=== PATIENT | female | born 1980 | race Caucasian/White ===

== ENCOUNTER → 2017-10-11 | Outpatient (CLI) | payer OTHER ==
[~2017-10-11] MED LIST: ALPR.5T PO; AZIT500T PO; BENZ-13 PO; BUSP15TA60; CEFD300C3 PO; DULO30CA PO; DULO60CA6 PO; NDL40T PO; NITR-65 PO; ONDA-42 SL; PHEN200T27 PO; TRIA1TAB3 PO; VENL100T PO
--- NOTE | 2017-10-11 08:45 | Diagnostic Imaging Report ---
Bilateral breast ultrasound. Indication palpable lump in the outer aspect of the left breast and the nodules in the outer aspect of the right breast seen on mammography. Findings: In the left breast at the outer aspect around the palpable, no underlying lesion is identified. In the outer aspect of the right breast there is an axillary benign-appearing lymph node measuring 1.7 CM. The nodules seen on mammography are not visible by ultrasound. No suspicious masses seen. Impression: No suspicious finding is seen by ultrasound. The asymmetry in the outer aspect of the left breast near the palpable is probably summation artifact of the parenchyma and the circumscribed nodules in the outer aspect of the right breast are probably intramammary lymph nodes. Since there are no prior mammograms to compare, 6 months followup the mammogram to ensure stability is recommended. BI-RADS 3. Dictated by: Dictated on workstation # [id number]
--- NOTE | 2017-10-11 11:57 | Diagnostic Imaging Report ---
Bilateral diagnostic mammogram with tomography evaluation. INDICATION: Palpable lump in the outer aspect of the left breast. The current study was also evaluated with a Computer Aided Detection (CAD) system. COMPARISON: No prior studies are available for comparison. FINDINGS: The area of palpable lump in the outer aspect of the left breast demonstrates slightly asymmetric fibroglandular tissue seen with no definitive underlying mass. The breast parenchyma is of heterogeneously dense tissue bilaterally. There are two nodules in the outer aspect of the right breast up to 8 mm in size. These are circumscribed and are favored to be related to intramammary lymph nodes. IMPRESSION: 1. There is a slightly asymmetric density in the outer aspect of the left breast adjacent to the palpable area with no definite underlying lesion. 2. Subcentimeter nodules in the outer aspect of the right breast are favored to be intramammary lymph nodes. 3. Ultrasound evaluation pending. ACR BI-RADS Category 0: Incomplete. (Needs additional imaging evaluation). Result letter will be mailed to the patient. Note: At least 10% of breast cancer is not imaged by mammography. Dictated by: Dictated on workstation # [id number]
== END ==
LOC: RAD 07:23
PROVIDERS: ATTEND Family Medicine
DX: N63.20 Unspecified lump in the left breast, unspecified quadrant (principal); N63.10 Unspecified lump in the right breast, unspecified quadrant
CPT/HCPCS: 76642; 77066

== ENCOUNTER 2018-04-01 14:24 | Emergency (ER) | payer SELFPAY ==
[~2018-04-01] VITALS: Ht 162.6 cm; Wt 110.7 kg
[2018-04-01] MEDS ORDERED: ONDANSETRON 4 MG/2 ML (SDV) Z0FRAN IVP ONE (14:30)
[2018-04-01] MEDS ORDERED: NS IV 1000 ML 1,000 ML IV SCH (14:30)
--- OUTSIDE RECORDS SUMMARY | 2018-04-01 14:30 | XMS REPORT ---
Author Author KAITLYNN SALDANA Organization [facility] Address [address] [place] [address] Care Team Providers Care Airport Skilled Maintenance Supervisor Name Role Phone SMITH SALDANAE Unavailable PROBLEMS Type Condition ICD9-CM Code [id number] Code Onset Dates Condition Status SNOMED Code Problem Sleep apnea in adult G47.33 Active 87437625 Problem Hypertension I10 Active 05510762 Problem Lumbago M54.5 Active 322417657 Problem Seborrheic keratoses L82.1 Active 112300035 Problem Female hirsutism L68.0 Active 42769392 Problem Hyperlipidemia E78.5 Active 63398538 Problem Chronic fatigue R53.82 Active 46044189 Problem Left sided abdominal pain of unknown cause R10.30 Active 351449992 Problem Obesity, unspecified E66.9 Active 706724882 Problem Generalized anxiety disorder F41.1 Active 980719286 Problem Hypercholesteremia E78.0 Active 70013415 Problem Family history of hypercholesterolemia Z83.49 Active 326570336 ALLERGIES Substance Reaction Event Type Date Status Amoxicillin Unknown Drug Allergy Nov, Active SOCIAL HISTORY Never Assessed PLAN OF CARE Activity Details Follow Up 4 Weeks Reason:weight VITAL SIGNS Height 64 in 2016-12-05 Weight 246.7 lbs 2016-12-05 Temperature 98.0 degrees Fahrenheit 2016-12-05 Heart Rate 76 bpm 2016-12-05 Respiratory Rate 18 2016-12-05 BMI 42.34 kg/m2 2016-12-05 Blood pressure systolic 124 mmHg 2016-12-05 Blood pressure diastolic 76 mmHg 2016-12-05 MEDICATIONS Medication Instructions Dosage Frequency Start Date End Date Duration Status Super B Complex Active Probiotic Active BusPIRone HCl 15 MG TAKE ONE-HALF TABLET BY MOUTH TWICE DAILY 30 Active Cymbalta 60 MG TAKE ONE CAPSULE BY MOUTH ONCE DAILY. TAKE WITH 30 MG CAPSULE 90 Active Triamterene-HCTZ 50-25 MG TAKE ONE CAPSULE BY MOUTH ONCE DAILY IN THE MORNING 30 Active Nadolol 40 mg 1 tablet 24h Active Contrave 8-90 MG Orally Twice a day 1 tab in the am x 7, then one bid x 7 then 2 in the am and one in thepm and 2 bid 12h Nov, Dec, 30 day(s) Active RESULTS No Results PROCEDURES No Known procedures IMMUNIZATIONS No Known Immunizations MEDICAL (GENERAL) HISTORY Type Description Date Medical History hypertension Medical History sleep apnea: sleep study recommended 7 cm CPAP Medical History back pain Medical History chronic sinusitis Medical History hirsutism Medical History obesity Medical History plantar fasciitis Medical History severe recurrent major depression Medical History bipolar II disorder Medical History dysthymic disorder Medical History generalized anxiety disorder Medical History panic disorder w/o agoraphobia Medical History fatty liver Medical History Depression Medical History Depression Surgical History fistula repair Surgical History section 2000, 2004 Surgical History tonsillectomy Hospitalization History surgeries
--- OUTSIDE RECORDS SUMMARY | 2018-04-01 14:30 | XMS REPORT ---
Author Author KAITLYNN SALDANA Organization [facility] Address [address] [place] [address] Care Team Providers Care Legal Instructor Name Role Phone RAMON SALDANANETTE Unavailable PROBLEMS Type Condition ICD9-CM Code [id number] Code Onset Dates Condition Status SNOMED Code Problem Hypertension I10 Active 43963075 Problem Obesity, unspecified E66.9 Active 798278182 Problem Generalized anxiety disorder F41.1 Active 103629277 Problem Morbid (severe) obesity due to excess calories E66.01 Active 675321384 Problem Body mass index (BMI) of 40.0-44.9 in adult Z68.41 Active 508581844 Problem Hypercholesteremia E78.0 Active 16562102 Problem Family history of hypercholesterolemia Z83.49 Active 599609719 Problem Chronic fatigue R53.82 Active 94143863 Problem Left sided abdominal pain of unknown cause R10.30 Active 486535699 Problem Female hirsutism L68.0 Active 48282197 Problem Hyperlipidemia E78.5 Active 11776248 Problem Sleep apnea in adult G47.33 Active 36144467 Problem Seborrheic keratoses L82.1 Active 638637424 Problem Lumbago M54.5 Active 439713984 ALLERGIES No Information SOCIAL HISTORY Never Assessed PLAN OF CARE VITAL SIGNS MEDICATIONS Medication Instructions Dosage Frequency Start Date End Date Duration Status Nadolol 40 mg 1 tablet 24h Active Triamterene-HCTZ 50-25 MG Orally Once a day TAKE ONE CAPSULE BY MOUTH ONCE DAILY IN THE MORNING 24h 30 days Active Cymbalta 60 mg Orally Once a day 1 capsule 24h 30 days Active RESULTS No Results PROCEDURES No Known [...]
--- OUTSIDE RECORDS SUMMARY | 2018-04-01 14:30 | XMS REPORT ---
Author Author NANCY GABRIEL [facility] Address [address] [place] [address] Care Team Providers Care Box Spring Maker Name Role Phone NANCY GABRIEL Unavailable PROBLEMS Type Condition ICD9-CM Code RHW82-LJ Code Onset Dates Condition Status SNOMED Code Problem Hypertension I10 Active 91810906 Problem Family history of hypercholesterolemia Z83.49 Active 300837794 Problem Sleep apnea in adult G47.33 Active 02364198 Problem Hypercholesteremia E78.0 Active 06697573 Problem Hyperlipidemia E78.5 Active 14863649 Problem Left sided abdominal pain of unknown cause R10.30 Active 606364616 Problem Female hirsutism L68.0 Active 80515535 Problem Lumbago M54.5 Active 999060746 Problem Seborrheic keratoses L82.1 Active 783158750 Problem Generalized anxiety disorder F41.1 Active 556532643 Problem Obesity, unspecified E66.9 Active 290690984 ALLERGIES Substance Reaction Event Type Date Status Amoxicillin Unknown Drug Allergy Sep, Active SOCIAL HISTORY No smoking Hx information available PLAN OF CARE Activity Details Follow Up 6 Months Reason: VITAL SIGNS Height 64 in 2016-10-09 Weight 244 lbs 2016-10-09 Temperature 98.4 degrees Fahrenheit 2016-10-09 Heart Rate 80 bpm 2016-10-09 Respiratory Rate 18 2016-10-09 BMI 41.88 kg/m2 2016-10-09 Blood pressure systolic 112 mmHg 2016-10-09 Blood pressure diastolic 68 mmHg 2016-10-09 MEDICATIONS Medication Instructions Dosage Frequency Start Date End Date Duration Status Probiotic Active Cymbalta 30 MG Orally, take with the 60 mg cap Once a day 1 capsule 24h Active BusPIRone HCl 15 MG TAKE ONE-HALF TABLET BY MOUTH TWICE DAILY 30 Active Super B Complex Active Cymbalta 60 mg Orally, take with the 30mg cap Once a day 1 capsule 24h Active Triamterene-HCTZ 50-25 MG TAKE ONE CAPSULE BY MOUTH ONCE DAILY IN THE MORNING 30 Active Nadolol 40 mg 1 tablet 24h Active RESULTS Name Result Date Reference Range [facility] 2016-10-09 Glucose, Serum 102 65-99 BUN 11 6-20 Creatinine, Serum 0.68 0.57-1.00 eGFR If NonAfricn Am 112 >59 eGFR If Africn Am 129 >59 BUN/Creatinine Ratio 16 8-20 Sodium, Serum 139 134-144 Potassium, Serum 4.9 3.5-5.2 Chloride, Serum 97 96-106 Carbon Dioxide, Total 25 18-29 Calcium, Serum 9.7 8.7-10.2 PROCEDURES Procedure Date Ordered Related Diagnosis Body Site BASIC METABOLIC PANEL Oct 09, 2016 PPV23 (PNEUMOVAX) Oct 09, 2016 VENIPUNCT, ROUTINE* Oct 09, 2016 SINGLE IMMUNIZATION ADMIN Oct 09, 2016 Office Visit, Est Pt., Level 2 Oct 09, 2016 IMMUNIZATIONS Vaccine Route Administration Date Status PPV23 (PNEUMOVAX) IM Intramuscular Oct 09, 2016 Administered
--- OUTSIDE RECORDS SUMMARY | 2018-04-01 14:30 | XMS REPORT ---
Author Author CORNELL HUNT [facility] Address [address] [place] [address] Care Team Providers Care Collator Hand Name Role Phone CORNELL HUNT Unavailable PROBLEMS Type Condition ICD9-CM Code [id number] Code Onset Dates Condition Status SNOMED Code Problem Hypertension I10 Active 83378993 Problem Obesity, unspecified E66.9 Active 011700018 Problem Generalized anxiety disorder F41.1 Active 477976726 Problem Morbid (severe) obesity due to excess calories E66.01 Active 396552852 Problem Body mass index (BMI) of 40.0-44.9 in adult Z68.41 Active 099261716 Problem Hypercholesteremia E78.0 Active 12972102 Problem Family history of hypercholesterolemia Z83.49 Active 720719645 Problem Chronic fatigue R53.82 Active 20945480 Problem Left sided abdominal pain of unknown cause R10.30 Active 922467288 Problem Female hirsutism L68.0 Active 67964156 Problem Hyperlipidemia E78.5 Active 62251522 Problem Sleep apnea in adult G47.33 Active 83830432 Problem Seborrheic keratoses L82.1 Active 407896024 Problem Lumbago M54.5 Active 536719413 ALLERGIES Substance Reaction Event Type Date Status Amoxicillin Unknown Drug Allergy February, Active SOCIAL HISTORY Never Assessed PLAN OF CARE Activity Details Follow Up prn Reason: VITAL SIGNS Height 64 in 2017-02-19 Weight 246.8 lbs 2017-02-19 Temperature 97.8 degrees Fahrenheit 2017-02-19 Heart Rate 78 bpm 2017-02-19 Respiratory Rate 20 2017-02-19 BMI 42.36 kg/m2 2017-02-19 Blood pressure systolic 130 mmHg 2017-02-19 Blood pressure diastolic 94 mmHg 2017-02-19 MEDICATIONS Medication Instructions Dosage Frequency Start Date End Date Duration Status Probiotic Active BusPIRone HCl 15 MG TAKE ONE-HALF TABLET BY MOUTH TWICE DAILY Active Cymbalta 60 MG TAKE ONE CAPSULE BY MOUTH ONCE DAILY. TAKE WITH 30 MG CAPSULE Active Pyridium 200 MG Orally Three times a day 1 tablet after meals 8h February, February, 2 day(s) Active Nadolol 40 mg 1 tablet 24h Active Lorazepam 0.5 MG Orally 2 times a day 1 tablet as needed 12h 15 Dec, 2016 Active Triamterene-HCTZ 50-25 MG TAKE ONE CAPSULE BY MOUTH ONCE DAILY IN THE MORNING Active Super B Complex Active RESULTS Name Result Date Reference Range UA LONG DIP (IN HOUSE) 2017-02-19 Lot # [id number] Exp date 2018-02-17 Clarity clear Color yellow Odor none GLU negative DAYLIN negative KET negative SG 1.015 BLO negative pH 6.0 Protein negative URO 0.2 NIT negative CHANTE negative Lot # [id number] Exp date 2017-11 PROCEDURES Procedure Date Ordered Result Body Site URINALYSIS, AUTO, W/O SCOPE February 19, 2017 IMMUNIZATIONS No Known Immunizations MEDICAL (GENERAL) HISTORY [...]
--- OUTSIDE RECORDS SUMMARY | 2018-04-01 14:30 | XMS REPORT ---
Author Author KAITLYNN SALDANA [facility] e[employer] Address Unknown Phone Unavailable Care Team Providers Care Stereotyper Apprentice Name Role Phone KAITLYNN SALDANA CP Unavailable Allergies No Known Allergies Problems Problem Type Condition Code Onset Dates Condition Status Problem Panic disorder without agoraphobia F41.0 Active Problem Lumbago M54.5 Active Problem Seborrheic keratoses L82.1 Active Problem Atopic dermatitis L20.9 Active Problem Generalized anxiety disorder F41.1 Active Problem Female hirsutism L68.0 Active Problem Plantar fascial fibromatosis M72.2 Active Problem Major depressive disorder, recurrent, moderate F33.1 Active Problem Bipolar disorder, unspecified F31.9 Active Problem Obesity, unspecified E66.9 Active Problem Hyperlipidemia E78.5 Active Problem Hypertension I10 Active Problem Sleep apnea in adult G47.33 Active Problem Hypercholesteremia E78.0 Active Problem Family history of hypercholesterolemia Z83.49 Active Medications No Known Medications Results No Known Results Summary Purpose eClinicalWorks Submission
--- OUTSIDE RECORDS SUMMARY | 2018-04-01 14:31 | XMS REPORT ---
Author Author KAITLYNN SALDANA Organization [facility] Address [address] [place] [address] Care Team Providers Care Stem Sizer Name Role Phone KAITLYNN SALDANA Unavailable PROBLEMS Type Condition ICD9-CM Code [id number] Code Onset Dates Condition Status SNOMED Code Problem Seborrheic keratoses L82.1 Active 627387563 Problem Hyperlipidemia E78.5 Active 79719742 Problem Female hirsutism L68.0 Active 70137950 Problem Family history of hypercholesterolemia Z83.49 Active 145952142 Problem Hypercholesteremia E78.0 Active 21978284 Problem Left sided abdominal pain of unknown cause R10.30 Active 813610453 Problem Obesity, unspecified E66.9 Active 840311838 Problem Lumbago M54.5 Active 648476243 Problem Sleep apnea in adult G47.33 Active 01355096 Problem Generalized anxiety disorder F41.1 Active 030921657 Problem Hypertension I10 Active 97392363 ALLERGIES Unknown Allergies SOCIAL HISTORY No smoking Hx information available PLAN OF CARE VITAL SIGNS MEDICATIONS Unknown Medications RESULTS No Results PROCEDURES No Known procedures IMMUNIZATIONS No Known Immunizations
--- OUTSIDE RECORDS SUMMARY | 2018-04-01 14:31 | XMS REPORT ---
Author Author MARY GUARDADO [employer] Address Unknown Phone Unavailable Care Team Providers Care Master Naval Parachutist Name Role Phone MARY GUARDADO Unavailable Allergies, Adverse Reactions, Alerts Substance Reaction Event Type Amoxicillin Info Not Available Drug Allergy Problems Problem Type Condition Code Onset Dates Condition Status Assessment Obesity, unspecified obesity severity, unspecified obesity type E66.9 Active Problem Sleep apnea in adult G47.33 Active Assessment Female hirsutism L68.0 Active Problem Family history of hypercholesterolemia Z83.49 Active Assessment Depression, unspecified depression type F32.9 Active Problem Panic disorder without agoraphobia F41.0 Active Problem Lumbago M54.5 Active Problem Seborrheic keratoses L82.1 Active Problem Atopic dermatitis L20.9 Active Problem Generalized anxiety disorder F41.1 Active Assessment Left sided abdominal pain R10.9 Active Assessment Abdominal cramping R10.9 Active Problem Female hirsutism L68.0 Active Assessment Generalized anxiety disorder F41.1 Active Problem Plantar fascial fibromatosis M72.2 Active Problem Major depressive disorder, recurrent, moderate F33.1 Active Problem Bipolar disorder, unspecified F31.9 Active Problem Obesity, unspecified E66.9 Active Assessment Yeast infection B37.9 Active Assessment Encounter for screening for malignant neoplasm of cervix Z12.4 Active Assessment Other fatigue R53.83 Active Assessment Family history of diabetes mellitus Z83.3 Active Problem Hyperlipidemia E78.5 Active Problem Hypertension I10 Active Assessment Well woman exam Z01.419 Active Problem Hypercholesteremia E78.0 Active Medications Medication Code System Code Instructions Start Date End Date Status Dosage Diflucan [facility] 2[facility] [address]-70 150 MG Orally Once a day Oct 27, 2015 1 tablet Lorazepam [facility] [place] 2] [address]-38 1 mg Nov 12, 2014 1 Tablet by Oral route 2 times per day PRN Nadolol [facility] [place]NOTE 2] [address]-07 40 mg 1 TAB orally once a day Nov 12, 2014 1 tablet by Oral route 1 time per day buspirone ND 0 7.5 mg Nov 12, 2014 1 tablet by Oral route 2 times per day Cymbalta [facility] [place] 2] [address]-52 60 mg Dec 19, 2011 1 capsule by Oral route 1 time per day for 14 days Probiotic [facility] [place]NOTE 2] [address] Orally not defined Super B Complex NDC 0 not defined Triamterene-HCTZ [facility] [place]NOTE 2] 42945784624 50-25 MG Orally Once a day 1 capsule in the morning Cymbalta [facility] [place]NOTE 2] [address]-84 30 MG Orally Twice a day 1 capsule Procedures Procedure Coding System Code Date CULTURE, BACTERIA, OTHER CPT-4 40195 Oct 27, 2015 Preventive Care Est Pt. Age 18-39 CPT-4 84657 Oct 27, 2015 SPECIMEN HANDLING CPT-4 83815 Oct 27, 2015 Vital Signs Date/Time: Oct 27, 2015 Temperature 97.9 F Weight 245.4 lbs Height 64 in BMI 42.12 Index Blood Pressure Diastolic 76 mmHg Blood Pressure Systolic 120 mmHg Cardiac Monitoring Heart Rate 74 bpm Results No Known Results Summary Purpose eClinicalWorks Submission
--- OUTSIDE RECORDS SUMMARY | 2018-04-01 14:31 | XMS REPORT ---
Author Author OSVALDO RODRIGUEZ Organization [facility] Address [address] [place] [address] Care Team Providers Care Railroad Dispatcher Name Role Phone OSVALDO RODRIGUEZ Unavailable PROBLEMS Type Condition ICD9-CM Code LPZ72-RB Code Onset Dates Condition Status SNOMED Code Problem Seborrheic keratoses L82.1 Active 924997647 Problem Hyperlipidemia E78.5 Active 12959041 Problem Female hirsutism L68.0 Active 69983315 Problem Family history of hypercholesterolemia Z83.49 Active 784282824 Problem Hypercholesteremia E78.0 Active 86216008 Problem Left sided abdominal pain of unknown cause R10.30 Active 521280745 Problem Obesity, unspecified E66.9 Active 313532053 Problem Lumbago M54.5 Active 943933121 Problem Sleep apnea in adult G47.33 Active 80285085 Problem Generalized anxiety disorder F41.1 Active 952759230 Problem Hypertension I10 Active 38012274 ALLERGIES Unknown Allergies SOCIAL HISTORY No smoking Hx information available PLAN OF CARE Activity Details Follow Up 4 Weeks Reason: VITAL SIGNS MEDICATIONS Unknown Medications RESULTS No Results PROCEDURES Procedure Date Ordered Related Diagnosis Body Site Psychotherapy, patient &/family, 45 minutes, established patient Nov 27, 2016 IMMUNIZATIONS No Known Immunizations
--- OUTSIDE RECORDS SUMMARY | 2018-04-01 14:31 | XMS REPORT ---
Author KAITLYNN Cervantes [facility] eClinicalWorks Address Unknown Phone Unavailable Care Team Providers Care Doughnut Dough Mixer Name Role Phone KAITLYNN SALDANA CP Unavailable Allergies, Adverse Reactions, Alerts Substance Reaction Event Type Amoxicillin Info Not Available Drug Allergy Problems Problem Type Condition Code Onset Dates Condition Status Problem Sleep apnea in adult G47.33 Active Problem Seborrheic keratoses L82.1 Active Problem Family history of hypercholesterolemia Z83.49 Active Problem Depression F32.9 Active Problem Anxiety F41.9 Active Problem Left sided abdominal pain of unknown cause R10.30 Active Problem Obesity, unspecified E66.9 Active Problem Lumbago M54.5 Active Problem Female hirsutism L68.0 Active Problem Generalized anxiety disorder F41.1 Active Assessment Lumbago M54.5 Active Assessment Anxiety F41.9 Active Assessment Hypertension I10 Active Problem Hypercholesteremia E78.0 Active Assessment Obesity, unspecified E66.9 Active Problem Hyperlipidemia E78.5 Active Assessment Hypercholesteremia E78.0 Active Problem Hypertension I10 Active Medications Medication Code System Code Instructions Start Date End Date Status Dosage Cymbalta [facility] [address]-01 30 MG Orally, take with the 60 mg cap Once a day 1 capsule BusPIRone HCl [facility] [id number] 15 MG TAKE ONE-HALF TABLET BY MOUTH TWICE DAILY Probiotic [facility] [address] Orally not defined Super B Complex NDC 0 not defined Cymbalta [facility] [address]-30 60 mg Orally, take with the 30mg cap Once a day 1 capsule Triamterene-HCTZ [facility] 15207512878 50-25 MG Orally Once a day needs appt prior to anymore refills 1 capsule in the morning Nadolol [facility] [address]-73 40 MG Orally 2 times a day 1 tablet Procedures Procedure Coding System Code Date Office Visit, Est Pt., Level 4 CPT-4 59707 May 07, 2016 Vital Signs Date/Time: May 07, 2016 Cardiac Monitoring Heart Rate 92 bpm Weight 242.5 lbs Height 64 in Blood Pressure Diastolic 76 mmHg Blood Pressure Systolic 110 mmHg Results No Known Results Summary Purpose eClinicalWorks Submission
--- OUTSIDE RECORDS SUMMARY | 2018-04-01 14:31 | XMS REPORT ---
Author Author OSVALDO RODRIGUEZ Organization [facility] Address [address] [place] [address] Care Team Providers Care Consulting Networking Engineer Name Role Phone OSVALDO RODRIGUEZ Unavailable PROBLEMS Type Condition ICD9-CM Code NXB44-ZY Code Onset Dates Condition Status SNOMED Code Problem Hypertension I10 Active 97205632 Problem Obesity, unspecified E66.9 Active 296160901 Problem Generalized anxiety disorder F41.1 Active 700215021 Problem Morbid (severe) obesity due to excess calories E66.01 Active 276291675 Problem Body mass index (BMI) of 40.0-44.9 in adult Z68.41 Active 068192200 Problem Hypercholesteremia E78.0 Active 57409741 Problem Family history of hypercholesterolemia Z83.49 Active 665376700 Problem Chronic fatigue R53.82 Active 46006481 Problem Left sided abdominal pain of unknown cause R10.30 Active 851432651 Problem Female hirsutism L68.0 Active 91123015 Problem Hyperlipidemia E78.5 Active 95019783 Problem Sleep apnea in adult G47.33 Active 03356492 Problem Seborrheic keratoses L82.1 Active 376834548 Problem Lumbago M54.5 Active 180500050 ALLERGIES No Information ENCOUNTERS Encounter Location Date Diagnosis [facility] [id number] [address] Jan, Generalized anxiety disorder F41.1 [facility] [id number], [place] [address] Dec, [place] [id number] [place] [address] 06814- 3110 Nov, Body mass index (BMI) of 40.0-44.9 in adult Z68.41 ; Hypertension I10 and Seasonal allergic rhinitis, unspecified trigger J30.2 [place] [id number] [place] [address] 41869- 7770 Nov, Hypertension I10 [facility] [id number] [place] [address] 51017- 6013 Nov, Generalized anxiety disorder 300.02 [facility] [id number] [place] [address] 18271- 8780 Nov, [facility] [id number] [place] [address] 11273- 1428 Oct, [facility] [id number] [place] [address] 51316- 1556 Oct, [facility] [id number] [place] [address] 82393- 9527 Oct, Acute chest wall pain R07.89 [facility] [id number] [place] [address] 51630- 9657 Oct, [facility] [id number] [place] [address] 49945- 0244 Sep, Left breast mass N63.20 [facility] [id number] [place] [address] 38154- 5636 Sep, Left breast mass N63.20 [facility] [id number] [place] [address] 25015- 2491 Aug, Hypertension I10 [facility] [id number] [place] [address] 38078- 9415 07 Aug, 2017 Generalized anxiety disorder 300.02 [facility] [id number] [place] [address] 78894- 4304 Jul, Generalized anxiety disorder 300.02 [facility] [id number] [place] [address] 48876- 6654 Jul, Sleep apnea in adult G47.33 [facility] [id number] [place] [address] 40523- 0494 Jul, Hypertension I10 ; Sleep apnea in adult G47.33 ; Body mass index (BMI) of 40.0-44.9 in adult Z68.41 ; Morbid (severe) obesity due to excess calories E66.01 and Female hirsutism L68.0 [facility] [id number] [place] [address] 57909- 9894 Jul, Generalized anxiety disorder 300.02 [place] [id number] [place] [address] 80724- 0973 Jul, Generalized anxiety disorder 300.02 [facility] [id number] [place] [address] 09243 -0346 Jun, Chronic fatigue R53.82 [place] [id number] [place] [address] 67493- 1534 Jun, Generalized anxiety disorder F41.1 [place] [id number] [place] [address] 13717- 3769 May, Generalized anxiety disorder 300.02 [facility] [id number] [place] [address] 41588- 1055 Apr, Generalized anxiety disorder F41.1 ; Hypertension I10 ; Hyperlipidemia E78.5 ; Female hirsutism L68.0 and Sleep apnea in adult G47.33 [place] [id number] [place] [address] 94030- 4150 Mar, Hypertension I10 and Generalized anxiety disorder F41.1 [place] [id number] [place] [address] 34440- 6888 Mar, [place] [id number] [place] [address] 51559- 4661 February, Hypertension I10 and Generalized anxiety disorder F41.1 [place] [id number] [place] [address] 19139- 4809 February, Generalized anxiety disorder 300.02 [facility] [id number] [place] [address] 03486 -5710 February, Pelvic pain R10.2 and Painful bladder spasm R30.1 [place] [id number] [place] [address] 05374- 4894 Jan, Generalized anxiety disorder 300.02 [place] [id number] [place] [address] 03757- 5078 Dec, Obesity, unspecified E66.9 ; Generalized anxiety disorder F41.1 and Hypertension I10 [place] [id number] [place] [address] 17857- 2774 Nov, Generalized anxiety disorder F41.1 ; Hypertension I10 ; Depression F32.9 and Obesity, unspecified E66.9 [place] [id number] [place] [address] 39091- 7406 Nov, Generalized anxiety disorder 300.02 [place] [address] 56846- 3797 Oct, [place] [id number] [place] [address] 24714- 8471 Sep, History of pneumonia Z87.01 ; Hypokalemia E87.6 ; Hypertension I10 and Encounter for immunization Z23 [place] [address] [place] [address] 11107- 8477 Jul, [address] [id number] [place] [address] 04468- 5587 Apr, Hypertension I10 ; Hypercholesteremia E78.0 ; Obesity, unspecified E66.9 ; Anxiety F41.9 and Lumbago M54.5 [id number] [place] [address] 24092- 4886 Apr, Depression F32.9 [place] [id number] [place] [address] 75480- 6282 Mar, Essential (primary) hypertension I10 [facility] [address] [id number] [place] [address] Jan [facility] [id number] [place] [address] 85208- 9082 Dec, [facility] [id number] [place] [address] 49963- 9841 Dec, Generalized anxiety disorder F41.1 and Hypertension I10 [facility] [id number] [place] [address] 39523- 3667 Dec, [facility] [address] 02939- 3091 Dec, Abdominal pain R10.9 [place] [address] 17926- 4959 Dec, Left sided abdominal pain of unknown cause R10.30 [place] [id number] [place] [address] 10857- 9574 Nov, Generalized anxiety disorder 300.02 [facility] [id number] [place] [address] 93172- 4508 Nov, Female hirsutism L68.0 ; Hypertension I10 ; Hyperlipidemia E78.5 ; Depression F32.9 and Anxiety F41.9 [place] [id number] [place] [address] 59804- 5427 Oct, [place] [id number] [place] [address] 66769- 1451 Oct, [place] [id number] [place] [address] 04844- 3660 Oct, [place] [id number] [place] [address] 71473- 0035 Oct, [place] [id number] [place] [address] 24227- 7496 Oct, Well woman exam Z01.419 ; Encounter for screening for malignant neoplasm of cervix Z12.4 ; Yeast infection B37.9 ; Family history of diabetes mellitus Z83.3 ; Other fatigue R53.83 ; Left sided abdominal pain R10.9 ; Abdominal cramping R10.9 ; Generalized anxiety disorder F41.1 ; Depression, unspecified depression type F32.9 ; Female hirsutism L68.0 and Obesity, unspecified obesity severity, unspecified obesity type E66.9 [facility] [id number] [place] [address] 27367- 8072 Jun, Generalized anxiety disorder 300.02 [facility] [address] 7[address]49- 1999 Jun, Chest pain 786.50 ; Hypertension 401.9 ; Hyperlipemia 272.4 and Obesity 278.00 [place] [address] 32586- 6500 Apr, Generalized anxiety disorder 300.02 [place] [address] 51791- 0640 Apr, Generalized anxiety disorder 300.02 [facility] [address] 80471- 8272 Apr, [facility] [address] 92942- 3947 Apr, [place] [address] 06080- 5462 Apr, Abdominal pain 789.00 ; Dehydration 276.51 ; Generalized anxiety disorder 300.02 ; Other and unspecified bipolar disorders 296.89 ; Obesity, unspecified 278.00 ; Family history of hypercholesterolemia V18.19 ; Diarrhea 787.91 ; Sleep apnea in adult 327.23 and Essential hypertension 401.9 [facility] [id number] [place] [address] 91472- 1611 Mar, Generalized anxiety disorder 300.02 [facility] [address] 36643- 0258 February, [facility] [address] 42990- 8853 Jan, [facility] [address] [facility] [id number] [place] [address]- 2848 Jan, [facility] [place] [facility] [address] [id number] [place] [address]- 7238 Oct, [facility] [place] [facility] [address] [id number] [place] [address]- 2477 Oct, [facility] [place] [facility] [address] [id number] [place] [address]- 8902 Oct, [facility] [place] [facility] [address] [id number] [place] [address]- 4032 Oct, [facility] [place] [facility] [address] [id number] [place] [address]- 2291 Sep, [facility] [place] [facility] [address] [id number] [place] 0863 Sep, [facility] [place] [facility] [address] [id number] [place] [address]- 0063 Sep, [facility] [place] [facility] [address] [id number] [place] [address]- 7789 Sep, [facility] [place] [facility] [address] [id number] [place] [address]- 5939 Sep, [facility] [place] [facility] [address] [id number] [place]- 4063 Sep, [facility] [place] [facility] [address] [id number] [place] [address]- 8039 Sep, [facility] [place] [facility] [address] [id number] [place] [address]- 5250 Aug, [facility] [place] [facility] [address] [id number] [place] [address]- 4749 Aug, [facility] [place] [facility] [address] [id number] [place] [address]- 9936 Aug, [facility] [place] [facility] [address] [id number] [place] [address]- 5762 Aug, [facility] [place] [facility] [address] [id number] [place] [address]- 7709 Jul, [facility] [place] [facility] [address] [id number] [place] [address]- 4949 Jul, [facility] [place] [facility] [address] [id number] [place] [address]- 7388 Jul, [facility] [place] [facility] [address] [id number] [place] [address]- 4718 Jul, [facility] [place] [facility] [address] [id number] [place] [address]- 0777 Jul, [facility] [place] [facility] [address] [id number] [place] [address]- 2595 Jul, [facility] [place] [facility] [address] [id number] [place] [address]- 0318 Jul, [facility] [place] [facility] [address] [id number] [place] [address]- 5460 Jul, [facility] [place] [facility] [address] [id number] [place] [address]- 3047 16 Jun, 2014 [facility] [place] [facility] [address] [id number] [address]- 7659 16 Jun, 2014 [facility] [place] [facility] [address] [id number], [place] [address]- 8703 15 Jun, 2014 [facility] [place] [facility] [address] [id number], [place] [address]- 9739 15 Jun, 2013 [facility] [place] [facility] [address] [id number] [place] [address]- 9547 09 Jun, 2014 [facility] [place] [facility] [address] [id number], [place] [address]- 2316 09 Jun, 2013 [facility] [place] [facility] [address] [id number] [place] [address]- 5256 04 Jun, 2013 [facility] [place] [facility] [address] [id number] [place] [address]- 0758 04 Jun, 2013 [facility] [place] [facility] [address] [id number] [place] [address]- 8940 Jun, 2013 [facility] [place] [facility] [address] [id number] [place] [address]- 2971 Jun, 2013 [facility] [place] [facility] [address] [id number] [place] [address]- 2276 Jun, 2013 [facility] [place] [facility] [address] [id number] [place] [address]- 7995 Jun, 2013 [facility] [place] [facility] [address] [id number] [place] [address]- 6481 Jun, 2013 [facility] [place] [facility] [address] [id number] [place] [address]- 9545 Jun, 2013 [facility] [place] [facility] [address] [id number] [place] [address]- 0682 Jun, 2013 [facility] [place] [facility] [address] [id number] [place] [address]- 7583 Jun, 2013 [facility] [place] [facility] [address] [id number] [place] [address]- 0080 May, [facility] [place] [facility] [address] [id number] [place] [address]- 7533 May, [facility] [place] [facility] [address] [id number] [place] [address]- 8278 Apr, [facility] [place] [facility] [address] [id number] [place] [address]- 6389 Apr, [facility] [place] [facility] [address] [id number] [place] [address]- 1616 Apr, [facility] [place] [facility] [address] [id number] [place] [address]- 3491 Apr, [facility] [place] [facility] [address] [id number] [place] [address]- 4218 Apr, [facility] [place] [facility] [address] [id number] [place] [address]- 6361 17 Apr, 2013 [facility] [place] [facility] [address] [id number] [place] [address]- 6631 Apr, 2013 [facility] [place] [facility] [address] [id number] [place] 6608 16 Apr, 2013 [facility] [place] [facility] [address] [id number] [place] [address]- 5968 Apr, 2013 [facility] [place] [facility] [address] [id number] [place] [address]- 6883 16 Apr, 2013 [facility] [place] [facility] [address] [id number] [place] [address]- 5001 Apr, 2013 [facility] [place] [facility] [address] [id number] [place] [address]- 0759 14 Apr, 2013 [facility] [place] [facility] [address] [id number] [place] [address]- 5115 Apr, 2013 [facility] [place] [facility] [address] [id number] [place] [address]- 3260 Apr, 2013 [facility] [place] [facility] [address] [id number] [place] [address]- 8912 Apr, 2013 [facility] [place] [facility] [address] [id number] [place] [address]- 7376 Apr, 2013 [facility] [place] [facility] [address] [id number] [place] [address]- 5500 Apr, 2013 [facility] [place] [facility] [address] [id number] [place] [address]- 0845 Apr, 2013 [facility] [place] [facility] [address] [id number] [place] [address]- 5607 Apr, 2013 [facility] [place] [facility] [address] [id number] [place] [address]- 7184 Apr, 2013 [facility] [place] [facility] [address] [id number] [place] [address]- 4865 Mar, [facility] [place] [facility] [address] [id number] [place] [address]- 6449 Mar, [facility] [place] [facility] [address] [id number] [place] [address]- 0655 February, [facility] [place] [facility] [address] [id number] [place] [address]- 3966 February, [facility] [place] [facility] [address] [id number] [place] [address]- 0280 Jan, [facility] [place] [facility] [address] [id number] [place] [address]- 5431 Jan, [facility] [place] [facility] [address] [id number] [place] [address]- 2910 Jan, [facility] [place] [facility] [address] [id number] [place] [address]- 3399 Jan, [facility] [place] [facility] [address] [id number] [place] [address]- 9657 Dec, [facility] [place] [facility] [address] [id number] [place] [address]- 3690 Dec, [facility] [place] [facility] [address] [id number] [place] [address]- 6986 Oct, [facility] [place] [facility] [address] [id number] [place] [address]- 5602 Oct, [facility] [place] [facility] [address] [id number] [place] [address]- 6925 Oct, [facility] [place] [facility] [address] [id number] [place] [address]- 9192 Oct, [facility] [place] [facility] [address] [id number] [place] [address]- 0145 Aug, [facility] [place] [facility] [address] [id number] [place] [address]- 7546 Aug, [facility] [place] [facility] [address] [id number] [place] [address]- 5870 Aug, [facility] [address] [id number] [place] [address]- 9503 Aug, [facility] [place] [facility] [address] [id number] [place] [address]- 9489 Jul, [facility] [place] [facility] [address] [id number] [place] [address]- 7939 Jul, [facility] [place] [facility] [address] [id number] [place] [address] 2543 Jul, [facility] [place] [facility] [address] [id number] [place] [address]- 7297 Jun, [facility] [place] [facility] [address] [id number] [place] [address]- 9255 May, [facility] [place] [facility] [address] [id number] [place] [address]- 6684 Apr, [facility] [place] [facility] [address] [id number] [place] [address]- 5154 Apr, [facility] [place] [facility] [address] [id number] [place] [address]- 8458 Apr, [facility] [place] [facility] [address] [id number] [place] [address]- 5088 Apr, [facility] [place] [facility] [address] [id number] [place] [address]- 9037 Mar, [facility] [place] [facility] [address] [id number] [place] [address]- 1123 Mar, [facility] [place] [facility] [address] [id number] [place] [address]- 8291 Mar, [facility] [place] [facility] [address] [id number] [place] [address]- 2546 Mar, [facility] [place] [facility] [address] [id number] [place] [address]- 2493 February, [facility] [address] [id number] [place] [address]- 3734 February, [facility] [address] [id number] [place] [address]- 1524 February, [facility] [address] [id number] [place] [address]- 5182 February, [facility] [address] [id number] [place] [address]- 7177 February, [facility] [address] [id number] [place] [address]- 3154 Jan, [facility] [address] [id number] [place] [address]- 3144 Dec, [facility] [address] [id number] [place] [address]- 8112 Nov, [facility] [address] [id number] [place] [address]- 4831 Nov, [facility] [address] [id number] [place] [address]- 4728 Nov, [facility] [address] [id number] [place] [address]- 2007 Oct, [facility] [address] [id number] [place] [address]- 4922 Oct, [facility] [address] [id number], [place] [address]- 2027 Oct, [facility] [place] [facility] [address] [id number] [place] [address]- 9694 Oct, [facility] [address] [id number] [place] [address]- 9013 Oct, [facility] [place] [facility] [address] [id number] [place] [address] Oct, [facility] [address] [id number] [place] [address] Sep, [facility] [place] [facility] [address] [id number] [place] [address] Sep, [facility] [place] [facility] [address] [id number] [place] [address] Sep, [facility] [place] [facility] [address] [id number] [place] [address] Sep, [facility] [place] [facility] [address] [id number] [place] [address] Aug, [facility] [place] [facility] [address] [id number] [place] [address] Aug, [facility] [place] [facility] [address] [id number] [place] [address] Aug, [facility] [place] [facility] [address] [facility] [id number] [place] [address] Aug, [facility] [place] [facility] [address] [id number], [place] [address] Aug, [facility] [place] [facility] [address] [id number] [place] [address] Aug, [facility] [place] [facility] [address] [facility] [id number], [place] [address] Jul, [facility] [place] [facility] [address] [id number] [place] [address] Jul, [facility] [place] [facility] [address] [id number], [place] [address] Jul, [facility] [place] [facility] [address] [id number] [place] [address] Jul, [facility] [place] [facility] [address] [facility] [id number], [place] [address] Jul, [facility] [place] [facility] [address] [facility] [id number], [place] [address] Jul, [facility] [place] [facility] [address] [id number] [place] [address] Jul, [facility] [place] [facility] [address] [id number] [place] [address]- [address] Jul, [facility] [place] [facility] [address] [id number] [place] [address] Jul, [facility] [place] [facility] [address] [id number] [place] [address] Jul, [facility] [place] [facility] [address] [id number] [place] [address]- [address] Jun, [facility] [place] [facility] [address] [id number] [place] [address]- [address] 14 Jun, 2012 [facility] [place] [facility] [address] [id number] [place] [address] Jun, [facility] [place] [facility] [address] [id number] [place] [address] May, [facility] [place] [facility] [address] [id number] [place] [address] May, [facility] [place] [facility] [address] [id number] [place] [address]- [address] May, [facility] [place] [facility] [address] [id number] [place] [address]- [address] May, [facility] [place] [facility] [address] [id number] [place] [address] Apr, [facility] [place] [facility] [address] [id number] [place] [address] Apr, [facility] [place] [facility] [address] [id number] [place] [address] Apr, [facility] [place] [facility] [address] [id number] [place] [address] Apr, [facility] [place] [facility] [address] [id number] [place] [address] Mar, [facility] [place] [facility] [address] [id number] [place] [address] Mar, [facility] [place] [facility] [address] [id number] [place] [address] Mar, [facility] [place] [facility] [address] [id number] [place] [address] February, [facility] [place] [facility] [address] [id number] [place] [address] February, [facility] [place] [facility] [address] [id number] [place] [address]- [address] Jan, [facility] [place] [facility] [address] [id number] [place] [address] Jan, [facility] [place] [facility] [address] [id number] [place] [address] Jan, [facility] [place] [facility] [address] [id number] [place] [address] 29 Dec, 2011 [facility] [place] [facility] [address] [id number] [place] [address]- [address] 14 Dec, 2011 [facility] [place] [facility] [address] [id number] [place] [address]- [address] 14 Dec, 2011 [facility] [place] [facility] [address] [id number] [place] [address]- [address] 08 Dec, 2011 [facility] [place] [facility] [address] [id number] [place] [address]- [address] 29 Nov, 2011 [facility] [place] [facility] [address] [id number] [place] [address] Nov, [facility] [place] [facility] [address] [id number] [place] [address]- [address] 20 Nov, 2011 [facility] [place] [facility] [address] [id number] [place] [address]- [address] 16 Nov, 2011 [facility] [place] [facility] [address] [id number] [place] [address]- [address] 09 Nov, 2011 [facility] [address] [id number] [place] [address] Nov, [facility] [place] [facility] [address] [id number] [place] [address] Nov, [facility] [address] [id number] [place] [address] Oct, [facility] [place] [facility] [address] [id number] [place] [address] Oct, [facility] [place] [facility] [address] [id number] [place] [address] Oct, [facility] [place] [facility] [address] [id number] [place] [address] Oct, [facility] [address] [id number] [place] [address] Oct, [facility] [address] [id number] [place] [address] Oct, [facility] [address] [id number] [place] [address] Oct, [facility] [address] [id number] [place] [address] Oct, [facility] [address] [id number] [place] [address] Sep, [facility] [place] [facility] [address] [id number] [place] [address] Sep, [facility] [place] [facility] [address] [id number] [place] [address] Sep, [facility] [place] [facility] [address] [id number] [place] [address] Sep, [facility] [place] [facility] [address] [id number] [place] [address] Aug, [facility] [address] [address] Aug, [facility] [address], [place] [address] Aug, [facility] [address], [place] [address] Jul, [facility] [id number] [place] [address] Jul, [facility] [address], [place] [address] Jul, [facility] [id number] [place] [address] Oct, [facility] [address], [place] [address] Aug, [facility] [address], [place] [address] Aug, [facility] [address], [place] [address] Sep, [facility] [address], [place] [address] Sep, [facility] [address], [place] [address] Sep, [facility] [address], [place] [address] Jan, IMMUNIZATIONS No Known Immunizations SOCIAL HISTORY Never Assessed REASON FOR VISIT f/u PLAN OF CARE Activity Details Follow Up prn Reason: VITAL SIGNS MEDICATIONS Unknown Medications RESULTS No Results PROCEDURES Procedure Date Ordered Result Body Site Psychotherapy, patient &/family, 45 minutes, established patient Jun 14, 2017 INSTRUCTIONS MEDICATIONS ADMINISTERED No Known Medications MEDICAL (GENERAL) HISTORY Type Description Date Medical [...]
--- OUTSIDE RECORDS SUMMARY | 2018-04-01 14:31 | XMS REPORT ---
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
--- OUTSIDE RECORDS SUMMARY | 2018-04-01 14:32 | XMS REPORT ---
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 Name Role Phone OSVALDO RODRIGUEZ CP Unavailable Allergies No Known Allergies Problems Problem Type Condition ICD-9 Code Onset Dates Condition Status Assessment Generalized anxiety disorder 300.02 Active Problem Panic disorder without agoraphobia 300.01 Active Problem Other seborrheic keratosis 702.19 Active Problem Unspecified sinusitis (chronic) 473.9 Active Problem Lumbago 724.2 Active Problem Generalized anxiety disorder 300.02 Active Problem Unspecified acute conjunctivitis 372.00 Active Problem Other atopic dermatitis and related conditions 691.8 Active Problem Screening for hypertension V81.1 Active Problem Hirsutism 704.1 Active Problem Hyperlipemia 272.4 Active Problem Abdominal pain 789.00 Active Problem Screening for malignant neoplasm of the cervix V76.2 Active Problem Special screening examination, human papillomavirus [HPV] V73.81 Active Problem Hypertension 401.9 Active Problem Unspecified backache 724.5 Active Problem Routine general medical examination at health care facility V70.0 Active Problem Dehydration 276.51 Active Problem Family history of hypercholesterolemia V18.19 Active Problem Sleep apnea in adult 327.23 Active Problem Encounter for long-term (current) use of other medications V58.69 Active Problem Major depressive disorder, recurrent episode, moderate 296.32 Active Problem Unspecified breast screening V76.10 Active Problem Acute sinusitis, unspecified 461.9 Active Problem Other and unspecified bipolar disorders 296.89 Active Problem Abdominal pain, other specified site 789.09 Active Problem Plantar fascial fibromatosis 728.71 Active Problem Obesity, unspecified 278.00 Active Medications No Known Medications Procedures Procedure Coding System Code Date Psychotherapy, patient &/family, 45 minutes, established patient CPT-4 02973 Jul 06, 2015 Results No Known Results Summary Purpose eClinicalWorks Submission
--- OUTSIDE RECORDS SUMMARY | 2018-04-01 14:32 | XMS REPORT ---
Author Author SHANA KAITLYNN Organization [facility] Address [address] [place] [address] Care Team Providers Care Radiation Technician Name Role Phone KAITLYNN SALDANA Unavailable PROBLEMS Type Condition ICD9-CM Code [id number] Code Onset Dates Condition Status SNOMED Code Problem Sleep apnea in adult G47.33 Active 11190270 Problem Hypertension I10 Active 58144000 Problem Lumbago M54.5 Active 307791564 Problem Seborrheic keratoses L82.1 Active 594219210 Problem Female hirsutism L68.0 Active 20148870 Problem Hyperlipidemia E78.5 Active 87138007 Problem Chronic fatigue R53.82 Active 11238567 Problem Left sided abdominal pain of unknown cause R10.30 Active 629291986 Problem Obesity, unspecified E66.9 Active 693696863 Problem Generalized anxiety disorder F41.1 Active 308230944 Problem Hypercholesteremia E78.0 Active 93487124 Problem Family history of hypercholesterolemia Z83.49 Active 692678082 ALLERGIES Substance Reaction Event Type Date Status Amoxicillin Unknown Drug Allergy Dec, Active SOCIAL HISTORY Never Assessed PLAN OF CARE Activity Details Follow Up 3 Months Reason: VITAL SIGNS Height 64 in 2017-01-02 Weight 245.0 lbs 2017-01-02 Temperature 98.2 degrees Fahrenheit 2017-01-02 Heart Rate 72 bpm 2017-01-02 Respiratory Rate 18 2017-01-02 BMI 42.05 kg/m2 2017-01-02 Blood pressure systolic 124 mmHg 2017-01-02 Blood pressure diastolic 74 mmHg 2017-01-02 MEDICATIONS Medication Instructions Dosage Frequency Start Date End Date Duration Status Nadolol 40 mg 1 tablet 24h Active Triamterene-HCTZ 50-25 MG TAKE ONE CAPSULE BY MOUTH ONCE DAILY IN THE MORNING Active Probiotic Active Lorazepam 0.5 MG Orally 2 times a day 1 tablet as needed 12h 15 Dec, 2016 Active Super B Complex Active Cymbalta 60 MG TAKE ONE CAPSULE BY MOUTH ONCE DAILY. TAKE WITH 30 MG CAPSULE Active BusPIRone HCl 15 MG TAKE ONE-HALF TABLET BY MOUTH TWICE DAILY Active RESULTS No Results PROCEDURES No Known [...]
--- OUTSIDE RECORDS SUMMARY | 2018-04-01 14:32 | XMS REPORT ---
Author Author OSVALDO RODRIGUEZ [facility] Address [address] [place] [address] Care Team Providers Care Two Way Radio Technician Name Role Phone OSVALDO RODRIGUEZ Unavailable PROBLEMS Type Condition ICD9-CM Code LLR04-PY Code Onset Dates Condition Status SNOMED Code Problem Generalized anxiety disorder F41.1 Active 782458641 Problem Family history of hypercholesterolemia Z83.49 Active 042356070 Problem Obesity, unspecified E66.9 Active 926315285 Problem Rectal bleeding K62.5 Active 05593925 Problem Body mass index (BMI) of 40.0-44.9 in adult Z68.41 Active 049877404 Problem Left sided abdominal pain of unknown cause R10.30 Active 349556806 Problem Hypercholesteremia E78.0 Active 56634787 Problem Morbid (severe) obesity due to excess calories E66.01 Active 955390723 Problem Chronic fatigue R53.82 Active 38033002 Problem Hyperlipidemia E78.5 Active 62316382 Problem Sleep apnea in adult G47.33 Active 56469002 Problem Seborrheic keratoses L82.1 Active 785559236 Problem Lumbago M54.5 Active 048197924 Problem Female hirsutism L68.0 Active 19078768 Problem Hypertension I10 Active 09389300 ALLERGIES No Information ENCOUNTERS Encounter Location Date Diagnosis [facility] [address] [id number] [address] February, [facility] [id number] [place] [address] 15902- 2594 February, Rectal bleeding K62.5 and BMI 40.0-44.9, adult Z68.41 [facility] [id number] [place] [address] 75553- 2480 Jan, 2018 BMI 40.0-44.9, adult Z68.41 and Skin irritation R23.8 [facility] [id number] [place] [address] 39311- 1458 Jan, Generalized anxiety disorder F41.1 [facility] [id number] [place] [address] 81959- 0746 Dec, [facility] [address] [address]81- 0336 Nov, Body mass index (BMI) of 40.0-44.9 in adult Z68.41 ; Hypertension I10 and Seasonal allergic rhinitis, unspecified trigger J30.2 [facility] [address] 25160- 1187 Nov, Hypertension I10 [facility] [id number] [place] [address] 69680- 7472 Nov, Generalized anxiety disorder 300.02 [facility] [address] 12668- 2573 Nov, [facility] [id number] [place] [address] 94494- 1483 Oct, [facility] [id number] [place] [address] 14570- 0771 Oct, [facility] [id number] [place] [address] 43170- 2306 Oct, Acute chest wall pain R07.89 [facility] [id number] [place] [address] 02539- 3875 Oct, [facility] [id number] [place] [address] 46145- 1103 Sep, Left breast mass N63.20 [facility] [id number] [place] [address] 19729- 2810 Sep, Left breast mass N63.20 [facility] [id number] [place] [address] 38578- 6082 Aug, Hypertension I10 [facility] [id number] [place] [address] 40708- 8986 Aug, Generalized anxiety disorder 300.02 [facility] [id number] [place] [address] 37707- 1204 Jul, Generalized anxiety disorder 300.02 [facility] [id number] [place] [address] 15050- 1559 Jul, Sleep apnea in adult G47.33 [facility] [address] 02804- 7406 Jul, Hypertension I10 ; Sleep apnea in adult G47.33 ; Body mass index (BMI) of 40.0-44.9 in adult Z68.41 ; Morbid (severe) obesity due to excess calories E66.01 and Female hirsutism L68.0 [facility] [id number] [place] [address] 98313- 9104 Jul, Generalized anxiety disorder 300.02 [facility] [id number] [place] [address] 03941- 7380 Jul, Generalized anxiety disorder 300.02 [facility] [id number] [place] [address] 64401 -9137 Jun, Chronic fatigue R53.82 [facility] [id number] [place] [address] 44902- 6050 Jun, Generalized anxiety disorder F41.1 [facility] [id number] [place] [address] 94296- 1487 May, Generalized anxiety disorder 300.02 [facility] [id number] [place] [address] 72916- 3328 Apr, Generalized anxiety disorder F41.1 ; Hypertension I10 ; Hyperlipidemia E78.5 ; Female hirsutism L68.0 and Sleep apnea in adult G47.33 [facility] [id number] [place] [address] 93944- 5792 Mar, Hypertension I10 and Generalized anxiety disorder F41.1 [facility] [id number] [place] [address] 09162- 7346 Mar, [facility] [address] 39950- 9535 February, Hypertension I10 and Generalized anxiety disorder F41.1 [facility] [address] 11434- 6236 February, Generalized anxiety disorder 300.02 [facility] [address] 27697 -0495 February, Pelvic pain R10.2 and Painful bladder spasm R30.1 [facility] [address] 90138- 1047 Jan, Generalized anxiety disorder 300.02 [address] [facility] [address] 34222- 6576 Dec, Obesity, unspecified E66.9 ; Generalized anxiety disorder F41.1 and Hypertension I10 [address] [facility] [address] 78964- 0813 Nov, Generalized anxiety disorder F41.1 ; Hypertension I10 ; Depression F32.9 and Obesity, unspecified E66.9 [facility] [id number] [place] [address] 54721- 3589 Nov, Generalized anxiety disorder 300.02 [facility] [id number] [place] [address] 29427- 0757 Oct, [facility] [address] 07080- 9006 Sep, History of pneumonia Z87.01 ; Hypokalemia E87.6 ; Hypertension I10 and Encounter for immunization Z23 [facility] [id number] [place] [address] 17024- 4716 Jul, [facility] [address] 35664- 7571 Apr, Hypertension I10 ; Hypercholesteremia E78.0 ; Obesity, unspecified E66.9 ; Anxiety F41.9 and Lumbago M54.5 [facility] [id number] [place] [address] 20783- 0724 Apr, Depression F32.9 [facility] [id number] [place] [address] 07152- 5761 Mar, Essential (primary) hypertension I10 [address] [id number] [place] [address] Jan [id number] [place] [address] 08448- 0075 Dec, [facility] [facility] [id number] [place] [address] 04071- 9797 Dec, Generalized anxiety disorder F41.1 and Hypertension I10 [facility] [id number] [place] [address] 67173- 0303 Dec, [facility] [id number] [place] [address] 24819- 5326 Dec, Abdominal pain R10.9 [facility] [id number] [place] [address] 48741- 4268 Dec, Left sided abdominal pain of unknown cause R10.30 [facility] [id number] [place] [address] 25682- 4257 Nov, Generalized anxiety disorder 300.02 [facility] [id number] [place] [address] 83950- 2816 Nov, Female hirsutism L68.0 ; Hypertension I10 ; Hyperlipidemia E78.5 ; Depression F32.9 and Anxiety F41.9 [address] [facility] [id number] [place] [address] 24030- 7552 Oct, [facility] [id number] [place] [address] 60867- 6552 Oct, [facility] [address] [address] 4154 Oct, [facility] [id number] [place] [address] 63385- 2095 Oct, [facility] [id number] [place] [address] 64885- 6027 Oct, Well woman exam Z01.419 ; Encounter [...] unspecified obesity severity, unspecified obesity type E66.9 [facility] [id number] [place] [address] 50250- 2568 Jun, Generalized anxiety disorder 300.02 [facility] [id number] [place] [address] 18929- 9595 Jun, Chest pain 786.50 ; Hypertension 401.9 ; Hyperlipemia 272.4 and Obesity 278.00 [facility] [id number] [place] [address] 45041- 2333 Apr, Generalized anxiety disorder 300.02 [address] [id number] [place] [address] 65823- 6555 Apr, Generalized anxiety disorder 300.02 [facility] [id number] [place] [address] 98049- 6402 Apr, [facility] [id number] [place] [address] 20822- 8821 Apr, [facility] [id number] [place] [address] 30422- 1019 Apr, Abdominal pain 789.00 ; Dehydration 276.51 ; Generalized anxiety disorder 300.02 ; Other and unspecified bipolar disorders 296.89 ; Obesity, unspecified 278.00 ; Family history of hypercholesterolemia V18.19 ; Diarrhea 787.91 ; Sleep apnea in adult 327.23 and Essential hypertension 401.9 [facility] [id number] [place] [address] 94466- 7037 Mar, Generalized anxiety disorder 300.02 [facility] [id number] [place] [address] 95118- 7820 February, [facility] [id number] [place] [address] 79615- 8795 Jan, [facility] [id number] [place] [address] 22882- 2940 Jan, [facility] [id number] [place] [address] 64137- 2737 Oct, [facility] [id number] [place] [address] 25270- 8761 Oct, [facility] [id number] [place] [address] 46241- 7729 Oct, [facility] [id number] [place] [address] 48880- 8349 Oct, [facility] [id number] [place] [address] 85883- 8812 Sep, [facility] [id number] [place] [address] 79943- 8669 Sep, [facility] [id number] [place] [address] 78579- 1376 Sep, [facility] [id number] [place] [address] 244884- 3408 Sep, [facility] [id number] [place] [address] 600243- 1669 Sep, [facility] [id number] [place] [address] 24622- 5819 Sep, [facility] [place] [facility] [address] [id number] [place] [address]- 9651 Sep, [facility] [place] [facility] [address] [id number] [place] [address]- 4850 Aug, [facility] [place] [facility] [address] [id number] [place] [address]- 4846 Aug, [facility] [place] [facility] [address] [id number] [place] [address]- 5386 Aug, [facility] [place] [facility] [address] [id number] [place] [address]- 3542 Aug, [facility] [place] [facility] [address] [id number] [place] [address]- 4652 Jul, [facility] [place] [facility] [address] [id number] [place] 8293 Jul, [facility] [place] [facility] [address] [id number] [place] [address]- 8660 Jul, [facility] [place] [facility] [address] [id number] [place] [address]- 9538 Jul, [facility] [place] [facility] [address] [id number] [place] [address]- 7011 Jul, [facility] [place] [facility] [address] [id number] [place] [address]- 6169 Jul, [facility] [place] [facility] [address] [id number] [place] [address]- 7072 Jul, [facility] [place] [facility] [address] [id number] [place] [address]- 5747 Jul, [facility] [place] [facility] [address] [id number] [place] [address]- 1416 16 Jun, 2014 [facility] [place] [facility] [address] [id number] [place] [address]- 4296 16 Jun, 2014 [facility] [place] [facility] [address] [id number] [place] [address]- 1685 15 Sep, 2013 [facility] [place] [facility] [address] [id number] [place] [address]- 8934 15 Sep, 2013 [facility] [place] [facility] [address] [id number] [place] [address]- 5140 09 Sep, 2013 [facility] [place] [facility] [address] [id number] [place] [address]- 0201 09 Sep, 2013 [facility] [place] [facility] [address] [id number] [place] [address]- 8876 04 Sep, 2013 [facility] [place] [facility] [address] [id number] [place] [address]- 6470 04 Sep, 2013 [facility] [place] [facility] [address] [id number] [place] [address]- 7241 02 Jun, 2013 [facility] [place] [facility] [address] [id number] [place] [address]- 6799 Jun, 2013 [facility] [place] [facility] [address] [id number] [place] [address]- 4412 02 Jun, 2013 [facility] [place] [facility] [address] [id number] [place] [address]- 2375 02 Jun, 2013 [facility] [place] [facility] [address] [id number] [place] [address]- 7144 Jun, 2013 [facility] [place] [facility] [address] [id number] [address]- 8576 Jun, 2013 [facility] [place] [facility] [address] [id number], [place] [address]- 4448 Jun, 2013 [facility] [place] [facility] [address] [id number] [place] [address]- 6729 Jun, 2013 [facility] [place] [facility] [address] [id number] [place] [address]- 4497 May, [facility] [place] [facility] [address] [id number] [place] [address]- 2962 May, [facility] [place] [facility] [address] [id number] [place] [address]- 6049 31 Apr, 2013 [facility] [place] [facility] [address] [id number] [place] [address]- 7022 Apr, 2013 [facility] [place] [facility] [address] [id number] [place] [address]- 5872 Apr, 2013 [facility] [place] [facility] [address] [id number] [place] [address]- 9974 Apr, 2013 [facility] [place] [facility] [address] [id number] [place] [address]- 6293 17 Apr, 2013 [facility] [place] [facility] [address] [id number] [place] [address]- 5293 17 Apr, 2013 [facility] [place] [facility] [address] [id number] [place] [address]- 5339 16 Apr, 2013 [facility] [place] [facility] [address] [id number] [place] [address]- 5798 16 Apr, 2013 [facility] [place] [facility] [address] [id number] [place] [address]- 8517 16 Apr, 2013 [facility] [place] [facility] [address] [id number] [place] [address]- 8154 Apr, 2013 [facility] [place] [facility] [address] [id number] [place] [address]- 8374 14 Apr, 2013 [facility] [place] [facility] [address] [id number] [place] [address]- 6693 14 Apr, 2013 [facility] [place] [facility] [address] [id number] [place] [address]- 4184 Apr, 2013 [facility] [place] [facility] [address] [id number] [place] [address]- 4476 Apr, 2013 [facility] [place] [facility] [address] [id number] [place] [address]- 4574 Apr, 2013 [facility] [place] [facility] [address] [id number] [place] [address]- 5906 07 Apr, 2014 [facility] [place] [facility] [address] [id number] [place] [address]- 0280 Apr, [facility] [place] [facility] [address] [id number] [place] [address]- 9305 Apr, [facility] [place] [facility] [address] [id number] [place] [address]- 1217 Apr, [facility] [place] [facility] [address] [id number] [place] [address]- 7151 Apr, [facility] [place] [facility] [address] [id number] [place] [address]- 9833 Mar, [facility] [place] [facility] [address] [id number] [place] [address]- 5989 Mar, [facility] [place] [facility] [address] [id number] [place] [address]- 3558 February, [facility] [place] [facility] [address] [id number] [place] [address]- 6784 February, [facility] [place] [facility] [address] [id number] [place] [address]- 8574 Jan, [facility] [place] [facility] [address] [id number] [place] [address]- 6408 Jan, [facility] [place] [facility] [address] [id number] [place] [address]- 5218 Jan, [facility] [place] [facility] [address] [id number] [place] [address]- 8584 Jan, [facility] [place] [facility] [address] [id number] [place] [address]- 6460 Dec, [facility] [place] [facility] [address] [id number] [place] [address]- 2028 Dec, [facility] [place] [facility] [address] [id number] [place] [address]- 3395 Oct, [facility] [place] [facility] [address] [id number] [place] [address]- 7576 Oct, [facility] [place] [facility] [address] [id number] [place] [address]- 0947 Oct, [facility] [place] [facility] [address] [id number] [place] [address]- 6999 Oct, [facility] [place] [facility] [address] [id number] [place] [address]- 5056 Aug, [facility] [place] [facility] [address] [id number] [place] [address]- 4004 Aug, [facility] [place] [facility] [address] [id number] [place] [address]- 3494 Aug, [facility] [place] [facility] [address] [id number] [place] 2923 Aug, [facility] [place] [facility] [address] [id number] [place] [address]- 2138 Jul, [facility] [place] [facility] [address] [id number] [place] [address]- 7362 Jul, [facility] [place] [facility] [address] [id number] [place] [address]- 2219 Jul, [facility] [place] [facility] [address] [id number] [place] [address]- 5138 Jun, [facility] [place] [facility] [address] [id number] [place] [address]- 8822 May, [facility] [place] [facility] [address] [id number] [place] [address]- 2751 Apr, [facility] [place] [facility] [address] [id number] [place] [address]- 5185 Apr, [facility] [place] [facility] [address] [id number] [place] [address]- 4424 Apr, [facility] [place] [facility] [address] [id number] [place] [address]- 3765 Apr, [facility] [place] [facility] [address] [id number] [place] [address]- 1676 Mar, [facility] [address] [id number] [place] [address]- 6401 Mar, [facility] [address] [id number] [place] [address]- 1841 Mar, [facility] [address] [id number] [place] [address]- 5050 Mar, [facility] [address] [id number] [place] [address]- 5218 February, [facility] [address] [id number] [place] [address]- 8879 February, [facility] [address] [id number] [place] [address]- 2108 February, [facility] [address] [id number] [place] [address]- 9158 February, [facility] [address] [id number] [place] [address]- 1978 February, [facility] [address] [id number] [place] [address]- 9322 Jan, [facility] [address] [id number] [place] [address]- 5782 Dec, [facility] [address] [id number] [place] [address]- 7714 Nov, [facility] [address] [id number] [place] [address]- 5170 Nov, [facility] [address] [id number] [place] [address]- 7092 Nov, [facility] [address] [id number] [place] [address] Oct, [facility] [address] [id number] [place] [address] Oct, [facility] [address] [id number] [place] [address] Oct, [facility] [place] [facility] [address] [id number] [place] [address] Oct, [facility] [place] [facility] [address] [id number] [place] [address] Oct, [facility] [place] [facility] [address] [id number] [place] [address] Oct, [facility] [place] [facility] [address] [id number] [place] [address] Sep, [facility] [place] [facility] [address] [id number] [place] [address] Sep, [facility] [place] [facility] [address] [id number] [place] [address] Sep, [facility] [place] [facility] [address] [id number] [place] [address] Sep, [facility] [place] [facility] [address] [id number] [place] [address] Aug, [facility] [place] [facility] [address] [id number] [place] [address] Aug, [facility] [place] [facility] [address] [id number], [place] [address] Aug, [facility] [place] [facility] [address] [id number], [place] [address] Aug, [facility] [place] [facility] [address] [id number] [place] [address] Aug, [facility] [place] [facility] [address] [id number] [place] [address] Aug, [facility] [place] [facility] [address] [id number] [place] [address] Jul, [facility] [place] [facility] [address] [id number] [place] [address] Jul, [facility] [place] [facility] [address] [id number] [place] [address] Jul, [facility] [place] [facility] [address] [id number] [place] [address] Jul, [facility] [place] [facility] [address] [id number] [place] [address] Jul, [facility] [place] [facility] [address] [id number] [place] [address] Jul, [facility] [place] [facility] [address] [id number] [place] [address] Jul, [facility] [place] [facility] [address] [id number] [place] [address] Jul, [facility] [place] [facility] [address] [id number] [place] [address] Jul, [facility] [place] [facility] [address] [id number] [place] [address] Jul, [facility] [place] [facility] [address] [id number] [place] [address] 26 Jun, 2012 [facility] [place] [facility] [address] [id number] [place] [address] 14 Jun, 2012 [facility] [place] [facility] [address] [id number] [place] [address] 12 Jun, 2012 [facility] [place] [facility] [address] [id number] [place] [address] May, [facility] [place] [facility] [address] [id number] [place] [address] 16 May, 2012 [facility] [place] [facility] [address] [id number] [place] [address] May, [facility] [place] [facility] [address] [id number] [place] [address] May, [facility] [place] [facility] [address] [id number] [place] [address] Apr, [facility] [place] [facility] [address] [id number] [place] [address] 30 Apr, 2012 [facility] [place] [facility] [address] [id number] [place] [address] Apr, [facility] [place] [facility] [address] [id number] [place] [address] Apr, [facility] [place] [facility] [address] [id number] [place] [address] Mar, [facility] [place] [facility] [address] [id number] [place] [address] Mar, [facility] [place] [facility] [address] [id number] [place] [address] Mar, [facility] [place] [facility] [address] [id number] [place] [address] February, [facility] [place] [facility] [address] [id number] [place] [address] February, [facility] [place] [facility] [address] [id number] [place] [address] Jan, [facility] [place] [facility] [address] [id number] [place] [address] Jan, [facility] [place] [facility] [address] [id number] [place] [address] Jan, [facility] [place] [facility] [address] [id number] [place] [address] 29 Dec, 2011 [facility] [place] [facility] [address] [id number] [place] [address] 14 Dec, 2011 [facility] [place] [facility] [address] [id number] [place] [address] 14 Dec, 2011 [facility] [place] [facility] [address] [id number] [place] [address] Dec, [facility] [address] [id number] [place] [address] Nov, [facility] [address] [id number] [place] [address] Nov, [facility] [address] [id number] [place] [address] Nov, [facility] [address] [id number] [place] [address] 16 Nov, 2011 [facility] [address] [id number] [place] [address] Nov, [facility] [address] [id number] [place] [address] 06 Nov, 2011 [facility] [address] [facility] [id number] [place] [address] Nov, [facility] [address] [id number] [place] [address] Oct, [facility] [address] [id number] [place] [address] Oct, [facility] [address] [facility] [id number] [place] [address] Oct, [facility] [address] [id number] [place] [address] Oct, [facility] [place] [facility] [address] [id number] [place] [address] Oct, [facility] [place] [facility] [address] [id number] [place] [address] Oct, [facility] [place] [facility] [address] [facility] [id number] [place] [address] Oct, [facility] [place] [facility] [address] [facility] [id number] [place] [address] Oct, [facility] [place] [facility] [address] [id number] [place] [address] Sep, [facility] [place] [facility] [address] [id number] [place] [address] Sep, [facility] [place] [facility] [address] [id number] [place] [address] Sep, [facility] [place] [facility] [address] [id number] [place] [address] Sep, [facility] [place] [facility] [address] [id number] [place] [address] Aug, [facility] [place] [facility] [address] [id number] [place] [address] Aug, [facility] [place] [facility] [address] [id number] [place] Aug, [facility] [place] [facility] [address] [id number] [place] [address] Jul, [facility] [place] [facility] [address] [id number] [place] [address] Jul, [facility] [place] [facility] [address] [id number] [place] [address] Jul, [facility] [place] [facility] [address] [id number] [place] [address] Oct, [facility] [place] [facility] [address] [id number] [place] [address] Aug, [facility] [place] [facility] [address] [id number] [place] [address] 16 Aug, 2010 [facility] [place] [facility] [address] [id number] [place] [address] Sep, [facility] [place] [facility] [address] [id number] [place] [address] Sep, [facility] [place] [facility] [address] [id number] [place] [address] Sep, [facility] [address] [facility] [id number] [place] [address] Jan, IMMUNIZATIONS No Known Immunizations SOCIAL HISTORY Never Assessed REASON FOR VISIT f/u PLAN OF CARE Activity Details Follow Up prn Reason: VITAL SIGNS MEDICATIONS Unknown Medications RESULTS No Results PROCEDURES Procedure Date Ordered Result Body Site Psychotherapy, patient &/family, 45 minutes, established patient Jul 23, 2017 INSTRUCTIONS MEDICATIONS ADMINISTERED No Known Medications [...]
--- OUTSIDE RECORDS SUMMARY | 2018-04-01 14:33 | XMS REPORT ---
Author Author TANIA MOSS Organization [facility] Address [address] [place] [address] Care Team Providers Care Case Liner Name Role Phone TANIA MOSS Unavailable PROBLEMS Type Condition ICD9-CM Code EAF84-CM Code Onset Dates Condition Status SNOMED Code Problem Hypertension I10 Active 40219287 Problem Obesity, unspecified E66.9 Active 055185219 Problem Generalized anxiety disorder F41.1 Active 015301385 Problem Morbid (severe) obesity due to excess calories E66.01 Active 412279872 Problem Body mass index (BMI) of 40.0-44.9 in adult Z68.41 Active 506147056 Problem Hypercholesteremia E78.0 Active 34177676 Problem Family history of hypercholesterolemia Z83.49 Active 944356115 Problem Chronic fatigue R53.82 Active 35869684 Problem Left sided abdominal pain of unknown cause R10.30 Active 941465677 Problem Female hirsutism L68.0 Active 66451892 Problem Hyperlipidemia E78.5 Active 42383320 Problem Sleep apnea in adult G47.33 Active 05038920 Problem Seborrheic keratoses L82.1 Active 462060594 Problem Lumbago M54.5 Active 642571771 ALLERGIES Substance Reaction Event Type Date Status Amoxicillin Unknown Drug Allergy Jun, Active ENCOUNTERS Encounter Location Date Diagnosis [facility] [id number] [address] Jan, Generalized anxiety disorder F41.1 [facility] [address] [id number], [place] [address] Dec, [facility] [id number] [place] [address] 14446- 7467 Nov, Body mass index (BMI) of 40.0-44.9 in adult Z68.41 ; Hypertension I10 and Seasonal allergic rhinitis, unspecified trigger J30.2 [facility] [id number] [place] [address] 81724- 6743 Nov, Hypertension I10 [facility] [id number] [place] [address] 50955- 3670 Nov, Generalized anxiety disorder 300.02 [facility] [id number] [place] [address] 28351- 2920 Nov, [facility] [id number] [place] [address] 49315- 1607 Oct, [facility] [id number] [place] [address] 81999- 4040 Oct, [facility] [id number] [place] [address] 13191- 5816 Oct, Acute chest wall pain R07.89 [facility] [id number] [place] [address] 15710- 7867 Oct, [facility] [id number] [place] [address] 46849- 8924 Sep, Left breast mass N63.20 [facility] [id number] [place] [address] 72358- 8018 Sep, Left breast mass N63.20 [facility] [id number] [place] [address] 44787- 4143 Aug, Hypertension I10 [facility] [id number] [place] [address] 51056- 2908 Aug, Generalized anxiety disorder 300.02 [facility] [id number] [place] [address] 28630- 8478 Jul, Generalized anxiety disorder 300.02 [facility] [id number] [place] [address] 89126- 3615 Jul, Sleep apnea in adult G47.33 [facility] [id number] [place] [address] 00814- 6216 Jul, Hypertension I10 ; Sleep apnea in adult G47.33 ; Body mass index (BMI) of 40.0-44.9 in adult Z68.41 ; Morbid (severe) obesity due to excess calories E66.01 and Female hirsutism L68.0 [facility] [id number] [place] [address] 01422- 3869 Jul, Generalized anxiety disorder 300.02 [id number] [place] [address] 01626- 9633 Jul, Generalized anxiety disorder 300.02 [facility] [id number] [place] [address] 99047 -8412 Jun, Chronic fatigue R53.82 [id number] [place] [address] 07525- 5114 Jun, Generalized anxiety disorder F41.1 [address] [id number] [place] [address] 61638- 1178 May, Generalized anxiety disorder 300.02 [facility] [id number] [place] [address] 92090- 0557 Apr, Generalized anxiety disorder F41.1 ; Hypertension I10 ; Hyperlipidemia E78.5 ; Female hirsutism L68.0 and Sleep apnea in adult G47.33 [facility] [id number] [place] [address] 99516- 1268 Mar, Hypertension I10 and Generalized anxiety disorder F41.1 [facility] [id number] [place] [address] 28744- 7057 Mar, [id number] [place] [address] 64441- 8677 February, Hypertension I10 and Generalized anxiety disorder F41.1 [id number] [place] [address] 97880- 0249 February, Generalized anxiety disorder 300.02 [facility] [id number] [place] [address] 39200 -2603 February, Pelvic pain R10.2 and Painful bladder spasm R30.1 [id number] [place] [address] 57388- 6802 Jan, Generalized anxiety disorder 300.02 [id number] [place] [address] 21075- 3666 Dec, Obesity, unspecified E66.9 ; Generalized anxiety disorder F41.1 and Hypertension I10 [id number] [place] [address] 66815- 1357 Nov, Generalized anxiety disorder F41.1 ; Hypertension I10 ; Depression F32.9 and Obesity, unspecified E66.9 [address] [id number] [place] [address] 94635- 7378 Nov, Generalized anxiety disorder 300.02 [id number] [place] [address] 53233- 4197 Oct, [id number] [place] [address] 14910- 6248 Sep, History of pneumonia Z87.01 ; Hypokalemia E87.6 ; Hypertension I10 and Encounter for immunization Z23 [id number] [place] [address] 25247- 4362 Jul, [id number] [place] [address] 00824- 6286 Apr, Hypertension I10 ; Hypercholesteremia E78.0 ; Obesity, unspecified E66.9 ; Anxiety F41.9 and Lumbago M54.5 [id number] [place] [address] 66595- 5292 Apr, Depression F32.9 [address] [place] [address] 78564- 7482 Mar, Essential (primary) hypertension I10 [facility] [address] [id number] [place] [address] Jan [facility] [id number] [place] [address] 44879- 4054 Dec, [id number] [place] [address] 03661- 0012 Dec, Generalized anxiety disorder F41.1 and Hypertension I10 [id number] [place] [address] 68365- 8531 Dec, [id number] [place] [address] 23766- 8466 Dec, Abdominal pain R10.9 [address] 68165- 3798 Dec, Left sided abdominal pain of unknown cause R10.30 [address] [id number] [place] [address] 31688- 9851 Nov, Generalized anxiety disorder 300.02 [id number] [place] [address] 28980- 8859 Nov, Female hirsutism L68.0 ; Hypertension I10 ; Hyperlipidemia E78.5 ; Depression F32.9 and Anxiety F41.9 [id number] [place] [address] 31961- 9764 Oct, [id number] [place] [address] 12787- 7427 Oct, [id number] [place] [address] 85607- 3483 Oct, [id number] [place] [address] 26080- 6055 Oct, [id number] [place] [address] 48267- 0285 Oct, Well woman exam Z01.419 ; Encounter [...] unspecified obesity severity, unspecified obesity type E66.9 [facility] [id number] [place] [address] 43081- 2104 16 Jun, 2015 Generalized anxiety disorder 300.02 [facility] [address] 77527- 6096 Jun, Chest pain 786.50 ; Hypertension 401.9 ; Hyperlipemia 272.4 and Obesity 278.00 [address] 79784- 4896 Apr, Generalized anxiety disorder 300.02 [address] 01636- 6296 Apr, Generalized anxiety disorder 300.02 [facility] [address] 92767- 6050 Apr, [address] [id number] [place] [address] 39709- 6766 Apr, [id number] [place] [address] 75525- 9458 Apr, Abdominal pain 789.00 ; Dehydration 276.51 ; Generalized anxiety disorder 300.02 ; Other and unspecified bipolar disorders 296.89 ; Obesity, unspecified 278.00 ; Family history of hypercholesterolemia V18.19 ; Diarrhea 787.91 ; Sleep apnea in adult 327.23 and Essential hypertension 401.9 [address] [id number] [place] [address] 04383- 0557 Mar, Generalized anxiety disorder 300.02 [facility] [id number] [place] [address] 94856- 0453 February, [id number] [place] [address] 82603- 2066 Jan, [facility] [place] [facility] [address] [id number] [place] [address]- 0754 Jan, [facility] [place] [facility] [address] [id number] [place] [address]- 5097 Oct, [facility] [place] [facility] [address] [id number] [place] [address]- 1373 Oct, [facility] [place] [facility] [address] [id number] [place] [address]- 7862 Oct, [facility] [place] [facility] [address] [id number] [place] [address]- 3630 Oct, [facility] [place] [facility] [address] [id number] [place] [address]- 1973 Sep, [facility] [place] [facility] [address] [id number] [place] [address]- 5070 Sep, [facility] [place] [facility] [address] [id number] [place] [address]- 8879 Sep, [facility] [place] [facility] [address] [id number] [place] [address]- 0906 Sep, [facility] [place] [facility] [address] [id number] [place] [address]- 9393 Sep, [facility] [place] [facility] [address] [id number] [place] [address]- 5394 Sep, [facility] [place] [facility] [address] [id number] [place] [address]- 1389 Sep, [facility] [place] [facility] [address] [id number] [place] [address]- 0665 Aug, [facility] [place] [facility] [address] [id number] [place] [address]- 1917 Aug, [facility] [place] [facility] [address] [id number] [place] [address]- 9775 Aug, [facility] [place] [facility] [address] [id number] [address]- 3530 Aug, [facility] [place] [facility] [address] [id number] [place] [address]- 0179 Jul, [facility] [place] [facility] [address] [id number] [place] 0870 Jul, [facility] [place] [facility] [address] [id number] [place] [address]- 9753 Jul, [facility] [place] [facility] [address] [id number] [place] [address]- 1320 Jul, [facility] [place] [facility] [address] [id number] [place] [address]- 7975 Jul, [facility] [place] [facility] [address] [id number] [place] [address]- 0564 Jul, [facility] [place] [facility] [address] [id number] [place] [address]- 5555 Jul, [facility] [place] [facility] [address] [id number] [place] [address]- 9854 Jul, [facility] [place] [facility] [address] [id number] [place] [address]- 8427 16 Jun, 2014 [facility] [place] [facility] [address] [id number] [place] [address]- 5428 16 Jun, 2013 [facility] [place] [facility] [address] [id number] [address]- 0351 15 Jun, 2013 [facility] [place] [facility] [address] [id number], [place] [address]- 8713 15 Jun, 2013 [facility] [place] [facility] [address] [id number] [place] [address]- 2093 09 Jun, 2013 [facility] [place] [facility] [address] [id number] [place] [address]- 3562 09 Jun, 2013 [facility] [place] [facility] [address] [id number] [place] [address]- 4115 04 Jun, 2013 [facility] [place] [facility] [address] [id number] [place] [address]- 3323 04 Jun, 2013 [facility] [place] [facility] [address] [id number] [place] [address]- 2729 Jun, 2013 [facility] [place] [facility] [address] [id number] [place] [address]- 5235 Jun, 2013 [facility] [place] [facility] [address] [id number] [place] [address]- 2639 Jun, 2013 [facility] [place] [facility] [address] [id number] [place] [address]- 1635 Jun, 2013 [facility] [place] [facility] [address] [id number] [place] [address]- 5002 Jun, 2013 [facility] [place] [facility] [address] [id number] [place] [address]- 6985 Jun, 2013 [facility] [place] [facility] [address] [id number] [place] [address]- 1831 Jun, 2013 [facility] [place] [facility] [address] [id number] [place] [address]- 1812 Jun, 2013 [facility] [place] [facility] [address] [id number] [place] [address]- 2664 May, [facility] [place] [facility] [address] [id number] [place] [address]- 5514 May, [facility] [place] [facility] [address] [id number] [place] [address]- 5925 Apr, [facility] [place] [facility] [address] [id number] [place] [address]- 4236 Apr, [facility] [place] [facility] [address] [id number] [place] [address]- 6372 Apr, [facility] [place] [facility] [address] [id number] [place] [address]- 1857 Apr, [facility] [place] [facility] [address] [id number] [place] [address]- 8008 Apr, [facility] [place] [facility] [address] [id number] [place] [address]- 5804 17 Apr, 2013 [facility] [place] [facility] [address] [id number] [place] [address]- 5861 Apr, 2013 [facility] [place] [facility] [address] [id number] [place] [address]- 0733 16 Apr, 2013 [facility] [place] [facility] [address] [id number] [place] [address]- 7698 Apr, 2013 [facility] [place] [facility] [address] [id number] [place] [address]- 5415 Apr, 2013 [facility] [place] [facility] [address] [id number] [place] [address]- 7786 Apr, 2013 [facility] [place] [facility] [address] [id number] [place] [address]- 6754 14 Apr, 2013 [facility] [place] [facility] [address] [id number] [place] [address]- 8625 Apr, 2013 [facility] [place] [facility] [address] [id number] [place] [address]- 1600 Apr, 2013 [facility] [place] [facility] [address] [id number] [place] [address]- 9439 Apr, 2013 [facility] [place] [facility] [address] [id number] [place] [address]- 7477 Apr, 2013 [facility] [place] [facility] [address] [id number] [place] [address]- 5747 Apr, 2013 [facility] [place] [facility] [address] [id number] [place] [address]- 1916 Apr, 2013 [facility] [place] [facility] [address] [id number] [place] [address]- 5598 Apr, 2013 [facility] [place] [facility] [address] [id number] [place] [address]- 9902 Apr, 2013 [facility] [place] [facility] [address] [id number] [place] [address]- 7768 Mar, [facility] [place] [facility] [address] [id number] [place] [address]- 9893 Mar, [facility] [place] [facility] [address] [id number] [place] [address]- 1406 February, [facility] [place] [facility] [address] [id number] [place] [address]- 9872 February, [facility] [place] [facility] [address] [id number] [place] [address]- 0518 Jan, [facility] [place] [facility] [address] [id number] [place] [address]- 4727 Jan, [facility] [place] [facility] [address] [id number] [place] [address]- 2208 Jan, [facility] [place] [facility] [address] [id number] [place] [address]- 7629 Jan, [facility] [place] [facility] [address] [id number] [place] [address]- 5071 Dec, [facility] [place] [facility] [address] [id number] [place] [address]- 5978 Dec, [facility] [place] [facility] [address] [id number] [place] [address]- 1822 Oct, [facility] [place] [facility] [address] [id number] [place] [address]- 1532 Oct, [facility] [place] [facility] [address] [id number] [place] [address]- 6917 Oct, [facility] [place] [facility] [address] [id number] [place] [address]- 7454 Oct, [facility] [place] [facility] [address] [id number] [place] [address]- 9456 Aug, [facility] [place] [facility] [address] [id number] [place] [address]- 4855 Aug, [facility] [place] [facility] [address] [id number] [place] [address]- 9496 Aug, [facility] [place] [facility] [address] [id number] [place] [address]- 5554 Aug, [facility] [place] [facility] [address] [id number] [place] [address] 2546 Jul, [facility] [place] [facility] [address] [id number] [place] [address]- 8306 Jul, [facility] [place] [facility] [address] [id number] [place] [address]- 2546 Jul, [facility] [place] [facility] [address] [id number] [place] [address]- 5826 Jun, [facility] [place] [facility] [address] [id number] [place] [address]- 0832 May, [facility] [place] [facility] [address] [id number] [place] [address]- 2690 Apr, [facility] [place] [facility] [address] [id number] [place] [address]- 2371 Apr, [facility] [place] [facility] [address] [id number] [place] [address]- 2749 Apr, [facility] [place] [facility] [address] [id number] [place] [address]- 2730 Apr, [facility] [place] [facility] [address] [id number] [place] [address]- 9506 Mar, [facility] [place] [facility] [address] [id number] [place] [address]- 6374 Mar, [facility] [place] [facility] [address] [id number] [place] [address]- 1851 Mar, [facility] [place] [facility] [address] [id number] [place] [address]- 2546 Mar, [facility] [place] [facility] [address] [id number] [place] [address]- 5690 February, [facility] [address] [id number] [place] [address] February, [facility] [address] [id number] [place] [address] February, [facility] [address] [id number] [place] [address] February, [facility] [place] [facility] [address] [id number] [place] [address] February, [facility] [address] [id number] [place] [address] Jan, [facility] [place] [facility] [address] [id number] [place] [address] Dec, [facility] [place] [facility] [address] [id number] [place] [address] Nov, [facility] [place] [facility] [address] [id number] [place] [address] Nov, [facility] [place] [facility] [address] [id number] [place] [address] Nov, [facility] [place] [facility] [address] [id number] [place] [address] Oct, [facility] [place] [facility] [address] [id number] [place] [address] Oct, [facility] [place] [facility] [address] [id number] [place] [address] Oct, [facility] [place] [facility] [address] [id number] [place] [address] Oct, [facility] [place] [facility] [address] [id number] [place] [address] Oct, [facility] [place] [facility] [address] [id number] [place] [address] Oct, [facility] [place] [facility] [address] [id number] [place] [address] Sep, [facility] [place] [facility] [address] [id number] [place] [address] Sep, [facility] [place] [facility] [address] [id number] [place] [address] Sep, [facility] [place] [facility] [address] [id number] [place] [address] Sep, [facility] [place] [facility] [address] [id number] [place] [address] Aug, [facility] [place] [facility] [address] [id number] [place] [address] Aug, [facility] [place] [facility] [address] [id number] [place] [address] Aug, [facility] [place] [facility] [address] [facility] [id number] [place] [address] Aug, [facility] [place] [facility] [address] [id number] [place] [address] Aug, [facility] [place] [facility] [address] [facility] [id number] [place] [address] Aug, [facility] [place] [facility] [address] [facility] [id number] [place] [address] Jul, [facility] [place] [facility] [address] [id number] [place] [address] Jul, [facility] [place] [facility] [address] [id number] [place] [address] Jul, [facility] [place] [facility] [address] [id number] [place] [address] Jul, [facility] [place] [facility] [address] [facility] [id number] [place] [address] Jul, [facility] [place] [facility] [address] [id number] [place] [address] Jul, [facility] [place] [facility] [address] [id number] [place] [address] Jul, [facility] [place] [facility] [address] [id number] [place] [address] Jul, [facility] [place] [facility] [address] [id number] [place] [address] Jul, [facility] [place] [facility] [address] [id number] [place] [address] Jul, [facility] [place] [facility] [address] [id number] [place] [address] Jun, [facility] [place] [facility] [address] [id number] [place] [address]- [address] 14 Jun, 2012 [facility] [place] [facility] [address] [id number] [place] [address] Jun, [facility] [place] [facility] [address] [id number] [place] [address] May, [facility] [place] [facility] [address] [id number] [place] [address] May, [facility] [place] [facility] [address] [id number] [place] [address] May, [facility] [place] [facility] [address] [id number] [place] [address] May, [facility] [place] [facility] [address] [id number] [place] [address] Apr, [facility] [place] [facility] [address] [id number] [place] [address] Apr, [facility] [place] [facility] [address] [id number] [place] [address] Apr, [facility] [place] [facility] [address] [id number] [place] [address] Apr, [facility] [place] [facility] [address] [id number], [place] [address] Mar, [facility] [address] [id number] [place] [address] Mar, [facility] [place] [facility] [address] [id number] [place] [address] Mar, [facility] [place] [facility] [address] [id number] [place] [address] February, [facility] [place] [facility] [address] [id number] [place] [address] February, [facility] [place] [facility] [address] [id number] [place] [address] Jan, [facility] [place] [facility] [address] [id number] [place] [address] Jan, [facility] [address] [facility] [id number] [place] [address]- [address] Jan, [facility] [place] [facility] [address] [address] [id number] [place] [address] 29 Dec, 2011 [facility] [place] [facility] [address] [id number] [place] [address] 14 Dec, 2011 [facility] [place] [facility] [address] [id number] [place] [address] 14 Dec, 2011 [facility] [place] [facility] [address] [id number] [place] [address] 08 Dec, 2011 [facility] [place] [facility] [address] [id number] [place] [address] 29 Nov, 2011 [facility] [place] [facility] [address] [id number] [place] [address] Nov, [facility] [place] [facility] [address] [id number] [place] [address] 20 Nov, 2011 [facility] [place] [facility] [address] [facility] [id number] [place] [address] [address] 16 Nov, 2011 [facility] [place] [facility] [address] [id number] [place] [address] Nov, [facility] [address] [id number] [place] [address] Nov, [facility] [address] [id number] [place] [address] Nov, [facility] [address] [id number] [place] [address] Oct, [facility] [address] [id number] [place] [address] Oct, [facility] [address] [id number] [place] [address] Oct, [facility] [address] [id number] [place] [address] Oct, [facility] [address] [id number] [place] [address] Oct, [facility] [address] [id number] [place] [address] Oct, [facility] [address] [id number] [place] [address] Oct, [facility] [address] [id number] [place] [address] Oct, [facility] [address] [id number] [place] [address] Sep, [facility] [place] [facility] [address] [id number] [place] [address] Sep, [facility] [place] [facility] [address] [id number] [place] [address] Sep, [facility] [address] [id number] [place] [address] Sep, [facility] [address] [id number] [address] Aug, [facility] [id number] [address] Aug, [facility] [id number] [address] Aug, [facility] [id number] [address] Jul, [facility] [id number] [place] [address] Jul, [facility] [id number] [address] Jul, [facility] [id number] [place] [address] Oct, [facility] [id number] [place] [address] Aug, [facility] [id number] [place] [address] Aug, [facility] [address] [address] Sep, [facility] [address] [place] [address] Sep, [facility] [id number] [address] Sep, [facility] [address], [place] [address] Jan, IMMUNIZATIONS No Known Immunizations SOCIAL HISTORY Never Assessed REASON FOR VISIT Started Saturday with fatigue, jittery hands, ears popping, upest stomach, night sweats- thinks its hormone related JStrasserRN PLAN OF CARE VITAL SIGNS Height 64 in 2017-07-10 Weight 244.8 lbs 2017-07-10 Temperature 97.7 degrees Fahrenheit 2017-07-10 Heart Rate 80 bpm 2017-07-10 Respiratory Rate 2017-07-10 BMI 42.02 kg/m2 2017-07-10 Blood pressure systolic 110 mmHg 2017-07-10 Blood pressure diastolic 70 mmHg 2017-07-10 MEDICATIONS Medication Instructions Dosage Frequency Start Date End Date Duration Status Triamterene-HCTZ 50-25 MG TAKE ONE CAPSULE BY MOUTH IN THE MORNING 30 Active Nadolol 40 mg Orally Once a day 1 tablet 24h 90 days Active Lorazepam 0.5 MG Orally 2 times a day 1 tablet as needed 12h 15 Dec, 2016 Active Cymbalta 60 MG Orally, Take with a 30 mg Once a day 1 capsule 24h 30 days Active PredniSONE 20 mg Orally Once a day 2 tablets 24h 20 Jun, 2017 Jun, 05 days Active BusPIRone HCl 15 mg Orally Once a day TAKE ONE-HALF TABLET BY MOUTH TWICE DAILY 24h 180 days Active Super B Complex Active Probiotic Active Cymbalta 30 MG Orally, Take with 60 mg capsule Once a day 1 capsule 24h Jun, Active RESULTS Name Result Date Reference Range TSH 2017-07-10 TSH 1.640 0.450-4.500 CBC 2017-07-10 WBC 11.8 3.4-10.8 RBC 4.34 3.77-5.28 Hemoglobin 12.9 11.1-15.9 Hematocrit 39.3 34.0-46.6 MCV 91 79-97 MCH 29.7 26.6-33.0 MCHC 32.8 31.5-35.7 RDW 14.0 12.3-15.4 Platelets 415 150-379 Neutrophils 75 Lymphs 20 Monocytes 4 Eos 1 Basos 0 Neutrophils (Absolute) 8.8 1.4-7.0 Lymphs (Absolute) 2.3 0.7-3.1 Monocytes(Absolute) 0.5 0.1-0.9 Eos (Absolute) 0.2 0.0-0.4 Baso (Absolute) 0.0 0.0-0.2 Immature Granulocytes 0 Immature Grans (Abs) 0.0 0.0-0.1 CMP 2017-07-10 Glucose, Serum 94 65-99 BUN 12 6-20 Creatinine, Serum 0.71 0.57-1.00 eGFR If NonAfricn Am 108 >59 eGFR If Africn Am 125 >59 BUN/Creatinine Ratio 17 9-23 Sodium, Serum 138 134-144 Potassium, Serum 4.6 3.5-5.2 Chloride, Serum 96 96-106 Carbon Dioxide, Total 25 18-29 Calcium, Serum 9.7 8.7-10.2 Protein, Total, Serum 7.4 6.0-8.5 Albumin, Serum 4.4 3.5-5.5 Globulin, Total 3.0 1.5-4.5 A/G Ratio 1.5 1.2-2.2 Bilirubin, Total 0.3 0.0-1.2 Alkaline Phosphatase, S 117 39-117 AST (SGOT) 18 0-40 ALT (SGPT) 22 0-32 PROCEDURES Procedure Date Ordered Result Body Site ASSAY THYROID STIM HORMONE Jul 10, 2017 COMPREHEN METABOLIC PANEL Jul 10, 2017 COMPLETE CBC W/AUTO DIFF WBC Jul 10, 2017 VENIPUNCT, ROUTINE* Jul 10, 2017 INSTRUCTIONS MEDICATIONS ADMINISTERED No Known Medications [...]
--- OUTSIDE RECORDS SUMMARY | 2018-04-01 14:33 | XMS REPORT ---
Author Author KAITLYNN Weber Organization [facility] Address [address] [place] [address] Care Team Providers Care Onion Farmer Name Role Phone virgenSILVIA KAITLYNN Unavailable PROBLEMS Type Condition ICD9-CM Code [id number] Code Onset Dates Condition Status SNOMED Code Problem Hypertension I10 Active 82018101 Problem Obesity, unspecified E66.9 Active 661136137 Problem Generalized anxiety disorder F41.1 Active 756994191 Problem Morbid (severe) obesity due to excess calories E66.01 Active 813929944 Problem Body mass index (BMI) of 40.0-44.9 in adult Z68.41 Active 771384372 Problem Hypercholesteremia E78.0 Active 43117220 Problem Family history of hypercholesterolemia Z83.49 Active 161540740 Problem Chronic fatigue R53.82 Active 60620085 Problem Left sided abdominal pain of unknown cause R10.30 Active 212969538 Problem Female hirsutism L68.0 Active 80208732 Problem Hyperlipidemia E78.5 Active 25959067 Problem Sleep apnea in adult G47.33 Active 16463953 Problem Seborrheic keratoses L82.1 Active 152883224 Problem Lumbago M54.5 Active 235168128 ALLERGIES No Information ENCOUNTERS Encounter Location Date Diagnosis [facility] [id number] [place] [address] 99676- 9299 Jan, Generalized anxiety disorder F41.1 [facility] [id number] [place] [address] 30198- 1527 Dec, [facility] [id number] [place] [address] 62892- 4656 27 Nov, 2017 Body mass index (BMI) of 40.0-44.9 in adult Z68.41 ; Hypertension I10 and Seasonal allergic rhinitis, unspecified trigger J30.2 [facility] [id number] [place] [address] 90517- 8041 Nov, Hypertension I10 [facility] [id number] [place] [address] 57456- 6054 Nov, Generalized anxiety disorder 300.02 [facility] [id number] [place] [address] 96439- 6749 Nov, [facility] [id number] [place] [address] 06573- 4660 Oct, [facility] [id number] [place] [address] 93214- 5948 Oct, [facility] [id number] [place] [address] 24267- 1205 Oct, Acute chest wall pain R07.89 [facility] [id number] [place] [address] 46957- 9583 Oct, [facility] [id number] [place] [address] 68922- 1466 Sep, Left breast mass N63.20 [facility] [id number] [place] [address] 86359- 3061 Sep, Left breast mass N63.20 [facility] [id number] [place] [address] 39853- 5829 Aug, Hypertension I10 [facility] [id number] [place] [address] 17159- 1737 Aug, Generalized anxiety disorder 300.02 [facility] [id number] [place] [address] 16515- 1617 Jul, Generalized anxiety disorder 300.02 [facility] [id number] [place] [address] 16592- 9261 Jul, Sleep apnea in adult G47.33 [facility] [id number] [place] [address] 54989- 8878 Jul, Hypertension I10 ; Sleep apnea in adult G47.33 ; Body mass index (BMI) of 40.0-44.9 in adult Z68.41 ; Morbid (severe) obesity due to excess calories E66.01 and Female hirsutism L68.0 [facility] [id number] [place] [address] 73600- 2685 Jul, Generalized anxiety disorder 300.02 [place] [id number] [place] [address] 11999- 0673 Jul, Generalized anxiety disorder 300.02 [facility] [id number] [place] [address] 23738 -1813 Jun, Chronic fatigue R53.82 [place] [id number] [place] [address] 95841- 8782 Jun, Generalized anxiety disorder F41.1 [place] [id number] [place] [address] 00849- 7831 May, Generalized anxiety disorder 300.02 [facility] [id number] [place] [address] 99807- 4439 Apr, Generalized anxiety disorder F41.1 ; Hypertension I10 ; Hyperlipidemia E78.5 ; Female hirsutism L68.0 and Sleep apnea in adult G47.33 [facility] [id number] [place] [address] 61565- 3891 Mar, Hypertension I10 and Generalized anxiety disorder F41.1 [facility] [id number] [place] [address] 37376- 8537 Mar, [place] [id number] [place] [address] 80126- 2049 February, Hypertension I10 and Generalized anxiety disorder F41.1 [place] [id number] [place] [address] 71380- 8630 February, Generalized anxiety disorder 300.02 [facility] [id number] [place] [address] 64396 -1594 February, Pelvic pain R10.2 and Painful bladder spasm R30.1 [place] [id number] [place] [address] 35887- 7377 Jan, Generalized anxiety disorder 300.02 [place] [id number] [place] [address] 82155- 6968 Dec, Obesity, unspecified E66.9 ; Generalized anxiety disorder F41.1 and Hypertension I10 [place] [id number] [place] [address] 12989- 6434 Nov, Generalized anxiety disorder F41.1 ; Hypertension I10 ; Depression F32.9 and Obesity, unspecified E66.9 [place] [id number] [place] [address] 43023- 2801 Nov, Generalized anxiety disorder 300.02 [id number] [place] [address] 88880- 7641 Oct, [id number] [place] [address] 01539- 1197 Sep, History of pneumonia Z87.01 ; Hypokalemia E87.6 ; Hypertension I10 and Encounter for immunization Z23 [address] [place] [address] 29076- 4704 Jul, [id number] [place] [address] 32047- 0226 Apr, Hypertension I10 ; Hypercholesteremia E78.0 ; Obesity, unspecified E66.9 ; Anxiety F41.9 and Lumbago M54.5 [id number] [place] [address] 47024- 4527 Apr, Depression F32.9 [address] [place] [address] 31725- 9827 Mar, Essential (primary) hypertension I10 [facility] [address] [id number] [address] Jan [facility] [id number] [place] [address] 73581- 0443 Dec, [place] [id number] [place] [address] 42623- 9494 Dec, Generalized anxiety disorder F41.1 and Hypertension I10 [place] [id number] [place] [address] 17336- 9499 Dec, [place] [id number] [place] [address] 06915- 6040 Dec, Abdominal pain R10.9 [place] [address] 41402- 3587 Dec, Left sided abdominal pain of unknown cause R10.30 [place] [id number] [place] [address] 78875- 5826 Nov, Generalized anxiety disorder 300.02 [place] [id number] [place] [address] 85620- 6440 Nov, Female hirsutism L68.0 ; Hypertension I10 ; Hyperlipidemia E78.5 ; Depression F32.9 and Anxiety F41.9 [address] [place] [address] [place] [address] 83318- 9042 Oct, [place] [id number] [place] [address] 75381- 7819 Oct, [place] [id number] [place] [address] 99404- 6854 Oct, [place] [id number] [place] [address] 51842- 2503 Oct, [place] [id number] [place] [address] 87135- 9931 Oct, Well woman exam Z01.419 ; Encounter [...] unspecified obesity severity, unspecified obesity type E66.9 [facility] [id number] [place] [address] 84224- 5704 16 Jun, 2015 Generalized anxiety disorder 300.02 [facility] [address] 38916- 6174 Jun, Chest pain 786.50 ; Hypertension 401.9 ; Hyperlipemia 272.4 and Obesity 278.00 [address] [address] 35263- 8321 Apr, Generalized anxiety disorder 300.02 [place] [address] 41871- 3964 Apr, Generalized anxiety disorder 300.02 [facility] [address] 57704- 2063 Apr, [place] [id number] [place] [address] 19859- 5438 Apr, [place] [id number] [place] [address] 33980- 0378 Apr, Abdominal pain 789.00 ; Dehydration 276.51 ; Generalized anxiety disorder 300.02 ; Other and unspecified bipolar disorders 296.89 ; Obesity, unspecified 278.00 ; Family history of hypercholesterolemia V18.19 ; Diarrhea 787.91 ; Sleep apnea in adult 327.23 and Essential hypertension 401.9 [place] [id number] [place] [address] 76622- 8656 Mar, Generalized anxiety disorder 300.02 [facility] [id number] [place] [address] 29462- 1922 February, [place] [id number] [place] [address] 91415- 4379 Jan, [facility] [place] [facility] [address] [id number] [place] [address]- 0653 Jan, [facility] [place] [facility] [address] [id number] [place] [address]- 3208 Oct, [facility] [place] [facility] [address] [id number] [place] [address]- 2173 Oct, [facility] [place] [facility] [address] [id number] [place] [address]- 9167 Oct, [facility] [place] [facility] [address] [id number] [place] [address]- 5419 Oct, [facility] [place] [facility] [address] [id number] [place] [address]- 8997 Sep, [facility] [place] [facility] [address] [id number] [place] [address]- 7003 Sep, [facility] [place] [facility] [address] [id number] [place] [address]- 1559 Sep, [facility] [place] [facility] [address] [id number] [place] [address]- 6849 Sep, [facility] [place] [facility] [address] [id number] [place] [address]- 8222 Sep, [facility] [place] [facility] [address] [id number] [place] [address]- 8046 Sep, [facility] [place] [facility] [address] [id number] [place] [address]- 2232 Sep, [facility] [place] [facility] [address] [id number] [place] [address]- 8882 Aug, [facility] [place] [facility] [address] [id number] [place] [address]- 1205 Aug, [facility] [place] [facility] [address] [id number] [place] [address]- 9369 Aug, [facility] [place] [facility] [address] [id number], [place] [address]- 1900 Aug, [facility] [place] [facility] [address] [id number] [place] [address]- 2424 Jul, [facility] [place] [facility] [address] [id number] [place] 3219 Jul, [facility] [place] [facility] [address] [id number] [place] [address]- 2257 Jul, [facility] [place] [facility] [address] [id number] [place] [address]- 8778 Jul, [facility] [place] [facility] [address] [id number] [place] [address]- 2119 Jul, [facility] [place] [facility] [address] [id number] [place] [address]- 4695 Jul, [facility] [place] [facility] [address] [id number] [place] [address]- 6246 Jul, [facility] [place] [facility] [address] [id number] [place] [address]- 4614 Jul, [facility] [place] [facility] [address] [id number] [place] [address]- 7044 16 Jun, 2014 [facility] [place] [facility] [address] [id number] [place] [address]- 5194 16 Jun, 2013 [facility] [place] [facility] [address] [id number], [place] [address]- 9142 15 Jun, 2013 [facility] [place] [facility] [address] [id number], [place] [address]- 0085 15 Jun, 2013 [facility] [place] [facility] [address] [id number] [place] [address]- 8273 09 Jun, 2013 [facility] [place] [facility] [address] [id number] [place] [address]- 7096 09 Jun, 2013 [facility] [place] [facility] [address] [id number] [place] [address]- 1631 04 Jun, 2013 [facility] [place] [facility] [address] [id number] [place] [address]- 9869 04 Jun, 2013 [facility] [place] [facility] [address] [id number] [place] [address]- 5571 Jun, 2013 [facility] [place] [facility] [address] [id number] [place] [address]- 8708 Jun, 2013 [facility] [place] [facility] [address] [id number] [place] [address]- 0590 Jun, 2013 [facility] [place] [facility] [address] [id number] [place] [address]- 5366 Jun, 2013 [facility] [place] [facility] [address] [id number] [place] [address]- 1883 Jun, 2013 [facility] [place] [facility] [address] [id number] [place] [address]- 1852 Jun, 2013 [facility] [place] [facility] [address] [id number] [place] [address]- 6265 Jun, 2013 [facility] [place] [facility] [address] [id number] [place] [address]- 8395 Jun, 2013 [facility] [place] [facility] [address] [id number] [place] [address]- 7601 May, [facility] [place] [facility] [address] [id number] [place] [address]- 7663 May, [facility] [place] [facility] [address] [id number] [place] [address]- 6675 Apr, [facility] [place] [facility] [address] [id number] [place] [address]- 4793 Apr, [facility] [place] [facility] [address] [id number] [place] [address]- 7307 Apr, [facility] [place] [facility] [address] [id number] [place] [address]- 8850 Apr, [facility] [place] [facility] [address] [id number] [place] [address]- 3144 Apr, [facility] [place] [facility] [address] [id number] [place] [address]- 8819 17 Apr, 2013 [facility] [place] [facility] [address] [id number] [place] [address]- 5741 Apr, 2013 [facility] [place] [facility] [address] [id number] [place] [address]- 1437 16 Apr, 2013 [facility] [place] [facility] [address] [id number] [place] [address]- 3174 Apr, 2013 [facility] [place] [facility] [address] [id number] [place] [address]- 2022 Apr, 2013 [facility] [place] [facility] [address] [id number] [place] [address]- 5052 Apr, 2013 [facility] [place] [facility] [address] [id number] [place] [address]- 5992 14 Apr, 2013 [facility] [place] [facility] [address] [id number] [place] [address]- 4978 Apr, 2013 [facility] [place] [facility] [address] [id number] [place] [address]- 0210 Apr, 2013 [facility] [place] [facility] [address] [id number] [place] [address]- 4250 Apr, 2013 [facility] [place] [facility] [address] [id number] [place] [address]- 7485 Apr, 2013 [facility] [place] [facility] [address] [id number] [place] [address]- 6436 Apr, 2013 [facility] [place] [facility] [address] [id number] [place] [address]- 0832 Apr, 2013 [facility] [place] [facility] [address] [id number] [place] [address]- 0189 Apr, 2013 [facility] [place] [facility] [address] [id number] [place] [address]- 2771 Apr, 2013 [facility] [place] [facility] [address] [id number] [place] [address]- 8699 Mar, [facility] [place] [facility] [address] [id number] [place] [address]- 7333 Mar, [facility] [place] [facility] [address] [id number] [place] [address]- 3870 February, [facility] [place] [facility] [address] [id number] [place] [address]- 6459 February, [facility] [place] [facility] [address] [id number] [place] [address]- 8529 Jan, [facility] [place] [facility] [address] [id number] [place] [address]- 9370 Jan, [facility] [place] [facility] [address] [id number] [place] [address]- 0358 Jan, [facility] [place] [facility] [address] [id number] [place] [address]- 6146 Jan, [facility] [place] [facility] [address] [id number] [place] [address]- 2694 Dec, [facility] [place] [facility] [address] [id number] [place] [address]- 1307 Dec, [facility] [place] [facility] [address] [id number] [place] [address]- 1822 Oct, [facility] [place] [facility] [address] [id number] [place] [address]- 3993 Oct, [facility] [place] [facility] [address] [id number] [place] [address]- 5876 Oct, [facility] [place] [facility] [address] [id number] [place] [address]- 0611 Oct, [facility] [place] [facility] [address] [id number] [place] [address]- 2936 Aug, [facility] [place] [facility] [address] [id number] [place] [address]- 4954 Aug, [facility] [place] [facility] [address] [id number] [place] [address]- 3466 Aug, [facility] [place] [facility] [address] [id number] [place] [address]- 1477 Aug, [facility] [place] [facility] [address] [id number] [place] [address] 2546 Jul, [facility] [place] [facility] [address] [id number] [place] [address]- 1686 Jul, [facility] [place] [facility] [address] [id number] [place] [address]- 2546 Jul, [facility] [place] [facility] [address] [id number] [place] [address]- 5726 Jun, [facility] [place] [facility] [address] [id number] [place] [address]- 8065 May, [facility] [place] [facility] [address] [id number] [place] [address]- 9575 Apr, [facility] [place] [facility] [address] [id number] [place] [address]- 0541 Apr, [facility] [place] [facility] [address] [id number] [place] [address]- 3110 Apr, [facility] [place] [facility] [address] [id number] [place] [address]- 3031 Apr, [facility] [place] [facility] [address] [id number] [place] [address]- 2250 Mar, [facility] [place] [facility] [address] [id number] [place] [address]- 2998 Mar, [facility] [place] [facility] [address] [id number] [place] [address]- 7840 Mar, [facility] [place] [facility] [address] [id number] [place] [address]- 2546 Mar, [facility] [place] [facility] [address] [id number] [place] [address]- 0814 February, [facility] [address] [id number] [place] [address]- 7557 February, [facility] [address] [id number] [place] [address]- 9838 February, [facility] [address] [id number] [place] [address]- 2745 February, [facility] [place] [facility] [address] [id number] [place] [address]- 1447 February, [facility] [address] [id number] [place] [address]- 6595 Jan, [facility] [place] [facility] [address] [id number] [place] [address]- 5220 Dec, [facility] [place] [facility] [address] [id number] [place] [address]- 7659 Nov, [facility] [place] [facility] [address] [id number] [place] [address]- 5100 Nov, [facility] [place] [facility] [address] [id number] [place] [address]- 0133 Nov, [facility] [place] [facility] [address] [id number] [place] [address]- 2892 Oct, [facility] [place] [facility] [address] [id number] [place] [address]- 7729 Oct, [facility] [place] [facility] [address] [id number] [place] [address]- 3328 Oct, [facility] [place] [facility] [address] [id number] [place] [address]- 2697 Oct, [facility] [place] [facility] [address] [id number] [place] [address]- 6384 Oct, [facility] [place] [facility] [address] [id number] [place] [address]- 1339 Oct, [facility] [place] [facility] [address] [id number] [place] [address]- 3008 Sep, [facility] [place] [facility] [address] [id number] [place] [address]- 2041 Sep, [facility] [place] [facility] [address] [id number] [place] 3376 Sep, [facility] [place] [facility] [address] [id number] [place] [address]- 4731 Sep, [facility] [place] [facility] [address] [id number] [place] [address] Aug, [facility] [place] [facility] [address] [id number] [place] [address] Aug, [facility] [place] [facility] [address] [id number] [place] [address] Aug, [facility] [place] [facility] [address] [facility] [id number] [place] [address] Aug, [facility] [place] [facility] [address] [id number] [place] [address] Aug, [facility] [place] [facility] [address] [facility] [id number] [place] [address] Aug, [facility] [place] [facility] [address] [facility] [id number] [place] [address] Jul, [facility] [place] [facility] [address] [id number] [place] [address] Jul, [facility] [place] [facility] [address] [id number] [place] [address] Jul, [facility] [place] [facility] [address] [id number] [place] [address] Jul, [facility] [place] [facility] [address] [facility] [id number] [place] [address] Jul, [facility] [place] [facility] [address] [id number] [place] [address] Jul, [facility] [place] [facility] [address] [id number] [place] [address] Jul, [facility] [place] [facility] [address] [id number] [place] [address] Jul, [facility] [place] [facility] [address] [id number] [place] [address] Jul, [facility] [place] [facility] [address] [id number] [place] [address] Jul, [facility] [place] [facility] [address] [id number] [place] [address] Jun, [facility] [place] [facility] [address] [id number] [place] [address] 14 Jun, 2012 [facility] [place] [facility] [address] [id number] [place] [address] Jun, [facility] [place] [facility] [address] [id number] [place] [address] May, [facility] [place] [facility] [address] [id number] [place] [address] May, [facility] [place] [facility] [address] [id number] [place] [address] May, [facility] [place] [facility] [address] [id number] [place] [address] May, [facility] [place] [facility] [address] [id number] [place] [address] Apr, [facility] [place] [facility] [address] [id number] [place] [address] 1992 Apr, [facility] [place] [facility] [address] [id number] [place] [address] Apr, [facility] [place] [facility] [address] [id number] [place] [address] Apr, [facility] [place] [facility] [address] [id number], [place] [address] Mar, [facility] [address] [id number] [place] [address] Mar, [facility] [place] [facility] [address] [id number] [place] [address] Mar, [facility] [place] [facility] [address] [id number] [place] [address] February, [facility] [place] [facility] [address] [id number] [place] [address] February, [facility] [place] [facility] [address] [id number] [place] [address] Jan, [facility] [place] [facility] [address] [id number] [place] [address] Jan, [facility] [address] [facility] [id number] [place] [address] Jan, [facility] [place] [facility] [address] [id number] [place] [address] 29 Dec, 2011 [facility] [place] [facility] [address] [id number] [place] [address] 14 Dec, 2011 [facility] [place] [facility] [address] [id number] [place] [address] 14 Dec, 2011 [facility] [place] [facility] [address] [id number] [place] [address] 08 Dec, 2011 [facility] [place] [facility] [address] [id number] [place] [address] 29 Nov, 2011 [facility] [place] [facility] [address] [id number] [place] [address] Nov, [facility] [place] [facility] [address] [id number] [place] [address] 20 Nov, 2011 [facility] [place] [facility] [address] [facility] [id number] [place] [address] 16 Nov, 2011 [facility] [place] [facility] [address] [id number] [place] [address] Nov, [facility] [address] [id number] [place] [address] Nov, [facility] [address] [id number] [place] [address] Nov, [facility] [address] [id number] [place] [address] Oct, [facility] [address] [id number] [place] [address] Oct, [facility] [address] [id number] [place] [address] Oct, [facility] [address] [id number] [place] [address] Oct, [facility] [address] [id number] [place] [address] Oct, [facility] [address] [id number] [place] [address] Oct, [facility] [address] [id number] [place] [address] Oct, [facility] [address] [id number] [place] [address] Oct, [facility] [address] [id number] [place] [address] Sep, [facility] [place] [facility] [address] [id number] [place] [address] Sep, [facility] [place] [facility] [address] [id number] [place] [address] Sep, [facility] [address] [id number] [place] [address] Sep, [facility] [address] [id number], [place] [address] Aug, [facility] [address] [address] Aug, [facility] [address], [place] [address] Aug, [facility] [address] [address] Jul, [facility] [id number] [place] [address] Jul, [facility] [address], [place] [address] Jul, [facility] [id number] [place] [address] Oct, [facility] [id number] [place] [address] Aug, [facility] [address], [place] [address] Aug, [facility] [id number] [place] [address] Sep, [facility] [address] [address] Sep, [facility] [address], [place] [address] Sep, [facility] [address] [address] Jan, IMMUNIZATIONS No Known Immunizations SOCIAL HISTORY Never Assessed REASON FOR VISIT Med Changes PLAN OF CARE VITAL SIGNS MEDICATIONS Medication Instructions Dosage Frequency Start Date End Date Duration Status Cymbalta 30 MG Orally, Take with 60 mg capsule Once a day 1 capsule 24h Jun, Active Cymbalta 60 MG Orally, Take with a 30 mg Once a day 1 capsule 24h 30 days Active RESULTS No Results PROCEDURES No Known procedures INSTRUCTIONS MEDICATIONS ADMINISTERED No Known Medications MEDICAL [...]
--- OUTSIDE RECORDS SUMMARY | 2018-04-01 14:34 | XMS REPORT ---
Author Author KAITLYNN Weber Organization [facility] Address [address] [place] [address] Care Team Providers Care Verifier Operator Name Role Phone Gus KAITLYNN Unavailable PROBLEMS Type Condition ICD9-CM Code LLK21-VE Code Onset Dates Condition Status SNOMED Code Problem Hypertension I10 Active 30552267 Problem Obesity, unspecified E66.9 Active 028440037 Problem Generalized anxiety disorder F41.1 Active 513740581 Problem Morbid (severe) obesity due to excess calories E66.01 Active 516106522 Problem Body mass index (BMI) of 40.0-44.9 in adult Z68.41 Active 249631024 Problem Hypercholesteremia E78.0 Active 73520231 Problem Family history of hypercholesterolemia Z83.49 Active 951938606 Problem Chronic fatigue R53.82 Active 19079603 Problem Left sided abdominal pain of unknown cause R10.30 Active 507935088 Problem Female hirsutism L68.0 Active 22503086 Problem Hyperlipidemia E78.5 Active 26095661 Problem Sleep apnea in adult G47.33 Active 86838044 Problem Seborrheic keratoses L82.1 Active 112072695 Problem Lumbago M54.5 Active 444955434 ALLERGIES No Information ENCOUNTERS Encounter Location Date Diagnosis [facility] [id number] [place] [address] 63595- 6288 Dec, [facility] [address] [place] [address] 58968- 1485 Nov, Body mass index (BMI) of 40.0-44.9 in adult Z68.41 ; Hypertension I10 and Seasonal allergic rhinitis, unspecified trigger J30.2 [facility] [id number] [address] Nov, Hypertension I10 [facility] [address] [place] [address] 77342- 5733 Nov, Generalized anxiety disorder 300.02 [facility] [id number] [place] [address] 40005- 7600 Nov, [facility] [id number] [place] [address] 23944- 4991 Oct, [facility] [id number] [place] [address] 19962- 3207 Oct, [facility] [id number] [place] [address] 76965- 8603 Oct, Acute chest wall pain R07.89 [facility] [id number] [place] [address] 38985- 7307 Oct, [facility] [id number] [place] [address] 16411- 3177 Sep, Left breast mass N63.20 [facility] [id number] [place] [address] 91507- 9125 Sep, Left breast mass N63.20 [facility] [id number] [place] [address] 85059- 2733 Aug, Hypertension I10 [facility] [id number] [place] [address] 71103- 8007 Aug, Generalized anxiety disorder 300.02 [facility] [id number] [place] [address] 77914- 1485 Jul, Generalized anxiety disorder 300.02 [facility] [id number] [place] [address] 14432- 1415 Jul, Sleep apnea in adult G47.33 [facility] [id number] [place] [address] 41703- 3649 Jul, Hypertension I10 ; Sleep apnea in adult G47.33 ; Body mass index (BMI) of 40.0-44.9 in adult Z68.41 ; Morbid (severe) obesity due to excess calories E66.01 and Female hirsutism L68.0 [facility] [id number] [place] [address] 89922- 4377 Jul, Generalized anxiety disorder 300.02 [facility] [id number] [place] [address] 65550- 3576 Jul, Generalized anxiety disorder 300.02 [facility] [address] 20390 -0164 Jun, Chronic fatigue R53.82 [place] [address] 71640- 0382 Jun, Generalized anxiety disorder F41.1 [facility] [id number] [place] [address] 77394- 6930 May, Generalized anxiety disorder 300.02 [place] [address] 42618- 1894 Apr, Generalized anxiety disorder F41.1 ; Hypertension I10 ; Hyperlipidemia E78.5 ; Female hirsutism L68.0 and Sleep apnea in adult G47.33 [facility] [id number] [place] [address] 20781- 7500 Mar, Hypertension I10 and Generalized anxiety disorder F41.1 [facility] [id number] [place] [address] 67149- 1887 Mar, [facility] [id number] [place] [address] 37643- 5004 February, Hypertension I10 and Generalized anxiety disorder F41.1 [facility] [id number] [place] [address] 54820- 0857 February, Generalized anxiety disorder 300.02 [facility] [id number] [place] [address] 36017 -9664 February, Pelvic pain R10.2 and Painful bladder spasm R30.1 [address] [place] [address]- 7567 Jan, Generalized anxiety disorder 300.02 [facility] [id number] [place] [address] 98426- 9474 Dec, Obesity, unspecified E66.9 ; Generalized anxiety disorder F41.1 and Hypertension I10 [facility] [id number] [place] [address] 89627- 9744 Nov, Generalized anxiety disorder F41.1 ; Hypertension I10 ; Depression F32.9 and Obesity, unspecified E66.9 [facility] [id number] [place] [address] 42133- 4481 Nov, Generalized anxiety disorder 300.02 [facility] [id number] [place] [address] 59083- 3044 Oct, [facility] [id number] [place] [address] 12941- 1456 Sep, History of pneumonia Z87.01 ; Hypokalemia E87.6 ; Hypertension I10 and Encounter for immunization Z23 [facility] [id number] [place] [address] 55220- 9153 Jul, [facility] [id number] [place] [address] 08241- 1498 Apr, Hypertension I10 ; Hypercholesteremia E78.0 ; Obesity, unspecified E66.9 ; Anxiety F41.9 and Lumbago M54.5 [place] [address] [place] [address] 51024- 9108 Apr, Depression F32.9 [place] [id number] [place] [address] 77603- 2276 Mar, Essential (primary) hypertension I10 [facility] [address] [id number] [place] [address] Jan [place] [id number] [place] [address] 92028- 5177 Dec, [facility] [id number] [place] [address] 61414- 7757 Dec, Generalized anxiety disorder F41.1 and Hypertension I10 [place] [id number] [place] [address] 27074- 1898 Dec, [facility] [id number] [place] [address] 54660- 9248 Dec, Abdominal pain R10.9 [facility] [id number] [place] [address] 99487- 4154 Dec, Left sided abdominal pain of unknown cause R10.30 [facility] [id number] [place] [address] 45616- 4803 24 Nov, 2015 Generalized anxiety disorder 300.02 [facility] [id number] [place] [address] 18554- 7495 Nov, Female hirsutism L68.0 ; Hypertension I10 ; Hyperlipidemia E78.5 ; Depression F32.9 and Anxiety F41.9 [place] [id number] [place] [address] 48356- 0617 Oct, [place] [id number] [place] [address] 41209- 0218 Oct, [facility] [id number] [place] [address] 06422- 7544 Oct, [facility] [place] [id number] [place] [address] 99982- 8311 Oct, [facility] [id number] [place] [address] 61682- 6583 Oct, Well woman exam Z01.419 ; Encounter [...] unspecified obesity severity, unspecified obesity type E66.9 [place] [id number] [place] [address] 67173- 5442 Jun, Generalized anxiety disorder 300.02 [facility] [id number] [place] [address] 18894496- 9664 04 Jun, 2015 Chest pain 786.50 ; Hypertension 401.9 ; Hyperlipemia 272.4 and Obesity 278.00 [place] [id number] [place] [address] 11990- 3141 Apr, Generalized anxiety disorder 300.[address] 89977- 9767 Apr, Generalized anxiety disorder 300.02 [id number] [place] [address] 53879- 9394 Apr, [address] 36536- 3764 Apr, [id number] [place] [address] 40449- 0291 Apr, Abdominal pain 789.00 ; Dehydration 276.51 ; Generalized anxiety disorder 300.02 ; Other and unspecified bipolar disorders 296.89 ; Obesity, unspecified 278.00 ; Family history of hypercholesterolemia V18.19 ; Diarrhea 787.91 ; Sleep apnea in adult 327.23 and Essential hypertension 401.9 [id number] [place] [address] 46652- 2734 Mar, Generalized anxiety disorder 300.02 [id number] [place] [address] 37645- 9711 February, [id number] [place] [address] 55973699- 6246 Jan, [id number] [place] [address] 40568- 5251 Jan, [address] [place] [address]- 4801 Oct, [facility] [address] [id number] [place] [address]- 2662 Oct, [facility] [place] [facility] [address] [id number] [place] [address]- 3612 Oct, [facility] [address] [id number] [place] [address]- 5499 Oct, [facility] [place] [facility] [address] [id number] [place] [address]- 1214 Sep, [facility] [place] [facility] [address] [id number] [place] [address]- 8532 Sep, [facility] [place] [facility] [address] [id number] [place] [address]- 4029 Sep, [facility] [place] [facility] [address] [id number] [place] [address]- 7792 Sep, [facility] [place] [facility] [address] [id number] [place] [address]- 7068 Sep, [facility] [place] [facility] [address] [id number] [place] [address]- 3941 Sep, [facility] [place] [facility] [address] [id number] [place] [address]- 8329 Sep, [facility] [place] [facility] [address] [id number] [place] [address]- 9464 Aug, [facility] [place] [facility] [address] [id number] [place] [address]- 8627 Aug, [facility] [place] [facility] [address] [id number] [place] [address]- 3857 Aug, [facility] [place] [facility] [address] [id number] [place] [address]- 7376 Aug, [facility] [place] [facility] [address] [id number] [place]- 8830 Jul, [facility] [place] [facility] [address] [id number] [place] [address]- 3525 Jul, [facility] [place] [facility] [address] [id number] [place] [address]- 5271 Jul, [facility] [place] [facility] [address] [id number] [place] [address]- 5252 Jul, [facility] [place] [facility] [address] [id number] [place] [address]- 4663 Jul, [facility] [place] [facility] [address] [id number] [place] [address]- 4490 Jul, [facility] [place] [facility] [address] [id number] [place] [address]- 9528 Jul, [facility] [place] [facility] [address] [id number] [place] [address]- 4173 Jul, [facility] [place] [facility] [address] [id number] [place] [address]- 1368 16 Jun, 2013 [facility] [place] [facility] [address] [id number] [place] [address]- 9367 16 Jun, 2013 [facility] [place] [facility] [address] [id number], [place] [address]- 2778 15 Jun, 2013 [facility] [place] [facility] [address] [id number], [place] [address]- 7872 15 Jun, 2013 [facility] [place] [facility] [address] [id number], [place] [address]- 9853 09 Sep, 2013 [facility] [place] [facility] [address] [id number], [place] [address]- 7110 09 Sep, 2013 [facility] [place] [facility] [address] [id number], [place] [address]- 8214 04 Sep, 2013 [facility] [place] [facility] [address] [id number], [place] [address]- 5178 04 Sep, 2013 [facility] [place] [facility] [address] [id number], [place] [address]- 0560 Jun, 2013 [facility] [place] [facility] [address] [id number] [place] [address]- 7228 Jun, 2013 [facility] [place] [facility] [address] [id number] [place] [address]- 3586 Jun, 2013 [facility] [place] [facility] [address] [id number] [place] [address]- 0042 Jun, 2013 [facility] [place] [facility] [address] [id number] [place] [address]- 6475 Jun, 2013 [facility] [place] [facility] [address] [id number] [place] [address]- 2805 Jun, 2013 [facility] [place] [facility] [address] [id number] [place] [address]- 6960 Jun, 2013 [facility] [place] [facility] [address] [id number] [place] [address]- 9617 Jun, 2013 [facility] [place] [facility] [address] [id number] [place] [address]- 2294 May, [facility] [place] [facility] [address] [id number] [place] [address]- 2541 May, [facility] [place] [facility] [address] [id number] [place] [address]- 0024 Apr, [facility] [place] [facility] [address] [id number] [place] [address]- 6666 Apr, [facility] [place] [facility] [address] [id number] [place] [address]- 7048 Apr, [facility] [place] [facility] [address] [id number] [place] [address]- 4977 Apr, [facility] [place] [facility] [address] [id number] [place] [address]- 3497 Apr, [facility] [place] [facility] [address] [id number] [place] [address]- 7986 Apr, [facility] [place] [facility] [address] [id number] [place] [address]- 5520 16 Apr, 2013 [facility] [place] [facility] [address] [id number] [place] [address]- 4180 Apr, 2013 [facility] [place] [facility] [address] [id number] [place] [address]- 9566 Apr, 2013 [facility] [place] [facility] [address] [id number] [place] [address]- 6618 Apr, 2013 [facility] [place] [facility] [address] [id number] [place] [address]- 8152 Apr, 2013 [facility] [place] [facility] [address] [id number] [place] [address]- 4790 Apr, 2013 [facility] [place] [facility] [address] [id number] [place] [address]- 5353 Apr, 2013 [facility] [place] [facility] [address] [id number] [place] [address]- 1992 Apr, 2013 [facility] [place] [facility] [address] [id number] [place] [address]- 8375 Apr, 2013 [facility] [place] [facility] [address] [id number] [place] [address]- 7912 Apr, 2013 [facility] [place] [facility] [address] [id number] [place] [address]- 5047 Apr, 2013 [facility] [place] [facility] [address] [id number] [place] [address]- 9163 Apr, 2013 [facility] [place] [facility] [address] [id number] [place] [address]- 0735 Apr, 2013 [facility] [place] [facility] [address] [id number] [place] [address]- 5704 Apr, 2013 [facility] [place] [facility] [address] [id number] [place] [address]- 0184 Mar, [facility] [place] [facility] [address] [id number] [place] [address]- 7589 Mar, [facility] [place] [facility] [address] [id number] [place] [address]- 7511 February, [facility] [place] [facility] [address] [id number] [place] [address]- 1845 February, [facility] [place] [facility] [address] [id number] [place] [address]- 1008 Jan, [facility] [place] [facility] [address] [id number] [place] [address]- 2172 Jan, [facility] [place] [facility] [address] [id number] [place] [address]- 2589 Jan, [facility] [place] [facility] [address] [id number] [place] [address]- 0259 Jan, [facility] [place] [facility] [address] [id number] [place] [address]- 2238 Dec, [facility] [place] [facility] [address] [id number] [place] [address]- 6483 Dec, [facility] [place] [facility] [address] [id number] [place] [address]- 2146 Oct, [facility] [place] [facility] [address] [id number] [place] [address]- 8881 Oct, [facility] [place] [facility] [address] [id number] [place] [address]- 0220 Oct, [facility] [place] [facility] [address] [id number] [place] [address]- 4968 Oct, [facility] [place] [facility] [address] [id number] [place] [address]- 6552 Aug, [facility] [place] [facility] [address] [id number] [place] [address]- 8186 Aug, [facility] [place] [facility] [address] [id number] [place] [address]- 9270 Aug, [facility] [place] [facility] [address] [id number] [place] [address]- 2953 Aug, [facility] [place] [facility] [address] [id number] [place] [address]- 9883 Jul, [facility] [place] [facility] [address] [id number] [place] [address]- 4612 Jul, [facility] [place] [facility] [address] [id number] [place] [address]- 3476 Jul, [facility] [place] [facility] [address] [id number] [place] [address]- 7770 Jun, [facility] [place] [facility] [address] [id number] [place] [address]- 6366 May, [facility] [place] [facility] [address] [id number] [place] [address]- 6275 Apr, [facility] [place] [facility] [address] [id number] [place] [address]- 6097 Apr, [facility] [place] [facility] [address] [id number] [place] [address]- 4760 Apr, [facility] [place] [facility] [address] [id number] [place] [address]- 9597 Apr, [facility] [place] [facility] [address] [id number] [place] [address]- 8356 Mar, [facility] [place] [facility] [address] [id number] [place] [address]- 5125 Mar, [facility] [place] [facility] [address] [id number] [place] [address]- 3267 Mar, [facility] [place] [facility] [address] [id number] [place] [address]- 6151 Mar, [facility] [place] [facility] [address] [id number] [place] [address]- 0572 February, [facility] [place] [facility] [address] [id number] [place] [address]- 0876 February, [facility] [place] [facility] [address] [id number] [place] [address]- 4263 February, [facility] [address] [id number] [place] [address]- 8609 February, [facility] [address] [id number] [place] [address]- 0671 February, [facility] [address] [id number] [place] [address]- 7011 Jan, [facility] [address] [id number] [place] [address]- 5894 Dec, [facility] [address] [id number] [place] [address]- 9576 Nov, [facility] [address] [id number] [place] [address]- 8376 Nov, [facility] [address] [id number] [place] [address]- 4131 Nov, [facility] [address] [id number] [place] [address]- 8329 Oct, [facility] [address] [id number] [place] [address]- 9863 Oct, [facility] [address] [id number] [place] [address]- 3461 Oct, [facility] [address] [id number], [place] [address]- 7335 Oct, [facility] [place] [facility] [address] [id number] [place] [address]- 8251 Oct, [facility] [place] [facility] [address] [id number] [place] [address]- 2958 Oct, [facility] [place] [facility] [address] [id number] [place] [address] Sep, [facility] [address] [id number], [place] [address] Sep, [facility] [place] [facility] [address] [id number] [place] [address] Sep, [facility] [place] [facility] [address] [facility] [id number] [place] [address] Sep, [facility] [place] [facility] [address] [facility] [id number] [place] [address] Aug, [facility] [place] [facility] [address] [id number] [place] [address] Aug, [facility] [place] [facility] [address] [facility] [id number] [place] [address] Aug, [facility] [place] [facility] [address] [facility] [id number] [place] [address] Aug, [facility] [place] [facility] [id number] [place] [address] Aug, [facility] [place] [facility] [address] [facility] [id number] [place] [address] Aug, [facility] [place] [facility] [address] [id number], [place] [address] Jul, [facility] [place] [facility] [address] [facility] [id number] [place] [address] Jul, [facility] [place] [facility] [address] [facility] [id number], [place] [address] Jul, [facility] [place] [facility] [address] [facility] [id number], [place] [address] Jul, [facility] [place] [facility] [address] [facility] [id number], [place] [address] Jul, [facility] [place] [facility] [address] [facility] [id number], [place] [address] Jul, [facility] [place] [facility] [address] [facility] [id number], [place] [address] Jul, [facility] [place] [facility] [address] [id number] [place] [address] 25[address] Jul, [facility] [place] [facility] [address] [id number] [place] [address]- [address] Jul, [facility] [place] [facility] [address] [id number] [place] [address]- [address] Jul, [facility] [place] [facility] [address] [id number] [place] [address] Jun, [facility] [place] [facility] [address] [id number] [place] [address] Jun, [facility] [place] [facility] [address] [id number] [place] [address]- [address]267 Jun, [facility] [place] [facility] [address] [id number] [place] [address] May, [facility] [place] [facility] [address] [id number] [place] [address] May, [facility] [place] [facility] [address] [id number] [place] [address] 9232 May, [facility] [place] [facility] [address] [id number] [place] [address]- 3437 May, [facility] [place] [facility] [address] [id number] [place] [address] 43[address] Apr, [facility] [place] [facility] [address] [id number] [place] [address] Apr, [facility] [place] [facility] [address] [id number] [place] [address] 7668 Apr, [facility] [place] [facility] [address] [id number] [place] [address]- 7176 Apr, [facility] [place] [facility] [address] [id number] [place] [address] 2546 Mar, [facility] [place] [facility] [address] [id number] [place] [address]- [address]47 13 Mar, 2012 [facility] [place] [facility] [address] [id number] [place] [address]- [address]367 Mar, [facility] [place] [facility] [address] [id number] [place] [address]- [address]181 February, [facility] [place] [facility] [address] [id number] [place] [address] February, [facility] [place] [facility] [address] [id number] [place] [address] Jan, [facility] [place] [facility] [address] [id number] [place] [address] Jan, [facility] [place] [facility] [address] [id number] [place] [address]- 1265 Jan, [facility] [place] [facility] [address] [id number] [place] [address]- [address]859 Dec, [facility] [place] [facility] [address] [id number] [place] [address]- [address]378 Dec, [facility] [place] [facility] [address] [id number] [place] [address]- [address]99 14 Dec, 2011 [facility] [place] [facility] [address] [id number] [place] [address] Dec, [facility] [place] [facility] [address] [id number] [place] [address]- [address] Nov, [facility] [place] [facility] [address] [id number] [place] [address]- 6709 Nov, [facility] [place] [facility] [address] [id number] [place] [address]- 7970 Nov, [facility] [place] [facility] [address] [id number] [place] [address]- [address] 16 Nov, 2011 [facility] [place] [facility] [address] [id number] [place] [address]- [address]80 09 Nov, 2011 [facility] [place] [facility] [address] [id number] [place] [address]- [address] 06 Nov, 2011 [facility] [address] [id number] [place] [address]996 Nov, [facility] [address] [id number] [place] [address] Oct, [facility] [address] [id number] [place] [address] Oct, [facility] [address] [id number] [place] [address] Oct, [facility] [address] [id number] [place] [address] Oct, [facility] [address] [id number] [place] [address] Oct, [facility] [address] [id number] [place] [address] Oct, [facility] [address] [id number] [place] [address] Oct, [facility] [address] [id number] [place] [address] Oct, [facility] [address] [id number] [place] [address] Sep, [facility] [address] [id number] [place] [address] Sep, [facility] [address] [id number] [place] [address] Sep, [facility] [place] [facility] [address] [id number] [place] [address] Sep, [facility] [address] [id number] [place] [address] Aug, [facility] [address] [id number] [place] [address] Aug, [facility] [address] [facility] [id number], [place] [address] Aug, [facility] [address] [facility] [id number], [place] [address] Jul, [facility] [address] [facility] [id number], [place] [address] Jul, [facility] [address] [facility] [id number], [place] [address] Jul, [facility] [address] [facility] [id number], [place] [address] Oct, [facility] [address] [facility] [id number] [place] [address] Aug, [facility] [id number] [address] Aug, [facility] [id number], [place] [address] Sep, [facility] [address] [facility] [id number], [place] [address] Sep, [facility] [id number], [place] [address] Sep, [facility] [address] [id number], [place] [address] Jan, IMMUNIZATIONS No Known Immunizations SOCIAL HISTORY Never Assessed REASON FOR VISIT Controlled Med Refill PLAN OF CARE VITAL SIGNS MEDICATIONS Medication Instructions Dosage Frequency Start Date End Date Duration Status Triamterene-HCTZ 50-25 MG Orally Once a day [...]
--- OUTSIDE RECORDS SUMMARY | 2018-04-01 14:35 | XMS REPORT ---
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 Role Phone virgenSILVIA KAITLYNN Unavailable PROBLEMS Type Condition ICD9-CM Code EIP50-NS Code Onset Dates Condition Status SNOMED Code Problem Hypertension I10 Active 21042370 Problem Obesity, unspecified E66.9 Active 376927402 Problem Generalized anxiety disorder F41.1 Active 352012037 Problem Morbid (severe) obesity due to excess calories E66.01 Active 867442207 Problem Body mass index (BMI) of 40.0-44.9 in adult Z68.41 Active 883575421 Problem Hypercholesteremia E78.0 Active 77515674 Problem Family history of hypercholesterolemia Z83.49 Active 271687889 Problem Chronic fatigue R53.82 Active 56060312 Problem Left sided abdominal pain of unknown cause R10.30 Active 689910097 Problem Female hirsutism L68.0 Active 80419815 Problem Hyperlipidemia E78.5 Active 71110473 Problem Sleep apnea in adult G47.33 Active 47421418 Problem Seborrheic keratoses L82.1 Active 762382378 Problem Lumbago M54.5 Active 276438764 ALLERGIES Substance Reaction Event Type Date Status Amoxicillin Unknown Drug Allergy Apr, Active ENCOUNTERS Encounter Location Date Diagnosis [facility] [id number] [address] Dec, [facility] [id number] [place] [address] 00744- 9478 Nov, 2018 Body mass index (BMI) of 40.0-44.9 in adult Z68.41 ; Hypertension I10 and Seasonal allergic rhinitis, unspecified trigger J30.2 [facility] [address] [address] Nov, Hypertension I10 [facility] [id number] [place] [address] 41215- 3680 Nov, Generalized anxiety disorder 300.02 [facility] [id number] [place] [address] 37578- 7343 Nov, [facility] [id number] [place] [address] 32431- 1159 Oct, [facility] [id number] [place] [address] 01436- 5299 Oct, [facility] [id number] [place] [address] 03543- 9130 Oct, Acute chest wall pain R07.89 [facility] [id number] [place] [address] 89175- 4985 Oct, [facility] [id number] [place] [address] 03434- 9903 Sep, Left breast mass N63.20 [facility] [id number] [place] [address] 82857- 4372 Sep, Left breast mass N63.20 [facility] [id number] [place] [address] 31457- 9054 Aug, Hypertension I10 [facility] [id number] [place] [address] 10022- 8808 Aug, Generalized anxiety disorder 300.02 [facility] [id number] [place] [address] 34771- 5822 Jul, Generalized anxiety disorder 300.02 [facility] [id number] [place] [address] 87853- 3838 Jul, Sleep apnea in adult G47.33 [facility] [id number] [place] [address] 07146- 5646 Jul, Hypertension I10 ; Sleep apnea in adult G47.33 ; Body mass index (BMI) of 40.0-44.9 in adult Z68.41 ; Morbid (severe) obesity due to excess calories E66.01 and Female hirsutism L68.0 [id number] [place] [address] 10591- 8295 Jul, Generalized anxiety disorder 300.02 [id number] [place] [address] 33414- 0518 Jul, Generalized anxiety disorder 300.02 [facility] [id number] [place] [address] 52086 -9396 Jun, Chronic fatigue R53.[address] 06592- 8728 Jun, Generalized anxiety disorder F41.1 [id number] [place] [address] 35939- 1512 May, Generalized anxiety disorder 300.02 [address] 63919- 0008 Apr, Generalized anxiety disorder F41.1 ; Hypertension I10 ; Hyperlipidemia E78.5 ; Female hirsutism L68.0 and Sleep apnea in adult G47.33 [id number] [place] [address] 16469- 5860 Mar, Hypertension I10 and Generalized anxiety disorder F41.1 [id number] [place] [address] 46505- 4075 Mar, [address] 48189- 0207 February, Hypertension I10 and Generalized anxiety disorder F41.1 [address] 86428- 3702 February, Generalized anxiety disorder 300.02 [facility] [id number] [place] [address] 03238 -9453 February, Pelvic pain R10.2 and Painful bladder spasm R30.1 [place] [place] [id number] [place] [address] 71939- 7094 Jan, Generalized anxiety disorder 300.02 [address] 51877- 9862 Dec, Obesity, unspecified E66.9 ; Generalized anxiety disorder F41.1 and Hypertension I10 [address] 72463- 5243 Nov, Generalized anxiety disorder F41.1 ; Hypertension I10 ; Depression F32.9 and Obesity, unspecified E66.9 [address] 07130- 4477 07 Nov, 2016 Generalized anxiety disorder 300.02 [address] 06541- 0967 Oct, [address] 16951- 7339 Sep, History of pneumonia Z87.01 ; Hypokalemia E87.6 ; Hypertension I10 and Encounter for immunization Z23 [address] 17583- 1628 Jul, [address] 56826- 8655 Apr, Hypertension I10 ; Hypercholesteremia E78.0 ; Obesity, unspecified E66.9 ; Anxiety F41.9 and Lumbago M54.5 [address] [place] [id number] [place] [address] 55007- 0863 Apr, Depression F32.9 [address] 01435- 2401 Mar, Essential (primary) hypertension I10 [facility] [address] [id number] [place] [address] Jan [address] 25763- 6596 Dec, [facility] [id number] [place] [address] 10033- 7510 Dec, Generalized anxiety disorder F41.1 and Hypertension I10 [facility] [id number] [place] [address] 54535- 1959 Dec, [facility] [id number] [place] [address] 03970- 0422 Dec, Abdominal pain R10.9 [facility] [id number] [place] [address] 13801- 0431 Dec, Left sided abdominal pain of unknown cause R10.30 [address] [id number] [place] [address] 68023- 4048 24 Nov, 2015 Generalized anxiety disorder 300.02 [address] [id number] [place] [address] 53098- 1896 Nov, Female hirsutism L68.0 ; Hypertension I10 ; Hyperlipidemia E78.5 ; Depression F32.9 and Anxiety F41.9 [address] [id number] [place] [address] 45516- 7205 Oct, [address] [id number] [place] [address] 52870- 4487 Oct, [id number] [place] [address] 92693- 6236 Oct, [facility] [id number] [place] [address] 18260- 8192 Oct, [place] [id number] [place] [address] 71109- 0539 Oct, Well woman exam Z01.419 ; Encounter [...] unspecified obesity severity, unspecified obesity type E66.9 [id number] [place] [address] 43516- 5520 Jun, Generalized anxiety disorder 300.02 [id number] [place] [address] 43925- 8718 Jun, Chest pain 786.50 ; Hypertension 401.9 ; Hyperlipemia 272.4 and Obesity 278.[address] 94397- 7938 Apr, Generalized anxiety disorder 300.[address] 16343- 1302 Apr, Generalized anxiety disorder 300.[address] 61122- 7612 Apr, [id number] [place] [address] 46475- 9095 Apr, [id number] [place] [address] 01232- 9302 Apr, Abdominal pain 789.00 ; Dehydration 276.51 ; Generalized anxiety disorder 300.02 ; Other and unspecified bipolar disorders 296.89 ; Obesity, unspecified 278.00 ; Family history of hypercholesterolemia V18.19 ; Diarrhea 787.91 ; Sleep apnea in adult 327.23 and Essential hypertension 401.9 [id number] [place] [address] 78269- 9913 Mar, Generalized anxiety disorder 300.[address] 66543- 2882 February, [id number] [place] [address] 75272- 4942 Jan, [address] 86493- 7586 Jan, [facility] [place] [facility] [address] [id number] [place] [address]- 2261 Oct, [facility] [place] [facility] [address] [id number] [place] [address]- 2850 Oct, [facility] [place] [facility] [address] [id number] [place] [address]- 8569 Oct, [facility] [place] [facility] [address] [id number] [place] [address]- 5584 Oct, [facility] [place] [facility] [address] [id number] [place] [address]- 8461 Sep, [facility] [place] [facility] [address] [id number] [place] [address]- 8100 Sep, [facility] [place] [facility] [address] [id number] [place] [address]- 3690 Sep, [facility] [place] [facility] [address] [id number] [place] [address]- 5361 Sep, [facility] [place] [facility] [address] [id number] [place] [address]- 8475 Sep, [facility] [place] [facility] [address] [id number] [place] [address]- 7579 Sep, [facility] [place] [facility] [address] [id number] [place] [address]- 8730 Sep, [facility] [place] [facility] [address] [id number] [place] [address]- 3201 Aug, [facility] [place] [facility] [address] [id number] [place] [address]- 3247 Aug, [facility] [place] [facility] [address] [id number] [place] [address]- 6067 Aug, [facility] [place] [facility] [address] [id number] [place] [address]- 9913 Aug, [facility] [place] [facility] [address] [id number] [place] [address]- 6170 30 Jul, 2013 [facility] [place] [facility] [address] [id number] [place] [address]- 6958 30 Jul, 2013 [facility] [place] [facility] [address] [id number] [place] [address]- 0373 30 Jul, 2014 [facility] [place] [facility] [address] [id number] [place] [address]- 3193 30 Jul, 2014 [facility] [place] [facility] [address] [id number] [place] [address]- 4132 Jul, [facility] [place] [facility] [address] [id number] [place] [address]- 6186 14 Jul, 2014 [facility] [place] [facility] [address] [id number] [place] [address]- 7445 Jul, [facility] [place] [facility] [address] [id number] [place] [address]- 1781 02 Jul, 2014 [facility] [place] [facility] [address] [id number] [place] [address]- 2540 16 Jun, 2013 [facility] [place] [facility] [address] [id number] [place] [address]- 1326 16 Jun, 2013 [facility] [place] [facility] [address] [id number] [place] [address]- 4987 15 Jun, 2013 [facility] [place] [facility] [address] [id number] [place] [address]- 1696 15 Sep, 2013 [facility] [place] [facility] [address] [id number] [place] [address]- 7099 09 Sep, 2013 [facility] [place] [facility] [address] [id number] [place] [address]- 7168 09 Sep, 2013 [facility] [place] [facility] [address] [id number] [place] [address]- 2126 04 Sep, 2013 [facility] [place] [facility] [address] [id number] [place] [address]- 7512 04 Sep, 2013 [facility] [place] [facility] [address] [id number] [place] [address]- 8128 Jun, 2013 [facility] [place] [facility] [address] [id number] [place] [address]- 6886 Jun, 2013 [facility] [place] [facility] [address] [id number] [place] [address]- 5709 Jun, 2013 [facility] [place] [facility] [address] [id number] [place] [address]- 1887 Jun, 2013 [facility] [place] [facility] [address] [id number] [place] [address]- 0782 Jun, 2013 [facility] [place] [facility] [address] [id number] [place] [address]- 1917 Jun, 2013 [facility] [place] [facility] [address] [id number] [place] [address]- 4135 Jun, 2013 [facility] [place] [facility] [address] [id number] [place] [address]- 8874 Jun, 2013 [facility] [place] [facility] [address] [id number] [place] [address]- 0580 May, [facility] [place] [facility] [address] [id number] [place] [address]- 4729 May, [facility] [place] [facility] [address] [id number] [place] [address]- 6159 Apr, [facility] [place] [facility] [address] [id number] [place] [address]- 3104 Apr, [facility] [place] [facility] [address] [id number] [place] [address]- 4827 Apr, [facility] [place] [facility] [address] [id number] [place] [address]- 7937 Apr, [facility] [place] [facility] [address] [id number] [place] [address]- 8821 Apr, [facility] [place] [facility] [address] [id number] [place] [address]- 7174 Apr, 2013 [facility] [place] [facility] [address] [id number] [place] [address]- 3326 16 Apr, 2013 [facility] [place] [facility] [address] [id number] [place] 1932 16 Apr, 2013 [facility] [place] [facility] [address] [id number] [place] [address]- 7963 Apr, 2013 [facility] [place] [facility] [address] [id number] [place] [address]- 6830 Apr, 2013 [facility] [place] [facility] [address] [id number] [place] [address]- 4484 Apr, 2013 [facility] [place] [facility] [address] [id number] [place] [address]- 4671 Apr, 2013 [facility] [place] [facility] [address] [id number] [place] [address]- 2924 Apr, 2013 [facility] [place] [facility] [address] [id number] [place] [address]- 8123 Apr, 2013 [facility] [place] [facility] [address] [id number] [place] [address]- 0430 Apr, 2013 [facility] [place] [facility] [address] [id number] [place] [address]- 1019 Apr, 2013 [facility] [place] [facility] [address] [id number] [place] [address]- 6144 Apr, 2013 [facility] [place] [facility] [address] [id number] [place] [address]- 5315 Apr, 2013 [facility] [place] [facility] [address] [id number] [place] [address]- 7787 Apr, 2013 [facility] [place] [facility] [address] [id number] [place] [address]- 8458 Apr, 2013 [facility] [place] [facility] [address] [id number] [place] [address]- 4688 Mar, 2013 [facility] [place] [facility] [address] [id number] [place] [address]- 6507 Mar, [facility] [place] [facility] [address] [id number] [place] [address]- 7893 February, [facility] [place] [facility] [address] [id number] [place] [address]- 9021 February, [facility] [place] [facility] [address] [id number] [place] [address]- 4191 Jan, [facility] [place] [facility] [address] [id number] [place] [address]- 6900 Jan, [facility] [place] [facility] [address] [id number] [place] [address]- 7282 Jan, [facility] [place] [facility] [address] [id number] [place] [address]- 2584 Jan, [facility] [place] [facility] [address] [id number] [place] [address]- 5853 Dec, [facility] [place] [facility] [address] [id number] [place] [address]- 1092 Dec, [facility] [place] [facility] [address] [id number] [place] [address]- 7584 Oct, [facility] [place] [facility] [address] [id number] [place] [address]- 5936 Oct, [facility] [place] [facility] [address] [id number] [place] [address]- 9696 Oct, [facility] [place] [facility] [address] [id number] [place] [address]- 5859 Oct, [facility] [place] [facility] [address] [id number] [place] [address]- 2474 Aug, [facility] [place] [facility] [address] [id number] [place] [address]- 1775 Aug, [facility] [place] [facility] [address] [id number] [place] [address]- 9859 Aug, [facility] [place] [facility] [address] [id number] [place] [address]- 6175 Aug, [facility] [place] [facility] [address] [id number] [place] [address]- 2136 Jul, [facility] [place] [facility] [address] [id number] [place] [address]- 8454 Jul, [facility] [place] [facility] [address] [id number] [place] [address] 2548 Jul, [facility] [place] [facility] [address] [id number] [place] [address]- 6915 Jun, [facility] [place] [facility] [address] [id number] [place] [address]- 6096 May, [facility] [place] [facility] [address] [id number] [place] [address]- 0637 Apr, [facility] [place] [facility] [address] [id number] [place] [address]- 6727 Apr, [facility] [place] [facility] [address] [id number] [place] [address]- 4494 Apr, [facility] [place] [facility] [address] [id number] [place] [address]- 5176 Apr, [facility] [place] [facility] [address] [id number] [place] [address]- 9617 Mar, [facility] [place] [facility] [address] [id number] [place] [address]- 8798 Mar, [facility] [place] [facility] [address] [id number] [place] [address]- 6230 Mar, [facility] [place] [facility] [address] [id number] [place] [address]- 5586 Mar, [facility] [place] [facility] [address] [id number] [place] [address]- 4697 February, [facility] [place] [facility] [address] [id number] [place] [address]- 1724 February, [facility] [address] [id number] [place] [address]- 9357 February, [facility] [address] [id number] [place] [address]- 3604 February, [facility] [address] [id number] [place] [address]- 1746 February, [facility] [address] [id number] [place] [address]- 6422 Jan, [facility] [address] [id number] [place] [address]- 3709 Dec, [facility] [address] [id number] [place] [address]- 0685 Nov, [facility] [address] [id number] [place] [address]- 1472 Nov, [facility] [address] [id number] [place] [address]- 2430 Nov, [facility] [address] [id number] [place] [address]- 1359 Oct, [facility] [address] [id number] [place] [address]- 5983 Oct, [facility] [address] [id number] [place] [address]- 8482 Oct, [facility] [address] [id number] [place] [address]- 8384 Oct, [facility] [place] [facility] [address] [id number] [place] [address]- 6882 Oct, [facility] [place] [facility] [address] [id number] [place] [address]- 7868 Oct, [facility] [address] [id number] [place] [address]- 4422 Sep, [facility] [place] [facility] [address] [id number] [place] [address]- 9929 Sep, [facility] [place] [facility] [address] [id number] [place] [address] Sep, [facility] [place] [facility] [address] [id number] [place] [address] Sep, [facility] [place] [facility] [address] [id number] [place] [address] Aug, [facility] [place] [facility] [address] [id number] [place] [address] Aug, [facility] [place] [facility] [address] [id number] [place] [address] Aug, [facility] [place] [facility] [address] [id number] [place] [address] Aug, [facility] [place] [facility] [address] [id number] [place] [address] Aug, [facility] [place] [facility] [address] [id number] [place] [address] Aug, [facility] [place] [facility] [address] [id number] [place] [address] Jul, [facility] [place] [facility] [address] [id number] [place] [address] Jul, [facility] [place] [facility] [address] [id number] [place] [address] Jul, [facility] [place] [facility] [address] [id number] [place] [address] Jul, [facility] [place] [facility] [address] [id number] [place] [address] Jul, [facility] [place] [facility] [address] [id number] [place] [address] Jul, [facility] [place] [facility] [address] [id number] [place] [address] Jul, [facility] [place] [facility] [address] [id number] [place] [address] Jul, [facility] [place] [facility] [address] [id number] [place] [address] Jul, [facility] [place] [facility] [address] [id number] [place] [address] Jul, [facility] [place] [facility] [address] [id number] [place] [address] Jun, [facility] [place] [facility] [address] [id number] [place] [address] Jun, [facility] [place] [facility] [address] [id number] [place] [address] Jun, [facility] [place] [facility] [address] [id number] [place] [address] May, [facility] [place] [facility] [address] [id number] [place] [address] May, [facility] [place] [facility] [address] [id number] [place] [address] May, [facility] [place] [facility] [address] [id number] [place] [address] May, [facility] [place] [facility] [address] [id number] [place] [address] Apr, [facility] [place] [facility] [address] [id number] [place] [address] Apr, [facility] [place] [facility] [address] [id number] [place] [address] Apr, [facility] [place] [facility] [address] [id number] [place] [address] Apr, [facility] [place] [facility] [address] [id number] [place] [address] Mar, [facility] [place] [facility] [address] [id number] [place] [address]- 2010 13 Mar, 2012 [facility] [address] [id number] [place] [address] Mar, [facility] [place] [facility] [address] [id number] [place] [address] February, [facility] [place] [facility] [address] [id number] [place] [address] February, [facility] [place] [facility] [address] [id number] [place] [address] Jan, [facility] [place] [facility] [address] [id number] [place] [address] Jan, [facility] [place] [facility] [address] [id number] [place] [address] Jan, [facility] [place] [facility] [address] [id number] [place] [address] 29 Dec, 2011 [facility] [place] [facility] [address] [id number] [place] [address] 14 Dec, 2011 [facility] [place] [facility] [address] [id number] [place] [address] 14 Dec, 2011 [facility] [place] [facility] [address] [facility] [id number] [place] [address] Dec, [facility] [place] [facility] [address] [id number] [place] [address] 29 Nov, 2011 [facility] [place] [facility] [address] [id number] [place] [address] Nov, [facility] [place] [facility] [address] [id number] [place] [address] 20 Nov, 2011 [facility] [place] [facility] [address] [facility] [id number] [place] [address] 16 Nov, 2011 [facility] [place] [facility] [address] [facility] [id number] [place] [address]- 1736 Nov, [facility] [address] [id number] [place] [address] Nov, [facility] [place] [facility] [address] [id number] [place] [address] Nov, [facility] [place] [facility] [address] [id number] [place] [address] Oct, [facility] [place] [facility] [address] [id number] [place] [address] Oct, [facility] [place] [facility] [address] [id number] [place] [address] Oct, [facility] [place] [facility] [address] [id number] [place] [address] Oct, [facility] [place] [facility] [address] [id number] [place] [address] Oct, [facility] [place] [facility] [address] [id number] [place] [address] Oct, [facility] [place] [facility] [address] [id number] [place] [address] Oct, [facility] [place] [facility] [address] [id number] [place] [address] Oct, [facility] [place] [facility] [address] [id number] [place] [address] Sep, [facility] [place] [facility] [address] [id number] [place] [address] Sep, [facility] [place] [facility] [address] [id number] [place] [address] Sep, [facility] [place] [facility] [address] [id number] [place] [address] Sep, [facility] [place] [facility] [address] [id number] [place] [address] Aug, [facility] [place] [facility] [address] [id number] [address] 02 Aug, 2011 [facility] [id number] [address] Aug, [facility] [id number] [address] Jul, [facility] [id number] [address] Jul, [facility] [id number] [address] Jul, [facility] [id number] [place] [address] Oct, [facility] [id number] [place] [address] Aug, [facility] [id number] [place] [address] Aug, [facility] [id number] [address] Sep, [facility] [id number] [address] Sep, [facility] [id number] [address] Sep, [facility] [id number] [address] Jan, IMMUNIZATIONS No Known Immunizations SOCIAL HISTORY Never Assessed REASON FOR VISIT Blood Pressure. Med refills needed. Pt would like normal labs done today as she is fasting. Family hx of liver cancer. LDL chol calc was elevated last summer. JOEL Michael PLAN OF CARE Activity Details Follow Up 3 Months Reason:htn VITAL SIGNS Height 64 in 2017-05-10 Weight 248 lbs 2017-05-10 Temperature 97.8 degrees Fahrenheit 2017-05-10 Heart Rate 68 bpm 2017-05-10 Respiratory Rate 20 2017-05-10 BMI 42.56 kg/m2 2017-05-10 Blood pressure systolic 112 mmHg 2017-05-10 Blood pressure diastolic 80 mmHg 2017-05-10 MEDICATIONS Medication Instructions Dosage Frequency Start Date End Date Duration Status Super B Complex Active Nadolol 40 mg Orally Once a day 1 tablet 24h 90 days Active Lorazepam 0.5 MG Orally 2 times a day 1 tablet as needed 12h 15 Dec, 2016 Active Probiotic Active Cymbalta 60 mg Orally Once a day 1 capsule 24h 30 days Active Triamterene-HCTZ 50-25 MG Orally Once a day TAKE ONE CAPSULE BY MOUTH ONCE DAILY IN THE MORNING 24h 30 days Active BusPIRone HCl 15 mg Orally Once a day TAKE ONE-HALF TABLET BY MOUTH TWICE DAILY 24h 180 days Active RESULTS No Results PROCEDURES Procedure Date Ordered Result Body Site COMPLETE CBC W/AUTO DIFF WBC May 10, 2017 COMPREHEN METABOLIC PANEL May 10, 2017 LIPID PANEL May 10, 2017 VENIPUNCT, ROUTINE* May 10, 2017 INSTRUCTIONS MEDICATIONS ADMINISTERED No Known [...]
--- OUTSIDE RECORDS SUMMARY | 2018-04-01 14:35 | XMS REPORT ---
Author Author KAITLYNN SALDANA [facility] eClinicalWorks Address Unknown Phone Unavailable Care Team Providers Care Child Development Consultant Name Role Phone KAITLYNN SALDANA CP Unavailable [...] E78.5 Active Problem Hypertension I10 Active Medications No Known Medications Results No Known Results Summary Purpose eClinicalWorks Submission
--- OUTSIDE RECORDS SUMMARY | 2018-04-01 14:35 | XMS REPORT ---
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 Role Phone MIGUELITO LEWIS CP Unavailable Allergies, Adverse Reactions, Alerts Substance Reaction Event Type Amoxicillin Info Not Available Drug Allergy Problems Problem Type Condition ICD-9 Code Onset Dates Condition Status Assessment Obesity 278.00 Active Assessment Hyperlipemia 272.4 Active Assessment Hypertension 401.9 Active Assessment Chest pain 786.50 Active Problem Panic disorder without agoraphobia 300.01 [...] Active Problem Obesity, unspecified 278.00 Active Medications Medication Code System Code Instructions Start Date End Date Status Dosage Cymbalta NDC [address]-09 30 MG Orally Twice a day 1 capsule buspirone NDC 0 7.5 mg Nov 12, 2014 1 tablet by Oral route 2 times per day Lorazepam [facility] [address]-36 1 mg Nov 12, 2014 1 Tablet by Oral route 2 times per day PRN Nadolol [facility] [address]-57 40 mg 1 TAB orally once a day Nov 12, 2014 1 tablet by Oral route 1 time per day Cymbalta [facility] [address]-84 60 mg Dec 19, 2011 1 capsule by Oral route 1 time per day for 14 days Triamterene-HCTZ [facility] [address]-81 50-25 MG Orally Once a day 1 capsule in the morning Procedures Procedure Coding System Code Date Office Visit, New Pt., Level 4 CPT-4 95108 Jun 24, 2015 Vital Signs Date/Time: Jun 24, 2015 Temperature 98.0 F Weight 228.0 lbs Height 64 in BMI 39.13 Index Blood Pressure Diastolic 86 mmHg Blood Pressure Systolic 138 mmHg Cardiac Monitoring Heart Rate 82 bpm Results No Known Results Summary Purpose eClinicalWorks Submission
--- OUTSIDE RECORDS SUMMARY | 2018-04-01 14:36 | XMS REPORT ---
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 Name Role Phone Gus KAITLYNN Unavailable PROBLEMS Type Condition ICD9-CM Code NJP51-CZ Code Onset Dates Condition Status SNOMED Code Problem Hypertension I10 Active 44335576 Problem Obesity, unspecified E66.9 Active 300014107 Problem Generalized anxiety disorder F41.1 Active 555193872 Problem Morbid (severe) obesity due to excess calories E66.01 Active 332226138 Problem Body mass index (BMI) of 40.0-44.9 in adult Z68.41 Active 127404083 Problem Hypercholesteremia E78.0 Active 26736553 Problem Family history of hypercholesterolemia Z83.49 Active 159386720 Problem Chronic fatigue R53.82 Active 54884087 Problem Left sided abdominal pain of unknown cause R10.30 Active 908606749 Problem Female hirsutism L68.0 Active 00489360 Problem Hyperlipidemia E78.5 Active 44964893 Problem Sleep apnea in adult G47.33 Active 36993595 Problem Seborrheic keratoses L82.1 Active 039087295 Problem Lumbago M54.5 Active 087397725 ALLERGIES No Information ENCOUNTERS Encounter Location Date Diagnosis [facility] [id number] [place] [address] 23848- 0775 Dec, [facility] [address] [place] [address] 48603- 3501 Nov, Body mass index (BMI) of 40.0-44.9 in adult Z68.41 ; Hypertension I10 and Seasonal allergic rhinitis, unspecified trigger J30.2 [facility] [id number] [address] Nov, Hypertension I10 [facility] [address] [address] 13736- 6658 Nov, Generalized anxiety disorder 300.02 [facility] [id number] [place] [address] 30669- 5013 Nov, [facility] [id number] [place] [address] 11897- 1707 Oct, [facility] [id number] [place] [address] 68610- 9872 Oct, [facility] [id number] [address] 92086- 3459 Oct, Acute chest wall pain R07.89 [facility] [id number] [place] [address] 30935- 2645 Oct, [facility] [id number] [place] [address] 42342- 6617 Sep, Left breast mass N63.20 [facility] [id number] [place] [address] 06048- 7683 Sep, Left breast mass N63.20 [facility] [id number] [place] [address] 27876- 6945 Aug, Hypertension I10 [facility] [id number] [place] [address] 43501- 7444 Aug, Generalized anxiety disorder 300.02 [facility] [id number] [place] [address] 30046- 3207 Jul, Generalized anxiety disorder 300.02 [facility] [id number] [place] [address] 76791- 9871 Jul, Sleep apnea in adult G47.33 [facility] [id number] [place] [address] 63592- 4433 Jul, Hypertension I10 ; Sleep apnea in adult G47.33 ; Body mass index (BMI) of 40.0-44.9 in adult Z68.41 ; Morbid (severe) obesity due to excess calories E66.01 and Female hirsutism L68.0 [place] [id number] [place] [address] 78121- 0331 Jul, Generalized anxiety disorder 300.02 [place] [id number] [place] [address] 66396- 6894 Jul, Generalized anxiety disorder 300.02 [facility] [address] 72274 -1107 Jun, Chronic fatigue R53.82 [place] [address] 29011- 1469 Jun, Generalized anxiety disorder F41.1 [place] [id number] [place] [address] 13098- 3617 May, Generalized anxiety disorder 300.02 [place] [address] 06224- 7495 Apr, Generalized anxiety disorder F41.1 ; Hypertension I10 ; Hyperlipidemia E78.5 ; Female hirsutism L68.0 and Sleep apnea in adult G47.33 [place] [id number] [place] [address] 99948- 7088 Mar, Hypertension I10 and Generalized anxiety disorder F41.1 [place] [id number] [place] [address] 15617- 4229 Mar, [place] [id number] [place] [address] 81346- 7771 February, Hypertension I10 and Generalized anxiety disorder F41.1 [place] [id number] [place] [address] 29664- 6961 February, Generalized anxiety disorder 300.02 [facility] [id number] [place] [address] 30519 -8422 February, Pelvic pain R10.2 and Painful bladder spasm R30.1 [address] [address] [address]- 8317 Jan, Generalized anxiety disorder 300.02 [address] [id number] [place] [address] 42158- 9312 Dec, Obesity, unspecified E66.9 ; Generalized anxiety disorder F41.1 and Hypertension I10 [place] [id number] [place] [address] 82998- 5391 Nov, Generalized anxiety disorder F41.1 ; Hypertension I10 ; Depression F32.9 and Obesity, unspecified E66.9 [place] [id number] [place] [address] 14052- 3884 Nov, Generalized anxiety disorder 300.02 [place] [id number] [place] [address] 51388- 8761 Oct, [place] [id number] [place] [address] 74927- 6757 Sep, History of pneumonia Z87.01 ; Hypokalemia E87.6 ; Hypertension I10 and Encounter for immunization Z23 [place] [id number] [place] [address] 40378- 6253 Jul, [place] [address] [place] [address] 91365- 3325 Apr, Hypertension I10 ; Hypercholesteremia E78.0 ; Obesity, unspecified E66.9 ; Anxiety F41.9 and Lumbago M54.5 [place] [address] [place] [address] 25645- 9516 Apr, Depression F32.9 [place] [id number] [place] [address] 29931- 4810 Mar, Essential (primary) hypertension I10 [facility] [address] [id number] [place] [address] Jan [address] [id number] [place] [address] 34709- 7032 Dec, [facility] [id number] [address] 06619- 0387 Dec, Generalized anxiety disorder F41.1 and Hypertension I10 [place] [id number] [place] [address] 26361- 3440 Dec, [place] [id number] [place] [address] 08407- 2442 Dec, Abdominal pain R10.9 [place] [address] [place] [address] 73251- 6546 Dec, Left sided abdominal pain of unknown cause R10.30 [place] [address] [place] [address] 39567- 9697 24 Nov, 2015 Generalized anxiety disorder 300.02 [place] [id number] [place] [address] 53852- 2005 Nov, Female hirsutism L68.0 ; Hypertension I10 ; Hyperlipidemia E78.5 ; Depression F32.9 and Anxiety F41.9 [place] [address] [place] [address] 94319- 3138 Oct, [place] [address] [place] [address] 21625- 8418 Oct, [place] [address] [place] [address] 92446- 9528 Oct, [place] [address] [place] [address] 05090- 5798 Oct, [place] [address] [place] [address] 07830- 8473 Oct, Well woman exam Z01.419 ; Encounter [...] unspecified obesity severity, unspecified obesity type E66.9 [place] [address] [place] [address] 97051- 6681 Jun, Generalized anxiety disorder 300.02 [place] [address] [place] [address] 05399351- 6027 04 Jun, 2015 Chest pain 786.50 ; Hypertension 401.9 ; Hyperlipemia 272.4 and Obesity 278.00 [place] [address] [place] [address] 89477- 8232 Apr, Generalized anxiety disorder 300.[address] [address]34- 2406 Apr, Generalized anxiety disorder 300.02 [address] [id number] [place] [address] 67024- 4215 Apr, [address] 77906- 1615 Apr, [id number] [place] [address] 61552- 2476 Apr, Abdominal pain 789.00 ; Dehydration 276.51 ; Generalized anxiety disorder 300.02 ; Other and unspecified bipolar disorders 296.89 ; Obesity, unspecified 278.00 ; Family history of hypercholesterolemia V18.19 ; Diarrhea 787.91 ; Sleep apnea in adult 327.23 and Essential hypertension 401.9 [id number] [place] [address] 46045- 2016 Mar, Generalized anxiety disorder 300.02 [id number] [place] [address] 97270- 5000 February, [id number] [place] [address] [id number]- 1918 Jan, [id number] [place] [address] 28207- 0716 Jan, [id number] [place] [place] [address]- 6787 Oct, [facility] [address] [id number] [place] [address]- 1271 Oct, [facility] [place] [facility] [address] [id number] [place] [address]- 2864 Oct, [facility] [address] [id number] [place] [address]- 0625 Oct, [facility] [place] [facility] [address] [id number] [place] [address]- 0210 Sep, [facility] [place] [facility] [address] [id number] [place] [address]- 4859 Sep, [facility] [place] [facility] [address] [id number] [place] [address]- 6437 Sep, [facility] [place] [facility] [address] [id number] [place] [address]- 2375 Sep, [facility] [place] [facility] [address] [id number] [place] [address]- 1524 Sep, [facility] [place] [facility] [address] [id number] [place] [address]- 3788 Sep, [facility] [place] [facility] [address] [id number] [place] [address]- 4176 Sep, [facility] [place] [facility] [address] [id number] [place] [address]- 7306 Aug, [facility] [place] [facility] [address] [id number] [place] [address]- 5687 Aug, [facility] [place] [facility] [address] [id number] [place] [address]- 7196 Aug, [facility] [place] [facility] [address] [id number] [place] [address]- 8136 Aug, [facility] [place] [facility] [address] [id number] [place] 0723 Jul, [facility] [place] [facility] [address] [id number] [place] [address]- 6571 Jul, [facility] [place] [facility] [address] [id number] [place] [address]- 2486 Jul, [facility] [place] [facility] [address] [id number] [place] [address]- 7582 Jul, [facility] [place] [facility] [address] [id number] [place] [address]- 0321 Jul, [facility] [place] [facility] [address] [id number] [place] [address]- 8035 Jul, [facility] [place] [facility] [address] [id number] [place] [address]- 0371 Jul, [facility] [place] [facility] [address] [id number] [place] [address]- 1322 Jul, [facility] [place] [facility] [address] [id number] [place] [address]- 4418 16 Jun, 2013 [facility] [place] [facility] [address] [id number] [place] [address]- 1033 16 Jun, 2013 [facility] [place] [facility] [address] [id number] [address]- 4847 15 Jun, 2013 [facility] [place] [facility] [address] [id number] [address]- 5342 15 Jun, 2013 [facility] [place] [facility] [address] [id number] [address]- 3025 09 Sep, 2013 [facility] [place] [facility] [address] [id number] [address]- 5539 09 Sep, 2013 [facility] [place] [facility] [address] [id number] [address]- 6249 04 Sep, 2013 [facility] [place] [facility] [address] [id number] [address]- 9218 04 Sep, 2013 [facility] [place] [facility] [address] [id number] [address]- 8183 Jun, 2013 [facility] [place] [facility] [address] [id number] [place] [address]- 5493 Jun, 2013 [facility] [place] [facility] [address] [id number] [place] [address]- 3196 Jun, 2013 [facility] [place] [facility] [address] [id number] [place] [address]- 7021 Jun, 2013 [facility] [place] [facility] [address] [id number] [place] [address]- 8246 Jun, 2013 [facility] [place] [facility] [address] [id number] [place] [address]- 1464 Jun, 2013 [facility] [place] [facility] [address] [id number] [place] [address]- 7232 Jun, 2013 [facility] [place] [facility] [address] [id number] [place] [address]- 2956 Jun, 2013 [facility] [place] [facility] [address] [id number] [place] [address]- 7495 May, [facility] [place] [facility] [address] [id number] [place] [address]- 1325 May, [facility] [place] [facility] [address] [id number] [place] [address]- 8388 Apr, [facility] [place] [facility] [address] [id number] [place] [address]- 7112 Apr, [facility] [place] [facility] [address] [id number] [place] [address]- 3123 Apr, [facility] [place] [facility] [address] [id number] [place] [address]- 1380 Apr, [facility] [place] [facility] [address] [id number] [place] [address]- 6841 Apr, [facility] [place] [facility] [address] [id number] [place] [address]- 7717 Apr, [facility] [place] [facility] [address] [id number] [place] [address]- 2019 16 Apr, 2013 [facility] [place] [facility] [address] [id number] [place] [address]- 1040 Apr, 2013 [facility] [place] [facility] [address] [id number] [place] [address]- 0866 Apr, 2013 [facility] [place] [facility] [address] [id number] [place] [address]- 8330 Apr, 2013 [facility] [place] [facility] [address] [id number] [place] [address]- 5746 Apr, 2013 [facility] [place] [facility] [address] [id number] [place] [address]- 7282 Apr, 2013 [facility] [place] [facility] [address] [id number] [place] [address]- 3425 Apr, 2013 [facility] [place] [facility] [address] [id number] [place] [address]- 4588 Apr, 2013 [facility] [place] [facility] [address] [id number] [place] [address]- 1253 Apr, 2013 [facility] [place] [facility] [address] [id number] [place] [address]- 3890 Apr, 2013 [facility] [place] [facility] [address] [id number] [place] [address]- 9090 Apr, 2013 [facility] [place] [facility] [address] [id number] [place] [address]- 8951 Apr, 2013 [facility] [place] [facility] [address] [id number] [place] [address]- 8984 Apr, 2013 [facility] [place] [facility] [address] [id number] [place] [address]- 8517 Apr, 2013 [facility] [place] [facility] [address] [id number] [place] [address]- 5097 Mar, [facility] [place] [facility] [address] [id number] [place] [address]- 2877 Mar, [facility] [place] [facility] [address] [id number] [place] [address]- 5780 February, [facility] [place] [facility] [address] [id number] [place] [address]- 5745 February, [facility] [place] [facility] [address] [id number] [place] [address]- 3201 Jan, [facility] [place] [facility] [address] [id number] [place] [address]- 4467 Jan, [facility] [place] [facility] [address] [id number] [place] [address]- 3146 Jan, [facility] [place] [facility] [address] [id number] [place] [address]- 7013 Jan, [facility] [place] [facility] [address] [id number] [place] [address]- 2014 Dec, [facility] [place] [facility] [address] [id number] [place] [address]- 4200 Dec, [facility] [place] [facility] [address] [id number] [place] [address]- 2364 Oct, [facility] [place] [facility] [address] [id number] [place] [address]- 6651 Oct, [facility] [place] [facility] [address] [id number] [place] [address]- 4223 Oct, [facility] [place] [facility] [address] [id number] [place] [address]- 7038 Oct, [facility] [place] [facility] [address] [id number] [place] [address]- 0700 Aug, [facility] [place] [facility] [address] [id number] [place] [address]- 7394 Aug, [facility] [place] [facility] [address] [id number] [place] [address]- 9380 Aug, [facility] [place] [facility] [address] [id number] [place] [address]- 9996 Aug, [facility] [place] [facility] [address] [id number] [place] [address]- 2476 Jul, [facility] [place] [facility] [address] [id number] [place] [address]- 7533 Jul, [facility] [place] [facility] [address] [id number] [place] [address]- 3998 Jul, [facility] [place] [facility] [address] [id number] [place] [address]- 6947 Jun, [facility] [place] [facility] [address] [id number] [place] [address]- 2678 May, [facility] [place] [facility] [address] [id number] [place] [address]- 6475 Apr, [facility] [place] [facility] [address] [id number] [place] [address]- 6833 Apr, [facility] [place] [facility] [address] [id number] [place] [address]- 6862 Apr, [facility] [place] [facility] [address] [id number] [place] [address]- 7535 Apr, [facility] [place] [facility] [address] [id number] [place] [address]- 4522 Mar, [facility] [place] [facility] [address] [id number] [place] [address]- 0215 Mar, [facility] [place] [facility] [address] [id number] [place] [address]- 3232 Mar, [facility] [place] [facility] [address] [id number] [place] [address]- 4334 Mar, [facility] [place] [facility] [address] [id number] [place] [address]- 1717 February, [facility] [place] [facility] [address] [id number] [place] [address]- 0863 February, [facility] [place] [facility] [address] [id number] [place] [address]- 3792 February, [facility] [address] [id number] [place] [address]- 2995 February, [facility] [address] [id number] [place] [address]- 7136 February, [facility] [address] [id number] [place] [address]- 7268 Jan, [facility] [address] [id number] [place] [address]- 5777 Dec, [facility] [address] [id number] [place] [address]- 7460 Nov, [facility] [address] [id number] [place] [address]- 3938 Nov, [facility] [address] [id number] [place] [address]- 1365 Nov, [facility] [address] [id number] [place] [address]- 1251 Oct, [facility] [address] [id number] [place] [address]- 7146 Oct, [facility] [address] [id number] [place] [address]- 2142 Oct, [facility] [address] [id number] [address]- 6891 Oct, [facility] [place] [facility] [address] [id number] [place] [address]- 2792 Oct, [facility] [place] [facility] [address] [id number] [place] [address]- 2543 Oct, [facility] [place] [facility] [address] [id number] [place] [address]- 2183 Sep, [facility] [address] [id number] [place] [address]- 3104 Sep, [facility] [place] [facility] [address] [id number] [place] [address]- 4118 Sep, [facility] [place] [facility] [address] [facility] [id number] [place] 7661 Sep, [facility] [place] [facility] [address] [facility] [id number] [place] [address] Aug, [facility] [place] [facility] [address] [id number] [place] [address] Aug, [facility] [place] [facility] [address] [facility] [id number] [place] [address] Aug, [facility] [place] [facility] [address] [facility] [id number] [place] [address] Aug, [facility] [place] [facility] [id number] [place] [address] Aug, [facility] [place] [facility] [address] [facility] [id number] [place] [address] Aug, [facility] [place] [facility] [address] [id number] [address] Jul, [facility] [place] [facility] [address] [facility] [id number] [place] [address] Jul, [facility] [place] [facility] [address] [facility] [id number] [place] [address] Jul, [facility] [place] [facility] [address] [facility] [id number] [place] [address] Jul, [facility] [place] [facility] [address] [facility] [id number] [place] [address] Jul, [facility] [place] [facility] [address] [facility] [id number] [place] [address] Jul, [facility] [place] [facility] [address] [facility] [id number] [place] [address] Jul, [facility] [place] [facility] [address] [id number] [place] [address] Jul, [facility] [place] [facility] [address] [id number] [place] [address] Jul, [facility] [place] [facility] [address] [id number] [place] [address] Jul, [facility] [place] [facility] [address] [id number] [place] [address] Jun, [facility] [place] [facility] [address] [id number] [place] [address] Jun, [facility] [place] [facility] [address] [id number] [place] [address] Jun, [facility] [place] [facility] [address] [id number] [place] [address] May, [facility] [place] [facility] [address] [id number] [place] [address] May, [facility] [place] [facility] [address] [id number] [place] [address] May, [facility] [place] [facility] [address] [id number] [place] [address] May, [facility] [place] [facility] [address] [id number] [place] [address] Apr, [facility] [place] [facility] [address] [id number] [place] [address] Apr, [facility] [place] [facility] [address] [id number] [place] [address]99 Apr, [facility] [place] [facility] [address] [id number] [place] [address] Apr, [facility] [place] [facility] [address] [id number] [place] [address] Mar, [facility] [place] [facility] [address] [id number] [place] [address] 13 Mar, 2012 [facility] [place] [facility] [address] [id number] [place] [address] Mar, [facility] [place] [facility] [address] [id number] [place] [address] February, [facility] [place] [facility] [address] [id number] [place] [address] February, [facility] [place] [facility] [address] [id number] [place] [address] Jan, [facility] [place] [facility] [address] [id number] [place] [address] Jan, [facility] [place] [facility] [address] [id number] [place] [address] Jan, [facility] [place] [facility] [address] [id number] [place] [address] Dec, [facility] [place] [facility] [address] [id number] [place] [address] Dec, [facility] [place] [facility] [address] [id number] [place] [address] 14 Dec, 2011 [facility] [place] [facility] [address] [id number] [place] [address] Dec, [facility] [place] [facility] [address] [id number] [place] [address] Nov, [facility] [place] [facility] [address] [id number] [place] [address]- [address] Nov, [facility] [place] [facility] [address] [id number] [place] [address] Nov, [facility] [place] [facility] [address] [id number] [place] [address] 16 Nov, 2011 [facility] [place] [facility] [address] [id number] [place] [address]- [address] 09 Nov, 2011 [facility] [place] [facility] [address] [id number] [place] [address] 06 Nov, 2011 [facility] [address] [address] [id number] [place] [address] Nov, [facility] [address] [id number] [place] [address] Oct, [facility] [address] [id number] [place] [address] Oct, [facility] [address] [id number] [place] [address] Oct, [facility] [address] [id number] [place] [address] Oct, [facility] [address] [id number] [place] [address] Oct, [facility] [address] [id number] [place] [address] Oct, [facility] [address] [id number] [place] [address] Oct, [facility] [address] [id number] [place] [address] Oct, [facility] [address] [id number] [place] [address] Sep, [facility] [address] [id number] [place] [address] Sep, [facility] [address] [id number] [place] [address] Sep, [facility] [place] [facility] [address] [id number] [place] [address] Sep, [facility] [address] [id number] [place] [address] Aug, [facility] [address] [id number] [place] [address] Aug, [facility] [address] [facility] [id number] [address] Aug, [facility] [address] [facility] [id number] [place] [address] Jul, [facility] [address] [facility] [id number] [place] [address] Jul, [facility] [address] [facility] [id number] [place] [address] Jul, [facility] [address] [facility] [id number] [place] [address] Oct, [facility] [address] [facility] [id number] [place] [address] Aug, [facility] [address] [facility] [id number] [place] [address] Aug, [facility] [id number] [address] Sep, [facility] [address] [facility] [id number] [place] [address] Sep, [facility] [address] [facility] [id number] [place] [address] Sep, [facility] [address] [facility] [id number] [place] [address] Jan, IMMUNIZATIONS No Known Immunizations SOCIAL HISTORY Never Assessed REASON FOR VISIT Eye Exam PLAN OF CARE VITAL SIGNS MEDICATIONS Unknown [...]
--- OUTSIDE RECORDS SUMMARY | 2018-04-01 14:36 | XMS REPORT ---
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 Name Role Phone OSVALDO RODRIGUEZ Unavailable PROBLEMS Type Condition ICD9-CM Code GAI48-DE Code Onset Dates Condition Status SNOMED Code Problem Hypertension I10 Active 51650831 Problem Obesity, unspecified E66.9 Active 437740294 Problem Generalized anxiety disorder F41.1 Active 031990734 Problem Morbid (severe) obesity due to excess calories E66.01 Active 531554476 Problem Body mass index (BMI) of 40.0-44.9 in adult Z68.41 Active 701559023 Problem Hypercholesteremia E78.0 Active 18377911 Problem Family history of hypercholesterolemia Z83.49 Active 608371100 Problem Chronic fatigue R53.82 Active 46984151 Problem Left sided abdominal pain of unknown cause R10.30 Active 778549189 Problem Female hirsutism L68.0 Active 49915607 Problem Hyperlipidemia E78.5 Active 34342728 Problem Sleep apnea in adult G47.33 Active 24047489 Problem Seborrheic keratoses L82.1 Active 158076115 Problem Lumbago M54.5 Active 735552098 ALLERGIES No Information SOCIAL HISTORY Never Assessed PLAN OF CARE Activity Details Follow Up prn as pt wants with 1 hour appointments Reason: VITAL SIGNS MEDICATIONS Unknown Medications RESULTS No Results PROCEDURES Procedure Date Ordered Result Body Site Psychotherapy, patient &/family, 45 minutes, established patient March 06, 2017 IMMUNIZATIONS No Known Immunizations MEDICAL (GENERAL) [...]
--- OUTSIDE RECORDS SUMMARY | 2018-04-01 14:38 | XMS REPORT | Continuity of Care Document ---
Author Author Formerly [facility], [facility] Address Unknown Phone Unavailable Allergies Active Description Code Type Severity Reaction Onset Reported/Identified Relationship to Patient Clinical Status Yes amoxicillin Drug Allergy 02/04/2009 Yes amoxicillin Drug Allergy N/A N/A 02/04/2009 Yes No Known Drug Allergies [id number] Drug Allergy Unknown N/A 10/30/2011 Yes amoxicillin [id number] Drug Allergy Unknown N/A 05/01/2015 Medications There is no data. Problems Date Dx Coded Attending Type Code Diagnosis Diagnosed By 06/19/2008 OSVALDO RODRIGUEZ PSYD V70.5 PREEMPLOYMENT/PRESCHOOL EXAM 06/19/2008 TAVON RILEY APRN V70.5 Preemployment/preschool Exam 06/19/2008 SANCHEZ ELDA EMERY V70.5 Preemployment/preschool Exam 06/19/2008 OSVALDO RODRIGUEZ PSYD V70.5 Preemployment/preschool Exam 06/19/2008 SANCHEZ ELDA EMERY V70.5 Preemployment/preschool Exam 06/19/2008 OSVALDO RODRIGUEZ PSYD V70.5 Preemployment/preschool Exam 06/19/2008 V70.5 Preemployment/ preschool Exam 06/19/2008 V70.5 Preemployment/ preschool Exam 06/19/2008 V70.5 Preemployment/ preschool Exam 06/19/2008 V70.5 Preemployment/ preschool Exam 06/19/2008 ELDA SANCHEZ DO K V70.5 Preemployment/preschool Exam 06/19/2008 ELDA SANCHEZ DO K V70.5 Preemployment/preschool Exam 06/19/2008 SANCHEZ ELDA EMERY K V70.5 Preemployment/preschool Exam 06/19/2008 ROD WU APRN V70.5 Preemployment/preschool Exam 06/19/2008 OSVALDO RODRIGUEZ PSYD L V70.5 Preemployment/preschool Exam 06/19/2008 SANCHEZ DO ELDA K V70.5 Preemployment/preschool Exam 06/19/2008 OSVALDO RODRIGUEZ PSYD L V70.5 Preemployment/preschool Exam 06/19/2008 OSVALDO RODRIGUEZ PSYD L V70.5 Preemployment/preschool Exam 06/19/2008 SANCHEZ DO ELDA K V70.5 Preemployment/preschool Exam 06/19/2008 OSVALDO RODRIGUEZ PSYD L V70.5 Preemployment/preschool Exam 06/19/2008 OSVALDO RODRIGUEZ PSYD L V70.5 Preemployment/preschool Exam 06/19/2008 SANCHEZ DO ELDA K V70.5 Preemployment/preschool Exam 06/19/2008 SACNHEZ DO ELDA K V70.5 Preemployment/preschool Exam 06/19/2008 SANCHEZ DO ELDA K V70.5 Preemployment/preschool Exam 06/19/2008 SANCHEZ DO ELDA K V70.5 Preemployment/preschool Exam 06/19/2008 OSVALDO RODRIGUEZ PSYD L V70.5 Preemployment/preschool Exam 06/19/2008 SANCHEZ DO ELDA K V70.5 Preemployment/preschool Exam 06/19/2008 SANCHEZ DO ELDA K V70.5 Preemployment/preschool Exam 06/19/2008 OSVALDO RODRIGUEZ PSYD L V70.5 Preemployment/preschool Exam 06/19/2008 SANCHEZ DO ELDA K V70.5 Preemployment/preschool Exam 09/29/2008 OSVALDO RODRIGUEZ PSYD L 300.4 MO DYSTHYMIC DIS 09/29/2008 TAVON RILEY APRN 300.4 MO DYSTHYMIC DIS 09/29/2008 SANCHEZ ELDA EMERY K 300.4 MO DYSTHYMIC DIS 09/29/2008 OSVALDO RODRIGUEZ PSYD L 300.4 MO DYSTHYMIC DIS 09/29/2008 SANCHEZ DO, ELDA K 300.4 MO DYSTHYMIC DIS 09/29/2008 OSVALDO RODRIGUEZ PSYD L 300.4 MO DYSTHYMIC DIS 09/29/2008 300.4 MO DYSTHYMIC DIS 09/29/2008 300.4 MO DYSTHYMIC DIS 09/29/2008 300.4 MO DYSTHYMIC DIS 09/29/2008 300.4 MO DYSTHYMIC DIS 09/29/2008 SANCHEZ DO, ELDA K 300.4 MO DYSTHYMIC DIS 09/29/2008 SANCHEZ DO, ELDA K 300.4 MO DYSTHYMIC DIS 09/29/2008 SANCHEZ DO, ELDA K 300.4 MO DYSTHYMIC DIS 09/29/2008 JAZMINANGELICA CHRISTENSENN, ROD A 300.4 MO DYSTHYMIC DIS 09/29/2008 OSVALDO RODRIGUEZ PSYD L 300.4 MO DYSTHYMIC DIS 09/29/2008 SANCHEZ DO ELDA K 300.4 MO DYSTHYMIC DIS 09/29/2008 OSVALDO RODRIGUEZ PSYD L 300.4 MO DYSTHYMIC DIS 09/29/2008 OSVALDO RODRIGUEZ PSYD ANN L 300.4 MO DYSTHYMIC DIS 09/29/2008 SANCHEZ DO ELDA K 300.4 MO DYSTHYMIC DIS 09/29/2008 OSVALDO RODRIGUEZ PSYD L 300.4 MO DYSTHYMIC DIS 09/29/2008 OSVALDO RODRIGUEZ PSYD ANN L 300.4 MO DYSTHYMIC DIS 09/29/2008 SANCHEZ DO ELDA K 300.4 MO DYSTHYMIC DIS 09/29/2008 SANCHEZ DO ELDA K 300.4 MO DYSTHYMIC DIS 09/29/2008 SANCHEZ DO ELDA K 300.4 MO DYSTHYMIC DIS 09/29/2008 SANCHEZ DO, ELDA K 300.4 MO DYSTHYMIC DIS 09/29/2008 OSVALDO RODRIGUEZ PSYD ANN L 300.4 MO DYSTHYMIC DIS 09/29/2008 SANCHEZ DO ELDA K 300.4 MO DYSTHYMIC DIS 09/29/2008 SANCHEZ DO, ELDA K 300.4 MO DYSTHYMIC DIS 09/29/2008 OSVALDO RODRIGUEZ PSYD ANN L 300.4 MO DYSTHYMIC DIS 09/29/2008 SANCHEZ DO ELDA K 300.4 MO DYSTHYMIC DIS 02/04/2009 OSVALDO RODRIGUEZ PSYD V72.31 Pelvic Exam (internal) 02/04/2009 TAVON RILEY APRN V72.31 Pelvic Exam (internal) 02/04/2009 SANCHEZ DO, ELDA K V72.31 Pelvic Exam (internal) 02/04/2009 OSVALDO RODRIGUEZ PSYD L V72.31 Pelvic Exam (internal) 02/04/2009 SANCHEZ DO, ELDA K V72.31 Pelvic Exam (internal) 02/04/2009 OSVALDO RODRIGUEZ PSYD L V72.31 Pelvic Exam (internal) 02/04/2009 V72.31 Pelvic Exam ( internal) 02/04/2009 V72.31 Pelvic Exam ( internal) 02/04/2009 V72.31 Pelvic Exam ( internal) 02/04/2009 V72.31 Pelvic Exam ( internal) 02/04/2009 SANCHEZ DO, ELDA K V72.31 Pelvic Exam (internal) 02/04/2009 SANCHEZ DO, ELDA K V72.31 Pelvic Exam (internal) 02/04/2009 SANCHEZ DO, ELDA K V72.31 Pelvic Exam (internal) 02/04/2009 ROD WU APRN V72.31 Pelvic Exam (internal) 02/04/2009 OSVALDO RODRIGUEZ PSYD L V72.31 Pelvic Exam (internal) 02/04/2009 SANCHEZ DO, ELDA K V72.31 Pelvic Exam (internal) 02/04/2009 OSVALDO RODRIGUEZ PSYD L V72.31 Pelvic Exam (internal) 02/04/2009 OSVALDO RODRIGUEZ PSYD L V72.31 Pelvic Exam (internal) 02/04/2009 SANCHEZ DO, ELDA K V72.31 Pelvic Exam (internal) 02/04/2009 OSVALDO RODRIGUEZ PSYD L V72.31 Pelvic Exam (internal) 02/04/2009 OSVALDO RODRIGUEZ PSYD L V72.31 Pelvic Exam (internal) 02/04/2009 SANCHEZ DO, ELDA K V72.31 Pelvic Exam (internal) 02/04/2009 SANCHEZ DO, ELDA K V72.31 Pelvic Exam (internal) 02/04/2009 SANCHEZ DO, ELDA K V72.31 Pelvic Exam (internal) 02/04/2009 SANCHEZ DO, ELDA K V72.31 Pelvic Exam (internal) 02/04/2009 OSVALDO RODRIGUEZ PSYD V72.31 Pelvic Exam (internal) 02/04/2009 SANCHEZ DO ELDA K V72.31 Pelvic Exam (internal) 02/04/2009 SANCHEZ DO, ELDA K V72.31 Pelvic Exam (internal) 02/04/2009 OSVALDO RODRIGUEZ PSYD V72.31 Pelvic Exam (internal) 02/04/2009 SANCHEZ DOELDA K V72.31 Pelvic Exam (internal) 09/20/2009 OSVALDO RODRIGUEZ PSYD L 278.00 OBESITY, UNSPECIFIED 09/20/2009 OSVALDO RODRIGUEZ PSYD L 307.40 INSOMNIA 09/20/2009 OSVALDO RODRIGUEZ PSYD L 709.9 Skin Lesions 09/20/2009 LUIS FERNANDO RILEY APRNA S 278.00 Obesity, Unspecified 09/20/2009 VINCENT RILEY APRNNDA S 307.40 Insomnia 09/20/2009 TAVON RILEY APRN S 709.9 Skin Lesions 09/20/2009 SANCHEZ DO ELDA K 278.00 Obesity, Unspecified 09/20/2009 SANCHEZ DO, ELDA K 307.40 Insomnia 09/20/2009 SANCHEZ DO ELDA K 709.9 Skin Lesions 09/20/2009 OSVALDO RODRIGUEZ PSYD L 278.00 Obesity, Unspecified 09/20/2009 OSVALDO RODRIGUEZ PSYD L 307.40 Insomnia 09/20/2009 OSVALDO RODRIGUEZ PSYD L 709.9 Skin Lesions 09/20/2009 SANCHEZ DO ELDA K 278.00 Obesity, Unspecified 09/20/2009 SANCHEZ DO, ELDA K 307.40 Insomnia 09/20/2009 SANCHEZ DO ELDA K 709.9 Skin Lesions 09/20/2009 OSVALDO RODRIGUEZ PSYD L 278.00 Obesity, Unspecified 09/20/2009 OSVALDO RODRIGUEZ PSYD L 307.40 Insomnia 09/20/2009 OSVALDO RODRIGUEZ PSYD L 709.9 Skin Lesions 09/20/2009 278.00 Obesity, Unspecified 09/20/2009 307.40 Insomnia 09/20/2009 709.9 Skin Lesions 09/20/2009 278.00 Obesity, Unspecified 09/20/2009 307.40 Insomnia 09/20/2009 709.9 Skin Lesions 09/20/2009 278.00 Obesity, Unspecified 09/20/2009 307.40 Insomnia 09/20/2009 709.9 Skin Lesions 09/20/2009 278.00 Obesity, Unspecified 09/20/2009 307.40 Insomnia 09/20/2009 709.9 Skin Lesions 09/20/2009 SANCHEZ DO, ELDA K 278.00 Obesity, Unspecified 09/20/2009 SANCHEZ DO, ELDA K 307.40 Insomnia 09/20/2009 SANCHEZ DO, ELDA K 709.9 Skin Lesions 09/20/2009 SANCHEZ DO, ELDA K 278.00 Obesity, Unspecified 09/20/2009 SANCHEZ DO, ELDA K 307.40 Insomnia 09/20/2009 SANCHEZ DO, ELDA K 709.9 Skin Lesions 09/20/2009 SANCHEZ DO, ELDA K 278.00 Obesity, Unspecified 09/20/2009 SANCHEZ DO, ELDA K 307.40 Insomnia 09/20/2009 SANCHEZ DO, ELDA K 709.9 Skin Lesions 09/20/2009 JAZMIN TECHNOLOGY AUDITOR, ROD A 278.00 Obesity, Unspecified 09/20/2009 JAZMIN TECHNOLOGY AUDITOR, ROD A 307.40 Insomnia 09/20/2009 JAZMIN TECHNOLOGY AUDITOR, ROD A 709.9 Skin Lesions 09/20/2009 OSVALDO RODRIGUEZ PSYD ANN L 278.00 Obesity, Unspecified 09/20/2009 OSVALDO RODRIGUEZ PSYD ANN L 307.40 Insomnia 09/20/2009 OSVALDO RODRIGUEZ PSYD ANN L 709.9 Skin Lesions 09/20/2009 SANCHEZ DO, ELDA K 278.00 Obesity, Unspecified 09/20/2009 SANCHEZ DO, ELDA K 307.40 Insomnia 09/20/2009 SANCHEZ DO, ELDA K 709.9 Skin Lesions 09/20/2009 OSVALDO RODRIGUEZ PSYD ANN L 278.00 Obesity, Unspecified 09/20/2009 MICHAEL DORAN JEREMIAS L 307.40 Insomnia 09/20/2009 MICHAEL DORAN JEREMIAS L 709.9 Skin Lesions 09/20/2009 OSVALDO RODRIGUEZ PSYD ANN L 278.00 Obesity, Unspecified 09/20/2009 MCCLEEARY PSYD, JEREMIAS L 307.40 Insomnia 09/20/2009 MCCBULL POTTERYD, JEREMIAS L 709.9 Skin Lesions 09/20/2009 SANCHEZ DO, ELDA K 278.00 Obesity, Unspecified 09/20/2009 SANCHEZ DO, ELDA K 307.40 Insomnia 09/20/2009 SANCHEZ DO, ELDA K 709.9 Skin Lesions 09/20/2009 MICHAEL DORAN, JEREMIAS L 278.00 Obesity, Unspecified 09/20/2009 MCCLEEARY ABBEYYD, JEREMIAS L 307.40 Insomnia 09/20/2009 MCCTALIAY ABBEYYD, JEREMIAS L 709.9 Skin Lesions 09/20/2009 MCCJERMAINEEARJaxon POTTERYD, JEREMIAS L 278.00 Obesity, Unspecified 09/20/2009 MCCLEEARY ABBEYYD, JEREMIAS L 307.40 Insomnia 09/20/2009 MCCLEEARY ABBEYYD, JEREMIAS L 709.9 Skin Lesions 09/20/2009 SANCHEZ DO, ELDA K 278.00 Obesity, Unspecified 09/20/2009 SANCHEZ DO, ELDA K 307.40 Insomnia 09/20/2009 SANCHEZ DO, ELDA K 709.9 Skin Lesions 09/20/2009 SANCHEZ DO, ELDA K 278.00 Obesity, Unspecified 09/20/2009 SANCHEZ DO, ELDA K 307.40 Insomnia 09/20/2009 SANCHEZ DO, ELDA K 709.9 Skin Lesions 09/20/2009 SANCHEZ DO, ELDA K 278.00 Obesity, Unspecified 09/20/2009 SANCHEZ DO, ELDA K 307.40 Insomnia 09/20/2009 SANCHEZ DO, ELDA K 709.9 Skin Lesions 09/20/2009 SANCHEZ DO, ELDA K 278.00 Obesity, Unspecified 09/20/2009 SANCHEZ DO, ELDA K 307.40 Insomnia 09/20/2009 SANCHEZ DO, ELDA K 709.9 Skin Lesions 09/20/2009 MCCLEEARY ABBEYYD, JEREMIAS L 278.00 Obesity, Unspecified 09/20/2009 MCCLEEARY PSYD, JEREMIAS L 307.40 Insomnia 09/20/2009 MCCLEEARY ABBEYYD, JEREMIAS L 709.9 Skin Lesions 09/20/2009 SANCHEZ DO, ELDA K 278.00 Obesity, Unspecified 09/20/2009 SANCHEZ DO, ELDA K 307.40 Insomnia 09/20/2009 SANCHEZ DO, ELDA K 709.9 Skin Lesions 09/20/2009 SANCHEZ DO, ELDA K 278.00 Obesity, Unspecified 09/20/2009 SANCHEZ DO, ELDA K 307.40 Insomnia 09/20/2009 SANCHEZ DO, ELDA K 709.9 Skin Lesions 09/20/2009 OSVALDO RODRIGUEZ PSYD L 278.00 Obesity, Unspecified 09/20/2009 OSVALDO RODRIGUEZ PSYD L 307.40 Insomnia 09/20/2009 OSVALDO RODRIGUEZ PSYD ANN L 709.9 Skin Lesions 09/20/2009 SANCHEZ DO, ELDA K 278.00 Obesity, Unspecified 09/20/2009 SANCHEZ DO, ELDA K 307.40 Insomnia 09/20/2009 SANCHEZ DO, ELDA K 709.9 Skin Lesions 11/15/2009 OSVALDO RODRIGUEZ PSYD L 380.10 Otitis Externa - Both Ears 11/15/2009 OSVALDO RODRIGUEZ PSYD L 388.70 Earache Both Ears 11/15/2009 OSVALDO RODRIGUEZ PSYD L 462 Sore Throat 11/15/2009 OSVALDO TECHNOLOGY AUDITOR, TAVON S 380.10 Otitis Externa - Both Ears 11/15/2009 OSVALDO TECHNOLOGY AUDITOR, TAVON S 388.70 Earache Both Ears 11/15/2009 OSVALDO TECHNOLOGY AUDITOR, TAVON S 462 Sore Throat 11/15/2009 SANCHEZ DO, ELDA K 380.10 Otitis Externa - Both Ears 11/15/2009 SANCHEZ DO, ELDA K 388.70 Earache Both Ears 11/15/2009 SANCHEZ DO, ELDA K 462 Sore Throat 11/15/2009 OSVALDO RODRIGUEZ PSYD L 380.10 Otitis Externa - Both Ears 11/15/2009 OSVALDO RODRIGUEZ PSYD L 388.70 Earache Both Ears 11/15/2009 OSVALDO RODRIGUEZ PSYD ANN L 462 Sore Throat 11/15/2009 SANCHEZ DO, ELDA K 380.10 Otitis Externa - Both Ears 11/15/2009 SANCHEZ DO, ELDA K 388.70 Earache Both Ears 11/15/2009 SANCHEZ DO, ELDA K 462 Sore Throat 11/15/2009 OSVALDO RODRIGUEZ PSYD L 380.10 Otitis Externa - Both Ears 11/15/2009 OSVALDO RODRIGUEZ PSYD L 388.70 Earache Both Ears 11/15/2009 OSVALDO RODRIGUEZ PSYD L 462 Sore Throat 11/15/2009 380.10 Otitis Externa - Both Ears 11/15/2009 388.70 Earache Both Ears 11/15/2009 462 Sore Throat 11/15/2009 380.10 Otitis Externa - Both Ears 11/15/2009 388.70 Earache Both Ears 11/15/2009 462 Sore Throat 11/15/2009 380.10 Otitis Externa - Both Ears 11/15/2009 388.70 Earache Both Ears 11/15/2009 462 Sore Throat 11/15/2009 380.10 Otitis Externa - Both Ears 11/15/2009 388.70 Earache Both Ears 11/15/2009 462 Sore Throat 11/15/2009 SANCHEZ DO, ELDA K 380.10 Otitis Externa - Both Ears 11/15/2009 SANCHEZ DO, ELDA K 388.70 Earache Both Ears 11/15/2009 SANCHEZ DO, ELDA K 462 Sore Throat 11/15/2009 SANCHEZ DO, ELDA K 380.10 Otitis Externa - Both Ears 11/15/2009 SANCHEZ DO, ELDA K 388.70 Earache Both Ears 11/15/2009 SANCHEZ DO, ELDA K 462 Sore Throat 11/15/2009 SANCHEZ DO, ELDA K 380.10 Otitis Externa - Both Ears 11/15/2009 SANCHEZ DO, ELDA K 388.70 Earache Both Ears 11/15/2009 SANCHEZ DO, ELDA K 462 Sore Throat 11/15/2009 JAZMIN TECHNOLOGY AUDITOR, ROD A 380.10 Otitis Externa - Both Ears 11/15/2009 JAZMIN TECHNOLOGY AUDITOR, ROD A 388.70 Earache Both Ears 11/15/2009 JAZMIN TECHNOLOGY AUDITOR, ROD A 462 Sore Throat 11/15/2009 OSVALDO RODRIGUEZ PSYD L 380.10 Otitis Externa - Both Ears 11/15/2009 OSVALDO RODRIGUEZ PSYD L 388.70 Earache Both Ears 11/15/2009 OSVALDO RODRIGUEZ PSYD L 462 Sore Throat 11/15/2009 SANCHEZ DO, ELDA K 380.10 Otitis Externa - Both Ears 11/15/2009 SANCHEZ DO, ELDA K 388.70 Earache Both Ears 11/15/2009 SANCHEZ DO, ELDA K 462 Sore Throat 11/15/2009 OSVALDO RODRIGUEZ PSYD ANN L 380.10 Otitis Externa - Both Ears 11/15/2009 MICHAEL DORAN JEREMIAS L 388.70 Earache Both Ears 11/15/2009 MICHAEL DORAN JEREMIAS L 462 Sore Throat 11/15/2009 MCCJERMAINEEARJaxon DORAN, JEREMIAS L 380.10 Otitis Externa - Both Ears 11/15/2009 MICHAEL DORAN JEREMIAS L 388.70 Earache Both Ears 11/15/2009 MICHAEL DORAN JEREMIAS L 462 Sore Throat 11/15/2009 SANCHEZ DO, ELDA K 380.10 Otitis Externa - Both Ears 11/15/2009 SANCHEZ DO, ELDA K 388.70 Earache Both Ears 11/15/2009 SANCHEZ DO, ELDA K 462 Sore Throat 11/15/2009 OSVALDO RODRIGUEZ PSYD ANN L 380.10 Otitis Externa - Both Ears 11/15/2009 MICHAEL DORAN JEREMIAS L 388.70 Earache Both Ears 11/15/2009 OSVALDO RODRIGUEZ PSYD ANN L 462 Sore Throat 11/15/2009 MCCBULL DORAN JEREMIAS L 380.10 Otitis Externa - Both Ears 11/15/2009 OSVALDO RODRIGUEZ PSYD ANN L 388.70 Earache Both Ears 11/15/2009 OSVALDO RODRIGUEZ PSYD ANN L 462 Sore Throat 11/15/2009 SANCHEZ DO, ELDA K 380.10 Otitis Externa - Both Ears 11/15/2009 SANCHEZ DO, ELDA K 388.70 Earache Both Ears 11/15/2009 SANCHEZ DO, ELDA K 462 Sore Throat 11/15/2009 SANCHEZ DO, ELDA K 380.10 Otitis Externa - Both Ears 11/15/2009 SANCHEZ DO, ELDA K 388.70 Earache Both Ears 11/15/2009 SANCHEZ DO, ELDA K 462 Sore Throat 11/15/2009 SANCHEZ DO, ELDA K 380.10 Otitis Externa - Both Ears 11/15/2009 SANCHEZ DO, ELDA K 388.70 Earache Both Ears 11/15/2009 SANCHEZ DO, ELDA K 462 Sore Throat 11/15/2009 SANCHEZ DO, ELDA K 380.10 Otitis Externa - Both Ears 11/15/2009 SANCHEZ DO, ELDA K 388.70 Earache Both Ears 11/15/2009 SANCHEZ DO, ELDA K 462 Sore Throat 11/15/2009 MCCOSVALDO GOTTLIEB PSYD ANN L 380.10 Otitis Externa - Both Ears 11/15/2009 MCCLEEARY PSYD, JEREMIAS L 388.70 Earache Both Ears 11/15/2009 MCCLEEARJaxon PSYD, JEREMIAS L 462 Sore Throat 11/15/2009 SANCHEZ DO, ELDA K 380.10 Otitis Externa - Both Ears 11/15/2009 SANCHEZ DO, ELDA K 388.70 Earache Both Ears 11/15/2009 SANCHEZ DO, ELDA K 462 Sore Throat 11/15/2009 SANCHEZ DO, ELDA K 380.10 Otitis Externa - Both Ears 11/15/2009 SANCHEZ DO, ELDA K 388.70 Earache Both Ears 11/15/2009 SANCHEZ DO, ELDA K 462 Sore Throat 11/15/2009 MCCLEREGIS DORAN, JEREMIAS L 380.10 Otitis Externa - Both Ears 11/15/2009 OSVALDO RODRIGUEZ PSYD ANN L 388.70 Earache Both Ears 11/15/2009 MICHAEL DORAN, JEREMIAS L 462 Sore Throat 11/15/2009 SANCHEZ DO, ELDA K 380.10 Otitis Externa - Both Ears 11/15/2009 SANCHEZ DO, ELDA K 388.70 Earache Both Ears 11/15/2009 SANCHEZ DO, ELDA K 462 Sore Throat 03/28/2010 OSVALDO RODRIGUEZ PSYD ANN L 296.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 03/28/2010 OSVALDO RODRIGUEZ PSYD ANN L 780.99 Loss Of Pleasure From Usual Activities (anhedonia) 03/28/2010 TAVON RILEY APRN S 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 03/28/2010 TAVON RILEY APRN S 780.99 Loss Of Pleasure From Usual Activities (anhedonia) 03/28/2010 SANCHEZ DO ELDA K 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 03/28/2010 SANCHEZ DO, ELDA K 780.99 Loss Of Pleasure From Usual Activities (anhedonia) 03/28/2010 OSVLADO RODRIGUEZ PSYD ANN L 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 03/28/2010 OSVALDO RODRIGUEZ PSYD ANN L 780.99 Loss Of Pleasure From Usual Activities (anhedonia) 03/28/2010 ELDA SANCHEZ DO K 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 03/28/2010 SANCHEZ DO ELDA K 780.99 Loss Of Pleasure From Usual Activities (anhedonia) 03/28/2010 OSVALDO RODRIGUEZ PSYD ANN L 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 03/28/2010 OSVALDO RODRIGUEZ PSYD ANN L 780.99 Loss Of Pleasure From Usual Activities (anhedonia) 03/28/2010 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 03/28/2010 780.99 Loss Of Pleasure From Usual Activities (anhedonia) 03/28/2010 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 03/28/2010 780.99 Loss Of Pleasure From Usual Activities (anhedonia) 03/28/2010 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 03/28/2010 780.99 Loss Of Pleasure From Usual Activities (anhedonia) 03/28/2010 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 03/28/2010 780.99 Loss Of Pleasure From Usual Activities (anhedonia) 03/28/2010 SANCHEZ JESUS EMERYA K 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 03/28/2010 SANCHEZ DO ELDA K 780.99 Loss Of Pleasure From Usual Activities (anhedonia) 03/28/2010 JESUS SANCHEZ DOA K 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 03/28/2010 SANCHEZ DO ELDA K 780.99 Loss Of Pleasure From Usual Activities (anhedonia) 03/28/2010 EJSUS SANCHEZ DOA K 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 03/28/2010 SANCHEZ DO ELDA K 780.99 Loss Of Pleasure From Usual Activities (anhedonia) 03/28/2010 JAZMIN TECHNOLOGY AUDITOR, ROD A 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 03/28/2010 JAZMIN TECHNOLOGY AUDITOR, ROD A 780.99 Loss Of Pleasure From Usual Activities (anhedonia) 03/28/2010 OSVALDO RODRIGUEZ PSYD ANN L 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 03/28/2010 OSVALDO RODRIGUEZ PSYD ANN L 780.99 Loss Of Pleasure From Usual Activities (anhedonia) 03/28/2010 JESUS SANCHEZ DOA K 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 03/28/2010 SANCHEZ DO ELDA K 780.99 Loss Of Pleasure From Usual Activities (anhedonia) 03/28/2010 OSVALDO RODRIGUEZ PSYD ANN L 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 03/28/2010 MCCOSVALDO GOTTLIEB PSYD ANN L 780.99 Loss Of Pleasure From Usual Activities (anhedonia) 03/28/2010 OSVALDO RODRIGUEZ PSYD ANN L 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 03/28/2010 OSVALDO RODRIGUEZ PSYD ANN L 780.99 Loss Of Pleasure From Usual Activities (anhedonia) 03/28/2010 SANCHEZ DO ELDA K 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 03/28/2010 SANCHEZ DO ELDA K 780.99 Loss Of Pleasure From Usual Activities (anhedonia) 03/28/2010 OSVALDO RODRIGUEZ PSYD ANN L 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 03/28/2010 OSVALDO RODRIGUEZ PSYD ANN L 780.99 Loss Of Pleasure From Usual Activities (anhedonia) 03/28/2010 OSVALDO RODRIGUEZ PSYD ANN L 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 03/28/2010 OSVALDO RODRIGUEZ PSYD ANN L 780.99 Loss Of Pleasure From Usual Activities (anhedonia) 03/28/2010 SANCHEZ DO ELDA K 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 03/28/2010 SANCHEZ DO ELDA K 780.99 Loss Of Pleasure From Usual Activities (anhedonia) 03/28/2010 SANCHEZ DO ELDA K 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 03/28/2010 SANCHEZ DO ELDA K 780.99 Loss Of Pleasure From Usual Activities (anhedonia) 03/28/2010 SANCHEZ DO ELDA K 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 03/28/2010 SANCHEZ DO, ELDA K 780.99 Loss Of Pleasure From Usual Activities (anhedonia) 03/28/2010 SANCHEZ DO, ELDA K 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 03/28/2010 SANCHEZ DO, ELDA K 780.99 Loss Of Pleasure From Usual Activities (anhedonia) 03/28/2010 OSVALDO RODRIGUEZ PSYD ANN L 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 03/28/2010 JESUS SANCHEZ DOA K 780.99 Loss Of Pleasure From Usual Activities (anhedonia) 10/24/2010 OSVALDO RODRIGUEZ PSYD L 401.1 HYPERTENSION, BENIGN ESSENTIAL 10/24/2010 OSVALDO RODRIGUEZ PSYD L 780.79 Malaise And Fatigue 10/24/2010 OSVALDO CHRISTENSENN TAVON S 401.1 HYPERTENSION, BENIGN ESSENTIAL 10/24/2010 OSVALDO INGRAM TAVON S 780.79 Malaise And Fatigue 10/24/2010 ELDA SANCHEZ DO K 401.1 HYPERTENSION, BENIGN ESSENTIAL 10/24/2010 ELDA SANCHEZ DO K 780.79 Malaise And Fatigue 10/24/2010 OSVALDO RODRIGUEZ PSYD L 401.1 HYPERTENSION, BENIGN ESSENTIAL 10/24/2010 OSVALDO RODRIGUEZ PSYD L 780.79 Malaise And Fatigue 10/24/2010 ELDA SANCHEZ DO K 401.1 HYPERTENSION, BENIGN ESSENTIAL 10/24/2010 ELDA SANCHEZ DO K 780.79 Malaise And Fatigue 10/24/2010 OSVALDO RODRIGUEZ PSYD ANN L 401.1 HYPERTENSION, BENIGN ESSENTIAL 10/24/2010 OSVALDO RODRIGUEZ PSYD L 780.79 Malaise And Fatigue 10/24/2010 401.1 HYPERTENSION, BENIGN ESSENTIAL 10/24/2010 780.79 Malaise And Fatigue 10/24/2010 401.1 HYPERTENSION, BENIGN ESSENTIAL 10/24/2010 780.79 Malaise And Fatigue 10/24/2010 401.1 HYPERTENSION, BENIGN ESSENTIAL 10/24/2010 780.79 Malaise And Fatigue 10/24/2010 401.1 HYPERTENSION, BENIGN ESSENTIAL 10/24/2010 780.79 Malaise And Fatigue 10/24/2010 SANCHEZ DO, ELDA K 401.1 HYPERTENSION, BENIGN ESSENTIAL 10/24/2010 SANCHEZ DO, ELDA K 780.79 Malaise And Fatigue 10/24/2010 SANCHEZ DO, ELDA K 401.1 HYPERTENSION, BENIGN ESSENTIAL 10/24/2010 SANCHEZ DO, ELDA K 780.79 Malaise And Fatigue 10/24/2010 SANCHEZ DO, ELDA K 401.1 HYPERTENSION, BENIGN ESSENTIAL 10/24/2010 SANCHEZ DO, ELDA K 780.79 Malaise And Fatigue 10/24/2010 JAZMIN TECHNOLOGY AUDITOR, ROD A 401.1 HYPERTENSION, BENIGN ESSENTIAL 10/24/2010 JAZMIN TECHNOLOGY AUDITOR, ROD A 780.79 Malaise And Fatigue 10/24/2010 OSVALDO RODRIGUEZ PSYD ANN L 401.1 HYPERTENSION, BENIGN ESSENTIAL 10/24/2010 OSVALDO RODRIGUEZ PSYD ANN L 780.79 Malaise And Fatigue 10/24/2010 SANCHEZ DO, ELDA K 401.1 HYPERTENSION, BENIGN ESSENTIAL 10/24/2010 SANCHEZ DO, ELDA K 780.79 Malaise And Fatigue 10/24/2010 OSVALDO RODRIGUEZ PSYD ANN L 401.1 HYPERTENSION, BENIGN ESSENTIAL 10/24/2010 MICHAEL DORAN JEREMIAS L 780.79 Malaise And Fatigue 10/24/2010 OSVALDO RODRIGUEZ PSYD ANN L 401.1 HYPERTENSION, BENIGN ESSENTIAL 10/24/2010 MICHAEL DORAN JEREMIAS L 780.79 Malaise And Fatigue 10/24/2010 SANCHEZ DO, ELDA K 401.1 HYPERTENSION, BENIGN ESSENTIAL 10/24/2010 SANCHEZ DO ELDA K 780.79 Malaise And Fatigue 10/24/2010 MICHAEL DORAN JEREMIAS L 401.1 HYPERTENSION, BENIGN ESSENTIAL 10/24/2010 MICHAEL DORAN JEREMIAS L 780.79 Malaise And Fatigue 10/24/2010 MICHAEL DORAN JEREMIAS L 401.1 HYPERTENSION, BENIGN ESSENTIAL 10/24/2010 MICHAEL DORAN JEREMIAS L 780.79 Malaise And Fatigue 10/24/2010 SANCHEZ DO, ELDA K 401.1 HYPERTENSION, BENIGN ESSENTIAL 10/24/2010 SANCHEZ DO, ELDA K 780.79 Malaise And Fatigue 10/24/2010 SANCHEZ DO, ELDA K 401.1 HYPERTENSION, BENIGN ESSENTIAL 10/24/2010 SANCHEZ DO, ELDA K 780.79 Malaise And Fatigue 10/24/2010 SANCHEZ DO, ELDA K 401.1 HYPERTENSION, BENIGN ESSENTIAL 10/24/2010 SANCHEZ DO, ELDA K 780.79 Malaise And Fatigue 10/24/2010 SANCHEZ DO, ELDA K 401.1 HYPERTENSION, BENIGN ESSENTIAL 10/24/2010 SANCHEZ DO, ELDA K 780.79 Malaise And Fatigue 10/24/2010 OSVALDO RODRIGUEZ PSYD ANN L 401.1 HYPERTENSION, BENIGN ESSENTIAL 10/24/2010 OSVALDO RODRIGUEZ PSYD ANN L 780.79 Malaise And Fatigue 10/24/2010 SANCHEZ DO, ELDA K 401.1 HYPERTENSION, BENIGN ESSENTIAL 10/24/2010 SANCHEZ DO, ELDA K 780.79 Malaise And Fatigue 10/24/2010 SANCHEZ DO, ELDA K 401.1 HYPERTENSION, BENIGN ESSENTIAL 10/24/2010 SANCHEZ DO, ELDA K 780.79 Malaise And Fatigue 10/24/2010 OSVALDO RODRIGUEZ PSYD ANN L 401.1 HYPERTENSION, BENIGN ESSENTIAL 10/24/2010 OSVALDO RODRIGUEZ PSYD ANN L 780.79 Malaise And Fatigue 10/24/2010 SANCHEZ DO, ELDA K 401.1 HYPERTENSION, BENIGN ESSENTIAL 10/24/2010 SANCHEZ DO, ELDA K 780.79 Malaise And Fatigue 11/07/2010 OSVALDO RODRIGUEZ PSYD ANN L 701.9 Unspecified Hypertrophic And Atrophic Conditions Of Skin 11/07/2010 TAVON RILEY APRN 701.9 Unspecified Hypertrophic And Atrophic Conditions Of Skin 11/07/2010 SANCHEZ DO ELDA K 701.9 Unspecified Hypertrophic And Atrophic Conditions Of Skin 11/07/2010 OSVALDO RODRIGUEZ PSYD ANN L 701.9 Unspecified Hypertrophic And Atrophic Conditions Of Skin 11/07/2010 SANCHEZ DO ELDA K 701.9 Unspecified Hypertrophic And Atrophic Conditions Of Skin 11/07/2010 OSVALDO RODRIGUEZ PSYD ANN L 701.9 Unspecified Hypertrophic And Atrophic Conditions Of Skin 11/07/2010 701.9 Unspecified Hypertrophic And Atrophic Conditions Of Skin 11/07/2010 701.9 Unspecified Hypertrophic And Atrophic Conditions Of Skin 11/07/2010 701.9 Unspecified Hypertrophic And Atrophic Conditions Of Skin 11/07/2010 701.9 Unspecified Hypertrophic And Atrophic Conditions Of Skin 11/07/2010 SANCHEZ DO, ELDA K 701.9 Unspecified Hypertrophic And Atrophic Conditions Of Skin 11/07/2010 SANCHEZ DO, ELDA K 701.9 Unspecified Hypertrophic And Atrophic Conditions Of Skin 11/07/2010 SANCHEZ DO, ELDA K 701.9 Unspecified Hypertrophic And Atrophic Conditions Of Skin 11/07/2010 ROD WU APRN 701.9 Unspecified Hypertrophic And Atrophic Conditions Of Skin 11/07/2010 OSVALDO RODRIGUEZ PSYD ANN L 701.9 Unspecified Hypertrophic And Atrophic Conditions Of Skin 11/07/2010 SANCHEZ DO, ELDA K 701.9 Unspecified Hypertrophic And Atrophic Conditions Of Skin 11/07/2010 OSVALDO RODRIGUEZ PSYD ANN L 701.9 Unspecified Hypertrophic And Atrophic Conditions Of Skin 11/07/2010 OSVALDO RODRIGUEZ PSYD ANN L 701.9 Unspecified Hypertrophic And Atrophic Conditions Of Skin 11/07/2010 SANCHEZ DO, ELDA K 701.9 Unspecified Hypertrophic And Atrophic Conditions Of Skin 11/07/2010 OSVALDO RODRIGUEZ PSYD ANN L 701.9 Unspecified Hypertrophic And Atrophic Conditions Of Skin 11/07/2010 OSVALDO RODRIGUEZ PSYD ANN L 701.9 Unspecified Hypertrophic And Atrophic Conditions Of Skin 11/07/2010 SANCHEZ DO, ELDA K 701.9 Unspecified Hypertrophic And Atrophic Conditions Of Skin 11/07/2010 SANCHEZ DO, ELDA K 701.9 Unspecified Hypertrophic And Atrophic Conditions Of Skin 11/07/2010 SANCHEZ DO, ELDA K 701.9 Unspecified Hypertrophic And Atrophic Conditions Of Skin 11/07/2010 SANCHEZ DO, ELAD K 701.9 Unspecified Hypertrophic And Atrophic Conditions Of Skin 11/07/2010 OSVALDO RODRIGUEZ PSYD ANN L 701.9 Unspecified Hypertrophic And Atrophic Conditions Of Skin 11/07/2010 SANCHEZ DO, ELDA K 701.9 Unspecified Hypertrophic And Atrophic Conditions Of Skin 11/07/2010 SANCHEZ DO, ELDA K 701.9 Unspecified Hypertrophic And Atrophic Conditions Of Skin 11/07/2010 OSVALDO RODRIGUEZ PSYD ANN L 701.9 Unspecified Hypertrophic And Atrophic Conditions Of Skin 11/07/2010 SANCHEZ DO, ELDA K 701.9 Unspecified Hypertrophic And Atrophic Conditions Of Skin 02/12/2011 OSVALDO RODRIGUEZ PSYD ANN L 465.9 Upper Respiratory Infection 02/12/2011 TAVON RILEY APRN S 465.9 Upper Respiratory Infection 02/12/2011 SANCHEZ DO, ELDA K 465.9 Upper Respiratory Infection 02/12/2011 OSVALDO RODRIGUEZ PSYD ANN L 465.9 Upper Respiratory Infection 02/12/2011 SANCHEZ DO, ELDA K 465.9 Upper Respiratory Infection 02/12/2011 OSVALDO RODRIGUEZ PSYD ANN L 465.9 Upper Respiratory Infection 02/12/2011 465.9 Upper Respiratory Infection 02/12/2011 465.9 Upper Respiratory Infection 02/12/2011 465.9 Upper Respiratory Infection 02/12/2011 465.9 Upper Respiratory Infection 02/12/2011 SANCHEZ DO, ELDA K 465.9 Upper Respiratory Infection 02/12/2011 SANCHEZ DO, ELDA K 465.9 Upper Respiratory Infection 02/12/2011 SANCHEZ DO, ELDA K 465.9 Upper Respiratory Infection 02/12/2011 JAZMIN INGRAM ROD A 465.9 Upper Respiratory Infection 02/12/2011 OSVALDO RODRIGUEZ PSYD ANN L 465.9 Upper Respiratory Infection 02/12/2011 SANCHEZ DO, ELDA K 465.9 Upper Respiratory Infection 02/12/2011 OSVALDO RODRIGUEZ PSYD ANN L 465.9 Upper Respiratory Infection 02/12/2011 OSVALDO RODRIGUEZ PSYD ANN L 465.9 Upper Respiratory Infection 02/12/2011 SANCHEZ DO, ELAD K 465.9 Upper Respiratory Infection 02/12/2011 OSVALDO RODRIGUEZ PSYD ANN L 465.9 Upper Respiratory Infection 02/12/2011 OSVALDO RODRIGUEZ PSYD ANN L 465.9 Upper Respiratory Infection 02/12/2011 SANCHEZ DO, ELDA K 465.9 Upper Respiratory Infection 02/12/2011 SANCHEZ DO, ELDA K 465.9 Upper Respiratory Infection 02/12/2011 SANCHEZ DO, ELDA K 465.9 Upper Respiratory Infection 02/12/2011 SANCHEZ DO, ELDA K 465.9 Upper Respiratory Infection 02/12/2011 OSVALDO RODRIGUEZ PSYD ANN L 465.9 Upper Respiratory Infection 02/12/2011 SANCHEZ DO, ELDA K 465.9 Upper Respiratory Infection 02/12/2011 ELDA SANCHEZ DO 465.9 Upper Respiratory Infection 02/12/2011 OSVALDO RODRIGUEZ PSYD L 465.9 Upper Respiratory Infection 02/12/2011 ELDA SANCHEZ DO 465.9 Upper Respiratory Infection 08/28/2011 OSVALDO RODRIGUEZ PSYD L 296.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 RECURRENT SEVERE W/O PSYCHOTIC BEHAVIOR 08/28/2011 TAVON RILEY APRN 296.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 RECURRENT SEVERE W/O PSYCHOTIC BEHAVIOR 08/28/2011 ELDA SANCHEZ DO K 296.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 RECURRENT SEVERE W/O PSYCHOTIC BEHAVIOR 08/28/2011 OSVALDO RODRIGUEZ PSYD L 296.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 RECURRENT SEVERE W/O PSYCHOTIC BEHAVIOR 08/28/2011 ELDA SANCHEZ DO K 296.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 RECURRENT SEVERE W/O PSYCHOTIC BEHAVIOR 08/28/2011 OSVALDO RODRIGUEZ PSYD L 296.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 RECURRENT SEVERE W/O PSYCHOTIC BEHAVIOR 08/28/2011 296.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 RECURRENT SEVERE W/O PSYCHOTIC BEHAVIOR 08/28/2011 296.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 RECURRENT SEVERE W/O PSYCHOTIC BEHAVIOR 08/28/2011 296.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 RECURRENT SEVERE W/O PSYCHOTIC BEHAVIOR 08/28/2011 296.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 RECURRENT SEVERE W/O PSYCHOTIC BEHAVIOR 08/28/2011 ELDA SANCHEZ DO K 296.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 RECURRENT SEVERE W/O PSYCHOTIC BEHAVIOR 08/28/2011 ELDA SANCHEZ DO K 296.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 RECURRENT SEVERE W/O PSYCHOTIC BEHAVIOR 08/28/2011 ELDA SANCHEZ DO K 296.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 RECURRENT SEVERE W/O PSYCHOTIC BEHAVIOR 08/28/2011 ROD WU APRN 296.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 RECURRENT SEVERE W/O PSYCHOTIC BEHAVIOR 08/28/2011 OSVALDO RODRIGUEZ PSYD L 296.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 RECURRENT SEVERE W/O PSYCHOTIC BEHAVIOR 08/28/2011 ELDA SANCHEZ DO K 296.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 RECURRENT SEVERE W/O PSYCHOTIC BEHAVIOR 08/28/2011 OSVALDO RODRIGUEZ PSYD L 296.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 RECURRENT SEVERE W/O PSYCHOTIC BEHAVIOR 08/28/2011 OSVALDO RODRIGUEZ PSYD ANN L 296.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 RECURRENT SEVERE W/O PSYCHOTIC BEHAVIOR 08/28/2011 ELDA SANCHEZ DO K 296.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 RECURRENT SEVERE W/O PSYCHOTIC BEHAVIOR 08/28/2011 OSVALDO RODRIGUEZ PSYD 296.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 RECURRENT SEVERE W/O PSYCHOTIC BEHAVIOR 08/28/2011 OSVALDO RODRIGUEZ PSYD 296.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 RECURRENT SEVERE W/O PSYCHOTIC BEHAVIOR 08/28/2011 SANCHEZ DO ELDA K 296.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 RECURRENT SEVERE W/O PSYCHOTIC BEHAVIOR 08/28/2011 SANCHEZ DO, ELDA K 296.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 RECURRENT SEVERE W/O PSYCHOTIC BEHAVIOR 08/28/2011 SANCHEZ DO ELDA K 296.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 RECURRENT SEVERE W/O PSYCHOTIC BEHAVIOR 08/28/2011 SANCHEZ DO, ELDA K 296.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 RECURRENT SEVERE W/O PSYCHOTIC BEHAVIOR 08/28/2011 OSVALDO RODRIGUEZ PSYD L 296.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 RECURRENT SEVERE W/O PSYCHOTIC BEHAVIOR 08/28/2011 SANCHEZ DO, ELDA K 296.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 RECURRENT SEVERE W/O PSYCHOTIC BEHAVIOR 08/28/2011 SANCHEZ DO, ELDA K 296.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 RECURRENT SEVERE W/O PSYCHOTIC BEHAVIOR 08/28/2011 OSVALDO RODRIGUEZ PSYD L 296.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 RECURRENT SEVERE W/O PSYCHOTIC BEHAVIOR 08/28/2011 SANCHEZ DO, ELDA K 296.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 RECURRENT SEVERE W/O PSYCHOTIC BEHAVIOR 10/01/2011 OSVALDO RODRIGUEZ PSYD V58.69 LONG-TERM (CURRENT) USE OF OTHER MEDICATIONS 10/01/2011 TAVON RILEY APRN V58.69 Long-term (current) Use Of Other Medications 10/01/2011 ELDA SANCHEZ DO V58.69 Long-term (current) Use Of Other Medications 10/01/2011 OSVALDO RODRIGUEZ PSYD V58.69 Long-term (current) Use Of Other Medications 10/01/2011 ELDA SANCHEZ DO V58.69 Long-term (current) Use Of Other Medications 10/01/2011 OSVALDO RODRIGUEZ PSYD V58.69 Long-term (current) Use Of Other Medications 10/01/2011 V58.69 Long-term ( current) Use Of Other Medications 10/01/2011 V58.69 Long-term ( current) Use Of Other Medications 10/01/2011 V58.69 Long-term ( current) Use Of Other Medications 10/01/2011 V58.69 Long-term ( current) Use Of Other Medications 10/01/2011 SANCHEZ DO ELDA K V58.69 Long-term (current) Use Of Other Medications 10/01/2011 SANCHEZ DO ELDA K V58.69 Long-term (current) Use Of Other Medications 10/01/2011 SANCHEZ DO, ELDA K V58.69 Long-term (current) Use Of Other Medications 10/01/2011 ROD WU APRN V58.69 Long-term (current) Use Of Other Medications 10/01/2011 OSVALDO RODRIGUEZ PSYD L V58.69 Long-term (current) Use Of Other Medications 10/01/2011 LAURA EMERY ELDA K V58.69 Long-term (current) Use Of Other Medications 10/01/2011 OSVALDO RODRIGUEZ PSYD L V58.69 Long-term (current) Use Of Other Medications 10/01/2011 OSVALDO RODRIGUEZ PSYD L V58.69 Long-term (current) Use Of Other Medications 10/01/2011 JESUS SANCHEZ DOA K V58.69 Long-term (current) Use Of Other Medications 10/01/2011 OSVALDO RODRIGUEZ PSYD L V58.69 Long-term (current) Use Of Other Medications 10/01/2011 OSVALDO RODRIGUEZ PSYD L V58.69 Long-term (current) Use Of Other Medications 10/01/2011 LAURA EMERY ELDA K V58.69 Long-term (current) Use Of Other Medications 10/01/2011 LAURA EMERY ELDA K V58.69 Long-term (current) Use Of Other Medications 10/01/2011 LAURA EMERY ELDA K V58.69 Long-term (current) Use Of Other Medications 10/01/2011 SANCHEZ DO ELDA K V58.69 Long-term (current) Use Of Other Medications 10/01/2011 OSVALDO RODRIGUEZ PSYD L V58.69 Long-term (current) Use Of Other Medications 10/01/2011 SANCHEZ DO ELDA K V58.69 Long-term (current) Use Of Other Medications 10/01/2011 SANCHEZ DO ELDA K V58.69 Long-term (current) Use Of Other Medications 10/01/2011 OSVALDO RODRIGUEZ PSYD L V58.69 Long-term (current) Use Of Other Medications 10/01/2011 ELDA SANCHEZ DO V58.69 Long-term (current) Use Of Other Medications 10/30/2011 Ot 780.4 DIZZINESS AND GIDDINESS 10/31/2011 OSVALDO RODRIGUEZ PSYD 300.02 AN GEN ANXIETY 10/31/2011 TAVON RILEY APRN 300.02 AN GEN ANXIETY 10/31/2011 ELDA SANCHEZ DO 300.02 AN GEN ANXIETY 10/31/2011 OSVALDO RODRIGUEZ PSYD 300.02 AN GEN ANXIETY 10/31/2011 ELDA SANCHEZ DO 300.02 AN GEN ANXIETY 10/31/2011 OSVALDO RODRIGUEZ PSYD 300.02 AN GEN ANXIETY 10/31/2011 300.02 AN GEN ANXIETY 10/31/2011 300.02 AN GEN ANXIETY 10/31/2011 300.02 AN GEN ANXIETY 10/31/2011 300.02 AN GEN ANXIETY 10/31/2011 ELDA SANCHEZ DO K 300.02 AN GEN ANXIETY 10/31/2011 ELDA SANCHEZ DO K 300.02 AN GEN ANXIETY 10/31/2011 ELDA SANCHEZ DO K 300.02 AN GEN ANXIETY 10/31/2011 ROD WU APRN A 300.02 AN GEN ANXIETY 10/31/2011 OSVALDO RODRIGUEZ PSYD 300.02 AN GEN ANXIETY 10/31/2011 ELDA SANCHEZ DO K 300.02 AN GEN ANXIETY 10/31/2011 OSVALDO RODRIGUEZ PSYD 300.02 AN GEN ANXIETY 10/31/2011 OSVALDO RODRIGUEZ PSYD 300.02 AN GEN ANXIETY 10/31/2011 ELDA SANCHEZ DO K 300.02 AN GEN ANXIETY 10/31/2011 OSVALDO RODRIGUEZ PSYD 300.02 AN GEN ANXIETY 10/31/2011 OSVALDO RODRIGUEZ PSYD 300.02 AN GEN ANXIETY 10/31/2011 ELDA SANCHEZ DO K 300.02 AN GEN ANXIETY 10/31/2011 ELDA SANCHEZ DO K 300.02 AN GEN ANXIETY 10/31/2011 ELDA SANCHEZ DO K 300.02 AN GEN ANXIETY 10/31/2011 ELDA SANCHEZ DO K 300.02 AN GEN ANXIETY 10/31/2011 OSVALDO RODRIGUEZ PSYD 300.02 AN GEN ANXIETY 10/31/2011 ELDA SANCHEZ DO K 300.02 AN GEN ANXIETY 10/31/2011 JESUS SANCHEZ DOA K 300.02 AN GEN ANXIETY 10/31/2011 OSVALDO RODRIGUEZ PSYD L 300.02 AN GEN ANXIETY 10/31/2011 ELDA SANCHEZ DO K 300.02 AN GEN ANXIETY 12/06/2011 OSVALDO RODRIGUEZ PSYD L 296.32 MO DEPRESSIVE RECURRENT MODERATE 12/06/2011 TAVON RILEY APRN S 296.32 MO DEPRESSIVE RECURRENT MODERATE 12/06/2011 JESUS SANCHEZ DOA K 296.32 MO DEPRESSIVE RECURRENT MODERATE 12/06/2011 OSVALDO RODRIGUEZ PSYD L 296.32 MO DEPRESSIVE RECURRENT MODERATE 12/06/2011 JESUS SANCHEZ DOA K 296.32 MO DEPRESSIVE RECURRENT MODERATE 12/06/2011 OSVALDO RODRIGUEZ PSYD L 296.32 MO DEPRESSIVE RECURRENT MODERATE 12/06/2011 296.32 MO DEPRESSIVE RECURRENT MODERATE 12/06/2011 296.32 MO DEPRESSIVE RECURRENT MODERATE 12/06/2011 296.32 MO DEPRESSIVE RECURRENT MODERATE 12/06/2011 296.32 MO DEPRESSIVE RECURRENT MODERATE 12/06/2011 JESUS SANCHEZ DOA K 296.32 MO DEPRESSIVE RECURRENT MODERATE 12/06/2011 JESUS SANCHEZ DOA K 296.32 MO DEPRESSIVE RECURRENT MODERATE 12/06/2011 SANCHEZ JESUS EMERYA K 296.32 MO DEPRESSIVE RECURRENT MODERATE 12/06/2011 ROD WU APRN A 296.32 MO DEPRESSIVE RECURRENT MODERATE 12/06/2011 OSVALDO RODRIGUEZ PSYD L 296.32 MO DEPRESSIVE RECURRENT MODERATE 12/06/2011 JESUS SANCHEZ DOA K 296.32 MO DEPRESSIVE RECURRENT MODERATE 12/06/2011 OSVALDO RODRIGUEZ PSYD L 296.32 MO DEPRESSIVE RECURRENT MODERATE 12/06/2011 OSVALDO RODRIGUEZ PSYD L 296.32 MO DEPRESSIVE RECURRENT MODERATE 12/06/2011 JESUS SANCHEZ DOA K 296.32 MO DEPRESSIVE RECURRENT MODERATE 12/06/2011 OSVALDO RODRIGUEZ PSYD L 296.32 MO DEPRESSIVE RECURRENT MODERATE 12/06/2011 OSVALDO RODRIGUEZ PSYD L 296.32 MO DEPRESSIVE RECURRENT MODERATE 12/06/2011 JESUS SANCHEZ DOA K 296.32 MO DEPRESSIVE RECURRENT MODERATE 12/06/2011 SANCHEZ DO, ELDA K 296.32 MO DEPRESSIVE RECURRENT MODERATE 12/06/2011 SANCHEZ DO ELDA K 296.32 MO DEPRESSIVE RECURRENT MODERATE 12/06/2011 SANCHEZ DO ELDA K 296.32 MO DEPRESSIVE RECURRENT MODERATE 12/06/2011 OSVALDO RODRIGUEZ PSYD L 296.32 MO DEPRESSIVE RECURRENT MODERATE 12/06/2011 SANCHEZ DOJESUSA K 296.32 MO DEPRESSIVE RECURRENT MODERATE 12/06/2011 SANCHEZ JESUS EMERYA K 296.32 MO DEPRESSIVE RECURRENT MODERATE 12/06/2011 OSVALDO RODRIGUEZ PSYD ANN L 296.32 MO DEPRESSIVE RECURRENT MODERATE 12/06/2011 SANCHEZ DOJESUSA K 296.32 MO DEPRESSIVE RECURRENT MODERATE 12/10/2011 OSVALDO RODRIGUEZ PSYD L 461.9 Sinusitis Acute 12/10/2011 TAOVN RILEY APRN 461.9 Sinusitis Acute 12/10/2011 ELDA SANCHEZ DO K 461.9 Sinusitis Acute 12/10/2011 OSVALDO RODRIGUEZ PSYD L 461.9 Sinusitis Acute 12/10/2011 ELDA SANCHEZ DO K 461.9 Sinusitis Acute 12/10/2011 OSVALDO RODRIGUEZ PSYD ANN L 461.9 Sinusitis Acute 12/10/2011 461.9 Sinusitis Acute 12/10/2011 461.9 Sinusitis Acute 12/10/2011 461.9 Sinusitis Acute 12/10/2011 461.9 Sinusitis Acute 12/10/2011 ELDA SANCHEZ DO K 461.9 Sinusitis Acute 12/10/2011 JESUS SACNHEZ DOA K 461.9 Sinusitis Acute 12/10/2011 SANCHEZ JESUS EMERYA K 461.9 Sinusitis Acute 12/10/2011 ROD WU APRN 461.9 Sinusitis Acute 12/10/2011 OSVALDO RODRIGUEZ PSYD L 461.9 Sinusitis Acute 12/10/2011 SANCHEZ ELDA EMERY K 461.9 Sinusitis Acute 12/10/2011 OSVALDO RODRIGUEZ PSYD ANN L 461.9 Sinusitis Acute 12/10/2011 OSVALDO RODRIGUEZ PSYD ANN L 461.9 Sinusitis Acute 12/10/2011 ELDA SANCHEZ DO K 461.9 Sinusitis Acute 12/10/2011 OSVALDO RODRIGUEZ PSYD L 461.9 Sinusitis Acute 12/10/2011 OSVALDO RODRIGUEZ PSYD L 461.9 Sinusitis Acute 12/10/2011 SANCHEZ DO ELDA K 461.9 Sinusitis Acute 12/10/2011 SANCHEZ DO, ELDA K 461.9 Sinusitis Acute 12/10/2011 SANCHEZ DO, ELDA K 461.9 Sinusitis Acute 12/10/2011 SANCHEZ DO, ELDA K 461.9 Sinusitis Acute 12/10/2011 OSVALDO RODRIGUEZ PSYD ANN L 461.9 Sinusitis Acute 12/10/2011 SANCHEZ DO ELDA K 461.9 Sinusitis Acute 12/10/2011 SANCHEZ DO ELDA K 461.9 Sinusitis Acute 12/10/2011 OSVALDO RODRIGUEZ PSYD L 461.9 Sinusitis Acute 12/10/2011 SANCHEZ DO ELDA K 461.9 Sinusitis Acute 01/02/2012 OSVALDO RODRIGUEZ PSYD L 296.89 MO BIPOLAR II 01/02/2012 TAVON RILEY APRN 296.89 MO BIPOLAR II 01/02/2012 SANCHEZ DOEJSUSA K 296.89 MO BIPOLAR II 01/02/2012 OSVALDO RODRIGUEZ PSYD L 296.89 MO BIPOLAR II 01/02/2012 SANCHEZ DOJESUSA K 296.89 MO BIPOLAR II 01/02/2012 OSVALDO RODRIGUEZ PSYD L 296.89 MO BIPOLAR II 01/02/2012 296.89 MO BIPOLAR II 01/02/2012 296.89 MO BIPOLAR II 01/02/2012 296.89 MO BIPOLAR II 01/02/2012 296.89 MO BIPOLAR II 01/02/2012 SANCHEZ DO ELDA K 296.89 MO BIPOLAR II 01/02/2012 SANCHEZ DO ELDA K 296.89 MO BIPOLAR II 01/02/2012 SANCHEZ DO ELDA K 296.89 MO BIPOLAR II 01/02/2012 ROD WU APRN 296.89 MO BIPOLAR II 01/02/2012 OSVALDO RODRIGUEZ PSYD ANN L 296.89 MO BIPOLAR II 01/02/2012 SANCHEZ DO ELDA K 296.89 MO BIPOLAR II 01/02/2012 OSVALDO RODRIGUEZ PSYD ANN L 296.89 MO BIPOLAR II 01/02/2012 OSVALDO RODRIGUEZ PSYD L 296.89 MO BIPOLAR II 01/02/2012 SANCHEZ DO, ELDA K 296.89 MO BIPOLAR II 01/02/2012 OSVALDO RODRIGUEZ PSYD L 296.89 MO BIPOLAR II 01/02/2012 OSVALDO RODRIGUEZ PSYD L 296.89 MO BIPOLAR II 01/02/2012 SANCHEZ DO, ELDA K 296.89 MO BIPOLAR II 01/02/2012 SANCHEZ DO, ELDA K 296.89 MO BIPOLAR II 01/02/2012 SANCHEZ DO, ELDA K 296.89 MO BIPOLAR II 01/02/2012 SANCHEZ DO, ELDA K 296.89 MO BIPOLAR II 01/02/2012 OSVALDO RODRIGUEZ PSYD L 296.89 MO BIPOLAR II 01/02/2012 SANCHEZ DO, ELDA K 296.89 MO BIPOLAR II 01/02/2012 SANCHEZ DO, ELDA K 296.89 MO BIPOLAR II 01/02/2012 OSVALDO RODRIGUEZ PSYD L 296.89 MO BIPOLAR II 01/02/2012 SANCHEZ DO, ELDA K 296.89 MO BIPOLAR II 02/11/2012 OSVALDO RODRIGUEZ PSYD L 372.00 ACUTE CONJUNCTIVITIS UNSPECIFIED 02/11/2012 TAVON RILEY APRN 372.00 Acute Conjunctivitis Unspecified 02/11/2012 SANCHEZ DO ELDA K 372.00 Acute Conjunctivitis Unspecified 02/11/2012 OSVALDO RODRIGUEZ PSYD L 372.00 Acute Conjunctivitis Unspecified 02/11/2012 SANCHEZ DO ELDA K 372.00 Acute Conjunctivitis Unspecified 02/11/2012 OSVALDO RODRIGUEZ PSYD L 372.00 Acute Conjunctivitis Unspecified 02/11/2012 372.00 Acute Conjunctivitis Unspecified 02/11/2012 372.00 Acute Conjunctivitis Unspecified 02/11/2012 372.00 Acute Conjunctivitis Unspecified 02/11/2012 372.00 Acute Conjunctivitis Unspecified 02/11/2012 SANCHEZ DO ELDA K 372.00 Acute Conjunctivitis Unspecified 02/11/2012 SANCHEZ DO, ELDA K 372.00 Acute Conjunctivitis Unspecified 02/11/2012 SANCHEZ DO, ELDA K 372.00 Acute Conjunctivitis Unspecified 02/11/2012 JAZMIN TECHNOLOGY AUDITOR, ROD A 372.00 Acute Conjunctivitis Unspecified 02/11/2012 OSVALDO RODRIGUEZ PSYD L 372.00 Acute Conjunctivitis Unspecified 02/11/2012 SANCHEZ DO, ELDA K 372.00 Acute Conjunctivitis Unspecified 02/11/2012 OSVALDO RODRIGUEZ PSYD L 372.00 Acute Conjunctivitis Unspecified 02/11/2012 OSVALDO ORDRIGUEZ PSYD L 372.00 Acute Conjunctivitis Unspecified 02/11/2012 SANCHEZ DO, ELDA K 372.00 Acute Conjunctivitis Unspecified 02/11/2012 OSVALDO RODRIGUEZ PSYD L 372.00 Acute Conjunctivitis Unspecified 02/11/2012 OSVALDO RODRIGUEZ PSYD ANN L 372.00 Acute Conjunctivitis Unspecified 02/11/2012 SANCHEZ DO, ELDA K 372.00 Acute Conjunctivitis Unspecified 02/11/2012 SANCHEZ DO, ELDA K 372.00 Acute Conjunctivitis Unspecified 02/11/2012 SANCHEZ DO, ELDA K 372.00 Acute Conjunctivitis Unspecified 02/11/2012 SANCHEZ DO, ELDA K 372.00 Acute Conjunctivitis Unspecified 02/11/2012 OSVALDO RODRIGUEZ PSYD L 372.00 Acute Conjunctivitis Unspecified 02/11/2012 SANCHEZ DO, ELDA K 372.00 Acute Conjunctivitis Unspecified 02/11/2012 SANCHEZ DO, ELDA K 372.00 Acute Conjunctivitis Unspecified 02/11/2012 OSVALDO RODRIGUEZ PSYD L 372.00 Acute Conjunctivitis Unspecified 02/11/2012 SANCHEZ DO, ELDA K 372.00 Acute Conjunctivitis Unspecified 04/21/2012 OSVALDO RODRIGUEZ PSYD L 276.51 DEHYDRATION 04/21/2012 OSVALDO RODRIGUEZ PSYD L V70.0 ROUTINE GENERAL MEDICAL EXAMINATION AT A HEALTH CARE FACILITY 04/21/2012 TAVON RILEY APRN S 276.51 Dehydration 04/21/2012 TAVON RILEY APRN S V70.0 Routine General Medical Examination At A Health Care Facility 04/21/2012 SANCHEZ DO ELDA K 276.51 Dehydration 04/21/2012 SANCHEZ DO, ELDA K V70.0 Routine General Medical Examination At A Health Care Facility 04/21/2012 OSVALDO RODRIGUEZ PSYD L 276.51 Dehydration 04/21/2012 OSVALDO RODRIGUEZ PSYD L V70.0 Routine General Medical Examination At A Health Care Facility 04/21/2012 SANCHEZ DO, ELDA K 276.51 Dehydration 04/21/2012 SANCHEZ DO, ELDA K V70.0 Routine General Medical Examination At A Health Care Facility 04/21/2012 OSVALDO RODRIGUEZ PSYD 276.51 Dehydration 04/21/2012 OSVALDO RODRIGUEZ PSYD L V70.0 Routine General Medical Examination At A Health Care Facility 04/21/2012 276.51 Dehydration 04/21/2012 V70.0 Routine General Medical Examination At A Health Care Facility 04/21/2012 276.51 Dehydration 04/21/2012 V70.0 Routine General Medical Examination At A Health Care Facility 04/21/2012 276.51 Dehydration 04/21/2012 V70.0 Routine General Medical Examination At A Health Care Facility 04/21/2012 276.51 Dehydration 04/21/2012 V70.0 Routine General Medical Examination At A Health Care Facility 04/21/2012 SANCHEZ DO, ELDA K 276.51 Dehydration 04/21/2012 SANCHEZ DO, ELDA K V70.0 Routine General Medical Examination At A Health Care Facility 04/21/2012 SANCHEZ DO, ELDA K 276.51 Dehydration 04/21/2012 SANCHEZ DO, ELDA K V70.0 Routine General Medical Examination At A Health Care Facility 04/21/2012 SANCHEZ DO, ELDA K 276.51 Dehydration 04/21/2012 SANCHEZ DO, ELDA K V70.0 Routine General Medical Examination At A Health Care Facility 04/21/2012 ROD WU APRN A 276.51 Dehydration 04/21/2012 ROD WU APRN A V70.0 Routine General Medical Examination At A Health Care Facility 04/21/2012 OSVALDO RODRIGUEZ PSYD 276.51 Dehydration 04/21/2012 OSVALDO RODRIGUEZ PSYD V70.0 Routine General Medical Examination At A Health Care Facility 04/21/2012 SANCHEZ DO ELDA K 276.51 Dehydration 04/21/2012 SANCHEZ DO ELDA K V70.0 Routine General Medical Examination At A Health Care Facility 04/21/2012 OSVALDO RODRIGUEZ PSYD 276.51 Dehydration 04/21/2012 OSVALDO RODRIGUEZ PSYD V70.0 Routine General Medical Examination At A Health Care Facility 04/21/2012 OSVALDO RODRIGUEZ PSYD L 276.51 Dehydration 04/21/2012 OSVALDO RODRIGUEZ PSYD L V70.0 Routine General Medical Examination At A Health Care Facility 04/21/2012 SANCHEZ DO, ELDA K 276.51 Dehydration 04/21/2012 SANCHEZ DO, ELDA K V70.0 Routine General Medical Examination At A Health Care Facility 04/21/2012 OSVALDO RODRIGUEZ PSYD L 276.51 Dehydration 04/21/2012 OSVALDO RODRIGUEZ PSYD L V70.0 Routine General Medical Examination At A Health Care Facility 04/21/2012 OSVALDO RODRIGUEZ PSYD L 276.51 Dehydration 04/21/2012 OSVALDO RODRIGUEZ PSYD L V70.0 Routine General Medical Examination At A [facility] 04/21/2012 SANCHEZ DO, ELDA K 276.51 Dehydration 04/21/2012 SANCHEZ DO, ELDA K V70.0 Routine General Medical Examination At [facility] 04/21/2012 SANCHEZ DO, ELDA K 276.51 Dehydration 04/21/2012 SANCHEZ DO, ELDA K V70.0 Routine General Medical Examination At [facility] 04/21/2012 SANCHEZ DO, ELDA K 276.51 Dehydration 04/21/2012 SANCHEZ DO, ELDA K V70.0 Routine General Medical Examination At [facility] 04/21/2012 SANCHEZ DO, ELDA K 276.51 Dehydration 04/21/2012 SANCHEZ DO, ELDA K V70.0 Routine General Medical Examination At A [facility] 04/21/2012 OSVALDO RODRIGUEZ PSYD L 276.51 Dehydration 04/21/2012 OSVALDO RODRIGUEZ PSYD L V70.0 Routine General Medical Examination At A [facility] 04/21/2012 SANCHEZ DO, ELDA K 276.51 Dehydration 04/21/2012 SANCHEZ DO, ELDA K V70.0 Routine General Medical Examination At A [facility] 04/21/2012 SANCHEZ DO, ELDA K 276.51 Dehydration 04/21/2012 SANCHEZ DO, ELDA K V70.0 Routine General Medical Examination At A [facility] 04/21/2012 OSVALDO RODRIGUEZ PSYD L 276.51 Dehydration 04/21/2012 OSVALDO RODRIGUEZ PSYD L V70.0 Routine General Medical Examination At A [facility] 04/21/2012 ELDA SANCHEZ DO K 276.51 Dehydration 04/21/2012 LAURA DOELDA K V70.0 Routine General Medical Examination At A [facility] 07/16/2012 OSVALDO RODRIGUEZ PSYD 300.01 AN PANIC DIS W/O [facility] 07/16/2012 TAVON RILEY APRN 300.01 AN PANIC DIS W/O [facility] 07/16/2012 ELDA SANCHEZ DO K 300.01 AN PANIC DIS W/O [facility] 07/16/2012 OSVALDO RODRIGUEZ PSYD 300.01 AN PANIC DIS W/O [facility] 07/16/2012 ELDA SANCHEZ DO K 300.01 AN PANIC DIS W/O [facility] 07/16/2012 OSVALDO RODRIGUEZ PSYD 300.01 AN PANIC DIS W/O [facility] 07/16/2012 300.01 AN PANIC DIS W/O [facility] 07/16/2012 300.01 AN PANIC DIS W/O [facility] 07/16/2012 300.01 AN PANIC DIS W/O [facility] 07/16/2012 300.01 AN PANIC DIS W/O [facility] 07/16/2012 ELDA SANCHEZ DO K 300.01 AN PANIC DIS W/O [facility] 07/16/2012 ELDA SANCHEZ DO K 300.01 AN PANIC DIS W/O [facility] 07/16/2012 SANCHEZ ELDA EMERY K 300.01 AN PANIC DIS W/O [facility] 07/16/2012 ROD WU APRN A 300.01 AN PANIC DIS W/O [facility] 07/16/2012 OSVALDO RODRIGUEZ PSYD L 300.01 AN PANIC DIS W/O [facility] 07/16/2012 ELDA SANCHEZ DO K 300.01 AN PANIC DIS W/O [facility] 07/16/2012 OSVALDO RODRIGUEZ PSYD 300.01 AN PANIC DIS W/O [facility] 07/16/2012 OSVALDO RODRIGUEZ PSYD 300.01 AN PANIC DIS W/O AGORA 07/16/2012 ELDA SANCHEZ DO K 300.01 AN PANIC DIS W/O AGORA 07/16/2012 OSVALDO RODRIGUEZ PSYD 300.01 AN PANIC DIS W/O AGORA 07/16/2012 OSVALDO RODRIGUEZ PSYD L 300.01 AN PANIC DIS W/O AGORA 07/16/2012 SANCHEZ DO, ELDA K 300.01 AN PANIC DIS W/O AGORA 07/16/2012 SANCHEZ DO, ELDA K 300.01 AN PANIC DIS W/O AGORA 07/16/2012 SANCHEZ DO, ELDA K 300.01 AN PANIC DIS W/O AGORA 07/16/2012 SANCHEZ DO, ELDA K 300.01 AN PANIC DIS W/O AGORA 07/16/2012 OSVALDO RODRIGUEZ PSYD L 300.01 AN PANIC DIS W/O AGORA 07/16/2012 SANCHEZ DO, ELDA K 300.01 AN PANIC DIS W/O AGORA 07/16/2012 SANCHEZ DO, ELDA K 300.01 AN PANIC DIS W/O AGORA 07/16/2012 OSVALDO RODRIGUEZ PSYD L 300.01 AN PANIC DIS W/O AGORA 07/16/2012 SANCHEZ DO, ELDA K 300.01 AN PANIC DIS W/O AGORA 08/11/2012 OSVALDO RODRIGUEZ PSYD 724.5 BACK PAIN, GENERAL 08/11/2012 TAVON RILEY APRN 724.5 BACK PAIN, GENERAL 08/11/2012 SANCHEZ DO ELDA K 724.5 BACK PAIN, GENERAL 08/11/2012 OSVALDO RODRIGUEZ PSYD 724.5 BACK PAIN, GENERAL 08/11/2012 SANCHEZ DO ELDA K 724.5 BACK PAIN, GENERAL 08/11/2012 OSVALDO RODRIGUEZ PSYD L 724.5 BACK PAIN, GENERAL 08/11/2012 724.5 BACK PAIN, GENERAL 08/11/2012 724.5 BACK PAIN, GENERAL 08/11/2012 724.5 BACK PAIN, GENERAL 08/11/2012 724.5 BACK PAIN, GENERAL 08/11/2012 SANCHEZ DO, ELDA K 724.5 BACK PAIN, GENERAL 08/11/2012 SANCHEZ DO, ELDA K 724.5 BACK PAIN, GENERAL 08/11/2012 SANCHEZ DO, ELDA K 724.5 BACK PAIN, GENERAL 08/11/2012 ROD WU APRN 724.5 BACK PAIN, GENERAL 08/11/2012 OSVALDO RODRIGUEZ PSYD 724.5 BACK PAIN, GENERAL 08/11/2012 SANCHEZ DO ELDA K 724.5 BACK PAIN, GENERAL 08/11/2012 OSVALDO RODRIGUEZ PSYD L 724.5 BACK PAIN, GENERAL 08/11/2012 OSVALDO RODRIGUEZ PSYD L 724.5 BACK PAIN, GENERAL 08/11/2012 SANCHEZ DO ELDA K 724.5 BACK PAIN, GENERAL 08/11/2012 OSVALDO RODRIGUEZ PSYD L 724.5 BACK PAIN, GENERAL 08/11/2012 OSVALDO RODRIGUEZ PSYD L 724.5 BACK PAIN, GENERAL 08/11/2012 SANCHEZ DO, ELDA K 724.5 BACK PAIN, GENERAL 08/11/2012 SANCHEZ DO, ELDA K 724.5 BACK PAIN, GENERAL 08/11/2012 SANCHEZ DO, ELDA K 724.5 BACK PAIN, GENERAL 08/11/2012 SANCHEZ DO, ELDA K 724.5 BACK PAIN, GENERAL 08/11/2012 OSVALDO RODRIGUEZ PSYD L 724.5 BACK PAIN, GENERAL 08/11/2012 SANCHEZ DO, ELDA K 724.5 BACK PAIN, GENERAL 08/11/2012 SANCHEZ DO, ELDA K 724.5 BACK PAIN, GENERAL 08/11/2012 OSVALDO RODRIGUEZ PSYD L 724.5 BACK PAIN, GENERAL 08/11/2012 SANCHEZ DO, ELDA K 724.5 BACK PAIN, GENERAL 11/06/2012 SANCHEZ DO ELDA K V58.69 LONG-TERM (CURRENT) USE OF OTHER MEDICATIONS 11/06/2012 OSVALDO RODRIGUEZ PSYD V58.69 LONG-TERM (CURRENT) USE OF OTHER MEDICATIONS 11/06/2012 SANCHEZ DO ELDA K V58.69 LONG-TERM (CURRENT) USE OF OTHER MEDICATIONS 11/06/2012 OSVALDO RODRIGUEZ PSYD V58.69 LONG-TERM (CURRENT) USE OF OTHER MEDICATIONS 11/06/2012 V58.69 LONG-TERM ( CURRENT) USE OF OTHER MEDICATIONS 11/06/2012 V58.69 LONG-TERM ( CURRENT) USE OF OTHER MEDICATIONS 11/06/2012 V58.69 LONG-TERM ( CURRENT) USE OF OTHER MEDICATIONS 11/06/2012 V58.69 LONG-TERM ( CURRENT) USE OF OTHER MEDICATIONS 11/06/2012 SANCHEZ DO, ELDA K V58.69 LONG-TERM (CURRENT) USE OF OTHER MEDICATIONS 11/06/2012 SANCHEZ DO, ELDA K V58.69 LONG-TERM (CURRENT) USE OF OTHER MEDICATIONS 11/06/2012 SANCHEZ DO, ELDA K V58.69 LONG-TERM (CURRENT) USE OF OTHER MEDICATIONS 11/06/2012 ROD WU APRN V58.69 LONG-TERM (CURRENT) USE OF OTHER MEDICATIONS 11/06/2012 OSVALDO RODRIGUEZ PSYD L V58.69 LONG-TERM (CURRENT) USE OF OTHER MEDICATIONS 11/06/2012 SANCHEZ DO ELDA K V58.69 LONG-TERM (CURRENT) USE OF OTHER MEDICATIONS 11/06/2012 OSVALDO RODRIGUEZ PSYD L V58.69 LONG-TERM (CURRENT) USE OF OTHER MEDICATIONS 11/06/2012 OSVALDO RODRIGUEZ PSYD L V58.69 LONG-TERM (CURRENT) USE OF OTHER MEDICATIONS 11/06/2012 SANCHEZ DO ELDA K V58.69 LONG-TERM (CURRENT) USE OF OTHER MEDICATIONS 11/06/2012 OSVALDO RODRIGUEZ PSYD L V58.69 LONG-TERM (CURRENT) USE OF OTHER MEDICATIONS 11/06/2012 OSVALDO RODRIGUEZ PSYD L V58.69 LONG-TERM (CURRENT) USE OF OTHER MEDICATIONS 11/06/2012 SANCHEZ DO ELDA K V58.69 LONG-TERM (CURRENT) USE OF OTHER MEDICATIONS 11/06/2012 SANCHEZ DO ELDA K V58.69 LONG-TERM (CURRENT) USE OF OTHER MEDICATIONS 11/06/2012 SANCHEZ DO, ELDA K V58.69 LONG-TERM (CURRENT) USE OF OTHER MEDICATIONS 11/06/2012 SANCHEZ DO, ELDA K V58.69 LONG-TERM (CURRENT) USE OF OTHER MEDICATIONS 11/06/2012 OSVALDO RODRIGUEZ PSYD L V58.69 LONG-TERM (CURRENT) USE OF OTHER MEDICATIONS 11/06/2012 SANCHEZ DO, ELDA K V58.69 LONG-TERM (CURRENT) USE OF OTHER MEDICATIONS 11/06/2012 SANCHEZ DO, ELDA K V58.69 LONG-TERM (CURRENT) USE OF OTHER MEDICATIONS 11/06/2012 MCCOSVALDO GOTTLIEB PSYD V58.69 LONG-TERM (CURRENT) USE OF OTHER MEDICATIONS 11/06/2012 ELDA SANCHEZ DO V58.69 LONG-TERM (CURRENT) USE OF OTHER MEDICATIONS 03/10/2013 V73.81 HPV SCREENING 03/10/2013 V76.10 BREAST CANCER SCREENING 03/10/2013 V76.2 CERVICAL CANCER SCREENING (PAP SMEAR) 03/10/2013 V73.81 HPV SCREENING 03/10/2013 V76.10 BREAST CANCER SCREENING 03/10/2013 V76.2 CERVICAL CANCER SCREENING (PAP SMEAR) 03/10/2013 V73.81 HPV SCREENING 03/10/2013 V76.10 BREAST CANCER SCREENING 03/10/2013 V76.2 CERVICAL CANCER SCREENING (PAP SMEAR) 03/10/2013 ELDA SANCHEZ DO K V73.81 HPV SCREENING 03/10/2013 JESUS SANCHEZ DOA K V76.10 BREAST CANCER SCREENING 03/10/2013 JESUS SANCHEZ DOA K V76.2 CERVICAL CANCER SCREENING (PAP SMEAR) 03/10/2013 ELDA SANCHEZ DO K V73.81 HPV SCREENING 03/10/2013 JESUS SANCHEZ DOA K V76.10 BREAST CANCER SCREENING 03/10/2013 LAURA EMERY ELDA K V76.2 CERVICAL CANCER SCREENING (PAP SMEAR) 03/10/2013 JESUS SANCHEZ DOA K V73.81 HPV SCREENING 03/10/2013 JESUS SANCHEZ DOA K V76.10 BREAST CANCER SCREENING 03/10/2013 SANCHEZ DO ELDA K V76.2 CERVICAL CANCER SCREENING (PAP SMEAR) 03/10/2013 JAZMIN INGRAM, ROD A V73.81 HPV SCREENING 03/10/2013 JAZMIN TECHNOLOGY AUDITOR, ROD A V76.10 BREAST CANCER SCREENING 03/10/2013 JAZMIN TECHNOLOGY AUDITOR, ROD A V76.2 CERVICAL CANCER SCREENING (PAP SMEAR) 03/10/2013 OSVALDO RODRIGUEZ PSYD V73.81 HPV SCREENING 03/10/2013 OSVALDO RODRIGUEZ PSYD V76.10 BREAST CANCER SCREENING 03/10/2013 OSVALDO RODRIGUEZ PSYD V76.2 CERVICAL CANCER SCREENING (PAP SMEAR) 03/10/2013 ELDA SANCHEZ DO K V73.81 HPV SCREENING 03/10/2013 JESUS SANCHEZ DOA K V76.10 BREAST CANCER SCREENING 03/10/2013 JESUS SANCHEZ DOA K V76.2 CERVICAL CANCER SCREENING (PAP SMEAR) 03/10/2013 OSVALDO RODRIGUEZ PSYD L V73.81 HPV SCREENING 03/10/2013 OSVALDO RODRIGUEZ PSYD L V76.10 BREAST CANCER SCREENING 03/10/2013 OSVALDO RODRIGUEZ PSYD V76.2 CERVICAL CANCER SCREENING (PAP SMEAR) 03/10/2013 OSVALDO RODRIGUEZ PSYD L V73.81 HPV SCREENING 03/10/2013 OSVALDO RODRIGUEZ PSYD L V76.10 BREAST CANCER SCREENING 03/10/2013 OSVALDO RODRIGUEZ PSYD V76.2 CERVICAL CANCER SCREENING (PAP SMEAR) 03/10/2013 JESUS SANCHEZ DOA K V73.81 HPV SCREENING 03/10/2013 JESUS SANCHEZ DOA K V76.10 BREAST CANCER SCREENING 03/10/2013 JESUS SANCHEZ DOA K V76.2 CERVICAL CANCER SCREENING (PAP SMEAR) 03/10/2013 OSVALDO RODRIGUEZ PSYD V73.81 HPV SCREENING 03/10/2013 OSVALDO RODRIGUEZ PSYD V76.10 BREAST CANCER SCREENING 03/10/2013 OSVALDO RODRIGUEZ PSYD V76.2 CERVICAL CANCER SCREENING (PAP SMEAR) 03/10/2013 OSVALDO RODRIGUEZ PSYD L V73.81 HPV SCREENING 03/10/2013 OSVALDO RODRIGUEZ PSYD L V76.10 BREAST CANCER SCREENING 03/10/2013 OSVALDO RODRIGUEZ PSYD L V76.2 CERVICAL CANCER SCREENING (PAP SMEAR) 03/10/2013 JESUS SANCHEZ DOA K V73.81 HPV SCREENING 03/10/2013 LAURA EMERY ELDA K V76.10 BREAST CANCER SCREENING 03/10/2013 SANCHEZ DO ELDA K V76.2 CERVICAL CANCER SCREENING (PAP SMEAR) 03/10/2013 SANCHEZ DO ELDA K V73.81 HPV SCREENING 03/10/2013 SANCHEZ DO ELDA K V76.10 BREAST CANCER SCREENING 03/10/2013 SANCHEZ DO ELDA K V76.2 CERVICAL CANCER SCREENING (PAP SMEAR) 03/10/2013 SANCHEZ DO ELDA K V73.81 HPV SCREENING 03/10/2013 SANCHEZ DO ELDA K V76.10 BREAST CANCER SCREENING 03/10/2013 LAURA EMERY, ELDA K V76.2 CERVICAL CANCER SCREENING (PAP SMEAR) 03/10/2013 LAURA EMERY ELDA K V73.81 HPV SCREENING 03/10/2013 LAURA EMERY, ELDA K V76.10 BREAST CANCER SCREENING 03/10/2013 LAURA EMERY, ELDA K V76.2 CERVICAL CANCER SCREENING (PAP SMEAR) 03/10/2013 OSVALDO RODRIGUEZ PSYD L V73.81 HPV SCREENING 03/10/2013 OSVALDO RODRIGUEZ PSYD L V76.10 BREAST CANCER SCREENING 03/10/2013 OSVALDO RODRIGUEZ PSYD L V76.2 CERVICAL CANCER SCREENING (PAP SMEAR) 03/10/2013 LAURA EMERY ELAD K V73.81 HPV SCREENING 03/10/2013 LAURA EMERY ELDA K V76.10 BREAST CANCER SCREENING 03/10/2013 LAURA EMERY ELDA K V76.2 CERVICAL CANCER SCREENING (PAP SMEAR) 03/10/2013 SANCHEZ DO ELDA K V73.81 HPV SCREENING 03/10/2013 LAURA EMERY ELDA K V76.10 BREAST CANCER SCREENING 03/10/2013 LAURA EMERY ELDA K V76.2 CERVICAL CANCER SCREENING (PAP SMEAR) 03/10/2013 OSVALDO RODRIGUEZ PSYD L V73.81 HPV SCREENING 03/10/2013 OSVALDO RODRIGUEZ PSYD L V76.10 BREAST CANCER SCREENING 03/10/2013 OSVALDO RODRIGUEZ PSYD L V76.2 CERVICAL CANCER SCREENING (PAP SMEAR) 03/10/2013 LAURA EMERY ELDA K V73.81 HPV SCREENING 03/10/2013 LAURA EMERY ELDA K V76.10 BREAST CANCER SCREENING 03/10/2013 LAURA EMERY ELDA K V76.2 CERVICAL CANCER SCREENING (PAP SMEAR) 04/14/2013 702.19 OTHER SEBORRHEIC KERATOSIS 04/14/2013 LAURA EMERY ELDA K 702.19 OTHER SEBORRHEIC KERATOSIS 04/14/2013 SANCHEZ DO ELDA K 702.19 OTHER SEBORRHEIC KERATOSIS 04/14/2013 SANCHEZ DO ELDA K 702.19 OTHER SEBORRHEIC KERATOSIS 04/14/2013 ROD WU APRN 702.19 OTHER SEBORRHEIC KERATOSIS 04/14/2013 OSVALDO RODRIGUEZ PSYD L 702.19 OTHER SEBORRHEIC KERATOSIS 04/14/2013 JESUS SANCHEZ DOA K 702.19 OTHER SEBORRHEIC KERATOSIS 04/14/2013 OSVALDO RODRIGUEZ PSYD ANN L 702.19 OTHER SEBORRHEIC KERATOSIS 04/14/2013 OSVALDO RODRIGUEZ PSYD ANN L 702.19 OTHER SEBORRHEIC KERATOSIS 04/14/2013 LAURA EMERY ELDA K 702.19 OTHER SEBORRHEIC KERATOSIS 04/14/2013 OSVALDO RODRIGUEZ PSYD ANN L 702.19 OTHER SEBORRHEIC KERATOSIS 04/14/2013 OSVALDO RODRIGUEZ PSYD L 702.19 OTHER SEBORRHEIC KERATOSIS 04/14/2013 LAURA EMERY, ELDA K 702.19 OTHER SEBORRHEIC KERATOSIS 04/14/2013 SANCHEZ DO, ELDA K 702.19 OTHER SEBORRHEIC KERATOSIS 04/14/2013 LAURA EMERY ELDA K 702.19 OTHER SEBORRHEIC KERATOSIS 04/14/2013 SANCHEZ DO, ELDA K 702.19 OTHER SEBORRHEIC KERATOSIS 04/14/2013 OSVALDO RODRIGUEZ PSYD L 702.19 OTHER SEBORRHEIC KERATOSIS 04/14/2013 SANCHEZ DO, ELDA K 702.19 OTHER SEBORRHEIC KERATOSIS 04/14/2013 SANCHEZ DO, ELDA K 702.19 OTHER SEBORRHEIC KERATOSIS 04/14/2013 OSVALDO RODRIGUEZ PSYD ANN L 702.19 OTHER SEBORRHEIC KERATOSIS 04/14/2013 SANCHEZ DO, ELDA K 702.19 OTHER SEBORRHEIC KERATOSIS 11/12/2013 ROD WU APRN A 724.2 LUMBAGO 11/12/2013 OSVALDO RODRIGUEZ PSYD L 724.2 LUMBAGO 11/12/2013 SANCHEZ ELDA EMERY K 724.2 LUMBAGO 11/12/2013 OSVALDO RODRIGUEZ PSYD L 724.2 LUMBAGO 11/12/2013 OSVALDO RODRIGUEZ PSYD L 724.2 LUMBAGO 11/12/2013 ELDA SANCHEZ DO K 724.2 LUMBAGO 11/12/2013 OSVALDO RODRIGUEZ PSYD L 724.2 LUMBAGO 11/12/2013 OSVALDO RODRIGUEZ PSYD L 724.2 LUMBAGO 11/12/2013 SANCHEZ DO, ELDA K 724.2 LUMBAGO 11/12/2013 SANCHEZ DO, ELDA K 724.2 LUMBAGO 11/12/2013 SANCHEZ DO, ELDA K 724.2 LUMBAGO 11/12/2013 SANCHEZ DO, ELDA K 724.2 LUMBAGO 11/12/2013 OSVALDO RODRIGUEZ PSYD ANN L 724.2 LUMBAGO 11/12/2013 SANCHEZ DO, ELDA K 724.2 LUMBAGO 11/12/2013 SANCHEZ DO, ELDA K 724.2 LUMBAGO 11/12/2013 OSVALDO RODRIGUEZ PSYD ANN L 724.2 LUMBAGO 11/12/2013 SANCHEZ DO, ELDA K 724.2 LUMBAGO 02/02/2014 SANCHEZ DO, ELDA K 278.00 OBESITY UNSPECIFIED 02/02/2014 SANCHEZ DO, ELDA K 728.71 PLANTAR FASCIAL FIBROMATOSIS 02/02/2014 OSVALDO RODRIGUEZ PSYD ANN L 278.00 OBESITY UNSPECIFIED 02/02/2014 OSVALDO RODRIGUEZ PSYD L 728.71 PLANTAR FASCIAL FIBROMATOSIS 02/02/2014 OSVALDO RODRIGUEZ PSYD ANN L 278.00 OBESITY UNSPECIFIED 02/02/2014 OSVALDO RODRIGUEZ PSYD ANN L 728.71 PLANTAR FASCIAL FIBROMATOSIS 02/02/2014 SANCHEZ DO ELDA K 278.00 OBESITY UNSPECIFIED 02/02/2014 SANCHEZ DO, ELDA K 728.71 PLANTAR FASCIAL FIBROMATOSIS 02/02/2014 OSVALDO RODRIGUEZ PSYD ANN L 278.00 OBESITY UNSPECIFIED 02/02/2014 OSVALDO RODRIGUEZ PSYD L 728.71 PLANTAR FASCIAL FIBROMATOSIS 02/02/2014 OSVALDO RODRIGUEZ PSYD ANN L 278.00 OBESITY UNSPECIFIED 02/02/2014 OSVALDO RODRIGUEZ PSYD ANN L 728.71 PLANTAR FASCIAL FIBROMATOSIS 02/02/2014 SANCHEZ DO ELDA K 278.00 OBESITY UNSPECIFIED 02/02/2014 SANCHEZ DO, ELDA K 728.71 PLANTAR FASCIAL FIBROMATOSIS 02/02/2014 SANCHEZ DO, ELDA K 278.00 OBESITY UNSPECIFIED 02/02/2014 SANCHEZ DO, ELDA K 728.71 PLANTAR FASCIAL FIBROMATOSIS 02/02/2014 SANCHEZ DO, ELDA K 278.00 OBESITY UNSPECIFIED 02/02/2014 SANCHEZ DO, ELDA K 728.71 PLANTAR FASCIAL FIBROMATOSIS 02/02/2014 SANCHEZ DO, ELDA K 278.00 OBESITY UNSPECIFIED 02/02/2014 SANCHEZ DO, ELDA K 728.71 PLANTAR FASCIAL FIBROMATOSIS 02/02/2014 OSVALDO RODRIGUEZ PSYD L 278.00 OBESITY UNSPECIFIED 02/02/2014 OSVALDO RODRIGUEZ PSYD L 728.71 PLANTAR FASCIAL FIBROMATOSIS 02/02/2014 SANCHEZ DO, ELDA K 278.00 OBESITY UNSPECIFIED 02/02/2014 SANCHEZ DO, ELDA K 728.71 PLANTAR FASCIAL FIBROMATOSIS 02/02/2014 SANCHEZ DO, ELDA K 278.00 OBESITY UNSPECIFIED 02/02/2014 SANCHEZ DO, ELDA K 728.71 PLANTAR FASCIAL FIBROMATOSIS 02/02/2014 OSVALDO RODRIGUEZ PSYD L 278.00 OBESITY UNSPECIFIED 02/02/2014 OSVALDO RODRIGUEZ PSYD L 728.71 PLANTAR FASCIAL FIBROMATOSIS 02/02/2014 SANCHEZ DO, ELDA K 278.00 OBESITY UNSPECIFIED 02/02/2014 SANCHEZ DO, ELDA K 728.71 PLANTAR FASCIAL FIBROMATOSIS 04/26/2014 OSVALDO RODRIGUEZ PSYD L 704.1 HIRSUTISM 04/26/2014 OSVALDO RODRIGUEZ PSYD L V70.0 ROUTINE GENERAL MEDICAL EXAMINATION AT A HEALTH CARE FACILITY 04/26/2014 SANCHEZ DO, ELDA K 704.1 HIRSUTISM 04/26/2014 SANCHEZ DO, ELDA K V70.0 ROUTINE GENERAL MEDICAL EXAMINATION AT A HEALTH CARE FACILITY 04/26/2014 OSVALDO RODRIGUEZ PSYD L 704.1 HIRSUTISM 04/26/2014 OSVALDO RODRIGUEZ PSYD L V70.0 ROUTINE GENERAL MEDICAL EXAMINATION AT A HEALTH CARE FACILITY 04/26/2014 OSVALDO RODRIGUEZ PSYD L 704.1 HIRSUTISM 04/26/2014 OSVALDO RODRIGUEZ PSYD L V70.0 ROUTINE GENERAL MEDICAL EXAMINATION AT A HEALTH CARE FACILITY 04/26/2014 SANCHEZ DO, ELDA K 704.1 HIRSUTISM 04/26/2014 SANCHEZ DO, ELDA K V70.0 ROUTINE GENERAL MEDICAL EXAMINATION AT A HEALTH CARE FACILITY 04/26/2014 SANCHEZ DO, ELDA K 704.1 HIRSUTISM 04/26/2014 SANCHEZ DO, ELDA K V70.0 ROUTINE GENERAL MEDICAL EXAMINATION AT A HEALTH CARE FACILITY 04/26/2014 SANCHEZ DO, ELDA K 704.1 HIRSUTISM 04/26/2014 SANCHEZ DO, ELDA K V70.0 ROUTINE GENERAL MEDICAL EXAMINATION AT A HEALTH CARE FACILITY 04/26/2014 SANCHEZ DO ELDA K 704.1 HIRSUTISM 04/26/2014 SANCHEZ DO, ELDA K V70.0 ROUTINE GENERAL MEDICAL EXAMINATION AT A HEALTH CARE FACILITY 04/26/2014 OSVALDO RODRIGUEZ PSYD L 704.1 HIRSUTISM 04/26/2014 OSVALDO RODRIGUEZ PSYD V70.0 ROUTINE GENERAL MEDICAL EXAMINATION AT A HEALTH CARE FACILITY 04/26/2014 SANCHEZ DO ELDA K 704.1 HIRSUTISM 04/26/2014 SANCHEZ DO, ELDA K V70.0 ROUTINE GENERAL MEDICAL EXAMINATION AT A HEALTH CARE FACILITY 04/26/2014 SANCHEZ DO ELDA K 704.1 HIRSUTISM 04/26/2014 SANCHEZ DO, ELDA K V70.0 ROUTINE GENERAL MEDICAL EXAMINATION AT A HEALTH CARE FACILITY 04/26/2014 OSVALDO RODRIGUEZ PSYD 704.1 HIRSUTISM 04/26/2014 OSVALDO RODRIGUEZ PSYD V70.0 ROUTINE GENERAL MEDICAL EXAMINATION AT A HEALTH CARE FACILITY 04/26/2014 SANCHEZ DO ELDA K 704.1 HIRSUTISM 04/26/2014 SANCHEZ DO ELDA K V70.0 ROUTINE GENERAL MEDICAL EXAMINATION AT A HEALTH CARE FACILITY 06/21/2014 MARI OSORIO APRN Ot 300.00 ANXIETY STATE NOS 06/21/2014 MARI OSORIO TECHNOLOGY AUDITOR Ot 401.9 HYPERTENSION NOS 06/21/2014 MARI OSORIO TECHNOLOGY AUDITOR Ot V58.69 OTH MED,LT,CURRENT USE 06/24/2014 SANCHEZ DO ELDA K V81.1 HYPERTENSION SCREENING 06/24/2014 SANCHEZ DO, ELDA K V81.1 HYPERTENSION SCREENING 06/24/2014 SANCHEZ DO, ELDA K V81.1 HYPERTENSION SCREENING 06/24/2014 OSVALDO RODRIGUEZ PSYD V81.1 HYPERTENSION SCREENING 06/24/2014 SANCHEZ DO, ELDA K V81.1 HYPERTENSION SCREENING 06/24/2014 SANCHEZ DO, ELDA K V81.1 HYPERTENSION SCREENING 06/24/2014 OSVALDO RODRIGUEZ PSYD V81.1 HYPERTENSION SCREENING 06/24/2014 SANCHEZ DO, ELDA K V81.1 HYPERTENSION SCREENING 06/29/2014 LAURA DO, ELDA K 691.8 ECZEMA- ATOPIC 06/29/2014 SANCHEZ DO, ELDA K 691.8 ECZEMA- ATOPIC 06/29/2014 OSVALDO RODRIGUEZ PSYD 691.8 ECZEMA- ATOPIC 06/29/2014 SANCHEZ DO, ELDA K 691.8 ECZEMA- ATOPIC 06/29/2014 SANCHEZ DO, ELDA K 691.8 ECZEMA- ATOPIC 06/29/2014 OSVALDO RODRIGUEZ PSYD 691.8 ECZEMA- ATOPIC 06/29/2014 SANCHEZ DO, ELDA K 691.8 ECZEMA- ATOPIC 08/31/2014 SANCHEZ DO, ELDA K 473.9 UNSPECIFIED SINUSITIS (CHRONIC) 08/31/2014 LAURA EMERY ELDA K 789.09 ABDOMINAL PAIN OTHER SPECIFIED SITE 08/31/2014 SANCHEZ DO, ELDA K 473.9 UNSPECIFIED SINUSITIS (CHRONIC) 08/31/2014 LAURA EMERY ELDA K 789.09 ABDOMINAL PAIN OTHER SPECIFIED SITE 08/31/2014 OSVALDO RODRIGUEZ PSYD 473.9 UNSPECIFIED SINUSITIS (CHRONIC) 08/31/2014 OSVALDO RODRIGUEZ PSYD 789.09 ABDOMINAL PAIN OTHER SPECIFIED SITE 08/31/2014 SANCHEZ DO ELDA K 473.9 UNSPECIFIED SINUSITIS (CHRONIC) 08/31/2014 SANCHEZ ELDA K 789.09 ABDOMINAL PAIN OTHER SPECIFIED SITE 05/01/2015 Ot 327.23 05/01/2015 Ot 401.9 05/01/2015 IVELISSE ED EMERY Ot 599.0 URIN TRACT INFECTION NOS 05/01/2015 ED OVIEDO DO Ot 789.00 ABDOMINAL PAIN, UNSPECIFIED SITE 05/01/2015 Ot 327.23 05/01/2015 Ot 401.9 05/06/2015 Ot 327.23 05/06/2015 Ot 401.9 06/28/2015 Ot 327.23 06/28/2015 Ot 401.9 09/28/2015 Ot 327.23 09/28/2015 Ot 401.9 09/28/2015 BIBIANA DE LA VEGA Ot R07.9 09/28/2015 Ot E66.9 09/28/2015 Ot E78.5 09/28/2015 Ot I10 09/28/2015 Ot R07.9 09/28/2015 Ot E66.9 09/28/2015 Ot E78.5 09/28/2015 Ot I10 09/28/2015 Ot R07.9 10/13/2015 BIBIANA [place] Ot R07.9 10/13/2015 Ot E66.9 10/13/2015 Ot E78.5 10/13/2015 Ot I10 10/13/2015 Ot R07.9 01/09/2016 KAITLYNN SALDANAP Ot R10.30 02/13/2016 KAITLYNN SALDANA SPINDLE CARVER Ot R10.30 LOWER ABDOMINAL PAIN, UNSPECIFIED 02/17/2016 KAITLYNN SALDANAP Ot R10.30 LOWER ABDOMINAL PAIN, UNSPECIFIED 08/18/2016 MARTHA HEALY Ot J11.1 FLU DUE TO UNIDENTIFIED INFLUENZA VIRUS 08/18/2016 MARTHA HEALY Ot M79.1 MYALGIA 08/18/2016 BIBIANA DE [place] Ot R07.9 CHEST PAIN, UNSPECIFIED 08/18/2016 Ot E66.9 OBESITY, UNSPECIFIED 08/18/2016 Ot E78.5 HYPERLIPIDEMIA, UNSPECIFIED 08/18/2016 Ot I10 ESSENTIAL ( PRIMARY) HYPERTENSION 08/18/2016 Ot R07.9 CHEST PAIN, UNSPECIFIED 08/18/2016 KAITLYNN SALDANAP Ot R10.30 LOWER ABDOMINAL PAIN, UNSPECIFIED 08/20/2016 ED OVIEDO DO Ot I10 ESSENTIAL (PRIMARY) HYPERTENSION 08/20/2016 ED OVIEDO DO Ot J18.9 PNEUMONIA, UNSPECIFIED ORGANISM 08/20/2016 ED OVIEDO DO Ot R50.9 FEVER, UNSPECIFIED 08/20/2016 IVELISSE ED EMERY K Ot Z79.899 OTHER TROUBLE CLERK (CURRENT) DRUG THERAPY 08/20/2016 MATRHA HEALY Ot J11.1 FLU DUE TO UNIDENTIFIED INFLUENZA VIRUS 08/20/2016 MARTHA HEALYP Ot M79.1 MYALGIA 08/20/2016 MARTHA HEALYP Ot J11.1 FLU DUE TO UNIDENTIFIED INFLUENZA VIRUS 08/20/2016 MARTHA HEALYP Ot M79.1 MYALGIA 08/21/2016 IVELISSE DO ED K Ot I10 ESSENTIAL (PRIMARY) HYPERTENSION 08/21/2016 IVELISSE DO, ED K Ot J18.9 PNEUMONIA, UNSPECIFIED ORGANISM 08/21/2016 IVELISSE AYE EMERYA K Ot R50.9 FEVER, UNSPECIFIED 08/21/2016 IVELISSE ED EMERY K Ot Z79.899 OTHER TROUBLE CLERK (CURRENT) DRUG THERAPY 08/24/2016 MARTHA HEALY Ot J11.1 FLU DUE TO UNIDENTIFIED INFLUENZA VIRUS 08/24/2016 MARTHA HEALY Ot M79.1 MYALGIA 11/27/2016 KAITLYNN SALDANA Ot R10.30 LOWER ABDOMINAL PAIN, UNSPECIFIED 10/17/2017 GAMAL CLARK MD Ot N63.10 UNSPECIFIED LUMP IN THE RIGHT BREAST, UN 10/17/2017 GAMAL CLARK MD Ot N63.20 UNSPECIFIED LUMP IN THE LEFT BREAST, UNS Procedures Code [place] [address] INDIV PSYTX 45/50 MIN 08/25/2012 71904 INDIV PSYTX 20/30 MIN 10/01/2012 44671 PSYTX PT&/FAMILY 45 MINUTES 11/12/2012 22216 PSYTX PT&/FAMILY 45 MINUTES 12/23/2012 75250 PAP SMEAR 03/12/2013 Q0091 PAP SMEAR OBTAIN SMEAR 03/12/2013 82949 EXCISION BENIGN LEISON > 4.0 cm (specify location in Med[facility] description) 04/07/2013 J3420 B12 VITAMIN INJECTION 05/07/2013 J3420 B12 VITAMIN INJECTION 08/18/2013 05582 THERAPUTIC INJ SQ/IM 08/18/2013 79985 ROUTINE VENIPUNCTURE 08/31/2013 [id number] GFR CALC (RESULT ONLY) 08/31/2013 66409 CMP 08/31/2013 59992 UA W/ CULTURE IF INDICATED 11/12/2013 33539 PSYCH DIAGNOSTIC EVALUATION 01/08/2014 59054 PSYTX PT&/FAMILY 45 MINUTES 04/19/2014 60495 ROUTINE VENIPUNCTURE 04/26/2014 [id number] GFR CALC (RESULT ONLY) 04/26/2014 36909 CMP 04/26/2014 99355 LIPID PANEL 04/26/2014 48880 PSYTX PT&/FAMILY 45 MINUTES 04/26/2014 31318 PSYTX PT&/FAMILY 45 MINUTES 05/05/2014 15001 PSYTX PT&/FAMILY 30 MINUTES 05/06/2014 87218 PSYTX PT&/FAMILY 45 MINUTES 06/24/2014 BLOOD PRESSURE CHECK 06/24/2014 BLOOD PRESSURE CHECK 07/06/2014 22158 PSYTX PT&/FAMILY 45 MINUTES 08/03/2014 BLOOD PRESSURE CHECK 09/09/2014 57024 PSYTX PT&/FAMILY 45 MINUTES 09/23/2014 Results Test Result Range Influenza virus A and B antigen detection - 08/18/16 14:13 FLU RESULT NEGATIVE FOR INFLUENZA A AND B ANTIGENS BY [facility] Complete blood count (CBC) with automated white blood cell (WBC) differential - 08/19/16 23:30 Blood leukocytes automated count (number/volume) 10.0 10*3/uL 4.3-11.0 Blood erythrocytes automated count (number/volume) 4.35 10*6/uL 4.35-5.85 Venous blood hemoglobin measurement (mass/volume) 13.2 g/dL 11.5-16.0 Blood hematocrit (volume fraction) 38 % 35-52 Automated erythrocyte mean corpuscular volume 87 [foz_us] 80-99 Automated erythrocyte mean corpuscular hemoglobin (mass per erythrocyte) 30 pg 25-34 Automated erythrocyte mean corpuscular hemoglobin concentration measurement ( mass/volume) 35 g/dL 32-36 Automated erythrocyte distribution width ratio 13.2 % 10.0-14.5 Automated blood platelet count (count/volume) 278 10*3/uL 130-400 Automated blood platelet mean volume measurement 10.3 [foz_us] 7.4-10.4 Automated blood neutrophils/100 leukocytes 82 % 42-75 Automated blood lymphocytes/100 leukocytes 11 % 12-44 Blood monocytes/100 leukocytes 6 % 0-12 Automated blood eosinophils/100 leukocytes 1 % 0-10 Automated blood basophils/100 leukocytes 0 % 0-10 Blood neutrophils automated count (number/volume) 8.2 10*3 1.8-7.8 Blood lymphocytes automated count (number/volume) 1.1 10*3 1.0-4.0 Blood monocytes automated count (number/volume) 0.6 10*3 0.0-1.0 Automated eosinophil count 0.1 10*3/uL 0.0-0.3 Automated blood basophil count (count/volume) 0.0 10*3/uL 0.0-0.1 Streptococcus pyogenes antigen detection - 08/19/16 23:30 Streptococcus pyogenes antigen detection NEGATIVE NEGATIVE Serum heterophile antibody titer - 08/19/16 23:30 Serum heterophile antibody titer NEGATIVE NEGATIVE Comprehensive metabolic panel - 08/19/16 23:30 Serum or plasma sodium measurement (moles/volume) 133 mmol/L 135-145 Serum or plasma potassium measurement (moles/volume) 3.2 mmol/L 3.6-5.0 Serum or plasma chloride measurement (moles/volume) 98 mmol/L 98-107 Carbon dioxide 24 mmol/L 21-32 Serum or plasma anion gap determination (moles/volume) 11 mmol/L 5-14 Serum or plasma urea nitrogen measurement (mass/volume) 7 mg/dL 7-18 Serum or plasma creatinine measurement (mass/volume) 0.83 mg/dL 0.60-1.30 Serum or plasma urea nitrogen/creatinine mass ratio 8 NRG Serum or plasma creatinine measurement with calculation of estimated glomerular filtration rate > NRG Serum or plasma glucose measurement (mass/volume) 119 mg/dL 70-105 Serum or plasma calcium measurement (mass/volume) 8.8 mg/dL 8.5-10.1 Serum or plasma total bilirubin measurement (mass/volume) 0.5 mg/dL 0.1-1.0 Serum or plasma alkaline phosphatase measurement (enzymatic activity/volume) 116 U/L 40-136 Serum or plasma aspartate aminotransferase measurement (enzymatic activity/ volume) 27 U/L 5-34 Serum or plasma alanine aminotransferase measurement (enzymatic activity/volume ) 35 U/L 0-55 Serum or plasma protein measurement (mass/volume) 7.4 g/dL 6.4-8.2 Serum or plasma albumin measurement (mass/volume) 4.0 g/dL 3.2-4.5 Bacterial throat culture - 08/19/16 23:30 Bacterial throat culture NBS NRG Bacterial blood culture - 08/19/16 23:30 Bacterial blood culture NG NRG Bacterial blood culture - 08/19/16 23:39 Bacterial blood culture NG NRG Urine beta human chorionic gonadotropin (hCG) measurement - 08/19/16 23:55 Urine beta human chorionic gonadotropin (hCG) measurement NEGATIVE NEGATIVE Complete urinalysis with reflex to culture - 08/19/16 23:55 Urine color determination YELLOW NRG Urine clarity determination VERY CLOUDY NRG Urine pH measurement by test strip 5 5-9 Specific gravity of urine by test strip 1.020 1.016- 1.022 Urine protein assay by test strip, semi-quantitative 1+ NEGATIVE Urine glucose detection by automated test strip NEGATIVE NEGATIVE Erythrocytes detection in urine sediment by light microscopy NEGATIVE NEGATIVE Urine ketones detection by automated test strip NEGATIVE NEGATIVE Urine nitrite detection by test strip NEGATIVE NEGATIVE Urine total bilirubin detection by test strip NEGATIVE NEGATIVE Urine urobilinogen measurement by automated test strip (mass/volume) 1 mg/dL NORMAL Urine leukocyte esterase detection by dipstick NEGATIVE NEGATIVE Automated urine sediment erythrocyte count by microscopy (number/high power field) NONE NRG Automated urine sediment leukocyte count by microscopy (number/high power field ) [HPF] NRG Bacteria detection in urine sediment by light microscopy LARGE NRG Squamous epithelial cells detection in urine sediment by light microscopy 10-25 NRG Crystals detection in urine sediment by light microscopy PRESENT NRG Casts detection in urine sediment by light microscopy NONE NRG Mucus detection in urine sediment by light microscopy NEGATIVE NRG Complete urinalysis with reflex to culture YES NRG Amorphous sediment detection in urine sediment by light microscopy MOD RICK URATES NRG Bacterial urine culture - 08/19/16 23:55 Bacterial urine culture [id number] NRG COLONY COUNT 10,000/ML - 100,000/ML NRG FTX;REPORTABLE (2 COLONY TYPES) NRG FREE TEXT ENTRY 3 MIXED GRAM POSITIVE DAVONTE <10,000/ML NRG Basic Metabolic Panel (8) - 10/09/16 09:39 Glucose, Serum 102 mg/dL 65-99 BUN 11 mg/dL 6-20 Creatinine, Serum 0.68 mg/dL 0.57-1.00 eGFR If NonAfricn Am 112 mL/min/1.73 >59 eGFR If Africn Am 129 mL/min/1.73 >59 BUN/Creatinine Ratio 16 8-20 Sodium, Serum 139 mmol/L 134-144 Potassium, Serum 4.9 mmol/L 3.5-5.2 Chloride, Serum 97 mmol/L 96-106 Carbon Dioxide, Total 25 mmol/L 18-29 Calcium, Serum 9.7 mg/dL 8.7-10.2 CBC With Differential/Platelet - 05/10/17 11:17 WBC 10.5 x10E3/uL 3.4-10.8 RBC 4.19 x10E6/uL 3.77-5.28 Hemoglobin 12.9 g/dL 11.1-15.9 Hematocrit 38.1 % 34.0-46.6 MCV 91 fL 79-97 MCH 30.8 pg 26.6-33.0 MCHC 33.9 g/dL 31.5-35.7 RDW 14.8 % 12.3-15.4 Platelets 339 x10E3/uL 150-379 Neutrophils 72 % Lymphs 22 % Monocytes 4 % Eos 2 % Basos 0 % Neutrophils (Absolute) 7.5 x10E3/uL 1.4-7.0 Lymphs (Absolute) 2.3 x10E3/uL 0.7-3.1 Monocytes(Absolute) 0.4 x10E3/uL 0.1-0.9 Eos (Absolute) 0.2 x10E3/uL 0.0-0.4 Baso (Absolute) 0.0 x10E3/uL 0.0-0.2 Immature Granulocytes 0 % Immature Grans (Abs) 0.0 x10E3/uL 0.0-0.1 Comp. Metabolic Panel (14) - 05/10/17 11:17 Glucose, Serum 87 mg/dL 65-99 BUN 10 mg/dL 6-20 Creatinine, Serum 0.60 mg/dL 0.57-1.00 eGFR If NonAfricn Am 116 mL/min/1.73 >59 eGFR If Africn Am 134 mL/min/1.73 >59 BUN/Creatinine Ratio 17 9-23 Sodium, Serum 141 mmol/L 134-144 Potassium, Serum 4.6 mmol/L 3.5-5.2 Chloride, Serum 99 mmol/L 96-106 Carbon Dioxide, Total 22 mmol/L 18-29 Calcium, Serum 9.1 mg/dL 8.7-10.2 Protein, Total, Serum 6.9 g/dL 6.0-8.5 Albumin, Serum 4.1 g/dL 3.5-5.5 Globulin, Total 2.8 g/dL 1.5-4.5 A/G Ratio 1.5 1.2-2.2 Bilirubin, Total 0.3 mg/dL 0.0-1.2 Alkaline Phosphatase, S 106 IU/L 39-117 AST (SGOT) 14 IU/L 0-40 ALT (SGPT) 19 IU/L 0-32 Lipid Panel - 05/10/17 11:17 Cholesterol, Total 167 mg/dL 100-199 Triglycerides 137 mg/dL 0-149 HDL Cholesterol 43 mg/dL >39 VLDL Cholesterol Kasi 27 mg/dL 5-40 LDL Cholesterol Calc 97 mg/dL 0-99 CBC With Differential/Platelet - 07/10/17 13:12 WBC 11.8 x10E3/uL 3.4-10.8 RBC 4.34 x10E6/uL 3.77-5.28 Hemoglobin 12.9 g/dL 11.1-15.9 Hematocrit 39.3 % 34.0-46.6 MCV 91 fL 79-97 MCH 29.7 pg 26.6-33.0 MCHC 32.8 g/dL 31.5-35.7 RDW 14.0 % 12.3-15.4 Platelets 415 x10E3/uL 150-379 Neutrophils 75 % Lymphs 20 % Monocytes 4 % Eos 1 % Basos 0 % Neutrophils (Absolute) 8.8 x10E3/uL 1.4-7.0 Lymphs (Absolute) 2.3 x10E3/uL 0.7-3.1 Monocytes(Absolute) 0.5 x10E3/uL 0.1-0.9 Eos (Absolute) 0.2 x10E3/uL 0.0-0.4 Baso (Absolute) 0.0 x10E3/uL 0.0-0.2 Immature Granulocytes 0 % Immature Grans (Abs) 0.0 x10E3/uL 0.0-0.1 Comp. Metabolic Panel (14) - 07/10/17 13:12 Glucose, Serum 94 mg/dL 65-99 BUN 12 mg/dL 6-20 Creatinine, Serum 0.71 mg/dL 0.57-1.00 eGFR If NonAfricn Am 108 mL/min/1.73 >59 eGFR If Africn Am 125 mL/min/1.73 >59 BUN/Creatinine Ratio 17 9-23 Sodium, Serum 138 mmol/L 134-144 Potassium, Serum 4.6 mmol/L 3.5-5.2 Chloride, Serum 96 mmol/L 96-106 Carbon Dioxide, Total 25 mmol/L 18-29 Calcium, Serum 9.7 mg/dL 8.7-10.2 Protein, Total, Serum 7.4 g/dL 6.0-8.5 Albumin, Serum 4.4 g/dL 3.5-5.5 Globulin, Total 3.0 g/dL 1.5-4.5 A/G Ratio 1.5 1.2-2.2 Bilirubin, Total 0.3 mg/dL 0.0-1.2 Alkaline Phosphatase, S 117 IU/L 39-117 AST (SGOT) 18 IU/L 0-40 ALT (SGPT) 22 IU/L 0-32 TSH - 07/10/17 13:12 TSH 1.640 uIU/mL 0.450-4.500 CBC - 07/10/17 13:12 WBC 11.8 x10E3/uL 3.4-10.8 RBC 4.34 x10E6/uL 3.77-5.28 Hemoglobin 12.9 g/dL 11.1-15.9 Hematocrit 39.3 % 34.0-46.6 MCV 91 fL 79-97 MCH 29.7 pg 26.6-33.0 MCHC 32.8 g/dL 31.5-35.7 RDW 14.0 % 12.3-15.4 Platelets 415 x10E3/uL 150-379 Neutrophils 75 % NRG Lymphs 20 % NRG Monocytes 4 % NRG Eos 1 % NRG Basos 0 % NRG Neutrophils (Absolute) 8.8 x10E3/uL 1.4-7.0 Lymphs (Absolute) 2.3 x10E3/uL 0.7-3.1 Monocytes(Absolute) 0.5 x10E3/uL 0.1-0.9 Eos (Absolute) 0.2 x10E3/uL 0.0-0.4 Baso (Absolute) 0.0 x10E3/uL 0.0-0.2 Immature Granulocytes 0 % NRG Immature Grans (Abs) 0.0 x10E3/uL 0.0-0.1 CMP - 07/10/17 13:12 Glucose, Serum 94 mg/dL 65-99 BUN 12 mg/dL 6-20 Creatinine, Serum 0.71 mg/dL 0.57-1.00 eGFR If NonAfricn Am 108 mL/min/1.73 >59 eGFR If Africn Am 125 mL/min/1.73 >59 BUN/Creatinine Ratio 17 9-23 Sodium, Serum 138 mmol/L 134-144 Potassium, Serum 4.6 mmol/L 3.5-5.2 Chloride, Serum 96 mmol/L 96-106 Carbon Dioxide, Total 25 mmol/L 18-29 Calcium, Serum 9.7 mg/dL 8.7-10.2 Protein, Total, Serum 7.4 g/dL 6.0-8.5 Albumin, Serum 4.4 g/dL 3.5-5.5 Globulin, Total 3.0 g/dL 1.5-4.5 A/G Ratio 1.5 1.2-2.2 Bilirubin, Total 0.3 mg/dL 0.0-1.2 Alkaline Phosphatase, S 117 IU/L 39-117 AST (SGOT) 18 IU/L 0-40 ALT (SGPT) 22 IU/L 0-32 Luteinizing Hormone(LH), S - 08/06/17 15:10 LH 6.3 mIU/mL FSH, Serum - 08/06/17 15:10 FSH 7.9 mIU/mL Estradiol - 08/06/17 15:10 Estradiol 53.4 pg/mL Testosterone, Total, LC/MS - 08/06/17 15:10 Testosterone, Total, LC/MS 32 ng/dL Progesterone - 08/06/17 15:10 Progesterone 0.1 ng/mL Insulin - 08/06/17 15:10 Insulin 13.9 uIU/mL 2.6-24.9 TESTOSTERONE, TOTAL (WOMEN, CHILDREN, HYPOGONADAL MALES) - 08/06/17 15:10 Testosterone, Total, LC/MS 32 ng/dL [facility] LIPID PANEL - 11/15/17 09:22 CHOLESTEROL, TOTAL 191 mg/dL <200 HDL CHOLESTEROL 51 mg/dL >50 TRIGLYCERIDES 131 mg/dL <150 LDL-CHOLESTEROL 115 mg/dL (calc) NRG CHOL/HDLC RATIO 3.7 (calc) <5.0 NON HDL CHOLESTEROL 140 mg/dL (calc) <130 CMP - 11/15/17 09:22 GLUCOSE 101 mg/dL 65-99 UREA NITROGEN (BUN) 11 mg/dL 7-25 CREATININE 0.66 mg/dL 0.50-1.10 eGFR NON-AFR. ZAMBIAN 112 mL/min/1.73m2 > OR=60 eGFR 130 mL/min/1.73m2 > OR=60 BUN/CREATININE RATIO NOT APPLICABLE (calc) 6-22 SODIUM 135 mmol/L 135-146 POTASSIUM 4.0 mmol/L 3.5-5.3 CHLORIDE 98 mmol/L 98-110 CARBON DIOXIDE 27 mmol/L 20-31 CALCIUM 9.3 mg/dL 8.6-10.2 PROTEIN, TOTAL 6.9 g/dL 6.1-8.1 ALBUMIN 4.1 g/dL 3.6-5.1 GLOBULIN 2.8 g/dL (calc) 1.9-3.7 ALBUMIN/GLOBULIN RATIO 1.5 (calc) 1.0-2.5 BILIRUBIN, TOTAL 0.4 mg/dL 0.2-1.2 ALKALINE PHOSPHATASE 94 U/L 33-115 AST 16 U/L 10-30 ALT 15 U/L 6-29 Encounters ACCT No. Visit Date/Time Discharge Status Pt. Type Provider Facility Loc./Unit Complaint [id number] 11/12/2014 14:49:00 11/12/2014 23:59:59 CLS Outpatient ELDA SANCHEZ DO [id number] 09/23/2014 13:51:00 09/23/2014 23:59:59 CLS Outpatient OSVALDO RODRIGUEZ PSYD [id number] 09/09/2014 12:50:00 09/09/2014 23:59:59 CLS Outpatient ELDA SANCHEZ DO [id number] 08/31/2014 16:50:00 08/31/2014 23:59:59 CLS Outpatient ELDA SANCHEZ DO [id number] 08/03/2014 12:55:00 08/03/2014 23:59:59 CLS Outpatient OSVALDO RODRIGUEZ PSYD [id number] 07/06/2014 12:44:00 07/06/2014 23:59:59 CLS Outpatient ELDA SANCHEZ DO [id number] 06/29/2014 14:34:00 06/29/2014 23:59:59 CLS Outpatient SANCHEZ DOELDA [id number] 06/24/2014 13:02:00 06/24/2014 23:59:59 CLS Outpatient SANCHEZ DOELDA [id number] 06/22/2014 14:07:00 06/22/2014 23:59:59 CLS Outpatient SANCHEZ DOELDA [id number] 05/06/2014 13:25:00 05/06/2014 23:59:59 CLS Outpatient OSVALDO RODRIGUEZ PSYD [id number] 05/05/2014 13:48:00 05/05/2014 23:59:59 CLS Outpatient OSVALDO RODRIGUEZ PSYD [id number] 05/03/2014 11:34:00 05/03/2014 23:59:59 CLS Outpatient SANCHEZ DOELDA [id number] 04/26/2014 11:10:00 04/26/2014 23:59:59 CLS Outpatient OSVALDO RODRIGUEZ PSYD [id number] 04/19/2014 08:58:00 04/19/2014 23:59:59 CLS Outpatient OSVALDO RODRIGUEZ PSYD [id number] 02/02/2014 16:42:00 02/02/2014 23:59:59 CLS Outpatient SANCHEZ DOELDA [id number] 01/08/2014 11:09:00 01/08/2014 23:59:59 CLS Outpatient OSVALDO RODRIGUEZ PSYD [id number] 11/12/2013 13:25:00 11/12/2013 23:59:59 CLS Outpatient JAZMIN CHRISTENSENROD Browne [id number] 08/31/2013 13:41:00 08/31/2013 23:59:59 CLS Outpatient SANCHEZ DOELDA [id number] 08/18/2013 11:42:00 08/18/2013 23:59:59 CLS Outpatient SANCHEZ DOELDA [id number] 06/10/2013 08:49:00 06/10/2013 23:59:59 CLS Outpatient LAURA DOELDA [id number] 12/22/2012 13:53:00 12/22/2012 23:59:59 CLS Outpatient MCCLECRISTIANAY OSVALDO DORAN [id number] 12/08/2012 10:05:00 12/08/2012 23:59:59 CLS Outpatient SANCHEZ DOELDA [id number] 11/10/2012 08:53:00 11/10/2012 23:59:59 CLS Outpatient OSVALDO RODRIGUEZ PSYD [id number] 11/06/2012 10:44:00 11/06/2012 23:59:59 CLS Outpatient LAURA EMERY ELDA Mckee [id number] 09/25/2012 16:58:00 09/25/2012 23:59:59 CLS Outpatient OSVALDO INGRAMTAVON Lizette 276 08/11/2012 15:57:00 08/11/2012 23:59:59 CLS Outpatient OSVALDO RODRIGUEZ PSYD [id number] 05/07/2013 11:18:00 Document Registration [id number] 04/07/2013 10:55:00 Document Registration [id number] 03/10/2013 16:25:00 Document Registration [id number] 02/25/2013 16:40:00 Document Registration [id number] 08/09/2017 17:08:00 Document Registration [id number] 07/28/2015 10:32:40 ACT Document Registration [id number] 10/10/2016 08:38:00 Document Registration [id number] 05/11/2017 08:06:00 Document Registration [id number] 07/11/2017 08:44:00 Document Registration [id number] 03/05/2018 13:00:00 03/05/2018 23:59:59 CLS Outpatient GAMAL CLARK [facility] [id number] 11/15/2017 10:20:00 Document Registration [id number] 08/06/2017 14:00:00 Document Registration [id number] 07/10/2017 12:45:00 Document Registration [id number] 10/11/2017 07:23:00 10/11/2017 23:59:59 CLS Outpatient GAMAL CLARK MD [facility] RAD LT BREAST MASS [id number] 09/17/2017 21:00:00 09/17/2017 23:59:59 CLS Preadmit ALCIDES RAMESH DO [facility] SLEEP G47.33 OBSTRUCTIVE SLEEP APNEA [id number] 08/19/2016 22:50:00 08/20/2016 00:49:00 DIS Emergency ED OVIEDO DO [facility] ER HIGH FEVER [id number] 08/18/2016 12:51:00 08/18/2016 16:10:00 DIS Emergency MARTHA HEALYP [facility] ER BODY ACHES/COUGH/CHILLS [id number] 01/06/2016 10:13:00 01/06/2016 23:59:59 CLS Outpatient KAITLYNN SALDANA [facility] RAD LT SIDED ABD PAIN [id number] 07/28/2015 10:30:00 07/28/2015 23:59:59 CLS Outpatient BIBIANA DE LA VEGA [facility] CARD CP,HTN.,HLP [id number] 05/01/2015 04:26:00 05/01/2015 05:20:00 DIS Emergency ED OVIEDO DO [facility] ER ABD PAIN [id number] 06/21/2014 12:47:00 06/21/2014 14:37:00 DIS Emergency MARI OSORIO APRN [facility] ER LIGHT HEADED HIGH BLOOD PRESSURE [id number] 08/01/2015 08:21:00 Document Registration [id number] 05/01/2015 04:26:00 Document Registration [id number] 05/01/2015 04:26:00 Document Registration
[2018-04-01] MEDS ORDERED: PROMETHAZINE INJ 25 MG/ML (PHENERGAN) AMP IVP ONE (14:45)
[2018-04-01 14:51] LABS: BASOPHILS % (AUTO) 0 % (0-10); EOSINOPHILS # (AUTO) 0.2 10^3/uL (0.0-0.3); EOSINOPHILS % (AUTO) 2 % (0-10); HEMATOCRIT 35 % (35-52); HEMOGLOBIN 12.4 G/DL (11.5-16.0); LYMPHOCYTES # (AUTO) 1.5 X 10^3 (1.0-4.0); LYMPHOCYTES % (AUTO) 15 % (12-44); MEAN CORPUSCULAR HEMOGLOBIN 30 PG (25-34); MEAN CORPUSCULAR HGB CONC 35 G/DL (32-36); MEAN CORPUSCULAR VOLUME 86 FL (80-99); MEAN PLATELET VOLUME 10.9 FL (7.4-10.4); MONOCYTES # (AUTO) 0.5 X 10^3 (0.0-1.0); MONOCYTES % (AUTO) 5 % (0-12); NEUTROPHILS # (AUTO) 7.6 X 10^3 (1.8-7.8); NEUTROPHILS % (AUTO) 79 % (42-75); PLATELET COUNT 299 10^3/uL (130-400); WHITE BLOOD COUNT 9.7 10^3/uL (4.3-11.0)
[2018-04-01 15:10] LABS: BILIRUBIN,URINE NEGATIVE (NEGATIVE); CLARITY,URINE CLEAR; COLOR,URINE YELLOW; GLUCOSE, URINE (UA) NEGATIVE (NEGATIVE); KETONES,URINE NEGATIVE (NEGATIVE); LEUKOCYTE ESTERASE ,URINE 1+ (NEGATIVE); NITRITE,URINE NEGATIVE (NEGATIVE); PH,URINE 5 (5-9); PROTEIN,URINE 1+ (NEGATIVE); UROBILINOGEN,URINE NORMAL (NORMAL)
[2018-04-01 15:17] LABS: BACTERIA,URINE MODERATE /HPF
--- NOTE | 2018-04-01 15:17 | ED General ---
General Chief Complaint: Dizziness/Syncope Stated Complaint: NAUSEA,DIZZY,DRY MOUTHED Source of Information: Patient Exam Limitations: No Limitations History of Present Illness Date Seen by Provider: Apr 01, 2018 Time Seen by Provider: 15:00 Initial Comments to ER with reports of nausea without vomiting, dizziness worse with movement, dry mouth, lower abdominal cramping. The symptoms began earlier today. She does have a history of anxiety and so she took half of one of her lorazepam tablets but denies any improvement and states that normally this does improve her anxiety. She denies diarrhea or constipation. Denies dysuria. Denies fevers or chills. Timing/Duration: 4-6 Hours Severity: Moderate Associated Systoms: Nausea/Vomiting Allergies and Home Medications Allergies Coded Allergies: amoxicillin (Unverified Allergy, Unknown, 05/01/15) Home Medications Alprazolam 0.5 Mg Tablet, 1 TAB PO TID PRN PRN, (Reported) Azithromycin 500 Mg Tablet, 500 MG PO DAILY FOR INFECTION Prescribed by: ED OVIEDO on 08/20/1618 Benzonatate 100 Mg Capsule, 1-2 TAB PO TID Prescribed by: ED OVIEDO on 08/20/1618 Cefdinir 300 Mg Capsule, 300 MG PO BID Prescribed by: ED OVIEDO on 08/20/1618 Duloxetine Hcl 30 Mg Capsule.dr, 1 EACH PO DAILY, (Reported) Duloxetine Hcl 60 Mg Capsule.dr, 1 CAP PO DAILY, (Reported) Nadolol 40 Mg Tab, 1 EACH PO DAILY, (Reported) Triamterene/Hydrochlorothiazid 1 Each Tablet, 1 EACH PO DAILY, (Reported) Patient Home Medication List Home Medication List Reviewed: Yes Review of Systems Constitutional: see HPI EENTM: see HPI Respiratory: no symptoms reported Cardiovascular: no symptoms reported Genitourinary: no symptoms reported Musculoskeletal: no symptoms reported Skin: no symptoms reported Psychiatric/Neurological: See HPI Past Iummssv-Jqgtcx-Lfwiwa Hx Patient Social History Recent Foreign Travel: No Contact w/Someone Who Travel: No Recent Hopitalizations: No Immunizations Up To Date Tetanus Booster (TDap): Unknown Seasonal Allergies Seasonal Allergies: No Past Medical History Section, Rectal, Tonsillectomy, Tubal Ligation Hypertension Reproductive Disorders: No Female Reproductive Disorders: Ovarian Cyst Gastroesophageal Reflux, Ulcer Tonsilitis Anxiety, Depression Adverse Reaction/Blood Tranf: No Physical Exam Vital Signs Vital Signs - First Documented 04/01/18 14:29 Temp 97.9 Pulse 93 Resp 20 B/P (MAP) 146/92 (110) O2 Delivery Room Air Capillary Refill : General Appearance: No Apparent Distress, WD/WN, Other (tearful) Eyes: Bilateral Eye Normal Inspection, Bilateral Eye PERRL HEENT: PERRL/EOMI, TMs Normal Neck: Full Range of Motion, Normal Inspection Respiratory: No Accessory Muscle Use, No Respiratory Distress Cardiovascular: Regular Rate, Rhythm, Normal Peripheral Pulses Gastrointestinal: Normal Bowel Sounds, Non Tender, Other (minimal RLQ tenderness) Extremity: Normal Capillary Refill, Normal Inspection Neurologic/Psychiatric: Alert, Oriented x3, No Motor/Sensory Deficits Skin: Normal Color, Warm/Dry Progress/Results/Core Measures Suspected Sepsis SIRS Temperature: Pulse: Respiratory Rate: Laboratory Tests 04/01/18 14:38: White Blood Count 9.7 Blood Pressure / Mean: Laboratory Tests 04/01/18 14:38: Creatinine 0.78, Platelet Count 299, Total Bilirubin 0.3 Results/Orders Lab Results Laboratory Tests Test 04/01/18 14:38 04/01/18 14:55 Range/Units White Blood Count 9.7 4.3-11.0 10^3/uL Red Blood Count 4.10 L 4.35-5.85 10^6/uL Hemoglobin 12.4 11.5-16.0 G/DL Hematocrit 35 35-52 % Mean Corpuscular Volume 86 80-99 FL Mean Corpuscular Hemoglobin 30 25-34 PG Mean Corpuscular Hemoglobin Concent 35 32-36 G/DL Red Cell Distribution Width 14.0 10.0-14.5 % Platelet Count 299 130-400 10^3/uL Mean Platelet Volume 10.9 H 7.4-10.4 FL Neutrophils (%) (Auto) 79 H 42-75 % Lymphocytes (%) (Auto) 15 12-44 % Monocytes (%) (Auto) 5 0-12 % Eosinophils (%) (Auto) 2 0-10 % Basophils (%) (Auto) 0 0-10 % Neutrophils # (Auto) 7.6 1.8-7.8 X 10^3 Lymphocytes # (Auto) 1.5 1.0-4.0 X 10^3 Monocytes # (Auto) 0.5 0.0-1.0 X 10^3 Eosinophils # (Auto) 0.2 0.0-0.3 10^3/uL Basophils # (Auto) 0.0 0.0-0.1 10^3/uL Sodium Level 139 135-145 MMOL/L Potassium Level 3.3 L 3.6-5.0 MMOL/L Chloride Level 103 98-107 MMOL/L Carbon Dioxide Level 27 21-32 MMOL/L Anion Gap 9 5-14 MMOL/L Blood Urea Nitrogen 14 7-18 MG/DL Creatinine 0.78 0.60-1.30 MG/DL Estimat Glomerular Filtration Rate > 60 BUN/Creatinine Ratio 18 Glucose Level 133 H 70-105 MG/DL Calcium Level 9.7 8.5-10.1 MG/DL Total Bilirubin 0.3 0.1-1.0 MG/DL Aspartate Amino Transf (AST/SGOT) 13 5-34 U/L Alanine Aminotransferase (ALT/SGPT) 18 0-55 U/L Alkaline Phosphatase 100 40-136 U/L Total Protein 7.8 6.4-8.2 GM/DL Albumin 4.3 3.2-4.5 GM/DL Lipase 31 8-78 U/L Serum Test, Qualitative NEGATIVE NEGATIVE Urine Color YELLOW Urine Clarity CLEAR Urine pH 5 5-9 Urine Specific [place] 1.025 H 1.016-1.022 Urine Protein 1+ H NEGATIVE Urine Glucose (UA) NEGATIVE NEGATIVE Urine Ketones NEGATIVE NEGATIVE Urine Nitrite NEGATIVE NEGATIVE Urine Bilirubin NEGATIVE NEGATIVE Urine Urobilinogen NORMAL NORMAL MG/DL Urine Leukocyte Esterase 1+ H NEGATIVE Urine RBC (Auto) NEGATIVE NEGATIVE Urine RBC NONE /HPF Urine WBC 2-5 /HPF Urine Squamous Epithelial Cells 10-25 H /HPF Urine Crystals PRESENT H /LPF Urine Amorphous Sediment RARE RICK URATES H /LPF Urine Bacteria MODERATE H /HPF Urine Casts NONE /LPF Urine Mucus NEGATIVE /LPF Urine Culture Indicated YES My Orders Orders - MARI OSORIO APRN Ua Culture If Indicated (04/01/18 14:27) Urine Bedside (04/01/18 14:27) Cbc With Automated Diff (04/01/18 14:27) Comprehensive Metabolic Panel (04/01/18 14:27) Lipase (04/01/18 14:27) Iv Heplock-Insert (Order) (04/01/18 14:27) Ns Iv 1000 Ml (Sodium Chloride 0.9%) (04/01/18 14:30) Ondansetron Injection (Zofran Injectio (04/01/18 14:30) Promethazine Injection (Phenergan Injec (04/01/18 14:45) Hcg,Qualitative Serum (04/01/18 15:14) Urine Culture (04/01/18 14:55) Ct Abd/Pelv W (Appendicitis) (04/01/18 15:24) Iohexol Injection (Omnipaque 350 Mg/Ml 1 (04/01/18 15:30) Ns (Ivpb) (Sodium Chloride 0.9%) (04/01/18 15:30) Medications Given in ED Current Medications Medications Dose Ordered Sig/Mihai Route Start Time Stop Time Status Last Admin Dose Admin Iohexol 100 ml ONCE ONCE IV 04/01/18 15:30 04/01/18 15:31 DC 04/01/18 15:45 100 ML Ondansetron HCl 4 mg ONCE ONCE IVP 04/01/18 14:30 04/01/18 14:31 DC 04/01/18 14:51 4 MG Promethazine HCl 12.5 mg ONCE ONCE IVP 04/01/18 14:45 04/01/18 14:46 DC 04/01/18 14:51 12.5 MG Sodium Chloride 250 ml ONCE ONCE IV 04/01/18 15:30 04/01/18 15:31 DC 04/01/18 15:45 80 ML Vital Signs/I&O 04/01/18 14:29 Temp 97.9 Pulse 93 Resp 20 B/P (MAP) 146/92 (110) O2 Delivery Room Air Capillary Refill : Diagnostic Imaging Diagonstic Imaging: Xray Comments NAME: JANNIE METZ [facility] REC#: [id number] PT STATUS: REG ER : 1980 PHYSICIAN: MARI OSORIO APRN ADMIT DATE: 04/01/18/ER Draft Date of Exam:04/01/18 CT ABD/PELV W (APPENDICITIS) PROCEDURE: CT abdomen and pelvis with contrast, rule out appendicitis. TECHNIQUE: Multiple contiguous axial images were obtained through the abdomen and pelvis after the administration of intravenous contrast. INDICATION: Lower midline abdominal pain. Dizzy with blurred vision. CORRELATION STUDY: CT abdomen 01/06/2016. FINDINGS: LOWER THORAX: Clear. LIVER: Enlarged with hepatic steatosis. GALLBLADDER: Contracted but otherwise unremarkable. This is likely owing to recent meal ingestion. SPLEEN: Unremarkable. PANCREAS: Unremarkable. ADRENAL GLANDS: Unremarkable. KIDNEYS: Normal configuration. No calcification or obstruction. ABDOMINAL AORTA: Unremarkable, nonaneurysmal. GASTROINTESTINAL TRACT: Gastrointestinal tract demonstrates no obstruction. No definitive inflammation. The appendix could not be well identified. However, no focal pericecal inflammatory type changes suggested. URINARY BLADDER: Unremarkable. REPRODUCTIVE: Uterus and adnexa appear unremarkable. No significant free pelvic fluid. OSSEOUS STRUCTURES: Negative for acute bony abnormality. A few scattered sclerotic foci are nonspecific. OTHER: None. IMPRESSION: 1. Negative for acute abnormality of the abdomen or pelvis. The appendix is not definitively localized. However, no focal right lower quadrant inflammatory type changes. 2. Hepatomegaly with hepatic steatosis. Dictated on workstation # [id number] Dict: 04/01/18 1602 Trans: 04/01/18 1617 [id number] Interpreted by: FRANKLIN FARRAR DO Electronically signed by: Departure Impression Primary Impression: Nausea Additional Impressions: Abdominal cramping Anxiety Disposition: 01 HOME, SELF-CARE Condition: Stable Departure-Patient Inst. Decision time for Depature: 16:28 Referrals: GAMAL CLARK MD (PCP/Family) Primary Care Physician Patient Instructions: NO INSTRUCTIONS GIVEN Add. Discharge Instructions: 1. Return to ER for any concerns 2. Follow-up with your doctor later next week 3.All discharge instructions reviewed with patient and/or family. Voiced understanding. Scripts Ondansetron (Zofran Odt) 8 Mg Tab.rapdis 8 MG PO Q6H PRN for NAUSEA/VOMITING-1ST LINE, #10 TAB Prov: MARI OSORIO TANK PUMPER PANELBOARD 04/01/18 MARI OSORIO TANK PUMPER PANELBOARD Apr 01, 2018 15:17
[2018-04-01 15:18] LABS: AMORPHOUS SEDIMENT,UR RARE AMOR URATES /LPF
[2018-04-01 15:20] LABS: ALANINE AMINOTRANSFERASE 18 U/L (0-55); ALBUMIN 4.3 GM/DL (3.2-4.5); ALKALINE PHOSPHATASE 100 U/L (40-136); BILIRUBIN,TOTAL 0.3 MG/DL (0.1-1.0); BUN/CREATININE RATIO 18; CALCIUM 9.7 MG/DL (8.5-10.1); CARBON DIOXIDE 27 MMOL/L (21-32); CHLORIDE 103 MMOL/L (98-107); CREATININE SERUM 0.78 MG/DL (0.60-1.30); GFR ESTIMATED > 60; GLUCOSE 133 MG/DL (70-105); LIPASE 31 U/L (8-78); POTASSIUM 3.3 MMOL/L (3.6-5.0); SODIUM 139 MMOL/L (135-145); TOTAL PROTEIN 7.8 GM/DL (6.4-8.2)
[2018-04-01] MEDS ORDERED: IOHEXOL 350 MG/ML 100 ML (OMNIPAQUE 350) VIAL IV ONE (15:30)
[2018-04-01] MEDS ORDERED: NS 250 ML (IVPB) BAG IV ONE (15:30)
--- NOTE | 2018-04-01 16:18 | Diagnostic Imaging Report ---
PROCEDURE: CT abdomen and pelvis with contrast, rule out appendicitis. TECHNIQUE: Multiple contiguous axial images were obtained through the abdomen and pelvis after the administration of intravenous contrast. INDICATION: Lower midline abdominal pain. Dizzy with blurred vision. CORRELATION STUDY: CT abdomen 01/06/2016. FINDINGS: LOWER THORAX: Clear. LIVER: Enlarged with hepatic steatosis. GALLBLADDER: Contracted but otherwise unremarkable. This is likely owing to recent meal ingestion. SPLEEN: Unremarkable. PANCREAS: Unremarkable. ADRENAL GLANDS: Unremarkable. KIDNEYS: Normal configuration. No calcification or obstruction. ABDOMINAL AORTA: Unremarkable, nonaneurysmal. GASTROINTESTINAL TRACT: Gastrointestinal tract demonstrates no obstruction. No definitive inflammation. The appendix could not be well identified. However, no focal pericecal inflammatory type changes suggested. URINARY BLADDER: Unremarkable. REPRODUCTIVE: Uterus and adnexa appear unremarkable. No significant free pelvic fluid. OSSEOUS STRUCTURES: Negative for acute bony abnormality. A few scattered sclerotic foci are nonspecific. OTHER: None. IMPRESSION: 1. Negative for acute abnormality of the abdomen or pelvis. The appendix is not definitively localized. However, no focal right lower quadrant inflammatory type changes. 2. Hepatomegaly with hepatic steatosis. Dictated by: Dictated on workstation # [id number]
[2018-04-01] MEDS ORDERED: ONDA8TAB9 PO (16:29)
[2018-04-01 16:49] VITALS: BP 107/57
== END 2018-04-01 16:48 | disposition home or self-care (01) ==
LOC: EDUNIT# 14:24 → ER 14:26
DX: R11.0 Nausea (principal); R10.31 Right lower quadrant pain; F41.9 Anxiety disorder, unspecified; I10 Essential (primary) hypertension; K21.9 Gastro-esophageal reflux disease without esophagitis; F32.9 Major depressive disorder, single episode, unspecified; Z87.19 Personal history of other diseases of the digestive system; Z88.0 Allergy status to penicillin; Z98.51 Tubal ligation status; Z90.89 Acquired absence of other organs
CPT/HCPCS: 36415; 74177; 80053; 81000; 83690; 84703; 85025; 87088; 96361; 96374; 96375

== ENCOUNTER → 2018-05-05 | Outpatient (CLI) | payer OTHER ==
[~2018-05-05] MED LIST changes: +ONDA8TAB9 PO
--- NOTE | 2018-05-05 17:47 | Diagnostic Imaging Report ---
INDICATION: Six-month followup bilateral breast densities as well as left breast pain. Correlation is made with prior mammogram from 10/11/2017. 2-D and 3-D bilateral diagnostic mammography was performed. The current study was also evaluated with a Computer Aided Detection (CAD) system. FINDINGS: Scattered fibroglandular densities are identified bilaterally. Previously noted circumscribed nodular densities in the upper-outer right breast are stable and most consistent with intramammary lymph nodes. The area of parenchymal asymmetry in the upper outer left breast also appears stable and slightly less prominent on this current study. No new mass or malignant-appearing microcalcifications are seen. The axillae are unremarkable. IMPRESSION: Stable bilateral mammograms. Additional six-month followup is recommended to show continued stability. ACR BI-RADS Category 3: Probably benign findings. Result letter will be mailed to the patient. Note: At least 10% of breast cancer is not imaged by mammography. Dictated by: Dictated on workstation # [id number]
== END ==
LOC: RAD 13:16
PROVIDERS: ATTEND Family Medicine
DX: N63.20 Unspecified lump in the left breast, unspecified quadrant (principal)
CPT/HCPCS: 76641; 77066

== ENCOUNTER 2018-05-09 21:06 | Outpatient (CLI) | payer SELFPAY | END 2018-05-10 06:48 | disposition home or self-care (01) | LOC: SLEEP 21:06 | PROVIDERS: ATTEND Family Medicine | DX: G47.33 Obstructive sleep apnea (adult) (pediatric) (principal) | CPT/HCPCS: 95811 ==

== ENCOUNTER 2018-07-11 05:34 | Outpatient (CLI) | payer BC ==
[~2018-07-11] VITALS: Ht 162.6 cm; Wt 107.0 kg
[~2018-07-11 05:34] MED LIST changes: -BENZ-13 PO; +BENZ100C18 PO
[2018-07-11] MEDS ORDERED: BUSP15TA60 PO (10:14)
[2018-07-11] MEDS ORDERED: DULO30CA48 PO (10:14)
[2018-07-11] MEDS ORDERED: NADO40TA PO (10:14)
[2018-07-11] MEDS ORDERED: DULO60CA58 PO (10:14)
[2018-07-11] MEDS ORDERED: TRIA1TAB PO (10:14)
== END 2018-07-11 10:18 | disposition home or self-care (01) ==
LOC: PREOP 05:34
PROVIDERS: ATTEND Surgery
DX: Z01.818 Encounter for other preprocedural examination (principal)

== ENCOUNTER 2018-08-05 07:43 | Day surgery (SDC) | payer BC ==
[~2018-08-05] VITALS: Ht 162.6 cm; Wt 107.0 kg
[~2018-08-05 07:43] MED LIST changes: +BUSP15TA60 PO; +DULO30CA48 PO; +DULO60CA58 PO; +NADO40TA PO; +TRIA1TAB PO
--- OUTSIDE RECORDS SUMMARY | 2018-08-05 07:48 | XMS REPORT ---
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 [employer] Name Role Phone GAMAL CLARK Unavailable PROBLEMS Type Condition ICD9-CM Code EZU22-ZG Code Onset Dates Condition Status SNOMED Code Problem Rectal bleed K62.5 Active 45000438 Problem Dry eyes H04.123 Active 641342823 Problem Body mass index (BMI) of 40.0-44.9 in adult Z68.41 Active 181667205 Problem Sleep apnea in adult G47.33 Active 01143219 Problem Anal fissure K60.2 Active 27320434 Problem Chronic fatigue R53.82 Active 27818579 Problem Hypertension I10 Active 49625547 ALLERGIES No Information ENCOUNTERS Encounter Location Date Diagnosis [facility] [id number] [place] [address] 76434- 7407 May, Hypertension I10 [facility] [id number] [place] [address] 16285- 9511 May, Generalized anxiety disorder 300.02 [facility] [id number] [place] [address] 41615- 4114 Apr, Sleep apnea in adult G47.33 ; Hypertension I10 and Dry eyes H04.123 [facility] [id number] [place] [address] 23454- 2420 Apr, [facility] [id number] [place] [address] 90618- 6348 Apr, [facility] [id number] [place] [address] 11851- 9563 Apr, Generalized anxiety disorder 300.02 [facility] [id number] [place] [address] 66102- 6381 Apr, Generalized anxiety disorder F41.1 [facility] [id number] [place] [address] 03452- 3825 Apr, Left breast mass N63.20 [facility] [id number] [place] [address] 35943- 8714 Apr, Generalized anxiety disorder F41.1 [facility] [id number] [place] [address] 83921- 6961 Mar, Generalized anxiety disorder 300.02 [facility] [id number] [place] [address] 40023- 2733 Mar, [facility] [id number] [place] [address] 07583- 4077 Mar, Generalized anxiety disorder 300.02 [facility] [id number] [place] [address] 20106- 2693 Mar, Acute serous otitis media of left ear, recurrence not specified H65.02 ; Dizziness R42 and BMI 40.0-44.9, adult Z68.41 [facility] [id number] [place] [address] 97866- 3490 February, Hypertension I10 [facility] [id number] [place] [address] 93766- 4717 February, Visit for TB skin test Z11.1 ; Encounter for physical examination related to employment Z02.1 ; Hypertension I10 ; Generalized anxiety disorder F41.1 ; BMI 40.0-44.9, adult Z68.41 and Chronic fatigue R53.82 [facility] [id number] [place] [address] 39530- 4390 February, Rectal bleeding K62.5 and BMI 40.0-44.9, adult Z68.41 [facility] [id number] [place] [address] 16710- 1942 Jan, BMI 40.0-44.9, adult Z68.41 and Skin irritation R23.8 [facility] [id number] [place] [address] 60873- 2030 Jan, Generalized anxiety disorder F41.1 [facility] [id number] [place] [address] 67347- 8789 Dec, [facility] [id number] [place] [address] 98652- 6367 Nov, Body mass index (BMI) of 40.0-44.9 in adult Z68.41 ; Hypertension I10 and Seasonal allergic rhinitis, unspecified trigger J30.2 [facility] [id number] [place] [address] 65977- 4820 Nov, Hypertension I10 [facility] [id number] [place] [address] 02395- 7240 Nov, Generalized anxiety disorder 300.02 [facility] [id number] [place] [address] 22214- 1828 Nov, [facility] [id number] [place] [address] 71147- 1570 Oct, [facility] [id number] [place] [address] 89682- 0511 Oct, [facility] [id number] [place] [address] 67052- 6679 Oct, Acute chest wall pain R07.89 [facility] [id number] [place] [address] 83005- 1971 Oct, [facility] [id number] [place] [address] 23923- 6145 Sep, Left breast mass N63.20 [facility] [id number] [place] [address] 28331- 3564 Sep, Left breast mass N63.20 [facility] [id number] [place] [address] 87498- 4793 Aug, Hypertension I10 [facility] [address] [place] [address]- 1605 Aug, Generalized anxiety disorder 300.02 [facility] [address] 89769- 1890 Jul, Generalized anxiety disorder 300.02 [facility] [id number] [place] [address] 31446- 4588 Jul, Sleep apnea in adult G47.33 [facility] [address] 77571- 7340 Jul, Hypertension I10 ; Sleep apnea in adult G47.33 ; Body mass index (BMI) of 40.0-44.9 in adult Z68.41 ; Morbid (severe) obesity due to excess calories E66.01 and Female hirsutism L68.0 [facility] [id number] [place] [address] 42883- 7382 Jul, Generalized anxiety disorder 300.02 [facility] [address] 70182- 3447 Jul, Generalized anxiety disorder 300.02 [facility] [address] 54468 -7062 Jun, Chronic fatigue R53.82 [facility] [id number] [place] [address] 00899- 6109 Jun, Generalized anxiety disorder F41.1 [facility] [address] 53143- 1991 May, Generalized anxiety disorder 300.02 [facility] [id number] [place] [address] 85459- 3588 Apr, Generalized anxiety disorder F41.1 ; Hypertension I10 ; Hyperlipidemia E78.5 ; Female hirsutism L68.0 and Sleep apnea in adult G47.33 [facility] [id number] [place] [address] 48921- 9591 Mar, Hypertension I10 and Generalized anxiety disorder F41.1 [facility] [id number] [place] [address] 09230- 8317 Mar, [facility] [id number] [place] [address] 85113- 5698 February, Hypertension I10 and Generalized anxiety disorder F41.1 [facility] [id number] [place] [address] 91176- 9092 February, Generalized anxiety disorder 300.02 [facility] [id number] [place] [address] 26950 -7874 February, Pelvic pain R10.2 and Painful bladder spasm R30.1 [facility] [address] 77967- 0712 Jan, Generalized anxiety disorder 300.02 [facility] [id number] [place] [address] 43556- 9788 Dec, Obesity, unspecified E66.9 ; Generalized anxiety disorder F41.1 and Hypertension I10 [facility] [id number] [place] [address] 51126- 9156 15 Nov, 2016 Generalized anxiety disorder F41.1 ; Hypertension I10 ; Depression F32.9 and Obesity, unspecified E66.9 [facility] [id number] [place] [address] 52568- 9951 Nov, Generalized anxiety disorder 300.02 [facility] [id number] [place] [address] 98954- 7350 Oct, [facility] [id number] [place] [address] 86435- 0442 Sep, History of pneumonia Z87.01 ; Hypokalemia E87.6 ; Hypertension I10 and Encounter for immunization Z23 [facility] [id number] [place] [address] 04653- 8634 Jul, [facility] [id number] [place] [address] 76189- 9350 Apr, Hypertension I10 ; Hypercholesteremia E78.0 ; Obesity, unspecified E66.9 ; Anxiety F41.9 and Lumbago M54.5 [facility] [address] [place] [address] 00442- 4448 Apr, Depression F32.9 [facility] [id number] [place] [address] 42457- 8848 Mar, Essential (primary) hypertension I10 [place] [place] [id number] [address] Jan [facility] [id number] [place] [address] 15258- 3330 Dec, [facility] [id number] [place] [address] 57168- 7930 Dec, Generalized anxiety disorder F41.1 and Hypertension I10 [facility] [id number] [place] [address] 58223- 4880 Dec, [facility] [id number] [place] [address] 24766- 3934 Dec, Abdominal pain R10.9 [facility] [id number] [place] [address] 77278- 7807 Dec, Left sided abdominal pain of unknown cause R10.30 [facility] [id number] [place] [address] 51810- 2144 Nov, Generalized anxiety disorder 300.02 [facility] [id number] [place] [address] 81852- 3946 Nov, Female hirsutism L68.0 ; Hypertension I10 ; Hyperlipidemia E78.5 ; Depression F32.9 and Anxiety F41.9 [facility] [address] [place] [address] 25731- 0678 Oct, [facility] [address] [place] [address] 07962- 7862 Oct, [facility] [id number] [place] [address] 10128- 0559 Oct, [facility] [address] 48062- 9474 Oct, [facility] [id number] [place] [address] 89613- 1814 Oct, Well woman exam Z01.419 ; Encounter [...] unspecified obesity severity, unspecified obesity type E66.9 [facility] [id number] [place] [address] 02380- 4421 Jun, Generalized anxiety disorder 300.02 [facility] [id number] [place] [address] 49564- 0844 Jun, Chest pain 786.50 ; Hypertension 401.9 ; Hyperlipemia 272.4 and Obesity 278.00 [facility] [id number] [place] [address] 09401- 3569 Apr, Generalized anxiety disorder 300.02 [facility] [id number] [place] [address] 94623- 1608 Apr, Generalized anxiety disorder 300.02 [facility] [id number] [place] [address] 67743- 0989 Apr, [facility] [id number] [place] [address] 95146- 1083 Apr, [facility] [id number] [place] [address] 30414- 0767 Apr, Abdominal pain 789.00 ; Dehydration 276.51 ; Generalized anxiety disorder 300.02 ; Other and unspecified bipolar disorders 296.89 ; Obesity, unspecified 278.00 ; Family history of hypercholesterolemia V18.19 ; Diarrhea 787.91 ; Sleep apnea in adult 327.23 and Essential hypertension 401.9 [facility] [id number] [place] [address] 436454- 5428 Mar, Generalized anxiety disorder 300.02 [facility] [id number] [place] [address] 719226- 0634 February, [facility] [address] 54210- 7684 Jan, [facility] [id number] [place] [address] 58742- 6298 Jan, [facility] [id number] [place] [address] 72837- 8604 Oct, [facility] [id number] [place] [address] 134766- 7476 Oct, [facility] [id number] [place] [address] 87171- 6070 Oct, [facility] [id number] [place] [address] 81837- 8262 Oct, [facility] [id number] [place] [address] 24064- 9986 Sep, [facility] [id number] [place] [address] 06733- 7525 Sep, [facility] [id number] [place] [address] 34566- 5213 Sep, [facility] [id number] [place] [address] 989658- 0804 Sep, [facility] [id number] [place] [address] 46982256- 5748 Sep, [facility] [id number] [place] [address] 77371- 7436 Sep, [facility] [id number] [place] [address] 98180- 9216 Sep, [facility] [place] [facility] [address] [id number] [place] [address]- 1086 Aug, [facility] [place] [facility] [address] [id number] [place] [address]- 1825 Aug, [facility] [place] [facility] [address] [id number] [place] [address]- 0036 Aug, [facility] [place] [facility] [address] [id number] [place] 6226 Aug, [facility] [place] [facility] [address] [id number] [place] [address]- 3224 Jul, [facility] [place] [facility] [address] [id number] [place] [address]- 0955 Jul, [facility] [place] [facility] [address] [id number] [place] [address]- 0901 Jul, [facility] [place] [facility] [address] [id number] [place] [address]- 1688 Jul, [facility] [place] [facility] [address] [id number] [place] [address]- 1896 Jul, [facility] [place] [facility] [address] [id number] [place] [address]- 5626 Jul, [facility] [place] [facility] [address] [id number] [address]- 3917 Jul, [facility] [place] [facility] [address] [id number], [place] [address]- 7914 Jul, [facility] [place] [facility] [address] [id number] [place] [address]- 9265 16 Jun, 2014 [facility] [place] [facility] [address] [id number] [place] 6024 16 Jun, 2014 [facility] [place] [facility] [address] [id number] [place] [address]- 1078 15 Jun, 2014 [facility] [place] [facility] [address] [id number] [place] [address]- 0052 15 Sep, 2013 [facility] [place] [facility] [address] [id number] [place] [address]- 5394 09 Sep, 2013 [facility] [place] [facility] [address] [id number] [place] [address]- 3816 09 Jun, 2013 [facility] [place] [facility] [address] [id number] [place] [address]- 0958 04 Sep, 2013 [facility] [place] [facility] [address] [id number] [place] [address]- 7988 04 Sep, 2013 [facility] [place] [facility] [address] [id number] [place] [address]- 0093 02 Jun, 2013 [facility] [place] [facility] [address] [id number] [place] [address]- 0214 Jun, 2013 [facility] [place] [facility] [address] [id number] [place] [address]- 8119 Jun, 2013 [facility] [place] [facility] [address] [id number] [place] [address]- 0432 Jun, 2013 [facility] [place] [facility] [address] [id number] [place] [address]- 1766 Jun, 2013 [facility] [place] [facility] [address] [id number] [place] [address]- 1556 Jun, 2013 [facility] [place] [facility] [address] [id number] [place] [address]- 2542 Jun, 2013 [facility] [place] [facility] [address] [id number] [place] [address]- 8451 Jun, 2013 [facility] [place] [facility] [address] [id number] [place] [address]- 7043 May, [facility] [place] [facility] [address] [id number] [place] [address]- 7257 May, [facility] [place] [facility] [address] [id number] [place] [address]- 4341 Apr, [facility] [place] [facility] [address] [id number] [place] [address]- 2527 Apr, 2013 [facility] [place] [facility] [address] [id number] [place] [address]- 2641 Apr, 2013 [facility] [place] [facility] [address] [id number] [place] [address]- 0595 Apr, 2013 [facility] [place] [facility] [address] [id number] [place] [address]- 6109 Apr, 2013 [facility] [place] [facility] [address] [id number] [place] [address]- 9862 Apr, 2013 [facility] [place] [facility] [address] [id number] [place] [address]- 4834 Apr, 2013 [facility] [place] [facility] [address] [id number] [place] [address]- 9458 Apr, 2013 [facility] [place] [facility] [address] [id number] [place] [address]- 1259 Apr, 2013 [facility] [place] [facility] [address] [id number] [place] [address]- 6216 Apr, 2013 [facility] [place] [facility] [address] [id number] [place] [address]- 8121 Apr, 2013 [facility] [place] [facility] [address] [id number] [place] [address]- 1056 Apr, 2013 [facility] [place] [facility] [address] [id number] [place] [address]- 9875 Apr, 2013 [facility] [place] [facility] [address] [id number] [place] [address]- 8624 Apr, 2013 [facility] [place] [facility] [address] [id number] [place] [address]- 0478 Apr, 2013 [facility] [place] [facility] [address] [id number] [place] [address]- 2118 Apr, 2013 [facility] [place] [facility] [address] [id number] [place] [address]- 0881 Apr, [facility] [place] [facility] [address] [id number] [place] [address]- 7291 Apr, [facility] [place] [facility] [address] [id number] [place] [address]- 7367 Apr, [facility] [place] [facility] [address] [id number] [place] [address]- 0731 Apr, [facility] [place] [facility] [address] [id number] [place] [address]- 2921 Mar, [facility] [place] [facility] [address] [id number] [place] [address]- 2900 Mar, [facility] [place] [facility] [address] [id number] [place] [address]- 5106 February, [facility] [place] [facility] [address] [id number] [place] [address]- 3537 February, [facility] [place] [facility] [address] [id number] [place] [address]- 8726 Jan, [facility] [place] [facility] [address] [id number] [place] [address]- 3383 Jan, [facility] [place] [facility] [address] [id number] [place] [address]- 6167 Jan, [facility] [place] [facility] [address] [id number] [place] [address]- 9232 Jan, [facility] [place] [facility] [address] [id number] [place] [address]- 6062 Dec, [facility] [place] [facility] [address] [id number] [place] [address]- 7832 Dec, [facility] [place] [facility] [address] [id number] [place] [address]- 9636 Oct, [facility] [place] [facility] [address] [id number] [place] [address]- 0972 Oct, [facility] [place] [facility] [address] [id number] [place] [address]- 2164 Oct, [facility] [place] [facility] [address] [id number] [place] [address]- 4041 Oct, [facility] [place] [facility] [address] [id number] [place] [address]- 1286 Aug, [facility] [place] [facility] [address] [id number] [place] [address]- 2836 Aug, [facility] [place] [facility] [address] [id number] [place] [address]- 5861 Aug, [facility] [place] [facility] [address] [id number] [place] [address]- 5000 Aug, [facility] [place] [facility] [address] [id number] [place] [address]- 6434 Jul, [facility] [place] [facility] [address] [id number] [place] [address]- 4323 Jul, [facility] [place] [facility] [address] [id number] [place] [address]- 0496 Jul, [facility] [place] [facility] [address] [id number] [place] [address]- 8756 Jun, [facility] [place] [facility] [address] [id number] [place] [address] May, [facility] [place] [facility] [address] [id number] [place] [address] Apr, [facility] [place] [facility] [address] [id number] [place] [address] Apr, [facility] [place] [facility] [address] [id number] [place] [address] Apr, [facility] [place] [facility] [address] [id number] [place] [address] Apr, [facility] [place] [facility] [address] [id number] [place] [address] Mar, [facility] [address] [id number] [place] [address] Mar, [facility] [place] [facility] [address] [id number] [place] [address] Mar, [facility] [place] [facility] [address] [id number] [place] [address] Mar, [facility] [place] [facility] [address] [id number] [place] [address] February, [facility] [place] [facility] [address] [id number] [place] [address] February, [facility] [place] [facility] [address] [id number] [place] [address] February, [facility] [place] [facility] [address] [id number] [place] [address] February, [facility] [place] [facility] [address] [id number] [place] [address] February, [facility] [place] [facility] [address] [id number] [place] [address] Jan, [facility] [place] [facility] [address] [id number] [place] [address] Dec, [facility] [place] [facility] [address] [id number] [place] [address] Nov, [facility] [place] [facility] [address] [id number] [place] [address] Nov, [facility] [place] [facility] [address] [id number] [place] [address] Nov, [facility] [place] [facility] [address] [id number] [place] [address] Oct, [facility] [place] [facility] [address] [id number] [place] [address] Oct, [facility] [place] [facility] [address] [id number] [place] [address] Oct, [facility] [address] [id number] [place] [address] Oct, [facility] [address] [id number] [place] [address] Oct, [facility] [address] [id number] [place] [address] Oct, [facility] [address] [id number] [place] [address] Sep, [facility] [address] [id number] [place] [address] Sep, [facility] [address] [id number] [place] [address] Sep, [facility] [address] [facility] [id number] [place] [address] Sep, [facility] [address] [id number] [place] [address] Aug, [facility] [address] [id number] [place] [address] Aug, [facility] [address] [facility] [id number] [place] [address] Aug, [facility] [address] [id number] [place] [address] Aug, [facility] [address] [id number] [place] [address] Aug, [facility] [place] [facility] [address] [id number] [place] [address] Aug, [facility] [place] [facility] [address] [facility] [id number] [place] [address] Jul, [facility] [address] [id number] [place] [address] Jul, [facility] [place] [facility] [address] [id number] [place] [address] Jul, [facility] [place] [facility] [address] [id number] [place] [address] Jul, [facility] [place] [facility] [address] [id number] [place] [address] Jul, [facility] [place] [facility] [address] [id number] [place] [address] Jul, [facility] [facility] [address] [id number] [place] [address] Jul, [facility] [place] [facility] [address] [id number] [place] [address] Jul, [facility] [place] [facility] [address] [id number] [place] [address] Jul, [facility] [place] [facility] [address] [id number] [place] [address] Jul, [facility] [place] [facility] [address] [id number] [place] [address] Jun, [facility] [place] [facility] [address] [id number] [place] [address] 14 Jun, 2012 [facility] [place] [facility] [address] [id number] [place] [address] Jun, [facility] [place] [address] [id number], [place] [address] May, [facility] [place] [facility] [address] [id number] [place] [address] May, [facility] [place] [facility] [address] [id number] [place] [address] May, [facility] [place] [facility] [address] [id number] [place] [address] May, [facility] [place] [facility] [address] [id number], [place] [address] 31 Apr, 2012 [facility] [place] [facility] [address] [id number] [place] [address] 30 Apr, 2012 [facility] [place] [address] [id number] [place] [address] 26 Apr, 2012 [facility] [place] [facility] [address] [id number] [place] [address] Apr, [facility] [address] [id number] [place] [address] Mar, [facility] [address] [id number] [place] [address] Mar, [facility] [place] [facility] [address] [id number] [place] [address] Mar, [facility] [place] [facility] [address] [id number] [place] [address] February, [facility] [address] [id number] [place] [address] February, [facility] [address] [id number] [place] [address] Jan, [facility] [facility] [address] [id number] [place] [address] Jan, [facility] [address] [id number] [place] [address] 04 Jan, 2012 [facility] [address] [id number] [place] [address] 29 Dec, 2011 [facility] [facility] [address] [id number] [place] [address] 14 Dec, 2011 [facility] [facility] [address] [id number] [place] [address] 14 Dec, 2011 [facility] [facility] [address] [id number] [place] [address] 08 Dec, 2011 [facility] [address] [id number] [place] [address] 29 Nov, 2011 [facility] [address] [id number] [place] [address] Nov, [facility] [place] [address] [id number] [place] [address] 20 Nov, 2011 [facility] [address] [id number] [place] [address] 16 Nov, 2011 [facility] [address] [id number] [place] [address] 09 Nov, 2011 [facility] [address] [id number] [place] [address] 06 Nov, 2011 [facility] [address] [id number] [place] [address] Nov, [facility] [address] [id number] [place] [address] Oct, [facility] [address] [id number] [place] [address] Oct, [facility] [address] [id number] [place] [address] Oct, [facility] [address] [id number] [place] [address] Oct, [facility] [address] [id number] [place] [address] Oct, [facility] [address] [id number] [place] [address] Oct, [facility] [address] [id number] [place] [address] Oct, [facility] [address] [id number] [place] [address] Oct, [facility] [address] [id number], [place] [address] Sep, [facility] [address] [id number] [place] [address] Sep, [facility] [address] [id number] [place] [address] Sep, [facility] [address] [id number] [place] [address] Sep, [facility] [address] [id number] [place] [address] Aug, [facility] [address] [id number] [place] [address] Aug, [facility] [address] [id number] [place] [address] Aug, [facility] [address] [id number] [place] [address] Jul, [facility] [address] [id number] [place] [address] Jul, [facility] [address] [id number] [place] [address] Jul, [facility] [address] [id number] [place] [address] Oct, [facility] [address] [id number], [place] [address] Aug, [facility] [address] [id number] [place] [address]- [address]698 16 Aug, 2010 [facility] [address] [id number] [place] [address] Sep, [facility] [address] [id number] [place] [address] Sep, [facility] [address] [id number] [place] [address] Sep, [facility] [address] [facility] [id number] [place] [address] 17 Jan, 2009 IMMUNIZATIONS No Known Immunizations SOCIAL HISTORY Never Assessed REASON FOR VISIT Repository Medication PLAN OF CARE VITAL SIGNS MEDICATIONS Medication Instructions Dosage Frequency Start Date End Date Duration Status Nadolol 40 mg Orally Once a day 1 tablet 24h Active RESULTS No Results PROCEDURES No Known [...] liver Medical History Depression Medical History Depression Medical History Female hirsutism Medical History Female hirsutism Surgical History fistula repair Surgical History section 2000, 2004 Surgical History tonsillectomy Hospitalization History surgeries
--- OUTSIDE RECORDS SUMMARY | 2018-08-05 07:49 | XMS REPORT ---
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 Name Role Phone OSVALDO RODRIGUEZ Unavailable PROBLEMS Type Condition ICD9-CM Code POU86-WR Code Onset Dates Condition Status SNOMED Code Problem Rectal bleed K62.5 Active 44856263 Problem Dry eyes H04.123 Active 271196254 Problem Body mass index (BMI) of 40.0-44.9 in adult Z68.41 Active 918701525 Problem Sleep apnea in adult G47.33 Active 55097991 Problem Anal fissure K60.2 Active 76617734 Problem Chronic fatigue R53.82 Active 65143317 Problem Hypertension I10 Active 79469560 ALLERGIES No Information ENCOUNTERS Encounter Location Date Diagnosis [facility] [id number] [place] [address] 94561- 3807 May, Hypertension I10 [facility] [id number] [place] [address] 59679- 0376 May, Generalized anxiety disorder 300.02 [facility] [id number] [place] [address] 11908- 8942 Apr, Sleep apnea in adult G47.33 ; Hypertension I10 and Dry eyes H04.123 [facility] [address], [place] [address] 0784 Apr, [facility] [id number] [place] [address] 69048- 4585 Apr, [facility] [id number] [place] [address] 78636- 7987 Apr, Generalized anxiety disorder 300.02 [facility] [id number] [place] [address] 12536- 8771 Apr, Generalized anxiety disorder F41.1 [facility] [id number] [place] [address] 08012- 4818 Apr, Left breast mass N63.20 [facility] [id number] [place] [address] 96639- 8586 Apr, Generalized anxiety disorder F41.1 [facility] [id number] [place] [address] 98617- 3280 Mar, Generalized anxiety disorder 300.02 [facility] [id number] [place] [address] 22094- 4102 Mar, [facility] [id number] [place] [address] 67995- 2599 Mar, Generalized anxiety disorder 300.02 [facility] [id number] [place] [address] 88308- 2030 Mar, Acute serous otitis media of left ear, recurrence not specified H65.02 ; Dizziness R42 and BMI 40.0-44.9, adult Z68.41 [facility] [id number] [place] [address] 99272- 9971 February, Hypertension I10 [facility] [id number] [place] [address] 49607- 2264 February, Visit for TB skin test Z11.1 ; Encounter for physical examination related to employment Z02.1 ; Hypertension I10 ; Generalized anxiety disorder F41.1 ; BMI 40.0-44.9, adult Z68.41 and Chronic fatigue R53.82 [facility] [id number] [place] [address] 40071- 4597 February, Rectal bleeding K62.5 and BMI 40.0-44.9, adult Z68.41 [facility] [id number] [place] [address] 30612- 5180 Jan, BMI 40.0-44.9, adult Z68.41 and Skin irritation R23.8 [facility] [id number] [place] [address] 97398- 5551 Jan, Generalized anxiety disorder F41.1 [facility] [id number] [place] [address] 94119- 3833 Dec, [facility] [id number] [place] [address] 75277- 4233 Nov, Body mass index (BMI) of 40.0-44.9 in adult Z68.41 ; Hypertension I10 and Seasonal allergic rhinitis, unspecified trigger J30.2 [facility] [id number] [place] [address] 59084- 9164 Nov, Hypertension I10 [facility] [id number] [place] [address] 64085- 2707 Nov, Generalized anxiety disorder 300.02 [facility] [id number] [place] [address] 37855- 1355 Nov, [facility] [id number] [place] [address] 29626- 5065 Oct, [facility] [id number] [place] [address] 64309- 6355 Oct, [facility] [id number] [place] [address] 37510- 1190 Oct, Acute chest wall pain R07.89 [facility] [id number] [place] [address] 91308- 1290 Oct, [facility] [id number] [place] [address] 88742- 8634 Sep, Left breast mass N63.20 [facility] [id number] [place] [address] 32824- 7034 Sep, Left breast mass N63.20 [facility] [id number] [place] [address] 51101- 2178 Aug, Hypertension I10 [facility] [id number] [place] [address] 02968- 6302 Aug, Generalized anxiety disorder 300.02 [facility] [address] 59042- 9738 Jul, Generalized anxiety disorder 300.02 [facility] [id number] [place] [address] 89295- 9406 Jul, Sleep apnea in adult G47.33 [facility] [address] 71847- 3910 Jul, Hypertension I10 ; Sleep apnea in adult G47.33 ; Body mass index (BMI) of 40.0-44.9 in adult Z68.41 ; Morbid (severe) obesity due to excess calories E66.01 and Female hirsutism L68.0 [place] [facility] [id number] [place] [address] 95439- 5961 Jul, Generalized anxiety disorder 300.02 [facility] [address] 23820- 8502 Jul, Generalized anxiety disorder 300.02 [facility] [id number] [place] [address] 58868 -2898 Jun, Chronic fatigue R53.82 [facility] [id number] [place] [address] 76987- 5778 Jun, Generalized anxiety disorder F41.1 [place] [id number] [place] [address] 18644- 1358 May, Generalized anxiety disorder 300.02 [facility] [id number] [place] [address] 26438- 8007 Apr, Generalized anxiety disorder F41.1 ; Hypertension I10 ; Hyperlipidemia E78.5 ; Female hirsutism L68.0 and Sleep apnea in adult G47.33 [facility] [id number] [place] [address] 95151- 4221 Mar, Hypertension I10 and Generalized anxiety disorder F41.1 [facility] [id number] [place] [address] 92008- 6474 Mar, [facility] [address] 86206- 5630 February, Hypertension I10 and Generalized anxiety disorder F41.1 [facility] [id number] [place] [address] 77434- 1849 February, Generalized anxiety disorder 300.02 [facility] [id number] [place] [address] 98883 -9554 February, Pelvic pain R10.2 and Painful bladder spasm R30.1 [facility] [address] 60066- 7096 Jan, Generalized anxiety disorder 300.02 [facility] [address] 70081- 6845 Dec, Obesity, unspecified E66.9 ; Generalized anxiety disorder F41.1 and Hypertension I10 [place] [facility] [id number] [place] [address] 07020- 5110 15 Nov, 2016 Generalized anxiety disorder F41.1 ; Hypertension I10 ; Depression F32.9 and Obesity, unspecified E66.9 [facility] [id number] [place] [address] 83428- 0025 07 Nov, 2016 Generalized anxiety disorder 300.02 [facility] [id number] [place] [address] 40122- 6302 Oct, [facility] [id number] [place] [address] 38735- 2056 Sep, History of pneumonia Z87.01 ; Hypokalemia E87.6 ; Hypertension I10 and Encounter for immunization Z23 [facility] [id number] [place] [address] 79491- 8270 Jul, [place] [address] 79821- 3434 Apr, Hypertension I10 ; Hypercholesteremia E78.0 ; Obesity, unspecified E66.9 ; Anxiety F41.9 and Lumbago M54.5 [facility] [id number] [place] [address] 48179- 1758 Apr, Depression F32.9 [place] [facility] [address] [place] [address] 04530- 7548 Mar, Essential (primary) hypertension I10 [id number] [address] Jan [place] [facility] [id number] [place] [address] 62328- 7103 Dec, [place] [id number] [place] [address] 97971- 1050 Dec, Generalized anxiety disorder F41.1 and Hypertension I10 [place] [id number] [place] [address] 36318- 2619 Dec, [place] [id number] [place] [address] 20355- 2227 Dec, Abdominal pain R10.9 [place] [id number] [place] [address] 92647- 7455 Dec, Left sided abdominal pain of unknown cause R10.30 [place] [id number] [place] [address] 42070- 5818 Nov, Generalized anxiety disorder 300.02 [place] [id number] [place] [address] 48244- 3949 Nov, Female hirsutism L68.0 ; Hypertension I10 ; Hyperlipidemia E78.5 ; Depression F32.9 and Anxiety F41.9 [place] [address] [place] [address] 61124- 0914 Oct, [place] [id number] [place] [address] 34272- 1874 Oct, [place], [place] [address]- 3779 Oct, [place] [id number] [place] [address] 18699- 3505 Oct, [place] [id number] [place] [address] 25997- 7179 Oct, Well woman exam Z01.419 ; Encounter [...] unspecified obesity severity, unspecified obesity type E66.9 [place] [id number] [place] [address] 57132- 5046 Jun, Generalized anxiety disorder 300.02 [place] [id number] [place] [address] 64257- 9819 Jun, Chest pain 786.50 ; Hypertension 401.9 ; Hyperlipemia 272.4 and Obesity 278.00 [address] [address] [place] [address] 46238- 9504 Apr, Generalized anxiety disorder 300.02 [place] [id number] [place] [address] 31455- 0984 Apr, Generalized anxiety disorder 300.02 [place] [address] [place] [address] 60134- 4243 Apr, [place] [id number] [place] [address] 38493- 6249 Apr, [place] [id number] [place] [address] 07087- 4921 Apr, Abdominal pain 789.00 ; Dehydration 276.51 ; Generalized anxiety disorder 300.02 ; Other and unspecified bipolar disorders 296.89 ; Obesity, unspecified 278.00 ; Family history of hypercholesterolemia V18.19 ; Diarrhea 787.91 ; Sleep apnea in adult 327.23 and Essential hypertension 401.9 [facility] [id number] [place] [address] 25301- 9032 Mar, Generalized anxiety disorder 300.02 [facility] [address] 4027 February, [facility] [id number] [place] [address] 82927- 2122 Jan, [facility] [id number] [place] [address] 29217- 3244 Jan, [facility] [id number] [place] [address] 12686- 0698 Oct, [facility] [id number] [place] [address] 71245- 4300 Oct, [facility] [id number] [place] [address] 23280- 2310 Oct, [facility] [address] [place] [address] 25987- 0735 Oct, [facility] [address] [place] [address] 29376- 2458 Sep, [facility] [address] [address]- 0699 Sep, [facility] [id number] [place] [address] 30139- 8631 Sep, [facility] [address], [place] [address]- 5743 Sep, [facility] [id number] [place] [address] 114894- 1697 Sep, [facility] [address], [place] [address]- 2997 Sep, [facility] [id number] [place] [address] 19500- 8957 Sep, [facility] [place] [facility] [address] [id number] [place] [address]- 9415 Aug, [facility] [place] [facility] [address] [id number] [place] [address]- 9959 Aug, [facility] [place] [facility] [address] [id number] [place] [address]- 5900 Aug, [facility] [place] [facility] [address] [id number] [place] [address]- 8171 Aug, [facility] [place] [facility] [address] [id number] [place] [address]- 8504 Jul, [facility] [place] [facility] [address] [id number] [place] [address]- 1271 Jul, [facility] [place] [facility] [address] [id number] [place] [address]- 6453 Jul, [facility] [place] [facility] [address] [id number] [place] [address]- 1436 Jul, [facility] [place] [facility] [address] [facility] [id number] [place] [address]- 6073 Jul, [facility] [place] [facility] [address] [facility] [id number] [place] [address]- 3412 Jul, [facility] [place] [facility] [address] [id number] [place] [address]- 3383 Jul, [facility] [place] [facility] [address] [id number] [place] [address]- 4684 Jul, [facility] [place] [facility] [address] [id number] [place] [address]- 0651 16 Jun, 2014 [facility] [place] [facility] [address] [id number] [place] [address]- 5731 16 Jun, 2014 [facility] [place] [facility] [address] [facility] [id number] [place] [address]- 6290 15 Jun, 2014 [facility] [place] [facility] [address] [id number] [place] [address]- 0121 15 Sep, 2013 [facility] [place] [facility] [address] [id number] [place] [address]- 4029 09 Sep, 2013 [facility] [place] [facility] [address] [id number] [place] [address]- 5066 09 Sep, 2013 [facility] [place] [facility] [address] [id number] [place] [address]- 1611 04 Sep, 2013 [facility] [place] [facility] [address] [id number] [place] [address]- 9331 04 Sep, 2013 [facility] [place] [facility] [address] [id number] [place] [address]- 2802 02 Sep, 2013 [facility] [place] [facility] [address] [id number] [place] [address]- 2572 02 Jun, 2013 [facility] [place] [facility] [address] [id number] [place] [address]- 8374 02 Jun, 2013 [facility] [place] [facility] [address] [id number] [place] [address]- 1768 02 Sep, 2013 [facility] [place] [facility] [address] [id number] [place] [address]- 8918 02 Jun, 2013 [facility] [place] [facility] [address] [id number] [place] [address]- 0638 Jun, 2013 [facility] [place] [facility] [address] [id number] [place] [address]- 6930 Jun, 2013 [facility] [place] [facility] [address] [id number] [place] [address] 2545 Jun, 2013 [facility] [place] [facility] [address] [id number] [place] [address]- 3673 May, [facility] [place] [facility] [address] [id number] [place] [address]- 6087 May, [facility] [place] [facility] [address] [id number] [place] [address]- 2540 Apr, 2013 [facility] [place] [facility] [address] [id number] [place] [address]- 4311 31 Apr, 2013 [facility] [place] [facility] [address] [id number] [place] [address]- 7486 Apr, 2013 [facility] [place] [facility] [address] [id number] [place] [address]- 2817 Apr, 2013 [facility] [place] [facility] [address] [id number] [place] [address]- 8744 Apr, 2013 [facility] [place] [facility] [address] [id number] [place] [address]- 3855 17 Apr, 2013 [facility] [place] [facility] [address] [id number] [place] [address]- 5403 16 Apr, 2013 [facility] [place] [facility] [address] [id number] [place] [address]- 7381 16 Apr, 2013 [facility] [place] [facility] [address] [id number] [place] [address]- 0947 16 Apr, 2013 [facility] [place] [facility] [address] [id number] [place] [address]- 3007 16 Apr, 2013 [facility] [place] [facility] [address] [id number] [place] [address]- 9659 14 Apr, 2013 [facility] [place] [facility] [address] [id number] [place] [address]- 4846 14 Apr, 2013 [facility] [place] [facility] [address] [id number] [place] [address]- 2773 Apr, 2013 [facility] [place] [facility] [address] [id number] [place] [address]- 7271 Apr, 2013 [facility] [place] [facility] [address] [id number] [place] [address]- 9242 Apr, 2013 [facility] [place] [facility] [address] [id number] [place] [address]- 1813 Apr, 2013 [facility] [place] [facility] [address] [id number] [place] [address]- 2000 Apr, [facility] [place] [facility] [address] [id number] [place] [address]- 3384 Apr, [facility] [place] [facility] [address] [id number] [place] [address]- 5841 Apr, [facility] [place] [facility] [address] [id number] [place] [address]- 1341 Apr, [facility] [place] [facility] [address] [id number] [place] [address]- 3326 Mar, [facility] [place] [facility] [address] [id number] [place] [address]- 8238 Mar, [facility] [place] [facility] [address] [id number] [place] [address]- 1683 February, [facility] [place] [facility] [address] [id number] [place] [address]- 4940 February, [facility] [place] [facility] [address] [id number] [place] [address]- 5128 Jan, [facility] [place] [facility] [address] [id number] [place] [address]- 0688 Jan, [facility] [place] [facility] [address] [id number] [place] [address]- 9051 Jan, [facility] [place] [facility] [address] [id number] [place] [address]- 6856 Jan, [facility] [place] [facility] [address] [id number] [place] [address]- 1972 Dec, [facility] [place] [facility] [address] [id number] [place] [address]- 9382 Dec, [facility] [place] [facility] [address] [id number] [place] [address]- 1245 Oct, [facility] [place] [facility] [address] [id number] [place] 2952 Oct, [facility] [place] [facility] [address] [id number] [place] [address]- 8660 Oct, [facility] [place] [facility] [address] [id number] [place] [address]- 7035 Oct, [facility] [place] [facility] [address] [id number] [place] [address]- 1906 Aug, [facility] [place] [facility] [address] [id number] [place] [address]- 5073 Aug, [facility] [place] [facility] [address] [id number] [place] [address]- 5121 Aug, [facility] [place] [facility] [address] [id number] [place] [address]- 1270 Aug, [facility] [place] [facility] [address] [id number] [place] [address]- 7206 Jul, [facility] [place] [facility] [address] [id number] [place] [address]- 4325 Jul, [facility] [place] [facility] [address] [id number] [place] [address]- 4284 Jul, [facility] [place] [facility] [address] [id number] [place] [address]- 3361 Jun, [facility] [place] [facility] [address] [id number] [place] [address]- 7005 May, [facility] [place] [facility] [address] [id number] [place] [address]- 7491 Apr, [facility] [place] [facility] [address] [id number] [place] [address]- 3489 Apr, [facility] [place] [facility] [address] [id number] [place] [address]- 4198 Apr, [facility] [place] [facility] [address] [id number] [place] [address]- 2839 Apr, [facility] [place] [facility] [address] [id number] [place] [address]- 3926 Mar, [facility] [address] [id number] [place] [address] Mar, [facility] [place] [facility] [address] [id number] [place] [address] Mar, [facility] [place] [facility] [address] [id number] [place] [address] Mar, [facility] [place] [facility] [address] [id number] [place] [address] February, [facility] [address] [id number] [place] [address] February, [facility] [place] [facility] [address] [id number] [place] [address] February, [facility] [address] [id number] [place] [address] February, [facility] [place] [facility] [address] [id number] [place] [address] February, [facility] [address] [id number] [place] [address] Jan, [facility] [place] [facility] [address] [id number] [place] [address] Dec, [facility] [place] [facility] [address] [id number] [place] [address] Nov, [facility] [place] [facility] [address] [id number] [place] [address] Nov, [facility] [place] [facility] [address] [id number] [place] [address] Nov, [facility] [place] [facility] [address] [id number] [place] [address] Oct, [facility] [place] [facility] [address] [id number] [place] [address] Oct, [facility] [place] [facility] [address] [id number] [place] [address] Oct, [facility] [address] [id number] [place] [address] Oct, [facility] [place] [facility] [address] [id number] [place] [address] Oct, [facility] [place] [facility] [address] [id number] [place] [address] Oct, [facility] [place] [facility] [address] [id number] [place] [address] Sep, [facility] [place] [facility] [address] [id number] [place] [address] Sep, [facility] [place] [facility] [address] [id number] [place] [address] Sep, [facility] [place] [facility] [address] [id number] [place] [address] Sep, [facility] [place] [facility] [address] [id number] [place] [address] Aug, [facility] [place] [facility] [address] [id number] [place] [address] Aug, [facility] [place] [facility] [address] [facility] [id number] [place] [address] Aug, [facility] [place] [facility] [address] [id number] [place] [address] Aug, [facility] [place] [facility] [address] [id number] [place] [address] Aug, [facility] [place] [facility] [address] [id number] [place] [address] Aug, [facility] [place] [facility] [address] [id number] [place] [address] Jul, [facility] [place] [facility] [address] [id number] [place] [address] Jul, [facility] [place] [facility] [address] [id number] [place] [address] Jul, [facility] [place] [facility] [address] [id number] [place] [address]99 Jul, [facility] [place] [facility] [address] [id number] [place] [address] Jul, [facility] [place] [facility] [address] [id number] [place] [address] Jul, [facility] [place] [facility] [address] [id number] [place] [address] Jul, [facility] [place] [facility] [address] [id number] [place] [address] Jul, [facility] [place] [facility] [address] [id number] [place] [address] Jul, [facility] [place] [facility] [address] [id number] [place] [address] Jul, [facility] [place] [facility] [address] [id number] [place] [address] Jun, [facility] [place] [facility] [address] [id number] [place] [address] 14 Jun, 2012 [facility] [facility] [address] [id number] [place] [address] Jun, [facility] [place] [facility] [address] [id number] [address] May, [facility] [place] [facility] [address] [id number] [place] [address] May, [facility] [place] [facility] [address] [id number], [place] [address] May, [facility] [place] [facility] [address] [id number] [place] [address] May, [facility] [place] [facility] [address] [id number] [place] [address] 31 Apr, 2012 [facility] [place] [facility] [address] [id number] [place] [address] 30 Apr, 2012 [facility] [place] [facility] [address] [id number] [place] [address] 26 Apr, 2012 [facility] [place] [facility] [address] [id number] [place] [address] Apr, [facility] [place] [facility] [address] [id number] [place] [address] Mar, [facility] [place] [facility] [address] [id number] [place] [address] Mar, [facility] [place] [facility] [address] [id number] [place] [address] Mar, [facility] [place] [facility] [address] [id number] [place] [address] February, [facility] [place] [facility] [address] [id number] [place] [address] February, [facility] [place] [facility] [address] [id number] [place] [address] 23 Jan, 2012 [facility] [place] [facility] [address] [id number] [place] [address] 18 Jan, 2012 [facility] [facility] [address] [id number] [place] [address] 04 Jan, 2012 [facility] [place] [facility] [address] [id number] [place] [address] 29 Dec, 2011 [facility] [place] [facility] [address] [id number] [place] [address] 14 Dec, 2011 [facility] [place] [facility] [address] [id number] [place] [address] 14 Dec, 2011 [facility] [place] [address] [id number] [place] [address] 08 Dec, 2011 [facility] [place] [facility] [address] [id number] [place] [address] 29 Nov, 2011 [facility] [place] [facility] [address] [id number] [place] [address] Nov, [facility] [facility] [address] [id number] [place] [address] Nov, [facility] [address] [id number] [place] [address] 16 Nov, 2011 [facility] [facility] [address] [id number] [place] [address] Nov, [facility] [address] [id number] [place] [address] Nov, [facility] [place] [address] [id number] [place] [address]- [address] Nov, [facility] [place] [facility] [address] [id number] [place] [address] Oct, [facility] [address] [id number] [place] [address] Oct, [facility] [address] [id number] [place] [address] Oct, [facility] [address] [id number] [place] [address] Oct, [facility] [place] [address] [id number] [place] [address] Oct, [facility] [address] [id number] [place] [address] Oct, [facility] [place] [address] [id number] [place] [address] Oct, [facility] [address] [id number] [place] [address] Oct, [facility] [address] [id number] [place] [address] Sep, [facility] [place] [facility] [address] [id number] [place] [address] Sep, [facility] [place] [address] [id number] [place] [address] Sep, [facility] [place] [facility] [address] [id number] [place] [address] Sep, [facility] [place] [facility] [address] [id number] [place] [address] Aug, [facility] [facility] [address] [id number] [place] [address] Aug, [facility] [address] [id number] [place] [address] Aug, [facility] [address] [id number] [place] [address] Jul, [facility] [address] [id number] [place] [address] Jul, [facility] [address] [id number] [place] [address] Jul, [facility] [address] [facility] [id number] [place] [address] Oct, [facility] [address] [id number] [place] [address] 17 Aug, 2010 [facility] [address] [id number][place] [address] 16 Aug, 2010 [facility] [address] [id number] [place] [address]- [address] 30 Sep, 2009 [facility] [address] [id number] [place] [address] Sep, [facility] [address] [facility] [id number] [place] [address] Sep, [facility] [address] [facility] [id number] [place] [id number] Jan, IMMUNIZATIONS No Known Immunizations SOCIAL HISTORY Never Assessed REASON FOR VISIT f/u PLAN OF CARE Activity Details Follow Up 2 Weeks Reason: VITAL SIGNS MEDICATIONS Unknown Medications RESULTS No Results PROCEDURES Procedure Date Ordered Result Body Site Psychotherapy, patient &/family, 45 minutes, established patient May 21, 2018 INSTRUCTIONS MEDICATIONS ADMINISTERED No Known Medications MEDICAL [...]
[2018-08-05] MEDS ORDERED: LACTATED RINGERS 1,000 ML IV ONE (07:50)
--- OUTSIDE RECORDS SUMMARY | 2018-08-05 07:50 | XMS REPORT ---
Author Author GAMAL CLARK [facility] Address [address] [place] [address] Care Team Providers [facility] Name Role Phone GAMAL CLARK Unavailable PROBLEMS Type Condition ICD9-CM Code HVG69-NE Code Onset Dates Condition Status SNOMED Code Problem Rectal bleed K62.5 Active 90586979 Problem Dry eyes H04.123 Active 103417171 Problem Body mass index (BMI) of 40.0-44.9 in adult Z68.41 Active 740960806 Problem Sleep apnea in adult G47.33 Active 21654951 Problem Anal fissure K60.2 Active 92139437 Problem Chronic fatigue R53.82 Active 37533519 Problem Hypertension I10 Active 36501092 ALLERGIES Substance Reaction Event Type Date Status Amoxicillin Unknown Drug Allergy Mar, Active ENCOUNTERS Encounter Location Date Diagnosis [place] [id number] [address] Jun, [place] [address] [address]- [address] May, Hypertension I10 [facility] [address] [address]- [address] May, Generalized anxiety disorder 300.02 [facility] [address] [address]- 3565 Apr, Sleep apnea in adult G47.33 ; Hypertension I10 and Dry eyes H04.123 [facility] [address] [address]- 28[address] Apr, [facility] [address] 14945- 0853 Apr, [facility] [address] [address]41- 500[address] Apr, Generalized anxiety disorder 300.02 [place] [address] [place] [id number] [place] [address] 56650- 9611 Apr, Generalized anxiety disorder F41.1 [place] [address] [place] [id number] [place] [address] 79429- 4436 Apr, Left breast mass N63.20 [place] [address] [address]- 7870 Apr, Generalized anxiety disorder F41.1 [place] [address] 03303- 1718 Mar, Generalized anxiety disorder 300.02 [place] [address] 12650- 3887 Mar, [place] [address] [place] [id number] [place] [address] 38396- 0979 Mar, Generalized anxiety disorder 300.02 [place] [address] [place] [id number] [place] [address] 79663- 6438 Mar, Acute serous otitis media of left ear, recurrence not specified H65.02 ; Dizziness R42 and BMI 40.0-44.9, adult Z68.41 [place] [address] [place] [id number] [place] [address] 60805- 5821 February, Hypertension I10 [place] [address] [place] [id number] [place] [address] 85540- 3645 February, Visit for TB skin test Z11.1 ; Encounter for physical examination related to employment Z02.1 ; Hypertension I10 ; Generalized anxiety disorder F41.1 ; BMI 40.0-44.9, adult Z68.41 and Chronic fatigue R53.82 [place] [address] [place] [id number] [place] [address] 30930- 5631 February, Rectal bleeding K62.5 and BMI 40.0-44.9, adult Z68.41 [place] [address] [place] [id number] [place] [address] 59750- 1900 Jan, BMI 40.0-44.9, adult Z68.41 and Skin irritation R23.8 [facility] [address] [place] [id number] [place] [address] 66134- 4385 Jan, Generalized anxiety disorder F41.1 [facility] [address] [place] [id number] [place] [address] 37452- 1231 Dec, [facility] [address] 35299- 3146 Nov, Body mass index (BMI) of 40.0-44.9 in adult Z68.41 ; Hypertension I10 and Seasonal allergic rhinitis, unspecified trigger J30.2 [facility] [address] [place] [id number] [place] [address] 92797- 8499 Nov, Hypertension I10 [facility] [address] 03342- 8773 Nov, Generalized anxiety disorder 300.02 [facility] [address] [place] [id number] [place] [address] 60952- 1494 Nov, [facility] [address] [place] [id number] [place] [address] 03942- 1008 Oct, [facility] [address] [place] [id number] [place] [address] 40758- 8559 Oct, [facility] [address] [place] [id number] [place] [address] 73520- 5836 Oct, Acute chest wall pain R07.89 [facility] [address] [place] [id number] [place] [address] 21099- 9722 Oct, [facility] [address] [place] [id number] [place] [address] 11015- 8940 Sep, Left breast mass N63.20 [facility] [address] [place] [id number] [place] [address] 84393- 5871 Sep, Left breast mass N63.20 [place] [address] [place] [id number] [place] [address] 05672- 4065 Aug, Hypertension I10 [facility] [address] 95581- 5404 Aug, Generalized anxiety disorder 300.02 [place] [address] 76956- 5168 Jul, Generalized anxiety disorder 300.02 [facility] [address] 49337- 1050 Jul, Sleep apnea in adult G47.33 [place] [address] 97963- 3094 Jul, Hypertension I10 ; Sleep apnea in adult G47.33 ; Body mass index (BMI) of 40.0-44.9 in adult Z68.41 ; Morbid (severe) obesity due to excess calories E66.01 and Female hirsutism L68.0 [place] [address] [place] [id number] [place] [address] 95968- 5562 Jul, Generalized anxiety disorder 300.02 [place] [address] [place] [id number] [place] [address] 44640- 5426 Jul, Generalized anxiety disorder 300.02 [facility] [address] [place] [id number] [place] [address] 93682 -8583 Jun, Chronic fatigue R53.82 [facility] [address] [place] [id number] [place] [address] 91252- 6593 Jun, Generalized anxiety disorder F41.1 [facility] [address] [place] [id number] [place] [address] 50268- 3441 May, Generalized anxiety disorder 300.02 [facility] [address] [place] [id number] [place] [address] 47073- 1052 Apr, Generalized anxiety disorder F41.1 ; Hypertension I10 ; Hyperlipidemia E78.5 ; Female hirsutism L68.0 and Sleep apnea in adult G47.33 [place] [address] [place] [id number] [place] [address] 98718- 1396 Mar, Hypertension I10 and Generalized anxiety disorder F41.1 [facility] [address] [place] [id number] [place] [address] 84906- 0334 Mar, [facility] [address] [place] [id number] [place] [address] 28849- 5848 February, Hypertension I10 and Generalized anxiety disorder F41.1 [facility] [address] [place] [id number] [place] [address] 47669- 6677 February, Generalized anxiety disorder 300.02 [facility] [address] 87989 -1738 February, Pelvic pain R10.2 and Painful bladder spasm R30.1 [place] [address] [place] [id number] [place] [address] 68212- 5282 Jan, Generalized anxiety disorder 300.02 [place] [address] [place] [id number] [place] [address] 23171- 8953 Dec, Obesity, unspecified E66.9 ; Generalized anxiety disorder F41.1 and Hypertension I10 [place] [address] [place] [id number] [place] [address] 96885- 9257 15 Nov, 2016 Generalized anxiety disorder F41.1 ; Hypertension I10 ; Depression F32.9 and Obesity, unspecified E66.9 [place] [address] [place] [id number] [place] [address] 32142- 8915 Nov, Generalized anxiety disorder 300.02 [place] [address] [place] [id number] [place] [address] 20536- 0663 Oct, [place] [address] [place] [id number] [place] [address] 19453- 6457 Sep, History of pneumonia Z87.01 ; Hypokalemia E87.6 ; Hypertension I10 and Encounter for immunization Z23 [place] [address] 91147- 2264 Jul, [facility] [address] [place] [id number] [place] [address] 41680- 8062 Apr, Hypertension I10 ; Hypercholesteremia E78.0 ; Obesity, unspecified E66.9 ; Anxiety F41.9 and Lumbago M54.5 [facility] [address] [place] [id number] [place] [address] 72793- 6280 Apr, Depression F32.9 [facility] [address] [place] [id number] [place] [address] 04484- 8723 Mar, Essential (primary) hypertension I10 [address] [address] Jan [facility] [address] [place] [id number] [place] [address] 34000- 0632 Dec, [facility] [address] [place] [id number] [place] [address] 78925- 4554 Dec, Generalized anxiety disorder F41.1 and Hypertension I10 [facility] [address] [place] [id number] [place] [address] 21516- 6467 Dec, [facility] [address] [place] [id number] [place] [address] 13619- 3824 Dec, Abdominal pain R10.9 [facility] [address] [place] [id number] [place] [address] 87481- 2685 Dec, Left sided abdominal pain of unknown cause R10.30 [facility] [address] [place] [id number] [place] [address] 37579- 2161 Nov, Generalized anxiety disorder 300.02 [facility] [address] [place] [id number] [place] [address] 22330- 9336 Nov, Female hirsutism L68.0 ; Hypertension I10 ; Hyperlipidemia E78.5 ; Depression F32.9 and Anxiety F41.9 [facility] [address] [place] [id number] [place] [address] 45588- 0089 Oct, [facility] [address] [place] [address] 19633- 3776 Oct, [facility] [address] [place] [id number] [place] [address] 87572- 4757 Oct, [facility] [address] [place] [id number] [place] [address] 96057- 6523 Oct, [facility] [address] [place] [id number] [place] [address] 84426- 0916 Oct, Well woman exam Z01.419 ; Encounter [...] unspecified obesity severity, unspecified obesity type E66.9 [facility] [address] [place] [address] 19828- 6749 Jun, Generalized anxiety disorder 300.02 [place] [address] [place] [id number] [place] [address] 04861- 2203 Jun, Chest pain 786.50 ; Hypertension 401.9 ; Hyperlipemia 272.4 and Obesity 278.00 [place] [address] [place] [id number] [place] [address] 83398- 6417 Apr, Generalized anxiety disorder 300.02 [facility] [address] [place] [id number] [place] [address] 98572- 5886 Apr, Generalized anxiety disorder 300.02 [facility] [address] [place] [id number] [place] [address] 24572- 3333 Apr, [facility] [address] [place] [id number] [place] [address] 56044- 4212 Apr, [facility] [address] [place] [id number] [place] [address] 94069- 5342 Apr, Abdominal pain 789.00 ; Dehydration 276.51 ; Generalized anxiety disorder 300.02 ; Other and unspecified bipolar disorders 296.89 ; Obesity, unspecified 278.00 ; Family history of hypercholesterolemia V18.19 ; Diarrhea 787.91 ; Sleep apnea in adult 327.23 and Essential hypertension 401.9 [facility] [address] 7170 Mar, Generalized anxiety disorder 300.02 [facility] [address] [place] [id number] [place] [address] 58303- 0844 February, [facility] [address] [place] [id number] [place] [address] 60807- 2298 Jan, [facility] [address] [place] [id number] [place] [address] 47917- 1747 Jan, [facility] [address] [place] [id number] [place] [address] 26830- 5557 Oct, [facility] [address] [place] [id number] [place] [address] 57106- 1983 Oct, [facility] [address] [place] [id number] [place] [address] 04347- 2096 Oct, [facility] [address] [place] [id number] [address]- 2698 Oct, [facility] [address], [place] [address]- 7403 Sep, [facility] [address] [place] [id number] [address]- 5743 Sep, [facility] [address], [place] [address]- 8804 Sep, [facility] [address] [place] [id number] 7858 Sep, [facility] [address] 4606 Sep, [facility] [address] [place] [address]- 2547 Sep, [facility] [place] [facility] [address] [id number] [place] [address]- 3882 Sep, [facility] [place] [facility] [address] [id number] [place] [address]- 8118 Aug, [facility] [place] [facility] [address] [id number] [place] [address]- 9220 Aug, [facility] [place] [facility] [address] [id number] [place] [address]- 4794 Aug, [facility] [place] [facility] [address] [id number] [place] [address]- 2691 Aug, [facility] [place] [facility] [address] [id number] [place] [address]- 8663 Jul, [facility] [place] [facility] [address] [id number] [place] [address]- 3638 Jul, [facility] [place] [facility] [address] [id number] [place] [address]- 8283 Jul, [facility] [place] [facility] [address] [id number] [place] [address]- 7318 Jul, [facility] [place] [facility] [address] [id number] [place] [address]- 2276 Jul, [facility] [place] [facility] [address] [id number] [place] [address]- 2352 Jul, [facility] [place] [facility] [address] [id number] [place] [address]- 0048 Jul, [facility] [place] [facility] [address] [id number] [place] [address]- 8909 Jul, [facility] [place] [facility] [address] [id number] [place] [address]- 8756 16 Jun, 2014 [facility] [place] [facility] [address] [id number] [place] 8062 16 Jun, 2014 [facility] [place] [facility] [address] [id number] [place] [address]- 4783 15 Sep, 2013 [facility] [place] [facility] [address] [id number] [place] [address]- 9766 15 Sep, 2013 [facility] [place] [facility] [address] [id number] [place] [address]- 7315 09 Sep, 2013 [facility] [place] [facility] [address] [id number] [place] [address]- 2459 09 Sep, 2013 [facility] [place] [facility] [address] [id number] [place] [address]- 8986 04 Sep, 2013 [facility] [place] [facility] [address] [id number] [place] [address]- 3122 04 Sep, 2013 [facility] [place] [facility] [address] [id number] [place] [address]- 7996 02 Sep, 2013 [facility] [place] [facility] [address] [id number] [place] [address]- 7662 02 Sep, 2013 [facility] [place] [facility] [address] [id number] [place] [address]- 9343 02 Sep, 2013 [facility] [place] [facility] [address] [id number] [place] [address]- 6651 02 Sep, 2013 [facility] [place] [facility] [address] [id number], [place] [address]- 7459 02 Sep, 2013 [facility] [place] [facility] [address] [id number], [place] [address]- 4987 02 Sep, 2013 [facility] [place] [facility] [address] [id number] [place] [address]- 254 02 Sep, 2013 [facility] [place] [facility] [address] [id number] [place] [address]- 6948 02 Sep, 2013 [facility] [place] [facility] [address] [id number], [place] [address]- 7321 18 May, 2013 [facility] [place] [facility] [address] [id number], [place] [address]- 4470 May, [facility] [place] [facility] [address] [id number] [place] [address]- 4369 Apr, 2013 [facility] [place] [facility] [address] [id number] [place] [address]- 3018 Apr, [facility] [place] [facility] [address] [id number] [place] [address]- 7616 Apr, 2013 [facility] [place] [facility] [address] [id number] [place] [address]- 1152 Apr, 2013 [facility] [place] [facility] [address] [id number] [place] [address]- 7372 Apr, [facility] [place] [facility] [address] [id number] [place] [address]- 8402 Apr, 2013 [facility] [place] [facility] [address] [id number] [place] [address]- 5652 Apr, 2013 [facility] [place] [facility] [address] [id number] [place] [address]- 9338 Apr, 2013 [facility] [place] [facility] [address] [id number] [place] [address]- 0480 Apr, 2013 [facility] [place] [facility] [address] [id number] [place] [address]- 8845 Apr, [facility] [place] [facility] [address] [id number] [place] [address]- 7766 Apr, 2013 [facility] [place] [facility] [address] [id number] [place] [address]- 4869 Apr, 2013 [facility] [place] [facility] [address] [id number] [place] [address]- 7537 Apr, [facility] [place] [facility] [address] [id number] [place] [address]- 9747 Apr, 2013 [facility] [place] [facility] [address] [id number] [place] [address]- 9155 Apr, 2013 [facility] [place] [facility] [address] [id number] [place] [address]- 2335 Apr, [facility] [place] [facility] [address] [id number] [place] [address]- 8138 Apr, [facility] [place] [facility] [address] [id number] [place] [address]- 5998 Apr, [facility] [place] [facility] [address] [id number] [place] [address]- 9824 Apr, [facility] [place] [facility] [address] [id number] [place] [address]- 9289 Apr, [facility] [place] [facility] [address] [id number] [place] [address]- 1833 Mar, [facility] [place] [facility] [address] [id number] [place] [address]- 1502 Mar, [facility] [place] [facility] [address] [id number] [place] [address]- 2801 February, [facility] [place] [facility] [address] [id number] [place] [address]- 5893 February, [facility] [place] [facility] [address] [id number] [place] [address]- 1028 Jan, [facility] [place] [facility] [address] [id number] [place] [address]- 6152 Jan, [facility] [place] [facility] [address] [id number] [place] [address]- 1816 Jan, [facility] [place] [facility] [address] [id number] [place] [address]- 2368 Jan, [facility] [place] [facility] [address] [id number] [place] [address]- 3273 Dec, [facility] [place] [facility] [address] [id number] [place] [address]- 9946 Dec, [facility] [place] [facility] [address] [id number] [place] [address]- 9167 Oct, [facility] [place] [facility] [address] [id number] [place] [address]- 3911 Oct, [facility] [place] [facility] [address] [id number] [place] [address]- 2994 Oct, [facility] [place] [facility] [address] [id number] [place] 4843 Oct, [facility] [place] [facility] [address] [id number] [place] [address]- 0744 Aug, [facility] [place] [facility] [address] [id number] [place] [address]- 4686 Aug, [facility] [place] [facility] [address] [id number] [place] [address]- 8427 Aug, [facility] [place] [facility] [address] [id number] [place] [address]- 7565 Aug, [facility] [place] [facility] [address] [id number] [place] [address]- 7680 Jul, [facility] [place] [facility] [address] [id number] [place] [address]- 3697 Jul, [facility] [place] [facility] [address] [id number] [place] [address]- 1223 Jul, [facility] [place] [facility] [address] [id number], [place] [address]- 6634 Jun, [facility] [place] [facility] [address] [id number], [place] [address]- 3178 May, [facility] [place] [facility] [address] [id number] [place] [address]- 6262 Apr, [facility] [place] [facility] [address] [id number], [place] [address]- 7655 Apr, [facility] [place] [facility] [address] [id number] [place] [address]- 7622 Apr, [facility] [place] [facility] [address] [id number] [place] [address]- 0499 Apr, [facility] [address] [id number] [place] [address]- 5128 Mar, [facility] [address] [id number] [place] [address] Mar, [facility] [address] [id number] [place] [address] Mar, [facility] [address] [id number] [place] [address] Mar, [facility] [address] [id number] [place] [address] February, [facility] [address] [id number] [place] [address] February, [facility] [address] [id number] [place] [address] February, [facility] [address] [id number] [place] [address] February, [facility] [address] [id number] [place] [address] February, [facility] [address] [facility] [id number] [place] [address] Jan, [facility] [address] [id number] [place] [address] Dec, [facility] [address] [id number] [place] [address] Nov, [facility] [place] [facility] [address] [id number] [place] [address] Nov, [facility] [place] [facility] [address] [id number] [place] [address] Nov, [facility] [place] [facility] [address] [id number] [place] [address] Oct, [facility] [address] [id number] [place] [address] Oct, [facility] [place] [facility] [address] [id number] [place] [address] Oct, [facility] [place] [facility] [address] [id number] [place] [address] Oct, [facility] [place] [facility] [address] [id number] [place] [address] Oct, [facility] [place] [facility] [address] [id number] [place] [address] Oct, [facility] [place] [facility] [address] [id number] [place] [address] Sep, [facility] [place] [facility] [address] [id number] [place] [address] Sep, [facility] [place] [facility] [address] [id number] [place] [address] Sep, [facility] [place] [facility] [address] [id number] [place] [address] Sep, [facility] [place] [facility] [address] [facility] [id number], [place] [address] Aug, [facility] [place] [facility] [address] [id number], [place] [address] Aug, [facility] [place] [facility] [address] [id number], [place] [address] Aug, [facility] [place] [facility] [address] [id number] [place] [address] Aug, [facility] [place] [facility] [address] [id number] [place] [address] Aug, [facility] [place] [facility] [address] [facility] [id number], [place] [address] Aug, [facility] [place] [facility] [address] [id number], [place] [address] Jul, [facility] [place] [facility] [address] [id number] [place] [address] Jul, [facility] [place] [facility] [address] [id number] [place] [address] Jul, [facility] [place] [facility] [address] [id number] [place] [address] Jul, [facility] [place] [facility] [address] [id number] [place] [address] Jul, [facility] [place] [facility] [address] [id number] [place] [address] Jul, [facility] [place] [facility] [address] [id number] [place] [address] Jul, [facility] [place] [facility] [address] [facility] [id number] [place] [address] Jul, [facility] [place] [facility] [address] [id number] [place] [address] Jul, [facility] [place] [facility] [address] [facility] [id number] [place] [address] Jul, [facility] [place] [facility] [address] [facility] [id number] [place] [address] 26 Jun, 2012 [facility] [place] [facility] [address] [id number] [place] [address] 14 Jun, 2012 [facility] [place] [facility] [address] [id number] [place] [address] 12 Jun, 2012 [facility] [place] [facility] [address] [id number] [place] [address] May, [facility] [place] [facility] [address] [facility] [id number] [place] [address] 16 May, 2012 [facility] [place] [facility] [address] [facility] [id number] [place] [address] May, [facility] [place] [facility] [address] [id number] [place] [address] May, [facility] [place] [facility] [address] [id number] [place] [address] Apr, [facility] [place] [facility] [address] [id number] [place] [address] Apr, [facility] [place] [facility] [address] [id number] [place] [address] Apr, [facility] [place] [facility] [address] [id number] [place] [address] Apr, [facility] [place] [facility] [address] [id number] [place] [address] Mar, [facility] [place] [facility] [address] [id number] [place] [address] Mar, [facility] [place] [facility] [address] [id number] [place] [address] Mar, [facility] [place] [facility] [address] [id number] [place] [address] February, [facility] [place] [facility] [address] [id number] [place] [address] February, [facility] [place] [facility] [address] [id number] [place] [address] Jan, [facility] [place] [facility] [address] [id number] [place] [address] 18 Jan, 2012 [facility] [place] [facility] [address] [id number] [place] [address] Jan, [facility] [place] [facility] [address] [id number] [place] [address] 29 Dec, 2011 [facility] [place] [facility] [address] [id number] [place] [address] 14 Dec, 2011 [facility] [place] [facility] [address] [id number] [place] [address] 14 Dec, 2011 [facility] [address] [id number] [place] [address] 08 Dec, 2011 [facility] [place] [facility] [address] [id number] [place] [address] 29 Nov, 2011 [facility] [place] [facility] [address] [id number] [place] [address] Nov, [facility] [place] [facility] [address] [id number] [place] [address] Nov, [facility] [place] [facility] [address] [id number] [place] [address] 16 Nov, 2011 [facility] [place] [facility] [address] [id number] [place] [address] Nov, [facility] [place] [facility] [address] [id number] [place] [address] Nov, [facility] [place] [facility] [address] [id number] [place] [address] Nov, [facility] [place] [facility] [address] [id number] [place] [address] Oct, [facility] [place] [facility] [address] [id number] [place] [address] Oct, [facility] [place] [facility] [address] [id number] [place] [address] Oct, [facility] [place] [facility] [address] [id number] [place] [address] Oct, [facility] [place] [facility] [address] [id number] [place] [address]- [address] Oct, [facility] [place] [facility] [address] [id number] [place] [address]- [address] Oct, [facility] [place] [facility] [address] [id number] [place] [address] 05 Oct, 2011 [facility] [place] [facility] [address] [id number] [place] [address]- [address] 05 Oct, 2011 [facility] [address] [id number] [place] [address] Sep, [facility] [place] [facility] [address] [id number] [place] [address] Sep, [facility] [place] [facility] [address] [id number] [place] [address] Sep, [facility] [place] [facility] [address] [id number] [place] [address] Sep, [facility] [place] [facility] [address] [id number] [place] [address] Aug, [facility] [place] [facility] [address] [id number] [place] [address] Aug, [facility] [place] [facility] [address] [id number] [place] [address] Aug, [facility] [place] [facility] [address] [id number] [place] [address] Jul, [facility] [place] [facility] [address] [id number] [place] [address] Jul, [facility] [place] [facility] [address] [id number] [place] [address] Jul, [facility] [place] [facility] [address] [id number] [place] [address] Oct, [facility] [place] [facility] [address] [id number] [place] [address] Aug, [facility] [place] [facility] [address] [id number] [place] [address] Aug, [facility] [place] [facility] [address] [id number] [place] [address] Sep, [facility] [place] [facility] [address] [id number] [place] [address] Sep, [facility] [address] [facility] [id number] [place] [address] Sep, [facility] [address] [facility] [id number], [place] [address] Jan, IMMUNIZATIONS No Known Immunizations SOCIAL HISTORY Never Assessed REASON FOR VISIT Dizziness- began yesterday morning, hadnt been feeling well, extreme vertigo when going to stand, occured again while just sitting, nausea due to spinning- AHarrymanRN, Went to ED yesterday for the above, only have the cbc record from visit PLAN OF CARE Activity Details Follow Up prn Reason: VITAL SIGNS Height 64 in 2018-04-02 Weight 238.4 lbs 2018-04-02 Temperature 97.0 degrees Fahrenheit 2018-04-02 Heart Rate 70 bpm 2018-04-02 Respiratory Rate 20 2018-04-02 BMI 40.92 kg/m2 2018-04-02 Blood pressure systolic 124 mmHg 2018-04-02 Blood pressure diastolic 76 mmHg 2018-04-02 MEDICATIONS Medication Instructions Dosage Frequency Start Date End Date Duration Status BusPIRone HCl 15 mg Orally Once a day TAKE ONE-HALF TABLET BY MOUTH TWICE DAILY 24h Active Triamterene-HCTZ 75-50 MG Orally Once a day 1 capsule 24h Active Lorazepam 0.5 MG Orally 2 times a day 1 tablet as needed 12h 15 Dec, 2016 Active Cetirizine HCl 10 MG Orally Once a day 1 tablet 24h 13 Mar, 2018 Apr, 30 day(s) Active Cymbalta 60 MG TAKE ONE CAPSULE BY MOUTH ONCE DAILY ALONG WITH CYMBALTA 30 MG Active Nadolol 40 mg Orally Once a day 1 tablet 24h Active Cephalexin 500 MG Orally every 12 hrs 1 capsule 12h Mar, Mar, 10 day(s) Active RESULTS No Results PROCEDURES No [...]
--- OUTSIDE RECORDS SUMMARY | 2018-08-05 07:50 | XMS REPORT ---
Author Author GAMAL CLARK Organization [facility] Address [address] [place] [address] Care Team Providers Care Center Sales And Service Associate Name Role Phone GAMAL CLARK Unavailable PROBLEMS Type Condition ICD9-CM Code LTZ85-AG Code Onset Dates Condition Status SNOMED Code Problem Rectal bleed K62.5 Active 99934628 Problem Dry eyes H04.123 Active 276391556 Problem Body mass index (BMI) of 40.0-44.9 in adult Z68.41 Active 001803791 Problem Sleep apnea in adult G47.33 Active 23476086 Problem Anal fissure K60.2 Active 52720099 Problem Chronic fatigue R53.82 Active 74083545 Problem Hypertension I10 Active 43941514 ALLERGIES No Information ENCOUNTERS Encounter Location Date Diagnosis [place] [id number] [place] [address] 00720- 7515 Jun, [place] [address] 79404- 8512 May, Hypertension I10 [place] [id number] [place] [address] 45320- 7425 May, Generalized anxiety disorder 300.02 [facility] [id number] [place] [address] 95119- 4301 Apr, Sleep apnea in adult G47.33 ; Hypertension I10 and Dry eyes H04.123 [facility] [id number] [place] [address] 71144- 1358 Apr, [facility] [id number] [place] [address] 87396- 0116 Apr, [facility] [id number] [place] [address] 60216- 5401 Apr, Generalized anxiety disorder 300.02 [facility] [id number] [place] [address] 41453- 1547 Apr, Generalized anxiety disorder F41.1 [facility] [id number] [place] [address] 63204- 8490 Apr, Left breast mass N63.20 [facility] [id number] [place] [address] 92735- 4676 Apr, Generalized anxiety disorder F41.1 [facility] [id number] [place] [address] 45794- 5884 Mar, Generalized anxiety disorder 300.02 [facility] [address] 05782- 9285 Mar, [facility] [id number] [place] [address] 80672- 8213 Mar, Generalized anxiety disorder 300.02 [facility] [address] 70042- 7584 Mar, Acute serous otitis media of left ear, recurrence not specified H65.02 ; Dizziness R42 and BMI 40.0-44.9, adult Z68.41 [place] [id number] [place] [address] 48905- 8676 February, Hypertension I10 [place] [id number] [place] [address] 61014- 4530 February, Visit for TB skin test Z11.1 ; Encounter for physical examination related to employment Z02.1 ; Hypertension I10 ; Generalized anxiety disorder F41.1 ; BMI 40.0-44.9, adult Z68.41 and Chronic fatigue R53.82 [place] [id number] [place] [address] 79670- 8630 February, Rectal bleeding K62.5 and BMI 40.0-44.9, adult Z68.41 [place] [id number] [place] [address] 92838- 1059 Jan, BMI 40.0-44.9, adult Z68.41 and Skin irritation R23.8 [facility] [address] 39667- 6437 Jan, Generalized anxiety disorder F41.1 [facility] [address] 78673- 1645 Dec, [facility] [address] 15687- 6116 Nov, Body mass index (BMI) of 40.0-44.9 in adult Z68.41 ; Hypertension I10 and Seasonal allergic rhinitis, unspecified trigger J30.2 [facility] [address] 54279- 5084 Nov, Hypertension I10 [place] [address] 92936- 0703 Nov, Generalized anxiety disorder 300.02 [facility] [address] 79760- 7573 Nov, [facility] [address] 47525- 3427 Oct, [facility] [address] 05787- 7364 Oct, [facility] [address] 17837- 4214 Oct, Acute chest wall pain R07.89 [facility] [id number] [place] [address] 99831- 2897 Oct, [facility] [address] 32363- 5489 Sep, Left breast mass N63.20 [facility] [address] 96573- 5072 Sep, Left breast mass N63.20 [facility] [address] [place] [address]- 2472 Aug, Hypertension I10 [facility] [id number] [place] [address] 61355- 7747 Aug, Generalized anxiety disorder 300.02 [facility] [id number] [place] [address] 10053- 1987 Jul, Generalized anxiety disorder 300.02 [facility] [address] 75147- 3569 Jul, Sleep apnea in adult G47.33 [facility] [address] 45674- 6422 Jul, Hypertension I10 ; Sleep apnea in adult G47.33 ; Body mass index (BMI) of 40.0-44.9 in adult Z68.41 ; Morbid (severe) obesity due to excess calories E66.01 and Female hirsutism L68.0 [facility] [address] 82502- 3401 Jul, Generalized anxiety disorder 300.02 [facility] [address] 91303- 6896 Jul, Generalized anxiety disorder 300.02 [facility] [id number] [place] [address] 55019 -1346 Jun, Chronic fatigue R53.82 [facility] [id number] [place] [address] 45653- 0008 Jun, Generalized anxiety disorder F41.1 [facility] [id number] [place] [address] 07842- 2946 May, Generalized anxiety disorder 300.02 [facility] [address] 63474- 4638 Apr, Generalized anxiety disorder F41.1 ; Hypertension I10 ; Hyperlipidemia E78.5 ; Female hirsutism L68.0 and Sleep apnea in adult G47.33 [facility] [address] [place] [address]- 0134 Mar, Hypertension I10 and Generalized anxiety disorder F41.1 [place] [address] 09776- 3437 Mar, [facility] [address] 36086- 9758 February, Hypertension I10 and Generalized anxiety disorder F41.1 [place] [address] 93859- 1392 February, Generalized anxiety disorder 300.02 [facility] [address] 49172 -5987 February, Pelvic pain R10.2 and Painful bladder spasm R30.1 [place] [address] 61211- 5593 Jan, Generalized anxiety disorder 300.02 [place] [address] 89188- 2761 Dec, Obesity, unspecified E66.9 ; Generalized anxiety disorder F41.1 and Hypertension I10 [place] [address] 80399- 6196 15 Nov, 2016 Generalized anxiety disorder F41.1 ; Hypertension I10 ; Depression F32.9 and Obesity, unspecified E66.9 [place] [address] 66797- 5026 Nov, Generalized anxiety disorder 300.02 [facility] [address] 47007- 7677 Oct, [place] [address] 33111- 0443 Sep, History of pneumonia Z87.01 ; Hypokalemia E87.6 ; Hypertension I10 and Encounter for immunization Z23 [place] [address] 80120- 6709 Jul, [place] [address] [address] 2093 Apr, Hypertension I10 ; Hypercholesteremia E78.0 ; Obesity, unspecified E66.9 ; Anxiety F41.9 and Lumbago M54.5 [facility] [address] [place] [address] 32886- 8089 Apr, Depression F32.9 [place] [id number] [place] [address] 13789- 5472 Mar, Essential (primary) hypertension I10 [place] [id number] [address] Jan [facility] [id number] [place] [address] 47032- 5367 Dec, [facility] [id number] [place] [address] 01771- 9479 Dec, Generalized anxiety disorder F41.1 and Hypertension I10 [facility] [id number] [place] [address] 94251- 1349 Dec, [place] [id number] [place] [address] 35452- 7037 Dec, Abdominal pain R10.9 [place] [id number] [place] [address] 17150- 1027 Dec, Left sided abdominal pain of unknown cause R10.30 [facility] [id number] [place] [address] 68205- 1345 Nov, Generalized anxiety disorder 300.02 [facility] [id number] [place] [address] 10574- 8285 Nov, Female hirsutism L68.0 ; Hypertension I10 ; Hyperlipidemia E78.5 ; Depression F32.9 and Anxiety F41.9 [facility] [address] [place] [address] 74751- 4806 Oct, [facility] [id number] [place] [address] 84751- 4346 Oct, [facility] [id number] [place] [address] 81537- 1341 Oct, [facility] [id number] [place] [address] 41242- 8871 Oct, [place] [id number] [place] [address] 98789- 3706 Oct, Well woman exam Z01.419 ; Encounter [...] unspecified obesity severity, unspecified obesity type E66.9 [place] [id number] [place] [address] 28906- 2665 Jun, Generalized anxiety disorder 300.02 [place] [id number] [place] [address] 02695- 8460 Jun, Chest pain 786.50 ; Hypertension 401.9 ; Hyperlipemia 272.4 and Obesity 278.00 [place] [id number] [place] [address] 13526- 0187 Apr, Generalized anxiety disorder 300.02 [facility] [id number] [place] [address] 52125- 8986 Apr, Generalized anxiety disorder 300.02 [facility] [id number] [place] [address] 36809- 3483 Apr, [facility] [id number] [place] [address] 84082- 1757 Apr, [facility] [id number] [place] [address] 90998- 5978 Apr, Abdominal pain 789.00 ; Dehydration 276.51 ; Generalized anxiety disorder 300.02 ; Other and unspecified bipolar disorders 296.89 ; Obesity, unspecified 278.00 ; Family history of hypercholesterolemia V18.19 ; Diarrhea 787.91 ; Sleep apnea in adult 327.23 and Essential hypertension 401.9 [facility] [id number] [address]- 4962 Mar, Generalized anxiety disorder 300.02 [facility] [address] 02108- 3745 February, [facility] [id number] [place] [address] 98876- 2584 Jan, [facility] [id number] [place] [address] 30968- 3683 Jan, [facility] [id number] [place] [address] 049629- 7303 Oct, [facility] [id number] [place] [address] 41792- 6032 Oct, [facility] [id number] [place] [address] 56265- 2800 Oct, [facility] [id number] [place] [address] 51456- 8325 Oct, [facility] [id number] [place] [address] 58328- 5515 Sep, [facility] [id number] [place] [address] 47440- 2890 Sep, [facility] [id number] [place] [address] 904786- 7232 Sep, [facility] [id number] [place] [address] 725765- 5068 Sep, [facility] [id number] [place] [address] 65517- 7472 Sep, [facility] [id number] [place] [address] 87152- 4226 Sep, [facility] [place] [facility] [address] [id number] [place] [address]- 5432 Sep, [facility] [place] [facility] [address] [id number] [place] [address]- 3305 Aug, [facility] [place] [facility] [address] [id number] [place] [address]- 7822 Aug, [facility] [place] [facility] [address] [id number] [place] [address]- 8045 Aug, [facility] [place] [facility] [address] [id number] [place] [address]- 6211 Aug, [facility] [place] [facility] [address] [id number] [place] 3886 Jul, [facility] [place] [facility] [address] [id number] [place] [address]- 8989 Jul, [facility] [place] [facility] [address] [id number] [place] [address]- 0445 Jul, [facility] [place] [facility] [address] [id number] [place] [address]- 3845 Jul, [facility] [place] [facility] [address] [id number] [place] [address]- 0600 Jul, [facility] [place] [facility] [address] [id number] 1055 Jul, [facility] [place] [facility] [address] [id number] [address]- 7840 Jul, [facility] [place] [facility] [address] [id number] [place] [address]- 1782 Jul, [facility] [place] [facility] [address] [id number] [place] [address]- 0197 Jun, [facility] [place] [facility] [address] [id number] [place] [address]- 3028 Jun, [facility] [place] [facility] [address] [id number] [place] [address]- 6761 15 Sep, 2013 [facility] [place] [facility] [address] [id number] [place] [address]- 7127 15 Sep, 2013 [facility] [place] [facility] [address] [id number] [place] [address]- 4827 09 Sep, 2013 [facility] [place] [facility] [address] [id number] [place] [address]- 7836 09 Sep, 2013 [facility] [place] [facility] [address] [id number] [place] [address]- 4402 04 Sep, 2013 [facility] [place] [facility] [address] [id number] [place] [address]- 2561 04 Sep, 2013 [facility] [place] [facility] [address] [id number] [place] [address]- 1926 02 Sep, 2013 [facility] [place] [facility] [address] [id number] [place] [address]- 1833 02 Sep, 2013 [facility] [place] [facility] [address] [id number] [place] [address]- 1613 02 Sep, 2013 [facility] [place] [facility] [address] [id number] [place] [address]- 4610 02 Jun, 2013 [facility] [place] [facility] [address] [id number] [place] [address]- 5381 02 Sep, 2013 [facility] [place] [facility] [address] [id number] [place] [address]- 2543 Jun, 2013 [facility] [place] [facility] [address] [id number] [place] [address]- 2547 Jun, 2013 [facility] [place] [facility] [address] [id number] [place] [address]- 0801 Jun, 2013 [facility] [place] [facility] [address] [id number] [place] [address]- 2323 May, [facility] [place] [facility] [address] [id number] [place] [address]- 4021 May, [facility] [place] [facility] [address] [id number] [place] [address]- 5742 Apr, [facility] [place] [facility] [address] [id number] [place] [address]- 1461 Apr, [facility] [place] [facility] [address] [id number] [place] [address]- 4233 Apr, [facility] [place] [facility] [address] [id number] [place] [address]- 8038 Apr, [facility] [place] [facility] [address] [id number] [place] [address]- 2484 Apr, [facility] [place] [facility] [address] [id number] [place] [address]- 1255 Apr, [facility] [place] [facility] [address] [id number] [place] [address]- 7147 Apr, [facility] [place] [facility] [address] [id number] [place] [address]- 4715 Apr, [facility] [place] [facility] [address] [id number] [place] [address]- 0451 Apr, [facility] [place] [facility] [address] [id number] [place] [address]- 5331 Apr, [facility] [place] [facility] [address] [id number] [place] [address]- 0368 Apr, [facility] [place] [facility] [address] [id number] [place] [address]- 7170 Apr, [facility] [place] [facility] [address] [id number] [place] [address]- 4422 Apr, [facility] [place] [facility] [address] [id number] [place] [address]- 5665 Apr, [facility] [place] [facility] [address] [id number] [place] [address]- 3143 Apr, [facility] [place] [facility] [address] [id number] [place] [address]- 4115 Apr, [facility] [place] [facility] [address] [id number] [place] [address]- 7602 Apr, [facility] [place] [facility] [address] [id number] [place] [address]- 8047 Apr, [facility] [place] [facility] [address] [id number] [place] [address]- 8056 Apr, [facility] [place] [facility] [address] [id number] [place] [address]- 1501 Apr, [facility] [place] [facility] [address] [id number] [place] [address]- 5460 Mar, [facility] [place] [facility] [address] [id number] [place] [address]- 5070 Mar, [facility] [place] [facility] [address] [id number] [place] [address]- 2915 February, [facility] [place] [facility] [address] [id number] [place] [address]- 9334 February, [facility] [place] [facility] [address] [id number] [place] [address]- 8968 Jan, [facility] [place] [facility] [address] [id number] [place] [address]- 4534 Jan, [facility] [place] [facility] [address] [id number] [place] [address]- 3575 Jan, [facility] [place] [facility] [address] [id number] [place] [address]- 6383 Jan, [facility] [place] [facility] [address] [id number] [place] [address]- 1555 Dec, [facility] [place] [facility] [address] [id number] [place] [address]- 6875 Dec, [facility] [place] [facility] [address] [id number] [place] [address]- 7931 Oct, [facility] [place] [facility] [address] [id number] [place] [address]- 5610 Oct, [facility] [place] [facility] [address] [id number] [place] [address]- 9103 Oct, [facility] [place] [facility] [address] [id number] [place] [address]- 1306 Oct, [facility] [place] [facility] [address] [id number] [place] [address]- 6962 Aug, [facility] [place] [facility] [address] [id number] [place] [address]- 0464 Aug, [facility] [place] [facility] [address] [id number] [place] [address]- 6335 Aug, [facility] [place] [facility] [address] [id number] [place] [address]- 7413 Aug, [facility] [place] [facility] [address] [id number] [place] [address]- 4282 Jul, [facility] [place] [facility] [address] [id number] [place] [address]- 7357 Jul, [facility] [place] [facility] [address] [id number] [place] [address]- 1381 Jul, [facility] [place] [facility] [address] [id number] [place] [address]- 7504 Jun, [facility] [place] [facility] [address] [id number] [place] [address]- 5722 May, [facility] [place] [facility] [address] [id number] [place] [address]- 2545 Apr, [facility] [place] [facility] [address] [id number] [place] [address]- 0106 Apr, [facility] [place] [facility] [address] [id number] [place] [address]- 2546 Apr, [facility] [place] [facility] [address] [id number] [place] [address]- 3009 Apr, [facility] [address] [id number] [place] [address]- 0479 Mar, [facility] [place] [facility] [address] [id number] [place] [address] Mar, [facility] [place] [facility] [address] [id number] [place] [address] Mar, [facility] [place] [facility] [address] [id number] [place] [address] Mar, [facility] [place] [facility] [address] [id number] [place] [address] February, [facility] [place] [facility] [address] [id number] [place] [address] February, [facility] [place] [facility] [address] [id number] [place] [address] February, [facility] [place] [facility] [address] [id number] [place] [address] February, [facility] [place] [facility] [address] [id number] [place] [address] February, [facility] [place] [facility] [address] [id number] [place] [address] Jan, [facility] [place] [facility] [address] [id number] [place] [address] Dec, [facility] [place] [facility] [address] [id number] [place] [address] Nov, [facility] [place] [facility] [address] [id number] [place] [address] Nov, [facility] [place] [facility] [address] [id number] [place] [address] Nov, [facility] [place] [facility] [address] [id number] [place] [address] Oct, [facility] [place] [facility] [address] [id number] [place] [address] Oct, [facility] [address] [id number] [place] [address] Oct, [facility] [address] [id number] [place] [address] Oct, [facility] [address] [id number] [place] [address] Oct, [facility] [address] [id number] [place] [address] Oct, [facility] [address] [id number] [place] [address] Sep, [facility] [address] [id number] [place] [address] Sep, [facility] [address] [id number] [place] [address] Sep, [facility] [address] [id number] [place] [address] Sep, [facility] [address] [id number] [place] [address] Aug, [facility] [address] [facility] [id number] [place] [address] Aug, [facility] [address] [id number] [place] [address] Aug, [facility] [address] [id number] [place] [address] Aug, [facility] [place] [facility] [address] [id number] [place] [address] Aug, [facility] [place] [facility] [address] [id number] [place] [address] Aug, [facility] [address] [id number] [place] [address] Jul, [facility] [place] [facility] [address] [id number] [place] [address] Jul, [facility] [place] [facility] [address] [id number] [place] [address] Jul, [facility] [place] [facility] [address] [id number] [place] [address] Jul, [facility] [place] [facility] [address] [id number] [place] [address] Jul, [facility] [place] [facility] [address] [id number] [place] [address] Jul, [facility] [place] [facility] [address] [id number] [place] [address] Jul, [facility] [place] [facility] [address] [id number] [place] [address] Jul, [facility] [place] [facility] [address] [id number] [place] [address] Jul, [facility] [place] [facility] [address] [id number] [place] [address] Jul, [facility] [place] [facility] [address] [id number] [place] [address] 26 Jun, 2012 [facility] [place] [facility] [address] [id number] [place] [address] 14 Jun, 2012 [facility] [place] [facility] [address] [id number] [place] [address] 12 Jun, 2012 [facility] [place] [facility] [address] [id number] [place] [address] May, [facility] [place] [facility] [address] [id number] [place] [address] May, [facility] [place] [facility] [address] [id number] [place] [address] May, [facility] [place] [facility] [address] [id number] [place] [address]- [address] May, [facility] [place] [facility] [address] [id number] [place] [address] Apr, [facility] [place] [facility] [address] [id number] [place] [address] Apr, [facility] [place] [facility] [address] [id number] [place] [address] Apr, [facility] [place] [facility] [address] [id number] [place] [address] Apr, [facility] [place] [facility] [address] [id number] [place] [address] Mar, [facility] [place] [facility] [address] [id number] [place] [address] Mar, [facility] [place] [facility] [address] [id number] [place] [address] Mar, [facility] [place] [facility] [address] [id number] [place] [address] February, [facility] [place] [facility] [address] [id number] [place] [address] February, [facility] [place] [facility] [address] [id number] [place] [address] Jan, [facility] [place] [facility] [address] [id number] [place] [address] Jan, [facility] [place] [facility] [address] [id number] [place] [address] Jan, [facility] [place] [facility] [address] [id number] [place] [address] 29 Dec, 2011 [facility] [place] [facility] [address] [id number] [place] [address] Dec, [facility] [place] [facility] [address] [id number] [place] [address] Dec, [facility] [place] [facility] [address] [id number] [place] [address] Dec, [facility] [place] [facility] [address] [id number] [place] [address] 29 Nov, 2011 [facility] [place] [facility] [address] [id number] [place] [address] Nov, [facility] [place] [facility] [address] [id number] [place] [address] Nov, [facility] [place] [facility] [address] [id number] [place] [address] 16 Nov, 2011 [facility] [place] [facility] [address] [id number] [place] [address] Nov, [facility] [place] [facility] [address] [id number] [place] [address] Nov, [facility] [place] [facility] [address] [id number] [place] [address] Nov, [facility] [place] [facility] [address] [id number] [place] [address] Oct, [facility] [place] [facility] [address] [id number] [place] [address] Oct, [facility] [place] [facility] [address] [id number] [place] [address] Oct, [facility] [place] [facility] [address] [id number] [place] [address] Oct, [facility] [place] [facility] [address] [id number] [place] [address] Oct, [facility] [place] [facility] [address] [id number] [place] [address] Oct, [facility] [place] [facility] [address] [id number] [place] [address] Oct, [facility] [place] [facility] [address] [id number] [place] [address] Oct, [facility] [place] [facility] [address] [id number] [place] [address] Sep, [facility] [place] [facility] [address] [id number] [place] [address] Sep, [facility] [place] [facility] [address] [id number] [place] [address] Sep, [facility] [place] [facility] [address] [id number] [place] [address] Sep, [facility] [place] [facility] [address] [id number] [place] [address] Aug, [facility] [place] [facility] [address] [id number] [place] [address] Aug, [facility] [place] [facility] [address] [id number] [place] [address] Aug, [facility] [place] [facility] [address] [id number] [place] [address] Jul, [facility] [place] [facility] [address] [id number] [place] [address] Jul, [facility] [place] [facility] [address] [id number] [place] [address] Jul, [facility] [place] [facility] [address] [id number] [place] [address] Oct, [facility] [place] [facility] [address] [id number] [address] Aug, [facility] [place] [facility] [address] [id number] [place] [address] Aug, [facility] [place] [facility] [address] [id number] [place] [address] 30 Sep, 2009 [facility] [place] [facility] [address] [id number] [place] [address] Sep, [facility] [place] [facility] [address] [facility] [id number] [place] [id number] Sep, [facility] [address] [facility] [id number] [place] [address] Jan, IMMUNIZATIONS No Known Immunizations SOCIAL HISTORY Never Assessed REASON FOR VISIT FYI PLAN OF CARE VITAL SIGNS MEDICATIONS Unknown [...]
--- OUTSIDE RECORDS SUMMARY | 2018-08-05 07:51 | XMS REPORT ---
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 Name Role Phone GAMAL CLARK Unavailable PROBLEMS Type Condition ICD9-CM Code RZD75-CB Code Onset Dates Condition Status SNOMED Code Problem Rectal bleed K62.5 Active 78832761 Problem Dry eyes H04.123 Active 890742759 Problem Body mass index (BMI) of 40.0-44.9 in adult Z68.41 Active 293175239 Problem Sleep apnea in adult G47.33 Active 73596233 Problem Anal fissure K60.2 Active 52809298 Problem Chronic fatigue R53.82 Active 01971403 Problem Hypertension I10 Active 50611487 ALLERGIES No Information ENCOUNTERS Encounter Location Date Diagnosis [place] [id number] [place] [address] 37191- 0556 Jun, [place] [address] 75813- 2110 May, Hypertension I10 [place] [id number] [place] [address] 02881- 3104 May, Generalized anxiety disorder 300.02 [facility] [id number] [place] [address] 68490- 4478 Apr, Sleep apnea in adult G47.33 ; Hypertension I10 and Dry eyes H04.123 [facility] [id number] [place] [address] 75438- 3336 Apr, [facility] [id number] [place] [address] 04122- 4740 Apr, [facility] [id number] [place] [address] 17363- 1438 Apr, Generalized anxiety disorder 300.02 [facility] [id number] [place] [address] 66695- 3646 Apr, Generalized anxiety disorder F41.1 [facility] [id number] [place] [address] 19348- 8321 Apr, Left breast mass N63.20 [facility] [id number] [place] [address] 50265- 4831 Apr, Generalized anxiety disorder F41.1 [facility] [id number] [place] [address] 46628- 6156 Mar, Generalized anxiety disorder 300.02 [facility] [address] 41429- 6268 Mar, [facility] [id number] [place] [address] 19442- 6676 Mar, Generalized anxiety disorder 300.02 [facility] [address] 63103- 7370 Mar, Acute serous otitis media of left ear, recurrence not specified H65.02 ; Dizziness R42 and BMI 40.0-44.9, adult Z68.41 [place] [id number] [place] [address] 20274- 1878 February, Hypertension I10 [place] [id number] [place] [address] 27957- 7781 February, Visit for TB skin test Z11.1 ; Encounter for physical examination related to employment Z02.1 ; Hypertension I10 ; Generalized anxiety disorder F41.1 ; BMI 40.0-44.9, adult Z68.41 and Chronic fatigue R53.82 [place] [id number] [place] [address] 84480- 4189 February, Rectal bleeding K62.5 and BMI 40.0-44.9, adult Z68.41 [place] [id number] [place] [address] 03005- 3967 Jan, BMI 40.0-44.9, adult Z68.41 and Skin irritation R23.8 [facility] [address] 76465- 5211 Jan, Generalized anxiety disorder F41.1 [facility] [address] 37293- 6640 Dec, [facility] [address] 38318- 3191 Nov, Body mass index (BMI) of 40.0-44.9 in adult Z68.41 ; Hypertension I10 and Seasonal allergic rhinitis, unspecified trigger J30.2 [facility] [address] 91336- 9426 Nov, Hypertension I10 [place] [address] 75839- 9147 Nov, Generalized anxiety disorder 300.02 [facility] [address] 66322- 4865 Nov, [facility] [address] 73338- 9969 Oct, [facility] [address] 55397- 9356 Oct, [facility] [address] 89301- 4115 Oct, Acute chest wall pain R07.89 [facility] [id number] [place] [address] 71959- 0766 Oct, [facility] [address] 67158- 6992 Sep, Left breast mass N63.20 [facility] [address] 82667- 0986 Sep, Left breast mass N63.20 [facility] [address] [place] [address]- 0553 Aug, Hypertension I10 [facility] [id number] [place] [address] 73272- 4497 Aug, Generalized anxiety disorder 300.02 [facility] [id number] [place] [address] 04354- 8749 Jul, Generalized anxiety disorder 300.02 [facility] [address] 92179- 5091 Jul, Sleep apnea in adult G47.33 [facility] [address] 44808- 4233 Jul, Hypertension I10 ; Sleep apnea in adult G47.33 ; Body mass index (BMI) of 40.0-44.9 in adult Z68.41 ; Morbid (severe) obesity due to excess calories E66.01 and Female hirsutism L68.0 [facility] [address] 27340- 8746 Jul, Generalized anxiety disorder 300.02 [facility] [address] 67627- 4703 Jul, Generalized anxiety disorder 300.02 [facility] [id number] [place] [address] 58850 -8311 Jun, Chronic fatigue R53.82 [facility] [id number] [place] [address] 77787- 7442 Jun, Generalized anxiety disorder F41.1 [facility] [id number] [place] [address] 87270- 8771 May, Generalized anxiety disorder 300.02 [facility] [address] 77901- 8007 Apr, Generalized anxiety disorder F41.1 ; Hypertension I10 ; Hyperlipidemia E78.5 ; Female hirsutism L68.0 and Sleep apnea in adult G47.33 [facility] [address] [place] [address]- 1994 Mar, Hypertension I10 and Generalized anxiety disorder F41.1 [place] [address] 29165- 8463 Mar, [facility] [address] 84717- 7242 February, Hypertension I10 and Generalized anxiety disorder F41.1 [place] [address] 29851- 8771 February, Generalized anxiety disorder 300.02 [facility] [address] 97372 -6451 February, Pelvic pain R10.2 and Painful bladder spasm R30.1 [place] [address] 81449- 1310 Jan, Generalized anxiety disorder 300.02 [place] [address] 05978- 4322 Dec, Obesity, unspecified E66.9 ; Generalized anxiety disorder F41.1 and Hypertension I10 [place] [address] 51329- 3400 15 Nov, 2016 Generalized anxiety disorder F41.1 ; Hypertension I10 ; Depression F32.9 and Obesity, unspecified E66.9 [place] [address] 19673- 2351 Nov, Generalized anxiety disorder 300.02 [facility] [address] 59093- 9900 Oct, [place] [address] 16315- 2641 Sep, History of pneumonia Z87.01 ; Hypokalemia E87.6 ; Hypertension I10 and Encounter for immunization Z23 [place] [address] 89185- 2804 Jul, [place] [address] [address]- 1873 Apr, Hypertension I10 ; Hypercholesteremia E78.0 ; Obesity, unspecified E66.9 ; Anxiety F41.9 and Lumbago M54.5 [facility] [address] [place] [address] 88083- 9511 Apr, Depression F32.9 [place] [id number] [place] [address] 02689- 3387 Mar, Essential (primary) hypertension I10 [place] [id number] [address] Jan [facility] [id number] [place] [address] 94016- 2440 Dec, [facility] [id number] [place] [address] 50780- 7090 Dec, Generalized anxiety disorder F41.1 and Hypertension I10 [facility] [id number] [place] [address] 90994- 7703 Dec, [place] [id number] [place] [address] 29937- 8555 Dec, Abdominal pain R10.9 [place] [id number] [place] [address] 74109- 7471 Dec, Left sided abdominal pain of unknown cause R10.30 [facility] [id number] [place] [address] 60309- 5697 Nov, Generalized anxiety disorder 300.02 [facility] [id number] [place] [address] 72402- 8010 Nov, Female hirsutism L68.0 ; Hypertension I10 ; Hyperlipidemia E78.5 ; Depression F32.9 and Anxiety F41.9 [facility] [address] [place] [address] 36186- 1083 Oct, [facility] [id number] [place] [address] 64930- 9078 Oct, [facility] [id number] [place] [address] 62651- 7028 Oct, [facility] [id number] [place] [address] 35775- 2858 Oct, [place] [id number] [place] [address] 08807- 8648 Oct, Well woman exam Z01.419 ; Encounter [...] unspecified obesity severity, unspecified obesity type E66.9 [place] [id number] [place] [address] 83568- 3632 Jun, Generalized anxiety disorder 300.02 [place] [id number] [place] [address] 62301- 3535 Jun, Chest pain 786.50 ; Hypertension 401.9 ; Hyperlipemia 272.4 and Obesity 278.00 [place] [id number] [place] [address] 42159- 5017 Apr, Generalized anxiety disorder 300.02 [facility] [id number] [place] [address] 11135- 6146 Apr, Generalized anxiety disorder 300.02 [facility] [id number] [place] [address] 23626- 6241 Apr, [facility] [id number] [place] [address] 18333- 5005 Apr, [facility] [id number] [place] [address] 53037- 1036 Apr, Abdominal pain 789.00 ; Dehydration 276.51 ; Generalized anxiety disorder 300.02 ; Other and unspecified bipolar disorders 296.89 ; Obesity, unspecified 278.00 ; Family history of hypercholesterolemia V18.19 ; Diarrhea 787.91 ; Sleep apnea in adult 327.23 and Essential hypertension 401.9 [facility] [id number] [address]- 7730 Mar, Generalized anxiety disorder 300.02 [facility] [address] 83552- 1709 February, [facility] [id number] [place] [address] 41364- 9863 Jan, [facility] [id number] [place] [address] 56952- 0717 Jan, [facility] [id number] [place] [address] 311868- 3962 Oct, [facility] [id number] [place] [address] 69863- 9501 Oct, [facility] [id number] [place] [address] 21466- 8027 Oct, [facility] [id number] [place] [address] 58299- 7122 Oct, [facility] [id number] [place] [address] 31997- 6257 Sep, [facility] [id number] [place] [address] 72546- 1231 Sep, [facility] [id number] [place] [address] 420493- 4656 Sep, [facility] [id number] [place] [address] 330851- 7472 Sep, [facility] [id number] [place] [address] 23140- 8528 Sep, [facility] [id number] [place] [address] 54610- 1156 Sep, [facility] [place] [facility] [address] [id number] [place] [address]- 2819 Sep, [facility] [place] [facility] [address] [id number] [place] [address]- 9169 Aug, [facility] [place] [facility] [address] [id number] [place] [address]- 9652 Aug, [facility] [place] [facility] [address] [id number] [place] [address]- 8374 Aug, [facility] [place] [facility] [address] [id number] [place] [address]- 9242 Aug, [facility] [place] [facility] [address] [id number] [place] 5896 Jul, [facility] [place] [facility] [address] [id number] [place] [address]- 3585 Jul, [facility] [place] [facility] [address] [id number] [place] [address]- 9531 Jul, [facility] [place] [facility] [address] [id number] [place] [address]- 9498 Jul, [facility] [place] [facility] [address] [id number] [place] [address]- 6688 Jul, [facility] [place] [facility] [address] [id number] 9866 Jul, [facility] [place] [facility] [address] [id number] [address]- 6655 Jul, [facility] [place] [facility] [address] [id number] [place] [address]- 6769 Jul, [facility] [place] [facility] [address] [id number] [place] [address]- 7780 Jun, [facility] [place] [facility] [address] [id number] [place] [address]- 3425 Jun, [facility] [place] [facility] [address] [id number] [place] [address]- 1883 15 Sep, 2013 [facility] [place] [facility] [address] [id number] [place] [address]- 9107 15 Sep, 2013 [facility] [place] [facility] [address] [id number] [place] [address]- 8504 09 Sep, 2013 [facility] [place] [facility] [address] [id number] [place] [address]- 4310 09 Sep, 2013 [facility] [place] [facility] [address] [id number] [place] [address]- 1687 04 Sep, 2013 [facility] [place] [facility] [address] [id number] [place] [address]- 5697 04 Sep, 2013 [facility] [place] [facility] [address] [id number] [place] [address]- 0099 02 Sep, 2013 [facility] [place] [facility] [address] [id number] [place] [address]- 3941 02 Sep, 2013 [facility] [place] [facility] [address] [id number] [place] [address]- 2858 02 Sep, 2013 [facility] [place] [facility] [address] [id number] [place] [address]- 1542 02 Jun, 2013 [facility] [place] [facility] [address] [id number] [place] [address]- 9471 02 Sep, 2013 [facility] [place] [facility] [address] [id number] [place] [address]- 254 Jun, 2013 [facility] [place] [facility] [address] [id number] [place] [address]- 2547 Jun, 2013 [facility] [place] [facility] [address] [id number] [place] [address]- 4955 Jun, 2013 [facility] [place] [facility] [address] [id number] [place] [address]- 6899 May, [facility] [place] [facility] [address] [id number] [place] [address]- 1605 May, [facility] [place] [facility] [address] [id number] [place] [address]- 3379 Apr, [facility] [place] [facility] [address] [id number] [place] [address]- 3186 Apr, [facility] [place] [facility] [address] [id number] [place] [address]- 6292 Apr, [facility] [place] [facility] [address] [id number] [place] [address]- 3076 Apr, [facility] [place] [facility] [address] [id number] [place] [address]- 4706 Apr, [facility] [place] [facility] [address] [id number] [place] [address]- 1501 Apr, [facility] [place] [facility] [address] [id number] [place] [address]- 6508 Apr, [facility] [place] [facility] [address] [id number] [place] [address]- 5606 Apr, [facility] [place] [facility] [address] [id number] [place] [address]- 6518 Apr, [facility] [place] [facility] [address] [id number] [place] [address]- 9251 Apr, [facility] [place] [facility] [address] [id number] [place] [address]- 7602 Apr, [facility] [place] [facility] [address] [id number] [place] [address]- 6145 Apr, [facility] [place] [facility] [address] [id number] [place] [address]- 0790 Apr, [facility] [place] [facility] [address] [id number] [place] [address]- 0213 Apr, [facility] [place] [facility] [address] [id number] [place] [address]- 3864 Apr, [facility] [place] [facility] [address] [id number] [place] [address]- 7987 Apr, [facility] [place] [facility] [address] [id number] [place] [address]- 1823 Apr, [facility] [place] [facility] [address] [id number] [place] [address]- 2923 Apr, [facility] [place] [facility] [address] [id number] [place] [address]- 0802 Apr, [facility] [place] [facility] [address] [id number] [place] [address]- 5646 Apr, [facility] [place] [facility] [address] [id number] [place] [address]- 3664 Mar, [facility] [place] [facility] [address] [id number] [place] [address]- 7459 Mar, [facility] [place] [facility] [address] [id number] [place] [address]- 2718 February, [facility] [place] [facility] [address] [id number] [place] [address]- 2564 February, [facility] [place] [facility] [address] [id number] [place] [address]- 4270 Jan, [facility] [place] [facility] [address] [id number] [place] [address]- 4814 Jan, [facility] [place] [facility] [address] [id number] [place] [address]- 1320 Jan, [facility] [place] [facility] [address] [id number] [place] [address]- 9613 Jan, [facility] [place] [facility] [address] [id number] [place] [address]- 5678 Dec, [facility] [place] [facility] [address] [id number] [place] [address]- 9684 Dec, [facility] [place] [facility] [address] [id number] [place] [address]- 7236 Oct, [facility] [place] [facility] [address] [id number] [place] [address]- 7873 Oct, [facility] [place] [facility] [address] [id number] [place] [address]- 6687 Oct, [facility] [place] [facility] [address] [id number] [place] [address]- 1386 Oct, [facility] [place] [facility] [address] [id number] [place] [address]- 5732 Aug, [facility] [place] [facility] [address] [id number] [place] [address]- 6985 Aug, [facility] [place] [facility] [address] [id number] [place] [address]- 9017 Aug, [facility] [place] [facility] [address] [id number] [place] [address]- 1038 Aug, [facility] [place] [facility] [address] [id number] [place] [address]- 9949 Jul, [facility] [place] [facility] [address] [id number] [place] [address]- 8811 Jul, [facility] [place] [facility] [address] [id number] [place] [address]- 3261 Jul, [facility] [place] [facility] [address] [id number] [place] [address]- 6840 Jun, [facility] [place] [facility] [address] [id number] [place] [address]- 9838 May, [facility] [place] [facility] [address] [id number] [place] [address]- 2548 Apr, [facility] [place] [facility] [address] [id number] [place] [address]- 7056 Apr, [facility] [place] [facility] [address] [id number] [place] [address]- 2546 Apr, [facility] [place] [facility] [address] [id number] [place] [address]- 1299 Apr, [facility] [address] [id number] [place] [address]- 2046 Mar, [facility] [place] [facility] [address] [id number] [place] [address]- 4066 Mar, [facility] [place] [facility] [address] [id number] [place] [address]- 2076 Mar, [facility] [place] [facility] [address] [id number] [place] [address]- 1181 Mar, [facility] [place] [facility] [address] [id number] [place] [address]- 6736 February, [facility] [place] [facility] [address] [id number] [place] [address]- 1516 February, [facility] [place] [facility] [address] [id number] [place] [address]- 6393 February, [facility] [place] [facility] [address] [id number] [place] [address]- 6225 February, [facility] [place] [facility] [address] [id number] [place] [address]- 2733 February, [facility] [place] [facility] [address] [id number] [place] [address] Jan, [facility] [place] [facility] [address] [id number] [place] [address] Dec, [facility] [place] [facility] [address] [id number] [address] Nov, [facility] [place] [facility] [address] [id number] [place] [address] Nov, [facility] [place] [facility] [address] [id number] [place] [address] Nov, [facility] [place] [facility] [address] [id number] [place] [address] Oct, [facility] [place] [facility] [address] [id number] [place] [address] Oct, [facility] [address] [id number] [place] [address] Oct, [facility] [address] [id number] [place] [address] Oct, [facility] [address] [id number] [place] [address] Oct, [facility] [address] [id number] [place] [address] Oct, [facility] [address] [id number] [place] [address] Sep, [facility] [address] [id number] [place] [address] Sep, [facility] [address] [id number] [place] [address] Sep, [facility] [address] [id number] [place] [address] Sep, [facility] [address] [id number] [place] [address] Aug, [facility] [address] [facility] [id number] [place] [address] Aug, [facility] [address] [id number] [place] [address] Aug, [facility] [address] [id number] [place] [address] Aug, [facility] [place] [facility] [address] [id number] [place] [address] Aug, [facility] [place] [facility] [address] [id number] [place] [address] Aug, [facility] [address] [id number] [place] [address] Jul, [facility] [place] [facility] [address] [id number] [place] [address] Jul, [facility] [place] [facility] [address] [id number] [place] [address] Jul, [facility] [place] [facility] [address] [id number] [place] [address] Jul, [facility] [place] [facility] [address] [id number] [place] [address] Jul, [facility] [place] [facility] [address] [id number] [place] [address] Jul, [facility] [place] [facility] [address] [id number] [place] [address] Jul, [facility] [place] [facility] [address] [id number] [place] [address] Jul, [facility] [place] [facility] [address] [id number] [place] [address] Jul, [facility] [place] [facility] [address] [id number] [place] [address] Jul, [facility] [place] [facility] [address] [id number] [place] [address] 26 Jun, 2012 [facility] [place] [facility] [address] [id number] [place] [address] 14 Jun, 2012 [facility] [place] [facility] [address] [id number] [place] [address] 12 Jun, 2012 [facility] [place] [facility] [address] [id number] [place] [address] May, [facility] [place] [facility] [address] [id number] [place] [address] May, [facility] [place] [facility] [address] [id number] [place] [address] May, [facility] [place] [facility] [address] [id number] [place] [address] May, [facility] [place] [facility] [address] [id number] [place] [address] Apr, [facility] [place] [facility] [address] [id number] [place] [address] Apr, [facility] [place] [facility] [address] [id number] [place] [address] Apr, [facility] [place] [facility] [address] [id number] [place] [address] Apr, [facility] [place] [facility] [address] [id number] [place] [address] Mar, [facility] [place] [facility] [address] [id number] [place] [address] Mar, [facility] [place] [facility] [address] [id number] [place] [address] Mar, [facility] [place] [facility] [address] [id number] [place] [address] February, [facility] [place] [facility] [address] [id number] [place] [place] [address] February, [facility] [place] [facility] [address] [id number] [place] [address] Jan, [facility] [place] [facility] [address] [id number] [place] [address] Jan, [facility] [place] [facility] [address] [id number] [place] [address] Jan, [facility] [place] [facility] [address] [id number] [place] [address] 29 Dec, 2011 [facility] [place] [facility] [address] [id number] [place] [address] Dec, [facility] [place] [facility] [address] [id number] [place] [address] Dec, [facility] [place] [facility] [address] [id number] [place] [address] Dec, [facility] [place] [facility] [address] [id number] [place] [address] 29 Nov, 2011 [facility] [place] [facility] [address] [id number] [place] [address] Nov, [facility] [place] [facility] [address] [id number] [place] [address] Nov, [facility] [place] [facility] [address] [id number] [place] [address] 16 Nov, 2011 [facility] [place] [facility] [address] [id number] [place] [address] Nov, [facility] [place] [facility] [address] [id number] [place] [address] Nov, [facility] [place] [facility] [address] [id number] [place] [address] Nov, [facility] [place] [facility] [address] [id number] [place] [address] Oct, [facility] [place] [facility] [address] [id number] [place] [address] Oct, [facility] [place] [facility] [address] [id number] [place] [address] Oct, [facility] [place] [facility] [address] [id number] [place] [address] Oct, [facility] [place] [facility] [address] [id number] [place] [address] Oct, [facility] [place] [facility] [address] [id number] [place] [address] Oct, [facility] [place] [facility] [address] [id number] [place] [address] Oct, [facility] [place] [facility] [address] [id number] [address] Oct, [facility] [place] [facility] [address] [id number] [place] [address] Sep, [facility] [place] [facility] [address] [id number] [place] [address] Sep, [facility] [place] [facility] [address] [id number] [place] [address] Sep, [facility] [place] [facility] [address] [id number] [place] [address] Sep, [facility] [place] [facility] [address] [id number] [place] [address] Aug, [facility] [place] [facility] [address] [id number] [place] [address] Aug, [facility] [place] [facility] [address] [id number] [place] [address] Aug, [facility] [place] [facility] [address] [id number] [place] [address] Jul, [facility] [place] [facility] [address] [id number] [place] [address] Jul, [facility] [place] [facility] [address] [id number] [place] [address] Jul, [facility] [place] [facility] [address] [id number] [address] Oct, [facility] [place] [facility] [address] [id number] [place] [address] Aug, [facility] [place] [facility] [address] [id number] [place] [address] Aug, [facility] [place] [facility] [address] [id number] [place] [address] 30 Sep, 2009 [facility] [place] [facility] [address] [id number] [place] [address] Sep, [facility] [place] [facility] [address] [facility] [id number] [place] [address] Sep, [facility] [address] [facility] [id number] [place] [address] Jan, IMMUNIZATIONS No Known Immunizations SOCIAL HISTORY Never Assessed REASON FOR VISIT Repository Medication PLAN OF CARE VITAL SIGNS MEDICATIONS Medication Instructions Dosage Frequency Start Date End Date Duration Status BusPIRone HCl 15 mg Orally twice a day 0.5 tablet 12h Active RESULTS No Results PROCEDURES No Known [...]
--- OUTSIDE RECORDS SUMMARY | 2018-08-05 07:51 | XMS REPORT ---
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 Name Role Phone GAMAL CLARK Unavailable PROBLEMS Type Condition ICD9-CM Code KQT71-CB Code Onset Dates Condition Status SNOMED Code Problem Rectal bleed K62.5 Active 28709447 Problem Dry eyes H04.123 Active 587746899 Problem Body mass index (BMI) of 40.0-44.9 in adult Z68.41 Active 677760687 Problem Sleep apnea in adult G47.33 Active 26342948 Problem Anal fissure K60.2 Active 43057094 Problem Chronic fatigue R53.82 Active 06347835 Problem Hypertension I10 Active [id number] ALLERGIES No Information ENCOUNTERS Encounter Location Date Diagnosis [place] [id number] [id number] [place] [address] 02299- 6981 Jun, [place] [address] 12724- 0378 May, Hypertension I10 [place] [id number] [place] [address] 83830- 0612 May, Generalized anxiety disorder 300.02 [facility] [id number] [place] [address] 64023- 4009 Apr, Sleep apnea in adult G47.33 ; Hypertension I10 and Dry eyes H04.123 [facility] [id number] [place] [address] 16855- 0866 Apr, [facility] [id number] [place] [address] 21070- 8544 Apr, [facility] [id number] [place] [address] 03427- 9027 Apr, Generalized anxiety disorder 300.02 [facility] [id number] [place] [address] 83805- 1120 Apr, Generalized anxiety disorder F41.1 [facility] [id number] [place] [address] 10080- 2092 Apr, Left breast mass N63.20 [facility] [id number] [place] [address] 51888- 6170 Apr, Generalized anxiety disorder F41.1 [facility] [id number] [place] [address] 23743- 0659 Mar, Generalized anxiety disorder 300.02 [facility] [address] 38005- 0484 Mar, [facility] [id number] [place] [address] 16524- 8044 Mar, Generalized anxiety disorder 300.02 [facility] [address] 65531- 6372 Mar, Acute serous otitis media of left ear, recurrence not specified H65.02 ; Dizziness R42 and BMI 40.0-44.9, adult Z68.41 [place] [id number] [place] [address] 69507- 3935 February, Hypertension I10 [place] [id number] [place] [address] 43651- 2549 February, Visit for TB skin test Z11.1 ; Encounter for physical examination related to employment Z02.1 ; Hypertension I10 ; Generalized anxiety disorder F41.1 ; BMI 40.0-44.9, adult Z68.41 and Chronic fatigue R53.82 [place] [id number] [place] [address] 12341- 6958 February, Rectal bleeding K62.5 and BMI 40.0-44.9, adult Z68.41 [place] [id number] [place] [address] 39085- 5090 Jan, BMI 40.0-44.9, adult Z68.41 and Skin irritation R23.8 [facility] [address] 19446- 9117 Jan, Generalized anxiety disorder F41.1 [facility] [address] 91509- 9992 Dec, [facility] [address] 32053- 5622 Nov, Body mass index (BMI) of 40.0-44.9 in adult Z68.41 ; Hypertension I10 and Seasonal allergic rhinitis, unspecified trigger J30.2 [facility] [address] 98765- 0433 Nov, Hypertension I10 [place] [address] 57885- 0536 Nov, Generalized anxiety disorder 300.02 [facility] [address] 70555- 7109 Nov, [facility] [address] 89141- 4319 Oct, [facility] [address] 25715- 7407 Oct, [facility] [address] 97756- 6959 Oct, Acute chest wall pain R07.89 [facility] [id number] [place] [address] 08661- 0134 Oct, [facility] [address] 32942- 6511 Sep, Left breast mass N63.20 [facility] [address] 76178- 8918 Sep, Left breast mass N63.20 [facility] [address] [place] [address]- 4394 Aug, Hypertension I10 [facility] [id number] [place] [address] 96595- 2224 Aug, Generalized anxiety disorder 300.02 [facility] [id number] [place] [address] 78762- 1973 Jul, Generalized anxiety disorder 300.02 [facility] [address] 83649- 5735 Jul, Sleep apnea in adult G47.33 [facility] [address] 09245- 9954 Jul, Hypertension I10 ; Sleep apnea in adult G47.33 ; Body mass index (BMI) of 40.0-44.9 in adult Z68.41 ; Morbid (severe) obesity due to excess calories E66.01 and Female hirsutism L68.0 [facility] [address] 31831- 2892 Jul, Generalized anxiety disorder 300.02 [facility] [address] 39664- 7332 Jul, Generalized anxiety disorder 300.02 [facility] [id number] [place] [address] 26085 -7588 Jun, Chronic fatigue R53.82 [facility] [id number] [place] [address] 53929- 7562 Jun, Generalized anxiety disorder F41.1 [facility] [id number] [place] [address] 82666- 0643 May, Generalized anxiety disorder 300.02 [facility] [address] 34257- 1277 Apr, Generalized anxiety disorder F41.1 ; Hypertension I10 ; Hyperlipidemia E78.5 ; Female hirsutism L68.0 and Sleep apnea in adult G47.33 [facility] [address] [place] [address]- 3224 Mar, Hypertension I10 and Generalized anxiety disorder F41.1 [place] [address] 99690- 8296 Mar, [facility] [address] 95270- 0113 February, Hypertension I10 and Generalized anxiety disorder F41.1 [place] [address] 01162- 1620 February, Generalized anxiety disorder 300.02 [facility] [address] 23473 -1604 February, Pelvic pain R10.2 and Painful bladder spasm R30.1 [place] [address] 87031- 6994 Jan, Generalized anxiety disorder 300.02 [place] [address] 10486- 1917 Dec, Obesity, unspecified E66.9 ; Generalized anxiety disorder F41.1 and Hypertension I10 [place] [address] 63700- 5517 15 Nov, 2016 Generalized anxiety disorder F41.1 ; Hypertension I10 ; Depression F32.9 and Obesity, unspecified E66.9 [place] [address] 71711- 0343 Nov, Generalized anxiety disorder 300.02 [facility] [address] 78030- 5243 Oct, [place] [address] 74162- 2056 Sep, History of pneumonia Z87.01 ; Hypokalemia E87.6 ; Hypertension I10 and Encounter for immunization Z23 [place] [address] 97248- 2602 Jul, [place] [address] [address]- 6114 Apr, Hypertension I10 ; Hypercholesteremia E78.0 ; Obesity, unspecified E66.9 ; Anxiety F41.9 and Lumbago M54.5 [facility] [address] [place] [address] 73833- 2338 Apr, Depression F32.9 [place] [id number] [place] [address] 89331- 8198 Mar, Essential (primary) hypertension I10 [place] [id number] [address] Jan [facility] [id number] [place] [address] 80225- 3340 Dec, [facility] [id number] [place] [address] 57428- 9823 Dec, Generalized anxiety disorder F41.1 and Hypertension I10 [facility] [id number] [place] [address] 71001- 5803 Dec, [place] [id number] [place] [address] 69741- 6118 Dec, Abdominal pain R10.9 [place] [id number] [place] [address] 50556- 6519 Dec, Left sided abdominal pain of unknown cause R10.30 [facility] [id number] [place] [address] 68290- 1699 Nov, Generalized anxiety disorder 300.02 [facility] [id number] [place] [address] 07545- 8571 Nov, Female hirsutism L68.0 ; Hypertension I10 ; Hyperlipidemia E78.5 ; Depression F32.9 and Anxiety F41.9 [facility] [address] [place] [address] 39364- 4359 Oct, [facility] [id number] [place] [address] 89632- 9482 Oct, [facility] [address] [id number] [place] [address] 18883- 8182 Oct, [facility] [id number] [place] [address] 03638- 8234 Oct, [place] [id number] [place] [address] 57860- 8653 Oct, Well woman exam Z01.419 ; Encounter [...] unspecified obesity severity, unspecified obesity type E66.9 [place] [id number] [place] [address] 18228- 1425 Jun, Generalized anxiety disorder 300.02 [place] [id number] [place] [address] 21065- 6846 Jun, Chest pain 786.50 ; Hypertension 401.9 ; Hyperlipemia 272.4 and Obesity 278.00 [place] [id number] [place] [address] 50659- 6918 Apr, Generalized anxiety disorder 300.02 [facility] [id number] [place] [address] 49568- 5092 Apr, Generalized anxiety disorder 300.02 [facility] [id number] [place] [address] 57536- 4533 Apr, [facility] [id number] [place] [address] 94681- 2261 Apr, [facility] [id number] [place] [address] 60756- 3398 Apr, Abdominal pain 789.00 ; Dehydration 276.51 ; Generalized anxiety disorder 300.02 ; Other and unspecified bipolar disorders 296.89 ; Obesity, unspecified 278.00 ; Family history of hypercholesterolemia V18.19 ; Diarrhea 787.91 ; Sleep apnea in adult 327.23 and Essential hypertension 401.9 [facility] [id number] [address]- 8258 Mar, Generalized anxiety disorder 300.02 [facility] [address] 95635- 3305 February, [facility] [id number] [place] [address] 33525- 2504 Jan, [facility] [id number] [place] [address] 54883- 0254 Jan, [facility] [id number] [place] [address] 769692- 1428 Oct, [facility] [id number] [place] [address] 10955- 8095 Oct, [facility] [id number] [place] [address] 34640- 9863 Oct, [facility] [id number] [place] [address] 57783- 7804 Oct, [facility] [id number] [place] [address] 15930- 2766 Sep, [facility] [id number] [place] [address] 25455- 0295 Sep, [facility] [id number] [place] [address] 193699- 3917 Sep, [facility] [id number] [place] [address] 190910- 8035 Sep, [facility] [id number] [place] [address] 48253- 2943 Sep, [facility] [id number] [place] [address] 92762- 1556 Sep, [facility] [place] [facility] [address] [id number] [place] [address]- 9423 Sep, [facility] [place] [facility] [address] [id number] [place] [address]- 9892 Aug, [facility] [place] [facility] [address] [id number] [place] [address]- 4536 Aug, [facility] [place] [facility] [address] [id number] [place] [address]- 8961 Aug, [facility] [place] [facility] [address] [id number] [place] [address]- 9736 Aug, [facility] [place] [facility] [address] [id number] [place] 4989 Jul, [facility] [place] [facility] [address] [id number] [place] [address]- 0210 Jul, [facility] [place] [facility] [address] [id number] [place] [address]- 2721 Jul, [facility] [place] [facility] [address] [id number] [place] [address]- 0710 Jul, [facility] [place] [facility] [address] [id number] [place] [address]- 0505 Jul, [facility] [place] [facility] [address] [id number] 0395 Jul, [facility] [place] [facility] [address] [id number], [place] [address]- 3136 Jul, [facility] [place] [facility] [address] [id number] [place] [address]- 0764 Jul, [facility] [place] [facility] [address] [id number] [place] [address]- 3681 Jun, [facility] [place] [facility] [address] [id number] [place] [address]- 3045 Jun, [facility] [place] [facility] [address] [id number] [place] [address]- 5511 15 Sep, 2013 [facility] [place] [facility] [address] [id number] [place] [address]- 1520 15 Sep, 2013 [facility] [place] [facility] [address] [id number] [place] [address]- 5345 09 Sep, 2013 [facility] [place] [facility] [address] [id number] [place] [address]- 9213 09 Sep, 2013 [facility] [place] [facility] [address] [id number] [place] [address]- 1738 04 Sep, 2013 [facility] [place] [facility] [address] [id number] [place] [address]- 7957 04 Sep, 2013 [facility] [place] [facility] [address] [id number] [place] [address]- 2569 02 Sep, 2013 [facility] [place] [facility] [address] [id number] [place] [address]- 8524 02 Sep, 2013 [facility] [place] [facility] [address] [id number] [place] [address]- 8955 02 Sep, 2013 [facility] [place] [facility] [address] [id number] [place] [address]- 6704 02 Jun, 2013 [facility] [place] [facility] [address] [id number] [place] [address]- 9108 02 Sep, 2013 [facility] [place] [facility] [address] [id number] [place] [address]- 2540 Jun, 2013 [facility] [place] [facility] [address] [id number] [place] [address]- 2543 Jun, 2013 [facility] [place] [facility] [address] [id number] [place] [address]- 5298 Jun, 2013 [facility] [place] [facility] [address] [id number] [place] [address]- 1027 May, [facility] [place] [facility] [address] [id number] [place] [address]- 1125 May, [facility] [place] [facility] [address] [id number] [place] [address]- 5839 Apr, [facility] [place] [facility] [address] [id number] [place] [address]- 3959 Apr, [facility] [place] [facility] [address] [id number] [place] [address]- 9707 Apr, [facility] [place] [facility] [address] [id number] [place] [address]- 6624 Apr, [facility] [place] [facility] [address] [id number] [place] [address]- 0388 Apr, [facility] [place] [facility] [address] [id number] [place] [address]- 8864 Apr, [facility] [place] [facility] [address] [id number] [place] [address]- 5589 Apr, [facility] [place] [facility] [address] [id number] [place] [address]- 8997 Apr, [facility] [place] [facility] [address] [id number] [place] [address]- 1159 Apr, [facility] [place] [facility] [address] [id number] [place] [address]- 6248 Apr, [facility] [place] [facility] [address] [id number] [place] [address]- 6135 Apr, [facility] [place] [facility] [address] [id number] [place] [address]- 7004 Apr, [facility] [place] [facility] [address] [id number] [place] [address]- 1705 Apr, [facility] [place] [facility] [address] [id number] [place] [address]- 4922 Apr, [facility] [place] [facility] [address] [id number] [place] [address]- 1582 Apr, [facility] [place] [facility] [address] [id number] [place] [address]- 7128 Apr, [facility] [place] [facility] [address] [id number] [place] [address]- 4109 Apr, [facility] [place] [facility] [address] [id number] [place] [address]- 2671 Apr, [facility] [place] [facility] [address] [id number] [place] [address]- 3459 Apr, [facility] [place] [facility] [address] [id number] [place] [address]- 8681 Apr, [facility] [place] [facility] [address] [id number] [place] [address]- 1530 Mar, [facility] [place] [facility] [address] [id number] [place] [address]- 3872 Mar, [facility] [place] [facility] [address] [id number] [place] [address]- 9379 February, [facility] [place] [facility] [address] [id number] [place] [address]- 1439 February, [facility] [place] [facility] [address] [id number] [place] [address]- 5172 Jan, [facility] [place] [facility] [address] [id number] [place] [address]- 7463 Jan, [facility] [place] [facility] [address] [id number] [place] [address]- 8008 Jan, [facility] [place] [facility] [address] [id number] [place] [address]- 4516 Jan, [facility] [place] [facility] [address] [id number] [place] [address]- 1179 Dec, [facility] [place] [facility] [address] [id number] [place] [address]- 0758 Dec, [facility] [place] [facility] [address] [id number] [place] [address]- 3007 Oct, [facility] [place] [facility] [address] [id number] [place] [address]- 6561 Oct, [facility] [place] [facility] [address] [id number] [place] [address]- 1142 Oct, [facility] [place] [facility] [address] [id number] [place] [address]- 4026 Oct, [facility] [place] [facility] [address] [id number] [place] [address]- 0873 Aug, [facility] [place] [facility] [address] [id number] [place] [address]- 4646 Aug, [facility] [place] [facility] [address] [id number] [place] [address]- 3568 Aug, [facility] [place] [facility] [address] [id number] [place] [address]- 9984 Aug, [facility] [place] [facility] [address] [id number] [place] [address]- 7732 Jul, [facility] [place] [facility] [address] [id number] [place] [address]- 3756 Jul, [facility] [place] [facility] [address] [id number] [place] [address]- 6694 Jul, [facility] [place] [facility] [address] [id number] [place] [address]- 4599 Jun, [facility] [place] [facility] [address] [id number] [place] [address]- 8673 May, [facility] [place] [facility] [address] [id number] [place] [address]- 2543 Apr, [facility] [place] [facility] [address] [id number] [place] [address]- 6626 Apr, [facility] [place] [facility] [address] [id number] [place] [address]- 2546 Apr, [facility] [place] [facility] [address] [id number] [place] [address]- 6119 Apr, [facility] [address] [id number] [place] [address]- 6517 Mar, [facility] [place] [facility] [address] [id number] [place] [address]- 3546 Mar, [facility] [place] [facility] [address] [id number] [place] [address]- 6460 Mar, [facility] [place] [facility] [address] [id number] [place] [address]- 1271 Mar, [facility] [place] [facility] [address] [id number] [place] [address]- 9224 February, [facility] [place] [facility] [address] [id number] [place] [address]- 5233 February, [facility] [place] [facility] [address] [id number] [place] [address]- 2135 February, [facility] [place] [facility] [address] [id number] [place] [address]- 0899 February, [facility] [place] [facility] [address] [id number] [place] [address]- 7758 February, [facility] [place] [facility] [address] [id number] [place] [address]- 6301 Jan, [facility] [place] [facility] [address] [id number] [place] [address]- 8135 Dec, [facility] [place] [facility] [address] [id number], [place] [address]- 1729 Nov, [facility] [place] [facility] [address] [id number] [place] [address]- 4521 Nov, [facility] [place] [facility] [address] [id number] [place] [address]- 9647 Nov, [facility] [place] [facility] [address] [id number] [place] [address]- 2574 Oct, [facility] [place] [facility] [address] [id number] [place] [address]- 0753 Oct, [facility] [address] [id number] [place] [address] Oct, [facility] [address] [id number] [place] [address] Oct, [facility] [address] [id number] [place] [address] Oct, [facility] [address] [id number] [place] [address] Oct, [facility] [address] [id number] [place] [address] Sep, [facility] [address] [id number] [place] [address] Sep, [facility] [address] [id number] [place] [address] Sep, [facility] [address] [id number] [place] [address] Sep, [facility] [address] [id number] [place] [address] Aug, [facility] [address] [facility] [id number] [place] [address] Aug, [facility] [address] [id number] [place] [address] Aug, [facility] [address] [id number] [place] [address] Aug, [facility] [place] [facility] [address] [id number] [place] [address] Aug, [facility] [place] [facility] [address] [id number] [place] [address] Aug, [facility] [address] [id number] [place] [address] Jul, [facility] [place] [facility] [address] [id number] [place] [address] Jul, [facility] [place] [facility] [address] [id number] [place] [address] Jul, [facility] [place] [facility] [address] [id number] [place] [address] Jul, [facility] [place] [facility] [address] [id number] [place] [address] Jul, [facility] [place] [facility] [address] [id number] [place] [address] Jul, [facility] [place] [facility] [address] [id number] [place] [address] Jul, [facility] [place] [facility] [address] [id number] [place] [address] Jul, [facility] [place] [facility] [address] [id number] [place] [address] Jul, [facility] [place] [facility] [address] [id number] [place] [address] Jul, [facility] [place] [facility] [address] [id number] [place] [address] 26 Jun, 2012 [facility] [place] [facility] [address] [id number] [place] [address]- [address] 14 Jun, 2012 [facility] [place] [facility] [address] [id number], [place] [address] 12 Jun, 2012 [facility] [place] [facility] [address] [id number] [place] [address] May, [facility] [place] [facility] [address] [id number] [place] [address] May, [facility] [place] [facility] [address] [id number], [place] [address] May, [facility] [place] [facility] [address] [id number], [place] [address] May, [facility] [place] [facility] [address] [id number] [place] [address] Apr, [facility] [place] [facility] [address] [id number] [place] [address] Apr, [facility] [place] [facility] [address] [id number] [place] [address] Apr, [facility] [place] [facility] [address] [id number] [place] [address] Apr, [facility] [place] [facility] [address] [id number] [place] [address] Mar, [facility] [place] [facility] [address] [id number] [place] [address] Mar, [facility] [place] [facility] [address] [id number] [place] [address] Mar, [facility] [place] [facility] [address] [address] [id number] [place] [address] February, [facility] [place] [facility] [address] [id number] [place] [address] February, [facility] [place] [facility] [address] [id number] [place] [address] Jan, [facility] [place] [facility] [address] [id number] [place] [address] Jan, [facility] [place] [facility] [address] [id number] [place] [address] Jan, [facility] [place] [facility] [address] [id number] [place] [address] 29 Dec, 2011 [facility] [place] [facility] [address] [id number] [place] [address] Dec, [facility] [place] [facility] [address] [id number] [place] [address] Dec, [facility] [place] [facility] [address] [id number] [place] [address] Dec, [facility] [place] [facility] [address] [id number] [place] [address] 29 Nov, 2011 [facility] [place] [facility] [address] [id number] [place] [address] Nov, [facility] [place] [facility] [address] [id number] [place] [address] Nov, [facility] [place] [facility] [address] [id number] [place] [address] 16 Nov, 2011 [facility] [place] [facility] [address] [id number] [place] [address] Nov, [facility] [place] [facility] [address] [id number] [place] [address] Nov, [facility] [place] [facility] [address] [id number] [place] [address] Nov, [facility] [place] [facility] [address] [id number] [place] [address] Oct, [facility] [place] [facility] [address] [id number] [place] [address] Oct, [facility] [place] [facility] [address] [id number] [place] [address] Oct, [facility] [place] [facility] [address] [id number] [place] [address] Oct, [facility] [place] [facility] [address] [id number] [place] [address] Oct, [facility] [place] [facility] [address] [id number] [place] [address] Oct, [facility] [place] [facility] [address] [id number] [place] [address] Oct, [facility] [place] [facility] [address] [id number], [place] [address] Oct, [facility] [place] [facility] [address] [id number] [place] [address] Sep, [facility] [place] [facility] [address] [id number] [place] [address] Sep, [facility] [place] [facility] [address] [id number] [place] [address] Sep, [facility] [place] [facility] [address] [id number] [place] [address] Sep, [facility] [place] [facility] [address] [id number] [place] [address] Aug, [facility] [place] [facility] [address] [id number] [place] [address] Aug, [facility] [place] [facility] [address] [id number] [place] [address] Aug, [facility] [place] [facility] [address] [id number] [place] [address] Jul, [facility] [place] [facility] [address] [id number] [place] [address] Jul, [facility] [place] [facility] [address] [id number] [place] [address] Jul, [facility] [place] [facility] [address] [id number], [place] [address] Oct, [facility] [place] [facility] [address] [id number], [place] [address] Aug, [facility] [place] [facility] [address] [id number] [place] [address] Aug, [facility] [place] [facility] [address] [id number] [place] [address] 30 Sep, 2009 [facility] [place] [facility] [address] [id number] [place] [address] Sep, [facility] [place] [facility] [address] [facility] [id number] [place] [address] Sep, [facility] [address] [facility] [id number] [place] [address] Jan, IMMUNIZATIONS No Known Immunizations SOCIAL HISTORY Never Assessed REASON FOR VISIT Refill request PLAN OF CARE VITAL SIGNS MEDICATIONS Unknown [...]
[2018-08-05] MEDS ORDERED: LACTATED RINGERS 1,000 ML IV STA (07:52)
--- OUTSIDE RECORDS SUMMARY | 2018-08-05 07:52 | XMS REPORT ---
Author Author GAMAL CLARK Organization [facility] Address [address] [place] [address] Care Team Providers Care Emt Basic Name Role Phone GAMAL CLARK Unavailable PROBLEMS Type Condition ICD9-CM Code [id number] Code Onset Dates Condition Status SNOMED Code Problem Rectal bleed K62.5 Active 65343224 Problem Dry eyes H04.123 Active 800380179 Problem Body mass index (BMI) of 40.0-44.9 in adult Z68.41 Active 179921118 Problem Sleep apnea in adult G47.33 Active 40609612 Problem Anal fissure K60.2 Active 45126709 Problem Chronic fatigue R53.82 Active 42065638 Problem Hypertension I10 Active 70052027 ALLERGIES No Information ENCOUNTERS Encounter Location Date Diagnosis [place] [id number] [place] [address] 46110- 1361 Jun, [place] [address] 21351- 9898 May, Hypertension I10 [place] [id number] [place] [address] 50063- 4944 May, Generalized anxiety disorder 300.02 [facility] [id number] [place] [address] 84137- 7962 Apr, Sleep apnea in adult G47.33 ; Hypertension I10 and Dry eyes H04.123 [facility] [id number] [place] [address] 27920- 7157 Apr, [facility] [id number] [place] [address] 26985- 9668 Apr, [facility] [id number] [place] [address] 02699- 1187 Apr, Generalized anxiety disorder 300.02 [facility] [id number] [place] [address] 00615- 5010 Apr, Generalized anxiety disorder F41.1 [facility] [id number] [place] [address] 12966- 8464 Apr, Left breast mass N63.20 [facility] [id number] [place] [address] 22888- 4514 Apr, Generalized anxiety disorder F41.1 [facility] [id number] [place] [address] 76733- 6968 Mar, Generalized anxiety disorder 300.02 [facility] [address] 47710- 1161 Mar, [facility] [id number] [place] [address] 31544- 9749 Mar, Generalized anxiety disorder 300.02 [facility] [address] 67235- 1890 Mar, Acute serous otitis media of left ear, recurrence not specified H65.02 ; Dizziness R42 and BMI 40.0-44.9, adult Z68.41 [place] [id number] [place] [address] 62628- 7046 February, Hypertension I10 [place] [id number] [place] [address] 75899- 0768 February, Visit for TB skin test Z11.1 ; Encounter for physical examination related to employment Z02.1 ; Hypertension I10 ; Generalized anxiety disorder F41.1 ; BMI 40.0-44.9, adult Z68.41 and Chronic fatigue R53.82 [place] [id number] [place] [address] 92675- 1946 February, Rectal bleeding K62.5 and BMI 40.0-44.9, adult Z68.41 [place] [id number] [place] [address] 76353- 8784 Jan, BMI 40.0-44.9, adult Z68.41 and Skin irritation R23.8 [facility] [address] 17043- 5919 Jan, Generalized anxiety disorder F41.1 [facility] [address] 36535- 6912 Dec, [facility] [address] 95205- 8288 Nov, Body mass index (BMI) of 40.0-44.9 in adult Z68.41 ; Hypertension I10 and Seasonal allergic rhinitis, unspecified trigger J30.2 [facility] [address] 40224- 3889 Nov, Hypertension I10 [place] [address] 06148- 8382 Nov, Generalized anxiety disorder 300.02 [facility] [address] 03974- 5701 Nov, [facility] [address] 88149- 9250 Oct, [facility] [address] 19529- 2985 Oct, [facility] [address] 61686- 9892 Oct, Acute chest wall pain R07.89 [facility] [id number] [place] [address] 67746- 6730 Oct, [facility] [address] 87147- 8166 Sep, Left breast mass N63.20 [facility] [address] 74239- 0494 Sep, Left breast mass N63.20 [facility] [address] [place] [address]- 8634 Aug, [address]10 [facility] [id number] [place] [address] 49879- 5167 Aug, Generalized anxiety disorder 300.02 [facility] [id number] [place] [address] 60858- 8800 Jul, Generalized anxiety disorder 300.02 [facility] [address] 29472- 1026 Jul, Sleep apnea in adult G47.33 [facility] [address] 66221- 3673 Jul, Hypertension I10 ; Sleep apnea in adult G47.33 ; Body mass index (BMI) of 40.0-44.9 in adult Z68.41 ; Morbid (severe) obesity due to excess calories E66.01 and Female hirsutism L68.0 [facility] [address] 93443- 8267 Jul, Generalized anxiety disorder 300.02 [facility] [address] 88894- 6667 Jul, Generalized anxiety disorder 300.02 [facility] [id number] [place] [address] 99549 -7863 Jun, Chronic fatigue R53.82 [facility] [id number] [place] [address] 38985- 3476 Jun, Generalized anxiety disorder F41.1 [facility] [id number] [place] [address] 20497- 6021 May, Generalized anxiety disorder 300.02 [facility] [address] 52324- 2711 Apr, Generalized anxiety disorder F41.1 ; Hypertension I10 ; Hyperlipidemia E78.5 ; Female hirsutism L68.0 and Sleep apnea in adult G47.33 [facility] [address] [place] [address]- 8834 Mar, Hypertension I10 and Generalized anxiety disorder F41.1 [place] [address] 40791- 7533 Mar, [facility] [address] 36172- 8532 February, Hypertension I10 and Generalized anxiety disorder F41.1 [place] [address] 84069- 6053 February, Generalized anxiety disorder 300.02 [facility] [address] 34291 -8581 February, Pelvic pain R10.2 and Painful bladder spasm R30.1 [place] [address] 18724- 7130 Jan, Generalized anxiety disorder 300.02 [place] [address] 30485- 7962 Dec, Obesity, unspecified E66.9 ; Generalized anxiety disorder F41.1 and Hypertension I10 [place] [address] 18442- 6406 15 Nov, 2016 Generalized anxiety disorder F41.1 ; Hypertension I10 ; Depression F32.9 and Obesity, unspecified E66.9 [place] [address] 89788- 8582 Nov, Generalized anxiety disorder 300.02 [facility] [address] 77113- 1990 Oct, [place] [address] 19803- 9650 Sep, History of pneumonia Z87.01 ; Hypokalemia E87.6 ; Hypertension I10 and Encounter for immunization Z23 [place] [address] 04151- 6897 Jul, [place] [address] [address]- 7952 Apr, Hypertension I10 ; Hypercholesteremia E78.0 ; Obesity, unspecified E66.9 ; Anxiety F41.[address] [facility] [address] [place] [address] 67414- 0226 Apr, Depression F32.9 [place] [id number] [place] [address] 34524- 6347 Mar, Essential (primary) hypertension I10 [place] [id number] [address] [facility] [id number] [place] [address] 14833- 4708 Dec, [facility] [id number] [place] [address] 00595- 4589 Dec, Generalized anxiety disorder F41.[address] [facility] [id number] [place] [address] 84546- 9555 Dec, [place] [id number] [place] [address] 12831- 8447 Dec, Abdominal pain R10.9 [place] [id number] [place] [address] 50925- 2247 Dec, Left sided abdominal pain of unknown cause R10.30 [facility] [id number] [place] [address] 43590- 4249 Nov, Generalized anxiety disorder 300.02 [facility] [id number] [place] [address] 75627- 0903 Nov, Female hirsutism L68.0 ; Hypertension I10 ; Hyperlipidemia E78.5 ; Depression F32.[address] [facility] [address] [place] [address] 33292- 1708 Oct, [facility] [id number] [place] [address] 28693- 8532 Oct, [facility] [id number] [place] [address] 12523- 4069 Oct, [facility] [id number] [place] [address] 77794- 0163 Oct, [place] [id number] [place] [address] 95609- 1148 Oct, Well woman exam Z01.419 ; Encounter [...] unspecified obesity severity, unspecified obesity type E66.9 [place] [id number] [place] [address] 54974- 1589 Jun, Generalized anxiety disorder 300.02 [place] [id number] [place] [address] 50791- 6191 Jun, Chest pain 786.50 ; Hypertension 401.9 ; Hyperlipemia 272.4 and Obesity 278.00 [place] [id number] [place] [address] 55657- 1497 Apr, Generalized anxiety disorder 300.02 [facility] [id number] [place] [address] 52223- 0062 Apr, Generalized anxiety disorder 300.02 [facility] [id number] [place] [address] 11755- 4926 Apr, [facility] [id number] [place] [address] 80602- 0415 Apr, [facility] [id number] [place] [address] 04301- 2036 Apr, Abdominal pain 789.00 ; Dehydration 276.51 ; Generalized anxiety disorder 300.02 ; Other and unspecified bipolar disorders 296.89 ; Obesity, unspecified 278.00 ; Family history of hypercholesterolemia V18.19 ; Diarrhea 787.91 ; Sleep apnea in adult 327.23 and Essential hypertension 401.9 [facility] [id number] [address]- 1140 Mar, Generalized anxiety disorder 300.02 [facility] [address] 98524- 3903 February, [facility] [id number] [place] [address] 09178- 5521 Jan, [facility] [id number] [place] [address] 32087- 0625 Jan, [facility] [id number] [place] [address] 708679- 2171 Oct, [facility] [id number] [place] [address] 59167- 7014 Oct, [facility] [id number] [place] [address] 97306- 2188 Oct, [facility] [id number] [place] [address] 22279- 2866 Oct, [facility] [id number] [place] [address] 93103- 6215 Sep, [facility] [id number] [place] [address] 73577- 6225 Sep, [facility] [id number] [place] [address] 422483- 3325 Sep, [facility] [id number] [place] [address] 729002- 3528 Sep, [facility] [id number] [place] [address] 73968- 5543 Sep, [facility] [id number] [place] [address] 10969- 7766 Sep, [facility] [place] [facility] [address] [id number] [place] [address]- 1091 Sep, [facility] [place] [facility] [address] [id number] [place] [address]- 9681 Aug, [facility] [place] [facility] [address] [id number] [place] [address]- 6283 Aug, [facility] [place] [facility] [address] [id number] [place] [address]- 4957 Aug, [facility] [place] [facility] [address] [id number] [place] [address]- 3612 Aug, [facility] [place] [facility] [address] [id number] [place] 1934 Jul, [facility] [place] [facility] [address] [id number] [place] [address]- 6459 Jul, [facility] [place] [facility] [address] [id number] [place] [address]- 8813 Jul, [facility] [place] [facility] [address] [id number] [place] [address]- 7938 Jul, [facility] [place] [facility] [address] [id number] [place] [address]- 3506 Jul, [facility] [place] [facility] [address] [id number] 9770 Jul, [facility] [place] [facility] [address] [id number], [place] [address]- 8659 Jul, [facility] [place] [facility] [address] [id number] [place] [address]- 3732 Jul, [facility] [place] [facility] [address] [id number] [place] [address]- 2769 Jun, [facility] [place] [facility] [address] [id number] [place] [address]- 6719 Jun, [facility] [place] [facility] [address] [id number] [place] [address]- 1193 15 Sep, 2013 [facility] [place] [facility] [address] [id number] [place] [address]- 1878 15 Sep, 2013 [facility] [place] [facility] [address] [id number] [place] [address]- 7815 09 Sep, 2013 [facility] [place] [facility] [address] [id number] [place] [address]- 9924 09 Sep, 2013 [facility] [place] [facility] [address] [id number] [place] [address]- 4344 04 Sep, 2013 [facility] [place] [facility] [address] [id number] [place] [address]- 3443 04 Sep, 2013 [facility] [place] [facility] [address] [id number] [place] [address]- 3634 02 Sep, 2013 [facility] [place] [facility] [address] [id number] [place] [address]- 4872 02 Sep, 2013 [facility] [place] [facility] [address] [id number] [place] [address]- 5900 02 Sep, 2013 [facility] [place] [facility] [address] [id number] [place] [address]- 0178 02 Jun, 2013 [facility] [place] [facility] [address] [id number] [place] [address]- 3118 02 Sep, 2013 [facility] [place] [facility] [address] [id number] [place] [address]- 2548 Jun, 2013 [facility] [place] [facility] [address] [id number] [place] [address]- 2549 Jun, 2013 [facility] [place] [facility] [address] [id number] [place] [address]- 2256 Jun, 2013 [facility] [place] [facility] [address] [id number] [place] [address]- 6931 May, [facility] [place] [facility] [address] [id number] [place] [address]- 3638 May, [facility] [place] [facility] [address] [id number] [place] [address]- 2331 Apr, [facility] [place] [facility] [address] [id number] [place] [address]- 3397 Apr, [facility] [place] [facility] [address] [id number] [place] [address]- 5265 Apr, [facility] [place] [facility] [address] [id number] [place] [address]- 7151 Apr, [facility] [place] [facility] [address] [id number] [place] [address]- 9643 Apr, [facility] [place] [facility] [address] [id number] [place] [address]- 1631 Apr, [facility] [place] [facility] [address] [id number] [place] [address]- 0965 Apr, [facility] [place] [facility] [address] [id number] [place] [address]- 0023 Apr, [facility] [place] [facility] [address] [id number] [place] [address]- 8277 Apr, [facility] [place] [facility] [address] [id number] [place] [address]- 3314 Apr, [facility] [place] [facility] [address] [id number] [place] [address]- 8027 Apr, [facility] [place] [facility] [address] [id number] [place] [address]- 8156 Apr, [facility] [place] [facility] [address] [id number] [place] [address]- 6845 Apr, [facility] [place] [facility] [address] [id number] [place] [address]- 5854 Apr, [facility] [place] [facility] [address] [id number] [place] [address]- 0223 Apr, [facility] [place] [facility] [address] [id number] [place] [address]- 6377 Apr, [facility] [place] [facility] [address] [id number] [place] [address]- 2993 Apr, [facility] [place] [facility] [address] [id number] [place] [address]- 1842 Apr, [facility] [place] [facility] [address] [id number] [place] [address]- 7317 Apr, [facility] [place] [facility] [address] [id number] [place] [address]- 0062 Apr, [facility] [place] [facility] [address] [id number] [place] [address]- 7687 Mar, [facility] [place] [facility] [address] [id number] [place] [address]- 8205 Mar, [facility] [place] [facility] [address] [id number] [place] [address]- 7978 February, [facility] [place] [facility] [address] [id number] [place] [address]- 2924 February, [facility] [place] [facility] [address] [id number] [place] [address]- 4095 Jan, [facility] [place] [facility] [address] [id number] [place] [address]- 2653 Jan, [facility] [place] [facility] [address] [id number] [place] [address]- 5614 Jan, [facility] [place] [facility] [address] [id number] [place] [address]- 6571 Jan, [facility] [place] [facility] [address] [id number] [place] [address]- 9031 Dec, [facility] [place] [facility] [address] [id number] [place] [address]- 4278 Dec, [facility] [place] [facility] [address] [id number] [place] [address]- 8356 Oct, [facility] [place] [facility] [address] [id number] [place] [address]- 6824 Oct, [facility] [place] [facility] [address] [id number] [place] [address]- 2459 Oct, [facility] [place] [facility] [address] [id number] [place] [address]- 1646 Oct, [facility] [place] [facility] [address] [id number] [place] [address]- 0171 Aug, [facility] [place] [facility] [address] [id number] [place] [address]- 8678 Aug, [facility] [place] [facility] [address] [id number] [place] [address]- 6927 Aug, [facility] [place] [facility] [address] [id number] [place] [address]- 3391 Aug, [facility] [place] [facility] [address] [id number] [place] [address]- 5196 Jul, [facility] [place] [facility] [address] [id number] [place] [address]- 3864 Jul, [facility] [place] [facility] [address] [id number] [place] [address]- 3535 Jul, [facility] [place] [facility] [address] [id number] [place] [address]- 2628 Jun, [facility] [place] [facility] [address] [id number] [place] [address]- 1632 May, [facility] [place] [facility] [address] [id number] [place] [address]- 2543 Apr, [facility] [place] [facility] [address] [id number] [place] [address]- 0146 Apr, [facility] [place] [facility] [address] [id number] [place] [address]- 2546 Apr, [facility] [place] [facility] [address] [id number] [place] [address]- 7458 Apr, [facility] [address] [id number] [place] [address]- 7165 Mar, [facility] [place] [facility] [address] [id number] [place] [address]- 2344 Mar, [facility] [place] [facility] [address] [id number] [place] [address]- 9861 Mar, [facility] [place] [facility] [address] [id number] [place] [address]- 1487 Mar, [facility] [place] [facility] [address] [id number] [place] [address]- 2999 February, [facility] [place] [facility] [address] [id number] [place] [address]- 1394 February, [facility] [place] [facility] [address] [id number] [place] [address]- 1512 February, [facility] [place] [facility] [address] [id number] [place] [address]- 3399 February, [facility] [place] [facility] [address] [id number] [place] [address]- 2047 February, [facility] [place] [facility] [address] [id number] [place] [address]- 4915 Jan, [facility] [place] [facility] [address] [id number] [place] [address]- 6103 Dec, [facility] [place] [facility] [address] [id number] [address]- 5630 Nov, [facility] [place] [facility] [address] [id number] [place] [address]- 1991 Nov, [facility] [place] [facility] [address] [id number] [place] [address] Nov, [facility] [place] [facility] [address] [id number] [place] [address] Oct, [facility] [place] [facility] [address] [id number] [place] [address] Oct, [facility] [address] [id number] [place] [address] Oct, [facility] [address] [id number] [place] [address] Oct, [facility] [address] [id number] [place] [address] Oct, [facility] [address] [id number] [place] [address] Oct, [facility] [address] [id number] [place] [address] Sep, [facility] [address] [id number] [place] [address] Sep, [facility] [address] [id number] [place] [address] Sep, [facility] [address] [id number] [place] [address] Sep, [facility] [address] [id number] [place] [address] Aug, [facility] [address] [facility] [id number] [place] [address] Aug, [facility] [address] [id number] [place] [address] Aug, [facility] [address] [id number] [place] [address] Aug, [facility] [place] [facility] [address] [id number] [place] [address] Aug, [facility] [place] [facility] [address] [id number] [place] [address] Aug, [facility] [address] [id number] [place] [address] Jul, [facility] [place] [facility] [address] [id number] [place] [address] Jul, [facility] [place] [facility] [address] [id number] [place] [address] Jul, [facility] [place] [facility] [address] [id number] [place] [address] Jul, [facility] [place] [facility] [address] [id number] [place] [address] Jul, [facility] [place] [facility] [address] [id number] [place] [address] Jul, [facility] [place] [facility] [address] [id number] [place] [address] Jul, [facility] [place] [facility] [address] [id number] [place] [address] Jul, [facility] [place] [facility] [address] [id number] [place] [address] Jul, [facility] [place] [facility] [address] [id number] [place] [address] Jul, [facility] [place] [facility] [address] [id number] [place] [address] 26 Jun, 2012 [facility] [place] [facility] [address] [id number] [place] [address] 14 Jun, 2012 [facility] [place] [facility] [address] [id number], [place] [address] 12 Jun, 2012 [facility] [place] [facility] [address] [id number] [place] [address] May, [facility] [place] [facility] [address] [id number] [place] [address] May, [facility] [place] [facility] [address] [id number], [place] [address] May, [facility] [place] [facility] [address] [id number], [place] [address] May, [facility] [place] [facility] [address] [id number] [place] [address] Apr, [facility] [place] [facility] [address] [id number] [place] [address] Apr, [facility] [place] [facility] [address] [id number] [place] [address] Apr, [facility] [place] [facility] [address] [id number] [place] [address] Apr, [facility] [place] [facility] [address] [id number] [place] [address] Mar, [facility] [place] [facility] [address] [id number] [place] [address] Mar, [facility] [place] [facility] [address] [id number] [place] [address] Mar, [facility] [place] [facility] [address] [id number] [place] [address] February, [facility] [place] [facility] [address] [id number] [place] [id number] February, [facility] [place] [facility] [address] [id number] [place] [address] Jan, [facility] [place] [facility] [address] [id number] [place] [address] Jan, [facility] [place] [facility] [address] [id number] [place] [address] Jan, [facility] [place] [facility] [address] [id number] [place] [address] 29 Dec, 2011 [facility] [place] [facility] [address] [id number] [place] [address] Dec, [facility] [place] [facility] [address] [id number] [place] [address] Dec, [facility] [place] [facility] [address] [id number] [place] [address] Dec, [facility] [place] [facility] [address] [id number] [place] [address] 29 Nov, 2011 [facility] [place] [facility] [address] [id number] [place] [address] Nov, [facility] [place] [facility] [address] [id number] [place] [address] Nov, [facility] [place] [facility] [address] [id number] [place] [address] 16 Nov, 2011 [facility] [place] [facility] [address] [id number] [place] [address] Nov, [facility] [place] [facility] [address] [id number] [place] [address] Nov, [facility] [place] [facility] [address] [id number] [place] [address] Nov, [facility] [place] [facility] [address] [id number] [place] [address] Oct, [facility] [place] [facility] [address] [id number] [place] [address] Oct, [facility] [place] [facility] [address] [id number] [place] [address] Oct, [facility] [place] [facility] [address] [id number] [place] [address] Oct, [facility] [place] [facility] [address] [id number] [place] [address] Oct, [facility] [place] [facility] [address] [id number] [place] [address] Oct, [facility] [place] [facility] [address] [id number] [place] [address] Oct, [facility] [place] [facility] [address] [id number], [place] [address] Oct, [facility] [place] [facility] [address] [id number] [place] [address] Sep, [facility] [place] [facility] [address] [id number] [place] [address] Sep, [facility] [place] [facility] [address] [id number] [place] [address] Sep, [facility] [place] [facility] [address] [id number] [place] [address] Sep, [facility] [place] [facility] [address] [id number] [place] [address] Aug, [facility] [place] [facility] [address] [id number] [place] [address] Aug, [facility] [place] [facility] [address] [id number] [place] [address] Aug, [facility] [place] [facility] [address] [id number] [place] [address] Jul, [facility] [place] [facility] [address] [id number] [place] [address] Jul, [facility] [place] [facility] [address] [id number] [place] [address] Jul, [facility] [place] [facility] [address] [id number], [place] [address] Oct, [facility] [place] [facility] [address] [id number], [place] [address] Aug, [facility] [place] [facility] [address] [id number] [place] [address] Aug, [facility] [place] [facility] [address] [id number] [place] [address] 30 Sep, 2009 [facility] [place] [facility] [address] [id number] [place] [address] Sep, [facility] [place] [facility] [address] [facility] [id number] [place] [id number] [address] Sep, [facility] [address] [facility] [id number] [place] [address] Jan, IMMUNIZATIONS No Known Immunizations SOCIAL HISTORY Never Assessed REASON FOR VISIT Requests return call PLAN OF CARE VITAL SIGNS MEDICATIONS Unknown Medications RESULTS Name Result Date Reference Range Mammogram Dx, Bilateral 2018-04-30 PROCEDURES No Known procedures INSTRUCTIONS MEDICATIONS ADMINISTERED [...]
--- OUTSIDE RECORDS SUMMARY | 2018-08-05 07:53 | XMS REPORT ---
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 Name Role Phone OSVALDO RODRIGUEZ Unavailable PROBLEMS Type Condition ICD9-CM Code MFR42-NX Code Onset Dates Condition Status SNOMED Code Problem Rectal bleed K62.5 Active 89444965 Problem Dry eyes H04.123 Active 981476692 Problem Body mass index (BMI) of 40.0-44.9 in adult Z68.41 Active 541714714 Problem Sleep apnea in adult G47.33 Active 02970879 Problem Anal fissure K60.2 Active 54743923 Problem Chronic fatigue R53.82 Active 60486623 Problem Hypertension I10 Active [id number] ALLERGIES No Information ENCOUNTERS Encounter Location Date Diagnosis [place] [facility] [id number] [place] [address] 49003- 3547 Jun, [facility] [id number] [place] [address] 11528- 9385 May, Hypertension I10 [facility] [id number] [place] [address] 71300- 0123 May, Generalized anxiety disorder 300.02 [facility] [id number] [place] [address] 71015- 3590 Apr, Sleep apnea in adult G47.33 ; Hypertension I10 and Dry eyes H04.123 [facility] [address] 15421- 9037 Apr, [facility] [id number] [place] [address] 78730- 7930 Apr, [facility] [address] 48477- 0416 Apr, Generalized anxiety disorder 300.02 [facility] [id number] [place] [address] 60473- 6520 Apr, Generalized anxiety disorder F41.1 [facility] [id number] [place] [address] 84371- 0192 Apr, Left breast mass N63.20 [facility] [facility] [address] 05057- 6230 Apr, Generalized anxiety disorder F41.1 [facility] [id number] [place] [address] 96739- 9413 Mar, Generalized anxiety disorder 300.02 [place] [id number] [place] [address] 04301- 2508 Mar, [facility] [id number] [place] [address] 25304- 8620 Mar, Generalized anxiety disorder 300.02 [facility] [id number] [place] [address] 78526- 7825 Mar, Acute serous otitis media of left ear, recurrence not specified H65.02 ; Dizziness R42 and BMI 40.0-44.9, adult Z68.41 [place] [facility] [id number] [place] [address] 75462- 2857 February, Hypertension I10 [facility] [id number] [place] [address] 45194- 4093 February, Visit for TB skin test Z11.1 ; Encounter for physical examination related to employment Z02.1 ; Hypertension I10 ; Generalized anxiety disorder F41.1 ; BMI 40.0-44.9, adult Z68.41 and Chronic fatigue R53.82 [place] [facility] [id number] [place] [address] 79726- 5754 February, Rectal bleeding K62.5 and BMI 40.0-44.9, adult Z68.41 [facility] [facility] [id number] [place] [address] 12490- 0601 Jan, BMI 40.0-44.9, adult Z68.41 and Skin irritation R23.8 [facility] [address] 17011- 5234 Jan, Generalized anxiety disorder F41.1 [facility] [address] 58327- 7509 Dec, [facility] [address] 30364- 1404 Nov, Body mass index (BMI) of 40.0-44.9 in adult Z68.41 ; Hypertension I10 and Seasonal allergic rhinitis, unspecified trigger J30.2 [place] [address] 05190- 5179 Nov, Hypertension I10 [facility] [facility] [address] 74595- 6049 Nov, Generalized anxiety disorder 300.02 [facility] [id number] [place] [address] 71766- 4509 Nov, [facility] [address] 37710- 2149 Oct, [facility] [id number] [place] [address] 75336- 7143 Oct, [facility] [address] 93943- 1063 Oct, Acute chest wall pain R07.89 [facility] [id number] [place] [address] 12070- 0734 Oct, [facility] [address] 66525- 0856 Sep, Left breast mass N63.20 [facility] [id number] [place] [address] 60204- 2989 Sep, Left breast mass N63.20 [facility] [address] [place] [address] 7769 Aug, Hypertension I10 [facility] [id number] [place] [address] 46419- 0185 Aug, Generalized anxiety disorder 300.02 [facility] [id number] [place] [address] 63035- 7437 Jul, Generalized anxiety disorder 300.02 [facility] [id number] [place] [address] 83388- 3997 Jul, Sleep apnea in adult G47.33 [facility] [id number] [place] [address] 36649- 5788 Jul, Hypertension I10 ; Sleep apnea in adult G47.33 ; Body mass index (BMI) of 40.0-44.9 in adult Z68.41 ; Morbid (severe) obesity due to excess calories E66.01 and Female hirsutism L68.0 [facility] [id number] [place] [address] 29758- 2985 Jul, Generalized anxiety disorder 300.02 [facility] [id number] [place] [address] 94887- 7123 Jul, Generalized anxiety disorder 300.02 [facility] [address] [address] Jun, Chronic fatigue R53.82 [facility] [id number] [place] [address] 84186- 9509 Jun, Generalized anxiety disorder F41.1 [facility] [id number] [place] [address] 96731- 3448 May, Generalized anxiety disorder 300.02 [facility] [id number] [place] [address] 94734- 3461 Apr, Generalized anxiety disorder F41.1 ; Hypertension I10 ; Hyperlipidemia E78.5 ; Female hirsutism L68.0 and Sleep apnea in adult G47.33 [facility] [id number] [place] [address]- 1622 Mar, Hypertension I10 and Generalized anxiety disorder F41.1 [facility] [address] 00375- 7619 Mar, [facility] [address] 72810- 8736 February, Hypertension I10 and Generalized anxiety disorder F41.1 [facility] [address] 08785- 7251 February, Generalized anxiety disorder 300.02 [facility] [address] 33965 -6137 February, Pelvic pain R10.2 and Painful bladder spasm R30.1 [place] [address] 46023- 4182 Jan, Generalized anxiety disorder 300.02 [place] [facility] [address] 31748- 8380 Dec, Obesity, unspecified E66.9 ; Generalized anxiety disorder F41.1 and Hypertension I10 [place] [address] 71320- 7783 15 Nov, 2016 Generalized anxiety disorder F41.1 ; Hypertension I10 ; Depression F32.9 and Obesity, unspecified E66.9 [place] [id number] [place] [address] 77832- 4079 Nov, Generalized anxiety disorder 300.02 [facility] [address] 33653- 4537 Oct, [facility] [facility] [address] 94867- 2031 Sep, History of pneumonia Z87.01 ; Hypokalemia E87.6 ; Hypertension I10 and Encounter for immunization Z23 [place] [address] 06455- 8594 Jul, [facility] [id number] [place] [address] 79231- 5008 Apr, Hypertension I10 ; Hypercholesteremia E78.0 ; Obesity, unspecified E66.9 ; Anxiety F41.9 and Lumbago M54.5 [facility] [id number] [place] [address] 77389- 6985 Apr, Depression F32.9 [facility] [id number] [place] [address] 43576- 2581 Mar, Essential (primary) hypertension I10 [place] [id number] [address] Jan [facility] [id number] [place] [address] 94241- 3890 Dec, [facility] [id number] [place] [address] 62808- 5161 Dec, Generalized anxiety disorder F41.1 and Hypertension I10 [facility] [id number] [place] [address] 88732- 9682 Dec, [facility] [id number] [place] [address] 11424- 8691 Dec, Abdominal pain R10.9 [facility] [id number] [place] [address] 93998- 5988 Dec, Left sided abdominal pain of unknown cause R10.30 [facility] [id number] [place] [address] 80724- 7039 Nov, Generalized anxiety disorder 300.02 [facility] [id number] [place] [address] 49784- 3119 Nov, Female hirsutism L68.0 ; Hypertension I10 ; Hyperlipidemia E78.5 ; Depression F32.9 and Anxiety F41.9 [facility] [id number] [place] [address] 34109- 5232 Oct, [place] [id number] [place] [address] 70197- 2695 Oct, [facility] [id number] [place] [address] 55973- 0212 Oct, [facility] [id number] [place] [address] 62333- 9189 Oct, [facility] [id number] [place] [address] 63395- 0176 Oct, Well woman exam Z01.419 ; Encounter [...] unspecified obesity severity, unspecified obesity type E66.9 [facility] [id number] [place] [address] 12556- 9112 Jun, Generalized anxiety disorder 300.02 [place] [id number] [place] [address] 50604- 2156 Jun, Chest pain 786.50 ; Hypertension 401.9 ; Hyperlipemia 272.4 and Obesity 278.00 [place] [id number] [place] [address] 67164- 3127 Apr, Generalized anxiety disorder 300.02 [facility] [id number] [place] [address] 28557- 3056 Apr, Generalized anxiety disorder 300.02 [facility] [id number] [place] [address] 39610- 9491 Apr, [facility] [id number] [place] [address] 56605- 6861 Apr, [facility] [id number] [place] [address] 23350- 3878 Apr, Abdominal pain 789.00 ; Dehydration 276.51 ; Generalized anxiety disorder 300.02 ; Other and unspecified bipolar disorders 296.89 ; Obesity, unspecified 278.00 ; Family history of hypercholesterolemia V18.19 ; Diarrhea 787.91 ; Sleep apnea in adult 327.23 and Essential hypertension 401.9 [facility] [address] [address]- 1642 Mar, Generalized anxiety disorder 300.02 [facility] [id number] [place] [address] 70068- 9320 February, [facility] [id number] [place] [address] 98798- 5838 Jan, [facility] [id number] [place] [address] 86265- 6515 Jan, [facility] [id number] [place] [address] 71094- 5008 Oct, [facility] [id number] [place] [address] 22624- 7518 Oct, [facility] [id number] [place] [address] 34927- 3836 Oct, [facility] [id number] [place] [address] 07725- 6378 Oct, [facility] [address] [address]- 8277 Sep, [facility] [id number] [address]- 0023 Sep, [facility] [address] [address]- 5086 Sep, [facility] [id number] [place] [address] 14138- 2859 Sep, [facility] [address]- 1985 Sep, [facility] [id number] [place] [address] 57194- 2563 Sep, [facility] [place] [facility] [address] [id number] [place] [address]- 5804 Sep, [facility] [place] [facility] [address] [id number] [place] 6960 Aug, [facility] [place] [facility] [address] [id number] [place] [address]- 1032 Aug, [facility] [place] [facility] [address] [id number] [place] [address]- 7897 Aug, [facility] [place] [facility] [address] [id number] [place] 8836 Aug, [facility] [place] [facility] [address] [id number] [place] [address]- 1790 Jul, [facility] [place] [facility] [address] [facility] [id number] [place] [address]- 2541 Jul, [facility] [place] [facility] [address] [id number] [place] [address]- 4479 Jul, [facility] [place] [facility] [address] [facility] [id number] [place] [address]- 5007 Jul, [facility] [place] [facility] [address] [facility] [id number] [place] [address]- 5677 Jul, [facility] [place] [facility] [address] [id number] [place] [address]- 4403 Jul, [facility] [place] [facility] [address] [id number] [place] [address]- 1511 Jul, [facility] [place] [facility] [address] [id number] [place] [address]- 8133 Jul, [facility] [place] [facility] [address] [facility] [id number] [place] [address]- 9574 Jun, [facility] [place] [facility] [address] [facility] [id number] [place] [address]- 8738 16 Jun, 2014 [facility] [place] [facility] [address] [id number] [place] [address]- 1833 15 Sep, 2013 [facility] [place] [facility] [address] [id number] [place] [address]- 9046 15 Sep, 2013 [facility] [place] [facility] [address] [id number] [place] [address]- 4126 09 Sep, 2013 [facility] [place] [facility] [address] [id number] [place] [address]- 5828 09 Sep, 2013 [facility] [place] [facility] [address] [id number] [place] [address]- 0200 04 Sep, 2013 [facility] [place] [facility] [address] [id number] [place] [address]- 0099 04 Sep, 2013 [facility] [place] [facility] [address] [id number] [place] [address]- 2311 02 Sep, 2013 [facility] [place] [facility] [address] [id number] [place] [address]- 3976 02 Sep, 2013 [facility] [place] [facility] [address] [id number] [place] [address]- 5043 02 Sep, 2013 [facility] [place] [facility] [address] [id number] [place] [address]- 2548 02 Sep, 2013 [facility] [place] [facility] [address] [id number] [place] [address]- 0248 02 Sep, 2013 [facility] [place] [facility] [address] [id number] [place] [address]- 1555 Jun, 2013 [facility] [place] [facility] [address] [id number] [place] [address] 2547 Sep, 2013 [facility] [place] [facility] [address] [id number] [place] [address]- 2544 Jun, 2013 [facility] [place] [facility] [address] [id number] [place] [address]- 7015 May, 2013 [facility] [place] [facility] [address] [id number] [place] [address]- 5200 May, [facility] [place] [facility] [address] [id number] [place] [address]- 5077 Apr, [facility] [place] [facility] [address] [id number] [place] [address]- 7461 Apr, [facility] [place] [facility] [address] [id number] [place] [address]- 0193 Apr, [facility] [place] [facility] [address] [id number] [place] [address]- 7021 Apr, [facility] [place] [facility] [address] [id number] [place] [address]- 3729 Apr, [facility] [place] [facility] [address] [id number] [place] [address]- 7503 Apr, [facility] [place] [facility] [address] [id number] [place] [address]- 2045 Apr, [facility] [place] [facility] [address] [id number] [place] [address]- 7920 Apr, [facility] [place] [facility] [address] [id number] [place] [address]- 5897 Apr, [facility] [place] [facility] [address] [id number] [place] [address]- 0637 Apr, [facility] [place] [facility] [address] [id number] [place] [address]- 0926 Apr, [facility] [place] [facility] [address] [id number] [place] [address]- 4676 Apr, [facility] [place] [facility] [address] [id number] [place] [address]- 0056 Apr, [facility] [place] [facility] [address] [id number] [place] [address]- 3951 Apr, [facility] [place] [facility] [address] [id number] [place] [address]- 6910 Apr, [facility] [place] [facility] [address] [id number] [place] [address]- 1446 Apr, [facility] [place] [facility] [address] [id number] [place] 6420 Apr, [facility] [place] [facility] [address] [id number] [place] [address]- 0325 Apr, [facility] [place] [facility] [address] [id number] [place] [address]- 5988 Apr, [facility] [place] [facility] [address] [id number] [place] [address]- 6362 Apr, [facility] [place] [facility] [address] [id number] [place] [address]- 2890 Mar, [facility] [place] [facility] [address] [id number] [place] [address]- 5112 Mar, [facility] [place] [facility] [address] [id number] [place] [address]- 7617 February, [facility] [place] [facility] [address] [id number] [place] [address]- 1770 February, [facility] [place] [facility] [address] [id number] [place] [address]- 4775 Jan, [facility] [place] [facility] [address] [id number] [place] [address]- 8290 Jan, [facility] [place] [facility] [address] [id number] [place] [address]- 5877 Jan, [facility] [place] [facility] [address] [id number] [place] [address]- 1333 Jan, [facility] [place] [facility] [address] [id number] [place] [address]- 5149 Dec, [facility] [place] [facility] [address] [id number] [place] [address]- 9449 Dec, [facility] [place] [facility] [address] [id number] [place] [address]- 6795 Oct, [facility] [place] [facility] [address] [id number] [place] [address]- 1865 Oct, [facility] [place] [facility] [address] [id number] [place] [address]- 1210 Oct, [facility] [place] [facility] [address] [id number] [place] [address]- 1714 Oct, [facility] [place] [facility] [address] [id number] [place] [address]- 0997 Aug, [facility] [place] [facility] [address] [id number] [place] [address]- 8213 Aug, [facility] [place] [facility] [address] [id number] [place] [address]- 5557 Aug, [facility] [place] [facility] [address] [id number] [place] [address]- 1429 Aug, [facility] [place] [facility] [address] [id number] [place] [address]- 3656 Jul, [facility] [place] [facility] [address] [id number] [place] [address]- 1301 Jul, [facility] [place] [facility] [address] [id number] [place] [address]- 2189 Jul, [facility] [place] [facility] [address] [id number] [place] [address]- 4061 Jun, [facility] [place] [facility] [address] [id number] [place] [address]- 8562 May, [facility] [place] [facility] [address] [id number] [place] [address]- 8698 Apr, [facility] [place] [facility] [address] [id number] [place] [address]- 5684 Apr, [facility] [place] [facility] [address] [id number] [place] [address]- 6903 Apr, [facility] [place] [facility] [address] [id number] [place] [address]- 1646 Apr, [facility] [address] [id number] [place] [address]- 7652 Mar, [facility] [place] [facility] [address] [id number] [place] [address]- 1049 Mar, [facility] [place] [facility] [address] [id number] [place] [address]- 3545 Mar, [facility] [place] [facility] [address] [id number] [place] [address]- 5058 Mar, [facility] [place] [facility] [address] [id number] [place] [address]- 1819 February, [facility] [place] [facility] [address] [id number] [place] 7831 February, [facility] [place] [facility] [address] [id number] [place] [address]- 4027 February, [facility] [place] [facility] [address] [id number] [place] [address]- 4677 February, [facility] [place] [facility] [address] [id number] [place] [address]- 5462 February, [facility] [place] [facility] [address] [id number] [place] [address]- 6792 Jan, [facility] [place] [facility] [address] [id number] [place] [address]- [address] Dec, [facility] [place] [facility] [address] [id number] [place] [address] Nov, [facility] [place] [facility] [address] [id number] [place] [address] Nov, [facility] [place] [facility] [address] [id number] [place] [address] Nov, [facility] [place] [facility] [address] [id number] [place] [address] Oct, [facility] [place] [facility] [address] [id number] [place] [address] Oct, [facility] [address] [id number] [place] [address] Oct, [facility] [place] [facility] [address] [id number] [place] [address] Oct, [facility] [address] [id number] [place] [address] Oct, [facility] [place] [facility] [address] [id number] [place] [address] Oct, [facility] [address] [id number] [place] [address] Sep, [facility] [place] [facility] [address] [id number] [place] [address] Sep, [facility] [place] [facility] [address] [id number] [place] [address] Sep, [facility] [address] [id number] [place] [address] Sep, [facility] [place] [facility] [address] [id number] [place] [address] Aug, [facility] [address] [id number] [place] [address] Aug, [facility] [place] [facility] [address] [id number] [place] [address] Aug, [facility] [place] [facility] [address] [id number] [place] [address] Aug, [facility] [place] [facility] [address] [id number] [place] [address] Aug, [facility] [place] [facility] [address] [id number] [place] [address] Aug, [facility] [place] [facility] [address] [id number] [place] [address] Jul, [facility] [place] [facility] [address] [id number] [place] [address] Jul, [facility] [place] [facility] [address] [id number] [place] [address] Jul, [facility] [place] [facility] [address] [id number] [place] [address] Jul, [facility] [place] [facility] [address] [id number] [place] [address] Jul, [facility] [place] [facility] [address] [id number] [place] [address] Jul, [facility] [place] [facility] [address] [id number] [place] [address] Jul, [facility] [place] [facility] [address] [id number] [place] [address] Jul, [facility] [place] [facility] [address] [id number] [place] [address] Jul, [facility] [place] [facility] [address] [id number] [place] [address] Jul, [facility] [place] [facility] [address] [id number] [place] [address] 26 Jun, 2012 [facility] [place] [facility] [address] [id number] [place] [address] 14 Jun, 2012 [facility] [place] [facility] [address] [id number], [place] [address] 12 Jun, 2012 [facility] [place] [facility] [address] [id number] [place] [address] May, [facility] [place] [facility] [address] [id number] [place] [address]- [address] 16 May, 2012 [facility] [place] [facility] [address] [id number] [place] [address] May, [facility] [place] [facility] [address] [id number] [place] [address] May, [facility] [place] [facility] [address] [id number] [place] [address] Apr, [facility] [place] [facility] [address] [id number] [place] [address] Apr, [facility] [place] [facility] [address] [id number] [place] [address] Apr, [facility] [place] [facility] [address] [id number] [place] [address] Apr, [facility] [place] [facility] [address] [id number] [place] [address] Mar, [facility] [place] [facility] [address] [id number] [place] [address] Mar, [facility] [place] [facility] [address] [id number] [place] [address] Mar, [facility] [place] [facility] [address] [id number] [place] [address] February, [facility] [place] [facility] [address] [id number] [place] [address] February, [facility] [place] [facility] [address] [id number] [place] [address] Jan, [facility] [place] [facility] [address] [id number] [place] [address] 18 Jan, 2012 [facility] [place] [facility] [address] [id number] [place] [address] Jan, [facility] [place] [facility] [address] [id number] [place] [address] 29 Dec, 2011 [facility] [place] [facility] [address] [id number] [place] [address] Dec, [facility] [place] [facility] [address] [id number] [place] [address] Dec, [facility] [place] [facility] [address] [id number] [place] [address]- [address] Dec, [facility] [place] [facility] [address] [id number] [place] [address] Nov, [facility] [place] [facility] [address] [id number] [place] [address] Nov, [facility] [place] [facility] [address] [id number] [place] [address] Nov, [facility] [place] [facility] [address] [id number] [place] [address] 16 Nov, 2011 [facility] [place] [facility] [address] [id number] [place] [address] Nov, [facility] [place] [facility] [address] [id number] [place] [address] Nov, [facility] [place] [facility] [address] [id number] [place] [address] Nov, [facility] [place] [facility] [address] [id number] [place] [address] Oct, [facility] [place] [facility] [address] [id number] [place] [address] Oct, [facility] [place] [facility] [address] [id number] [place] [address] Oct, [facility] [place] [facility] [address] [id number] [place] [address] Oct, [facility] [place] [facility] [address] [id number] [place] [address] Oct, [facility] [place] [facility] [address] [id number] [place] [address] Oct, [facility] [place] [facility] [address] [id number] [place] [address] 25[address] Oct, [facility] [place] [facility] [address] [id number] [place] [address] 05 Oct, 2011 [facility] [place] [facility] [address] [id number] [place] [address]- [address] Sep, [facility] [place] [facility] [address] [id number] [place] [address] Sep, [facility] [place] [facility] [address] [id number] [place] [address] Sep, [facility] [place] [facility] [address] [id number] [place] [address] Sep, [facility] [place] [facility] [address] [id number] [place] [address] Aug, [facility] [place] [facility] [address] [id number] [place] [address] Aug, [facility] [place] [facility] [address] [facility] [id number] [place] [address] Aug, [facility] [place] [facility] [address] [id number] [place] [address] Jul, [facility] [place] [facility] [address] [id number] [place] [address] Jul, [facility] [place] [facility] [address] [facility] [id number] [place] [address] Jul, [facility] [place] [facility] [address] [id number] [place] [address] Oct, [facility] [place] [facility] [address] [id number], [place] [address] Aug, [facility] [place] [facility] [address] [id number] [place] [address]- [address] 16 Aug, 2010 [facility] [place] [facility] [address] [facility] [id number] [place] [address] 30 Sep, 2009 [facility] [place] [facility] [address] [facility] [id number], [place] [address] Sep, [facility] [place] [facility] [address] [facility] [id number] [place] [address] Sep, [facility] [address] [facility] [id number] [place] Jan, IMMUNIZATIONS No Known Immunizations SOCIAL HISTORY Never Assessed REASON FOR VISIT f/u PLAN OF CARE Activity Details Follow Up 2 Weeks Reason: VITAL SIGNS MEDICATIONS Unknown Medications RESULTS No Results PROCEDURES Procedure Date Ordered Result Body Site Psychotherapy, patient &/family, 45 minutes, established patient April 16, 2018 INSTRUCTIONS MEDICATIONS ADMINISTERED No Known Medications [...]
--- OUTSIDE RECORDS SUMMARY | 2018-08-05 07:53 | XMS REPORT ---
Author Author GAMAL CLARK Organization [facility] Address [address] [place] [address] Care Team Providers Care [employer] Associate Name Role Phone GAMAL CLARK Unavailable PROBLEMS Type Condition ICD9-CM Code PHF39-PD Code Onset Dates Condition Status SNOMED Code Problem Rectal bleed K62.5 Active 65375646 Problem Dry eyes H04.123 Active 537636739 Problem Body mass index (BMI) of 40.0-44.9 in adult Z68.41 Active 947127885 Problem Sleep apnea in adult G47.33 Active 68188345 Problem Anal fissure K60.2 Active 51770255 Problem Chronic fatigue R53.82 Active 99698394 Problem Hypertension I10 Active 71145851 ALLERGIES No Information ENCOUNTERS Encounter Location Date Diagnosis [place] [id number] [place] [address] 27560- 2461 Jun, [place] [address] 03918- 4693 May, Hypertension I10 [place] [id number] [place] [address] 28382- 7517 May, Generalized anxiety disorder 300.02 [facility] [id number] [place] [address] 21389- 6200 Apr, Sleep apnea in adult G47.33 ; Hypertension I10 and Dry eyes H04.123 [facility] [id number] [place] [address] 23623- 9027 Apr, [facility] [id number] [place] [address] 96246- 7179 Apr, [facility] [id number] [place] [address] 45698- 8788 Apr, Generalized anxiety disorder 300.02 [facility] [id number] [place] [address] 67731- 1856 Apr, Generalized anxiety disorder F41.1 [facility] [id number] [place] [address] 41898- 8307 Apr, Left breast mass N63.20 [facility] [id number] [place] [address] 64658- 9894 Apr, Generalized anxiety disorder F41.1 [facility] [id number] [place] [address] 15862- 2338 Mar, Generalized anxiety disorder 300.02 [facility] [address] 00452- 8139 Mar, [facility] [id number] [place] [address] 29973- 1375 Mar, Generalized anxiety disorder 300.02 [facility] [address] 11692- 1730 Mar, Acute serous otitis media of left ear, recurrence not specified H65.02 ; Dizziness R42 and BMI 40.0-44.9, adult Z68.41 [place] [id number] [place] [address] 62000- 3212 February, Hypertension I10 [place] [id number] [place] [address] 97778- 9047 February, Visit for TB skin test Z11.1 ; Encounter for physical examination related to employment Z02.1 ; Hypertension I10 ; Generalized anxiety disorder F41.1 ; BMI 40.0-44.9, adult Z68.41 and Chronic fatigue R53.82 [place] [id number] [place] [address] 90519- 2413 February, Rectal bleeding K62.5 and BMI 40.0-44.9, adult Z68.41 [place] [id number] [place] [address] 14893- 1172 Jan, BMI 40.0-44.9, adult Z68.41 and Skin irritation R23.8 [facility] [address] 68490- 7085 Jan, Generalized anxiety disorder F41.1 [facility] [address] 63575- 1785 Dec, [facility] [address] 67871- 5889 Nov, Body mass index (BMI) of 40.0-44.9 in adult Z68.41 ; Hypertension I10 and Seasonal allergic rhinitis, unspecified trigger J30.2 [facility] [address] 98795- 1977 Nov, Hypertension I10 [place] [address] 40271- 3575 Nov, Generalized anxiety disorder 300.02 [facility] [address] 00121- 3633 Nov, [facility] [address] 77273- 4111 Oct, [facility] [address] 76362- 0276 Oct, [facility] [address] 63135- 5265 Oct, Acute chest wall pain R07.89 [facility] [id number] [place] [address] 80210- 6973 Oct, [facility] [address] 90312- 1871 Sep, Left breast mass N63.20 [facility] [address] 82903- 3338 Sep, Left breast mass N63.20 [facility] [address] [place] [address]- 4649 Aug, Hypertension I10 [facility] [id number] [place] [address] 10353- 8852 Aug, Generalized anxiety disorder 300.02 [facility] [id number] [place] [address] 06948- 6082 Jul, Generalized anxiety disorder 300.02 [facility] [address] 07372- 6351 Jul, Sleep apnea in adult G47.33 [facility] [address] 95931- 8793 Jul, Hypertension I10 ; Sleep apnea in adult G47.33 ; Body mass index (BMI) of 40.0-44.9 in adult Z68.41 ; Morbid (severe) obesity due to excess calories E66.01 and Female hirsutism L68.0 [facility] [address] 47183- 4703 Jul, Generalized anxiety disorder 300.02 [facility] [address] 23201- 5784 Jul, Generalized anxiety disorder 300.02 [facility] [id number] [place] [address] 39203 -2356 Jun, Chronic fatigue R53.82 [facility] [id number] [place] [address] 19223- 2587 Jun, Generalized anxiety disorder F41.1 [facility] [id number] [place] [address] 45717- 2908 May, Generalized anxiety disorder 300.02 [facility] [address] 76088- 2286 Apr, Generalized anxiety disorder F41.1 ; Hypertension I10 ; Hyperlipidemia E78.5 ; Female hirsutism L68.0 and Sleep apnea in adult G47.33 [facility] [address] [place] [address]- 3182 Mar, Hypertension I10 and Generalized anxiety disorder F41.1 [place] [address] 64618- 1003 Mar, [facility] [address] 60807- 7484 February, Hypertension I10 and Generalized anxiety disorder F41.1 [place] [address] 44572- 1127 February, Generalized anxiety disorder 300.02 [facility] [address] 24201 -1319 February, Pelvic pain R10.2 and Painful bladder spasm R30.1 [place] [address] 44537- 7468 Jan, Generalized anxiety disorder 300.02 [place] [address] 12518- 4707 Dec, Obesity, unspecified E66.9 ; Generalized anxiety disorder F41.1 and Hypertension I10 [place] [address] 65792- 9801 15 Nov, 2016 Generalized anxiety disorder F41.1 ; Hypertension I10 ; Depression F32.9 and Obesity, unspecified E66.9 [place] [address] 43655- 4847 Nov, Generalized anxiety disorder 300.02 [facility] [address] 00943- 2924 Oct, [place] [address] 47513- 2662 Sep, History of pneumonia Z87.01 ; Hypokalemia E87.6 ; Hypertension I10 and Encounter for immunization Z23 [place] [address] 99028- 1314 Jul, [place] [address] [address]- 1335 Apr, Hypertension I10 ; Hypercholesteremia E78.0 ; Obesity, unspecified E66.9 ; Anxiety F41.9 and Lumbago M54.5 [facility] [address] [place] [address] 84611- 5504 Apr, Depression F32.9 [place] [id number] [place] [address] 18617- 8596 Mar, Essential (primary) hypertension I10 [place] [id number] [address] Jan [facility] [id number] [place] [address] 44470- 5662 Dec, [facility] [id number] [place] [address] 14804- 7446 Dec, Generalized anxiety disorder F41.1 and Hypertension I10 [facility] [id number] [place] [address] 58293- 0009 Dec, [place] [id number] [place] [address] 34747- 0850 Dec, Abdominal pain R10.9 [place] [id number] [place] [address] 18817- 8286 Dec, Left sided abdominal pain of unknown cause R10.30 [facility] [id number] [place] [address] 22354- 0907 Nov, Generalized anxiety disorder 300.02 [facility] [id number] [place] [address] 58532- 1683 Nov, Female hirsutism L68.0 ; Hypertension I10 ; Hyperlipidemia E78.5 ; Depression F32.9 and Anxiety F41.9 [facility] [address] [place] [address] 06000- 2369 Oct, [facility] [id number] [place] [address] 00384- 5576 Oct, [facility] [id number] [place] [address] 06734- 1940 Oct, [facility] [id number] [place] [address] 15969- 5530 Oct, [place] [id number] [place] [address] 37170- 4198 Oct, Well woman exam Z01.419 ; Encounter [...] unspecified obesity severity, unspecified obesity type E66.9 [place] [id number] [place] [address] 45207- 6029 Jun, Generalized anxiety disorder 300.02 [place] [id number] [place] [address] 28144- 8265 Jun, Chest pain 786.50 ; Hypertension 401.9 ; Hyperlipemia 272.4 and Obesity 278.00 [place] [id number] [place] [address] 28279- 3951 Apr, Generalized anxiety disorder 300.02 [facility] [id number] [place] [address] 30903- 9192 Apr, Generalized anxiety disorder 300.02 [facility] [id number] [place] [address] 13818- 4482 Apr, [facility] [id number] [place] [address] 75817- 6739 Apr, [facility] [id number] [place] [address] 72452- 3350 Apr, Abdominal pain 789.00 ; Dehydration 276.51 ; Generalized anxiety disorder 300.02 ; Other and unspecified bipolar disorders 296.89 ; Obesity, unspecified 278.00 ; Family history of hypercholesterolemia V18.19 ; Diarrhea 787.91 ; Sleep apnea in adult 327.23 and Essential hypertension 401.9 [facility] [id number] [address]- 3128 Mar, Generalized anxiety disorder 300.02 [facility] [address] 75738- 9326 February, [facility] [id number] [place] [address] 45544- 5986 Jan, [facility] [id number] [place] [address] 36913- 9107 Jan, [facility] [id number] [place] [address] 123276- 3727 Oct, [facility] [id number] [place] [address] 02947- 6731 Oct, [facility] [id number] [place] [address] 39425- 0274 Oct, [facility] [id number] [place] [address] 04182- 9079 Oct, [facility] [id number] [place] [address] 38631- 7045 Sep, [facility] [id number] [place] [address] 76378- 2403 Sep, [facility] [id number] [place] [address] 851214- 7921 Sep, [facility] [id number] [place] [address] 164313- 3766 Sep, [facility] [id number] [place] [address] 56052- 2791 Sep, [facility] [id number] [place] [address] 28804- 6346 Sep, [facility] [place] [facility] [address] [id number] [place] [address]- 3597 Sep, [facility] [place] [facility] [address] [id number] [place] [address]- 5100 Aug, [facility] [place] [facility] [address] [id number] [place] [address]- 7852 Aug, [facility] [place] [facility] [address] [id number] [place] [address]- 2347 Aug, [facility] [place] [facility] [address] [id number] [place] [address]- 1715 Aug, [facility] [place] [facility] [address] [id number] [place] 2405 Jul, [facility] [place] [facility] [address] [id number] [place] [address]- 9935 Jul, [facility] [place] [facility] [address] [id number] [place] [address]- 5217 Jul, [facility] [place] [facility] [address] [id number] [place] [address]- 0630 Jul, [facility] [place] [facility] [address] [id number] [place] [address]- 3377 Jul, [facility] [place] [facility] [address] [id number] [place] 2043 Jul, [facility] [place] [facility] [address] [id number] [place] [address]- 9113 Jul, [facility] [place] [facility] [address] [id number] [place] [address]- 0621 Jul, [facility] [place] [facility] [address] [id number] [place] [address]- 4046 Jun, [facility] [place] [facility] [address] [id number] [place] [address]- 7821 Jun, [facility] [place] [facility] [address] [id number] [place] [address]- 1926 15 Sep, 2013 [facility] [place] [facility] [address] [id number] [place] [address]- 8944 15 Sep, 2013 [facility] [place] [facility] [address] [id number] [place] [address]- 5899 09 Sep, 2013 [facility] [place] [facility] [address] [id number] [place] [address]- 7142 09 Sep, 2013 [facility] [place] [facility] [address] [id number] [place] [address]- 5590 04 Sep, 2013 [facility] [place] [facility] [address] [id number] [place] [address]- 8412 04 Sep, 2013 [facility] [place] [facility] [address] [id number] [place] [address]- 6256 02 Sep, 2013 [facility] [place] [facility] [address] [id number] [place] [address]- 5290 02 Sep, 2013 [facility] [place] [facility] [address] [id number] [place] [address]- 2631 02 Sep, 2013 [facility] [place] [facility] [address] [id number] [place] [address]- 7602 02 Jun, 2013 [facility] [place] [facility] [address] [id number] [place] [address]- 8914 02 Sep, 2013 [facility] [place] [facility] [address] [id number] [place] [address]- 2545 Jun, 2013 [facility] [place] [facility] [address] [id number] [place] [address]- 254 Jun, 2013 [facility] [place] [facility] [address] [id number] [place] [address]- 5210 Jun, 2013 [facility] [place] [facility] [address] [id number] [place] [address]- 8277 May, [facility] [place] [facility] [address] [id number] [place] [address]- 7913 May, [facility] [place] [facility] [address] [id number] [place] [address]- 8530 Apr, [facility] [place] [facility] [address] [id number] [place] [address]- 3586 Apr, [facility] [place] [facility] [address] [id number] [place] [address]- 7049 Apr, [facility] [place] [facility] [address] [id number] [place] [address]- 0582 Apr, [facility] [place] [facility] [address] [id number] [place] [address]- 0159 Apr, [facility] [place] [facility] [address] [id number] [place] [address]- 0920 Apr, [facility] [place] [facility] [address] [id number] [place] [address]- 2953 Apr, [facility] [place] [facility] [address] [id number] [place] [address]- 0412 Apr, [facility] [place] [facility] [address] [id number] [place] [address]- 6225 Apr, [facility] [place] [facility] [address] [id number] [place] [address]- 2924 Apr, [facility] [place] [facility] [address] [id number] [place] [address]- 6347 Apr, [facility] [place] [facility] [address] [id number] [place] [address]- 1774 Apr, [facility] [place] [facility] [address] [id number] [place] [address]- 5454 Apr, [facility] [place] [facility] [address] [id number] [place] [address]- 0250 Apr, [facility] [place] [facility] [address] [id number] [place] [address]- 5706 Apr, [facility] [place] [facility] [address] [id number] [place] [address]- 4041 Apr, [facility] [place] [facility] [address] [id number] [place] [address]- 9905 Apr, [facility] [place] [facility] [address] [id number] [place] [address]- 6463 Apr, [facility] [place] [facility] [address] [id number] [place] [address]- 3421 Apr, [facility] [place] [facility] [address] [id number] [place] [address]- 3534 Apr, [facility] [place] [facility] [address] [id number] [place] [address]- 2694 Mar, [facility] [place] [facility] [address] [id number] [place] [address]- 1678 Mar, [facility] [place] [facility] [address] [id number] [place] [address]- 6367 February, [facility] [place] [facility] [address] [id number] [place] [address]- 8588 February, [facility] [place] [facility] [address] [id number] [place] [address]- 7255 Jan, [facility] [place] [facility] [address] [id number] [place] [address]- 8881 Jan, [facility] [place] [facility] [address] [id number] [place] [address]- 3363 Jan, [facility] [place] [facility] [address] [id number] [place] [address]- 5133 Jan, [facility] [place] [facility] [address] [id number] [place] [address]- 2198 Dec, [facility] [place] [facility] [address] [id number] [place] [address]- 8129 Dec, [facility] [place] [facility] [address] [id number] [place] [address]- 6198 Oct, [facility] [place] [facility] [address] [id number] [place] [address]- 0428 Oct, [facility] [place] [facility] [address] [id number] [place] [address]- 7923 Oct, [facility] [place] [facility] [address] [id number] [place] [address]- 5126 Oct, [facility] [place] [facility] [address] [id number] [place] [address]- 9114 Aug, [facility] [place] [facility] [address] [id number] [place] [address]- 6654 Aug, [facility] [place] [facility] [address] [id number] [place] [address]- 2107 Aug, [facility] [place] [facility] [address] [id number] [place] [address]- 2134 Aug, [facility] [place] [facility] [address] [id number] [place] [address]- 5000 Jul, [facility] [place] [facility] [address] [id number] [place] [address]- 2466 Jul, [facility] [place] [facility] [address] [id number] [place] [address]- 0271 Jul, [facility] [place] [facility] [address] [id number] [place] [address]- 5334 Jun, [facility] [place] [facility] [address] [id number] [place] [address]- 5512 May, [facility] [place] [facility] [address] [id number] [place] [address]- 2549 Apr, [facility] [place] [facility] [address] [id number] [place] [address]- 9096 Apr, [facility] [place] [facility] [address] [id number] [place] [address]- 2546 Apr, [facility] [place] [facility] [address] [id number] [place] [address]- 8935 Apr, [facility] [address] [id number] [place] [address]- 7949 Mar, [facility] [place] [facility] [address] [id number] [place] [address]- 5477 Mar, [facility] [place] [facility] [address] [id number] [place] [address]- 3794 Mar, [facility] [place] [facility] [address] [id number] [place] [address]- 9564 Mar, [facility] [place] [facility] [address] [id number] [place] [address]- 0765 February, [facility] [place] [facility] [address] [id number] [place] [address]- 3119 February, [facility] [place] [facility] [address] [id number] [place] [address]- 8749 February, [facility] [place] [facility] [address] [id number] [place] [address]- 8571 February, [facility] [place] [facility] [address] [id number] [place] [address]- 2101 February, [facility] [place] [facility] [address] [id number] [place] [address]- 0113 Jan, [facility] [place] [facility] [address] [id number] [place] [address]- 8745 Dec, [facility] [place] [facility] [address] [id number] [place] [address]- 3330 Nov, [facility] [place] [facility] [address] [id number] [place] [address]- 9029 Nov, [facility] [place] [facility] [address] [id number] [place] [address]- 5968 Nov, [facility] [place] [facility] [address] [id number] [place] [address]- 8941 Oct, [facility] [place] [facility] [address] [id number] [place] [address]- 0355 Oct, [facility] [address] [id number] [place] [address]- 8580 Oct, [facility] [address] [id number] [place] [address]- 2337 Oct, [facility] [address] [id number] [place] [address]- 83[address] Oct, [facility] [address] [id number] [place] [address] Oct, [facility] [address] [id number] [place] [address] Sep, [facility] [address] [id number] [place] [address] Sep, [facility] [address] [id number] [place] [address] Sep, [facility] [address] [id number] [place] [address] Sep, [facility] [address] [id number] [place] [address] Aug, [facility] [address] [facility] [id number] [place] [address] Aug, [facility] [address] [id number] [place] [address] Aug, [facility] [address] [id number] [place] [address] Aug, [facility] [place] [facility] [address] [id number] [place] [address] Aug, [facility] [place] [facility] [address] [id number] [place] [address] Aug, [facility] [address] [id number] [place] [address] Jul, [facility] [place] [facility] [address] [id number] [place] [address] Jul, [facility] [place] [facility] [address] [id number] [place] [address] Jul, [facility] [place] [facility] [address] [id number] [place] [address] Jul, [facility] [place] [facility] [address] [id number] [place] [address] Jul, [facility] [place] [facility] [address] [id number] [place] [address] Jul, [facility] [place] [facility] [address] [id number] [place] [address] Jul, [facility] [place] [facility] [address] [id number] [place] [address] Jul, [facility] [place] [facility] [address] [id number] [place] [address] Jul, [facility] [place] [facility] [address] [id number] [place] [address] Jul, [facility] [place] [facility] [address] [id number] [place] [address] 26 Jun, 2012 [facility] [place] [facility] [address] [id number] [place] [address] 14 Jun, 2012 [facility] [place] [facility] [address] [id number] [place] [address] 12 Jun, 2012 [facility] [place] [facility] [address] [id number] [place] [address] May, [facility] [place] [facility] [address] [id number] [place] [address] May, [facility] [place] [facility] [address] [id number] [place] [address] May, [facility] [place] [facility] [address] [id number] [place] [address] May, [facility] [place] [facility] [address] [id number] [place] [address] Apr, [facility] [place] [facility] [address] [id number] [place] [address] Apr, [facility] [place] [facility] [address] [id number] [place] [address] Apr, [facility] [place] [facility] [address] [id number] [place] [address] Apr, [facility] [place] [facility] [address] [id number] [place] [address] Mar, [facility] [place] [facility] [address] [id number] [place] [address] Mar, [facility] [place] [facility] [address] [id number] [place] [address] Mar, [facility] [place] [facility] [address] [id number] [place] [address] February, [facility] [place] [facility] [address] [id number] [place] [address] February, [facility] [place] [facility] [address] [id number] [place] [address] Jan, [facility] [place] [facility] [address] [id number] [place] [address] Jan, [facility] [place] [facility] [address] [id number] [place] [address] Jan, [facility] [place] [facility] [address] [id number] [place] [address] 29 Dec, 2011 [facility] [place] [facility] [address] [id number] [place] [address] Dec, [facility] [place] [facility] [address] [id number] [place] [address] Dec, [facility] [place] [facility] [address] [id number] [place] [address] Dec, [facility] [place] [facility] [address] [id number] [place] [address] 29 Nov, 2011 [facility] [place] [facility] [address] [id number] [place] [address] Nov, [facility] [place] [facility] [address] [id number] [place] [address] Nov, [facility] [place] [facility] [address] [id number] [place] [address] 16 Nov, 2011 [facility] [place] [facility] [address] [id number] [place] [address] Nov, [facility] [place] [facility] [address] [id number] [place] [address] Nov, [facility] [place] [facility] [address] [id number] [place] [address] Nov, [facility] [place] [facility] [address] [id number] [place] [address] Oct, [facility] [place] [facility] [address] [id number] [place] [address] Oct, [facility] [place] [facility] [address] [id number] [place] [address] Oct, [facility] [place] [facility] [address] [id number] [place] [address] Oct, [facility] [place] [facility] [address] [id number] [place] [address] Oct, [facility] [place] [facility] [address] [id number] [place] [address] Oct, [facility] [place] [facility] [address] [id number] [place] [address] Oct, [facility] [place] [facility] [address] [id number] [place] [address] Oct, [facility] [place] [facility] [address] [id number] [place] [address] Sep, [facility] [place] [facility] [address] [id number] [place] [address] Sep, [facility] [place] [facility] [address] [id number] [place] [address] Sep, [facility] [place] [facility] [address] [id number] [place] [address] Sep, [facility] [place] [facility] [address] [id number] [place] [address] Aug, [facility] [place] [facility] [address] [id number] [place] [address] Aug, [facility] [place] [facility] [address] [id number] [place] [address] Aug, [facility] [place] [facility] [address] [id number] [place] [address] Jul, [facility] [place] [facility] [address] [id number] [place] [address] Jul, [facility] [place] [facility] [address] [id number] [place] [address] Jul, [facility] [place] [facility] [address] [id number] [place] [address] Oct, [facility] [place] [facility] [address] [id number] [place] [address] Aug, [facility] [place] [facility] [address] [id number] [place] [address] Aug, [facility] [place] [facility] [address] [id number] [place] 30 Sep, 2009 [facility] [place] [facility] [address] [id number] [place] [address] Sep, [facility] [place] [facility] [address] [facility] [id number] [place] [address] Sep, [facility] [address] [facility] [id number] [place] [address] Jan, IMMUNIZATIONS No Known Immunizations SOCIAL HISTORY Never Assessed REASON FOR VISIT Requests return call PLAN OF CARE VITAL SIGNS MEDICATIONS Medication Instructions Dosage Frequency Start Date End Date Duration Status Cymbalta 30 MG Orally Once a day take 3 tab 24h 30 days Active RESULTS No Results [...]
--- OUTSIDE RECORDS SUMMARY | 2018-08-05 07:54 | XMS REPORT ---
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 Name Role Phone GAMAL CLARK Unavailable PROBLEMS Type Condition ICD9-CM Code [id number] Code Onset Dates Condition Status SNOMED Code Problem Rectal bleed K62.5 Active 72986462 Problem Dry eyes H04.123 Active 760573395 Problem Body mass index (BMI) of 40.0-44.9 in adult Z68.41 Active 619862235 Problem Sleep apnea in adult G47.33 Active 55757369 Problem Anal fissure K60.2 Active 06011391 Problem Chronic fatigue R53.82 Active 98048737 Problem Hypertension I10 Active 49360763 ALLERGIES No Information ENCOUNTERS Encounter Location Date Diagnosis [place] [id number] [place] [address] 84203- 2469 Jun, [place] [address] 32595- 8523 May, Hypertension I10 [place] [id number] [place] [address] 56984- 3449 May, Generalized anxiety disorder 300.02 [facility] [id number] [place] [address] 62823- 1973 Apr, Sleep apnea in adult G47.33 ; Hypertension I10 and Dry eyes H04.123 [facility] [id number] [place] [address] 42406- 1542 Apr, [facility] [id number] [place] [address] 67252- 9060 Apr, [facility] [id number] [place] [address] 10893- 0209 Apr, Generalized anxiety disorder 300.02 [facility] [id number] [place] [address] 02449- 0932 Apr, Generalized anxiety disorder F41.1 [facility] [id number] [place] [address] 61766- 5383 Apr, Left breast mass N63.20 [facility] [id number] [place] [address] 30525- 4564 Apr, Generalized anxiety disorder F41.1 [facility] [id number] [place] [address] 83219- 4260 Mar, Generalized anxiety disorder 300.02 [facility] [address] 14567- 5615 Mar, [facility] [id number] [place] [address] 99808- 0454 Mar, Generalized anxiety disorder 300.02 [facility] [address] 88018- 3832 Mar, Acute serous otitis media of left ear, recurrence not specified H65.02 ; Dizziness R42 and BMI 40.0-44.9, adult Z68.41 [place] [id number] [place] [address] 64526- 1409 February, Hypertension I10 [place] [id number] [place] [address] 44727- 2689 February, Visit for TB skin test Z11.1 ; Encounter for physical examination related to employment Z02.1 ; Hypertension I10 ; Generalized anxiety disorder F41.1 ; BMI 40.0-44.9, adult Z68.41 and Chronic fatigue R53.82 [place] [id number] [place] [address] 93909- 2540 February, Rectal bleeding K62.5 and BMI 40.0-44.9, adult Z68.41 [place] [id number] [place] [address] 29299- 6800 Jan, BMI 40.0-44.9, adult Z68.41 and Skin irritation R23.8 [facility] [address] 71289- 5047 Jan, Generalized anxiety disorder F41.1 [facility] [address] 92985- 9321 Dec, [facility] [address] 57832- 6118 Nov, Body mass index (BMI) of 40.0-44.9 in adult Z68.41 ; Hypertension I10 and Seasonal allergic rhinitis, unspecified trigger J30.2 [facility] [address] 33786- 3535 Nov, Hypertension I10 [place] [address] 79599- 8288 Nov, Generalized anxiety disorder 300.02 [facility] [address] 66957- 9011 Nov, [facility] [address] 98541- 6421 Oct, [facility] [address] 04173- 7954 Oct, [facility] [address] 35373- 4208 Oct, Acute chest wall pain R07.89 [facility] [id number] [place] [address] 64254- 0644 Oct, [facility] [address] 12383- 1300 Sep, Left breast mass N63.20 [facility] [address] 76062- 7373 Sep, Left breast mass N63.20 [facility] [address] [place] [address]- 2029 Aug, Hypertension I10 [facility] [id number] [place] [address] 77995- 4405 Aug, Generalized anxiety disorder 300.02 [facility] [id number] [place] [address] 32131- 6823 Jul, Generalized anxiety disorder 300.02 [facility] [address] 08614- 3649 Jul, Sleep apnea in adult G47.33 [facility] [address] 52900- 2021 Jul, Hypertension I10 ; Sleep apnea in adult G47.33 ; Body mass index (BMI) of 40.0-44.9 in adult Z68.41 ; Morbid (severe) obesity due to excess calories E66.01 and Female hirsutism L68.0 [facility] [address] 86717- 5716 Jul, Generalized anxiety disorder 300.02 [facility] [address] 45492- 9966 Jul, Generalized anxiety disorder 300.02 [facility] [id number] [place] [address] 25067 -0356 Jun, Chronic fatigue R53.82 [facility] [id number] [place] [address] 10918- 0599 Jun, Generalized anxiety disorder F41.1 [facility] [id number] [place] [address] 45362- 8031 May, Generalized anxiety disorder 300.02 [facility] [address] 70910- 2070 Apr, Generalized anxiety disorder F41.1 ; Hypertension I10 ; Hyperlipidemia E78.5 ; Female hirsutism L68.0 and Sleep apnea in adult G47.33 [facility] [address] [place] [address]- 1270 Mar, Hypertension I10 and Generalized anxiety disorder F41.1 [place] [address] 57354- 7368 Mar, [facility] [address] 50497- 5539 February, Hypertension I10 and Generalized anxiety disorder F41.1 [place] [address] 17368- 3316 February, Generalized anxiety disorder 300.02 [facility] [address] 51001 -4647 February, Pelvic pain R10.2 and Painful bladder spasm R30.1 [place] [address] 56479- 0248 Jan, Generalized anxiety disorder 300.02 [place] [address] 75950- 1766 Dec, Obesity, unspecified E66.9 ; Generalized anxiety disorder F41.1 and Hypertension I10 [place] [address] 89356- 3431 15 Nov, 2016 Generalized anxiety disorder F41.1 ; Hypertension I10 ; Depression F32.9 and Obesity, unspecified E66.9 [place] [address] 24770- 8699 Nov, Generalized anxiety disorder 300.02 [facility] [address] 86221- 8655 Oct, [place] [address] 18221- 5286 Sep, History of pneumonia Z87.01 ; Hypokalemia E87.6 ; Hypertension I10 and Encounter for immunization Z23 [place] [address] 74192- 7983 Jul, [place] [address] [address] 3729 Apr, Hypertension I10 ; Hypercholesteremia E78.0 ; Obesity, unspecified E66.9 ; Anxiety F41.9 and Lumbago M54.5 [facility] [address] [place] [address] 86891- 0621 Apr, Depression F32.9 [place] [id number] [place] [address] 53183- 5713 Mar, Essential (primary) hypertension I10 [place] [id number] [address] Jan [facility] [id number] [place] [address] 58555- 0064 Dec, [facility] [id number] [place] [address] 30350- 1804 Dec, Generalized anxiety disorder F41.1 and Hypertension I10 [facility] [id number] [place] [address] 91318- 9380 Dec, [place] [id number] [place] [address] 88027- 5512 Dec, Abdominal pain R10.9 [place] [id number] [place] [address] 97635- 1932 Dec, Left sided abdominal pain of unknown cause R10.30 [facility] [id number] [place] [address] 39147- 5020 Nov, Generalized anxiety disorder 300.02 [facility] [id number] [place] [address] 13971- 2651 Nov, Female hirsutism L68.0 ; Hypertension I10 ; Hyperlipidemia E78.5 ; Depression F32.9 and Anxiety F41.9 [facility] [address] [place] [address] 52300- 1046 Oct, [facility] [id number] [place] [address] 49082- 3294 Oct, [facility] [id number] [place] [address] 08821- 9306 Oct, [facility] [id number] [place] [address] 02746- 3620 Oct, [place] [id number] [place] [address] 69327- 6463 Oct, Well woman exam Z01.419 ; Encounter [...] unspecified obesity severity, unspecified obesity type E66.9 [place] [id number] [place] [address] 73690- 8365 Jun, Generalized anxiety disorder 300.02 [place] [id number] [place] [address] 53021- 8696 Jun, Chest pain 786.50 ; Hypertension 401.9 ; Hyperlipemia 272.4 and Obesity 278.00 [place] [id number] [place] [address] 35842- 1150 Apr, Generalized anxiety disorder 300.02 [facility] [id number] [place] [address] 74187- 1276 Apr, Generalized anxiety disorder 300.02 [facility] [id number] [place] [address] 41250- 2342 Apr, [facility] [id number] [place] [address] 82612- 7880 Apr, [facility] [id number] [place] [address] 21709- 2775 Apr, Abdominal pain 789.00 ; Dehydration 276.51 ; Generalized anxiety disorder 300.02 ; Other and unspecified bipolar disorders 296.89 ; Obesity, unspecified 278.00 ; Family history of hypercholesterolemia V18.19 ; Diarrhea 787.91 ; Sleep apnea in adult 327.23 and Essential hypertension 401.9 [facility] [id number] [address]- 4183 Mar, Generalized anxiety disorder 300.02 [facility] [address] 44620- 1970 February, [facility] [id number] [place] [address] 24856- 0722 Jan, [facility] [id number] [place] [address] 46075- 6048 Jan, [facility] [id number] [place] [address] 247275- 6793 Oct, [facility] [id number] [place] [address] 52662- 7562 Oct, [facility] [id number] [place] [address] 09121- 0661 Oct, [facility] [id number] [place] [address] 20815- 2774 Oct, [facility] [id number] [place] [address] 11500- 3760 Sep, [facility] [id number] [place] [address] 44688- 1037 Sep, [facility] [id number] [place] [address] 675957- 5767 Sep, [facility] [id number] [place] [address] 881126- 5439 Sep, [facility] [id number] [place] [address] 37681- 2319 Sep, [facility] [id number] [place] [address] 62532- 6776 Sep, [facility] [place] [facility] [address] [id number] [place] [address]- 5086 Sep, [facility] [place] [facility] [address] [id number] [place] [address]- 7858 Aug, [facility] [place] [facility] [address] [id number] [place] [address]- 8029 Aug, [facility] [place] [facility] [address] [id number] [place] [address]- 0270 Aug, [facility] [place] [facility] [address] [id number] [place] [address]- 1807 Aug, [facility] [place] [facility] [address] [id number] [place] 1850 Jul, [facility] [place] [facility] [address] [id number] [place] [address]- 2283 Jul, [facility] [place] [facility] [address] [id number] [place] [address]- 6007 Jul, [facility] [place] [facility] [address] [id number] [place] [address]- 5135 Jul, [facility] [place] [facility] [address] [id number] [place] [address]- 3816 Jul, [facility] [place] [facility] [address] [id number] 1909 Jul, [facility] [place] [facility] [address] [id number] [address]- 3902 Jul, [facility] [place] [facility] [address] [id number] [place] [address]- 5511 Jul, [facility] [place] [facility] [address] [id number] [place] [address]- 7276 Jun, [facility] [place] [facility] [address] [id number] [place] [address]- 4514 Jun, [facility] [place] [facility] [address] [id number] [place] [address]- 0376 15 Sep, 2013 [facility] [place] [facility] [address] [id number] [place] [address]- 1583 15 Sep, 2013 [facility] [place] [facility] [address] [id number] [place] [address]- 9596 09 Sep, 2013 [facility] [place] [facility] [address] [id number] [place] [address]- 1039 09 Sep, 2013 [facility] [place] [facility] [address] [id number] [place] [address]- 0813 04 Sep, 2013 [facility] [place] [facility] [address] [id number] [place] [address]- 6658 04 Sep, 2013 [facility] [place] [facility] [address] [id number] [place] [address]- 2493 02 Sep, 2013 [facility] [place] [facility] [address] [id number] [place] [address]- 3525 02 Sep, 2013 [facility] [place] [facility] [address] [id number] [place] [address]- 6868 02 Sep, 2013 [facility] [place] [facility] [address] [id number] [place] [address]- 2359 02 Jun, 2013 [facility] [place] [facility] [address] [id number] [place] [address]- 2779 02 Sep, 2013 [facility] [place] [facility] [address] [id number] [place] [address]- 2543 Jun, 2013 [facility] [place] [facility] [address] [id number] [place] [address]- 2547 Jun, 2013 [facility] [place] [facility] [address] [id number] [place] [address]- 7403 Jun, 2013 [facility] [place] [facility] [address] [id number] [place] [address]- 6766 May, [facility] [place] [facility] [address] [id number] [place] [address]- 2273 May, [facility] [place] [facility] [address] [id number] [place] [address]- 2483 Apr, [facility] [place] [facility] [address] [id number] [place] [address]- 6601 Apr, [facility] [place] [facility] [address] [id number] [place] [address]- 9295 Apr, [facility] [place] [facility] [address] [id number] [place] [address]- 8171 Apr, [facility] [place] [facility] [address] [id number] [place] [address]- 6239 Apr, [facility] [place] [facility] [address] [id number] [place] [address]- 2504 Apr, [facility] [place] [facility] [address] [id number] [place] [address]- 4999 Apr, [facility] [place] [facility] [address] [id number] [place] [address]- 8443 Apr, [facility] [place] [facility] [address] [id number] [place] [address]- 6559 Apr, [facility] [place] [facility] [address] [id number] [place] [address]- 2124 Apr, [facility] [place] [facility] [address] [id number] [place] [address]- 0088 Apr, [facility] [place] [facility] [address] [id number] [place] [address]- 6768 Apr, [facility] [place] [facility] [address] [id number] [place] [address]- 8252 Apr, [facility] [place] [facility] [address] [id number] [place] [address]- 0507 Apr, [facility] [place] [facility] [address] [id number] [place] [address]- 8424 Apr, [facility] [place] [facility] [address] [id number] [place] [address]- 8443 Apr, [facility] [place] [facility] [address] [id number] [place] [address]- 3163 Apr, [facility] [place] [facility] [address] [id number] [place] [address]- 3335 Apr, [facility] [place] [facility] [address] [id number] [place] [address]- 6288 Apr, [facility] [place] [facility] [address] [id number] [place] [address]- 6184 Apr, [facility] [place] [facility] [address] [id number] [place] [address]- 5564 Mar, [facility] [place] [facility] [address] [id number] [place] [address]- 6774 Mar, [facility] [place] [facility] [address] [id number] [place] [address]- 9050 February, [facility] [place] [facility] [address] [id number] [place] [address]- 5071 February, [facility] [place] [facility] [address] [id number] [place] [address]- 0539 Jan, [facility] [place] [facility] [address] [id number] [place] [address]- 9740 Jan, [facility] [place] [facility] [address] [id number] [place] [address]- 1839 Jan, [facility] [place] [facility] [address] [id number] [place] [address]- 8424 Jan, [facility] [place] [facility] [address] [id number] [place] [address]- 4346 Dec, [facility] [place] [facility] [address] [id number] [place] [address]- 4869 Dec, [facility] [place] [facility] [address] [id number] [place] [address]- 8986 Oct, [facility] [place] [facility] [address] [id number] [place] [address]- 6454 Oct, [facility] [place] [facility] [address] [id number] [place] [address]- 9492 Oct, [facility] [place] [facility] [address] [id number] [place] [address]- 6276 Oct, [facility] [place] [facility] [address] [id number] [place] [address]- 7130 Aug, [facility] [place] [facility] [address] [id number] [place] [address]- 1616 Aug, [facility] [place] [facility] [address] [id number] [place] [address]- 7860 Aug, [facility] [place] [facility] [address] [id number] [place] [address]- 5977 Aug, [facility] [place] [facility] [address] [id number] [place] [address]- 4499 Jul, [facility] [place] [facility] [address] [id number] [place] [address]- 6331 Jul, [facility] [place] [facility] [address] [id number] [place] [address]- 9568 Jul, [facility] [place] [facility] [address] [id number] [place] [address]- 9228 Jun, [facility] [place] [facility] [address] [id number] [place] [address]- 0843 May, [facility] [place] [facility] [address] [id number] [place] [address]- 254 Apr, [facility] [place] [facility] [address] [id number] [place] [address]- 0586 Apr, [facility] [place] [facility] [address] [id number] [place] [address]- 2546 Apr, [facility] [place] [facility] [address] [id number] [place] [address]- 0518 Apr, [facility] [address] [id number] [place] [address]- 4156 Mar, [facility] [place] [facility] [address] [id number] [place] [address]- 1459 Mar, [facility] [place] [facility] [address] [id number] [place] [address]- 5040 Mar, [facility] [place] [facility] [address] [id number] [place] [address]- 4482 Mar, [facility] [place] [facility] [address] [id number] [place] [address]- 3472 February, [facility] [place] [facility] [address] [id number] [place] [address]- 4104 February, [facility] [place] [facility] [address] [id number] [place] [address] February, [facility] [place] [facility] [address] [id number] [place] [address] February, [facility] [place] [facility] [address] [id number] [place] [address] February, [facility] [place] [facility] [address] [id number] [place] [address] Jan, [facility] [place] [facility] [address] [id number] [place] [address] Dec, [facility] [place] [facility] [address] [id number], [place] [address] Nov, [facility] [place] [facility] [address] [id number] [place] [address] Nov, [facility] [place] [facility] [address] [id number] [place] [address] Nov, [facility] [place] [facility] [address] [id number] [place] [address] Oct, [facility] [place] [facility] [address] [id number] [place] [address] Oct, [facility] [address] [id number] [place] [address] Oct, [facility] [address] [id number] [place] [address] Oct, [facility] [address] [id number] [place] [address] 4[address] Oct, [facility] [address] [id number] [place] [address] Oct, [facility] [address] [id number] [place] [address] Sep, [facility] [address] [id number] [place] [address] Sep, [facility] [address] [id number] [place] [address]28 Sep, [facility] [address] [id number] [place] [address] Sep, [facility] [address] [id number] [place] [address] Aug, [facility] [address] [facility] [place] [id number] [place] [address] Aug, [facility] [address] [id number] [place] [address] Aug, [facility] [address] [id number] [place] [address] Aug, [facility] [place] [facility] [address] [id number] [place] [address] Aug, [facility] [place] [facility] [address] [id number] [place] [address] Aug, [facility] [address] [id number] [place] [address] Jul, [facility] [place] [facility] [address] [id number] [place] [address] Jul, [facility] [place] [facility] [address] [id number] [place] [address] Jul, [facility] [place] [facility] [address] [id number] [place] [address] Jul, [facility] [place] [facility] [address] [id number] [place] [address] Jul, [facility] [place] [facility] [address] [id number] [place] [address] Jul, [facility] [place] [facility] [address] [id number] [place] [address] 2765 Jul, [facility] [place] [facility] [address] [id number] [place] [address] 69[address] Jul, [facility] [place] [facility] [address] [id number] [place] [address] Jul, [facility] [place] [facility] [address] [id number] [place] [address] Jul, [facility] [place] [facility] [address] [id number] [place] [address] 26 Jun, 2012 [facility] [place] [facility] [address] [id number] [place] [address]- [address]20 14 Jun, 2012 [facility] [place] [facility] [address] [id number], [place] [address] 12 Jun, 2012 [facility] [place] [facility] [address] [id number] [place] [address] 40[address] May, [facility] [place] [facility] [address] [id number] [place] [address] May, [facility] [place] [facility] [address] [id number], [place] [address] May, [facility] [place] [facility] [address] [id number], [place] [address] May, [facility] [place] [facility] [address] [id number] [place] [address] Apr, [facility] [place] [facility] [address] [id number] [place] [address] Apr, [facility] [place] [facility] [address] [id number] [place] [address] Apr, [facility] [place] [facility] [address] [id number] [place] [address] Apr, [facility] [place] [facility] [address] [id number] [place] [address] Mar, [facility] [place] [facility] [address] [id number] [place] [address] Mar, [facility] [place] [facility] [address] [id number] [place] [address] Mar, [facility] [place] [facility] [address] [id number] [place] [address] February, [facility] [place] [facility] [address] [id number] [place] [address] February, [facility] [place] [facility] [address] [id number] [place] [address] Jan, [facility] [place] [facility] [address] [id number] [place] [address] Jan, [facility] [place] [facility] [address] [id number] [place] [address] Jan, [facility] [place] [facility] [address] [id number] [place] [address] 29 Dec, 2011 [facility] [place] [facility] [address] [id number] [place] [address] Dec, [facility] [place] [facility] [address] [id number] [place] [address] Dec, [facility] [place] [facility] [address] [id number] [place] [address] Dec, [facility] [place] [facility] [address] [id number] [place] [address] 29 Nov, 2011 [facility] [place] [facility] [address] [id number] [place] [address] Nov, [facility] [place] [facility] [address] [id number] [place] [address] Nov, [facility] [place] [facility] [address] [id number] [place] [address] 16 Nov, 2011 [facility] [place] [facility] [address] [id number] [place] [address] Nov, [facility] [place] [facility] [address] [id number] [place] [address] Nov, [facility] [place] [facility] [address] [id number] [place] [address] Nov, [facility] [place] [facility] [address] [id number] [place] [address] Oct, [facility] [place] [facility] [address] [id number] [place] [address] Oct, [facility] [place] [facility] [address] [id number] [place] [address] Oct, [facility] [place] [facility] [address] [id number] [place] [address] Oct, [facility] [place] [facility] [address] [id number] [place] [address] Oct, [facility] [place] [facility] [address] [id number] [place] [address] Oct, [facility] [place] [facility] [address] [id number] [place] [address] 6[address] Oct, [facility] [place] [facility] [address] [id number] [address] Oct, [facility] [place] [facility] [address] [id number] [place] [address] Sep, [facility] [place] [facility] [address] [id number] [place] [address] Sep, [facility] [place] [facility] [address] [id number] [place] [address] Sep, [facility] [place] [facility] [address] [id number] [place] [address] Sep, [facility] [place] [facility] [address] [id number] [place] [address] Aug, [facility] [place] [facility] [address] [id number] [place] [address] Aug, [facility] [place] [facility] [address] [id number] [place] [address] 39[address] Aug, [facility] [place] [facility] [address] [id number] [place] [address] Jul, [facility] [place] [facility] [address] [id number] [place] [address] Jul, [facility] [place] [facility] [address] [id number] [place] [address] Jul, [facility] [place] [facility] [address] [id number], [place] [address] Oct, [facility] [place] [facility] [address] [id number], [place] [address] Aug, [facility] [place] [facility] [address] [id number] [place] [address] Aug, [facility] [place] [facility] [address] [id number] [place] 30 Sep, 2009 [facility] [place] [facility] [address] [id number] [place] [address] Sep, [facility] [place] [facility] [address] [facility] [id number] [place] [address] Sep, [facility] [address] [facility] [id number] [place] [address] Jan, IMMUNIZATIONS No Known Immunizations SOCIAL HISTORY [...]
--- OUTSIDE RECORDS SUMMARY | 2018-08-05 07:54 | XMS REPORT ---
Author Author OSVALDO RODRIGUEZ Organization [facility] Address [address] [place] [address] Care Team Providers Care Supervisor Inspection And Testing Name Role Phone OSVALDO RODRIGUEZ Unavailable PROBLEMS Type Condition ICD9-CM Code QAR57-LY Code Onset Dates Condition Status SNOMED Code Problem Rectal bleed K62.5 Active 23220150 Problem Dry eyes H04.123 Active 019448904 Problem Body mass index (BMI) of 40.0-44.9 in adult Z68.41 Active 153034497 Problem Sleep apnea in adult G47.33 Active 46372731 Problem Anal fissure K60.2 Active 34732923 Problem Chronic fatigue R53.82 Active 21201724 Problem Hypertension I10 Active 98864423 ALLERGIES No Information ENCOUNTERS Encounter Location Date Diagnosis [facility] [id number] [place] [address] 58876- 1673 Jun, [facility] [id number] [place] [address] 85774- 0955 May, Hypertension I10 [facility] [id number] [place] [address] 04610- 8094 May, Generalized anxiety disorder 300.02 [facility] [id number] [place] [address] 77545- 4056 Apr, Sleep apnea in adult G47.33 ; Hypertension I10 and Dry eyes H04.123 [facility] [address] 62668- 8763 Apr, [facility] [id number] [place] [address] 38706- 1243 Apr, [facility] [address] 32122- 5146 Apr, Generalized anxiety disorder 300.02 [facility] [id number] [place] [address] 52265- 3837 Apr, Generalized anxiety disorder F41.1 [facility] [id number] [place] [address] 27857- 1399 Apr, Left breast mass N63.20 [facility] [address] 98516- 1866 Apr, Generalized anxiety disorder F41.1 [facility] [id number] [place] [address] 27852- 0844 Mar, Generalized anxiety disorder 300.02 [facility] [id number] [place] [address] 77337- 5137 Mar, [facility] [id number] [place] [address] 30654- 1109 Mar, Generalized anxiety disorder 300.02 [facility] [id number] [place] [address] 68343- 0830 Mar, Acute serous otitis media of left ear, recurrence not specified H65.02 ; Dizziness R42 and BMI 40.0-44.9, adult Z68.41 [facility] [id number] [place] [address] 38160- 4997 February, Hypertension I10 [facility] [id number] [place] [address] 06427- 2754 February, Visit for TB skin test Z11.1 ; Encounter for physical examination related to employment Z02.1 ; Hypertension I10 ; Generalized anxiety disorder F41.1 ; BMI 40.0-44.9, adult Z68.41 and Chronic fatigue R53.82 [facility] [id number] [place] [address] 68298- 9924 February, Rectal bleeding K62.5 and BMI 40.0-44.9, adult Z68.41 [facility] [id number] [place] [address] 39548- 9438 Jan, BMI 40.0-44.9, adult Z68.41 and Skin irritation R23.8 [facility] [address] 91278- 4242 Jan, Generalized anxiety disorder F41.1 [facility] [address] 20251- 9739 Dec, [facility] [address] 96578- 8755 Nov, Body mass index (BMI) of 40.0-44.9 in adult Z68.41 ; Hypertension I10 and Seasonal allergic rhinitis, unspecified trigger J30.2 [facility] [address] 58806- 6485 Nov, Hypertension I10 [facility] [address] 78698- 7880 Nov, Generalized anxiety disorder 300.02 [facility] [id number] [place] [address] 47063- 6351 Nov, [facility] [address] 68983- 7265 Oct, [facility] [id number] [place] [address] 14610- 7858 Oct, [facility] [address] 44161- 4578 Oct, Acute chest wall pain R07.89 [facility] [id number] [place] [address] 95600- 7212 Oct, [facility] [address] 59850- 9980 Sep, Left breast mass N63.20 [facility] [id number] [place] [address] 92731- 3255 Sep, Left breast mass N63.20 [facility] [address] [address] 6906 Aug, Hypertension I10 [facility] [id number] [place] [address] 32945- 4276 Aug, Generalized anxiety disorder 300.02 [facility] [id number] [place] [address] 96596- 1321 Jul, Generalized anxiety disorder 300.02 [facility] [id number] [place] [address] 93457- 2195 Jul, Sleep apnea in adult G47.33 [facility] [id number] [place] [address] 22570- 2184 Jul, Hypertension I10 ; Sleep apnea in adult G47.33 ; Body mass index (BMI) of 40.0-44.9 in adult Z68.41 ; Morbid (severe) obesity due to excess calories E66.01 and Female hirsutism L68.0 [facility] [id number] [place] [address] 39344- 3229 Jul, Generalized anxiety disorder 300.02 [facility] [id number] [place] [address] 35900- 2455 Jul, Generalized anxiety disorder 300.02 [facility] [address] [address] Jun, Chronic fatigue R53.82 [facility] [id number] [place] [address] 58172- 1366 Jun, Generalized anxiety disorder F41.1 [facility] [id number] [place] [address] 91848- 3448 May, Generalized anxiety disorder 300.02 [facility] [id number] [place] [address] 30173- 6952 Apr, Generalized anxiety disorder F41.1 ; Hypertension I10 ; Hyperlipidemia E78.5 ; Female hirsutism L68.0 and Sleep apnea in adult G47.33 [facility] [id number] [place] [address]- 3058 Mar, Hypertension I10 and Generalized anxiety disorder F41.1 [facility] [address] 01757- 1226 Mar, [facility] [address] 53562- 2792 February, Hypertension I10 and Generalized anxiety disorder F41.1 [facility] [address] 02539- 2430 February, Generalized anxiety disorder 300.02 [facility] [address] 44256 -5034 February, Pelvic pain R10.2 and Painful bladder spasm R30.1 [facility] [address] 06812- 1636 Jan, Generalized anxiety disorder 300.02 [facility] [address] 07264- 2217 Dec, Obesity, unspecified E66.9 ; Generalized anxiety disorder F41.1 and Hypertension I10 [facility] [address] 82971- 7960 15 Nov, 2016 Generalized anxiety disorder F41.1 ; Hypertension I10 ; Depression F32.9 and Obesity, unspecified E66.9 [facility] [id number] [place] [address] 09287- 1461 Nov, Generalized anxiety disorder 300.02 [facility] [address] 18402- 4081 Oct, [facility] [address] 85369- 1531 Sep, History of pneumonia Z87.01 ; Hypokalemia E87.6 ; Hypertension I10 and Encounter for immunization Z23 [facility] [address] 84268- 4465 Jul, [facility] [id number] [place] [address] 46664- 9968 Apr, Hypertension I10 ; Hypercholesteremia E78.0 ; Obesity, unspecified E66.9 ; Anxiety F41.9 and Lumbago M54.5 [facility] [id number] [place] [address] 97267- 3291 Apr, Depression F32.9 [facility] [id number] [place] [address] 68855- 0894 Mar, Essential (primary) hypertension I10 [place] [id number] [address] Jan [facility] [id number] [place] [address] 07522- 5958 Dec, [facility] [id number] [place] [address] 74950- 1414 Dec, Generalized anxiety disorder F41.1 and Hypertension I10 [facility] [id number] [place] [address] 50843- 5221 Dec, [facility] [id number] [place] [address] 54101- 2046 Dec, Abdominal pain R10.9 [facility] [id number] [place] [address] 45388- 3719 Dec, Left sided abdominal pain of unknown cause R10.30 [facility] [id number] [place] [address] 86990- 8803 Nov, Generalized anxiety disorder 300.02 [facility] [id number] [place] [address] 31458- 4776 Nov, Female hirsutism L68.0 ; Hypertension I10 ; Hyperlipidemia E78.5 ; Depression F32.9 and Anxiety F41.9 [facility] [id number] [place] [address] 60945- 9491 Oct, [facility] [place] [id number] [place] [address] 54372- 6166 Oct, [facility] [id number] [place] [address] 82413- 6365 Oct, [facility] [id number] [place] [address] 87674- 8767 Oct, [facility] [id number] [place] [address] 75947- 3967 Oct, Well woman exam Z01.419 ; Encounter [...] unspecified obesity severity, unspecified obesity type E66.9 [facility] [id number] [place] [address] 01199- 3685 Jun, Generalized anxiety disorder 300.02 [facility] [id number] [place] [address] 85385- 9574 Jun, Chest pain 786.50 ; Hypertension 401.9 ; Hyperlipemia 272.4 and Obesity 278.00 [place] [id number] [place] [address] 51738- 1304 Apr, Generalized anxiety disorder 300.02 [facility] [id number] [place] [address] 72654- 9406 Apr, Generalized anxiety disorder 300.02 [facility] [id number] [place] [address] 29199- 3418 Apr, [facility] [id number] [place] [address] 77936- 3683 Apr, [facility] [id number] [place] [address] 88529- 0055 Apr, Abdominal pain 789.00 ; Dehydration 276.51 ; Generalized anxiety disorder 300.02 ; Other and unspecified bipolar disorders 296.89 ; Obesity, unspecified 278.00 ; Family history of hypercholesterolemia V18.19 ; Diarrhea 787.91 ; Sleep apnea in adult 327.23 and Essential hypertension 401.9 [facility] [address] [address]- 6581 Mar, Generalized anxiety disorder 300.02 [facility] [id number] [place] [address] 87163- 9696 February, [facility] [id number] [place] [address] 00148- 8079 Jan, [facility] [id number] [place] [address] 25543- 8106 Jan, [facility] [id number] [place] [address] 90946- 2650 Oct, [facility] [id number] [place] [address] 28560- 8624 Oct, [facility] [id number] [place] [address] 39145- 4768 Oct, [facility] [id number] [place] [address] 24954- 2742 Oct, [facility] [address] [address]- 3855 Sep, [facility] [id number] [address]- 9394 Sep, [facility] [address] [address]- 6905 Sep, [facility] [id number] [place] [address] 21629- 0691 Sep, [facility] [address] 0488 Sep, [facility] [id number] [place] [address] 39739- 1996 Sep, [facility] [place] [facility] [address] [id number] [place] [address]- 7471 Sep, [facility] [place] [facility] [address] [id number] [place] 5744 Aug, [facility] [place] [facility] [address] [id number] [place] [address]- 3712 Aug, [facility] [place] [facility] [address] [id number] [place] [address]- 0273 Aug, [facility] [place] [facility] [address] [id number] [place]- 7749 Aug, [facility] [place] [facility] [address] [id number] [place] [address]- 5313 Jul, [facility] [place] [facility] [address] [id number] [place] [address]- 6282 Jul, [facility] [place] [facility] [address] [id number] [place] [address]- 9252 Jul, [facility] [place] [facility] [address] [id number] [place] [address]- 2045 Jul, [facility] [place] [facility] [address] [id number] [place] [address]- 8436 Jul, [facility] [place] [facility] [address] [id number] [place] [address]- 3781 Jul, [facility] [place] [facility] [address] [id number] [place] [address]- 1528 Jul, [facility] [place] [facility] [address] [id number] [place] [address]- 3722 Jul, [facility] [place] [facility] [address] [id number] [place] [address]- 5078 Jun, [facility] [place] [facility] [address] [id number] [place] [address]- 1850 16 Jun, 2014 [facility] [place] [facility] [address] [id number] [place] [address]- 1579 15 Sep, 2013 [facility] [place] [facility] [address] [id number] [place] [address]- 6026 15 Sep, 2013 [facility] [place] [facility] [address] [id number] [place] [address]- 7546 09 Sep, 2013 [facility] [place] [facility] [address] [id number] [place] [address]- 2526 09 Sep, 2013 [facility] [place] [facility] [address] [id number] [place] [address]- 4019 04 Sep, 2013 [facility] [place] [facility] [address] [id number] [place] [address]- 7219 04 Sep, 2013 [facility] [place] [facility] [address] [id number] [place] [address]- 3741 02 Sep, 2013 [facility] [place] [facility] [address] [id number] [place] [address]- 4346 02 Sep, 2013 [facility] [place] [facility] [address] [id number] [place] [address]- 0956 02 Sep, 2013 [facility] [place] [facility] [address] [id number] [place] [address]- 2543 02 Sep, 2013 [facility] [place] [facility] [address] [id number] [place] [address]- 7587 02 Sep, 2013 [facility] [place] [facility] [address] [id number] [place] [address]- 0080 Jun, 2013 [facility] [place] [facility] [address] [id number] [place] [address] 2549 Sep, 2013 [facility] [place] [facility] [address] [id number] [place] [address]- 2541 Jun, 2013 [facility] [place] [facility] [address] [id number] [place] [address]- 0277 May, 2013 [facility] [place] [facility] [address] [id number] [place] [address]- 2372 May, [facility] [place] [facility] [address] [id number] [place] [address]- 5172 Apr, [facility] [place] [facility] [address] [id number] [place] [address]- 7591 Apr, [facility] [place] [facility] [address] [id number] [place] [address]- 5426 Apr, [facility] [place] [facility] [address] [id number] [place] [address]- 2111 Apr, [facility] [place] [facility] [address] [id number] [place] [address]- 2852 Apr, [facility] [place] [facility] [address] [id number] [place] [address]- 6445 Apr, [facility] [place] [facility] [address] [id number] [place] [address]- 3602 Apr, [facility] [place] [facility] [address] [id number] [place] [address]- 1130 Apr, [facility] [place] [facility] [address] [id number] [place] [address]- 2944 Apr, [facility] [place] [facility] [address] [id number] [place] [address]- 2966 Apr, [facility] [place] [facility] [address] [id number] [place] [address]- 5541 Apr, [facility] [place] [facility] [address] [id number] [place] [address]- 0100 Apr, [facility] [place] [facility] [address] [id number] [place] [address]- 1159 Apr, [facility] [place] [facility] [address] [id number] [place] [address]- 1593 Apr, [facility] [place] [facility] [address] [id number] [place] [address]- 3594 Apr, [facility] [place] [facility] [address] [id number] [place] [address]- 5454 Apr, [facility] [place] [facility] [address] [id number] [place] 7351 Apr, [facility] [place] [facility] [address] [id number] [place] [address]- 3189 Apr, [facility] [place] [facility] [address] [id number] [place] [address]- 7692 Apr, [facility] [place] [facility] [address] [id number] [place] [address]- 5209 Apr, [facility] [place] [facility] [address] [id number] [place] [address]- 8496 Mar, [facility] [place] [facility] [address] [id number] [place] [address]- 2973 Mar, [facility] [place] [facility] [address] [id number] [place] [address]- 4148 February, [facility] [place] [facility] [address] [id number] [place] [address]- 0181 February, [facility] [place] [facility] [address] [id number] [place] [address]- 5852 Jan, [facility] [place] [facility] [address] [id number] [place] [address]- 1353 Jan, [facility] [place] [facility] [address] [id number] [place] [address]- 0512 Jan, [facility] [place] [facility] [address] [id number] [place] [address]- 5118 Jan, [facility] [place] [facility] [address] [id number] [place] [address]- 9877 Dec, [facility] [place] [facility] [address] [id number] [place] [address]- 9224 Dec, [facility] [place] [facility] [address] [id number] [place] [address]- 2055 Oct, [facility] [place] [facility] [address] [id number] [place] [address]- 5682 Oct, [facility] [place] [facility] [address] [id number] [place] [address]- 6228 Oct, [facility] [place] [facility] [address] [id number] [place] [address]- 1455 Oct, [facility] [place] [facility] [address] [id number] [place] [address]- 7123 Aug, [facility] [place] [facility] [address] [id number] [place] [address]- 7106 Aug, [facility] [place] [facility] [address] [id number] [place] [address]- 5780 Aug, [facility] [place] [facility] [address] [id number] [place] [address]- 8581 Aug, [facility] [place] [facility] [address] [id number] [place] [address]- 1374 Jul, [facility] [place] [facility] [address] [id number] [place] [address]- 1166 Jul, [facility] [place] [facility] [address] [id number] [place] [address]- 0210 Jul, [facility] [place] [facility] [address] [id number] [place] [address]- 0128 Jun, [facility] [place] [facility] [address] [id number] [place] [address]- 0637 May, [facility] [place] [facility] [address] [id number] [place] [address]- 8570 Apr, [facility] [place] [facility] [address] [id number] [place] [address]- 3781 Apr, [facility] [place] [facility] [address] [id number] [place] [address]- 4954 Apr, [facility] [place] [facility] [address] [id number] [place] [address]- 4446 Apr, [facility] [address] [id number] [place] [address]- 3064 Mar, [facility] [place] [facility] [address] [id number] [place] [address]- 9095 Mar, [facility] [place] [facility] [address] [id number] [place] [address]- 7693 Mar, [facility] [place] [facility] [address] [id number] [place] [address]- 3463 Mar, [facility] [place] [facility] [address] [id number] [place] [address]- 8360 February, [facility] [place] [facility] [address] [id number] [place] 0400 February, [facility] [place] [facility] [address] [id number] [place] [address] February, [facility] [place] [facility] [address] [id number] [place] [address] February, [facility] [place] [facility] [address] [id number] [place] [address] February, [facility] [place] [facility] [address] [id number] [place] [address] Jan, [facility] [place] [facility] [address] [id number] [place] [address] Dec, [facility] [place] [facility] [address] [id number] [place] [address] Nov, [facility] [place] [facility] [address] [id number] [place] [address] Nov, [facility] [place] [facility] [address] [id number] [place] [address] Nov, [facility] [place] [facility] [address] [id number] [place] [address] Oct, [facility] [place] [facility] [address] [id number] [place] [address] Oct, [facility] [address] [id number] [place] [address] Oct, [facility] [place] [facility] [address] [id number] [place] [address] Oct, [facility] [address] [id number] [place] [address] Oct, [facility] [place] [facility] [address] [id number] [place] [address] Oct, [facility] [address] [id number] [place] [address] Sep, [facility] [place] [facility] [address] [id number] [place] [address] Sep, [facility] [place] [facility] [address] [id number] [place] [address] Sep, [facility] [address] [id number] [place] [address] Sep, [facility] [place] [facility] [address] [id number] [place] [address] Aug, [facility] [address] [id number] [place] [address] Aug, [facility] [place] [facility] [address] [id number] [place] [address] Aug, [facility] [place] [facility] [address] [id number] [place] [address] Aug, [facility] [place] [facility] [address] [id number] [place] [address] Aug, [facility] [place] [facility] [address] [id number] [place] [address] Aug, [facility] [place] [facility] [address] [id number] [place] [address] Jul, [facility] [place] [facility] [address] [id number] [place] [address] Jul, [facility] [place] [facility] [address] [id number] [place] [address] Jul, [facility] [place] [facility] [address] [id number] [place] [address] Jul, [facility] [place] [facility] [address] [id number] [place] [address] Jul, [facility] [place] [facility] [address] [id number] [place] [address] Jul, [facility] [place] [facility] [address] [id number] [place] [address] Jul, [facility] [place] [facility] [address] [id number] [place] [address] Jul, [facility] [place] [facility] [address] [id number] [place] [address] Jul, [facility] [place] [facility] [address] [id number] [place] [address] Jul, [facility] [place] [facility] [address] [id number] [place] [address] 26 Jun, 2012 [facility] [place] [facility] [address] [id number] [place] [address] 14 Jun, 2012 [facility] [place] [facility] [address] [id number] [address] 12 Jun, 2012 [facility] [place] [facility] [address] [id number] [place] [address] May, [facility] [place] [facility] [address] [id number] [place] [address]- [address] 16 May, 2012 [facility] [place] [facility] [address] [id number] [place] [address] May, [facility] [place] [facility] [address] [id number] [place] [address] May, [facility] [place] [facility] [address] [id number] [place] [address] Apr, [facility] [place] [facility] [address] [id number] [place] [address] Apr, [facility] [place] [facility] [address] [id number] [place] [address] Apr, [facility] [place] [facility] [address] [id number] [place] [address] Apr, [facility] [place] [facility] [address] [id number] [place] [address] Mar, [facility] [place] [facility] [address] [id number] [place] [address] Mar, [facility] [place] [facility] [address] [id number] [place] [address] Mar, [facility] [place] [facility] [address] [id number] [place] [address] February, [facility] [place] [facility] [address] [id number] [place] [address] February, [facility] [place] [facility] [address] [id number] [place] [address] Jan, [facility] [place] [facility] [address] [id number] [place] [address] 18 Jan, 2012 [facility] [place] [facility] [address] [id number] [place] [address] Jan, [facility] [place] [facility] [address] [id number] [place] [address] 29 Dec, 2011 [facility] [place] [facility] [address] [id number] [place] [address] Dec, [facility] [place] [facility] [address] [id number] [place] [address] Dec, [facility] [place] [facility] [address] [id number] [place] [address] Dec, [facility] [place] [facility] [address] [id number] [place] [address] Nov, [facility] [place] [facility] [address] [id number] [place] [address] Nov, [facility] [place] [facility] [address] [id number] [place] [address] Nov, [facility] [place] [facility] [address] [id number] [place] [address] 16 Nov, 2011 [facility] [place] [facility] [address] [id number] [place] [address] Nov, [facility] [place] [facility] [address] [id number] [place] [address] Nov, [facility] [place] [facility] [address] [id number] [place] [address] Nov, [facility] [place] [facility] [address] [id number] [place] [address] Oct, [facility] [place] [facility] [address] [id number] [place] [address] Oct, [facility] [place] [facility] [address] [id number] [place] [address] Oct, [facility] [place] [facility] [address] [id number] [place] [address] Oct, [facility] [place] [facility] [address] [id number] [place] [address] Oct, [facility] [place] [facility] [address] [id number] [place] [address] Oct, [facility] [place] [facility] [address] [id number] [place] [address] Oct, [facility] [place] [facility] [address] [id number] [place] [address] 05 Oct, 2011 [facility] [place] [facility] [address] [id number] [place] [address] Sep, [facility] [place] [facility] [address] [id number] [place] [address] Sep, [facility] [place] [facility] [address] [id number] [place] [address] Sep, [facility] [place] [facility] [address] [id number] [place] [address] Sep, [facility] [place] [facility] [address] [id number] [place] [address] Aug, [facility] [place] [facility] [address] [id number] [place] [address] Aug, [facility] [place] [facility] [address] [id number] [place] [address] Aug, [facility] [place] [facility] [address] [id number] [place] [address] Jul, [facility] [place] [facility] [address] [id number] [place] [address] Jul, [facility] [place] [facility] [address] [id number] [place] [address] Jul, [facility] [place] [facility] [address] [id number] [place] [address] Oct, [facility] [place] [facility] [address] [id number] [address] Aug, [facility] [place] [facility] [address] [id number] [place] [address] 16 Aug, 2010 [facility] [place] [facility] [address] [id number] [place] [address] 30 Sep, 2009 [facility] [place] [facility] [address] [id number], [place] [address] Sep, [facility] [place] [facility] [address] [id number] [place] [address] Sep, [facility] [address] [id number] [place] [address] Jan, IMMUNIZATIONS No Known Immunizations SOCIAL HISTORY Never Assessed REASON FOR VISIT f/u PLAN OF CARE Activity Details Follow Up 2 Weeks Reason: VITAL SIGNS MEDICATIONS Unknown Medications RESULTS No Results PROCEDURES Procedure Date Ordered Result Body Site Psychotherapy, patient &/family, 45 minutes, established patient April 02, 2018 INSTRUCTIONS MEDICATIONS ADMINISTERED No Known Medications [...]
--- OUTSIDE RECORDS SUMMARY | 2018-08-05 07:55 | XMS REPORT ---
Author Author GAMAL CLARK Organization [facility] Address [address] [place] [address] Care Team Providers Care Finishing Operator Name Role Phone GAMAL CLARK Unavailable PROBLEMS Type Condition ICD9-CM Code MUP71-CQ Code Onset Dates Condition Status SNOMED Code Problem Rectal bleed K62.5 Active 30688144 Problem Dry eyes H04.123 Active 000938665 Problem Body mass index (BMI) of 40.0-44.9 in adult Z68.41 Active 401021087 Problem Sleep apnea in adult G47.33 Active 75899094 Problem Anal fissure K60.2 Active 71384056 Problem Chronic fatigue R53.82 Active 25836491 Problem Hypertension I10 Active 07573514 ALLERGIES No Information ENCOUNTERS Encounter Location Date Diagnosis [place] [id number] [place] [address] 26084- 5687 Jun, [place] [address] 48451- 7006 May, Hypertension I10 [place] [id number] [place] [address] 55468- 7785 May, Generalized anxiety disorder 300.02 [facility] [id number] [place] [address] 23237- 3507 Apr, Sleep apnea in adult G47.33 ; Hypertension I10 and Dry eyes H04.123 [facility] [id number] [place] [address] 24095- 2827 Apr, [facility] [id number] [place] [address] 53556- 6054 Apr, [facility] [id number] [place] [address] 67542- 8840 Apr, Generalized anxiety disorder 300.02 [facility] [id number] [place] [address] 33512- 4746 Apr, Generalized anxiety disorder F41.1 [facility] [id number] [place] [address] 35782- 2868 Apr, Left breast mass N63.20 [facility] [id number] [place] [address] 33347- 6038 Apr, Generalized anxiety disorder F41.1 [facility] [id number] [place] [address] 91614- 0359 Mar, Generalized anxiety disorder 300.02 [facility] [address] 66671- 5794 Mar, [facility] [id number] [place] [address] 07256- 2536 Mar, Generalized anxiety disorder 300.02 [facility] [address] 73939- 5631 Mar, Acute serous otitis media of left ear, recurrence not specified H65.02 ; Dizziness R42 and BMI 40.0-44.9, adult Z68.41 [place] [id number] [place] [address] 59091- 4907 February, Hypertension I10 [place] [id number] [place] [address] 92457- 9195 February, Visit for TB skin test Z11.1 ; Encounter for physical examination related to employment Z02.1 ; Hypertension I10 ; Generalized anxiety disorder F41.1 ; BMI 40.0-44.9, adult Z68.41 and Chronic fatigue R53.82 [place] [id number] [place] [address] 66369- 5071 February, Rectal bleeding K62.5 and BMI 40.0-44.9, adult Z68.41 [place] [id number] [place] [address] 36848- 5835 Jan, BMI 40.0-44.9, adult Z68.41 and Skin irritation R23.8 [facility] [address] 13124- 9352 Jan, Generalized anxiety disorder F41.1 [facility] [address] 79232- 8729 Dec, [facility] [address] 33143- 6751 Nov, Body mass index (BMI) of 40.0-44.9 in adult Z68.41 ; Hypertension I10 and Seasonal allergic rhinitis, unspecified trigger J30.2 [facility] [address] 26567- 7482 Nov, Hypertension I10 [place] [address] 59902- 6231 Nov, Generalized anxiety disorder 300.02 [facility] [address] 25577- 5934 Nov, [facility] [address] 42035- 8975 Oct, [facility] [address] 63803- 6939 Oct, [facility] [address] 25465- 6947 Oct, Acute chest wall pain R07.89 [facility] [id number] [place] [address] 23755- 5143 Oct, [facility] [address] 05686- 3386 Sep, Left breast mass N63.20 [facility] [address] 84976- 8624 Sep, Left breast mass N63.20 [facility] [address] [place] [address]- 2790 Aug, Hypertension I10 [facility] [id number] [place] [address] 25874- 3330 Aug, Generalized anxiety disorder 300.02 [facility] [id number] [place] [address] 07074- 8371 Jul, Generalized anxiety disorder 300.02 [facility] [address] 63475- 8647 Jul, Sleep apnea in adult G47.33 [facility] [address] 38240- 5060 Jul, Hypertension I10 ; Sleep apnea in adult G47.33 ; Body mass index (BMI) of 40.0-44.9 in adult Z68.41 ; Morbid (severe) obesity due to excess calories E66.01 and Female hirsutism L68.0 [facility] [address] 43760- 5650 Jul, Generalized anxiety disorder 300.02 [facility] [address] 51464- 5327 Jul, Generalized anxiety disorder 300.02 [facility] [id number] [place] [address] 42640 -0894 Jun, Chronic fatigue R53.82 [facility] [id number] [place] [address] 75806- 4224 Jun, Generalized anxiety disorder F41.1 [facility] [id number] [place] [address] 81400- 4633 May, Generalized anxiety disorder 300.02 [facility] [address] 39948- 1850 Apr, Generalized anxiety disorder F41.1 ; Hypertension I10 ; Hyperlipidemia E78.5 ; Female hirsutism L68.0 and Sleep apnea in adult G47.33 [facility] [address] [place] [address]- 1109 Mar, Hypertension I10 and Generalized anxiety disorder F41.1 [place] [address] 64377- 9803 Mar, [facility] [address] 32446- 7658 February, Hypertension I10 and Generalized anxiety disorder F41.1 [place] [address] 71790- 7020 February, Generalized anxiety disorder 300.02 [facility] [address] 88389 -7005 February, Pelvic pain R10.2 and Painful bladder spasm R30.1 [place] [address] 75149- 4562 Jan, Generalized anxiety disorder 300.02 [place] [address] 23253- 6277 Dec, Obesity, unspecified E66.9 ; Generalized anxiety disorder F41.1 and Hypertension I10 [place] [address] 65424- 9651 15 Nov, 2016 Generalized anxiety disorder F41.1 ; Hypertension I10 ; Depression F32.9 and Obesity, unspecified E66.9 [place] [address] 06969- 4989 Nov, Generalized anxiety disorder 300.02 [facility] [address] 62284- 2181 Oct, [place] [address] 49185- 8857 Sep, History of pneumonia Z87.01 ; Hypokalemia E87.6 ; Hypertension I10 and Encounter for immunization Z23 [place] [address] 39598- 0000 Jul, [place] [address] [address] 3802 Apr, Hypertension I10 ; Hypercholesteremia E78.0 ; Obesity, unspecified E66.9 ; Anxiety F41.9 and Lumbago M54.5 [facility] [address] [place] [address] 99457- 1449 Apr, Depression F32.9 [place] [id number] [place] [address] 62385- 5804 Mar, Essential (primary) hypertension I10 [place] [id number] [address] Jan [facility] [id number] [place] [address] 70068- 0716 Dec, [facility] [id number] [place] [address] 40855- 0365 Dec, Generalized anxiety disorder F41.1 and Hypertension I10 [facility] [id number] [place] [address] 97679- 0394 Dec, [place] [id number] [place] [address] 33355- 0710 Dec, Abdominal pain R10.9 [place] [id number] [place] [address] 41554- 0212 Dec, Left sided abdominal pain of unknown cause R10.30 [facility] [id number] [place] [address] 05058- 8038 Nov, Generalized anxiety disorder 300.02 [facility] [id number] [place] [address] 71641- 2573 Nov, Female hirsutism L68.0 ; Hypertension I10 ; Hyperlipidemia E78.5 ; Depression F32.9 and Anxiety F41.9 [facility] [address] [place] [address] 71833- 4835 Oct, [facility] [id number] [place] [address] 68221- 7333 Oct, [facility] [id number] [place] [address] 68381- 7886 Oct, [facility] [id number] [place] [address] 37548- 8964 Oct, [place] [id number] [place] [address] 66530- 7797 Oct, Well woman exam Z01.419 ; Encounter [...] unspecified obesity severity, unspecified obesity type E66.9 [place] [id number] [place] [address] 64182- 3032 Jun, Generalized anxiety disorder 300.02 [place] [id number] [place] [address] 75560- 4999 Jun, Chest pain 786.50 ; Hypertension 401.9 ; Hyperlipemia 272.4 and Obesity 278.00 [place] [id number] [place] [address] 60476- 9690 Apr, Generalized anxiety disorder 300.02 [facility] [id number] [place] [address] 34845- 9155 Apr, Generalized anxiety disorder 300.02 [facility] [id number] [place] [address] 16717- 5415 Apr, [facility] [id number] [place] [address] 33601- 2236 Apr, [facility] [id number] [place] [address] 86052- 5761 Apr, Abdominal pain 789.00 ; Dehydration 276.51 ; Generalized anxiety disorder 300.02 ; Other and unspecified bipolar disorders 296.89 ; Obesity, unspecified 278.00 ; Family history of hypercholesterolemia V18.19 ; Diarrhea 787.91 ; Sleep apnea in adult 327.23 and Essential hypertension 401.9 [facility] [id number] [address]- 7754 Mar, Generalized anxiety disorder 300.02 [facility] [address] 75454- 2189 February, [facility] [id number] [place] [address] 21106- 7559 Jan, [facility] [id number] [place] [address] 43104- 8108 Jan, [facility] [id number] [place] [address] 983765- 3535 Oct, [facility] [id number] [place] [address] 06934- 7609 Oct, [facility] [id number] [place] [address] 07587- 9205 Oct, [facility] [id number] [place] [address] 77379- 4392 Oct, [facility] [id number] [place] [address] 40603- 8506 Sep, [facility] [id number] [place] [address] 61063- 5798 Sep, [facility] [id number] [place] [address] 033672- 4971 Sep, [facility] [id number] [place] [address] 960046- 9255 Sep, [facility] [id number] [place] [address] 35974- 6793 Sep, [facility] [id number] [place] [address] 28636- 7326 Sep, [facility] [place] [facility] [address] [id number] [place] [address]- 2160 Sep, [facility] [place] [facility] [address] [id number] [place] [address]- 2466 Aug, [facility] [place] [facility] [address] [id number] [place] [address]- 1181 Aug, [facility] [place] [facility] [address] [id number] [place] [address]- 2262 Aug, [facility] [place] [facility] [address] [id number] [place] [address]- 2941 Aug, [facility] [place] [facility] [address] [id number] [place] 6185 Jul, [facility] [place] [facility] [address] [id number] [place] [address]- 9655 Jul, [facility] [place] [facility] [address] [id number] [place] [address]- 1380 Jul, [facility] [place] [facility] [address] [id number] [place] [address]- 3133 Jul, [facility] [place] [facility] [address] [id number] [place] [address]- 1060 Jul, [facility] [place] [facility] [address] [id number] 8204 Jul, [facility] [place] [facility] [address] [id number] [address]- 8170 Jul, [facility] [place] [facility] [address] [id number] [place] [address]- 5513 Jul, [facility] [place] [facility] [address] [id number] [place] [address]- 5125 Jun, [facility] [place] [facility] [address] [id number] [place] [address]- 9006 Jun, [facility] [place] [facility] [address] [id number] [place] [address]- 4042 15 Sep, 2013 [facility] [place] [facility] [address] [id number] [place] [address]- 8371 15 Sep, 2013 [facility] [place] [facility] [address] [id number] [place] [address]- 5724 09 Sep, 2013 [facility] [place] [facility] [address] [id number] [place] [address]- 2500 09 Sep, 2013 [facility] [place] [facility] [address] [id number] [place] [address]- 7802 04 Sep, 2013 [facility] [place] [facility] [address] [id number] [place] [address]- 8755 04 Sep, 2013 [facility] [place] [facility] [address] [id number] [place] [address]- 4306 02 Sep, 2013 [facility] [place] [facility] [address] [id number] [place] [address]- 6090 02 Sep, 2013 [facility] [place] [facility] [address] [id number] [place] [address]- 7629 02 Sep, 2013 [facility] [place] [facility] [address] [id number] [place] [address]- 5561 02 Jun, 2013 [facility] [place] [facility] [address] [id number] [place] [address]- 5243 02 Sep, 2013 [facility] [place] [facility] [address] [id number] [place] [address]- 2547 Jun, 2013 [facility] [place] [facility] [address] [id number] [place] [address]- 2547 Jun, 2013 [facility] [place] [facility] [address] [id number] [place] [address]- 6246 Jun, 2013 [facility] [place] [facility] [address] [id number] [place] [address]- 6061 May, [facility] [place] [facility] [address] [id number] [place] [address]- 6080 May, [facility] [place] [facility] [address] [id number] [place] [address]- 1457 Apr, [facility] [place] [facility] [address] [id number] [place] [address]- 9283 Apr, [facility] [place] [facility] [address] [id number] [place] [address]- 7179 Apr, [facility] [place] [facility] [address] [id number] [place] [address]- 5031 Apr, [facility] [place] [facility] [address] [id number] [place] [address]- 5877 Apr, [facility] [place] [facility] [address] [id number] [place] [address]- 4546 Apr, [facility] [place] [facility] [address] [id number] [place] [address]- 8174 Apr, [facility] [place] [facility] [address] [id number] [place] [address]- 1965 Apr, [facility] [place] [facility] [address] [id number] [place] [address]- 9958 Apr, [facility] [place] [facility] [address] [id number] [place] [address]- 5769 Apr, [facility] [place] [facility] [address] [id number] [place] [address]- 4387 Apr, [facility] [place] [facility] [address] [id number] [place] [address]- 0703 Apr, [facility] [place] [facility] [address] [id number] [place] [address]- 9429 Apr, [facility] [place] [facility] [address] [id number] [place] [address]- 3605 Apr, [facility] [place] [facility] [address] [id number] [place] [address]- 4585 Apr, [facility] [place] [facility] [address] [id number] [place] [address]- 2636 Apr, [facility] [place] [facility] [address] [id number] [place] [address]- 7390 Apr, [facility] [place] [facility] [address] [id number] [place] [address]- 8522 Apr, [facility] [place] [facility] [address] [id number] [place] [address]- 9668 Apr, [facility] [place] [facility] [address] [id number] [place] [address]- 3614 Apr, [facility] [place] [facility] [address] [id number] [place] [address]- 1175 Mar, [facility] [place] [facility] [address] [id number] [place] [address]- 6258 Mar, [facility] [place] [facility] [address] [id number] [place] [address]- 5925 February, [facility] [place] [facility] [address] [id number] [place] [address]- 3494 February, [facility] [place] [facility] [address] [id number] [place] [address]- 6131 Jan, [facility] [place] [facility] [address] [id number] [place] [address]- 2386 Jan, [facility] [place] [facility] [address] [id number] [place] [address]- 3663 Jan, [facility] [place] [facility] [address] [id number] [place] [address]- 7063 Jan, [facility] [place] [facility] [address] [id number] [place] [address]- 0276 Dec, [facility] [place] [facility] [address] [id number] [place] [address]- 4477 Dec, [facility] [place] [facility] [address] [id number] [place] [address]- 9572 Oct, [facility] [place] [facility] [address] [id number] [place] [address]- 3564 Oct, [facility] [place] [facility] [address] [id number] [place] [address]- 9832 Oct, [facility] [place] [facility] [address] [id number] [place] [address]- 2346 Oct, [facility] [place] [facility] [address] [id number] [place] [address]- 7180 Aug, [facility] [place] [facility] [address] [id number] [place] [address]- 5608 Aug, [facility] [place] [facility] [address] [id number] [place] [address]- 1341 Aug, [facility] [place] [facility] [address] [id number] [place] [address]- 2463 Aug, [facility] [place] [facility] [address] [id number] [place] [address]- 8736 Jul, [facility] [place] [facility] [address] [id number] [place] [address]- 8698 Jul, [facility] [place] [facility] [address] [id number] [place] [address]- 1576 Jul, [facility] [place] [facility] [address] [id number] [place] [address]- 5743 Jun, [facility] [place] [facility] [address] [id number] [place] [address]- 7558 May, [facility] [place] [facility] [address] [id number] [place] [address]- 2540 Apr, [facility] [place] [facility] [address] [id number] [place] [address]- 9726 Apr, [facility] [place] [facility] [address] [id number] [place] [address]- 2546 Apr, [facility] [place] [facility] [address] [id number] [place] [address]- 4445 Apr, [facility] [address] [id number] [place] [address]- 7357 Mar, [facility] [place] [facility] [address] [id number] [place] [address]- 7183 Mar, [facility] [place] [facility] [address] [id number] [place] [address]- 1242 Mar, [facility] [place] [facility] [address] [id number] [place] [address] Mar, [facility] [place] [facility] [address] [id number] [place] [address] February, [facility] [place] [facility] [address] [id number] [place] [address] February, [facility] [place] [facility] [address] [id number] [place] [address] February, [facility] [place] [facility] [address] [id number] [place] [address] February, [facility] [place] [facility] [address] [id number] [place] [address] February, [facility] [place] [facility] [address] [id number] [place] [address] Jan, [facility] [place] [facility] [address] [id number] [place] [address] Dec, [facility] [place] [facility] [address] [id number] [place] [address] Nov, [facility] [place] [facility] [address] [id number] [place] [address] Nov, [facility] [place] [facility] [address] [id number] [place] [address] Nov, [facility] [place] [facility] [address] [id number] [place] [address] Oct, [facility] [place] [facility] [address] [id number] [place] [address] Oct, [facility] [address] [id number] [place] [address] Oct, [facility] [address] [id number] [place] [address] Oct, [facility] [address] [id number] [place] [address] Oct, [facility] [address] [id number] [place] [address] Oct, [facility] [address] [id number] [place] [address] Sep, [facility] [address] [id number] [place] [address] Sep, [facility] [address] [id number] [place] [address] Sep, [facility] [address] [id number] [place] [address] Sep, [facility] [address] [id number] [place] [address] Aug, [facility] [address] [facility] [id number] [place] [address] Aug, [facility] [address] [id number] [place] [address] Aug, [facility] [address] [id number] [place] [address] Aug, [facility] [place] [facility] [address] [id number] [place] [address] Aug, [facility] [place] [facility] [address] [id number] [place] [address] Aug, [facility] [address] [id number] [place] [address]- [address] Jul, [facility] [place] [facility] [address] [id number] [place] [address] Jul, [facility] [place] [facility] [address] [id number] [place] [address] Jul, [facility] [place] [facility] [address] [id number] [place] [address] Jul, [facility] [place] [facility] [address] [id number] [place] [address]- [address] Jul, [facility] [place] [facility] [address] [id number] [place] [address] Jul, [facility] [place] [facility] [address] [id number] [place] [address] Jul, [facility] [place] [facility] [address] [id number] [place] [address] Jul, [facility] [place] [facility] [address] [id number] [place] [address] Jul, [facility] [place] [facility] [address] [id number] [place] [address] Jul, [facility] [place] [facility] [address] [id number] [place] [address] 26 Jun, 2012 [facility] [place] [facility] [address] [id number] [place] [address] 14 Jun, 2012 [facility] [place] [facility] [address] [id number] [place] [address] 12 Jun, 2012 [facility] [place] [facility] [address] [id number] [place] [address] May, [facility] [place] [facility] [address] [id number] [place] [address] May, [facility] [place] [facility] [address] [id number] [place] [address] May, [facility] [place] [facility] [address] [id number] [place] [address] May, [facility] [place] [facility] [address] [id number] [place] [address] Apr, [facility] [place] [facility] [address] [id number] [place] [address] Apr, [facility] [place] [facility] [address] [id number] [place] [address] Apr, [facility] [place] [facility] [address] [id number] [place] [address] Apr, [facility] [place] [facility] [address] [id number] [place] [address] Mar, [facility] [place] [facility] [address] [id number] [place] [address] Mar, [facility] [place] [facility] [address] [id number] [place] [address] Mar, [facility] [place] [facility] [address] [id number] [place] [address] February, [facility] [place] [facility] [address] [id number] [place] [address] February, [facility] [place] [facility] [address] [id number] [place] [address] Jan, [facility] [place] [facility] [address] [id number] [place] [address] Jan, [facility] [place] [facility] [address] [id number] [place] [address] Jan, [facility] [place] [facility] [address] [id number] [place] [address] 29 Dec, 2011 [facility] [place] [facility] [address] [id number] [place] [address] Dec, [facility] [place] [facility] [address] [id number] [place] [address] Dec, [facility] [place] [facility] [address] [id number] [place] [address] Dec, [facility] [place] [facility] [address] [id number] [place] [address] 29 Nov, 2011 [facility] [place] [facility] [address] [id number] [place] [address] Nov, [facility] [place] [facility] [address] [id number] [place] [address] Nov, [facility] [place] [facility] [address] [id number] [place] [address] 16 Nov, 2011 [facility] [place] [facility] [address] [id number] [place] [address] Nov, [facility] [place] [facility] [address] [id number] [place] [address] Nov, [facility] [place] [facility] [address] [id number] [place] [address] Nov, [facility] [place] [facility] [address] [id number] [place] [address] Oct, [facility] [place] [facility] [address] [id number] [place] [address] Oct, [facility] [place] [facility] [address] [id number] [place] [address] Oct, [facility] [place] [facility] [address] [id number] [place] [address] Oct, [facility] [place] [facility] [address] [id number] [place] [address] Oct, [facility] [place] [facility] [address] [id number] [place] [address] Oct, [facility] [place] [facility] [address] [id number] [place] [address] Oct, [facility] [place] [facility] [address] [id number] [place] [address] Oct, [facility] [place] [facility] [address] [id number] [place] [address] Sep, [facility] [place] [facility] [address] [id number] [place] [address] Sep, [facility] [place] [facility] [address] [id number] [place] [address] Sep, [facility] [place] [facility] [address] [id number] [place] [address] Sep, [facility] [place] [facility] [address] [id number] [place] [address] Aug, [facility] [place] [facility] [address] [id number] [place] [address] Aug, [facility] [place] [facility] [address] [id number] [place] [address] Aug, [facility] [place] [facility] [address] [id number] [place] [address] Jul, [facility] [place] [facility] [address] [id number] [place] [address] Jul, [facility] [place] [facility] [address] [id number] [place] [address] Jul, [facility] [place] [facility] [address] [id number] [place] [address] Oct, [facility] [place] [facility] [address] [id number] [place] [address] Aug, [facility] [place] [facility] [address] [id number] [place] [address] Aug, [facility] [place] [facility] [address] [id number] [place] [address] 30 Sep, 2009 [facility] [place] [facility] [address] [id number] [place] [address] Sep, [facility] [place] [facility] [address] [facility] [id number] [place] [address] Sep, [facility] [address] [facility] [id number] [place] [address] Jan, IMMUNIZATIONS No Known Immunizations SOCIAL HISTORY [...]
--- OUTSIDE RECORDS SUMMARY | 2018-08-05 07:56 | XMS REPORT ---
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 Name Role Phone GAMAL CLARK Unavailable PROBLEMS Type Condition ICD9-CM Code QIZ49-GD Code Onset Dates Condition Status SNOMED Code Problem Rectal bleed K62.5 Active 96955748 Problem Dry eyes H04.123 Active 446112158 Problem Body mass index (BMI) of 40.0-44.9 in adult Z68.41 Active 792225190 Problem Sleep apnea in adult G47.33 Active 04568662 Problem Anal fissure K60.2 Active 30475328 Problem Chronic fatigue R53.82 Active 08557431 Problem Hypertension I10 Active 76887614 ALLERGIES Substance Reaction Event Type Date Status Amoxicillin Unknown Drug Allergy Nov, Active ENCOUNTERS Encounter Location Date Diagnosis [facility] [id number] [place] [address] 02450- 9342 Jun, [facility] [id number] [place] [address] 28095- 0697 May, [facility] [id number] [place] [address] 41151- 5787 May, Generalized anxiety disorder 300.02 [facility] [address] 52785- 7419 Apr, Sleep apnea in adult G47.33 ; Hypertension I10 and Dry eyes H04.123 [facility] [address] 42677- 8108 Apr, [facility] [id number] [place] [address] 22605- 0066 Apr, [facility] [address] 02010- 1915 Apr, Generalized anxiety disorder 300.02 [facility] [id number] [place] [address] 72552- 9066 Apr, Generalized anxiety disorder F41.1 [facility] [id number] [place] [address] 00148- 4983 Apr, Left breast mass N63.20 [facility] [address] 10533- 0134 Apr, Generalized anxiety disorder F41.1 [facility] [id number] [place] [address] 04754- 1636 Mar, Generalized anxiety disorder 300.02 [facility] [id number] [place] [address] 23818- 3474 Mar, [facility] [id number] [place] [address] 64382- 3556 Mar, Generalized anxiety disorder 300.02 [facility] [id number] [place] [address] 57684- 2911 Mar, Acute serous otitis media of left ear, recurrence not specified H65.02 ; Dizziness R42 and BMI 40.0-44.9, adult Z68.41 [facility] [id number] [place] [address] 47535- 5311 February, Hypertension I10 [facility] [id number] [place] [address] 81926- 7882 February, Visit for TB skin test Z11.1 ; Encounter for physical examination related to employment Z02.1 ; Hypertension I10 ; Generalized anxiety disorder F41.1 ; BMI 40.0-44.9, adult Z68.41 and Chronic fatigue R53.82 [facility] [id number] [place] [address] 04229- 6607 February, Rectal bleeding K62.5 and BMI 40.0-44.9, adult Z68.41 [facility] [id number] [place] [address] 01739- 7049 Jan, BMI 40.0-44.9, adult Z68.41 and Skin irritation R23.8 [facility] [address] 09243- 8540 Jan, Generalized anxiety disorder F41.1 [facility] [address] 23243- 4353 Dec, [facility] [address] 03374- 0356 Nov, Body mass index (BMI) of 40.0-44.9 in adult Z68.41 ; Hypertension I10 and Seasonal allergic rhinitis, unspecified trigger J30.2 [facility] [address] 31771- 3531 Nov, Hypertension I10 [facility] [address] 36637- 5307 Nov, Generalized anxiety disorder 300.02 [facility] [address] 55660- 4445 Nov, [facility] [address] 20367- 5963 Oct, [facility] [id number] [place] [address] 60302- 0110 Oct, [facility] [address] 06299- 3836 Oct, Acute chest wall pain R07.89 [facility] [id number] [place] [address] 70377- 3175 Oct, [facility] [address] 12685- 8770 Sep, Left breast mass N63.20 [facility] [id number] [place] [address] 68053- 3529 Sep, Left breast mass N63.20 [facility] [id number] [place] [address] 03914- 4479 Aug, Hypertension I10 [facility] [address] 62693- 7772 Aug, Generalized anxiety disorder 300.02 [facility] [id number] [place] [address] 26838- 5782 Jul, Generalized anxiety disorder 300.02 [facility] [id number] [place] [address] 52314- 5958 Jul, Sleep apnea in adult G47.33 [facility] [id number] [place] [address] 40608- 0858 Jul, Hypertension I10 ; Sleep apnea in adult G47.33 ; Body mass index (BMI) of 40.0-44.9 in adult Z68.41 ; Morbid (severe) obesity due to excess calories E66.01 and Female hirsutism L68.0 [facility] [id number] [place] [address] 72750- 7390 Jul, Generalized anxiety disorder 300.02 [facility] [id number] [place] [address] 48149- 8544 Jul, Generalized anxiety disorder 300.02 [facility] [id number] [place] [address] 50729 -9607 Jun, Chronic fatigue R53.82 [facility] [id number] [place] [address] 89461- 9556 Jun, Generalized anxiety disorder F41.1 [facility] [id number] [place] [address] 14161- 3386 May, Generalized anxiety disorder 300.02 [facility] [id number] [place] [address] 16754- 7754 Apr, Generalized anxiety disorder F41.1 ; Hypertension I10 ; Hyperlipidemia E78.5 ; Female hirsutism L68.0 and Sleep apnea in adult G47.33 [facility] [id number] [place] [address] 60235- 6323 Mar, Hypertension I10 and Generalized anxiety disorder F41.1 [facility] [id number] [place] [address] 14389- 0363 Mar, [facility] [id number] [place] [address] 61745- 8819 February, Hypertension I10 and Generalized anxiety disorder F41.1 [facility] [address] 64932- 5566 February, Generalized anxiety disorder 300.02 [facility] [address] 81565 -0344 February, Pelvic pain R10.2 and Painful bladder spasm R30.1 [facility] [address] 85242- 8440 Jan, Generalized anxiety disorder 300.02 [facility] [address] 81696- 4059 Dec, Obesity, unspecified E66.9 ; Generalized anxiety disorder F41.1 and Hypertension I10 [facility] [id number] [place] [address] 85591- 6587 15 Nov, 2016 Generalized anxiety disorder F41.1 ; Hypertension I10 ; Depression F32.9 and Obesity, unspecified E66.9 [facility] [id number] [place] [address] 19896- 1271 Nov, Generalized anxiety disorder 300.02 [facility] [id number] [place] [address] 32416- 4001 Oct, [facility] [id number] [place] [address] 91450- 4753 Sep, History of pneumonia Z87.01 ; Hypokalemia E87.6 ; Hypertension I10 and Encounter for immunization Z23 [facility] [address] 84658- 3231 Jul, [facility] [address] [place] [address] 95118- 5153 Apr, Hypertension I10 ; Hypercholesteremia E78.0 ; Obesity, unspecified E66.9 ; Anxiety F41.9 and Lumbago M54.5 [facility] [id number] [place] [address] 26487- 7681 Apr, Depression F32.9 [facility] [id number] [place] [address] 51928- 9805 Mar, Essential (primary) hypertension I10 [id number] [address] Jan [facility] [id number] [place] [address] 52285- 3698 Dec, [facility] [id number] [place] [address] 36558- 1328 Dec, Generalized anxiety disorder F41.1 and Hypertension I10 [facility] [id number] [place] [address] 76136- 4916 Dec, [facility] [id number] [place] [address] 99154- 5394 Dec, Abdominal pain R10.9 [facility] [id number] [place] [address] 26055- 6588 Dec, Left sided abdominal pain of unknown cause R10.30 [facility] [id number] [place] [address] 99074- 7824 Nov, Generalized anxiety disorder 300.02 [facility] [address] 20065- 3652 Nov, Female hirsutism L68.0 ; Hypertension I10 ; Hyperlipidemia E78.5 ; Depression F32.9 and Anxiety F41.9 [facility] [id number] [place] [address] 50616- 6182 Oct, [facility] [address] [address]- 9736 Oct, [facility] [id number] [place] [address] 13191- 3745 Oct, [facility] [address] [place] [address] 20170- 2023 Oct, [facility] [id number] [place] [address] 73726- 4567 Oct, Well woman exam Z01.419 ; Encounter [...] obesity type E66.9 [facility] [id number] [place] [address] 03211- 7417 Jun, Generalized anxiety disorder 300.02 [facility] [id number] [place] [address] 14241- 6129 Jun, Chest pain 786.50 ; Hypertension 401.9 ; Hyperlipemia 272.4 and Obesity 278.00 [place] [address] [place] [address] 02087- 1487 Apr, Generalized anxiety disorder 300.02 [facility] [id number] [place] [address] 81527- 9683 Apr, Generalized anxiety disorder 300.02 [facility] [id number] [place] [address] 43944- 8685 Apr, [facility] [id number] [place] [address] 81937- 0525 Apr, [facility] [id number] [place] [address] 99110- 3508 Apr, Abdominal pain 789.00 ; Dehydration 276.51 ; Generalized anxiety disorder 300.02 ; Other and unspecified bipolar disorders 296.89 ; Obesity, unspecified 278.00 ; Family history of hypercholesterolemia V18.19 ; Diarrhea 787.91 ; Sleep apnea in adult 327.23 and Essential hypertension 401.9 [facility] [address] [address]- 4547 Mar, Generalized anxiety disorder 300.02 [facility] [id number] [place] [address] 266345- 6013 February, [facility] [id number] [place] [address] 45949- 2616 Jan, [facility] [id number] [place] [address] 04082- 8675 Jan, [facility] [id number] [place] [address] 12064- 9350 Oct, [facility] [id number] [place] [address] 97795- 0798 Oct, [facility] [address] [address]- 8196 Oct, [facility] [id number] [address]- 7405 Oct, [facility] [address] [address]- 8149 Sep, [facility] [address] [address]- 6410 Sep, [facility] [address] 9171 Sep, [facility] [address] [address]- 5021 Sep, [facility] [address] [address]- 6999 Sep, [facility] [id number] [place] [address]- 2085 Sep, [facility] [place] [facility] [address] [id number] [place] [address]- 8638 Sep, [facility] [place] [facility] [address] [id number] [place] [address]275 Aug, [facility] [place] [facility] [address] [id number] [place] [address]- 5275 Aug, [facility] [place] [facility] [address] [id number] [place] [address]- 9036 Aug, [facility] [place] [facility] [address] [id number] [place] [address]- 9248 Aug, [facility] [place] [facility] [address] [id number] [place] [address]- 4936 Jul, [facility] [place] [facility] [address] [id number] [place] [address]- 0622 Jul, [facility] [place] [facility] [address] [id number] [place] [address]- 3769 Jul, [facility] [place] [facility] [address] [id number] [place] [address]- 1844 Jul, [facility] [place] [facility] [address] [id number] [place] [address]- 7906 Jul, [facility] [place] [facility] [address] [id number] [place] [address]- 6906 Jul, [facility] [place] [facility] [address] [id number] [place] [address]- 7965 Jul, [facility] [place] [facility] [address] [id number] [place] [address]- 2753 Jul, [facility] [place] [facility] [address] [id number] [place] [address]- 0288 Jun, [facility] [place] [facility] [address] [id number] [place] [address]- 2546 16 Sep, 2013 [facility] [place] [facility] [address] [id number] [place] [address]- 2709 15 Sep, 2013 [facility] [place] [facility] [address] [id number] [place] [address]- 5292 15 Sep, 2013 [facility] [place] [facility] [address] [id number] [place] [address]- 1923 09 Sep, 2013 [facility] [place] [facility] [address] [id number] [place] [address]- 4612 09 Sep, 2013 [facility] [place] [facility] [address] [id number] [place] [address]- 9294 04 Sep, 2013 [facility] [place] [facility] [address] [id number] [place] [address]- 3304 04 Sep, 2013 [facility] [place] [facility] [address] [id number] [place] [address]- 1429 02 Sep, 2013 [facility] [place] [facility] [address] [id number] [place] [address]- 7461 02 Sep, 2013 [facility] [place] [facility] [address] [id number] [place] [address]- 0854 02 Sep, 2013 [facility] [place] [facility] [address] [id number] [place] [address]- 7368 02 Sep, 2013 [facility] [place] [facility] [address] [id number] [place] [address]- 5812 02 Sep, 2013 [facility] [place] [facility] [address] [id number] [address]- 2728 02 Sep, 2013 [facility] [place] [facility] [address] [id number] [place] [address]- 2541 02 Sep, 2013 [facility] [place] [facility] [address] [id number] [place] [address]- 2549 02 Sep, 2013 [facility] [place] [facility] [address] [id number] [place] [address]- 7398 18 May, 2013 [facility] [place] [facility] [address] [id number] [place] [address]- 6265 May, [facility] [place] [facility] [address] [id number] [place] [address]- 6643 Apr, 2013 [facility] [place] [facility] [address] [id number] [place] [address]- 9879 Apr, 2013 [facility] [place] [facility] [address] [id number] [place] [address]- 2265 Apr, 2013 [facility] [place] [facility] [address] [id number] [place] [address]- 5172 Apr, 2013 [facility] [place] [facility] [address] [id number] [place] [address]- 7359 Apr, [facility] [place] [facility] [address] [id number] [place] [address]- 3824 Apr, 2013 [facility] [place] [facility] [address] [id number] [place] [address]- 1938 Apr, [facility] [place] [facility] [address] [id number] [place] [address]- 0628 Apr, [facility] [place] [facility] [address] [id number] [place] [address]- 8277 Apr, [facility] [place] [facility] [address] [id number] [place] [address]- 8891 Apr, [facility] [place] [facility] [address] [id number] [place] [address]- 2939 Apr, 2013 [facility] [place] [facility] [address] [id number] [place] [address]- 2847 Apr, [facility] [place] [facility] [address] [id number] [place] [address]- 5912 Apr, [facility] [place] [facility] [address] [id number] [place] [address]- 9221 Apr, 2013 [facility] [place] [facility] [address] [id number] [place] [address]- 2137 Apr, 2013 [facility] [place] [facility] [address] [id number] [place] [address]- 8427 Apr, [facility] [place] [facility] [address] [id number] [place] [address]- 3450 Apr, [facility] [place] [facility] [address] [id number] [place] [address]- 6469 Apr, [facility] [place] [facility] [address] [id number] [place] [address]- 5189 Apr, [facility] [place] [facility] [address] [id number] [place] [address]- 9708 Apr, [facility] [place] [facility] [address] [id number] [place] [address]- 4066 Mar, [facility] [place] [facility] [address] [id number] [place] [address]- 4897 Mar, [facility] [place] [facility] [address] [id number] [place] [address]- 0583 February, [facility] [place] [facility] [address] [id number] [place] [address]- 3513 February, [facility] [place] [facility] [address] [id number] [place] [address]- 4202 Jan, [facility] [place] [facility] [address] [id number] [place] [address]- 3127 Jan, [facility] [place] [facility] [address] [id number] [place] [address]- 9773 Jan, [facility] [place] [facility] [address] [id number] [place] [address]- 1698 Jan, [facility] [place] [facility] [address] [id number] [place] [address]- 7948 Dec, [facility] [place] [facility] [address] [id number] [place] [address]- 4096 Dec, [facility] [place] [facility] [address] [id number] [place] [address]- 0263 Oct, [facility] [place] [facility] [address] [id number] [place] [address]- 1889 Oct, [facility] [place] [facility] [address] [id number] [place] [address]- 3484 Oct, [facility] [place] [facility] [address] [id number] [place] [address]- 8711 Oct, [facility] [place] [facility] [address] [id number] [place] [address]- 6198 Aug, [facility] [place] [facility] [address] [id number] [place] [address]- 9588 Aug, [facility] [place] [facility] [address] [id number] [place] [address]- 4313 Aug, [facility] [place] [facility] [address] [id number] [place] [address]- 0673 Aug, [facility] [place] [facility] [address] [id number] [place] [address]- 4402 Jul, [facility] [place] [facility] [address] [id number] [place] [address]- 6354 Jul, [facility] [place] [facility] [address] [id number] [place] [address]- 3501 Jul, [facility] [place] [facility] [address] [id number] [place] [address]- 9133 Jun, [facility] [place] [facility] [address] [id number] [address]- 7914 May, [facility] [place] [facility] [address] [id number] [place] [address]- 6600 Apr, [facility] [place] [facility] [address] [id number] [place] [address]- 2987 Apr, [facility] [place] [facility] [address] [id number] [place] [address]- 3438 Apr, [facility] [place] [facility] [address] [id number] [place] [address]- 4027 Apr, [facility] [address] [id number] [place] [address]- 5858 Mar, [facility] [place] [facility] [address] [id number] [place] [address]- 1748 Mar, [facility] [address] [id number] [place] [address]- 0075 Mar, [facility] [place] [facility] [address] [id number] [place] [address]- 0445 Mar, [facility] [address] [id number] [place] [address]- 5782 February, [facility] [place] [facility] [address] [id number] [place] [address]- 3752 February, [facility] [address] [id number] [place] [address]- 2467 February, [facility] [address] [id number] [place] [address]- 7131 February, [facility] [address] [id number] [place] [address] February, [facility] [address] [id number] [place] [address] Jan, [facility] [place] [facility] [address] [id number] [place] [address] Dec, [facility] [place] [facility] [address] [id number] [place] [address] Nov, [facility] [place] [facility] [address] [id number] [place] [address] Nov, [facility] [place] [facility] [address] [id number] [place] [address] Nov, [facility] [place] [facility] [address] [id number] [place] [address] Oct, [facility] [place] [facility] [address] [id number] [place] [address] Oct, [facility] [address] [id number] [place] [address] Oct, [facility] [address] [id number] [place] [address] Oct, [facility] [address] [id number] [place] [address] Oct, [facility] [address] [id number] [place] [address] Oct, [facility] [address] [id number] [place] [address] Sep, [facility] [address] [id number] [place] [address] Sep, [facility] [address] [id number] [place] [address] Sep, [facility] [address] [id number] [place] [address] Sep, [facility] [address] [id number] [place] [address] Aug, [facility] [address] [id number] [place] [address] Aug, [facility] [address] [id number] [place] [address] Aug, [facility] [place] [facility] [address] [id number] [place] [address] Aug, [facility] [place] [facility] [address] [id number] [place] [address] Aug, [facility] [address] [id number] [place] [address] Aug, [facility] [address] [id number] [place] [address] Jul, [facility] [place] [facility] [address] [id number] [place] [address] Jul, [facility] [place] [facility] [address] [id number] [place] [address] Jul, [facility] [place] [facility] [address] [id number] [place] [address] Jul, [facility] [place] [facility] [address] [id number] [place] [address] Jul, [facility] [place] [facility] [address] [id number] [place] [address] Jul, [facility] [place] [facility] [address] [id number] [place] [address] Jul, [facility] [place] [facility] [address] [id number] [place] [address] Jul, [facility] [place] [facility] [address] [id number] [place] [address] Jul, [facility] [place] [facility] [address] [id number] [place] [address] Jul, [facility] [place] [facility] [address] [id number] [place] [address] Jun, [facility] [place] [facility] [address] [id number] [place] [address] 14 Jun, 2012 [facility] [place] [facility] [address] [id number] [place] [address]- [address] 12 Jun, 2012 [facility] [place] [facility] [address] [id number] [place] [address] May, [facility] [place] [facility] [address] [id number] [place] [address] 16 May, 2012 [facility] [place] [facility] [address] [id number] [place] [address] May, [facility] [place] [facility] [address] [id number] [place] [address] May, [facility] [address] [id number] [place] [address] Apr, [facility] [place] [facility] [address] [id number] [place] [address] Apr, [facility] [address] [id number] [place] [address] Apr, [facility] [address] [id number] [place] [address] Apr, [facility] [address] [id number] [place] [address] Mar, [facility] [address] [id number] [place] [address] Mar, [facility] [address] [id number] [place] [address] Mar, [facility] [address] [id number] [place] [address] February, [facility] [address] [id number] [place] [address] February, [facility] [address] [id number] [place] [address] Jan, [facility] [place] [facility] [address] [id number] [place] [address] 18 Jan, 2012 [facility] [address] [id number] [place] [address] Jan, [facility] [place] [facility] [address] [id number] [place] [address] 29 Dec, 2011 [facility] [place] [facility] [address] [id number] [place] [address] 14 Dec, 2011 [facility] [place] [facility] [address] [id number] [place] [address] 14 Dec, 2011 [facility] [place] [facility] [address] [id number] [place] [address] 08 Dec, 2011 [facility] [place] [facility] [address] [id number] [place] [address] 29 Nov, 2011 [facility] [place] [facility] [address] [id number] [place] [address] Nov, [facility] [place] [facility] [address] [id number] [place] [address] 20 Nov, 2011 [facility] [place] [facility] [address] [id number] [place] [address] 16 Nov, 2011 [facility] [place] [facility] [address] [id number] [place] [address] Nov, [facility] [place] [facility] [address] [id number] [place] [address] Nov, [facility] [place] [facility] [address] [id number] [place] [address] Nov, [facility] [place] [facility] [address] [id number] [place] [address] Oct, [facility] [place] [facility] [address] [id number] [place] [address] Oct, [facility] [place] [facility] [address] [id number] [place] [address] Oct, [facility] [place] [facility] [address] [id number] [place] [address] 17 Oct, 2011 [facility] [place] [facility] [address] [id number] [place] [address] Oct, [facility] [place] [facility] [address] [id number] [place] [address] Oct, [facility] [place] [facility] [address] [id number] [place] [address] 05 Oct, 2011 [facility] [place] [facility] [address] [id number] [place] [address] 05 Oct, 2011 [facility] [address] [id number] [place] [address] Sep, [facility] [place] [facility] [address] [id number] [place] [address] Sep, [facility] [address] [id number] [place] [address] Sep, [facility] [place] [facility] [address] [id number] [place] [address] Sep, [facility] [address] [id number] [place] [address] Aug, [facility] [address] [id number] [place] [address] Aug, [facility] [address] [id number] [place] [address] Aug, [facility] [address] [id number] [place] [address] Jul, [facility] [address] [id number] [place] [address] Jul, [facility] [address] [facility] [id number] [place] [address] Jul, [facility] [address] [id number] [place] [address] Oct, [facility] [address] [id number] [place] [address] Aug, [facility] [place] [facility] [address] [id number] [place] [address] 16 Aug, 2010 [facility] [place] [facility] [address] [id number] [place] [address] 30 Sep, 2009 [facility] [place] [facility] [address] [id number] [place] [address] Sep, [facility] [address] [facility] [id number] [place] [address] Sep, [facility] [address] [facility] [id number] [place] [address] Jan, IMMUNIZATIONS No Known Immunizations SOCIAL HISTORY Never Assessed REASON FOR VISIT Transition of Care/ sinus problem since saturday -- abraham fulton PLAN OF CARE Activity Details Follow Up 6 Months Toro preston HTN Reason: VITAL SIGNS Height 64 in 2017-12-17 Weight 242.5 lbs 2017-12-17 Temperature 98.0 degrees Fahrenheit 2017-12-17 Heart Rate 78 bpm 2017-12-17 Respiratory Rate 18 2017-12-17 BMI 41.62 kg/m2 2017-12-17 Blood pressure systolic 122 mmHg 2017-12-17 Blood pressure diastolic 78 mmHg 2017-12-17 MEDICATIONS Medication Instructions Dosage Frequency Start Date End Date Duration Status BusPIRone HCl 15 mg Orally Once a day TAKE ONE-HALF TABLET BY MOUTH TWICE DAILY 24h 180 days Active Cymbalta 60 MG TAKE ONE CAPSULE BY MOUTH ONCE DAILY ALONG WITH CYMBALTA 30 MG 30 Active Probiotic Not-Taking Lorazepam 0.5 MG Orally 2 times a day 1 tablet as needed 12h 15 Dec, 2016 Not-Taking Super B Complex Not-Taking Nadolol 40 mg Orally Once a day 1 tablet 24h 90 days Active Cymbalta 30 MG Orally, Take with 60 mg capsule Once a day 1 capsule 24h 06 Jun, 2017 Not-Taking Norgestim-Eth Estrad Triphasic 0.18/0.215/0.25 MG-35 MCG Orally Once a day 1 tablet 24h Jul, 28 day(s) Not-Taking Triamterene-HCTZ 75-50 MG Orally Once a day 1 capsule 24h Active RESULTS No Results PROCEDURES No [...]
--- OUTSIDE RECORDS SUMMARY | 2018-08-05 07:56 | XMS REPORT ---
Author Author CARLOS DOMINGUEZ [facility] IN CARE Address [address] [place] [address] Care Team Providers Care Course Instructor Name Role Phone CARLOS DOMINGUEZ Unavailable PROBLEMS Type Condition ICD9-CM Code LGX82-CM Code Onset Dates Condition Status SNOMED Code Problem Rectal bleed K62.5 Active 82268139 Problem Dry eyes H04.123 Active 882457192 Problem Body mass index (BMI) of 40.0-44.9 in adult Z68.41 Active 672361104 Problem Sleep apnea in adult G47.33 Active 23599217 Problem Anal fissure K60.2 Active 45358664 Problem Chronic fatigue R53.82 Active 56233696 Problem Hypertension I10 Active 54376876 ALLERGIES Substance Reaction Event Type Date Status Amoxicillin Unknown Drug Allergy February, Active ENCOUNTERS Encounter Location Date Diagnosis [facility] [address] [address]- [address] Jun, [place] [address] [address]- [address] May, [facility] [address] [address]- [address]39 May, Generalized anxiety disorder 300.02 [facility] [address] 09[address]- 0246 Apr, Sleep apnea in adult G47.33 ; Hypertension I10 and Dry eyes H04.123 [facility] [address] [address]- 1051 Apr, [facility] [address] [address]- 8067 Apr, [facility] [address] 39143- 8059 Apr, Generalized anxiety disorder 300.02 [place] [address] [place] [id number] [place] [address] 21863- 6278 Apr, Generalized anxiety disorder F41.1 [place] [address] [place] [id number] [place] [address] 43252- 9077 Apr, Left breast mass N63.20 [place] [address] 61426- 1361 Apr, Generalized anxiety disorder F41.1 [place] [address] [place] [id number] [place] [address] 39790- 1036 Mar, Generalized anxiety disorder 300.02 [place] [address] [place] [id number] [place] [address] 00742- 9994 Mar, [place] [address] [place] [id number] [place] [address] 39951- 4816 Mar, Generalized anxiety disorder 300.02 [place] [address] [place] [id number] [place] [address] 48361- 9755 Mar, Acute serous otitis media of left ear, recurrence not specified H65.02 ; Dizziness R42 and BMI 40.0-44.9, adult Z68.41 [place] [address] [place] [id number] [place] [address] 03527- 1776 February, Hypertension I10 [place] [address] [place] [id number] [place] [address] 92697- 3212 February, Visit for TB skin test Z11.1 ; Encounter for physical examination related to employment Z02.1 ; Hypertension I10 ; Generalized anxiety disorder F41.1 ; BMI 40.0-44.9, adult Z68.41 and Chronic fatigue R53.82 [place] [address] [place] [id number] [place] [address] 07566- 7412 February, Rectal bleeding K62.5 and BMI 40.0-44.9, adult Z68.41 [place] [address] [place] [id number] [place] [address] 32786- 0962 Jan, BMI 40.0-44.9, adult Z68.41 and Skin irritation R23.8 [facility] [address] [place] [id number] [place] [address] 21948- 3414 Jan, Generalized anxiety disorder F41.1 [facility] [address] 99[address]- 1850 Dec, [facility] [address] 05154- 9134 Nov, Body mass index (BMI) of 40.0-44.9 in adult Z68.41 ; Hypertension I10 and Seasonal allergic rhinitis, unspecified trigger J30.2 [facility] [address] [place] [id number] [place] [address] 72050- 0709 Nov, Hypertension I10 [facility] [address] 35644- 2257 Nov, Generalized anxiety disorder 300.02 [facility] [address] [place] [id number] [place] [address] 14775- 5463 Nov, [facility] [address] [place] [id number] [place] [address] 02710- 0045 Oct, [facility] [address] [place] [id number] [place] [address] 91608- 1136 Oct, [facility] [address] 70836- 5850 Oct, Acute chest wall pain R07.89 [facility] [address] [place] [id number] [place] [address] 46119- 0867 Oct, [facility] [address] [place] [id number] [place] [address] 64506- 6143 Sep, Left breast mass N63.20 [facility] [address] [place] [id number] [place] [address] 67591- 4056 Sep, Left breast mass N63.20 [place] [address] [place] [id number] [place] [address] 51461- 4371 Aug, Hypertension I10 [facility] [address] 79717- 5813 Aug, Generalized anxiety disorder 300.02 [facility] [address] [place] [id number] [place] [address] 22223- 8169 Jul, Generalized anxiety disorder 300.02 [facility] [address] [place] [id number] [place] [address] 00160- 6775 Jul, Sleep apnea in adult G47.33 [place] [address] [place] [id number] [place] [address] 35998- 7721 Jul, Hypertension I10 ; Sleep apnea in adult G47.33 ; Body mass index (BMI) of 40.0-44.9 in adult Z68.41 ; Morbid (severe) obesity due to excess calories E66.01 and Female hirsutism L68.0 [facility] [address] [place] [id number] [place] [address] 30654- 7031 Jul, Generalized anxiety disorder 300.02 [facility] [address] [place] [id number] [place] [address] 26884- 1756 Jul, Generalized anxiety disorder 300.02 [facility] [address] [place] [id number] [place] [address] 50075 -6140 Jun, Chronic fatigue R53.82 [facility] [address] [place] [id number] [place] [address] 69101- 9621 Jun, Generalized anxiety disorder F41.1 [facility] [address] [place] [id number] [place] [address] 52276- 2404 May, Generalized anxiety disorder 300.02 [facility] [address] [place] [id number] [place] [address] 20447- 5437 Apr, Generalized anxiety disorder F41.1 ; Hypertension I10 ; Hyperlipidemia E78.5 ; Female hirsutism L68.0 and Sleep apnea in adult G47.33 [place] [address] [place] [id number] [place] [address] 80888- 9187 Mar, Hypertension I10 and Generalized anxiety disorder F41.1 [facility] [address] [place] [id number] [place] [address] 34446- 8048 Mar, [facility] [address] [place] [id number] [place] [address] 78256- 6894 February, Hypertension I10 and Generalized anxiety disorder F41.1 [facility] [address] [place] [id number] [place] [address] 13416- 4731 February, Generalized anxiety disorder 300.02 [facility] [address] 6[address] -2169 February, Pelvic pain R10.2 and Painful bladder spasm R30.1 [place] [address] [place] [id number] [place] [address] 18879- 8689 Jan, Generalized anxiety disorder 300.02 [place] [address] [place] [id number] [place] [address] 88862- 9013 Dec, Obesity, unspecified E66.9 ; Generalized anxiety disorder F41.1 and Hypertension I10 [place] [address] [place] [id number] [place] [address] 03320- 6902 15 Nov, 2016 Generalized anxiety disorder F41.1 ; Hypertension I10 ; Depression F32.9 and Obesity, unspecified E66.9 [place] [address] [place] [id number] [place] [address] 07970- 3652 Nov, Generalized anxiety disorder 300.02 [place] [address] [place] [id number] [place] [address] 82934- 2651 Oct, [place] [address] [place] [id number] [place] [address] 38591- 3351 Sep, History of pneumonia Z87.01 ; Hypokalemia E87.6 ; Hypertension I10 and Encounter for immunization Z23 [place] [address] 34906- 6802 Jul, [facility] [id number] [place] [address] 76577- 1880 Apr, Hypertension I10 ; Hypercholesteremia E78.0 ; Obesity, unspecified E66.9 ; Anxiety F41.9 and Lumbago M54.5 [facility] [address] [place] [id number] [place] [address] 06224- 6415 Apr, Depression F32.9 [place] [address] [place] [id number] [place] [address] 24325- 6629 Mar, Essential (primary) hypertension I10 [place] [id number] [address] Jan [facility] [address] [place] [id number] [place] [address] 84616- 6389 Dec, [place] [address] [place] [id number] [place] [address] 43090- 6325 Dec, Generalized anxiety disorder F41.1 and Hypertension I10 [place] [address] [place] [id number] [place] [address] 36085- 9378 Dec, [place] [address] [place] [id number] [place] [address] 61811- 3562 Dec, Abdominal pain R10.9 [facility] [address] [place] [id number] [place] [address] 14121- 4147 Dec, Left sided abdominal pain of unknown cause R10.30 [facility] [address] [place] [id number] [place] [address] 17918- 1895 Nov, Generalized anxiety disorder 300.02 [facility] [address] [place] [id number] [place] [address] 82557- 9904 Nov, Female hirsutism L68.0 ; Hypertension I10 ; Hyperlipidemia E78.5 ; Depression F32.9 and Anxiety F41.9 [facility] [address] [place] [id number] [place] [address] 32757- 7439 Oct, [facility] [address] [address]- 6080 Oct, [facility] [address] [place] [id number] [place] [address] 68919- 3652 Oct, [facility] [address] [place] [id number] [place] [address] 98765- 3412 Oct, [facility] [address] [place] [id number] [place] [address] 52339- 7183 Oct, Well woman exam Z01.419 ; Encounter [...] unspecified obesity severity, unspecified obesity type E66.9 [facility] [address] [place] [id number] [place] [address] 80958- 2990 Jun, Generalized anxiety disorder 300.02 [place] [address] [place] [id number] [place] [address] 60994- 9995 Jun, Chest pain 786.50 ; Hypertension 401.9 ; Hyperlipemia 272.4 and Obesity 278.00 [place] [address] [place] [id number] [place] [address] 29295- 2535 Apr, Generalized anxiety disorder 300.02 [facility] [address] [place] [id number] [place] [address] 69119- 8780 Apr, Generalized anxiety disorder 300.02 [facility] [address] [place] [id number] [place] [address] 90414- 0558 Apr, [facility] [address] [place] [id number] [place] [address] 10174- 6946 Apr, [facility] [address] [place] [id number] [place] [address] 30654- 5425 Apr, Abdominal pain 789.00 ; Dehydration 276.51 ; Generalized anxiety disorder 300.02 ; Other and unspecified bipolar disorders 296.89 ; Obesity, unspecified 278.00 ; Family history of hypercholesterolemia V18.19 ; Diarrhea 787.91 ; Sleep apnea in adult 327.23 and Essential hypertension 401.9 [facility] [address] [address]- 1224 Mar, Generalized anxiety disorder 300.02 [facility] [address] [place] [id number] [place] [address] 39935- 3593 February, [facility] [address] [place] [id number] [place] [address] 54069- 7685 Jan, [facility] [address] [place] [id number] [place] [address] 20007- 9376 Jan, [facility] [id number] [place] [address] 16176- 5159 Oct, [facility] [address] [place] [id number] [place] [address] 57301- 1290 Oct, [facility] [id number] [place] [address] 84982- 1792 Oct, [facility] [address] [address]- 0047 Oct, [facility] [address] [address]- 0964 Sep, [facility] [address] [address]- 7127 Sep, [facility] [address] [address]- 7861 Sep, [facility] [address] 8939 Sep, [facility] [address] 6159 Sep, [facility] [address] [place] [id number] [place] [address]- 9169 Sep, [facility] [place] [facility] [address] [id number] [place] [address]- 5771 Sep, [facility] [place] [facility] [address] [id number] [place] [address]- 3405 Aug, [facility] [place] [facility] [address] [id number] [place] [address]- 5240 Aug, [facility] [place] [facility] [address] [id number] [place] [address]- 1840 Aug, [facility] [place] [facility] [address] [id number] [place] [address]- 6121 Aug, [facility] [place] [facility] [address] [id number] [place] [address]- 7781 Jul, [facility] [place] [facility] [address] [id number] [place] [address]- 4422 Jul, [facility] [place] [facility] [address] [id number] [place] [address]- 3496 Jul, [facility] [place] [facility] [address] [id number] [place] [address]- 2963 Jul, [facility] [place] [facility] [address] [id number] [place] [address]- 6995 Jul, [facility] [place] [facility] [address] [id number] [place] [address]- 6508 Jul, [facility] [place] [facility] [address] [id number] [place] [address]- 5419 Jul, [facility] [place] [facility] [address] [id number] [place] [address]- 9717 Jul, [facility] [place] [facility] [address] [id number] [place] [address]- 254 Jun, [facility] [place] [facility] [address] [id number] [place] [address]- 2546 16 Jun, 2014 [facility] [place] [facility] [address] [id number] [place] [address]- 6096 15 Sep, 2013 [facility] [place] [facility] [address] [id number] [place] [address]- 9546 15 Sep, 2013 [facility] [place] [facility] [address] [id number] [place] [address]- 5896 09 Sep, 2013 [facility] [place] [facility] [address] [id number] [place] [address] 2546 09 Sep, 2013 [facility] [place] [facility] [address] [id number] [place] [address]- 5200 04 Sep, 2013 [facility] [place] [facility] [address] [id number] [place] [address]- 3103 04 Sep, 2013 [facility] [place] [facility] [address] [id number] [place] [address]- 2286 02 Sep, 2013 [facility] [place] [facility] [address] [id number] [place] [address]- 1637 02 Sep, 2013 [facility] [place] [facility] [address] [id number] [place] [address]- 3233 02 Sep, 2013 [facility] [place] [facility] [address] [id number] [place] [address]- 6455 02 Sep, 2013 [facility] [place] [facility] [address] [id number], [place] [address]- 9117 02 Sep, 2013 [facility] [place] [facility] [address] [id number], [place] [address]- 1252 02 Sep, 2013 [facility] [place] [facility] [address] [id number] [place] [address] 2546 02 Sep, 2013 [facility] [place] [facility] [address] [id number] [place] [address]- 2544 02 Sep, 2013 [facility] [place] [facility] [address] [id number], [place] [address]- 0522 18 May, 2013 [facility] [place] [facility] [address] [id number], [place] [address]- 5540 May, [facility] [place] [facility] [address] [id number] [place] [address]- 3602 Apr, 2013 [facility] [place] [facility] [address] [id number] [place] [address]- 6479 Apr, [facility] [place] [facility] [address] [id number] [place] [address]- 9413 Apr, [facility] [place] [facility] [address] [id number] [place] [address]- 1235 Apr, 2013 [facility] [place] [facility] [address] [id number] [place] [address]- 1739 Apr, [facility] [place] [facility] [address] [id number] [place] [address]- 8560 Apr, 2013 [facility] [place] [facility] [address] [id number] [place] [address]- 9800 Apr, [facility] [place] [facility] [address] [id number] [place] [address]- 9839 Apr, [facility] [place] [facility] [address] [id number] [place] [address]- 9424 Apr, [facility] [place] [facility] [address] [id number] [place] [address]- 2147 Apr, [facility] [place] [facility] [address] [id number] [place] [address]- 4924 Apr, 2013 [facility] [place] [facility] [address] [id number] [place] [address]- 9179 14 Apr, 2014 [facility] [place] [facility] [address] [id number] [place] [address]- 8250 Apr, [facility] [place] [facility] [address] [id number] [place] [address]- 9844 Apr, 2013 [facility] [place] [facility] [address] [id number] [place] [address]- 5918 Apr, 2013 [facility] [place] [facility] [address] [id number] [place] [address]- 2385 Apr, [facility] [place] [facility] [address] [id number] [place] [address]- 6615 Apr, [facility] [place] [facility] [address] [id number] [place] [address]- 2254 Apr, [facility] [place] [facility] [address] [id number] [place] [address]- 1475 Apr, [facility] [place] [facility] [address] [id number] [place] [address]- 7475 Apr, [facility] [place] [facility] [address] [id number] [place] [address]- 6970 Mar, [facility] [place] [facility] [address] [id number] [place] [address]- 1530 Mar, [facility] [place] [facility] [address] [id number] [place] [address]- 0831 February, [facility] [place] [facility] [address] [id number] [place] [address]- 4825 February, [facility] [place] [facility] [address] [id number] [place] [address]- 4824 Jan, [facility] [place] [facility] [address] [id number] [place] [address]- 1565 Jan, [facility] [place] [facility] [address] [id number] [place] [address]- 3801 Jan, [facility] [place] [facility] [address] [id number] [place] [address]- 2282 Jan, [facility] [place] [facility] [address] [id number] [place] [address]- 0527 Dec, [facility] [place] [facility] [address] [id number] [place] [address]- 7288 Dec, [facility] [place] [facility] [address] [id number] [place] [address]- 0353 Oct, [facility] [place] [facility] [address] [id number] [place] [address]- 2332 Oct, [facility] [place] [facility] [address] [id number] [place] [address]- 5052 Oct, [facility] [place] [facility] [address] [id number] [place] [address]- 7803 Oct, [facility] [place] [facility] [address] [id number] [place] [address]- 5920 Aug, [facility] [place] [facility] [address] [id number] [place] [address]- 3774 Aug, [facility] [place] [facility] [address] [id number] [place] [address]- 0510 Aug, [facility] [place] [facility] [address] [id number] [place] [address]- 1287 Aug, [facility] [place] [facility] [address] [id number] [place] [address]- 0724 Jul, [facility] [place] [facility] [address] [id number] [place] [address]- 4156 Jul, [facility] [place] [facility] [address] [id number] [place] [address]- 9780 Jul, [facility] [place] [facility] [address] [id number] [place] [address]- 8284 Jun, [facility] [place] [facility] [address] [id number], [place] [address] May, [facility] [place] [facility] [address] [id number] [place] [address] Apr, [facility] [place] [facility] [address] [id number] [place] [address] Apr, [facility] [place] [facility] [address] [id number] [place] [address] Apr, [facility] [place] [facility] [address] [id number] [place] [address] Apr, [facility] [address] [id number] [place] [address] Mar, [facility] [address] [id number] [place] [address] Mar, [facility] [address] [id number] [place] [address] Mar, [facility] [address] [id number] [place] [address] Mar, [facility] [address] [id number] [place] [address] February, [facility] [address] [id number] [place] [address] February, [facility] [address] [id number] [place] [address] February, [facility] [address] [id number] [place] [address] February, [facility] [address] [id number] [place] [address] February, [facility] [address] [id number] [place] [address] Jan, [facility] [address] [id number] [place] [address] Dec, [facility] [place] [facility] [address] [id number] [place] [address] Nov, [facility] [place] [facility] [address] [id number] [place] [address] Nov, [facility] [place] [facility] [address] [id number] [place] [address] Nov, [facility] [place] [facility] [address] [id number] [place] [address] Oct, [facility] [place] [facility] [address] [id number] [place] [address] Oct, [facility] [place] [facility] [address] [id number] [place] [address] Oct, [facility] [place] [facility] [address] [id number] [place] [address]- [address] Oct, [facility] [place] [facility] [address] [id number] [place] [address] Oct, [facility] [address] [id number] [place] [address] Oct, [facility] [place] [facility] [address] [id number] [place] [address] Sep, [facility] [address] [id number] [place] [address] Sep, [facility] [address] [id number] [place] [address] Sep, [facility] [place] [facility] [address] [id number] [place] [address] Sep, [facility] [place] [facility] [address] [id number] [place] [address] Aug, [facility] [place] [facility] [address] [id number] [place] [address] Aug, [facility] [place] [facility] [address] [id number], [place] [address] Aug, [facility] [place] [facility] [address] [id number] [place] [address] Aug, [facility] [place] [facility] [address] [id number] [place] [address] Aug, [facility] [place] [facility] [address] [id number] [place] [address] Aug, [facility] [place] [facility] [address] [id number], [place] [address] Jul, [facility] [place] [facility] [address] [id number] [place] [address] Jul, [facility] [place] [facility] [address] [id number] [place] [address] Jul, [facility] [place] [facility] [address] [id number] [place] [address] Jul, [facility] [place] [facility] [address] [id number] [place] [address] Jul, [facility] [place] [facility] [address] [id number] [place] [address] Jul, [facility] [place] [facility] [address] [id number] [place] [address] Jul, [facility] [place] [facility] [address] [id number] [place] [address] Jul, [facility] [place] [facility] [address] [id number] [place] [address] Jul, [facility] [place] [facility] [address] [id number] [place] [address]- [address] Jul, [facility] [place] [facility] [address] [id number] [place] [address] Jun, [facility] [place] [facility] [address] [id number] [place] [address] 14 Jun, 2012 [facility] [place] [facility] [address] [id number] [place] [address] 12 Jun, 2012 [facility] [place] [facility] [address] [id number] [place] [address] May, [facility] [place] [facility] [address] [id number] [place] [address] 16 May, 2012 [facility] [place] [facility] [address] [id number] [place] [address] May, [facility] [place] [facility] [address] [id number] [place] [address] May, [facility] [place] [facility] [address] [id number] [place] [address] Apr, [facility] [place] [facility] [address] [id number] [place] [address] Apr, [facility] [place] [facility] [address] [id number] [place] [address] Apr, [facility] [place] [facility] [address] [id number] [place] [address] Apr, [facility] [place] [facility] [address] [id number] [place] [address] Mar, [facility] [place] [facility] [address] [id number] [place] [address] Mar, [facility] [place] [facility] [address] [id number] [place] [address] Mar, [facility] [address] [id number] [place] [address] February, [facility] [place] [facility] [address] [id number] [place] [address] February, [facility] [place] [facility] [address] [id number] [place] [address] Jan, [facility] [place] [facility] [address] [id number] [place] [address] 18 Jan, 2012 [facility] [place] [facility] [address] [id number] [place] [address] Jan, [facility] [place] [facility] [address] [id number] [place] [address] 29 Dec, 2011 [facility] [place] [facility] [address] [id number] [place] [address] Dec, [facility] [place] [facility] [address] [id number] [place] [address] Dec, [facility] [place] [facility] [address] [id number] [place] [address] 08 Dec, 2011 [facility] [place] [facility] [address] [id number] [place] [address] 480[address] 29 Nov, 2011 [facility] [place] [facility] [address] [id number] [place] [address] Nov, [facility] [place] [facility] [address] [id number] [place] [address] 20 Nov, 2011 [facility] [place] [facility] [address] [id number] [place] [address] 16 Nov, 2011 [facility] [place] [facility] [address] [id number] [place] [address] Nov, [facility] [place] [facility] [address] [id number] [place] [address] Nov, [facility] [place] [facility] [address] [id number] [place] [address] Nov, [facility] [place] [facility] [address] [id number] [place] [address] Oct, [facility] [place] [facility] [address] [id number] [place] [address] Oct, [facility] [place] [facility] [address] [id number] [place] [address] Oct, [facility] [place] [facility] [address] [id number] [place] [address] 17 Oct, 2011 [facility] [place] [facility] [address] [id number] [place] [address]261 Oct, [facility] [place] [facility] [address] [id number] [place] [address]- [address] Oct, [facility] [place] [facility] [address] [id number] [place] [address] 05 Oct, 2011 [facility] [place] [facility] [address] [id number] [place] [address]43 05 Oct, 2011 [facility] [address] [id number] [place] [address] Sep, [facility] [place] [facility] [address] [id number] [place] [address] Sep, [facility] [address] [id number] [place] [address] Sep, [facility] [place] [facility] [address] [id number] [place] [address] Sep, [facility] [address] [id number] [place] [address] Aug, [facility] [place] [facility] [address] [id number] [place] [address] Aug, [facility] [place] [facility] [address] [id number] [place] [address] Aug, [facility] [address] [id number] [place] [address] Jul, [facility] [place] [facility] [address] [id number] [place] [address] Jul, [facility] [address] [id number] [place] [address] Jul, [facility] [place] [facility] [address] [id number] [place] [address] Oct, [facility] [place] [facility] [address] [id number] [place] [address] Aug, [facility] [place] [facility] [address] [id number] [place] [address] Aug, [facility] [place] [facility] [address] [id number] [place] [address] 30 Sep, 2009 [facility] [place] [facility] [address] [id number] [place] [address]- [address] Sep, [facility] [address] [facility] [id number] [place] [address] Sep, [facility] [address] [facility] [id number] [place] [address] Jan, IMMUNIZATIONS No Known Immunizations SOCIAL HISTORY Never Assessed REASON FOR VISIT Needs physical for work and would like tb skin test. [facility] PLAN OF CARE Activity Details Follow Up 48-72 hours Reason:TB test read VITAL SIGNS Height 64 in 2018-03-05 Weight 244.6 lbs 2018-03-05 Temperature 97.5 degrees Fahrenheit 2018-03-05 Heart Rate 72 bpm 2018-03-05 Respiratory Rate 18 2018-03-05 BMI 41.98 kg/m2 2018-03-05 Blood pressure systolic 130 mmHg 2018-03-05 Blood pressure diastolic 84 mmHg 2018-03-05 MEDICATIONS Medication Instructions Dosage Frequency Start Date End Date Duration Status BusPIRone HCl 15 mg Orally Once a day TAKE ONE-HALF TABLET BY MOUTH TWICE DAILY 24h Active Triamterene-HCTZ 75-50 MG Orally Once a day 1 capsule 24h Active Cymbalta 60 MG TAKE ONE CAPSULE BY MOUTH ONCE DAILY ALONG WITH CYMBALTA 30 MG Active Nadolol 40 mg Orally Once a day 1 tablet 24h Active RESULTS No Results PROCEDURES Procedure Date Ordered Result Body Site TB INTRADERMAL 2018-03-05 N/A TB INTRADERMAL TEST March 05, 2018 INSTRUCTIONS MEDICATIONS ADMINISTERED No Known Medications [...]
--- OUTSIDE RECORDS SUMMARY | 2018-08-05 07:57 | XMS REPORT ---
Author Author CARLOS DOMINGUEZ [facility] IN CARE Address [address] [place] [address] Care Team Providers Care Learning Disabilities Resource Teacher Name Role Phone CARLOS DOMINGUEZ Unavailable PROBLEMS Type Condition ICD9-CM Code FHL01-SD Code Onset Dates Condition Status SNOMED Code Problem Rectal bleed K62.5 Active 04172192 Problem Dry eyes H04.123 Active 206766684 Problem Body mass index (BMI) of 40.0-44.9 in adult Z68.41 Active 064733362 Problem Sleep apnea in adult G47.33 Active 16836042 Problem Anal fissure K60.2 Active 84538165 Problem Chronic fatigue R53.82 Active 02200340 Problem Hypertension I10 Active 46023952 ALLERGIES Substance Reaction Event Type Date Status Amoxicillin Unknown Drug Allergy February, Active ENCOUNTERS Encounter Location Date Diagnosis [facility] [place] [address] [address] Jun, [place] [address] [address] May, [facility] [place] [address] [address]- [address] May, Generalized anxiety disorder 300.02 [facility] [place] [address] [address]- [address]67 Apr, Sleep apnea in adult G47.33 ; Hypertension I10 and Dry eyes H04.123 [facility] [place] [address] [address]- [address] Apr, [facility] [place] [address] 08[address]- 1775 Apr, [facility] [place] [address] 0[address]32- 7684 Apr, Generalized anxiety disorder 300.02 [place] [address] [place] [id number] [place] [address] 04178- 3428 Apr, Generalized anxiety disorder F41.1 [place] [address] [place] [id number] [place] [address] 19622- 3933 Apr, Left breast mass N63.20 [place] [address] 53759- 1883 Apr, Generalized anxiety disorder F41.1 [place] [address] [place] [id number] [place] [address] 10455- 7254 Mar, Generalized anxiety disorder 300.02 [place] [address] [place] [id number] [place] [address] 98180- 4367 Mar, [place] [address] [place] [id number] [place] [address] 52545- 7980 Mar, Generalized anxiety disorder 300.02 [place] [address] [place] [id number] [place] [address] 00333- 4606 Mar, Acute serous otitis media of left ear, recurrence not specified H65.02 ; Dizziness R42 and BMI 40.0-44.9, adult Z68.41 [place] [address] [place] [id number] [place] [address] 68998- 0027 February, Hypertension I10 [place] [address] [place] [id number] [place] [address] 54295- 0904 February, Visit for TB skin test Z11.1 ; Encounter for physical examination related to employment Z02.1 ; Hypertension I10 ; Generalized anxiety disorder F41.1 ; BMI 40.0-44.9, adult Z68.41 and Chronic fatigue R53.82 [place] [address] [place] [id number] [place] [address] 93833- 4714 February, Rectal bleeding K62.5 and BMI 40.0-44.9, adult Z68.41 [place] [address] [place] [id number] [place] [address] 45477- 5662 Jan, BMI 40.0-44.9, adult Z68.41 and Skin irritation R23.8 [facility] [place] [address] [place] [id number] [place] [address] 13834- 1964 Jan, Generalized anxiety disorder F41.1 [facility] [place] [address] 40589- 6787 Dec, [facility] [place] [address] 81284- 1813 Nov, Body mass index (BMI) of 40.0-44.9 in adult Z68.41 ; Hypertension I10 and Seasonal allergic rhinitis, unspecified trigger J30.2 [facility] [place] [address] [place] [id number] [place] [address] 89139- 5288 Nov, Hypertension I10 [facility] [place] [address] 65334- 7190 Nov, Generalized anxiety disorder 300.02 [facility] [place] [address] [place] [id number] [place] [address] 62121- 7033 Nov, [facility] [place] [address] [place] [id number] [place] [address] 99679- 0982 Oct, [facility] [place] [address] [place] [id number] [place] [address] 03676- 2285 Oct, [facility] [place] [address] 50930- 3891 Oct, Acute chest wall pain R07.89 [facility] [place] [address] [place] [id number] [place] [address] 38294- 6692 Oct, [facility] [place] [address] [place] [id number] [place] [address] 42357- 4126 Sep, Left breast mass N63.20 [facility] [place] [address] [place] [id number] [place] [address] 74348- 5560 Sep, Left breast mass N63.20 [place] [address] [place] [id number] [place] [address] 81372- 9187 Aug, Hypertension I10 [facility] [place] [address] 07784- 9485 Aug, Generalized anxiety disorder 300.02 [facility] [place] [address] [place] [id number] [place] [address] 43566- 5534 Jul, Generalized anxiety disorder 300.02 [facility] [place] [address] [place] [id number] [place] [address] 49347- 5403 Jul, Sleep apnea in adult G47.33 [place] [address] [place] [id number] [place] [address] 15727- 2198 Jul, Hypertension I10 ; Sleep apnea in adult G47.33 ; Body mass index (BMI) of 40.0-44.9 in adult Z68.41 ; Morbid (severe) obesity due to excess calories E66.01 and Female hirsutism L68.0 [facility] [place] [address] [place] [id number] [place] [address] 77956- 3769 Jul, Generalized anxiety disorder 300.02 [facility] [place] [address] [place] [id number] [place] [address] 48288- 4754 Jul, Generalized anxiety disorder 300.02 [facility] [address] [place] [id number] [place] [address] 95710 -4754 Jun, Chronic fatigue R53.82 [facility] [place] [address] [place] [id number] [place] [address] 83184- 5275 Jun, Generalized anxiety disorder F41.1 [facility] [place] [address] [place] [id number] [place] [address] 52055- 3507 May, Generalized anxiety disorder 300.02 [facility] [place] [address] [place] [id number] [place] [address] 32842- 3302 Apr, Generalized anxiety disorder F41.1 ; Hypertension I10 ; Hyperlipidemia E78.5 ; Female hirsutism L68.0 and Sleep apnea in adult G47.33 [place] [address] [place] [id number] [place] [address] 90008- 1780 Mar, Hypertension I10 and Generalized anxiety disorder F41.1 [facility] [place] [address] [place] [id number] [place] [address] 40677- 9512 Mar, [facility] [place] [address] [place] [id number] [place] [address] 55814- 4018 February, Hypertension I10 and Generalized anxiety disorder F41.1 [facility] [place] [address] [place] [id number] [place] [address] 35692- 8523 February, Generalized anxiety disorder 300.02 [facility] [address] 49282 -3703 February, Pelvic pain R10.2 and Painful bladder spasm R30.1 [place] [address] [place] [id number] [place] [address] 70456- 3517 Jan, Generalized anxiety disorder 300.02 [place] [address] [place] [id number] [place] [address] 25507- 9653 Dec, Obesity, unspecified E66.9 ; Generalized anxiety disorder F41.1 and Hypertension I10 [place] [address] [place] [id number] [place] [address] 62511- 4791 15 Nov, 2016 Generalized anxiety disorder F41.1 ; Hypertension I10 ; Depression F32.9 and Obesity, unspecified E66.9 [place] [address] [place] [id number] [place] [address] 21328- 9979 Nov, Generalized anxiety disorder 300.02 [place] [address] [place] [id number] [place] [address] 97151- 3359 Oct, [place] [address] [place] [id number] [place] [address] 73283- 5557 Sep, History of pneumonia Z87.01 ; Hypokalemia E87.6 ; Hypertension I10 and Encounter for immunization Z23 [place] [address] 47662- 8560 Jul, [facility] [place] [address] [place] [address] 95677- 4690 Apr, Hypertension I10 ; Hypercholesteremia E78.0 ; Obesity, unspecified E66.9 ; Anxiety F41.9 and Lumbago M54.5 [facility] [place] [address] [place] [id number] [place] [address] 29681- 8708 Apr, Depression F32.9 [place] [address] [place] [id number] [place] [address] 59296- 1782 Mar, Essential (primary) hypertension I10 [place] [id number] [address] Jan [facility] [place] [address] [place] [id number] [place] [address] 27647- 1633 Dec, [place] [address] [place] [id number] [place] [address] 50391- 4148 Dec, Generalized anxiety disorder F41.1 and Hypertension I10 [place] [address] [place] [id number] [place] [address] 50042- 3225 Dec, [place] [address] [place] [id number] [place] [address] 28844- 8384 Dec, Abdominal pain R10.9 [facility] [place] [address] [place] [id number] [place] [address] 47913- 4164 Dec, Left sided abdominal pain of unknown cause R10.30 [facility] [place] [address] [place] [id number] [place] [address] 86199- 3793 Nov, Generalized anxiety disorder 300.02 [facility] [place] [address] [place] [id number] [place] [address] 76115- 3309 Nov, Female hirsutism L68.0 ; Hypertension I10 ; Hyperlipidemia E78.5 ; Depression F32.9 and Anxiety F41.9 [facility] [place] [address] [place] [id number] [place] [address] 16415- 7140 Oct, [facility] [place] [address] [address]- 6265 Oct, [facility] [place] [address] [place] [id number] [place] [address] 18770- 3779 Oct, [facility] [place] [address] [place] [id number] [place] [address] 21064- 5930 Oct, [facility] [place] [address] [place] [id number] [place] [address] 71049- 1607 Oct, Well woman exam Z01.419 ; Encounter [...] unspecified obesity severity, unspecified obesity type E66.9 [facility] [place] [address] [place] [id number] [place] [address] 83118- 2753 Jun, Generalized anxiety disorder 300.02 [place] [address] [place] [id number] [place] [address] 28879- 6449 Jun, Chest pain 786.50 ; Hypertension 401.9 ; Hyperlipemia 272.4 and Obesity 278.00 [place] [address] [place] [id number] [place] [address] 53199- 6070 Apr, Generalized anxiety disorder 300.02 [facility] [place] [address] [place] [id number] [place] [address] 73381- 6658 Apr, Generalized anxiety disorder 300.02 [facility] [place] [address] [place] [id number] [place] [address] 60186- 0627 Apr, [facility] [place] [address] [place] [id number] [place] [address] 33426- 4404 Apr, [facility] [place] [address] [place] [id number] [place] [address] 98191- 3728 Apr, Abdominal pain 789.00 ; Dehydration 276.51 ; Generalized anxiety disorder 300.02 ; Other and unspecified bipolar disorders 296.89 ; Obesity, unspecified 278.00 ; Family history of hypercholesterolemia V18.19 ; Diarrhea 787.91 ; Sleep apnea in adult 327.23 and Essential hypertension 401.9 [facility] [place] [address] [address]- 9155 Mar, Generalized anxiety disorder 300.02 [facility] [place] [address] [place] [id number] [place] [address] 57553- 0374 February, [facility] [place] [address] [place] [id number] [place] [address] 05673- 8672 Jan, [facility] [place] [address] [place] [id number] [place] [address] 62227- 2304 Jan, [facility] [place] [address] [place] [address] 84744- 4111 Oct, [facility] [place] [address] [place] [id number] [place] [address] 42769- 3365 Oct, [facility] [place] [address] [place] [address] 06552- 2231 Oct, [facility] [place] [address] [address]- 8664 Oct, [facility] [place] [address] [address]- 4995 Sep, [facility] [place] [address] [address]- 9854 Sep, [facility] [place] [address] [address]- 0398 Sep, [facility] [place] [address] 4318 Sep, [facility] [place] [address] 9229 Sep, [facility] [place] [address] [place] [id number] [place] [address]- 6362 Sep, [facility] [place] [facility] [address] [id number] [place] [address]- 4434 Sep, [facility] [place] [facility] [address] [id number] [place] [address]- 2493 Aug, [facility] [place] [facility] [address] [id number] [place] [address]- 1866 Aug, [facility] [place] [facility] [address] [id number] [place] [address]- 6552 Aug, [facility] [place] [facility] [address] [id number] [place] [address]- 3768 Aug, [facility] [place] [facility] [address] [id number] [place] [address]- 1763 Jul, [facility] [place] [facility] [address] [id number] [place] [address]- 8060 Jul, [facility] [place] [facility] [address] [id number] [place] [address]- 4591 Jul, [facility] [place] [facility] [address] [id number] [place] [address]- 3594 Jul, [facility] [place] [facility] [address] [id number] [place] [address]- 0584 Jul, [facility] [place] [facility] [address] [id number] [place] [address]- 6078 Jul, [facility] [place] [facility] [address] [id number] [place] [address]- 0474 Jul, [facility] [place] [facility] [address] [id number] [place] [address]- 9541 Jul, [facility] [place] [facility] [address] [id number] [place] [address]- 2541 Jun, [facility] [place] [facility] [address] [id number] [place] [address]- 2546 16 Jun, 2014 [facility] [place] [facility] [address] [id number] [place] [address]- 6346 15 Sep, 2013 [facility] [place] [facility] [address] [id number] [place] [address]- 1246 15 Sep, 2013 [facility] [place] [facility] [address] [id number] [place] [address]- 4106 09 Sep, 2013 [facility] [place] [facility] [address] [id number] [place] [address] 2546 09 Sep, 2013 [facility] [place] [facility] [address] [id number] [place] [address]- 7873 04 Sep, 2013 [facility] [place] [facility] [address] [id number] [place] [address]- 6038 04 Sep, 2013 [facility] [place] [facility] [address] [id number] [place] [address]- 1279 02 Sep, 2013 [facility] [place] [facility] [address] [id number] [place] [address]- 7974 02 Sep, 2013 [facility] [place] [facility] [address] [id number] [place] [address]- 6083 02 Sep, 2013 [facility] [place] [facility] [address] [id number] [place] [address]- 7828 02 Sep, 2013 [facility] [place] [facility] [address] [id number] [address]- 4758 02 Sep, 2013 [facility] [place] [facility] [address] [id number] [address]- 2482 02 Sep, 2013 [facility] [place] [facility] [address] [id number] [place] [address] 2546 02 Sep, 2013 [facility] [place] [facility] [address] [id number] [place] [address]- 2540 02 Sep, 2013 [facility] [place] [facility] [address] [id number] [address]- 4784 18 May, 2013 [facility] [place] [facility] [address] [id number] [address]- 8081 May, [facility] [place] [facility] [address] [id number] [place] [address]- 5187 Apr, 2013 [facility] [place] [facility] [address] [id number] [place] [address]- 1568 Apr, [facility] [place] [facility] [address] [id number] [place] [address]- 7959 Apr, [facility] [place] [facility] [address] [id number] [place] [address]- 9501 Apr, 2013 [facility] [place] [facility] [address] [id number] [place] [address]- 7357 Apr, [facility] [place] [facility] [address] [id number] [place] [address]- 5964 Apr, 2013 [facility] [place] [facility] [address] [id number] [place] [address]- 7418 Apr, [facility] [place] [facility] [address] [id number] [place] [address]- 1595 Apr, [facility] [place] [facility] [address] [id number] [place] [address]- 9966 Apr, [facility] [place] [facility] [address] [id number] [place] [address]- 4988 Apr, [facility] [place] [facility] [address] [id number] [place] [address]- 1481 Apr, 2013 [facility] [place] [facility] [address] [id number] [place] [address]- 3767 14 Apr, 2014 [facility] [place] [facility] [address] [id number] [place] [address]- 3950 Apr, [facility] [place] [facility] [address] [id number] [place] [address]- 0300 Apr, 2013 [facility] [place] [facility] [address] [id number] [place] [address]- 0444 Apr, 2013 [facility] [place] [facility] [address] [id number] [place] [address]- 8084 Apr, [facility] [place] [facility] [address] [id number] [place] [address]- 7157 Apr, [facility] [place] [facility] [address] [id number] [place] [address]- 1054 Apr, [facility] [place] [facility] [address] [id number] [place] [address]- 1997 Apr, [facility] [place] [facility] [address] [id number] [place] [address]- 8145 Apr, [facility] [place] [facility] [address] [id number] [place] [address]- 9020 Mar, [facility] [place] [facility] [address] [id number] [place] [address] Mar, [facility] [place] [facility] [address] [id number] [place] [address] February, [facility] [place] [facility] [address] [id number] [place] [address] February, [facility] [place] [facility] [address] [id number] [place] [address] Jan, [facility] [place] [facility] [address] [id number] [place] [address] Jan, [facility] [place] [facility] [address] [id number] [place] [address] Jan, [facility] [place] [facility] [address] [id number] [place] [address] Jan, [facility] [place] [facility] [address] [id number] [place] [address] Dec, [facility] [place] [facility] [address] [id number] [place] [address] Dec, [facility] [place] [facility] [address] [id number] [place] [address] Oct, [facility] [place] [facility] [address] [id number] [place] [address] Oct, [facility] [place] [facility] [address] [id number] [place] [address] Oct, [facility] [place] [facility] [address] [id number] [place] [address] Oct, [facility] [place] [facility] [address] [id number] [place] [address] Aug, [facility] [place] [facility] [address] [id number] [place] [address] Aug, [facility] [place] [facility] [address] [id number] [place] [address] Aug, [facility] [place] [facility] [address] [id number] [place] [address] Aug, [facility] [place] [facility] [address] [id number] [place] [address] Jul, [facility] [place] [facility] [address] [id number] [place] [address] Jul, [facility] [place] [facility] [address] [id number] [place] [address] Jul, [facility] [place] [facility] [address] [id number] [place] [address] Jun, [facility] [place] [facility] [address] [id number] [address] May, [facility] [place] [facility] [address] [id number] [place] [address] Apr, [facility] [place] [facility] [address] [id number] [place] [address] Apr, [facility] [place] [facility] [address] [id number] [place] [address] Apr, [facility] [place] [facility] [address] [id number] [place] [address] Apr, [facility] [address] [id number] [place] [address] Mar, [facility] [address] [id number] [place] [address] Mar, [facility] [address] [id number] [place] [address] Mar, [facility] [address] [id number] [place] [address] Mar, [facility] [address] [id number] [place] [address] February, [facility] [address] [id number] [place] [address] February, [facility] [address] [id number] [place] [address] February, [facility] [address] [id number] [place] [address] February, [facility] [address] [id number] [place] [address] February, [facility] [address] [id number] [place] [address] Jan, [facility] [address] [id number] [place] [address] Dec, [facility] [place] [facility] [address] [id number] [place] [address] Nov, [facility] [place] [facility] [address] [address] [id number] [place] [address] Nov, [facility] [place] [facility] [address] [id number] [place] [address] Nov, [facility] [place] [facility] [address] [id number] [place] [address] Oct, [facility] [place] [facility] [address] [id number] [place] [address] Oct, [facility] [place] [facility] [address] [id number] [place] [address] Oct, [facility] [place] [facility] [address] [id number] [place] [address] Oct, [facility] [place] [facility] [address] [id number] [place] [address] Oct, [facility] [address] [id number] [place] [address] Oct, [facility] [place] [facility] [address] [id number] [place] [address] Sep, [facility] [address] [id number] [place] [address] Sep, [facility] [address] [id number] [place] [address] Sep, [facility] [place] [facility] [address] [id number] [place] [address] Sep, [facility] [place] [facility] [address] [id number] [place] [address] Aug, [facility] [place] [facility] [address] [id number] [place] [address] Aug, [facility] [place] [facility] [address] [id number] [address] Aug, [facility] [place] [facility] [address] [id number] [place] [address] Aug, [facility] [place] [facility] [address] [id number] [place] [address] Aug, [facility] [place] [facility] [address] [id number] [place] [address]127 Aug, [facility] [place] [facility] [address] [id number] [address] Jul, [facility] [place] [facility] [address] [id number] [place] [address] Jul, [facility] [place] [facility] [address] [id number] [place] [address] Jul, [facility] [place] [facility] [address] [id number] [place] [address] Jul, [facility] [place] [facility] [address] [id number] [place] [address] Jul, [facility] [place] [facility] [address] [id number] [place] [address]78 Jul, [facility] [place] [facility] [address] [id number] [place] [address] 69[address] Jul, [facility] [place] [facility] [address] [id number] [place] [address] Jul, [facility] [place] [facility] [address] [id number] [place] [address] 1448 Jul, [facility] [place] [facility] [address] [id number] [place] [address] Jul, [facility] [place] [facility] [address] [id number] [place] [address] Jun, [facility] [place] [facility] [address] [id number] [place] [address] 14 Jun, 2012 [facility] [place] [facility] [address] [id number] [place] [address] 12 Jun, 2012 [facility] [place] [facility] [address] [id number] [place] [address] May, [facility] [place] [facility] [address] [id number] [place] [address] 16 May, 2012 [facility] [place] [facility] [address] [id number] [place] [address] May, [facility] [place] [facility] [address] [id number] [place] [address] May, [facility] [place] [facility] [address] [id number] [place] [address]17 Apr, [facility] [place] [facility] [address] [id number] [place] [address] 25[address] Apr, [facility] [place] [facility] [address] [id number] [place] [address] Apr, [facility] [place] [facility] [address] [id number] [place] [address] Apr, [facility] [place] [facility] [address] [id number] [place] [address] Mar, [facility] [place] [facility] [address] [id number] [place] [address] Mar, [facility] [place] [facility] [address] [id number] [place] [address] Mar, [facility] [address] [id number] [place] [address] February, [facility] [place] [facility] [address] [id number] [place] [address] February, [facility] [place] [facility] [address] [id number] [place] [address] Jan, [facility] [place] [facility] [address] [id number] [place] [address] 18 Jan, 2012 [facility] [place] [facility] [address] [id number] [place] [address] 76[address] Jan, [facility] [place] [facility] [address] [id number] [place] [address]46 29 Dec, 2011 [facility] [place] [facility] [address] [id number] [place] [address]46 Dec, [facility] [place] [facility] [address] [id number] [place] [address] 9831 Dec, [facility] [place] [facility] [address] [id number] [place] [address]- [address]148 08 Dec, 2011 [facility] [place] [facility] [address] [id number] [place] [address] 8916 29 Nov, 2011 [facility] [place] [facility] [address] [id number] [place] [address]- 1694 Nov, [facility] [place] [facility] [address] [id number] [place] [address]- 9409 20 Nov, 2011 [facility] [place] [facility] [address] [id number] [place] [address] 6[address] 16 Nov, 2011 [facility] [place] [facility] [address] [id number] [place] [address] Nov, [facility] [place] [facility] [address] [id number] [place] [address]238 Nov, [facility] [place] [facility] [address] [id number] [place] [address] 7730 Nov, [facility] [place] [facility] [address] [id number] [place] [address]- 7124 Oct, [facility] [place] [facility] [address] [id number] [place] [address]- 5799 Oct, [facility] [place] [facility] [address] [id number] [place] [address] 0257 Oct, [facility] [place] [facility] [address] [id number] [place] [address]- 9806 17 Oct, 2011 [facility] [place] [facility] [address] [id number] [place] [address]- [address]809 Oct, [facility] [place] [facility] [address] [id number] [place] [address]- 1933 Oct, [facility] [place] [facility] [address] [id number] [place] [address]- 9080 05 Oct, 2011 [facility] [place] [facility] [address] [id number] [place] [address] 254 05 Oct, 2011 [facility] [address] [id number] [place] [address]- 9979 Sep, [facility] [place] [facility] [address] [id number] [place] [address]- 7134 Sep, [facility] [address] [id number] [place] [address]- 7972 Sep, [facility] [place] [facility] [address] [id number] [place] [address]- 5810 Sep, [facility] [address] [id number] [place] [address]- 2158 Aug, [facility] [place] [facility] [address] [id number] [place] [address]- 5210 Aug, [facility] [place] [facility] [address] [id number] [place] [address]- 1583 Aug, [facility] [address] [id number] [place] [address]- 8264 Jul, [facility] [place] [facility] [address] [id number] [place] [address]- 2978 Jul, [facility] [address] [id number] [place] [address]- [address]75 Jul, [facility] [place] [facility] [address] [id number] [place] [address]- 6788 Oct, [facility] [place] [facility] [address] [id number] [place] [address]- 0425 Aug, [facility] [place] [facility] [address] [id number] [place] [address]- 2762 Aug, [facility] [place] [facility] [address] [id number] [place] [address]- 0126 30 Sep, 2009 [facility] [place] [facility] [address] [id number] [place] [address]- 9932 Sep, [facility] [place] [address] [facility] [id number] [place] [address] Sep, [facility] [place] [address] [facility] [id number] [place] [address]- [address] Jan, IMMUNIZATIONS No Known Immunizations SOCIAL HISTORY Never Assessed REASON FOR VISIT Rectal bleeding- AW- [place], Pt. needing TB test for work, rectal bleeding intermittent for 16 yrs, had a fissurectomy, usually will stop but bleeding since yesterday PLAN OF CARE Activity Details Follow Up 3 Months, prn Reason:routine f/u VITAL SIGNS Height 64 in 2018-02-18 Weight 245.1 lbs 2018-02-18 Temperature 98.1 degrees Fahrenheit 2018-02-18 Heart Rate 84 bpm 2018-02-18 Respiratory Rate 20 2018-02-18 BMI 42.07 kg/m2 2018-02-18 Blood pressure systolic 118 mmHg 2018-02-18 Blood pressure diastolic 82 mmHg 2018-02-18 MEDICATIONS Medication Instructions Dosage Frequency Start Date End Date Duration Status Super B Complex Active Lorazepam 0.5 MG Orally 2 times a day 1 tablet as needed 12h 15 Dec, 2016 Active Cymbalta 60 MG TAKE ONE CAPSULE BY MOUTH ONCE DAILY ALONG WITH CYMBALTA 30 MG 30 Active Triamterene-HCTZ 75-50 MG Orally Once a day 1 capsule 24h Active Nadolol 40 mg Orally Once a day 1 tablet 24h 90 days Active BusPIRone HCl 15 mg Orally Once a day TAKE ONE-HALF TABLET BY MOUTH TWICE DAILY 24h 180 days Active RESULTS No Results PROCEDURES Procedure Date Ordered Result Body Site COMPLETE CBC W/AUTO DIFF WBC February 18, 2018 COMPREHEN METABOLIC PANEL February 18, 2018 VENIPUNCT, ROUTINE* February 18, 2018 INSTRUCTIONS MEDICATIONS ADMINISTERED No Known Medications [...]
--- OUTSIDE RECORDS SUMMARY | 2018-08-05 07:57 | XMS REPORT ---
Author Author MARIBETH PANIAGUA [facility] Address [address] [place] [address] Care Team Providers Care Management Services Technician Name Role Phone MARIBETH PANIAGUA Unavailable PROBLEMS Type Condition ICD9-CM Code INS58-TR Code Onset Dates Condition Status SNOMED Code Problem Rectal bleed K62.5 Active 58827897 Problem Dry eyes H04.123 Active 203217998 Problem Body mass index (BMI) of 40.0-44.9 in adult Z68.41 Active 564852117 Problem Sleep apnea in adult G47.33 Active 84449118 Problem Anal fissure K60.2 Active 75083080 Problem Chronic fatigue R53.82 Active 23488452 Problem Hypertension I10 Active 68514468 ALLERGIES Substance Reaction Event Type Date Status Amoxicillin Unknown Drug Allergy Jan, Active ENCOUNTERS Encounter Location Date Diagnosis [facility] [id number] [place] [address] 95567- 7301 Jun, [facility] [id number] [place] [address] 11611- 9048 May, [facility] [id number] [place] [address] 75345- 8907 May, Generalized anxiety disorder 300.02 [facility] [id number] [place] [address] 31917- 9698 Apr, Sleep apnea in adult G47.33 ; Hypertension I10 and Dry eyes H04.123 [facility] [id number] [place] [address] 29455- 7065 Apr, [facility] [id number] [place] [address] 51673- 7338 Apr, [facility] [id number] [place] [address] 79792- 9212 Apr, Generalized anxiety disorder 300.02 [facility] [id number] [place] [address] 03836- 0711 Apr, Generalized anxiety disorder F41.1 [facility] [id number] [place] [address] 00682- 5099 Apr, Left breast mass N63.20 [facility] [id number] [place] [address] 02282- 3945 Apr, Generalized anxiety disorder F41.1 [facility] [id number] [place] [address] 27373- 5017 Mar, Generalized anxiety disorder 300.02 [facility] [id number] [place] [address] 63762- 5597 Mar, [facility] [id number] [place] [address] 13467- 8638 Mar, Generalized anxiety disorder 300.02 [facility] [id number] [place] [address] 61199- 2328 Mar, Acute serous otitis media of left ear, recurrence not specified H65.02 ; Dizziness R42 and BMI 40.0-44.9, adult Z68.41 [facility] [id number] [place] [address] 64723- 9281 February, Hypertension I10 [facility] [id number] [place] [address] 41788- 7685 February, Visit for TB skin test Z11.1 ; Encounter for physical examination related to employment Z02.1 ; Hypertension I10 ; Generalized anxiety disorder F41.1 ; BMI 40.0-44.9, adult Z68.41 and Chronic fatigue R53.82 [facility] [id number] [place] [address] 69168- 1122 February, Rectal bleeding K62.5 and BMI 40.0-44.9, adult Z68.41 [facility] [id number] [place] [address] 65592- 3625 Jan, BMI 40.0-44.9, adult Z68.41 and Skin irritation R23.8 [facility] [address] 18797- 1227 Jan, Generalized anxiety disorder F41.1 [facility] [address] 30036- 5332 Dec, [facility] [address] 23937- 3820 Nov, Body mass index (BMI) of 40.0-44.9 in adult Z68.41 ; Hypertension I10 and Seasonal allergic rhinitis, unspecified trigger J30.2 [facility] [address] 14616- 4572 Nov, Hypertension I10 [facility] [address] 46855- 7966 Nov, Generalized anxiety disorder 300.02 [facility] [address] 95065- 0835 Nov, [facility] [address] 09840- 5674 Oct, [facility] [address] 15633- 4590 Oct, [facility] [address] 52421- 6429 Oct, Acute chest wall pain R07.89 [facility] [address] 09233- 5443 Oct, [facility] [address] 16607- 7693 Sep, Left breast mass N63.20 [facility] [address] 31245- 9181 Sep, Left breast mass N63.20 [facility] [id number] [place] [address] 21208- 7495 Aug, Hypertension I10 [facility] [address] 32024- 2081 Aug, Generalized anxiety disorder 300.02 [facility] [id number] [place] [address] 69234- 2281 Jul, Generalized anxiety disorder 300.02 [facility] [address] 86149- 1272 Jul, Sleep apnea in adult G47.33 [facility] [address] 26320- 9511 Jul, Hypertension I10 ; Sleep apnea in adult G47.33 ; Body mass index (BMI) of 40.0-44.9 in adult Z68.41 ; Morbid (severe) obesity due to excess calories E66.01 and Female hirsutism L68.0 [facility] [id number] [place] [address] 39129- 4421 Jul, Generalized anxiety disorder 300.02 [facility] [id number] [place] [address] 67414- 7574 Jul, Generalized anxiety disorder 300.02 [facility] [id number] [place] [address] 16039 -7391 Jun, Chronic fatigue R53.82 [facility] [id number] [place] [address] 10544- 4448 Jun, Generalized anxiety disorder F41.1 [facility] [id number] [place] [address] 21256- 1631 May, Generalized anxiety disorder 300.02 [facility] [id number] [place] [address] 94403- 8579 Apr, Generalized anxiety disorder F41.1 ; Hypertension I10 ; Hyperlipidemia E78.5 ; Female hirsutism L68.0 and Sleep apnea in adult G47.33 [facility] [id number] [place] [address] 28810- 8907 Mar, Hypertension I10 and Generalized anxiety disorder F41.1 [facility] [address] 07381- 2916 Mar, [facility] [address] 79538- 2441 February, Hypertension I10 and Generalized anxiety disorder F41.1 [facility] [address] 98221- 8627 February, Generalized anxiety disorder 300.02 [facility] [address] 06573 -6769 February, Pelvic pain R10.2 and Painful bladder spasm R30.1 [facility] [address] 28537- 9865 Jan, Generalized anxiety disorder 300.02 [facility] [address] 60991- 2501 Dec, Obesity, unspecified E66.9 ; Generalized anxiety disorder F41.1 and Hypertension I10 [facility] [address] 27383- 6199 15 Nov, 2016 Generalized anxiety disorder F41.1 ; Hypertension I10 ; Depression F32.9 and Obesity, unspecified E66.9 [facility] [id number] [place] [address] 15284- 2606 Nov, Generalized anxiety disorder 300.02 [facility] [id number] [place] [address] 92564- 9795 Oct, [facility] [address] 80677- 9616 Sep, History of pneumonia Z87.01 ; Hypokalemia E87.6 ; Hypertension I10 and Encounter for immunization Z23 [facility] [address] 09132- 6679 Jul, [facility] [address] [place] [address] 40166- 1551 Apr, Hypertension I10 ; Hypercholesteremia E78.0 ; Obesity, unspecified E66.9 ; Anxiety F41.9 and Lumbago M54.5 [facility] [id number] [place] [address] 63430- 5556 Apr, Depression F32.9 [facility] [id number] [place] [address] 80086- 4016 Mar, Essential (primary) hypertension I10 [address] [id number] [address] Jan [facility] [id number] [place] [address] 51609- 5837 Dec, [facility] [id number] [place] [address] 73854- 1997 Dec, Generalized anxiety disorder F41.1 and Hypertension I10 [facility] [id number] [place] [address] 22992- 3693 Dec, [facility] [id number] [place] [address] 23324- 1719 Dec, Abdominal pain R10.9 [facility] [id number] [place] [address] 49142- 2901 Dec, Left sided abdominal pain of unknown cause R10.30 [facility] [id number] [place] [address] 61460- 8338 Nov, Generalized anxiety disorder 300.02 [facility] [id number] [place] [address] 95342- 1535 Nov, Female hirsutism L68.0 ; Hypertension I10 ; Hyperlipidemia E78.5 ; Depression F32.9 and Anxiety F41.9 [facility] [id number] [place] [address] 78226- 0997 Oct, [facility] [address] [address]- 9473 Oct, [facility] [id number] [place] [address] 02371- 2628 Oct, [facility] [address] [place] [address] 67837- 6427 Oct, [facility] [id number] [place] [address] 61532- 6621 Oct, Well woman exam Z01.419 ; Encounter [...] unspecified obesity severity, unspecified obesity type E66.9 [facility] [id number] [place] [address] 48368- 8420 Jun, Generalized anxiety disorder 300.02 [facility] [place] [id number] [place] [address] 71537- 4043 Jun, Chest pain 786.50 ; Hypertension 401.9 ; Hyperlipemia 272.4 and Obesity 278.00 [facility] [id number] [place] [address] 09365- 7749 Apr, Generalized anxiety disorder 300.02 [facility] [id number] [place] [address] 89514- 5834 Apr, Generalized anxiety disorder 300.02 [facility] [id number] [place] [address] 15251- 8572 Apr, [facility] [id number] [place] [address] 49968- 0677 Apr, [facility] [id number] [place] [address] 39927- 1689 Apr, Abdominal pain 789.00 ; Dehydration 276.51 ; Generalized anxiety disorder 300.02 ; Other and unspecified bipolar disorders 296.89 ; Obesity, unspecified 278.00 ; Family history of hypercholesterolemia V18.19 ; Diarrhea 787.91 ; Sleep apnea in adult 327.23 and Essential hypertension 401.9 [facility] [id number] 8271 Mar, Generalized anxiety disorder 300.02 [facility] [id number] [place] [address] 016144- 2855 February, [facility] [id number] [place] [address] 197980- 9327 Jan, [facility] [id number] [place] [address] 96569- 5784 Jan, [facility] [id number] [place] [address] 69332- 8140 Oct, [facility] [id number] [place] [address] 07462- 1525 Oct, [facility] [id number] [place] [address] 01601- 4807 Oct, [facility] [id number] [place] [address] 51125- 0950 Oct, [facility] [address] [address]- 2055 Sep, [facility] [id number] [place] [address] 18560- 7436 Sep, [facility] [id number] [address]- 8782 Sep, [facility] [id number] [place] [address] 32905- 1749 Sep, [facility] [id number] 0807 Sep, [facility] [address] [place] [address]- 4038 Sep, [facility] [place] [facility] [address] [id number] [place] [address]- 9442 Sep, [facility] [place] [facility] [address] [id number] [place] 5968 Aug, [facility] [place] [facility] [address] [id number] [place] [address]- 6199 Aug, [facility] [place] [facility] [address] [id number] [place] [address]- 4910 Aug, [facility] [place] [facility] [address] [id number] [place] 4678 Aug, [facility] [place] [facility] [address] [id number] [place] [address]- 1737 Jul, [facility] [place] [facility] [address] [id number] [place] [address]- 8564 Jul, [facility] [place] [facility] [address] [id number] [place] [address]- 0682 Jul, [facility] [place] [facility] [address] [id number] [place] [address]- 9247 Jul, [facility] [place] [facility] [address] [facility] [id number] [place] [address]- 3242 Jul, [facility] [place] [facility] [address] [id number] [place] [address]- 6739 Jul, [facility] [place] [facility] [address] [id number] [place] [address]- 4378 Jul, [facility] [place] [facility] [address] [id number] [place] [address]- 3817 Jul, [facility] [place] [facility] [address] [id number] [place] 8223 16 Jun, 2014 [facility] [place] [facility] [address] [id number] [place] [address]- 4202 16 Jun, 2014 [facility] [place] [facility] [address] [id number] [place] [address]- 8930 15 Sep, 2013 [facility] [place] [facility] [address] [id number] [place] [address]- 1692 15 Sep, 2013 [facility] [place] [facility] [address] [id number] [place] [address]- 9028 09 Sep, 2013 [facility] [place] [facility] [address] [id number] [place] [address]- 4938 09 Sep, 2013 [facility] [place] [facility] [address] [id number] [place] [address]- 0222 04 Sep, 2013 [facility] [place] [facility] [address] [id number] [place] [address]- 7714 04 Sep, 2013 [facility] [place] [facility] [address] [id number] [place] [address]- 0409 02 Sep, 2013 [facility] [place] [facility] [address] [id number] [place] [address]- 2091 02 Sep, 2013 [facility] [place] [facility] [address] [id number] [place] [address]- 1848 02 Sep, 2013 [facility] [place] [facility] [address] [id number] [place] [address]- 1683 02 Sep, 2013 [facility] [place] [facility] [address] [id number] [place] [address]- 8363 02 Sep, 2013 [facility] [place] [facility] [address] [id number] [place] [address]- 2544 02 Sep, 2013 [facility] [place] [facility] [address] [id number] [place] [address]- 2543 02 Sep, 2013 [facility] [place] [facility] [address] [id number] [place] [address]- 2540 02 Jun, 2013 [facility] [place] [facility] [address] [id number] [place] [address]- 6473 18 May, 2013 [facility] [place] [facility] [address] [id number] [place] [address]- 5792 May, [facility] [place] [facility] [address] [id number] [place] [address]- 2596 Apr, [facility] [place] [facility] [address] [id number] [place] [address]- 9271 Apr, [facility] [place] [facility] [address] [id number] [place] [address]- 2300 Apr, [facility] [place] [facility] [address] [id number] [place] [address]- 7925 Apr, 2013 [facility] [place] [facility] [address] [id number] [place] [address]- 3782 Apr, [facility] [place] [facility] [address] [id number] [place] [address]- 2118 Apr, [facility] [place] [facility] [address] [id number] [place] [address]- 2246 Apr, [facility] [place] [facility] [address] [id number] [place] [address]- 8002 Apr, [facility] [place] [facility] [address] [id number] [place] [address]- 3692 Apr, [facility] [place] [facility] [address] [id number] [place] [address]- 2630 Apr, [facility] [place] [facility] [address] [id number] [place] [address]- 5759 Apr, [facility] [place] [facility] [address] [id number] [place] [address]- 7000 Apr, [facility] [place] [facility] [address] [id number] [place] [address]- 3927 Apr, [facility] [place] [facility] [address] [id number] [place] [address]- 8829 Apr, [facility] [place] [facility] [address] [id number] [place] [address]- 5291 Apr, [facility] [place] [facility] [address] [id number] [place] [address]- 0747 Apr, [facility] [place] [facility] [address] [id number] [place] [address]- 0996 Apr, [facility] [place] [facility] [address] [id number] [place] [address]- 8998 Apr, [facility] [place] [facility] [address] [id number] [place] [address]- 5279 Apr, [facility] [place] [facility] [address] [id number] [place] [address]- 3647 Apr, [facility] [place] [facility] [address] [id number] [place] [address]- 7350 Mar, [facility] [place] [facility] [address] [id number] [place] [address]- 4518 Mar, [facility] [place] [facility] [address] [id number] [place] [address]- 3885 February, [facility] [address] [id number] [place] [address]- 1206 February, [facility] [place] [facility] [address] [id number] [place] [address]- 8758 Jan, [facility] [place] [facility] [address] [id number] [place] [address]- 3673 Jan, [facility] [place] [facility] [address] [id number] [place] [address]- 5957 Jan, [facility] [place] [facility] [address] [id number] [place] [address]- 1646 Jan, [facility] [place] [facility] [address] [id number] [place] [address]- 0390 Dec, [facility] [place] [facility] [address] [id number] [place] [address]- 7086 Dec, [facility] [place] [facility] [address] [id number] [place] [address]- 3503 Oct, [facility] [place] [facility] [address] [id number] [place] [address]- 0543 Oct, [facility] [place] [facility] [address] [id number] [place] [address]- 2127 Oct, [facility] [place] [facility] [address] [id number] [place] [address]- 2565 Oct, [facility] [place] [facility] [address] [id number] [place] [address]- 5425 Aug, [facility] [place] [facility] [address] [id number] [place] [address]- 2190 Aug, [facility] [place] [facility] [address] [id number] [place] [address]- 9629 Aug, [facility] [place] [facility] [address] [id number] [place] [address]- 9646 Aug, [facility] [place] [facility] [address] [id number] [place] [address]- 8112 Jul, [facility] [place] [facility] [address] [id number] [place] [address]- 5833 Jul, [facility] [place] [facility] [address] [id number], [place] [address]- 7078 Jul, [facility] [place] [facility] [address] [id number], [place] [address]- 2699 Jun, [facility] [place] [facility] [address] [id number], [place] [address]- 1915 May, [facility] [place] [facility] [address] [id number] [place] [address]- 9843 Apr, [facility] [place] [facility] [address] [id number], [place] [address]- 5006 Apr, [facility] [place] [facility] [address] [id number], [place] [address]- 5433 Apr, [facility] [place] [facility] [address] [id number], [place] [address] Apr, [facility] [address] [id number] [place] [address] Mar, [facility] [address] [id number] [place] [address] Mar, [facility] [address] [id number] [place] [address] Mar, [facility] [address] [id number] [place] [address] Mar, [facility] [address] [id number] [place] [address] February, [facility] [address] [id number] [place] [address] February, [facility] [address] [id number] [place] [address] February, [facility] [address] [id number] [place] [address] February, [facility] [address] [id number] [place] [address] February, [facility] [address] [id number] [place] [address] Jan, [facility] [address] [id number] [place] [address] Dec, [facility] [address] [id number], [place] [address] Nov, [facility] [address] [id number] [place] [address] Nov, [facility] [address] [id number] [place] [address] Nov, [facility] [address] [id number], [place] [address] Oct, [facility] [address] [id number] [place] [address] Oct, [facility] [address] [id number] [place] [address] Oct, [facility] [address] [id number] [place] [address] Oct, [facility] [address] [id number] [place] [address] Oct, [facility] [address] [id number] [place] [address] Oct, [facility] [address] [id number] [place] [address] Sep, [facility] [address] [id number] [place] [address] Sep, [facility] [address] [id number] [place] [address] Sep, [facility] [address] [id number] [place] [address] Sep, [facility] [address] [id number] [place] [address] Aug, [facility] [address] [id number] [place] [address] Aug, [facility] [address] [id number] [place] [address] Aug, [facility] [address] [id number] [place] [address] Aug, [facility] [address] [id number] [place] [address] Aug, [facility] [address] [id number] [place] [address] Aug, [facility] [address] [id number] [place] [address] Jul, [facility] [facility] [address] [id number] [place] [address] Jul, [facility] [address] [id number] [place] [address] Jul, [facility] [facility] [address] [id number] [place] [address] Jul, [facility] [facility] [address] [id number] [place] [address] Jul, [facility] [address] [id number] [place] [address] Jul, [facility] [address] [id number] [place] [address] Jul, [facility] [address] [id number] [place] [address]- [address] Jul, [facility] [address] [id number] [place] [address]- 8460 Jul, [facility] [address] [id number] [place] [address]- [address] Jul, [facility] [address] [id number] [place] [address] Jun, [facility] [address] [id number] [place] [address]- [address] 14 Jun, 2012 [facility] [address] [id number] [address] 12 Jun, 2012 [facility] [place] [facility] [address] [id number] [place] [address] May, [facility] [place] [facility] [address] [id number] [place] [address] May, [facility] [place] [facility] [address] [id number] [place] [address] May, [facility] [place] [facility] [address] [id number] [place] [address] May, [facility] [address] [id number] [place] [address] Apr, [facility] [address] [id number] [place] [address] Apr, [facility] [address] [id number] [place] [address] Apr, [facility] [address] [id number] [place] [address] Apr, [facility] [address] [id number] [place] [address] Mar, [facility] [address] [id number] [place] [address] Mar, [facility] [address] [id number] [place] [address] Mar, [facility] [address] [id number] [place] [address] February, [facility] [address] [id number] [place] [address] February, [facility] [address] [id number] [place] [address] Jan, [facility] [place] [facility] [address] [id number] [place] [address] Jan, [facility] [address] [id number] [place] [address] Jan, [facility] [place] [facility] [address] [id number] [place] [address] 29 Dec, 2011 [facility] [place] [facility] [address] [id number] [place] [address] Dec, [facility] [address] [id number] [place] [address] 14 Dec, 2011 [facility] [address] [id number] [place] [address] 08 Dec, 2011 [facility] [place] [facility] [address] [id number] [place] [address] 29 Nov, 2011 [facility] [place] [facility] [address] [id number] [place] [address] 21 Nov, 2011 [facility] [place] [facility] [address] [id number] [place] [address] 20 Nov, 2011 [facility] [place] [facility] [address] [id number] [place] [address] 16 Nov, 2011 [facility] [place] [facility] [address] [id number] [place] [address] 09 Nov, 2011 [facility] [place] [facility] [address] [id number] [place] [address] 06 Nov, 2011 [facility] [place] [facility] [address] [id number] [place] [address] Nov, [facility] [place] [facility] [address] [id number] [place] [address] Oct, [facility] [place] [facility] [address] [id number] [place] [address] Oct, [facility] [place] [facility] [address] [id number] [place] [address] Oct, [facility] [place] [facility] [address] [id number] [place] [address] Oct, [facility] [place] [facility] [address] [id number] [place] [address] Oct, [facility] [place] [facility] [address] [id number] [place] [address] Oct, [facility] [place] [facility] [address] [id number] [place] [address] 05 Oct, 2011 [facility] [place] [facility] [address] [id number] [place] [address] 05 Oct, 2011 [facility] [address] [id number] [place] [address] Sep, [facility] [address] [id number] [place] [address] Sep, [facility] [address] [id number] [place] [address] Sep, [facility] [address] [id number] [place] [address] Sep, [facility] [address] [id number] [place] [address] Aug, [facility] [address] [id number] [place] [address] Aug, [facility] [address] [id number] [place] [address] Aug, [facility] [address] [id number] [place] [address] Jul, [facility] [address] [id number] [place] [address] Jul, [facility] [address] [facility] [id number] [place] [address] Jul, [facility] [address] [id number] [place] [address] Oct, [facility] [address] [id number] [place] [address] Aug, [facility] [place] [facility] [address] [id number] [place] [address] 16 Aug, 2010 [facility] [place] [facility] [address] [id number] [place] [address] 30 Sep, 2009 [facility] [place] [facility] [address] [id number] [place] [address] Sep, [facility] [address] [facility] [id number] [place] [address] Sep, [facility] [address] [facility] [id number] [place] [address] Jan, IMMUNIZATIONS No Known Immunizations SOCIAL HISTORY Never Assessed REASON FOR VISIT Painful bruise under right breast noticed at 11:00 this am. Pt states that earlier today, approximately an hour ago, there was a lump associated with the bruise. Pt denies any remembrance of insect bite. [facility] PLAN OF CARE Activity Details Follow Up prn Reason: VITAL SIGNS Height 64 in 2018-02-17 Weight 245.8 lbs 2018-02-17 Temperature 97.8 degrees Fahrenheit 2018-02-17 Heart Rate 80 bpm 2018-02-17 Respiratory Rate 20 2018-02-17 BMI 42.19 kg/m2 2018-02-17 Blood pressure systolic 124 mmHg 2018-02-17 Blood pressure diastolic 82 mmHg 2018-02-17 MEDICATIONS Medication Instructions Dosage Frequency Start Date End Date Duration Status Super B Complex Active Cymbalta 60 MG TAKE ONE CAPSULE BY MOUTH ONCE DAILY ALONG WITH CYMBALTA 30 MG 30 Active Lorazepam 0.5 MG Orally 2 times a day 1 tablet as needed 12h 15 Dec, 2016 Active BusPIRone HCl 15 mg Orally Once a day TAKE ONE-HALF TABLET BY MOUTH TWICE DAILY 24h 180 days Active Nadolol 40 mg Orally Once a day 1 tablet 24h 90 days Active Triamterene-HCTZ 75-50 MG Orally Once a [...]
--- OUTSIDE RECORDS SUMMARY | 2018-08-05 07:58 | XMS REPORT ---
Author Author GAMAL CLARK Organization [facility] Address [address] [place] [address] Care Team Providers Care Clinical Nursing Professor Name Role Phone GAMAL CLARK Unavailable PROBLEMS Type Condition ICD9-CM Code HKK68-II Code Onset Dates Condition Status SNOMED Code Problem Rectal bleed K62.5 Active 91124109 Problem Dry eyes H04.123 Active 625912806 Problem Body mass index (BMI) of 40.0-44.9 in adult Z68.41 Active 558846078 Problem Sleep apnea in adult G47.33 Active 07784931 Problem Anal fissure K60.2 Active 28780397 Problem Chronic fatigue R53.82 Active 47238019 Problem Hypertension I10 Active 79864783 ALLERGIES Substance Reaction Event Type Date Status Amoxicillin Unknown Drug Allergy Sep, Active ENCOUNTERS Encounter Location Date Diagnosis [facility] [id number] [place] [address] 88298- 7393 Jun, [facility] [id number] [place] [address] 86187- 5402 May, [facility] [id number] [place] [address] 62478- 0835 May, [facility] [id number] [place] [address] 82141- 6657 Apr, Sleep apnea in adult G47.33 ; Hypertension I10 and Dry eyes H04.123 [facility] [id number] [place] [address] 27630- 3375 Apr, [facility] [id number] [place] [address] 38087- 9519 Apr, [facility] [id number] [place] [address] 14629- 4754 Apr, Generalized anxiety disorder 300.02 [facility] [id number] [place] [address] 45403- 8026 Apr, Generalized anxiety disorder F41.1 [facility] [id number] [place] [address] 36565- 6871 Apr, Left breast mass N63.20 [place] [address] 71403- 1192 Apr, Generalized anxiety disorder F41.1 [facility] [id number] [place] [address] 54537- 0721 Mar, Generalized anxiety disorder 300.02 [facility] [id number] [place] [address] 80901- 2035 Mar, [facility] [id number] [place] [address] 50431- 4435 Mar, Generalized anxiety disorder 300.02 [facility] [id number] [place] [address] 91188- 2892 Mar, Acute serous otitis media of left ear, recurrence not specified H65.02 ; Dizziness R42 and BMI 40.0-44.9, adult Z68.41 [place] [id number] [place] [address] 82734- 9066 February, Hypertension I10 [place] [id number] [place] [address] 01059- 7184 February, Visit for TB skin test Z11.1 ; Encounter for physical examination related to employment Z02.1 ; Hypertension I10 ; Generalized anxiety disorder F41.1 ; BMI 40.0-44.9, adult Z68.41 and Chronic fatigue R53.82 [place] [id number] [place] [address] 05767- 9302 February, Rectal bleeding K62.5 and BMI 40.0-44.9, adult Z68.41 [place] [id number] [place] [address] 05228- 7321 Jan, BMI 40.0-44.9, adult Z68.41 and Skin irritation R23.8 [facility] [address] 03183- 4576 Jan, Generalized anxiety disorder F41.1 [facility] [address] 52235- 3423 Dec, [facility] [address] 69512- 2538 Nov, Body mass index (BMI) of 40.0-44.9 in adult Z68.41 ; Hypertension I10 and Seasonal allergic rhinitis, unspecified trigger J30.2 [place] [address] 72902- 8450 Nov, Hypertension I10 [place] [address] 28509- 2338 Nov, Generalized anxiety disorder 300.02 [facility] [id number] [place] [address] 65323- 0011 Nov, [facility] [address] 76337- 1563 Oct, [facility] [id number] [place] [address] 09241- 9586 Oct, [facility] [address] 05198- 4420 Oct, Acute chest wall pain R07.89 [facility] [id number] [place] [address] 14103- 9827 Oct, [facility] [address] 71913- 8575 Sep, Left breast mass N63.20 [facility] [id number] [place] [address] 37566- 3103 Sep, Left breast mass N63.20 [facility] [address] [address] [address]- 3267 Aug, Hypertension I10 [facility] [id number] [place] [address] 90985- 6168 Aug, Generalized anxiety disorder 300.02 [facility] [id number] [place] [address] 91596- 8289 Jul, Generalized anxiety disorder 300.02 [facility] [id number] [place] [address] 79904- 8979 Jul, Sleep apnea in adult G47.33 [facility] [id number] [place] [address] 99974- 9698 Jul, Hypertension I10 ; Sleep apnea in adult G47.33 ; Body mass index (BMI) of 40.0-44.9 in adult Z68.41 ; Morbid (severe) obesity due to excess calories E66.01 and Female hirsutism L68.0 [facility] [id number] [place] [address] 79813- 9564 Jul, Generalized anxiety disorder 300.02 [facility] [id number] [place] [address] 34341- 0683 Jul, Generalized anxiety disorder 300.02 [facility] [address] [address] Jun, Chronic fatigue R53.82 [facility] [id number] [place] [address] 99733- 0039 Jun, Generalized anxiety disorder F41.1 [facility] [address] [place] [address] 39165- 1299 May, Generalized anxiety disorder 300.02 [facility] [id number] [place] [address] 71292- 5693 Apr, Generalized anxiety disorder F41.1 ; Hypertension I10 ; Hyperlipidemia E78.5 ; Female hirsutism L68.0 and Sleep apnea in adult G47.33 [facility] [id number] [place] [address]- 5611 Mar, Hypertension I10 and Generalized anxiety disorder F41.1 [facility] [address] 03762- 1321 Mar, [facility] [address] 80315- 6915 February, Hypertension I10 and Generalized anxiety disorder F41.1 [facility] [address] 01622- 4082 February, Generalized anxiety disorder 300.02 [facility] [address] 96977 -2263 February, Pelvic pain R10.2 and Painful bladder spasm R30.1 [place] [address] 98673- 7599 Jan, Generalized anxiety disorder 300.02 [place] [address] 39510- 5621 Dec, Obesity, unspecified E66.9 ; Generalized anxiety disorder F41.1 and Hypertension I10 [place] [address] 43410- 0847 15 Nov, 2016 Generalized anxiety disorder F41.1 ; Hypertension I10 ; Depression F32.9 and Obesity, unspecified E66.9 [place] [id number] [place] [address] 41184- 3428 Nov, Generalized anxiety disorder 300.02 [facility] [address] 76644- 8305 Oct, [place] [address] 14239- 0435 Sep, History of pneumonia Z87.01 ; Hypokalemia E87.6 ; Hypertension I10 and Encounter for immunization Z23 [place] [address] 08859- 6205 Jul, [facility] [address] [place] [address] 39606- 8817 Apr, Hypertension I10 ; Hypercholesteremia E78.0 ; Obesity, unspecified E66.9 ; Anxiety F41.9 and Lumbago M54.5 [facility] [address] [place] [address] 00447- 5519 Apr, Depression F32.9 [facility] [id number] [place] [address] 95530- 2180 Mar, Essential (primary) hypertension I10 [place] [id number] [address] Jan [facility] [id number] [place] [address] 61550- 5575 Dec, [facility] [id number] [place] [address] 25699- 8602 Dec, Generalized anxiety disorder F41.1 and Hypertension I10 [facility] [id number] [place] [address] 88262- 9268 Dec, [facility] [id number] [place] [address] 24897- 0730 Dec, Abdominal pain R10.9 [facility] [id number] [place] [address] 01122- 9431 Dec, Left sided abdominal pain of unknown cause R10.30 [facility] [id number] [place] [address] 07796- 7590 Nov, Generalized anxiety disorder 300.02 [facility] [id number] [place] [address] 60339- 9915 Nov, Female hirsutism L68.0 ; Hypertension I10 ; Hyperlipidemia E78.5 ; Depression F32.9 and Anxiety F41.9 [facility] [id number] [place] [address] 88188- 8535 Oct, [place] [address] [place] [address] 32565- 9150 Oct, [facility] [id number] [place] [address] 39123- 7985 Oct, [facility] [id number] [place] [address] 67980- 8064 Oct, [facility] [id number] [place] [address] 89789- 4985 Oct, Well woman exam Z01.419 ; Encounter [...] severity, unspecified obesity type E66.9 [facility] [id number] [place] [address] 49039- 2732 Jun, Generalized anxiety disorder 300.02 [place] [id number] [place] [address] 48132- 9607 Jun, Chest pain 786.50 ; Hypertension 401.9 ; Hyperlipemia 272.4 and Obesity 278.00 [place] [id number] [place] [address] 16426- 9802 Apr, Generalized anxiety disorder 300.02 [facility] [id number] [place] [address] 80638- 0900 Apr, Generalized anxiety disorder 300.02 [facility] [id number] [place] [address] 13894- 0773 Apr, [facility] [id number] [place] [address] 81879- 3023 Apr, [facility] [id number] [place] [address] 43281- 9575 Apr, Abdominal pain 789.00 ; Dehydration 276.51 ; Generalized anxiety disorder 300.02 ; Other and unspecified bipolar disorders 296.89 ; Obesity, unspecified 278.00 ; Family history of hypercholesterolemia V18.19 ; Diarrhea 787.91 ; Sleep apnea in adult 327.23 and Essential hypertension 401.9 [facility] [address] [address]- 6281 Mar, Generalized anxiety disorder 300.02 [facility] [id number] [place] [address] 62710- 4865 February, [facility] [id number] [place] [address] 11653- 7236 Jan, [facility] [id number] [place] [address] 47546- 6106 Jan, [facility] [id number] [place] [address] 82899- 5629 Oct, [facility] [id number] [place] [address] 27891- 3857 Oct, [facility] [address] [place] [address] 53161- 7253 Oct, [facility] [id number] [place] [address] 43010- 0653 Oct, [facility] [address] [address]- 7927 Sep, [facility] [id number] [address]- 1381 Sep, [facility] [address] [address]- 3273 Sep, [facility] [id number] [place] [address] 66066- 3563 Sep, [facility] [address] 5817 Sep, [facility] [id number] [place] [address] 13628- 7824 Sep, [facility] [place] [facility] [address] [id number] [place] [address]- 6236 Sep, [facility] [place] [facility] [address] [id number] [place] 2246 Aug, [facility] [place] [facility] [address] [id number] [place] [address]- 6141 Aug, [facility] [place] [facility] [address] [id number] [place] [address]- 3690 Aug, [facility] [place] [facility] [address] [id number] [place] 4832 Aug, [facility] [place] [facility] [address] [id number] [place] [address]- 3193 Jul, [facility] [place] [facility] [address] [facility] [id number] [place] [address]- 7202 Jul, [facility] [place] [facility] [address] [id number] [place] [address]- 3773 Jul, [facility] [place] [facility] [address] [facility] [id number] [place] [address]- 2893 Jul, [facility] [place] [facility] [address] [facility] [id number] [place] [address]- 5809 Jul, [facility] [place] [facility] [address] [id number] [place] [address]- 7129 Jul, [facility] [place] [facility] [address] [id number] [place] [address]- 1557 Jul, [facility] [place] [facility] [address] [id number] [place] [address]- 8476 Jul, [facility] [place] [facility] [address] [facility] [id number] [place] [address]- 3187 Jun, [facility] [place] [facility] [address] [facility] [id number] [place] [address]- 6224 16 Jun, 2014 [facility] [place] [facility] [address] [id number] [place] [address]- 9496 15 Sep, 2013 [facility] [place] [facility] [address] [id number] [place] [address]- 0696 15 Sep, 2013 [facility] [place] [facility] [address] [id number] [place] [address]- 0336 09 Sep, 2013 [facility] [place] [facility] [address] [id number] [place] [address]- 2627 09 Sep, 2013 [facility] [place] [facility] [address] [id number] [place] [address]- 8203 04 Sep, 2013 [facility] [place] [facility] [address] [id number] [place] [address]- 8217 04 Sep, 2013 [facility] [place] [facility] [address] [id number] [place] [address]- 8582 02 Sep, 2013 [facility] [place] [facility] [address] [id number] [place] [address]- 6831 02 Sep, 2013 [facility] [place] [facility] [address] [id number] [place] [address]- 8968 02 Sep, 2013 [facility] [place] [facility] [address] [id number] [place] [address]- 2549 02 Sep, 2013 [facility] [place] [facility] [address] [id number] [place] [address]- 8308 02 Sep, 2013 [facility] [place] [facility] [address] [id number] [place] [address]- 9758 Jun, 2013 [facility] [place] [facility] [address] [id number] [place] [address] 2544 Sep, 2013 [facility] [place] [facility] [address] [id number] [place] [address]- 2549 Jun, 2013 [facility] [place] [facility] [address] [id number] [place] [address]- 2089 May, 2013 [facility] [place] [facility] [address] [id number] [place] [address]- 1533 May, [facility] [place] [facility] [address] [id number] [place] [address]- 2548 Apr, [facility] [place] [facility] [address] [id number] [place] [address]- 8123 Apr, [facility] [place] [facility] [address] [id number] [place] [address]- 1422 Apr, [facility] [place] [facility] [address] [id number] [place] [address]- 4227 Apr, [facility] [place] [facility] [address] [id number] [place] [address]- 2396 Apr, [facility] [place] [facility] [address] [id number] [place] [address]- 3649 Apr, [facility] [place] [facility] [address] [id number] [place] [address]- 0953 Apr, [facility] [place] [facility] [address] [id number] [place] [address]- 4985 Apr, [facility] [place] [facility] [address] [id number] [place] [address]- 5846 Apr, [facility] [place] [facility] [address] [id number] [place] [address]- 0585 Apr, [facility] [place] [facility] [address] [id number] [place] [address]- 7705 Apr, [facility] [place] [facility] [address] [id number] [place] [address]- 7230 Apr, [facility] [place] [facility] [address] [id number] [place] [address]- 0996 Apr, [facility] [place] [facility] [address] [id number] [place] [address]- 0335 Apr, [facility] [place] [facility] [address] [id number] [place] [address]- 8704 Apr, [facility] [place] [facility] [address] [id number] [place] [address]- 3176 Apr, [facility] [place] [facility] [address] [id number] [place] 5195 Apr, [facility] [place] [facility] [address] [id number] [place] [address]- 6305 Apr, [facility] [place] [facility] [address] [id number] [place] [address]- 4671 Apr, [facility] [place] [facility] [address] [id number] [place] [address]- 2012 Apr, [facility] [place] [facility] [address] [id number] [place] [address]- 2323 Mar, [facility] [place] [facility] [address] [id number] [place] [address]- 1387 Mar, [facility] [place] [facility] [address] [id number] [place] [address]- 5086 February, [facility] [place] [facility] [address] [id number] [place] [address]- 4744 February, [facility] [place] [facility] [address] [id number] [place] [address]- 2428 Jan, [facility] [place] [facility] [address] [id number] [place] [address]- 3857 Jan, [facility] [place] [facility] [address] [id number] [place] [address]- 4992 Jan, [facility] [place] [facility] [address] [id number] [place] [address]- 1038 Jan, [facility] [place] [facility] [address] [id number] [place] [address]- 5056 Dec, [facility] [place] [facility] [address] [id number] [place] [address]- 0824 Dec, [facility] [place] [facility] [address] [id number] [place] [address]- 6052 Oct, [facility] [place] [facility] [address] [id number] [place] [address]- 6162 Oct, [facility] [place] [facility] [address] [id number] [place] [address]- 5754 Oct, [facility] [place] [facility] [address] [id number] [place] [address]- 1636 Oct, [facility] [place] [facility] [address] [id number] [place] [address]- 3686 Aug, [facility] [place] [facility] [address] [id number] [place] [address]- 1407 Aug, [facility] [place] [facility] [address] [id number] [place] [address]- 5026 Aug, [facility] [place] [facility] [address] [id number] [place] [address]- 3825 Aug, [facility] [place] [facility] [address] [id number] [place] [address]- 9949 Jul, [facility] [place] [facility] [address] [id number] [place] [address]- 7428 Jul, [facility] [place] [facility] [address] [id number] [place] [address] Jul, [facility] [place] [facility] [address] [id number] [place] [address] Jun, [facility] [place] [facility] [address] [id number] [place] [address] May, [facility] [place] [facility] [address] [id number] [place] [address] Apr, [facility] [place] [facility] [address] [id number] [place] [address] Apr, [facility] [place] [facility] [address] [id number] [place] [address] Apr, [facility] [place] [facility] [address] [id number] [place] [address] Apr, [facility] [address] [id number] [place] [address] Mar, [facility] [place] [facility] [address] [id number] [place] [address] Mar, [facility] [place] [facility] [address] [id number] [place] [address] Mar, [facility] [place] [facility] [address] [id number] [place] [address] Mar, [facility] [place] [facility] [address] [id number] [place] [address] February, [facility] [place] [facility] [address] [id number] [place] [address] February, [facility] [place] [facility] [address] [id number] [place] [address] February, [facility] [place] [facility] [address] [id number] [place] [address] February, [facility] [place] [facility] [address] [id number] [place] [address] February, [facility] [place] [facility] [address] [id number] [place] [address] Jan, [facility] [place] [facility] [address] [id number] [place] [address] Dec, [facility] [place] [facility] [address] [id number] [place] [address] Nov, [facility] [place] [facility] [address] [id number] [place] [address] Nov, [facility] [place] [facility] [address] [id number] [place] [address] Nov, [facility] [place] [facility] [address] [id number] [place] [address] Oct, [facility] [place] [facility] [address] [id number] [place] [address] Oct, [facility] [address] [id number] [place] [address] Oct, [facility] [place] [facility] [address] [id number] [place] [address] Oct, [facility] [address] [id number] [place] [address] Oct, [facility] [place] [facility] [address] [id number] [place] [address] Oct, [facility] [address] [id number] [place] [address] Sep, [facility] [place] [facility] [address] [id number] [place] [address] Sep, [facility] [place] [facility] [address] [id number] [place] [address] Sep, [facility] [address] [id number] [place] [address] Sep, [facility] [place] [facility] [address] [id number] [place] [address] Aug, [facility] [address] [id number] [place] [address] Aug, [facility] [place] [facility] [address] [id number] [place] [address] Aug, [facility] [place] [facility] [address] [id number] [place] [address] Aug, [facility] [place] [facility] [address] [id number] [place] [address] Aug, [facility] [place] [facility] [address] [id number] [place] [address] Aug, [facility] [place] [facility] [address] [id number] [place] [address] Jul, [facility] [place] [facility] [address] [id number] [place] [address] Jul, [facility] [place] [facility] [address] [id number] [place] [address] Jul, [facility] [place] [facility] [address] [id number] [place] [address] Jul, [facility] [place] [facility] [address] [id number] [place] [address]- [address] Jul, [facility] [place] [facility] [address] [id number] [place] [address] Jul, [facility] [place] [facility] [address] [id number] [place] [address] Jul, [facility] [place] [facility] [address] [id number] [place] [address] Jul, [facility] [place] [facility] [address] [id number] [place] [address] Jul, [facility] [place] [facility] [address] [id number] [place] [address] Jul, [facility] [place] [facility] [address] [id number] [place] [address] 26 Jun, 2012 [facility] [place] [facility] [address] [id number] [place] [address] 14 Jun, 2012 [facility] [place] [facility] [address] [id number] [address] 12 Jun, 2012 [facility] [place] [facility] [address] [id number] [place] [address] May, [facility] [place] [facility] [address] [id number] [place] [address] 16 May, 2012 [facility] [place] [facility] [address] [id number] [place] [address] May, [facility] [place] [facility] [address] [id number] [place] [address] May, [facility] [place] [facility] [address] [id number] [place] [address] Apr, [facility] [place] [facility] [address] [id number] [place] [address] Apr, [facility] [place] [facility] [address] [id number] [place] [address] Apr, [facility] [place] [facility] [address] [id number] [place] [address] Apr, [facility] [place] [facility] [address] [id number] [place] [address] Mar, [facility] [place] [facility] [address] [id number] [place] [address] Mar, [facility] [place] [facility] [address] [id number] [place] [address] Mar, [facility] [place] [facility] [address] [id number] [place] [address] February, [facility] [place] [facility] [address] [id number] [place] [address] February, [facility] [place] [facility] [address] [id number] [place] [address] Jan, [facility] [place] [facility] [address] [id number] [place] [address] 18 Jan, 2012 [facility] [place] [facility] [address] [id number] [place] [address] Jan, [facility] [place] [facility] [address] [id number] [place] [address] 29 Dec, 2011 [facility] [place] [facility] [address] [id number] [place] [address] Dec, [facility] [place] [facility] [address] [id number] [place] [address] Dec, [facility] [place] [facility] [address] [id number] [place] [address] Dec, [facility] [place] [facility] [address] [id number] [place] [address] Nov, [facility] [place] [facility] [address] [id number] [place] [address] Nov, [facility] [place] [facility] [address] [id number] [place] [address] Nov, [facility] [place] [facility] [address] [id number] [place] [address]- [address] 16 Nov, 2011 [facility] [place] [facility] [address] [id number] [place] [address] Nov, [facility] [place] [facility] [address] [id number] [place] [address] Nov, [facility] [place] [facility] [address] [id number] [place] [address] Nov, [facility] [place] [facility] [address] [id number] [place] [address] Oct, [facility] [place] [facility] [address] [id number] [place] [address] Oct, [facility] [place] [facility] [address] [id number] [place] [address] Oct, [facility] [place] [facility] [address] [id number] [place] [address] Oct, [facility] [place] [facility] [address] [id number] [place] [address] 2546 Oct, [facility] [place] [facility] [address] [id number] [place] [address] 2546 Oct, [facility] [place] [facility] [address] [id number] [place] [address] 2547 Oct, [facility] [place] [facility] [address] [id number] [place] [address] 05 Oct, 2011 [facility] [place] [facility] [address] [id number] [place] [address] Sep, [facility] [place] [facility] [address] [id number] [place] [address] Sep, [facility] [place] [facility] [address] [id number] [place] [address] Sep, [facility] [place] [facility] [address] [id number] [place] [address] Sep, [facility] [place] [facility] [address] [id number] [place] [address] Aug, [facility] [place] [facility] [address] [id number] [place] [address] Aug, [facility] [place] [facility] [address] [facility] [id number] [place] [address] Aug, [facility] [place] [facility] [address] [id number] [place] [address] Jul, [facility] [place] [facility] [address] [id number] [place] [address] Jul, [facility] [place] [facility] [address] [facility] [id number] [place] [address] Jul, [facility] [place] [facility] [address] [id number] [place] [address] Oct, [facility] [place] [facility] [address] [id number] [address] Aug, [facility] [place] [facility] [address] [id number] [place] [address] 16 Aug, 2010 [facility] [place] [facility] [address] [facility] [id number] [place] [address] 30 Sep, 2009 [facility] [place] [facility] [address] [facility] [id number] [place] [address] Sep, [facility] [place] [facility] [address] [facility] [id number] [place] [address] Sep, [facility] [address] [facility] [id number] [place] [address] Jan, IMMUNIZATIONS No Known Immunizations SOCIAL HISTORY Never Assessed REASON FOR VISIT Lump on left breast that pt noticed last night and left brest pain for over a month [facility] PLAN OF CARE Activity Details Follow Up prn Reason: VITAL SIGNS Height 64 in 2017-10-02 Weight 250.5 lbs 2017-10-02 Temperature 96.8 degrees Fahrenheit 2017-10-02 Heart Rate 72 bpm 2017-10-02 Respiratory Rate 20 2017-10-02 BMI 42.99 kg/m2 2017-10-02 Blood pressure systolic 126 mmHg 2017-10-02 Blood pressure diastolic 82 mmHg 2017-10-02 MEDICATIONS Medication Instructions Dosage Frequency Start Date End Date Duration Status Super B Complex Not-Taking Probiotic Not-Taking Lorazepam 0.5 MG Orally 2 times a day 1 tablet as needed 12h 15 Dec, 2016 Not-Taking Triamterene-HCTZ 50-25 MG TAKE ONE CAPSULE BY MOUTH IN THE MORNING 30 Active BusPIRone HCl 15 mg Orally Once a day TAKE ONE-HALF TABLET BY MOUTH TWICE DAILY 24h 180 days Active Cymbalta 60 MG Orally, Take with a 30 mg Once a day 1 capsule 24h 30 days Active Cymbalta 30 MG Orally, Take with 60 mg capsule Once a day 1 capsule 24h 06 Jun, 2017 Not-Taking Norgestim-Eth Estrad Triphasic 0.18/0.215/0.25 MG-35 MCG Orally Once a day 1 tablet 24h 17 Jul, 2017 28 day(s) Not-Taking Nadolol 40 mg Orally Once a day 1 tablet 24h 90 days Active RESULTS Name Result Date Reference Range Mammogram Dx, Bilateral 2017-10-11 PROCEDURES No Known procedures INSTRUCTIONS MEDICATIONS ADMINISTERED [...] Surgical History fistula repair Surgical History section 2004 Surgical History tonsillectomy Hospitalization History surgeries
--- OUTSIDE RECORDS SUMMARY | 2018-08-05 07:59 | XMS REPORT ---
Author Author GAMAL CLARK Organization [facility] Address [address] [place] [address] Care Team Providers Care Communications Scientist Name Role Phone GAMAL CLARK Unavailable PROBLEMS Type Condition ICD9-CM Code [id number] Code Onset Dates Condition Status SNOMED Code Problem Rectal bleed K62.5 Active 68603487 Problem Dry eyes H04.123 Active 761782960 Problem Body mass index (BMI) of 40.0-44.9 in adult Z68.41 Active 627784319 Problem Sleep apnea in adult G47.33 Active 88874784 Problem Anal fissure K60.2 Active 16094802 Problem Chronic fatigue R53.82 Active 79126302 Problem Hypertension I10 Active 27323893 ALLERGIES No Information ENCOUNTERS Encounter Location Date Diagnosis [facility] [id number] [place] [address] 35251- 3025 May, [facility] [address] 49044- 6021 May, [facility] [id number] [place] [address] 16973- 7981 Apr, Sleep apnea in adult G47.33 ; Hypertension I10 and Dry eyes H04.123 [facility] [id number] [place] [address] 81651- 6389 Apr, [facility] [id number] [place] [address] 40320- 8445 Apr, [facility] [address] 01575- 9447 Apr, Generalized anxiety disorder 300.02 [facility] [id number] [place] [address] 36496- 5330 Apr, Generalized anxiety disorder F41.1 [facility] [id number] [place] [address] 72532- 1458 Apr, Left breast mass N63.20 [facility] [id number] [place] [address] 29395- 3083 Apr, Generalized anxiety disorder F41.1 [facility] [id number] [place] [address] 55058- 0956 Mar, Generalized anxiety disorder 300.02 [facility] [address] 69801- 0690 Mar, [facility] [address] 54438- 2369 Mar, Generalized anxiety disorder 300.02 [facility] [address] 06761- 5119 Mar, Acute serous otitis media of left ear, recurrence not specified H65.02 ; Dizziness R42 and BMI 40.0-44.9, adult Z68.41 [facility] [id number] [place] [address] 58460- 2082 February, Hypertension I10 [facility] [id number] [place] [address] 00947- 8620 February, Visit for TB skin test Z11.1 ; Encounter for physical examination related to employment Z02.1 ; Hypertension I10 ; Generalized anxiety disorder F41.1 ; BMI 40.0-44.9, adult Z68.41 and Chronic fatigue R53.82 [facility] [id number] [place] [address] 15101- 5470 February, Rectal bleeding K62.5 and BMI 40.0-44.9, adult Z68.41 [facility] [id number] [place] [address] Jan, BMI 40.0-44.9, adult Z68.41 and Skin irritation R23.8 [facility] [address] 31999- 6997 Jan, Generalized anxiety disorder F41.1 [facility] [id number] [place] [address] 12445- 7255 Dec, [facility] [id number] [place] [address] 29257- 5402 Nov, Body mass index (BMI) of 40.0-44.9 in adult Z68.41 ; Hypertension I10 and Seasonal allergic rhinitis, unspecified trigger J30.2 [facility] [id number] [place] [address] 41405- 0618 Nov, Hypertension I10 [facility] [address] 90269- 1099 Nov, Generalized anxiety disorder 300.02 [facility] [address] 95719- 9444 Nov, [facility] [id number] [place] [address] 71405- 7870 Oct, [facility] [id number] [place] [address] 40134- 7928 Oct, [facility] [id number] [place] [address] 30616- 5861 Oct, Acute chest wall pain R07.89 [facility] [id number] [place] [address] 07718- 5124 Oct, [facility] [id number] [place] [address] 62163- 7475 Sep, Left breast mass N63.20 [facility] [id number] [place] [address] 70996- 1478 Sep, Left breast mass N63.20 [facility] [id number] [place] [address] 04653- 9594 Aug, Hypertension I10 [facility] [address] 20910- 5706 Aug, Generalized anxiety disorder 300.02 [facility] [id number] [place] [address] 70725- 4388 Jul, Generalized anxiety disorder 300.02 [facility] [id number] [place] [address] 04334- 7290 Jul, Sleep apnea in adult G47.33 [facility] [address] 47595- 3430 Jul, Hypertension I10 ; Sleep apnea in adult G47.33 ; Body mass index (BMI) of 40.0-44.9 in adult Z68.41 ; Morbid (severe) obesity due to excess calories E66.01 and Female hirsutism L68.0 [facility] [id number] [place] [address] 92203- 6971 Jul, Generalized anxiety disorder 300.02 [facility] [address] 61381- 6913 Jul, Generalized anxiety disorder 300.02 [facility] [id number] [place] [address] 53558 -8329 Jun, Chronic fatigue R53.82 [facility] [id number] [place] [address] 35630- 5833 Jun, Generalized anxiety disorder F41.1 [facility] [id number] [place] [address] 29592- 9867 May, Generalized anxiety disorder 300.02 [facility] [id number] [place] [address] 43817- 1545 Apr, Generalized anxiety disorder F41.1 ; Hypertension I10 ; Hyperlipidemia E78.5 ; Female hirsutism L68.0 and Sleep apnea in adult G47.33 [facility] [id number] [place] [address] 07281- 4955 Mar, Hypertension I10 and Generalized anxiety disorder F41.1 [facility] [address] [place] [address]- 1849 Mar, [facility] [id number] [place] [address] 18368- 5797 February, Hypertension I10 and Generalized anxiety disorder F41.1 [facility] [id number] [place] [address] 54216- 0303 February, Generalized anxiety disorder 300.02 [facility] [address] 98808 -3634 February, Pelvic pain R10.2 and Painful bladder spasm R30.1 [facility] [address] 79764- 6493 Jan, Generalized anxiety disorder 300.02 [facility] [id number] [place] [address] 79038- 8604 Dec, Obesity, unspecified E66.9 ; Generalized anxiety disorder F41.1 and Hypertension I10 [facility] [id number] [place] [address] 17820- 6235 15 Nov, 2016 Generalized anxiety disorder F41.1 ; Hypertension I10 ; Depression F32.9 and Obesity, unspecified E66.9 [facility] [id number] [place] [address] 97477- 2636 Nov, Generalized anxiety disorder 300.02 [facility] [id number] [place] [address] 33526- 6289 Oct, [facility] [id number] [place] [address] 94099- 7391 Sep, History of pneumonia Z87.01 ; Hypokalemia E87.6 ; Hypertension I10 and Encounter for immunization Z23 [facility] [id number] [place] [address] 38061- 1709 Jul, [facility] [id number] [place] [address] 86253- 8267 Apr, Hypertension I10 ; Hypercholesteremia E78.0 ; Obesity, unspecified E66.9 ; Anxiety F41.9 and Lumbago M54.5 [facility] [address] [place] [address] 78400- 7148 Apr, Depression F32.9 [facility] [id number] [place] [address] 08286- 9836 Mar, Essential (primary) hypertension I10 [address] [address] Jan [facility] [id number] [place] [address] 41724- 0005 Dec, [facility] [id number] [place] [address] 93689- 0451 Dec, Generalized anxiety disorder F41.1 and Hypertension I10 [facility] [id number] [place] [address] 75389- 8333 Dec, [facility] [id number] [place] [address] 46177- 5314 Dec, Abdominal pain R10.9 [facility] [id number] [place] [address] 98320- 1421 Dec, Left sided abdominal pain of unknown cause R10.30 [facility] [id number] [place] [address] 97616- 3743 Nov, Generalized anxiety disorder 300.02 [facility] [id number] [place] [address] 61012- 4359 Nov, Female hirsutism L68.0 ; Hypertension I10 ; Hyperlipidemia E78.5 ; Depression F32.9 and Anxiety F41.9 [facility] [id number] [place] [address] 60924- 1117 Oct, [facility] [id number] [place] [address] 62960- 5730 Oct, [facility] [id number] [place] [address] 99697- 2689 Oct, [facility] [id number] [place] [address] 90640- 3557 Oct, [facility] [address] 17680- 4958 Oct, Well woman exam Z01.419 ; Encounter [...] unspecified obesity severity, unspecified obesity type E66.9 [facility] [id number] [place] [address] 49512- 7819 Jun, Generalized anxiety disorder 300.02 [facility] [id number] [place] [address] 06638- 3129 Jun, Chest pain 786.50 ; Hypertension 401.9 ; Hyperlipemia 272.4 and Obesity 278.00 [facility] [id number] [place] [address] 51973- 7163 Apr, Generalized anxiety disorder 300.02 [facility] [id number] [place] [address] 99668- 7236 Apr, Generalized anxiety disorder 300.02 [facility] [id number] [place] [address] 46729- 9258 Apr, [facility] [id number] [place] [address] 10449- 1328 Apr, [facility] [address] 05703- 5887 Apr, Abdominal pain 789.00 ; Dehydration 276.51 ; Generalized anxiety disorder 300.02 ; Other and unspecified bipolar disorders 296.89 ; Obesity, unspecified 278.00 ; Family history of hypercholesterolemia V18.19 ; Diarrhea 787.91 ; Sleep apnea in adult 327.23 and Essential hypertension 401.9 [facility] [address] [place] [address] 68839- 3807 Mar, Generalized anxiety disorder 300.02 [facility] [address] [address]- 3716 February, [facility] [id number] [place] [address] 78022- 3036 Jan, [facility] [id number] [place] [address] 97082- 9722 Jan, [facility] [id number] [place] [address] 06890- 9870 Oct, [facility] [id number] [place] [address] 38902- 3064 Oct, [facility] [id number] [place] [address] 29844- 4820 Oct, [facility] [id number] [place] [address] 54589- 7730 Oct, [facility] [id number] [place] [address] 98048- 0607 Sep, [facility] [address] [address]- 4681 Sep, [facility] [address] [place] [address] 33498- 2545 Sep, [facility] [address] [address]- 2545 Sep, [facility] [id number] [place] [address] 237581- 9666 Sep, [facility] [address] 2308 Sep, [facility] [address] [place] [address] 251000- 2165 Sep, [facility] [place] [facility] [address] [id number] [place] [address]- 6391 Aug, [facility] [place] [facility] [address] [id number] [place] [address]- 5621 Aug, [facility] [place] [facility] [address] [id number] [place] 6608 Aug, [facility] [place] [facility] [address] [id number] [place] [address]- 1899 Aug, [facility] [place] [facility] [address] [id number] [place] [address]- 2328 Jul, [facility] [place] [facility] [address] [id number] [place] [address]- 2978 Jul, [facility] [place] [facility] [address] [id number] [place] [address]- 9710 Jul, [facility] [place] [facility] [address] [id number] [place] [address]- 8181 Jul, [facility] [place] [facility] [address] [id number] [place] [address]- 8736 Jul, [facility] [place] [facility] [address] [id number] [place] [address]- 4369 Jul, [facility] [place] [facility] [address] [id number] [place] [address]- 5531 Jul, [facility] [place] [facility] [address] [id number] [address]- 8191 Jul, [facility] [place] [facility] [address] [id number] [place] [address]- 1384 Jun, [facility] [place] [facility] [address] [id number] [place]- 3265 16 Jun, 2014 [facility] [place] [facility] [address] [id number], [place] [address]- 5292 15 Jun, 2014 [facility] [place] [facility] [address] [id number], [place] [address]- 3503 15 Jun, 2013 [facility] [place] [facility] [address] [id number] [place] [address]- 3057 09 Sep, 2013 [facility] [place] [facility] [address] [id number] [place] [address]- 7268 Jun, 2013 [facility] [place] [facility] [address] [id number] [place] [address]- 8806 Sep, 2013 [facility] [place] [facility] [address] [id number] [place] [address]- 9755 04 Jun, 2013 [facility] [place] [facility] [address] [id number] [place] [address]- 1028 Jun, 2013 [facility] [place] [facility] [address] [id number] [place] [address]- 3129 Jun, 2013 [facility] [place] [facility] [address] [id number] [place] [address]- 0843 Jun, 2013 [facility] [place] [facility] [address] [id number] [place] [address]- 6707 Jun, 2013 [facility] [place] [facility] [address] [id number] [place] [address]- 2295 Jun, 2013 [facility] [place] [facility] [address] [id number] [place] [address]- 6156 Jun, 2013 [facility] [place] [facility] [address] [id number] [place] [address]- 5125 Jun, 2013 [facility] [place] [facility] [address] [id number] [place] [address]- 1604 Jun, 2013 [facility] [place] [facility] [address] [id number] [place] [address]- 3118 May, [facility] [place] [facility] [address] [id number] [place] [address]- 4852 May, [facility] [place] [facility] [address] [id number] [place] [address]- 0636 Apr, [facility] [place] [facility] [address] [id number] [place] [address]- 0963 31 Apr, 2013 [facility] [place] [facility] [address] [id number] [place] [address]- 2596 Apr, 2013 [facility] [place] [facility] [address] [id number] [place] [address]- 1264 Apr, 2013 [facility] [place] [facility] [address] [id number] [place] [address]- 2616 Apr, 2013 [facility] [place] [facility] [address] [id number] [place] [address]- 7726 17 Apr, 2013 [facility] [place] [facility] [address] [id number] [place] [address]- 2019 Apr, 2013 [facility] [place] [facility] [address] [id number] [place] [address]- 8866 16 Apr, 2013 [facility] [place] [facility] [address] [id number] [place] [address]- 6728 Apr, 2013 [facility] [place] [facility] [address] [id number] [place] [address]- 0868 16 Apr, 2013 [facility] [place] [facility] [address] [id number] [place] [address]- 6255 Apr, 2013 [facility] [place] [facility] [address] [id number] [place] [address]- 6453 14 Apr, 2013 [facility] [place] [facility] [address] [id number] [place] [address]- 5714 Apr, 2013 [facility] [place] [facility] [address] [id number] [place] [address]- 7634 Apr, 2013 [facility] [place] [facility] [address] [id number] [place] [address]- 7084 Apr, 2013 [facility] [place] [facility] [address] [id number] [place] [address]- 2429 Apr, 2013 [facility] [place] [facility] [address] [id number] [place] [address]- 3074 Apr, [facility] [place] [facility] [address] [id number] [place] [address]- 8932 Apr, [facility] [place] [facility] [address] [id number] [place] [address]- 8943 Apr, [facility] [place] [facility] [address] [id number] [place] 9001 Apr, [facility] [place] [facility] [address] [id number] [place] [address]- 6007 Mar, [facility] [place] [facility] [address] [id number] [place] [address]- 0265 Mar, [facility] [place] [facility] [address] [id number] [place] [address]- 7278 February, [facility] [place] [facility] [address] [id number] [place] [address]- 3900 February, [facility] [place] [facility] [address] [id number] [place] [address]- 9181 Jan, [facility] [place] [facility] [address] [id number] [place] [address]- 2373 Jan, [facility] [place] [facility] [address] [id number] [place] [address]- 2075 Jan, [facility] [place] [facility] [address] [id number] [place] [address]- 3212 Jan, [facility] [place] [facility] [address] [id number] [place] [address]- 2469 Dec, [facility] [place] [facility] [address] [id number] [place] [address]- 5638 Dec, [facility] [place] [facility] [address] [id number] [place] [address]- 8792 Oct, [facility] [place] [facility] [address] [id number] [place] [address]- 6223 Oct, [facility] [place] [facility] [address] [id number] [place] [address]- 9827 Oct, [facility] [place] [facility] [address] [id number] [place] [address]- 3276 Oct, [facility] [place] [facility] [address] [id number] [place] [address]- 6897 Aug, [facility] [place] [facility] [address] [id number] [place] [address]- 6822 Aug, [facility] [place] [facility] [address] [id number] [place] [address]- 0924 Aug, [facility] [place] [facility] [address] [id number] [place] [address]- 6058 Aug, [facility] [place] [facility] [address] [id number] [place] [address]- 9296 Jul, [facility] [place] [facility] [address] [id number] [place] [address]- 3920 Jul, [facility] [place] [facility] [address] [id number] [place] [address]- 4602 Jul, [facility] [place] [facility] [address] [id number] [place] [address]- 4599 Jun, [facility] [place] [facility] [address] [id number] [place] [address]- 6088 May, [facility] [place] [facility] [address] [id number] [place] [address]- 9677 Apr, [facility] [place] [facility] [address] [id number] [place] [address]- 1282 Apr, [facility] [place] [facility] [address] [id number] [place] [address]- 2759 Apr, [facility] [place] [facility] [address] [id number] [place] [address]- 2936 Apr, [facility] [place] [facility] [address] [id number] [place] [address] Mar, [facility] [place] [facility] [address] [id number] [place] [address] Mar, [facility] [address] [id number] [place] [address] Mar, [facility] [place] [facility] [address] [id number] [place] [address] Mar, [facility] [address] [id number] [place] [address] February, [facility] [address] [id number] [place] [address] February, [facility] [address] [id number] [place] [address] February, [facility] [address] [id number] [place] [address] February, [facility] [address] [id number] [place] [address] February, [facility] [address] [id number] [place] [address] Jan, [facility] [address] [id number] [place] [address] Dec, [facility] [address] [id number] [place] [address] Nov, [facility] [address] [id number] [place] [address] Nov, [facility] [place] [facility] [address] [id number] [place] [address] Nov, [facility] [place] [facility] [address] [id number] [place] [address] Oct, [facility] [place] [facility] [address] [id number] [place] [address] Oct, [facility] [place] [facility] [address] [id number], [place] [address] Oct, [facility] [place] [facility] [address] [id number] [place] [address] Oct, [facility] [place] [facility] [address] [id number] [place] [address] Oct, [facility] [place] [facility] [address] [id number] [place] [address] Oct, [facility] [place] [facility] [address] [id number] [place] [address] Sep, [facility] [place] [facility] [address] [id number] [place] [address] Sep, [facility] [place] [facility] [address] [id number] [place] [address] Sep, [facility] [place] [facility] [address] [id number] [place] [address] Sep, [facility] [place] [facility] [address] [id number] [place] [address] Aug, [facility] [place] [facility] [address] [id number] [place] [address] Aug, [facility] [place] [facility] [address] [id number] [place] [address] Aug, [facility] [place] [facility] [address] [id number], [place] [address] Aug, [facility] [place] [facility] [address] [id number], [place] [address] Aug, [facility] [place] [facility] [address] [id number] [place] [address] Aug, [facility] [place] [facility] [address] [id number] [place] [address] Jul, [facility] [place] [facility] [address] [id number] [place] [address] Jul, [facility] [place] [facility] [address] [id number] [place] [address] Jul, [facility] [place] [facility] [address] [id number] [place] [address] Jul, [facility] [place] [facility] [address] [id number] [place] [address] Jul, [facility] [place] [facility] [address] [id number] [place] [address] Jul, [facility] [place] [facility] [address] [id number] [place] [address] Jul, [facility] [place] [facility] [address] [id number] [place] [address] Jul, [facility] [place] [facility] [address] [id number] [place] [address] Jul, [facility] [place] [facility] [address] [id number] [place] [address] Jul, [facility] [place] [facility] [address] [id number] [place] [address] Jun, [facility] [place] [facility] [address] [id number] [place] [address]- [address] 14 Jun, 2012 [facility] [place] [facility] [address] [id number] [place] [address] Jun, [facility] [place] [facility] [address] [id number] [place] [address] May, [facility] [place] [facility] [address] [id number] [place] [address] May, [facility] [place] [facility] [address] [id number] [place] [address] May, [facility] [place] [facility] [address] [id number] [place] [address] May, [facility] [place] [facility] [address] [id number] [place] [address] Apr, [facility] [place] [facility] [address] [address] [id number] [place] [address] 30 Apr, 2012 [facility] [place] [facility] [address] [id number] [place] [address] Apr, [facility] [place] [facility] [address] [id number] [place] [address] Apr, [facility] [place] [facility] [address] [id number] [place] [address] Mar, [facility] [place] [facility] [address] [id number] [place] [address] Mar, [facility] [place] [facility] [address] [id number] [place] [address] Mar, [facility] [place] [facility] [address] [id number] [place] [address] February, [facility] [place] [facility] [address] [id number] [place] [address] February, [facility] [place] [facility] [address] [id number] [place] [address] Jan, [facility] [place] [facility] [address] [id number] [place] [address] Jan, [facility] [place] [facility] [address] [id number] [place] [address] Jan, [facility] [place] [facility] [address] [id number] [place] [address] 29 Dec, 2011 [facility] [place] [facility] [address] [id number] [place] [address] 14 Dec, 2011 [facility] [place] [facility] [address] [id number] [place] [address] 14 Dec, 2011 [facility] [place] [facility] [address] [id number] [place] [address] 08 Dec, 2011 [facility] [place] [facility] [address] [id number] [place] [address] 29 Nov, 2011 [facility] [address] [id number] [place] [address] Nov, [facility] [place] [facility] [address] [id number] [place] [address] 20 Nov, 2011 [facility] [address] [id number] [place] [address] 16 Nov, 2011 [facility] [address] [id number] [place] [address] Nov, [facility] [address] [id number] [place] [address] 06 Nov, 2011 [facility] [address] [id number] [place] [address] Nov, [facility] [address] [id number] [place] [address] Oct, [facility] [address] [id number] [place] [address] Oct, [facility] [address] [id number] [place] [address] Oct, [facility] [address] [id number] [place] [address] Oct, [facility] [address] [id number] [place] [address] 254 Oct, [facility] [address] [id number] [place] [address] Oct, [facility] [place] [facility] [address] [id number] [place] [address] Oct, [facility] [place] [facility] [address] [id number] [place] [address] Oct, [facility] [address] [id number] [place] [address] Sep, [facility] [place] [facility] [address] [id number] [place] [address] Sep, [facility] [place] [facility] [address] [id number] [place] [address] Sep, [facility] [place] [facility] [address] [id number] [place] [address] Sep, [facility] [place] [facility] [address] [id number] [place] [address] Aug, [facility] [place] [facility] [address] [id number] [place] [address] Aug, [facility] [place] [facility] [address] [id number] [place] [address] Aug, [facility] [place] [facility] [address] [id number] [place] [address] Jul, [facility] [place] [facility] [address] [id number] [place] [address] Jul, [facility] [place] [facility] [address] [id number] [place] [address] Jul, [facility] [place] [facility] [address] [id number], [place] [address] Oct, [facility] [place] [facility] [address] [id number], [place] [address] Aug, [facility] [place] [facility] [address] [id number], [place] [address] Aug, [facility] [place] [facility] [address] [id number] [place] [address] Sep, [facility] [place] [facility] [address] [id number], [place] [address] Sep, [facility] [place] [facility] [address] [facility] [id number], [place] [address] Sep, [facility] [place] [facility] [address] [id number], [place] [address] Jan, IMMUNIZATIONS No Known Immunizations SOCIAL HISTORY Never Assessed REASON FOR VISIT Medication refill request PLAN OF CARE VITAL SIGNS MEDICATIONS Medication Instructions Dosage Frequency Start Date End Date Duration Status Cymbalta 60 MG TAKE ONE CAPSULE BY MOUTH ONCE DAILY ALONG WITH CYMBALTA 30 MG 30 Active RESULTS No Results PROCEDURES No Known [...]
--- OUTSIDE RECORDS SUMMARY | 2018-08-05 07:59 | XMS REPORT ---
Author Author GAMAL CLARK Organization [facility] Address [address] [place] [address] Care Team Providers Care Top Case Assembler Name Role Phone GAMAL CLARK Unavailable PROBLEMS Type Condition ICD9-CM Code ODS46-AA Code Onset Dates Condition Status SNOMED Code Problem Body mass index (BMI) of 40.0-44.9 in adult Z68.41 Active 353435048 Problem Chronic fatigue R53.82 Active 31130592 Problem Anal fissure K60.2 Active 36302679 Problem Rectal bleed K62.5 Active 22852490 Problem Hypertension I10 Active 73894769 Problem Sleep apnea in adult G47.33 Active 89511466 ALLERGIES No Information ENCOUNTERS Encounter Location Date Diagnosis [facility] [address] [address] May, [facility] [address] [address]- 64[address] Apr, [facility] [id number] [place] [address] 43290- 9827 Apr, [facility] [id number] [place] [address] 25502- 3128 Apr, Left breast mass N63.20 [facility] [id number] [place] [address] 57931- 1168 Apr, Generalized anxiety disorder F41.1 [facility] [address] [address]14- 4823 Mar, Generalized anxiety disorder 300.02 [facility] [address] [address]- [address]88 Mar, [facility] [address] 7[address]47- 8096 Mar, Generalized anxiety disorder 300.02 [facility] [id number] [place] [address] 71349- 9695 Mar, Acute serous otitis media of left ear, recurrence not specified H65.02 ; Dizziness R42 and BMI 40.0-44.9, adult Z68.41 [facility] [id number] [place] [address] 16814- 6901 February, Hypertension I10 [facility] [address] 39845- 3231 February, Visit for TB skin test Z11.1 ; Encounter for physical examination related to employment Z02.1 ; Hypertension I10 ; Generalized anxiety disorder F41.1 ; BMI 40.0-44.9, adult Z68.41 and Chronic fatigue R53.82 [facility] [address] [address]- 5493 February, Rectal bleeding K62.5 and BMI 40.0-44.9, adult Z68.41 [facility] [address] 44247- 9579 Jan, BMI 40.0-44.9, adult Z68.41 and Skin irritation R23.8 [facility] [id number] [place] [address] 46770- 5483 Jan, Generalized anxiety disorder F41.1 [facility] [id number] [place] [address] 81287- 1151 Dec, [facility] [id number] [place] [address] 36427- 8704 Nov, Body mass index (BMI) of 40.0-44.9 in adult Z68.41 ; Hypertension I10 and Seasonal allergic rhinitis, unspecified trigger J30.2 [facility] [id number] [place] [address] 16821- 1372 Nov, Hypertension I10 [facility] [address] [place] [address] 7571 06 Nov, 2017 Generalized anxiety disorder 300.02 [facility] [id number] [place] [address] 86235- 6725 02 Nov, 2017 [facility] [id number] [place] [address] 40300- 1922 Oct, [facility] [id number] [place] [address] 08110- 5611 Oct, [facility] [id number] [place] [address] 26365- 3228 Oct, Acute chest wall pain R07.89 [facility] [id number] [place] [address] 80848- 9582 Oct, [facility] [id number] [place] [address] 01807- 2798 Sep, Left breast mass N63.20 [facility] [id number] [place] [address] 37503- 6384 Sep, Left breast mass N63.20 [facility] [id number] [place] [address] 32158- 5621 Aug, Hypertension I10 [facility] [id number] [place] [address] 10783- 8051 07 Aug, 2017 Generalized anxiety disorder 300.02 [facility] [id number] [place] [address] 06061- 0212 Jul, Generalized anxiety disorder 300.02 [facility] [id number] [place] [address] 88291- 7041 Jul, Sleep apnea in adult G47.33 [facility] [id number] [place] [address] 32170- 8224 Jul, Hypertension I10 ; Sleep apnea in adult G47.33 ; Body mass index (BMI) of 40.0-44.9 in adult Z68.41 ; Morbid (severe) obesity due to excess calories E66.01 and Female hirsutism L68.0 [facility] [id number] [place] [address] 79691- 3106 Jul, Generalized anxiety disorder 300.02 [facility] [id number] [place] [address] 97430- 2949 Jul, Generalized anxiety disorder 300.02 [facility] [id number] [place] [address] 80147 -5416 Jun, Chronic fatigue R53.82 [facility] [address] 85811- 1466 Jun, Generalized anxiety disorder F41.1 [facility] [address] 65068- 2935 May, Generalized anxiety disorder 300.02 [facility] [id number] [place] [address] 67881- 6880 Apr, Generalized anxiety disorder F41.1 ; Hypertension I10 ; Hyperlipidemia E78.5 ; Female hirsutism L68.0 and Sleep apnea in adult G47.33 [facility] [id number] [place] [address] 87272- 3296 Mar, Hypertension I10 and Generalized anxiety disorder F41.1 [facility] [id number] [place] [address] 02853- 0732 Mar, [facility] [id number] [place] [address] 76271- 1877 February, Hypertension I10 and Generalized anxiety disorder F41.1 [facility] [id number] [place] [address] 81059- 8914 February, Generalized anxiety disorder 300.02 [facility] [id number] [place] [address] 65994 -9559 February, Pelvic pain R10.2 and Painful bladder spasm R30.1 [facility] [id number] [place] [address] 87811- 0961 Jan, Generalized anxiety disorder 300.02 [facility] [address] [address]- 6535 Dec, Obesity, unspecified E66.9 ; Generalized anxiety disorder F41.1 and Hypertension I10 [facility] [id number] [place] [address] 20964- 6853 Nov, Generalized anxiety disorder F41.1 ; Hypertension I10 ; Depression F32.9 and Obesity, unspecified E66.9 [facility] [address] [place] [address] 54611- 4129 Nov, Generalized anxiety disorder 300.02 [facility] [id number] [place] [address] 68628- 5988 Oct, [facility] [id number] [place] [address] 70094- 2034 Sep, History of pneumonia Z87.01 ; Hypokalemia E87.6 ; Hypertension I10 and Encounter for immunization Z23 [facility] [address] [place] [address] 25448- 9318 Jul, [facility] [id number] [place] [address] 44335- 6056 Apr, Hypertension I10 ; Hypercholesteremia E78.0 ; Obesity, unspecified E66.9 ; Anxiety F41.9 and Lumbago M54.5 [facility] [address] [place] [address] 42222- 8909 Apr, Depression F32.9 [facility] [address] [place] [address] 97556- 7546 Mar, Essential (primary) hypertension I10 [facility] [id number] [place] [address] Jan [facility] [address] [place] [address]- 9078 Dec, [facility] [id number] [place] [address] 27312- 7992 Dec, Generalized anxiety disorder F41.1 and Hypertension I10 [facility] [id number] [place] [address] 17958- 2214 Dec, [facility] [id number] [place] [address] 02588- 2925 Dec, Abdominal pain R10.9 [facility] [id number] [place] [address] 30937- 4235 Dec, Left sided abdominal pain of unknown cause R10.30 [facility] [id number] [place] [address] 03957- 6811 24 Nov, 2015 Generalized anxiety disorder 300.02 [facility] [id number] [place] [address] 69280- 2745 Nov, Female hirsutism L68.0 ; Hypertension I10 ; Hyperlipidemia E78.5 ; Depression F32.9 and Anxiety F41.9 [facility] [id number] [place] [address] 37187- 1590 Oct, [facility] [id number] [place] [address] 86398- 1012 Oct, [facility] [id number] [place] [address] 46714- 6824 Oct, [facility] [id number] [place] [address] 59995- 2334 Oct, [facility] [id number] [place] [address] 59134- 5151 Oct, Well woman exam Z01.419 ; Encounter [...] obesity severity, unspecified obesity type E66.9 [facility] [id number] [place] [address] 19809- 7559 Jun, Generalized anxiety disorder 300.02 [facility] [id number] [place] [address] 40434- 9448 Jun, Chest pain 786.50 ; Hypertension 401.9 ; Hyperlipemia 272.4 and Obesity 278.00 [facility] [id number] [place] [address] 90260- 1037 Apr, Generalized anxiety disorder 300.02 [facility] [id number] [place] [address] 41679- 2773 Apr, Generalized anxiety disorder 300.02 [facility] [id number] [place] [address] 61376- 2246 Apr, [facility] [id number] [place] [address] 76439- 3685 Apr, [facility] [id number] [place] [address] 78722- 6719 Apr, Abdominal pain 789.00 ; Dehydration 276.51 ; Generalized anxiety disorder 300.02 ; Other and unspecified bipolar disorders 296.89 ; Obesity, unspecified 278.00 ; Family history of hypercholesterolemia V18.19 ; Diarrhea 787.91 ; Sleep apnea in adult 327.23 and Essential hypertension 401.9 [facility] [address] [place] [id number] [place] [address] 43702- 7603 Mar, Generalized anxiety disorder 300.02 [facility] [id number] [place] [address] 15955- 2439 February, [facility] [address] [place] [id number] [place] [address] 95355- 6417 Jan, [facility] [id number] [place] [address] 30763- 6531 Jan, [facility] [id number] [place] [address] 07454- 0556 Oct, [facility] [place] [facility] [address] [id number] [place] [address]- 7269 Oct, [facility] [place] [facility] [address] [id number] [place] [address]- 3743 Oct, [facility] [place] [facility] [address] [id number] [place] [address]- 3095 Oct, [facility] [place] [facility] [address] [id number] [place] [address]- 0537 Sep, [facility] [place] [facility] [address] [id number] [place] [address]- 3364 Sep, [facility] [place] [facility] [address] [id number] [place] [address]- 2703 Sep, [facility] [place] [facility] [address] [id number] [place] [address]- 2446 Sep, [facility] [place] [facility] [address] [id number] [place] [address]- 3638 Sep, [facility] [place] [facility] [address] [id number] [place] [address]- 1360 Sep, [facility] [place] [facility] [address] [id number] [place] [address]- 7763 Sep, [facility] [place] [facility] [address] [id number], [place] [address]- 6368 Aug, [facility] [place] [facility] [address] [id number], [place] [address]- 5112 Aug, [facility] [place] [facility] [address] [id number] [place] [address]- 8564 Aug, [facility] [place] [facility] [address] [id number] [place] [address]- 0415 Aug, [facility] [place] [facility] [address] [id number] [place] [address]- 3778 Jul, [facility] [place] [facility] [address] [id number] [place] [address]- 1031 30 Jul, 2013 [facility] [place] [facility] [address] [id number] [place] [address]- 2874 30 Jul, 2014 [facility] [place] [facility] [address] [id number] [place] [address]- 6369 30 Jul, 2014 [facility] [place] [facility] [address] [id number] [place] [address]- 7689 Jul, [facility] [place] [facility] [address] [id number] [place] [address]- 6672 14 Jul, 2014 [facility] [place] [facility] [address] [id number] [place] [address]- 4987 Jul, [facility] [place] [facility] [address] [id number] [place] [address]- 3495 Jul, [facility] [place] [facility] [address] [id number] [place] [address]- 1148 16 Jun, 2013 [facility] [place] [facility] [address] [id number] [place] [address]- 1523 16 Jun, 2013 [facility] [place] [facility] [address] [id number] [place] [address]- 4805 15 Jun, 2013 [facility] [place] [facility] [address] [id number] [place] [address]- 2280 15 Jun, 2013 [facility] [place] [facility] [address] [id number] [place] [address]- 2545 09 Sep, 2013 [facility] [place] [facility] [address] [id number] [place] [address]- 2540 09 Sep, 2013 [facility] [place] [facility] [address] [id number] [place] [address]- 8101 04 Sep, 2013 [facility] [place] [facility] [address] [id number] [place] [address]- 2548 04 Sep, 2013 [facility] [place] [facility] [address] [id number] [place] [address]- 1045 02 Sep, 2013 [facility] [place] [facility] [address] [id number] [place] [address]- 5673 Jun, 2013 [facility] [place] [facility] [address] [id number] [place] [address]- 3704 Jun, 2013 [facility] [place] [facility] [address] [id number] [place] [address]- 4035 Jun, 2013 [facility] [place] [facility] [address] [id number] [place] [address]- 4601 Jun, 2013 [facility] [place] [facility] [address] [id number] [place] [address]- 9968 Jun, 2013 [facility] [place] [facility] [address] [id number] [place] [address]- 0969 Jun, 2013 [facility] [place] [facility] [address] [id number] [place] [address]- 9647 Jun, 2013 [facility] [place] [facility] [address] [id number] [place] [address]- 0333 May, [facility] [place] [facility] [address] [id number] [place] [address]- 4186 May, [facility] [place] [facility] [address] [id number] [place] [address]- 6927 Apr, [facility] [place] [facility] [address] [id number] [place] [address]- 4350 Apr, [facility] [place] [facility] [address] [id number] [place] [address]- 1545 Apr, [facility] [place] [facility] [address] [id number] [place] [address]- 0911 Apr, [facility] [place] [facility] [address] [id number] [place] [address]- 1038 Apr, [facility] [place] [facility] [address] [id number] [place] [address]- 8260 Apr, [facility] [place] [facility] [address] [id number] [place] [address]- 3194 16 Apr, 2013 [facility] [place] [facility] [address] [id number] [place] [address]- 2434 16 Apr, 2013 [facility] [place] [facility] [address] [id number] [place] [address]- 3078 Apr, 2013 [facility] [place] [facility] [address] [id number] [place] [address]- 7063 16 Apr, 2013 [facility] [place] [facility] [address] [id number] [place] [address]- 4019 Apr, 2013 [facility] [place] [facility] [address] [id number] [place] [address]- 7624 Apr, 2013 [facility] [place] [facility] [address] [id number] [place] [address]- 6629 Apr, 2013 [facility] [place] [facility] [address] [id number] [place] [address]- 2020 Apr, 2013 [facility] [place] [facility] [address] [id number] [place] [address]- 4105 Apr, 2013 [facility] [place] [facility] [address] [id number] [place] [address]- 7438 Apr, 2013 [facility] [place] [facility] [address] [id number] [place] [address]- 7258 Apr, 2013 [facility] [place] [facility] [address] [id number] [place] [address]- 0235 Apr, 2013 [facility] [place] [facility] [address] [id number] [place] [address]- 5521 Apr, [facility] [place] [facility] [address] [id number] [place] [address]- 7835 Apr, [facility] [place] [facility] [address] [id number] [place] [address]- 3740 Mar, [facility] [place] [facility] [address] [id number] [place] [address]- 5845 Mar, [facility] [place] [facility] [address] [id number] [place] [address]- 2364 February, [facility] [place] [facility] [address] [id number] [place] [address]- 9140 February, [facility] [place] [facility] [address] [id number] [place] [address]- 9116 Jan, [facility] [place] [facility] [address] [id number] [place] [address]- 5220 Jan, [facility] [place] [facility] [address] [id number] [place] [address]- 9811 Jan, [facility] [place] [facility] [address] [id number] [place] [address]- 3333 Jan, [facility] [place] [facility] [address] [id number] [place] [address]- 4253 Dec, [facility] [place] [facility] [address] [id number] [place] [address]- 5883 Dec, [facility] [place] [facility] [address] [id number] [place] [address]- 0001 Oct, [facility] [place] [facility] [address] [id number] [place] [address]- 0606 Oct, [facility] [place] [facility] [address] [id number] [place] [address]- 9926 Oct, [facility] [place] [facility] [address] [id number] [place] [address]- 1762 Oct, [facility] [place] [facility] [address] [id number] [place] [address]- 0625 Aug, [facility] [place] [facility] [address] [id number] [place] [address]- 5832 Aug, [facility] [place] [facility] [address] [id number] [place] [address]- 6271 Aug, [facility] [place] [facility] [address] [id number] [place] [address]- 2485 Aug, [facility] [place] [facility] [address] [id number] [place] [address]- 0985 Jul, [facility] [place] [facility] [address] [id number] [place] [address]- 5358 Jul, [facility] [place] [facility] [address] [id number] [place] [address]- 7689 Jul, [facility] [place] [facility] [address] [id number] [place] [address]- 1552 Jun, [facility] [place] [facility] [address] [id number] [place] [address]- 5814 May, [facility] [place] [facility] [address] [id number] [place] [address] Apr, [facility] [place] [facility] [address] [id number] [place] [address] Apr, [facility] [place] [facility] [address] [id number] [place] [address] Apr, [facility] [place] [facility] [address] [id number] [place] [address] Apr, [facility] [place] [facility] [address] [id number] [place] [address] Mar, [facility] [place] [facility] [address] [id number] [place] [address] Mar, [facility] [place] [facility] [address] [id number], [place] [address] Mar, [facility] [place] [facility] [address] [id number] [place] [address] Mar, [facility] [place] [facility] [address] [id number] [place] [address] February, [facility] [place] [facility] [address] [id number] [place] [address] February, [facility] [place] [facility] [address] [id number] [place] [address] February, [facility] [place] [address] [id number] [place] [address] February, [facility] [address] [id number] [place] [address] February, [facility] [address] [id number] [place] [address] Jan, [facility] [address] [id number] [place] [address] Dec, [facility] [address] [id number] [place] [address] Nov[facility] [address] [id number] [place] [address] Nov, [facility] [address] [id number] [place] [address] Nov, [facility] [address] [id number] [place] [address] Oct, [facility] [address] [id number] [place] [address] Oct, [facility] [address] [id number] [place] [address] Oct, [facility] [address] [id number] [place] [address] Oct, [facility] [address] [id number] [place] [address] Oct, [facility] [address] [id number] [place] [address] Oct, [facility] [address] [id number] [place] [address] Sep, [facility] [address] [id number] [place] [address] Sep, [facility] [place] [facility] [address] [id number] [place] [address] Sep, [facility] [place] [facility] [address] [id number] [place] [address] Sep, [facility] [place] [facility] [address] [id number] [place] [address] Aug, [facility] [place] [facility] [address] [id number] [place] [address] Aug, [facility] [place] [facility] [address] [id number] [place] [address] Aug, [facility] [place] [facility] [address] [id number] [place] [address] Aug, [facility] [place] [facility] [address] [facility] [id number] [place] [address] Aug, [facility] [place] [facility] [address] [id number] [place] [address]- [address] Aug, [facility] [place] [facility] [address] [id number] [place] [address] Jul, [facility] [place] [facility] [address] [id number] [place] [address] Jul, [facility] [place] [facility] [address] [facility] [id number], [place] [address] Jul, [facility] [place] [facility] [address] [id number], [place] [address] Jul, [facility] [place] [facility] [address] [id number] [place] [address] Jul, [facility] [place] [facility] [address] [id number] [place] [address] Jul, [facility] [place] [facility] [address] [facility] [id number][place] [address] Jul, [facility] [place] [facility] [address] [id number], [place] [address] Jul, [facility] [place] [facility] [address] [id number] [place] [address] Jul, [facility] [place] [facility] [address] [id number] [place] [address] Jul, [facility] [place] [facility] [address] [id number] [place] [address] Jun, [facility] [place] [facility] [address] [id number] [place] [address]- [address] Jun, [facility] [place] [facility] [address] [id number] [place] [address]- [address] Jun, [facility] [place] [facility] [address] [id number] [place] [place] [address] May, [facility] [place] [facility] [address] [id number] [place] [address] May, [facility] [place] [facility] [address] [id number] [place] [address] May, [facility] [place] [facility] [address] [id number] [place] [address] May, [facility] [place] [facility] [address] [id number] [place] [address] Apr, [facility] [place] [facility] [address] [id number] [place] [address] Apr, [facility] [place] [facility] [address] [id number] [place] [address] Apr, [facility] [place] [facility] [address] [id number] [place] [address] Apr, [facility] [place] [facility] [address] [id number] [place] [address] Mar, [facility] [place] [facility] [address] [id number] [place] [address] Mar, [facility] [place] [facility] [address] [id number] [place] [address] Mar, [facility] [place] [facility] [address] [id number] [place] [address] February, [facility] [place] [facility] [address] [id number] [place] [address] February, [facility] [place] [facility] [address] [id number] [place] [address] Jan, [facility] [place] [facility] [address] [id number] [place] [address] Jan, [facility] [place] [facility] [address] [id number] [place] [address] 1992 Jan, [facility] [place] [facility] [address] [id number] [place] [address] Dec, [facility] [place] [facility] [address] [id number] [place] [address] Dec, [facility] [place] [facility] [address] [id number] [place] [address] 14 Dec, 2011 [facility] [place] [facility] [address] [id number] [place] [address] Dec, [facility] [place] [facility] [address] [id number] [place] [address] 29 Nov, 2011 [facility] [place] [facility] [address] [id number] [place] [address] Nov, [facility] [place] [facility] [address] [id number] [place] [address] 20 Nov, 2011 [facility] [place] [facility] [address] [id number] [place] [address] 16 Nov, 2011 [facility] [place] [facility] [address] [id number] [place] [address] 09 Nov, 2011 [facility] [place] [facility] [address] [id number] [place] [address] Nov, [facility] [address] [id number] [place] [address] Nov, [facility] [address] [id number] [place] [address] Oct, [facility] [address] [id number] [place] [address] Oct, [facility] [place] [facility] [address] [id number] [place] [address] 269[address] Oct, [facility] [address] [id number] [place] [address] Oct, [facility] [address] [id number] [place] [address] Oct, [facility] [address] [id number] [place] [address] Oct, [facility] [address] [id number] [place] [address] Oct, [facility] [address] [id number] [place] [address] Oct, [facility] [address] [id number] [place] [address] Sep, [facility] [address] [id number] [place] [address] Sep, [facility] [place] [facility] [address] [id number] [place] [address] Sep, [facility] [place] [facility] [address] [id number] [place] [address] Sep, [facility] [place] [facility] [address] [id number] [place] [address] Aug, [facility] [place] [facility] [address] [id number] [place] [address] Aug, [facility] [place] [facility] [address] [facility] [id number], [place] [address] Aug, [facility] [address] [facility] [id number], [place] [address] Jul, [facility] [address] [facility] [id number] [address] Jul, [facility] [address] [facility] [id number] [address] Jul, [facility] [address] [facility] [id number], [place] [address] Oct, [facility] [id number] [address] Aug, [facility] [address] [facility] [id number], [place] [address] Aug, [facility] [id number], [place] [address] Sep, [facility] [id number], [place] [address] Sep, [facility] [id number] [address] Sep, [facility] [address] [id number], [place] [address] Jan, IMMUNIZATIONS No Known Immunizations SOCIAL HISTORY Never Assessed REASON FOR VISIT Refill Request PLAN OF CARE VITAL SIGNS MEDICATIONS Medication [...]
[2018-08-05 08:00] VITALS: BP 125/87
--- OUTSIDE RECORDS SUMMARY | 2018-08-05 08:00 | XMS REPORT ---
Author Author OSVALDO RODRIGUEZ [facility] Address [address] [place] [address] Care Team Providers Care Manager Data Warehousing Name Role Phone OSVALDO RODRIGUEZ Unavailable PROBLEMS Type Condition ICD9-CM Code XNJ44-HG Code Onset Dates Condition Status SNOMED Code Problem Generalized anxiety disorder F41.1 Active 028135173 Problem Family history of hypercholesterolemia Z83.49 Active 639501838 Problem Obesity, unspecified E66.9 Active 773422116 Problem Rectal bleeding K62.5 Active 71676756 Problem Body mass index (BMI) of 40.0-44.9 in adult Z68.41 Active 195467009 Problem Left sided abdominal pain of unknown cause R10.30 Active 129610044 Problem Hypercholesteremia E78.0 Active 63153321 Problem Morbid (severe) obesity due to excess calories E66.01 Active 481049423 Problem Chronic fatigue R53.82 Active 28613580 Problem Hyperlipidemia E78.5 Active 71616143 Problem Sleep apnea in adult G47.33 Active 11655089 Problem Seborrheic keratoses L82.1 Active 735189264 Problem Lumbago M54.5 Active 039444845 Problem Female hirsutism L68.0 Active 37304691 Problem Hypertension I10 Active 60795199 ALLERGIES No Information ENCOUNTERS Encounter Location Date Diagnosis [facility] [address] [id number] [address] February, [facility] [id number] [place] [address] 68958- 5322 February, Rectal bleeding K62.5 and BMI 40.0-44.9, adult Z68.41 [facility] [id number] [place] [address] 87257- 8183 Jan, BMI 40.0-44.9, adult Z68.41 and Skin irritation R23.8 [facility] [id number] [place] [address] 48775- 4665 Jan, Generalized anxiety disorder F41.1 [facility] [id number] [place] [address] 39567- 1513 Dec, [facility] [address] [address]- [address] Nov, Body mass index (BMI) of 40.0-44.9 in adult Z68.41 ; Hypertension I10 and Seasonal allergic rhinitis, unspecified trigger J30.2 [facility] [address] [address]- 8849 Nov, Hypertension I10 [facility] [id number] [place] [address] 91592- 9972 Nov, Generalized anxiety disorder 300.02 [facility] [address] 82158- 4996 Nov, [facility] [id number] [place] [address] 77774- 6886 Oct, [facility] [id number] [place] [address] 49793- 5687 Oct, [facility] [id number] [place] [address] 83066- 8473 Oct, Acute chest wall pain R07.89 [facility] [id number] [place] [address] 98471- 2481 Oct, [facility] [id number] [place] [address] 11904- 8422 Sep, Left breast mass N63.20 [facility] [id number] [place] [address] 29844- 7189 Sep, Left breast mass N63.20 [facility] [id number] [place] [address] 19213- 2087 Aug, Hypertension I10 [facility] [id number] [place] [address] 04934- 9345 Aug, Generalized anxiety disorder 300.02 [facility] [id number] [place] [address] 23371- 4882 Jul, Generalized anxiety disorder 300.02 [facility] [id number] [place] [address] 04802- 7333 Jul, Sleep apnea in adult G47.33 [facility] [address] 65449- 4191 Jul, Hypertension I10 ; Sleep apnea in adult G47.33 ; Body mass index (BMI) of 40.0-44.9 in adult Z68.41 ; Morbid (severe) obesity due to excess calories E66.01 and Female hirsutism L68.0 [facility] [id number] [place] [address] 54379- 2173 Jul, Generalized anxiety disorder 300.02 [facility] [id number] [place] [address] 16332- 8941 Jul, Generalized anxiety disorder 300.02 [facility] [id number] [place] [address] 74439 -9574 Jun, Chronic fatigue R53.82 [facility] [id number] [place] [address] 14985- 4993 Jun, Generalized anxiety disorder F41.1 [facility] [id number] [place] [address] 02134- 9707 May, Generalized anxiety disorder 300.02 [facility] [id number] [place] [address] 34484- 2587 Apr, Generalized anxiety disorder F41.1 ; Hypertension I10 ; Hyperlipidemia E78.5 ; Female hirsutism L68.0 and Sleep apnea in adult G47.33 [facility] [id number] [place] [address] 72062- 3552 Mar, Hypertension I10 and Generalized anxiety disorder F41.1 [facility] [id number] [place] [address] 37600- 2498 Mar, [facility] [address] 96802- 2873 February, Hypertension I10 and Generalized anxiety disorder F41.1 [facility] [address] 95284- 4752 February, Generalized anxiety disorder 300.02 [facility] [address] [address] -80[address] February, Pelvic pain R10.2 and Painful bladder spasm R30.1 [facility] [address] 31875- 6244 Jan, Generalized anxiety disorder 300.02 [facility] [address] 12644- 5959 Dec, Obesity, unspecified E66.9 ; Generalized anxiety disorder F41.1 and Hypertension I10 [facility] [address] 57583- 6448 Nov, Generalized anxiety disorder F41.1 ; Hypertension I10 ; Depression F32.9 and Obesity, unspecified E66.9 [facility] [id number] [place] [address] 52553- 9526 Nov, Generalized anxiety disorder 300.02 [facility] [id number] [place] [address] 18948- 1608 Oct, [facility] [address] 18428- 3632 Sep, History of pneumonia Z87.01 ; Hypokalemia E87.6 ; Hypertension I10 and Encounter for immunization Z23 [facility] [id number] [place] [address] 46506- 0944 Jul, [facility] [address] 81702- 2845 Apr, Hypertension I10 ; Hypercholesteremia E78.0 ; Obesity, unspecified E66.9 ; Anxiety F41.9 and Lumbago M54.5 [facility] [id number] [place] [address] 62976- 3246 Apr, Depression F32.9 [facility] [id number] [place] [address] 17377- 8459 Mar, Essential (primary) hypertension I10 [address] [id number] [place] [address] Jan [facility] [id number] [place] [address] 09499- 6598 Dec, [facility] [id number] [place] [address] 84660- 5548 Dec, Generalized anxiety disorder F41.1 and Hypertension I10 [facility] [id number] [place] [address] 02496- 8263 Dec, [facility] [id number] [place] [address] 41999- 9861 Dec, Abdominal pain R10.9 [facility] [id number] [place] [address] 36157- 7422 Dec, Left sided abdominal pain of unknown cause R10.30 [facility] [id number] [place] [address] 03539- 2012 Nov, Generalized anxiety disorder 300.02 [facility] [id number] [place] [address] 93681- 8268 Nov, Female hirsutism L68.0 ; Hypertension I10 ; Hyperlipidemia E78.5 ; Depression F32.9 and Anxiety F41.9 [facility] [id number] [place] [address] 53284- 5292 Oct, [facility] [id number] [place] [address] 66337- 4640 Oct, [facility] [address] [address] 8409 Oct, [facility] [id number] [place] [address] 87064- 6522 Oct, [facility] [id number] [place] [address] 76180- 7313 Oct, Well woman exam Z01.419 ; Encounter [...] unspecified obesity severity, unspecified obesity type E66.9 [facility] [id number] [place] [address] 29737- 2236 Jun, Generalized anxiety disorder 300.02 [facility] [id number] [place] [address] 42707- 1326 Jun, Chest pain 786.50 ; Hypertension 401.9 ; Hyperlipemia 272.4 and Obesity 278.00 [facility] [id number] [place] [address] 01308- 2139 Apr, Generalized anxiety disorder 300.02 [facility] [id number] [place] [address] 66435- 6645 Apr, Generalized anxiety disorder 300.02 [facility] [id number] [place] [address] 62248- 7138 Apr, [facility] [id number] [place] [address] 80392- 9685 Apr, [facility] [id number] [place] [address] 47283- 1196 Apr, Abdominal pain 789.00 ; Dehydration 276.51 ; Generalized anxiety disorder 300.02 ; Other and unspecified bipolar disorders 296.89 ; Obesity, unspecified 278.00 ; Family history of hypercholesterolemia V18.19 ; Diarrhea 787.91 ; Sleep apnea in adult 327.23 and Essential hypertension 401.9 [facility] [id number] [place] [address] 59137- 7757 Mar, Generalized anxiety disorder 300.02 [facility] [id number] [place] [address] 12133- 3602 February, [facility] [id number] [place] [address] 02239- 6351 Jan, [facility] [id number] [place] [address] 18430- 5684 Jan, [facility] [id number] [place] [address] 38618- 1360 Oct, [facility] [id number] [place] [address] 34691- 0340 Oct, [facility] [id number] [place] [address] 63092- 9577 Oct, [facility] [id number] [place] [address] 21427- 8892 Oct, [facility] [id number] [place] [address] 12155- 4438 Sep, [facility] [id number] [place] [address] 08468- 9307 Sep, [facility] [id number] [place] [address] 04005- 9656 Sep, [facility] [id number] [place] [address] 220901- 4876 Sep, [facility] [id number] [place] [address] 680319- 3372 Sep, [facility] [id number] [place] [address] 52340- 4351 Sep, [facility] [place] [facility] [address] [id number] [place] [address]- 7576 Sep, [facility] [place] [facility] [address] [id number] [place] [address]- 8289 Aug, [facility] [place] [facility] [address] [id number] [place] [address]- 7990 Aug, [facility] [place] [facility] [address] [id number] [place] [address]- 0554 Aug, [facility] [place] [facility] [address] [id number] [place] [address]- 3352 Aug, [facility] [place] [facility] [address] [id number] [place] [address]- 5316 Jul, [facility] [place] [facility] [address] [id number] [place] 1200 Jul, [facility] [place] [facility] [address] [id number] [place] [address]- 9746 Jul, [facility] [place] [facility] [address] [id number] [place] [address]- 2498 Jul, [facility] [place] [facility] [address] [id number] [place] [address]- 8069 Jul, [facility] [place] [facility] [address] [id number] [place] [address]- 3844 Jul, [facility] [place] [facility] [address] [id number] [place] [address]- 4330 Jul, [facility] [place] [facility] [address] [id number] [place] [address]- 0670 Jul, [facility] [place] [facility] [address] [id number] [place] [address]- 2866 16 Jun, 2014 [facility] [place] [facility] [address] [id number] [place] [address]- 9086 16 Jun, 2014 [facility] [place] [facility] [address] [id number] [place] [address]- 3265 15 Sep, 2013 [facility] [place] [facility] [address] [id number] [place] [address]- 9200 15 Sep, 2013 [facility] [place] [facility] [address] [id number] [place] [address]- 4546 09 Sep, 2013 [facility] [place] [facility] [address] [id number] [place] [address]- 8619 09 Sep, 2013 [facility] [place] [facility] [address] [id number] [place] [address]- 2075 04 Sep, 2013 [facility] [place] [facility] [address] [id number] [place] [address]- 6774 04 Sep, 2013 [facility] [place] [facility] [address] [id number] [place] [address]- 5738 02 Jun, 2013 [facility] [place] [facility] [address] [id number] [place] [address]- 5963 Jun, 2013 [facility] [place] [facility] [address] [id number] [place] [address]- 6130 02 Jun, 2013 [facility] [place] [facility] [address] [id number] [place] [address]- 0883 02 Jun, 2013 [facility] [place] [facility] [address] [id number] [place] [address]- 9468 Jun, 2013 [facility] [place] [facility] [address] [id number] [address]- 7931 Jun, 2013 [facility] [place] [facility] [address] [id number], [place] [address]- 0372 Jun, 2013 [facility] [place] [facility] [address] [id number] [place] [address]- 5207 Jun, 2013 [facility] [place] [facility] [address] [id number] [place] [address]- 7417 May, [facility] [place] [facility] [address] [id number] [place] [address]- 4962 May, [facility] [place] [facility] [address] [id number] [place] [address]- 9292 31 Apr, 2013 [facility] [place] [facility] [address] [id number] [place] [address]- 8475 Apr, 2013 [facility] [place] [facility] [address] [id number] [place] [address]- 2733 Apr, 2013 [facility] [place] [facility] [address] [id number] [place] [address]- 6297 Apr, 2013 [facility] [place] [facility] [address] [id number] [place] [address]- 2647 17 Apr, 2013 [facility] [place] [facility] [address] [id number] [place] [address]- 1147 17 Apr, 2013 [facility] [place] [facility] [address] [id number] [place] [address]- 9000 16 Apr, 2013 [facility] [place] [facility] [address] [id number] [place] [address]- 2299 16 Apr, 2013 [facility] [place] [facility] [address] [id number] [place] [address]- 7441 16 Apr, 2013 [facility] [place] [facility] [address] [id number] [place] [address]- 5132 Apr, 2013 [facility] [place] [facility] [address] [id number] [place] [address]- 9846 14 Apr, 2013 [facility] [place] [facility] [address] [id number] [place] [address]- 3028 14 Apr, 2013 [facility] [place] [facility] [address] [id number] [place] [address]- 4490 Apr, 2013 [facility] [place] [facility] [address] [id number] [place] [address]- 0475 Apr, 2013 [facility] [place] [facility] [address] [id number] [place] [address]- 1115 Apr, 2013 [facility] [place] [facility] [address] [id number] [place] [address]- 3713 07 Apr, 2014 [facility] [place] [facility] [address] [id number] [place] [address]- 5500 Apr, [facility] [place] [facility] [address] [id number] [place] [address]- 1239 Apr, [facility] [place] [facility] [address] [id number] [place] [address]- 6119 Apr, [facility] [place] [facility] [address] [id number] [place] [address]- 9248 Apr, [facility] [place] [facility] [address] [id number] [place] [address]- 2030 Mar, [facility] [place] [facility] [address] [id number] [place] [address]- 3740 Mar, [facility] [place] [facility] [address] [id number] [place] [address]- 0237 February, [facility] [place] [facility] [address] [id number] [place] [address]- 6982 February, [facility] [place] [facility] [address] [id number] [place] [address]- 9301 Jan, [facility] [place] [facility] [address] [id number] [place] [address]- 8079 Jan, [facility] [place] [facility] [address] [id number] [place] [address]- 7362 Jan, [facility] [place] [facility] [address] [id number] [place] [address]- 8495 Jan, [facility] [place] [facility] [address] [id number] [place] [address]- 9565 Dec, [facility] [place] [facility] [address] [id number] [place] [address]- 3109 Dec, [facility] [place] [facility] [address] [id number] [place] [address]- 4373 Oct, [facility] [place] [facility] [address] [id number] [place] [address]- 0426 Oct, [facility] [place] [facility] [address] [id number] [place] [address]- 5025 Oct, [facility] [place] [facility] [address] [id number] [place] [address]- 1821 Oct, [facility] [place] [facility] [address] [id number] [place] [address]- 6415 Aug, [facility] [place] [facility] [address] [id number] [place] [address]- 1762 Aug, [facility] [place] [facility] [address] [id number] [place] [address]- 3983 Aug, [facility] [place] [facility] [address] [id number] [place] 8637 Aug, [facility] [place] [facility] [address] [id number] [place] [address]- 9601 Jul, [facility] [place] [facility] [address] [id number] [place] [address]- 7349 Jul, [facility] [place] [facility] [address] [id number] [place] [address]- 3496 Jul, [facility] [place] [facility] [address] [id number] [place] [address]- 5754 Jun, [facility] [place] [facility] [address] [id number] [place] [address]- 4328 May, [facility] [place] [facility] [address] [id number] [place] [address]- 5274 Apr, [facility] [place] [facility] [address] [id number] [place] [address]- 4285 Apr, [facility] [place] [facility] [address] [id number] [place] [address]- 6099 Apr, [facility] [place] [facility] [address] [id number] [place] [address]- 1158 Apr, [facility] [place] [facility] [address] [id number] [place] [address]- 2519 Mar, [facility] [address] [id number] [place] [address]- 8433 Mar, [facility] [address] [id number] [place] [address]- 8123 Mar, [facility] [address] [id number] [place] [address]- 9709 Mar, [facility] [address] [id number] [place] [address]- 2964 February, [facility] [address] [id number] [place] [address]- 1615 February, [facility] [address] [id number] [place] [address]- 6353 February, [facility] [address] [id number] [place] [address]- 0278 February, [facility] [address] [id number] [place] [address]- 0116 February, [facility] [address] [id number] [place] [address]- 0717 Jan, [facility] [address] [id number] [place] [address]- 9957 Dec, [facility] [address] [id number] [place] [address]- 9522 Nov, [facility] [address] [id number] [place] [address]- 7611 Nov, [facility] [address] [id number] [place] [address]- 1845 Nov, [facility] [address] [id number] [place] [address]- 9966 Oct, [facility] [address] [id number] [place] [address]- 4227 Oct, [facility] [address] [id number] [place] [address]- 5136 Oct, [facility] [place] [facility] [address] [id number] [place] [address]- 49[address] Oct, [facility] [place] [facility] [address] [id number] [place] [address] Oct, [facility] [place] [facility] [address] [id number] [place] [address] Oct, [facility] [place] [facility] [address] [id number] [place] [address] Sep, [facility] [place] [facility] [address] [id number] [place] [address] Sep, [facility] [place] [facility] [address] [id number] [place] [address] Sep, [facility] [place] [facility] [address] [id number] [place] [address] Sep, [facility] [place] [facility] [address] [id number] [place] [address] Aug, [facility] [place] [facility] [address] [id number] [place] [address] Aug, [facility] [place] [facility] [address] [id number] [address] Aug, [facility] [place] [facility] [address] [id number], [place] [address] Aug, [facility] [place] [facility] [address] [id number] [place] [address] Aug, [facility] [place] [facility] [address] [id number] [place] [address] Aug, [facility] [place] [facility] [address] [id number] [place] [address] Jul, [facility] [place] [facility] [address] [id number] [place] [address] Jul, [facility] [place] [facility] [address] [id number] [place] [address] Jul, [facility] [place] [facility] [address] [id number] [place] [address] Jul, [facility] [place] [facility] [address] [id number] [place] [address] Jul, [facility] [place] [facility] [address] [id number] [place] [address] Jul, [facility] [place] [facility] [address] [id number] [place] [address] Jul, [facility] [place] [facility] [address] [id number] [place] [address] Jul, [facility] [place] [facility] [address] [id number] [place] [address] Jul, [facility] [place] [facility] [address] [id number] [place] [address] Jul, [facility] [place] [facility] [address] [id number] [place] [address] 26 Jun, 2012 [facility] [place] [facility] [address] [id number] [place] [address] 14 Jun, 2012 [facility] [place] [facility] [address] [id number] [place] [address] 12 Jun, 2012 [facility] [place] [facility] [address] [id number] [place] [address] May, [facility] [place] [facility] [address] [id number] [place] [address] 16 May, 2012 [facility] [place] [facility] [address] [id number] [place] [address] May, [facility] [place] [facility] [address] [id number] [place] [address] May, [facility] [place] [facility] [address] [id number] [place] [address] Apr, [facility] [place] [facility] [address] [id number] [place] [address] 30 Apr, 2012 [facility] [place] [facility] [address] [id number] [place] [address] Apr, [facility] [place] [facility] [address] [id number] [place] [address] Apr, [facility] [place] [facility] [address] [id number] [place] [address] Mar, [facility] [place] [facility] [address] [id number] [place] [address] Mar, [facility] [place] [facility] [address] [id number] [place] [address] Mar, [facility] [place] [facility] [address] [id number] [place] [address] February, [facility] [place] [facility] [address] [id number] [place] [address] February, [facility] [place] [facility] [address] [id number] [place] [address] Jan, [facility] [place] [facility] [address] [id number] [place] [address] Jan, [facility] [place] [facility] [address] [id number] [place] [address] Jan, [facility] [place] [facility] [address] [id number] [place] [address] 29 Dec, 2011 [facility] [place] [facility] [address] [id number] [place] [address] 14 Dec, 2011 [facility] [place] [facility] [address] [id number] [place] [address] 14 Dec, 2011 [facility] [place] [facility] [address] [id number] [place] [address] Dec, [facility] [address] [id number] [place] [address] Nov, [facility] [address] [id number] [place] [address] Nov, [facility] [address] [id number] [place] [id number] Nov, [facility] [address] [id number] [place] [address] 16 Nov, 2011 [facility] [address] [id number] [place] [address] Nov, [facility] [address] [id number] [place] [address] 06 Nov, 2011 [facility] [address] [facility] [id number] [place] [address] Nov, [facility] [address] [id number] [place] [address] Oct, [facility] [address] [id number] [place] [address] Oct, [facility] [address] [facility] [id number] [place] [address] Oct, [facility] [address] [id number] [place] [address] Oct, [facility] [place] [facility] [address] [id number] [place] [address] Oct, [facility] [place] [facility] [address] [id number] [place] [address] Oct, [facility] [place] [facility] [address] [facility] [id number] [place] [address] Oct, [facility] [place] [facility] [address] [facility] [id number] [place] [address] Oct, [facility] [place] [facility] [address] [id number] [place] [address] Sep, [facility] [place] [facility] [address] [id number] [place] Sep, [facility] [place] [facility] [address] [id number] [place] [address] Sep, [facility] [place] [facility] [address] [id number] [place] [address] Sep, [facility] [place] [facility] [address] [id number] [place] Aug, [facility] [place] [facility] [address] [id number] [place] [address] Aug, [facility] [place] [facility] [address] [id number] [id number] [address] Aug, [facility] [place] [facility] [address] [id number] [place] [address] Jul, [facility] [place] [facility] [address] [id number] [place] [address] Jul, [facility] [place] [facility] [address] [id number] [place] [address] Jul, [facility] [place] [facility] [address] [id number] [place] [address] Oct, [facility] [place] [facility] [address] [id number] [place] [address] Aug, [facility] [place] [facility] [address] [id number] [place] [address] 16 Aug, 2010 [facility] [place] [facility] [address] [id number] [place] [address] Sep, [facility] [place] [facility] [address] [id number] [place] [address] Sep, [facility] [place] [facility] [address] [id number] [place] [address] Sep, [facility] [address] [facility] [id number] [place] [address] Jan, IMMUNIZATIONS No Known Immunizations SOCIAL HISTORY Never Assessed REASON FOR VISIT f/u PLAN OF CARE Activity Details Follow Up 2 Months Reason: VITAL SIGNS MEDICATIONS Unknown Medications RESULTS No Results PROCEDURES Procedure Date Ordered Result Body Site Psychotherapy, patient &/family, 45 minutes, established patient Aug 13, 2017 INSTRUCTIONS MEDICATIONS ADMINISTERED No Known Medications [...]
--- OUTSIDE RECORDS SUMMARY | 2018-08-05 08:00 | XMS REPORT ---
Author Author ALCIDES RAMESH Organization [facility] Address [address] [place] [address] Care Team Providers Care Lifestyle Block Farmer Name Role Phone DOMITILA ALCIDES Unavailable PROBLEMS Type Condition ICD9-CM Code [id number] Code Onset Dates Condition Status SNOMED Code Problem Generalized anxiety disorder F41.1 Active 807421111 Problem Family history of hypercholesterolemia Z83.49 Active 483585702 Problem Obesity, unspecified E66.9 Active 582634326 Problem Rectal bleeding K62.5 Active 00706838 Problem Body mass index (BMI) of 40.0-44.9 in adult Z68.41 Active 566856697 Problem Left sided abdominal pain of unknown cause R10.30 Active 249745692 Problem Hypercholesteremia E78.0 Active 90877029 Problem Morbid (severe) obesity due to excess calories E66.01 Active 034221174 Problem Chronic fatigue R53.82 Active 45610992 Problem Hyperlipidemia E78.5 Active 97355578 Problem Sleep apnea in adult G47.33 Active 44318167 Problem Seborrheic keratoses L82.1 Active 255020485 Problem Lumbago M54.5 Active 605801327 Problem Female hirsutism L68.0 Active 45178387 Problem Hypertension I10 Active 95709839 ALLERGIES No Information ENCOUNTERS Encounter Location Date Diagnosis [facility] [address] [facility] [id number] [address] February, [facility] [id number] [place] [address]8745- 9930 February, Rectal bleeding K62.5 and BMI 40.0-44.9, adult Z68.41 [facility] [address] [id number] [address] Jan, 2018 BMI 40.0-44.9, adult Z68.41 and Skin irritation R23.8 [facility] [id number] [place] [address] 80460- 6259 Jan, Generalized anxiety disorder F41.1 [facility] [address] [address]- [address] Dec, [facility] [address] 75776- 3976 Nov, Body mass index (BMI) of 40.0-44.9 in adult Z68.41 ; Hypertension I10 and Seasonal allergic rhinitis, unspecified trigger J30.2 [facility] [address] [address]- 7231 Nov, Hypertension I10 [facility] [address] [address]- 6174 Nov, Generalized anxiety disorder 300.02 [facility] [address] 85391- 9845 Nov, [facility] [address] 15533- 6508 Oct, [facility] [address] 20568- 3460 Oct, [facility] [id number] [place] [address] 36763- 4898 Oct, Acute chest wall pain R07.89 [facility] [address] 08118- 3454 Oct, [facility] [id number] [place] [address] 26032- 9520 Sep, Left breast mass N63.20 [facility] [id number] [place] [address] 71124- 0244 Sep, Left breast mass N63.20 [facility] [address] 56070- 0388 Aug, Hypertension I10 [facility] [id number] [place] [address] 00962- 0534 Aug, Generalized anxiety disorder 300.02 [facility] [id number] [place] [address] 82907- 4238 Jul, Generalized anxiety disorder 300.02 [facility] [id number] [place] [address] 14086- 7055 Jul, Sleep apnea in adult G47.33 [facility] [address] 67848- 1372 Jul, Hypertension I10 ; Sleep apnea in adult G47.33 ; Body mass index (BMI) of 40.0-44.9 in adult Z68.41 ; Morbid (severe) obesity due to excess calories E66.01 and Female hirsutism L68.0 [facility] [address] 39311- 0961 Jul, Generalized anxiety disorder 300.02 [facility] [address] 04049- 6113 Jul, Generalized anxiety disorder 300.02 [facility] [id number] [place] [address] 81556 -0505 Jun, Chronic fatigue R53.82 [facility] [id number] [place] [address] 85601- 2454 Jun, Generalized anxiety disorder F41.1 [facility] [id number] [place] [address] 78902- 2220 May, Generalized anxiety disorder 300.02 [facility] [address] 83194- 6514 Apr, Generalized anxiety disorder F41.1 ; Hypertension I10 ; Hyperlipidemia E78.5 ; Female hirsutism L68.0 and Sleep apnea in adult G47.33 [facility] [id number] [place] [address] 89917- 4345 Mar, Hypertension I10 and Generalized anxiety disorder F41.1 [facility] [id number] [place] [address] 46247- 6901 Mar, [facility] [address] 35313- 3931 February, Hypertension I10 and Generalized anxiety disorder F41.1 [facility] [address] 97404- 3868 February, Generalized anxiety disorder 300.02 [facility] [address] 14[address] -9109 February, Pelvic pain R10.2 and Painful bladder spasm R30.1 [facility] [address] 39203- 0245 Jan, Generalized anxiety disorder 300.02 [place] [address] 60889- 4270 Dec, Obesity, unspecified E66.9 ; Generalized anxiety disorder F41.1 and Hypertension I10 [place] [address] 79078- 4802 Nov, Generalized anxiety disorder F41.1 ; Hypertension I10 ; Depression F32.9 and Obesity, unspecified E66.9 [place] [id number] [place] [address] 68167- 0443 Nov, Generalized anxiety disorder 300.02 [facility] [address] 47896- 4865 Oct, [facility] [address] 74585- 7684 Sep, History of pneumonia Z87.01 ; Hypokalemia E87.6 ; Hypertension I10 and Encounter for immunization Z23 [facility] [address] 62562- 2140 Jul, [place] [address] [place] [address] 0842 Apr, Hypertension I10 ; Hypercholesteremia E78.0 ; Obesity, unspecified E66.9 ; Anxiety F41.9 and Lumbago M54.5 [facility] [id number] [place] [address] 48169- 4757 Apr, Depression F32.9 [place] [id number] [place] [address] 85167- 6517 Mar, Essential (primary) hypertension I10 [address] [id number] [place] [address] Jan [place] [address] 44680- 5004 Dec, [place] [id number] [place] [address] 21328- 5149 Dec, Generalized anxiety disorder F41.1 and Hypertension I10 [place] [id number] [place] [address] 81640- 8621 Dec, [place] [id number] [place] [address] 83730- 2039 Dec, Abdominal pain R10.9 [place] [id number] [place] [address] 68206- 2054 Dec, Left sided abdominal pain of unknown cause R10.30 [place] [id number] [place] [address] 77692- 2117 Nov, Generalized anxiety disorder 300.02 [facility] [id number] [place] [address] 44175- 0151 Nov, Female hirsutism L68.0 ; Hypertension I10 ; Hyperlipidemia E78.5 ; Depression F32.9 and Anxiety F41.9 [facility] [id number] [place] [address] 24608- 2867 Oct, [facility] [id number] [place] [address] 16025- 4273 Oct, [facility] [address] [address]- 4475 Oct, [facility] [id number] [place] [address] 40817- 8977 Oct, [facility] [address] [place] [address] 39421- 4201 Oct, Well woman exam Z01.419 ; Encounter [...] unspecified obesity severity, unspecified obesity type E66.9 [place] [id number] [place] [address] 35682- 8424 Jun, Generalized anxiety disorder 300.02 [place] [id number] [place] [address] 78680- 5142 Jun, Chest pain 786.50 ; Hypertension 401.9 ; Hyperlipemia 272.4 and Obesity 278.00 [place] [address] [address]- 1571 Apr, Generalized anxiety disorder 300.02 [facility] [id number] [place] [address] 86517- 1567 Apr, Generalized anxiety disorder 300.02 [facility] [address] [address]- 7443 Apr, [facility] [id number] [place] [address] 65982- 3689 Apr, [facility] [address] [address]- 0411 Apr, Abdominal pain 789.00 ; Dehydration 276.51 ; Generalized anxiety disorder 300.02 ; Other and unspecified bipolar disorders 296.89 ; Obesity, unspecified 278.00 ; Family history of hypercholesterolemia V18.19 ; Diarrhea 787.91 ; Sleep apnea in adult 327.23 and Essential hypertension 401.9 [facility] [address] [address]- 3492 Mar, Generalized anxiety disorder 300.02 [facility] [address] [address]- 5113 February, [facility] [id number] [place] [address] 63298- 4468 Jan, [facility] [id number] [place] [address] 21438- 0460 Jan, [facility] [id number] [place] [address] 83311731- 8721 Oct, [facility] [id number] [place] [address] 429589- 0557 Oct, [facility] [address] [address]- 1935 Oct, [facility] [id number] [place] [address] 57611- 6758 Oct, [facility] [address] [address]- 9480 Sep, [facility] [address] 6161 Sep, [facility] [address] 0716 Sep, [facility] [address] [address]- 1396 Sep, [facility] [address] [address]- 1036 Sep, [facility] [address] [address]- 0676 Sep, [facility] [place] [facility] [address] [id number] [place] [address]- 3939 Sep, [facility] [place] [facility] [address] [id number] [place] [address]- 4034 Aug, [facility] [place] [facility] [address] [id number] [place] [address]- 6314 Aug, [facility] [place] [facility] [address] [id number] [place] [address]- 3995 Aug, [facility] [place] [facility] [address] [id number] [place] [address]- 4642 Aug, [facility] [place] [facility] [address] [id number] [place] [address]- 3641 Jul, [facility] [place] [facility] [address] [id number] [place] [address]- 8671 Jul, [facility] [place] [facility] [address] [id number] [place] [address]- 4966 Jul, [facility] [place] [facility] [address] [id number] [place] [address]- 6359 Jul, [facility] [place] [facility] [address] [id number] [place] [address]- 3027 Jul, [facility] [place] [facility] [address] [id number] [place] [address]- 1435 Jul, [facility] [place] [facility] [address] [id number] [place] [address]- 5966 Jul, [facility] [place] [facility] [address] [id number] [place] [address]- 7792 Jul, [facility] [place] [facility] [address] [id number] [place] [address]- 2865 Jun, [facility] [place] [facility] [address] [id number] [place] [address]- 7333 16 Jun, 2014 [facility] [place] [facility] [address] [id number] [place] [address]- 0072 15 Sep, 2013 [facility] [place] [facility] [address] [id number] [place] [address]- 0227 15 Sep, 2013 [facility] [place] [facility] [address] [id number] [place] [address]- 4865 09 Sep, 2013 [facility] [place] [facility] [address] [id number] [place] [address]- 9483 09 Sep, 2013 [facility] [place] [facility] [address] [id number] [place] [address]- 3895 04 Sep, 2013 [facility] [place] [facility] [address] [id number] [place] [address]- 9731 04 Sep, 2013 [facility] [place] [facility] [address] [id number] [place] [address]- 9399 Jun, 2013 [facility] [place] [facility] [address] [id number] [place] [address]- 6083 Jun, 2013 [facility] [place] [facility] [address] [id number] [place] [address]- 9248 Jun, 2013 [facility] [place] [facility] [address] [id number] [place] [address]- 8927 Jun, 2013 [facility] [place] [facility] [address] [id number] [place] [address]- 5090 Jun, 2013 [facility] [place] [facility] [address] [id number] [place] [address]- 1103 Jun, 2013 [facility] [place] [facility] [address] [id number] [place] [address]- 0609 Jun, 2013 [facility] [place] [facility] [address] [id number] [place] [address]- 3826 Jun, 2013 [facility] [place] [facility] [address] [id number] [place] [address]- 3413 May, [facility] [place] [facility] [address] [id number] [place] [address]- 7774 May, [facility] [place] [facility] [address] [id number] [place] [address]- 3596 31 Apr, 2013 [facility] [place] [facility] [address] [id number] [place] [address]- 1963 Apr, 2013 [facility] [place] [facility] [address] [id number] [place] [address]- 4595 Apr, 2013 [facility] [place] [facility] [address] [id number] [place] [address]- 1863 Apr, 2013 [facility] [place] [facility] [address] [id number] [place] [address]- 3753 Apr, 2013 [facility] [place] [facility] [address] [id number] [place] [address]- 3351 Apr, 2013 [facility] [place] [facility] [address] [id number] [place] [address]- 7762 16 Apr, 2013 [facility] [place] [facility] [address] [id number] [place] [address]- 2015 Apr, 2013 [facility] [place] [facility] [address] [id number] [place] [address]- 9434 16 Apr, 2013 [facility] [place] [facility] [address] [id number] [place] [address]- 6762 Apr, 2013 [facility] [place] [facility] [address] [id number] [place] [address]- 7602 14 Apr, 2013 [facility] [place] [facility] [address] [id number] [place] [address]- 9412 14 Apr, 2013 [facility] [place] [facility] [address] [id number] [place] [address]- 0750 Apr, 2013 [facility] [place] [facility] [address] [id number] [place] [address]- 4831 Apr, 2013 [facility] [place] [facility] [address] [id number] [place] [address]- 7603 Apr, 2013 [facility] [place] [facility] [address] [id number] [place] [address]- 1840 Apr, [facility] [place] [facility] [address] [id number] [place] [address]- 3635 Apr, [facility] [place] [facility] [address] [id number] [place] [address]- 4670 Apr, [facility] [place] [facility] [address] [id number] [place] 8407 Apr, [facility] [place] [facility] [address] [id number] [place] [address]- 7877 Apr, [facility] [place] [facility] [address] [id number] [place] [address]- 8368 Mar, [facility] [place] [facility] [address] [id number] [place] [address]- 1631 Mar, [facility] [place] [facility] [address] [id number] [place] [address]- 2835 February, [facility] [place] [facility] [address] [id number] [place] [address]- 7763 February, [facility] [place] [facility] [address] [id number] [place] [address]- 9506 Jan, [facility] [place] [facility] [address] [id number] [place] [address]- 9404 Jan, [facility] [place] [facility] [address] [id number] [place] [address]- 9210 Jan, [facility] [place] [facility] [address] [id number] [place] [address]- 2040 Jan, [facility] [place] [facility] [address] [id number] [place] [address]- 0232 Dec, [facility] [place] [facility] [address] [id number] [place] [address]- 1533 Dec, [facility] [place] [facility] [address] [id number] [place] 5430 Oct, [facility] [place] [facility] [address] [id number] [place] [address]- 7253 Oct, [facility] [place] [facility] [address] [id number] [place] [address]- 3552 Oct, [facility] [place] [facility] [address] [id number] [place] [address]- 4922 Oct, [facility] [place] [facility] [address] [id number] [place] [address]- 8029 Aug, [facility] [place] [facility] [address] [id number] [place] [address]- 8380 Aug, [facility] [place] [facility] [address] [id number] [place] [address]- 1327 Aug, [facility] [place] [facility] [address] [id number] [place] [address]- 7107 Aug, [facility] [place] [facility] [address] [id number] [place] [address]- 7163 Jul, [facility] [place] [facility] [address] [id number] [place] [address]- 6713 Jul, [facility] [place] [facility] [address] [facility] [id number] [place] [address]- 5893 Jul, [facility] [place] [facility] [address] [facility] [id number] [place] [address]- 4381 Jun, [facility] [place] [facility] [address] [id number] [place] [address]- 8279 May, [facility] [place] [facility] [address] [id number] [address]- 1688 Apr, [facility] [place] [facility] [address] [id number] [place] [address]- 6616 Apr, [facility] [place] [facility] [address] [facility] [id number] [place] [address]- 0580 Apr, [facility] [place] [facility] [address] [facility] [id number] [place] [address]- 8999 Apr, [facility] [place] [facility] [address] [id number] [place] [address]- 4103 Mar, [facility] [address] [id number] [place]246 Mar, [facility] [place] [facility] [address] [id number] [place] [address]- 5691 Mar, [facility] [place] [facility] [address] [id number] [place] [address]- 0058 Mar, [facility] [place] [facility] [address] [id number] [place] [address]- 1712 February, [facility] [place] [facility] [address] [id number] [place] [address]- 5093 February, [facility] [place] [facility] [address] [id number] [place] [address]- 2878 February, [facility] [place] [facility] [address] [id number] [place] [address]- 7080 February, [facility] [address] [id number] [place] [address]- 7844 February, [facility] [place] [facility] [address] [id number] [place] [address]- 7595 Jan, [facility] [place] [facility] [address] [id number] [place] [address]- 6173 Dec, [facility] [place] [facility] [address] [id number] [place] [address]- 6752 Nov, [facility] [place] [facility] [address] [id number] [place] [address]- 1073 Nov, [facility] [place] [facility] [address] [id number] [place] [address]- 9227 Nov, [facility] [place] [facility] [address] [id number] [place] [address]- 1201 Oct, [facility] [place] [facility] [address] [id number] [address]- 9236 Oct, [facility] [place] [facility] [address] [id number] [place] [address]- 8220 Oct, [facility] [place] [facility] [address] [id number] [place] [address]- 2701 Oct, [facility] [place] [facility] [address] [facility] [id number] [place] [address]- 1555 Oct, [facility] [place] [facility] [address] [id number] [place] [address]- 8364 Oct, [facility] [place] [facility] [address] [id number] [place] 4418 Sep, [facility] [place] [facility] [address] [id number] [place] [address]- 4071 Sep, [facility] [place] [facility] [address] [id number] [place] [address]- 5725 Sep, [facility] [place] [facility] [address] [id number] [place] [address]- 0742 Sep, [facility] [place] [facility] [address] [id number] [place] [address]- 7914 Aug, [facility] [place] [facility] [address] [id number] [place] [address]- 6391 Aug, [facility] [place] [facility] [address] [id number] [address] Aug, [facility] [place] [facility] [address] [id number] [place] [address] Aug, [facility] [place] [facility] [address] [id number] [place] [address] Aug, [facility] [place] [facility] [address] [id number] [place] [address] Aug, [facility] [place] [facility] [address] [id number] [place] [address] Jul, [facility] [place] [facility] [address] [id number] [place] [address] Jul, [facility] [place] [facility] [address] [id number] [place] [address] Jul, [facility] [place] [facility] [address] [id number] [place] [address] Jul, [facility] [place] [facility] [address] [id number] [place] [address] Jul, [facility] [place] [facility] [address] [id number] [place] [address] Jul, [facility] [place] [facility] [address] [id number] [place] [address] Jul, [facility] [place] [facility] [address] [id number] [place] [address] Jul, [facility] [place] [facility] [address] [id number] [place] [address] Jul, [facility] [place] [facility] [address] [id number] [place] [address] Jul, [facility] [place] [facility] [address] [id number] [place] [address] 26 Jun, 2012 [facility] [place] [facility] [address] [id number] [place] [address] 14 Jun, 2012 [facility] [place] [facility] [address] [id number] [place] [address]- [address] 12 Jun, 2012 [facility] [place] [facility] [address] [id number] [place] [address] May, [facility] [place] [facility] [address] [id number] [place] [address] 16 May, 2012 [facility] [place] [facility] [address] [id number] [place] [address] May, [facility] [place] [facility] [address] [id number] [place] [address] May, [facility] [place] [facility] [address] [id number] [place] [address] Apr, [facility] [place] [facility] [address] [id number] [place] [address]- [address] Apr, [facility] [place] [facility] [address] [id number] [place] [address] Apr, [facility] [place] [facility] [address] [id number] [place] [address]- [address] Apr, [facility] [place] [facility] [address] [id number] [place] [address] Mar, [facility] [place] [facility] [address] [id number] [place] [address] Mar, [facility] [place] [facility] [address] [id number] [place] [address] Mar, [facility] [place] [facility] [address] [id number] [place] [address] February, [facility] [place] [facility] [address] [id number] [place] [address] February, [facility] [place] [facility] [address] [id number] [place] [address] Jan, [facility] [place] [facility] [address] [id number] [place] [address] Jan, [facility] [place] [facility] [address] [id number] [place] [address]- [address] Jan, [facility] [place] [facility] [address] [id number] [place] [address] Dec, [facility] [place] [facility] [address] [id number] [place] [address] Dec, [facility] [place] [facility] [address] [id number] [place] [address] Dec, [facility] [place] [facility] [address] [id number] [place] [address] Dec, [facility] [address] [id number] [place] [address] Nov, [facility] [address] [id number] [place] [address] Nov, [facility] [address] [id number] [place] [address] Nov, [facility] [place] [facility] [address] [id number] [place] [address]- [address] 16 Nov, 2011 [facility] [address] [id number] [place] [address]- [address] Nov, [facility] [address] [id number] [place] [address] 06 Nov, 2011 [facility] [address] [id number] [place] [address] Nov, [facility] [address] [id number] [place] [address] Oct, [facility] [address] [id number] [place] [address] Oct, [facility] [address] [facility] [id number] [place] [address] Oct, [facility] [address] [id number] [place] [address] Oct, [facility] [facility] [address] [id number] [place] [address] Oct, [facility] [place] [facility] [address] [id number] [place] [address] Oct, [facility] [place] [facility] [address] [id number] [place] [address] Oct, [facility] [place] [facility] [address] [id number] [place] [address] Oct, [facility] [place] [facility] [address] [id number] [place] [address] Sep, [facility] [place] [facility] [address] [id number] [place] [address] Sep, [facility] [place] [facility] [address] [id number] [place] [address] Sep, [facility] [place] [facility] [address] [id number] [place] [address] Sep, [facility] [place] [facility] [address] [id number] [place] [address] Aug, [facility] [place] [facility] [address] [id number] [place] [address] Aug, [facility] [place] [facility] [address] [id number] [place] [address] Aug, [facility] [place] [facility] [address] [id number] [place] [address] Jul, [facility] [place] [facility] [address] [id number] [place] [address] Jul, [facility] [place] [facility] [address] [id number] [place] [address] Jul, [facility] [place] [facility] [address] [id number] [place] [address] Oct, [facility] [place] [facility] [address] [id number] [place] [address] Aug, [facility] [place] [facility] [address] [id number] [place] [address] Aug, [facility] [place] [facility] [address] [id number] [place] [address] Sep, [facility] [place] [facility] [address] [id number] [place] [address] Sep, [facility] [place] [facility] [address] [id number] [place] [address] Sep, [facility] [address] [facility] [id number] [place] [address] Jan, IMMUNIZATIONS No Known Immunizations SOCIAL HISTORY Never Assessed REASON FOR VISIT Requests return call PLAN OF CARE VITAL SIGNS MEDICATIONS Unknown Medications RESULTS No Results PROCEDURES Procedure Date Ordered Result Body Site SLEEP STUDY (HOSPITAL) 2017-08-12 NO SHOW INSTRUCTIONS MEDICATIONS ADMINISTERED No Known Medications MEDICAL [...]
--- OUTSIDE RECORDS SUMMARY | 2018-08-05 08:02 | XMS REPORT ---
Author Author ALCIDES RAMESH [facility] Address [address] [place] [address] Care Team Providers Care Radiologist Physician Name Role Phone ALCIDES RAMESH Unavailable PROBLEMS Type Condition ICD9-CM Code OOG14-AK Code Onset Dates Condition Status SNOMED Code Problem Body mass index (BMI) of 40.0-44.9 in adult Z68.41 Active 628178585 Problem Chronic fatigue R53.82 Active 88156476 Problem Anal fissure K60.2 Active 55555641 Problem Rectal bleed K62.5 Active 48937138 Problem Hypertension I10 Active 32341819 Problem Sleep apnea in adult G47.33 Active 16667640 ALLERGIES No Information ENCOUNTERS Encounter Location Date Diagnosis [facility] [id number] [place] [address] 40787- 7771 May, [facility] [address] 62012- 7158 Apr, [facility] [id number] [place] [address] 05586- 9749 Apr, [facility] [id number] [place] [address] 48091- 7462 Apr, Generalized anxiety disorder F41.1 [facility] [id number] [place] [address] 20447- 8666 Mar, Generalized anxiety disorder 300.02 [facility] [address] 98841- 3614 Mar, [facility] [id number] [place] [address] 53825- 4029 Mar, Generalized anxiety disorder 300.02 [facility] [address] 68169- 4736 Mar, Acute serous otitis media of left ear, recurrence not specified H65.02 ; Dizziness R42 and BMI 40.0-44.9, adult Z68.41 [facility] [address] 48270- 2453 February, Hypertension I10 [place] [address] 84645- 9335 February, Visit for TB skin test Z11.1 ; Encounter for physical examination related to employment Z02.1 ; Hypertension I10 ; Generalized anxiety disorder F41.1 ; BMI 40.0-44.9, adult Z68.41 and Chronic fatigue R53.82 [place] [address] 37891- 4513 February, Rectal bleeding K62.5 and BMI 40.0-44.9, adult Z68.41 [place] [address] 78659- 7961 Jan, BMI 40.0-44.9, adult Z68.41 and Skin irritation R23.8 [place] [address] 05292- 6788 Jan, Generalized anxiety disorder F41.1 [place] [address] 03135- 4312 Dec, [facility] [facility] [address] 89565- 6686 Nov, Body mass index (BMI) of 40.0-44.9 in adult Z68.41 ; Hypertension I10 and Seasonal allergic rhinitis, unspecified trigger J30.2 [place] [address] 23704- 0679 Nov, Hypertension I10 [place] [address] 06144- 8186 Nov, Generalized anxiety disorder 300.02 [facility] [id number] [place] [address] 13731- 8854 Nov, [facility] [id number] [place] [address] 79151- 6253 Oct, [facility] [id number] [place] [address] 46504- 4154 Oct, [facility] [id number] [place] [address] 67915- 0863 Oct, Acute chest wall pain R07.89 [facility] [id number] [place] [address] 56191- 5525 Oct, [facility] [id number] [place] [address] 42377- 2804 Sep, Left breast mass N63.20 [facility] [id number] [place] [address] 70741- 1765 Sep, Left breast mass N63.20 [facility] [id number] [place] [address] 38129- 3179 Aug, Hypertension I10 [facility] [id number] [place] [address] 81470- 3028 Aug, Generalized anxiety disorder 300.02 [facility] [id number] [place] [address] 75110- 7066 Jul, Generalized anxiety disorder 300.02 [facility] [id number] [place] [address] 15054- 5694 Jul, Sleep apnea in adult G47.33 [facility] [id number] [place] [address] 29780- 6813 Jul, Hypertension I10 ; Sleep apnea in adult G47.33 ; Body mass index (BMI) of 40.0-44.9 in adult Z68.41 ; Morbid (severe) obesity due to excess calories E66.01 and Female hirsutism L68.0 [facility] [id number] [place] [address] 91496- 2436 Jul, Generalized anxiety disorder 300.02 [facility] [id number] [place] [address] 06786- 2978 Jul, Generalized anxiety disorder 300.02 [facility] [id number] [place] [address] 33433 -8162 Jun, Chronic fatigue R53.82 [facility] [address] 91873- 3122 Jun, Generalized anxiety disorder F41.1 [facility] [id number] [place] [address] 94721- 2396 May, Generalized anxiety disorder 300.02 [facility] [id number] [place] [address] 43833- 6083 Apr, Generalized anxiety disorder F41.1 ; Hypertension I10 ; Hyperlipidemia E78.5 ; Female hirsutism L68.0 and Sleep apnea in adult G47.33 [facility] [id number] [place] [address] 97827- 4072 Mar, Hypertension I10 and Generalized anxiety disorder F41.1 [facility] [id number] [place] [address] 97460- 8302 Mar, [facility] [id number] [place] [address] 13370- 9345 February, Hypertension I10 and Generalized anxiety disorder F41.1 [facility] [id number] [place] [address] 85330- 3279 February, Generalized anxiety disorder 300.02 [facility] [id number] [place] [address] 86051 -3151 February, Pelvic pain R10.2 and Painful bladder spasm R30.1 [facility] [id number] [place] [address] 37477- 3906 Jan, Generalized anxiety disorder 300.02 [facility] [id number] [place] [address] 72278- 7454 Dec, Obesity, unspecified E66.9 ; Generalized anxiety disorder F41.1 and Hypertension I10 [place] [id number] [place] [address] 25612- 2917 Nov, Generalized anxiety disorder F41.1 ; Hypertension I10 ; Depression F32.9 and Obesity, unspecified E66.9 [place] [facility] [id number] [place] [address] 24902- 1984 Nov, Generalized anxiety disorder 300.02 [place] [facility] [id number] [place] [address] 85063- 1906 Oct, [place] [facility] [id number] [place] [address] 41426- 8683 Sep, History of pneumonia Z87.01 ; Hypokalemia E87.6 ; Hypertension I10 and Encounter for immunization Z23 [facility] [id number] [place] [address] 78686- 4296 Jul, [facility] [facility] [id number] [place] [address] 33598- 7066 Apr, Hypertension I10 ; Hypercholesteremia E78.0 ; Obesity, unspecified E66.9 ; Anxiety F41.9 and Lumbago M54.5 [place] [id number] [place] [address] 01005- 8850 Apr, Depression F32.9 [place] [id number] [place] [address] 10031- 6585 Mar, Essential (primary) hypertension I10 [facility] [address] [id number] [address] Jan [place] [id number] [place] [address] 02018- 5479 Dec, [place] [address] [place] [address] 74728- 2964 Dec, Generalized anxiety disorder F41.1 and Hypertension I10 [place] [id number] [place] [address] 73721- 1803 Dec, [place] [address] 83602- 8896 Dec, Abdominal pain R10.9 [place] [address] 79955- 1992 Dec, Left sided abdominal pain of unknown cause R10.30 [place] [id number] [place] [address] 83510- 5800 Nov, Generalized anxiety disorder 300.02 [place] [address] 25329- 8791 Nov, Female hirsutism L68.0 ; Hypertension I10 ; Hyperlipidemia E78.5 ; Depression F32.9 and Anxiety F41.9 [place] [address] 47396- 5574 Oct, [place] [facility] [id number] [place] [address] 56424- 7902 Oct, [place] [id number] [place] [address] 05015- 1281 Oct, [place] [id number] [place] [address] 52478- 6713 Oct, [place] [id number] [place] [address] 33049- 5899 Oct, Well woman exam Z01.419 ; Encounter [...] unspecified obesity severity, unspecified obesity type E66.9 [place] [address] [place] [address]- 4199 Jun, Generalized anxiety disorder 300.02 [facility] [id number] [place] [address] 59979- 5128 Jun, Chest pain 786.50 ; Hypertension 401.9 ; Hyperlipemia 272.4 and Obesity 278.00 [facility] [id number] [place] [address] 29518- 7122 Apr, Generalized anxiety disorder 300.02 [facility] [id number] [place] [address] 48124- 7741 Apr, Generalized anxiety disorder 300.02 [facility] [address] 70886- 3021 Apr, [facility] [id number] [place] [address] 34078- 1699 Apr, [facility] [address] 06547- 3517 Apr, Abdominal pain 789.00 ; Dehydration 276.51 ; Generalized anxiety disorder 300.02 ; Other and unspecified bipolar disorders 296.89 ; Obesity, unspecified 278.00 ; Family history of hypercholesterolemia V18.19 ; Diarrhea 787.91 ; Sleep apnea in adult 327.23 and Essential hypertension 401.9 [facility] [id number] [place] [address] 64477- 6192 Mar, Generalized anxiety disorder 300.02 [facility] [id number] [place] [address] 19141- 0214 February, [facility] [id number] [place] [address] 69413- 5115 Jan, [facility] [address] 87695- 6322 Jan, [facility] [id number] [place] [address] 99049- 8582 Oct, [facility] [id number] [place] [address] 70095- 0704 Oct, [facility] [place] [facility] [address] [id number] [place] [address]- 9478 Oct, [facility] [place] [facility] [address] [id number] [place] [address]- 8873 Oct, [facility] [place] [facility] [address] [id number] [place] [address]- 0217 Sep, [facility] [place] [facility] [address] [id number] [place] [address]- 8020 Sep, [facility] [place] [facility] [address] [id number] [place] [address]- 8152 Sep, [facility] [place] [facility] [address] [id number] [place] [address]- 2542 Sep, [facility] [place] [facility] [address] [id number] [place] [address]- 9105 Sep, [facility] [place] [facility] [address] [id number] [place] [address]- 0576 Sep, [facility] [place] [facility] [address] [id number] [place] [address]- 5041 Sep, [facility] [place] [facility] [address] [id number] [place] [address]- 9524 Aug, [facility] [place] [facility] [address] [id number] [place] [address]- 4812 Aug, [facility] [place] [facility] [address] [id number] [place] [address]- 6326 Aug, [facility] [place] [facility] [address] [id number] [place] [address]- 3745 Aug, [facility] [place] [facility] [address] [id number] [place] [address]- 5741 Jul, [facility] [place] [facility] [address] [id number] [place] [address]- 2066 Jul, [facility] [place] [facility] [address] [id number] [place] [address]- 5409 30 Jul, 2013 [facility] [place] [facility] [address] [id number] [place] [address]- 4658 30 Jul, 2013 [facility] [place] [facility] [address] [id number] [place] [address]- 3177 14 Jul, 2014 [facility] [place] [facility] [address] [id number] [place] [address]- 5588 14 Jul, 2013 [facility] [place] [facility] [address] [id number] [place] [address]- 7937 02 Jul, 2014 [facility] [place] [facility] [address] [id number] [place] [address]- 1071 02 Jul, 2014 [facility] [place] [facility] [address] [id number] [place] [address]- 0964 16 Jun, 2013 [facility] [place] [facility] [address] [id number] [place] [address]- 4506 16 Jun, 2013 [facility] [place] [facility] [address] [id number] [place] [address]- 0796 15 Sep, 2013 [facility] [place] [facility] [address] [id number] [place] [address]- 5408 15 Jun, 2013 [facility] [place] [facility] [address] [id number] [place] [address]- 0140 09 Sep, 2013 [facility] [place] [facility] [address] [id number] [place] [address]- 2543 09 Sep, 2013 [facility] [place] [facility] [address] [id number] [place] [address]- 2540 04 Sep, 2013 [facility] [place] [facility] [address] [id number] [place] [address]- 2542 04 Sep, 2013 [facility] [place] [facility] [address] [id number] [place] [address]- 4383 02 Sep, 2013 [facility] [place] [facility] [address] [id number] [place] [address]- 5381 02 Sep, 2013 [facility] [place] [facility] [address] [id number] [place] [address]- 4321 Jun, 2013 [facility] [place] [facility] [address] [id number] [place] [address]- 6691 Jun, 2013 [facility] [place] [facility] [address] [id number] [place] [address]- 0100 Jun, 2013 [facility] [place] [facility] [address] [id number] [place] [address]- 0288 Jun, 2013 [facility] [place] [facility] [address] [id number] [place] [address]- 0640 Jun, 2013 [facility] [place] [facility] [address] [id number] [place] [address]- 5971 Jun, [facility] [place] [facility] [address] [id number] [place] [address]- 0661 May, [facility] [place] [facility] [address] [id number] [place] [address]- 0612 May, [facility] [place] [facility] [address] [id number] [place] [address]- 8949 Apr, [facility] [place] [facility] [address] [id number] [place] [address]- 1507 Apr, [facility] [place] [facility] [address] [id number] [place] [address]- 1543 Apr, [facility] [place] [facility] [address] [id number] [place] [address]- 8427 Apr, [facility] [place] [facility] [address] [id number] [place] [address]- 0354 Apr, [facility] [place] [facility] [address] [id number] [place] [address]- 3165 Apr, [facility] [place] [facility] [address] [id number] [place] [address]- 8569 Apr, [facility] [place] [facility] [address] [id number] [place] [address]- 7278 16 Apr, 2013 [facility] [place] [facility] [address] [id number] [place] [address]- 0783 16 Apr, 2013 [facility] [place] [facility] [address] [id number] [place] [address]- 2022 Apr, 2013 [facility] [place] [facility] [address] [id number] [place] [address]- 9826 Apr, 2013 [facility] [place] [facility] [address] [id number] [place] [address]- 8257 Apr, 2013 [facility] [place] [facility] [address] [id number] [place] [address]- 8779 Apr, 2013 [facility] [place] [facility] [address] [id number] [place] [address]- 7199 Apr, 2013 [facility] [place] [facility] [address] [id number] [place] [address]- 2814 Apr, 2013 [facility] [place] [facility] [address] [id number] [place] [address]- 9299 Apr, 2013 [facility] [place] [facility] [address] [id number] [place] [address]- 4880 Apr, 2013 [facility] [place] [facility] [address] [id number] [place] [address]- 3081 Apr, 2013 [facility] [place] [facility] [address] [id number] [place] [address]- 2357 Apr, [facility] [place] [facility] [address] [id number] [place] [address]- 7569 Apr, [facility] [place] [facility] [address] [id number] [place] [address]- 6211 Mar, [facility] [place] [facility] [address] [id number] [place] [address]- 5605 Mar, [facility] [place] [facility] [address] [id number] [place] [address]- 5047 February, [facility] [place] [facility] [address] [id number] [place] [address]- 0200 February, [facility] [place] [facility] [address] [id number] [place] [address]- 6185 Jan, [facility] [place] [facility] [address] [id number] [place] [address]- 8415 Jan, [facility] [place] [facility] [address] [id number] [place] [address]- 7840 Jan, [facility] [place] [facility] [address] [id number] [place] [address]- 1596 Jan, [facility] [place] [facility] [address] [id number] [place] [address]- 3910 Dec, [facility] [place] [facility] [address] [id number] [place] [address]- 3893 Dec, [facility] [place] [facility] [address] [id number] [place] [address]- 5927 Oct, [facility] [place] [facility] [address] [id number] [place] [address]- 7401 Oct, [facility] [place] [facility] [address] [id number] [place] [address]- 2308 Oct, [facility] [place] [facility] [address] [id number] [place] [address]- 7308 Oct, [facility] [place] [facility] [address] [id number] [place] [address]- 7553 Aug, [facility] [place] [facility] [address] [id number] [place] [address]- 6628 Aug, [facility] [place] [facility] [address] [id number] [place] [address]- 4481 Aug, [facility] [place] [facility] [address] [id number] [place] [address]- 8504 Aug, [facility] [place] [facility] [address] [id number] [place] [address]- 6030 Jul, [facility] [address] [id number] [place] [address]- 3525 Jul, [facility] [place] [facility] [address] [id number] [place] [address]- 2546 Jul, [facility] [place] [facility] [address] [id number] [place] [address]- 2546 Jun, [facility] [place] [facility] [address] [id number] [place] [address]- 2546 May, [facility] [place] [facility] [address] [id number] [place] [address]- 4815 Apr, [facility] [place] [facility] [address] [id number] [place] [address]- 8136 Apr, [facility] [place] [facility] [address] [id number] [place] [address]- 7438 Apr, [facility] [place] [facility] [address] [id number] [place] [address]- 8139 Apr, [facility] [place] [facility] [address] [id number] [place] [address]- 9199 Mar, [facility] [place] [facility] [address] [id number] [place] [address]- 3726 Mar, [facility] [place] [facility] [address] [id number] [address]- 2543 Mar, [facility] [place] [facility] [address] [id number] [address]- 2542 Mar, [facility] [place] [facility] [address] [id number] [place] [address]- 2546 February, [facility] [place] [facility] [address] [id number] [place] [address]- 8936 February, [facility] [place] [facility] [address] [id number] [place] [address]- 2546 February, [facility] [place] [facility] [address] [id number] [place] [address]- 2296 February, [facility] [address] [id number] [place] [address]- 8516 February, [facility] [address] [id number] [place] [address]- 0206 Jan, [facility] [address] [id number] [place] [address]- 8550 Dec, [facility] [address] [id number] [place] [address]- 1421 Nov, [facility] [address] [id number] [place] [address] Nov, [facility] [address] [id number] [place] [address] Nov, [facility] [address] [id number] [place] [address] Oct, [facility] [address] [id number] [place] [address] Oct, [facility] [address] [id number] [place] [address] Oct, [facility] [address] [id number] [place] [address] Oct, [facility] [address] [id number] [place] [address] Oct, [facility] [address] [id number] [place] [address] Oct, [facility] [address] [id number] [place] [address] Sep, [facility] [address] [id number] [place] [address] Sep, [facility] [address] [id number] [place] [address] Sep, [facility] [place] [facility] [address] [id number] [place] [address] Sep, [facility] [place] [facility] [address] [id number] [place] [address] Aug, [facility] [place] [facility] [address] [id number] [place] [address] Aug, [facility] [place] [facility] [address] [id number] [place] [address] Aug, [facility] [place] [facility] [address] [id number] [place] [address] Aug, [facility] [place] [facility] [address] [id number] [place] [address] Aug, [facility] [place] [facility] [address] [id number] [place] [address] Aug, [facility] [place] [facility] [address] [id number], [place] [address] Jul, [facility] [place] [facility] [address] [id number] [place] [address] Jul, [facility] [place] [facility] [address] [facility] [id number], [place] [address] Jul, [facility] [place] [facility] [address] [id number] [address] Jul, [facility] [place] [facility] [address] [id number], [place] [address] Jul, [facility] [place] [facility] [address] [id number], [place] [address] Jul, [facility] [place] [facility] [address] [facility] [id number], [place] [address] Jul, [facility] [place] [facility] [address] [facility] [id number], [place] [address] Jul, [facility] [place] [facility] [address] [id number], [place] [address] Jul, [facility] [place] [facility] [address] [id number] [place] [address] Jul, [facility] [place] [facility] [address] [id number] [place] [address] Jun, [facility] [place] [facility] [address] [id number] [place] [address] 14 Jun, 2012 [facility] [place] [facility] [address] [id number] [place] [address] Jun, [facility] [place] [facility] [address] [id number] [place] [address] May, [facility] [place] [facility] [address] [id number] [place] [address] May, [facility] [place] [facility] [address] [id number] [place] [address] May, [facility] [place] [facility] [address] [id number] [place] [address] May, [facility] [place] [facility] [address] [id number] [place] [address] Apr, [facility] [place] [facility] [address] [facility] [id number] [place] [address] Apr, [facility] [place] [facility] [address] [id number] [place] [address] Apr, [facility] [place] [facility] [address] [id number] [place] [address] Apr, [facility] [place] [facility] [address] [id number] [place] [address] Mar, [facility] [place] [facility] [address] [id number] [place] [address] Mar, [facility] [place] [facility] [address] [id number] [place] [address] Mar, [facility] [place] [facility] [address] [id number] [place] [address] February, [facility] [place] [facility] [address] [id number] [place] [id number] February, [facility] [place] [facility] [address] [id number] [place] [address] Jan, [facility] [place] [facility] [address] [id number] [place] [address] Jan, [facility] [place] [facility] [address] [id number] [place] [address] Jan, [facility] [place] [facility] [address] [id number] [place] [address] 29 Dec, 2011 [facility] [place] [facility] [address] [id number] [place] [address] Dec, [facility] [place] [facility] [address] [id number] [place] [address] Dec, [facility] [place] [facility] [address] [id number] [place] [address] Dec, [facility] [place] [facility] [address] [id number] [place] [address] Nov, [facility] [place] [facility] [address] [facility] [id number] [place] [address] Nov, [facility] [place] [facility] [address] [id number] [place] [address] Nov, [facility] [place] [facility] [address] [id number] [place] [address] 16 Nov, 2011 [facility] [place] [facility] [address] [id number] [place] [address] [address] 09 Nov, 2011 [facility] [place] [facility] [address] [id number] [place] [address] 06 Nov, 2011 [facility] [place] [facility] [address] [id number] [address] Nov, [facility] [address] [id number] [place] [address] Oct, [facility] [place] [facility] [address] [id number] [place] [address] Oct, [facility] [place] [facility] [address] [facility] [id number] [place] [address] Oct, [facility] [place] [facility] [address] [id number] [place] [address] Oct, [facility] [address] [id number] [place] [address] Oct, [facility] [place] [facility] [address] [id number] [place] [address] Oct, [facility] [address] [facility] [id number] [place] [address] Oct, [facility] [place] [facility] [address] [facility] [id number] [place] [address] Oct, [facility] [address] [facility] [id number] [place] [address] Sep, [facility] [place] [facility] [address] [facility] [id number] [place] [address] Sep, [facility] [place] [facility] [address] [facility] [id number] [place] [address] Sep, [facility] [place] [facility] [address] [id number] [place] [address] Sep, [facility] [place] [facility] [address] [id number] [place] [address] Aug, [facility] [place] [facility] [address] [facility] [id number] [place] [address] Aug, [facility] [place] [facility] [address] [facility] [id number] [place] [address] Aug, [facility] [place] [facility] [address] [facility] [id number] [address] 18 Jul, 2011 [facility] [address] [facility] [id number] [address] Jul, [facility] [address] [facility] [id number][place] [address] Jul, [facility] [address] [facility] [id number][place] [address] Oct, [facility] [address] [facility] [id number][place] [address] Aug, [facility] [address] [facility] [id number][place] [address] Aug, [facility] [id number] [address] Sep, [facility] [id number], [place] [address] Sep, [facility] [address] [id number], [place] [address] Sep, [facility] [address] [id number], [place] [address] Jan, IMMUNIZATIONS No Known Immunizations SOCIAL HISTORY Never Assessed REASON FOR VISIT Repository Medication PLAN OF CARE VITAL SIGNS MEDICATIONS Medication Instructions Dosage Frequency Start Date End Date Duration Status Nadolol 40 mg Orally Once a day 1 tablet 24h 90 days Active RESULTS No Results PROCEDURES No [...]
--- OUTSIDE RECORDS SUMMARY | 2018-08-05 08:02 | XMS REPORT ---
Author Author ALCIDES RAMESH [facility] Address [address] [place] [address] Care Team Providers Care Road Commissioner Name Role Phone ALCIDES RAMESH Unavailable PROBLEMS Type Condition ICD9-CM Code [id number] Code Onset Dates Condition Status SNOMED Code Problem Body mass index (BMI) of 40.0-44.9 in adult Z68.41 Active 594378440 Problem Chronic fatigue R53.82 Active 22579579 Problem Hypertension I10 Active 36896548 Problem Sleep apnea in adult G47.33 Active 73752460 ALLERGIES Substance Reaction Event Type Date Status Amoxicillin Unknown Drug Allergy Jul, Active ENCOUNTERS Encounter Location Date Diagnosis [facility] [id number] [place] [address] 06287- 5613 February, Visit for TB skin test Z11.1 ; Encounter for physical examination related to employment Z02.1 ; Hypertension I10 ; Generalized anxiety disorder F41.1 ; BMI 40.0-44.9, adult Z68.41 and Chronic fatigue R53.82 [facility] [id number] [place] [address] 99417- 9231 February, Rectal bleeding K62.5 and BMI 40.0-44.9, adult Z68.41 [facility] [id number] [place] [address] 84762- 5430 Jan, BMI 40.0-44.9, adult Z68.41 and Skin irritation R23.8 [facility] [id number] [place] [address] 52119- 9947 Jan, Generalized anxiety disorder F41.1 [facility] [id number] [place] [address] 25564- 4362 Dec, [facility] [id number] [place] [address] 64828- 3965 Nov, Body mass index (BMI) of 40.0-44.9 in adult Z68.41 ; Hypertension I10 and Seasonal allergic rhinitis, unspecified trigger J30.2 [facility] [id number] [place] [address] 72855- 6040 Nov, Hypertension I10 [facility] [address] 99220- 7672 Nov, Generalized anxiety disorder 300.02 [facility] [id number] [place] [address] 37052- 3948 Nov, [facility] [id number] [place] [address] 15267- 7210 Oct, [facility] [id number] [place] [address] 81639- 4467 Oct, [facility] [id number] [place] [address] 94251- 0908 Oct, Acute chest wall pain R07.89 [facility] [address] 38045- 1890 Oct, [facility] [id number] [place] [address] 15475- 6015 Sep, Left breast mass N63.20 [facility] [id number] [place] [address] 60384- 2093 Sep, Left breast mass N63.20 [facility] [id number] [place] [address] 24826- 5793 Aug, Hypertension I10 [facility] [id number] [place] [address] 93126- 4615 07 Aug, 2017 Generalized anxiety disorder 300.02 [facility] [id number] [place] [address] 37924- 1385 Jul, Generalized anxiety disorder 300.02 [facility] [id number] [place] [address] 11891- 9652 Jul, Sleep apnea in adult G47.33 [facility] [id number] [place] [address] 46050- 3997 Jul, Hypertension I10 ; Sleep apnea in adult G47.33 ; Body mass index (BMI) of 40.0-44.9 in adult Z68.41 ; Morbid (severe) obesity due to excess calories E66.01 and Female hirsutism L68.0 [facility] [id number] [place] [address] 69701- 6268 Jul, Generalized anxiety disorder 300.02 [facility] [id number] [place] [address] 04121- 3999 Jul, Generalized anxiety disorder 300.02 [facility] [id number] [place] [address] 42055 -6598 Jun, Chronic fatigue R53.82 [facility] [id number] [place] [address] 98563- 7147 Jun, Generalized anxiety disorder F41.1 [facility] [id number] [place] [address] 76160- 6428 May, Generalized anxiety disorder 300.02 [facility] [id number] [place] [address] 92203- 9171 Apr, Generalized anxiety disorder F41.1 ; Hypertension I10 ; Hyperlipidemia E78.5 ; Female hirsutism L68.0 and Sleep apnea in adult G47.33 [facility] [id number] [place] [address] 47949- 1479 Mar, Hypertension I10 and Generalized anxiety disorder F41.1 [facility] [id number] [place] [address] 66045- 0805 Mar, [facility] [id number] [place] [address] 96525- 4965 February, Hypertension I10 and Generalized anxiety disorder F41.1 [facility] [id number] [place] [address] 11281- 7334 February, Generalized anxiety disorder 300.02 [facility] [id number] [place] [address] 38002 -2011 February, Pelvic pain R10.2 and Painful bladder spasm R30.1 [facility] [address] 76631- 2375 Jan, Generalized anxiety disorder 300.02 [facility] [address] 67942- 2584 Dec, Obesity, unspecified E66.9 ; Generalized anxiety disorder F41.1 and Hypertension I10 [facility] [address] 61924- 1143 15 Nov, 2016 Generalized anxiety disorder F41.1 ; Hypertension I10 ; Depression F32.9 and Obesity, unspecified E66.9 [facility] [id number] [place] [address] 76878- 0430 Nov, Generalized anxiety disorder 300.02 [facility] [address] 68441- 5459 Oct, [facility] [id number] [place] [address] 38566- 9654 Sep, History of pneumonia Z87.01 ; Hypokalemia E87.6 ; Hypertension I10 and Encounter for immunization Z23 [facility] [id number] [place] [address] 47810- 3889 Jul, [facility] [address] 71451- 3933 Apr, Hypertension I10 ; Hypercholesteremia E78.0 ; Obesity, unspecified E66.9 ; Anxiety F41.9 and Lumbago M54.[address] 43511- 9072 Apr, Depression F32.9 [facility] [id number] [address]- 8893 Mar, Essential (primary) hypertension I10 [facility] [address] [id number] [place] [address] Jan [facility] [address] [place] [address]- 8485 Dec, [facility] [id number] [place] [address] 86907- 2320 Dec, Generalized anxiety disorder F41.1 and Hypertension I10 [facility] [id number] [place] [address] 56617- 1615 Dec, [facility] [id number] [place] [address] 05822- 0420 Dec, Abdominal pain R10.9 [facility] [address] [place] [address] 40664- 2235 Dec, Left sided abdominal pain of unknown cause R10.30 [facility] [address] [address]- 0375 Nov, Generalized anxiety disorder 300.02 [facility] [address] [address]- 1968 Nov, Female hirsutism L68.0 ; Hypertension I10 ; Hyperlipidemia E78.5 ; Depression F32.9 and Anxiety F41.9 [facility] [address] [address]- 8449 Oct, [facility] [address] [address]- 8311 Oct, [facility] [address], [place] [address]- 6619 Oct, [facility] [address] [place] [address]- 1262 Oct, [facility] [id number] [place] [address] 91630- 9654 07 Oct, 2016 Well woman exam Z01.419 ; Encounter for screening for malignant neoplasm of cervix Z12.4 ; Yeast infection B37.9 ; Family history of diabetes mellitus Z83.3 ; Other fatigue R53.83 ; Left sided abdominal pain R10.9 ; Abdominal cramping R10.9 ; Generalized anxiety disorder F41.1 ; Depression, unspecified depression type F32.9 ; Female hirsutism L68.0 and Obesity, unspecified obesity severity, unspecified obesity type E66.9 [facility] [id number] [place] [address] 75273- 3789 16 Jun, 2015 Generalized anxiety disorder 300.02 [facility] [address] 47559- 0041 04 Jun, 2015 Chest pain 786.50 ; Hypertension 401.9 ; Hyperlipemia 272.4 and Obesity 278.[address] 37615- 9385 Apr, Generalized anxiety disorder 300.02 [facility] [id number] [place] [address] 90528- 5623 Apr, Generalized anxiety disorder 300.02 [facility] [id number] [place] [address] 25904- 6913 Apr, [facility] [id number] [place] [address] 94134- 7589 Apr, [facility] [address] 42663- 1906 Apr, Abdominal pain 789.00 ; Dehydration 276.51 ; Generalized anxiety disorder 300.02 ; Other and unspecified bipolar disorders 296.89 ; Obesity, unspecified 278.00 ; Family history of hypercholesterolemia V18.19 ; Diarrhea 787.91 ; Sleep apnea in adult 327.23 and Essential hypertension 401.9 [facility] [id number] [place] [address] 13648- 3916 Mar, Generalized anxiety disorder 300.02 [facility] [place] [facility] [address] [id number] [place] [address]- 2097 February, [facility] [place] [facility] [address] [id number] [place] [address]- 8576 Jan, [facility] [place] [facility] [address] [id number] [place] [address]- 0666 Jan, [facility] [place] [facility] [address] [id number] [place] [address]- 0276 Oct, [facility] [place] [facility] [address] [id number] [place] [address]- 4572 Oct, [facility] [place] [facility] [address] [id number] [place] [address]- 8957 Oct, [facility] [place] [facility] [address] [id number] [place] 3284 Oct, [facility] [place] [facility] [address] [id number] [place] [address]- 8378 Sep, [facility] [place] [facility] [address] [id number] [place] [address]- 0041 Sep, [facility] [place] [facility] [address] [id number] [place] [address]- 7279 Sep, [facility] [place] [facility] [address] [id number] [place] 5483 Sep, [facility] [place] [facility] [address] [id number] [place] [address]- 8792 Sep, [facility] [place] [facility] [address] [id number] [place] [address]- 5238 Sep, [facility] [place] [facility] [address] [id number] [place] [address]- 5396 Sep, [facility] [place] [facility] [address] [id number] [place] [address]- 6596 Aug, [facility] [place] [facility] [address] [id number] [place] [address]- 4054 Aug, [facility] [place] [facility] [address] [id number] [place] [address]- 7221 Aug, [facility] [place] [facility] [address] [id number] [place] [address]- 9219 Aug, [facility] [place] [facility] [address] [id number] [place] 3590 Jul, [facility] [place] [facility] [address] [id number] [place] [address]- 8584 Jul, [facility] [place] [facility] [address] [id number] [place] [address]- 7637 Jul, [facility] [place] [facility] [address] [id number] [place] [address]- 1277 Jul, [facility] [place] [facility] [address] [id number] [place] [address]- 0174 Jul, [facility] [place] [facility] [address] [id number] [place] [address]- 7394 Jul, [facility] [place] [facility] [address] [id number] [place] [address]- 7993 Jul, [facility] [place] [facility] [address] [id number] [place] [address]- 4935 02 Jul, 2014 [facility] [place] [facility] [address] [id number] [address]- 2818 16 Jun, 2014 [facility] [place] [facility] [address] [id number], [place] [address]- 6754 16 Jun, 2013 [facility] [place] [facility] [address] [id number] [place] [address]- 7343 15 Jun, 2014 [facility] [place] [facility] [address] [id number], [place] [address]- 4792 15 Jun, 2014 [facility] [place] [facility] [address] [id number], [place] [address]- 7422 09 Jun, 2013 [facility] [place] [facility] [address] [id number] [place] [address]- 1806 09 Sep, 2013 [facility] [place] [facility] [address] [id number] [place] [address]- 6872 04 Sep, 2013 [facility] [place] [facility] [address] [id number] [place] [address]- 6756 Jun, 2013 [facility] [place] [facility] [address] [id number] [place] [address]- 8278 Jun, 2013 [facility] [place] [facility] [address] [id number] [place] [address]- 4427 Jun, 2013 [facility] [place] [facility] [address] [id number] [place] [address]- 4135 Jun, 2013 [facility] [place] [facility] [address] [id number] [place] [address]- 2684 Jun, 2013 [facility] [place] [facility] [address] [id number] [place] [address]- 4068 Jun, 2013 [facility] [place] [facility] [address] [id number] [place] [address]- 8944 Jun, 2013 [facility] [place] [facility] [address] [id number] [place] [address]- 7136 Jun, 2013 [facility] [place] [facility] [address] [id number] [place] [address]- 9622 Jun, 2013 [facility] [place] [facility] [address] [id number] [place] [address]- 3772 May, [facility] [place] [facility] [address] [id number] [place] [address]- 6282 May, [facility] [place] [facility] [address] [id number] [place] [address]- 5765 Apr, [facility] [place] [facility] [address] [id number] [place] [address]- 3771 Apr, [facility] [place] [facility] [address] [id number] [place] [address]- 4304 Apr, [facility] [place] [facility] [address] [id number] [place] [address]- 9821 Apr, 2013 [facility] [place] [facility] [address] [id number] [place] [address]- 9596 Apr, 2013 [facility] [place] [facility] [address] [id number] [place] [address]- 0305 Apr, 2013 [facility] [place] [facility] [address] [id number] [place] [address]- 4364 Apr, 2013 [facility] [place] [facility] [address] [id number] [place] [address]- 3358 Apr, 2013 [facility] [place] [facility] [address] [id number] [place] [address]- 1646 Apr, 2013 [facility] [place] [facility] [address] [id number] [place] [address]- 2216 Apr, 2013 [facility] [place] [facility] [address] [id number] [place] [address]- 0059 Apr, 2013 [facility] [place] [facility] [address] [id number] [place] [address]- 0427 Apr, 2013 [facility] [place] [facility] [address] [id number] [place] [address]- 8978 Apr, 2013 [facility] [place] [facility] [address] [id number] [place] [address]- 5942 Apr, 2013 [facility] [place] [facility] [address] [id number] [place] [address]- 7866 Apr, 2013 [facility] [place] [facility] [address] [id number] [place] [address]- 8785 Apr, 2013 [facility] [place] [facility] [address] [id number] [place] [address]- 2277 Apr, 2013 [facility] [place] [facility] [address] [id number] [place] [address]- 8397 Apr, 2013 [facility] [place] [facility] [address] [id number] [place] [address]- 4067 Apr, [facility] [place] [facility] [address] [id number] [place] [address]- 5227 Apr, [facility] [place] [facility] [address] [id number] [place] 7430 Mar, [facility] [place] [facility] [address] [id number] [place] [address]- 4083 Mar, [facility] [place] [facility] [address] [id number] [place] [address]- 6225 February, [facility] [place] [facility] [address] [id number] [place] [address]- 0911 February, [facility] [place] [facility] [address] [id number] [place] [address]- 6232 Jan, [facility] [place] [facility] [address] [id number] [place] [address]- 5486 Jan, [facility] [place] [facility] [address] [id number] [place] [address]- 9857 Jan, [facility] [place] [facility] [address] [id number] [place] [address]- 8808 Jan, [facility] [place] [facility] [address] [id number] [place] [address]- 9128 Dec, [facility] [place] [facility] [address] [id number] [place] [address]- 2308 Dec, [facility] [place] [facility] [address] [id number] [place] [address]- 3977 Oct, [facility] [place] [facility] [address] [id number] [place] [address]- 6281 Oct, [facility] [place] [facility] [address] [id number] [place] [address]- 3130 Oct, [facility] [place] [facility] [address] [id number] [place] [address]- 3918 Oct, [facility] [place] [facility] [address] [id number] [place] [address]- 5536 15 Aug, 2013 [facility] [address] [id number] [place] [address]- 9636 Aug, [facility] [place] [facility] [address] [id number] [place] [address] 2546 Aug, [facility] [place] [facility] [address] [id number] [place] [address]- 9696 Aug, [facility] [place] [facility] [address] [id number] [place] [address]- 6455 Jul, [facility] [place] [facility] [address] [id number] [place] [address]- 0610 Jul, [facility] [place] [facility] [address] [id number] [place] [address]- 4936 Jul, [facility] [place] [facility] [address] [id number] [place] [address]- 9070 Jun, [facility] [place] [facility] [address] [id number] [place] [address]- 9330 May, [facility] [place] [facility] [address] [id number] [place] [address]- 7094 Apr, [facility] [place] [facility] [address] [id number] [place] [address]- 4187 Apr, [facility] [place] [facility] [address] [id number] [place] [address]- 8628 Apr, [facility] [place] [facility] [address] [id number] [place] [address]- 9358 Apr, [facility] [place] [facility] [address] [id number] [place] [address]- 2436 Mar, [facility] [place] [facility] [address] [id number] [place] [address]- 2546 Mar, [facility] [place] [facility] [address] [id number] [place] [address]- 7902 Mar, [facility] [address] [id number] [place] [address]- 6999 Mar, [facility] [address] [id number] [place] [address]- 5413 February, [facility] [address] [id number] [place] [address]- 6042 February, [facility] [address] [id number] [place] [address]- 8708 February, [facility] [address] [id number] [place] [address]- 8854 February, [facility] [address] [id number] [place] [address]- 8744 February, [facility] [address] [id number] [place] [address]- 0715 Jan, [facility] [address] [id number] [place] [address]- 1573 Dec, [facility] [address] [id number] [place] [address]- 2920 Nov, [facility] [address] [id number] [place] [address]- 1861 Nov, [facility] [address] [id number] [place] [address]- 0878 Nov, [facility] [place] [facility] [address] [id number] [place] [address]- 3824 Oct, [facility] [place] [facility] [address] [id number] [place] [address]- 6664 Oct, [facility] [place] [facility] [address] [id number] [place] [address]- 0082 Oct, [facility] [place] [facility] [address] [id number] [place] [address]- 3183 Oct, [facility] [place] [facility] [address] [id number] [place] [address]- 8964 Oct, [facility] [place] [facility] [address] [id number] [place] [address] Oct, [facility] [place] [facility] [address] [id number] [place] [address] Sep, [facility] [place] [facility] [address] [id number] [place] [address] Sep, [facility] [place] [facility] [address] [id number] [place] [address] Sep, [facility] [place] [facility] [address] [id number] [place] [address] Sep, [facility] [place] [facility] [address] [id number] [place] [address] Aug, [facility] [place] [facility] [address] [facility] [id number] [place] [address] Aug, [facility] [place] [facility] [address] [id number] [place] [address] Aug, [facility] [place] [facility] [address] [id number] [place] [address] Aug, [facility] [place] [facility] [address] [facility] [id number] [place] [address] Aug, [facility] [place] [facility] [address] [id number] [place] [address] Aug, [facility] [place] [facility] [address] [id number] [place] [address] Jul, [facility] [place] [facility] [address] [id number] [place] [address] Jul, [facility] [place] [facility] [address] [facility] [id number] [place] [address] Jul, [facility] [place] [facility] [address] [id number] [place] [address] Jul, [facility] [place] [facility] [address] [id number] [place] [address] Jul, [facility] [place] [facility] [address] [id number] [place] [address] Jul, [facility] [place] [facility] [address] [id number] [place] [address] Jul, [facility] [place] [facility] [address] [id number] [place] [address] Jul, [facility] [place] [facility] [address] [id number] [place] [address] Jul, [facility] [place] [facility] [address] [id number] [place] [address] Jul, [facility] [place] [facility] [address] [id number] [place] [address] Jun, [facility] [place] [facility] [address] [id number] [place] [address] 14 Jun, 2012 [facility] [place] [facility] [address] [id number] [place] [address] Jun, [facility] [place] [facility] [address] [id number] [place] [address] May, [facility] [place] [facility] [address] [id number] [place] [address] May, [facility] [place] [facility] [address] [id number] [place] [address]- [address] May, [facility] [place] [facility] [address] [id number] [place] [address] May, [facility] [place] [facility] [address] [id number] [place] [address] Apr, [facility] [place] [facility] [address] [id number] [place] [address] Apr, [facility] [place] [facility] [address] [id number] [place] [address] Apr, [facility] [place] [facility] [address] [id number] [place] [address] Apr, [facility] [place] [facility] [address] [id number] [place] [address] Mar, [facility] [place] [facility] [address] [id number] [place] [address] Mar, [facility] [place] [facility] [address] [id number] [place] [address] Mar, [facility] [place] [facility] [address] [id number] [place] [address] February, [facility] [place] [facility] [address] [id number] [place] [address] February, [facility] [place] [facility] [address] [id number] [place] [address] Jan, [facility] [place] [facility] [address] [id number] [place] [address] Jan, [facility] [place] [facility] [address] [id number] [place] [address] Jan, [facility] [place] [facility] [address] [id number] [place] [address] Dec, [facility] [place] [facility] [address] [id number] [place] [address] Dec, [facility] [place] [facility] [address] [id number] [place] [address] Dec, [facility] [place] [facility] [address] [id number] [place] [address] Dec, [facility] [place] [facility] [address] [id number] [place] [address] 29 Nov, 2011 [facility] [place] [facility] [address] [id number] [place] [address] Nov, [facility] [place] [facility] [address] [id number] [place] [address]- [address] 20 Nov, 2011 [facility] [address] [id number] [place] [address] 16 Nov, 2011 [facility] [place] [facility] [address] [id number] [place] [address] 09 Nov, 2011 [facility] [place] [facility] [address] [id number] [place] [address] Nov, [facility] [place] [facility] [address] [id number] [place] [address] Nov, [facility] [place] [facility] [address] [id number] [place] [address] Oct, [facility] [address] [id number] [place] [address] Oct, [facility] [address] [id number] [place] [address] Oct, [facility] [address] [id number] [place] [address] Oct, [facility] [address] [id number] [place] [address] Oct, [facility] [place] [facility] [address] [id number] [place] [address] Oct, [facility] [address] [id number] [place] [address] Oct, [facility] [place] [facility] [address] [id number] [place] [address] Oct, [facility] [place] [facility] [address] [id number] [place] [address] Sep, [facility] [place] [facility] [address] [id number] [place] [address] Sep, [facility] [place] [facility] [address] [id number], [place] [address] Sep, [facility] [address] [facility] [id number], [place] [address] Sep, [facility] [address] [facility] [id number], [place] [address] Aug, [facility] [address] [facility] [id number], [place] [address] Aug, [facility] [address] [facility] [id number], [place] [address] Aug, [facility] [address] [facility] [id number], [place] [address] Jul, [facility] [address] [facility] [id number], [place] [address] Jul, [facility] [address] [facility] [id number], [place] [address] Jul, [facility] [address] [facility] [id number], [place] [address] Oct, [facility] [address] [facility] [id number], [place] [address] Aug, [facility] [address] [facility] [id number], [place] [address] Aug, [facility] [address] [id number], [place] [address] Sep, [facility] [address] [facility] [id number], [place] [address] Sep, [facility] [address] [facility] [id number], [place] [address] Sep, [facility] [address] [facility] [id number], [place] [address] Jan, IMMUNIZATIONS No Known Immunizations SOCIAL HISTORY Never Assessed REASON FOR VISIT Blood Pressure fu --abraham fulton, patient wants to talk with doctor about other problems PLAN OF CARE Activity Details Follow Up 2 Months Reason: VITAL SIGNS Height 64 in 2017-08-06 Weight 244.5 lbs 2017-08-06 Temperature 97.7 degrees Fahrenheit 2017-08-06 Heart Rate 78 bpm 2017-08-06 Respiratory Rate 18 2017-08-06 BMI 41.96 kg/m2 2017-08-06 Blood pressure systolic 128 mmHg 2017-08-06 Blood pressure diastolic 76 mmHg 2017-08-06 MEDICATIONS Medication Instructions Dosage Frequency Start Date End Date Duration Status Nadolol 40 mg Orally Once a day 1 tablet 24h 90 days Active Lorazepam 0.5 MG Orally 2 times a day 1 tablet as needed 12h 15 Dec, 2016 Active Probiotic Active Cymbalta 30 MG Orally, Take with 60 mg capsule Once a day 1 capsule 24h 06 Jun, 2017 Active BusPIRone HCl 15 mg Orally Once a day TAKE ONE-HALF TABLET BY MOUTH TWICE DAILY 24h 180 days Active Norgestim-Eth Estrad Triphasic 0.18/0.215/0.25 MG-35 MCG Orally Once a day 1 tablet 24h Jul, 28 day(s) Active Super B Complex Active Triamterene-HCTZ 50-25 MG TAKE ONE CAPSULE BY MOUTH IN THE MORNING 30 Active Cymbalta 60 MG Orally, Take with a 30 mg Once a day 1 capsule 24h 30 days Active RESULTS Name Result Date Reference Range LH 2017-08-06 LH 6.3 ESTRADIOL 2017-08-06 Estradiol 53.4 TESTOSTERONE, TOTAL (WOMEN, CHILDREN, HYPOGONADAL MALES) 2017-08-06 Testosterone, Total, LC/MS 32 FSH, SERUM 2017-08-06 FSH 7.9 INSULIN LEVEL 2017-08-06 Insulin 13.9 2.6-24.9 ESTRADIOL 2017-08-06 Estradiol 53.4 INSULIN LEVEL 2017-08-06 Insulin 13.9 2.6-24.9 PROGESTERONE 2017-08-06 Progesterone 0.1 FSH, SERUM 2017-08-06 FSH 7.9 LH 2017-08-06 LH 6.3 TESTOSTERONE, TOTAL (WOMEN, CHILDREN, HYPOGONADAL MALES) 2017-08-06 Testosterone, Total, LC/MS 32 PROCEDURES Procedure Date Ordered Result Body Site ASSAY OF INSULIN Aug 06, 2017 GONADOTROPIN (LH) Aug 06, 2017 VENIPUNCT, ROUTINE* Aug 06, 2017 GONADOTROPIN (FSH) Aug 06, 2017 ASSAY OF TOTAL TESTOSTERONE Aug 06, 2017 ASSAY OF ESTRADIOL Aug 06, 2017 ASSAY OF PROGESTERONE Aug 06, 2017 INSTRUCTIONS MEDICATIONS ADMINISTERED No Known Medications MEDICAL (GENERAL) HISTORY Type Description Date Surgical History fistula repair Surgical History section 2004 Surgical History tonsillectomy Hospitalization History surgeries
--- OUTSIDE RECORDS SUMMARY | 2018-08-05 08:03 | XMS REPORT ---
Author Author ALCIDES RAMESH [facility] Address [address] [place] [address] Care Team Providers Care Resident Services Director Name Role Phone ALCIDES RAMESH Unavailable PROBLEMS Type Condition ICD9-CM Code ORB84-GB Code Onset Dates Condition Status SNOMED Code Problem Body mass index (BMI) of 40.0-44.9 in adult Z68.41 Active 155291825 Problem Chronic fatigue R53.82 Active 98483945 Problem Hypertension I10 Active 49407276 Problem Sleep apnea in adult G47.33 Active [id number] ALLERGIES No Information ENCOUNTERS Encounter Location Date Diagnosis [facility] [address] [address] February, Hypertension I10 [facility] [address] [address] February, Visit for TB skin test Z11.1 ; Encounter for physical examination related to employment Z02.1 ; Hypertension I10 ; Generalized anxiety disorder F41.1 ; BMI 40.0-44.9, adult Z68.41 and Chronic fatigue R53.82 [facility] [id number] [place] [address] 48885- 7973 February, Rectal bleeding K62.5 and BMI 40.0-44.9, adult Z68.41 [facility] [id number] [place] [address] 01989- 0486 Jan, BMI 40.0-44.9, adult Z68.41 and Skin irritation R23.8 [place] [id number] [place] [address] 56234- 8880 Jan, Generalized anxiety disorder F41.1 [place] [address] [place] [address] Dec, [facility] [address] 27137- 0[address] Nov, Body mass index (BMI) of 40.0-44.9 in adult Z68.41 ; Hypertension I10 and Seasonal allergic rhinitis, unspecified trigger J30.2 [facility] [address] [address]- 3476 Nov, Hypertension I10 [facility] [address] 23253- 5987 Nov, Generalized anxiety disorder 300.02 [facility] [address] 40646- 8504 Nov, [facility] [address] 89336- 7710 Oct, [facility] [address] 78100- 2561 Oct, [facility] [address] 63764- 3120 Oct, Acute chest wall pain R07.89 [facility] [id number] [place] [address] 06222- 7364 Oct, [facility] [id number] [place] [address] 74218- 2532 Sep, Left breast mass N63.20 [facility] [id number] [place] [address] 88313- 8784 Sep, Left breast mass N63.20 [facility] [address] 01812- 8610 Aug, Hypertension I10 [facility] [id number] [place] [address] 22398- 8706 07 Aug, 2017 Generalized anxiety disorder 300.02 [facility] [address] 49053- 0036 Jul, Generalized anxiety disorder 300.02 [facility] [id number] [place] [address] 09154- 6967 Jul, Sleep apnea in adult G47.33 [facility] [id number] [place] [address] 36029- 9949 Jul, Hypertension I10 ; Sleep apnea in adult G47.33 ; Body mass index (BMI) of 40.0-44.9 in adult Z68.41 ; Morbid (severe) obesity due to excess calories E66.01 and Female hirsutism L68.0 [facility] [id number] [place] [address] 76107- 0539 Jul, Generalized anxiety disorder 300.02 [facility] [id number] [place] [address] 35613- 4850 Jul, Generalized anxiety disorder 300.02 [facility] [id number] [place] [address] 07912 -9733 Jun, Chronic fatigue R53.82 [facility] [id number] [place] [address] 83872- 6111 Jun, Generalized anxiety disorder F41.1 [facility] [id number] [place] [address] 79306- 9187 May, Generalized anxiety disorder 300.02 [facility] [id number] [place] [address] 08585- 4452 Apr, Generalized anxiety disorder F41.1 ; Hypertension I10 ; Hyperlipidemia E78.5 ; Female hirsutism L68.0 and Sleep apnea in adult G47.33 [facility] [address] [place] [address] 64169- 7487 Mar, Hypertension I10 and Generalized anxiety disorder F41.1 [facility] [id number] [place] [address] 65784- 4268 Mar, [facility] [address] 66154- 1546 February, Hypertension I10 and Generalized anxiety disorder F41.1 [place] [address] 86946- 1334 February, Generalized anxiety disorder 300.02 [facility] [address] 76897 -4624 February, Pelvic pain R10.2 and Painful bladder spasm R30.1 [facility] [address] 43576- 2803 Jan, Generalized anxiety disorder 300.02 [place] [address] 10877- 1056 Dec, Obesity, unspecified E66.9 ; Generalized anxiety disorder F41.1 and Hypertension I10 [place] [address] 73217- 5973 Nov, Generalized anxiety disorder F41.1 ; Hypertension I10 ; Depression F32.9 and Obesity, unspecified E66.9 [place] [id number] [place] [address] 52822- 3619 Nov, Generalized anxiety disorder 300.02 [place] [address] 62266- 9427 Oct, [place] [address] 07265- 3564 Sep, History of pneumonia Z87.01 ; Hypokalemia E87.6 ; Hypertension I10 and Encounter for immunization Z23 [place] [address] 30505- 4134 Jul, [place] [address] 59584- 6321 Apr, Hypertension I10 ; Hypercholesteremia E78.0 ; Obesity, unspecified E66.9 ; Anxiety F41.9 and Lumbago M54.5 [place] [address] [place] [place] [address] 5880 Apr, Depression F32.9 [facility] [address] [place] [address] 23274- 8301 Mar, Essential (primary) hypertension I10 [facility] [place] [address] [address] [place] [id number] [place] [address] Jan [facility] [id number] [place] [address] 34791- 8673 Dec, [facility] [address] [place] [address] 16733- 7527 Dec, Generalized anxiety disorder F41.1 and Hypertension I10 [facility] [address] [place] [address] 99007- 1222 Dec, [facility] [address] [place] [address] 08024- 5130 Dec, Abdominal pain R10.9 [facility] [address] [place] [address] 51485- 0889 Dec, Left sided abdominal pain of unknown cause R10.30 [facility] [address] [place] [address] 25994- 5234 Nov, Generalized anxiety disorder 300.02 [facility] [address] [place] [address] 09029- 5954 Nov, Female hirsutism L68.0 ; Hypertension I10 ; Hyperlipidemia E78.5 ; Depression F32.9 and Anxiety F41.9 [facility] [address] [place] [address] 97945- 9796 Oct, [facility] [id number] [place] [address] 97090- 5451 Oct, [facility] [address] [place] [address] 60123- 6418 Oct, [facility] [address] [place] [address] 53363- 5764 Oct, [place] [address] [place] [address] 41120- 4910 Oct, Well woman exam Z01.419 ; Encounter [...] unspecified obesity severity, unspecified obesity type E66.9 [place] [address] 74682- 4059 16 Jun, 2015 Generalized anxiety disorder 300.02 [place] [address] 96079- 7297 Jun, Chest pain 786.50 ; Hypertension 401.9 ; Hyperlipemia 272.4 and Obesity 278.00 [place] [address] [place] [address] 60632- 7654 Apr, Generalized anxiety disorder 300.[address] 97306- 4811 Apr, Generalized anxiety disorder 300.02 [place] [address] [place] [address] 33057- 7262 Apr, [place] [address] 58700- 3691 Apr, [place] [address] [place] [address] 63459- 3810 Apr, Abdominal pain 789.00 ; Dehydration 276.51 ; Generalized anxiety disorder 300.02 ; Other and unspecified bipolar disorders 296.89 ; Obesity, unspecified 278.00 ; Family history of hypercholesterolemia V18.19 ; Diarrhea 787.91 ; Sleep apnea in adult 327.23 and Essential hypertension 401.[address] 98926- 2455 Mar, Generalized anxiety disorder 300.02 [facility] [address] [facility] [id number] [place] [address]- 9984 February, [facility] [address] [facility] [id number], [place] [address]- 9687 Jan, [facility] [address] [facility] [id number], [place] [address]- 0782 Jan, [facility] [address] [facility] [id number], [place] [address]- 9019 Oct, [facility] [address] [facility] [id number] [place] [address]- 5975 Oct, [facility] [address] [facility] [id number], [place] [address]- 4613 Oct, [facility] [address] [facility] [id number], [place] [address]- 6316 Oct, [facility] [address] [facility] [id number], [place] [address]- 7769 Sep, [facility] [address] [facility] [id number] [place] [address]- 8252 Sep, [facility] [address] [facility] [id number], [place] [address]- 1232 Sep, [facility] [address] [facility] [id number], [place] [address]- 8216 Sep, [facility] [address] [facility] [id number], [place] [address]- 3851 Sep, [facility] [address] [facility] [id number], [place] [address]- 9210 Sep, [facility] [address] [facility] [id number], [place] [address]- 1293 Sep, [facility] [address] [facility] [id number], [place] [address]- 8710 Aug, [facility] [place] [facility] [address] [id number] [place] [address]- 5310 Aug, [facility] [place] [facility] [address] [id number] [place] [address]- 9411 Aug, [facility] [place] [facility] [address] [id number] [place] [address]- 4099 Aug, [facility] [place] [facility] [address] [id number] [place] [address]- 0786 Jul, [facility] [place] [facility] [address] [id number] [place] [address]- 3469 Jul, [facility] [place] [facility] [address] [id number] [place] [address]- 6630 Jul, [facility] [place] [facility] [address] [id number] [place] [address]- 0173 Jul, [facility] [place] [facility] [address] [id number] [place] [address]- 9274 Jul, [facility] [place] [facility] [address] [id number] [place] [address]- 9050 Jul, [facility] [place] [facility] [address] [id number] [place] [address]- 6419 Jul, [facility] [place] [facility] [address] [id number] [place] [address]- 3099 Jul, [facility] [place] [facility] [address] [id number] [place] [address]- 5462 16 Jun, 2014 [facility] [place] [facility] [address] [id number] [place] [address]- 6167 16 Jun, 2014 [facility] [place] [facility] [address] [id number] [place] [address]- 3673 15 Jun, 2014 [facility] [place] [facility] [address] [id number] [place] [address]- 4359 15 Jun, 2014 [facility] [place] [facility] [address] [id number] [place] [address]- 9172 Jun, 2013 [facility] [place] [facility] [address] [id number] [place] [address]- 8585 09 Jun, 2013 [facility] [place] [facility] [address] [id number] [place] [address]- 2619 Jun, 2013 [facility] [place] [facility] [address] [id number] [place] [address]- 9162 Jun, 2013 [facility] [place] [facility] [address] [id number] [place] [address]- 9053 Jun, 2013 [facility] [place] [facility] [address] [id number] [place] [address]- 5429 Jun, 2013 [facility] [place] [facility] [address] [id number] [place] [address]- 2353 Jun, 2013 [facility] [place] [facility] [address] [id number] [place] [address]- 7697 Jun, 2013 [facility] [place] [facility] [address] [id number] [place] [address]- 2844 Jun, 2013 [facility] [place] [facility] [address] [id number] [place] [address]- 3332 Jun, 2013 [facility] [place] [facility] [address] [id number] [place] [address]- 0715 Jun, 2013 [facility] [place] [facility] [address] [id number] [place] [address]- 1738 Jun, 2013 [facility] [place] [facility] [address] [id number] [place] [address]- 4735 May, [facility] [place] [facility] [address] [id number] [place] [address]- 8440 May, [facility] [place] [facility] [address] [id number] [place] [address]- 1864 Apr, [facility] [place] [facility] [address] [id number] [place] [address]- 4290 Apr, [facility] [place] [facility] [address] [id number] [place] [address]- 3250 Apr, 2013 [facility] [place] [facility] [address] [id number] [place] [address]- 0985 Apr, 2013 [facility] [place] [facility] [address] [id number] [place] 7246 Apr, 2013 [facility] [place] [facility] [address] [id number] [place] [address]- 1509 17 Apr, 2013 [facility] [place] [facility] [address] [id number] [place] [address]- 9508 16 Apr, 2013 [facility] [place] [facility] [address] [id number] [place] [address]- 7344 Apr, 2013 [facility] [place] [facility] [address] [id number] [place] [address]- 4925 Apr, 2013 [facility] [place] [facility] [address] [id number] [place] [address]- 3541 Apr, 2013 [facility] [place] [facility] [address] [id number] [place] [address]- 9470 Apr, 2013 [facility] [place] [facility] [address] [id number] [place] [address]- 1325 Apr, 2013 [facility] [place] [facility] [address] [id number] [place] [address]- 7572 Apr, 2013 [facility] [place] [facility] [address] [id number] [place] [address]- 5605 Apr, 2013 [facility] [place] [facility] [address] [id number] [place] [address]- 7523 Apr, 2013 [facility] [place] [facility] [address] [id number] [place] [address]- 3126 Apr, 2013 [facility] [place] [facility] [address] [id number] [place] [address]- 5712 Apr, 2013 [facility] [place] [facility] [address] [id number] [place] [address]- 6320 Apr, [facility] [place] [facility] [address] [id number] [place] [address]- 8750 Apr, [facility] [place] [facility] [address] [id number] [place] [address]- 1879 Apr, [facility] [place] [facility] [address] [id number] [place] [address]- 9104 Mar, [facility] [place] [facility] [address] [id number] [place] [address]- 6506 Mar, [facility] [place] [facility] [address] [id number] [place] [address]- 7304 February, [facility] [place] [facility] [address] [id number] [place] [address]- 4976 February, [facility] [place] [facility] [address] [id number] [place] [address]- 9140 Jan, [facility] [place] [facility] [address] [id number] [place] [address]- 7371 Jan, [facility] [place] [facility] [address] [id number] [place] [address]- 1171 Jan, [facility] [place] [facility] [address] [id number] [place] [address]- 9778 Jan, [facility] [place] [facility] [address] [id number] [place] [address]- 3886 Dec, [facility] [place] [facility] [address] [id number] [place] [address]- 3740 Dec, [facility] [place] [facility] [address] [id number] [place] [address]- 7620 Oct, [facility] [place] [facility] [address] [id number] [place] [address]- 8553 Oct, [facility] [place] [facility] [address] [id number] [place] [address]- 2867 Oct, [facility] [place] [facility] [address] [id number], [place] [address]- 7949 Oct, [facility] [place] [facility] [address] [id number] [place] [address]- 6030 Aug, [facility] [place] [facility] [address] [id number] [place] [address]- 9906 Aug, [facility] [place] [facility] [address] [id number] [place] [address]- 1599 Aug, [facility] [place] [facility] [address] [id number] [place] [address]- 9983 Aug, [facility] [place] [facility] [address] [id number] [place] [address]- 8761 Jul, [facility] [place] [facility] [address] [id number] [place] [address]- 0219 Jul, [facility] [place] [facility] [address] [facility] [id number] [place] [address]- 0009 Jul, [facility] [place] [facility] [address] [id number] [place] [address]- 1838 Jun, [facility] [place] [facility] [address] [facility] [id number] [place] [address]- 9532 May, [facility] [place] [facility] [address] [facility] [id number] [place] [address]- 7096 Apr, [facility] [place] [facility] [address] [id number] [place] [address]- 7478 Apr, [facility] [place] [facility] [address] [id number] [place] [address]- 9206 Apr, [facility] [place] [facility] [address] [id number] [place] [address]- 4526 Apr, [facility] [place] [facility] [address] [facility] [id number] [place] [address]- 4372 Mar, [facility] [place] [facility] [address] [facility] [id number] [place] [address]- 3433 Mar, [facility] [place] [facility] [address] [id number] [place] [address]- 8149 Mar, [facility] [address] [id number] [place] [address]- 8219 Mar, [facility] [place] [facility] [address] [id number] [place] [address]- 5605 February, [facility] [address] [id number] [place] [address]- 0229 February, [facility] [address] [id number] [place] [address]- 7313 February, [facility] [address] [id number] [place] [address]- 9995 February, [facility] [address] [id number] [place] [address]- 9667 February, [facility] [address] [id number] [place] [address]- 2514 Jan, [facility] [address] [id number] [place] [address]- 6383 Dec, [facility] [address] [id number] [place] [address]- 6251 Nov, [facility] [address] [id number] [place] [address]- 8817 Nov, [facility] [address] [id number] [place] [address]- 0671 Nov, [facility] [place] [facility] [address] [id number] [place] [address]- 2266 Oct, [facility] [place] [facility] [address] [id number] [place] [address]- 5857 Oct, [facility] [place] [facility] [address] [id number] [place] [address]- 5377 Oct, [facility] [place] [facility] [address] [id number] [place] [address]- 3036 Oct, [facility] [place] [facility] [address] [id number] [place] [address] Oct, [facility] [place] [facility] [address] [id number] [place] [address] Oct, [facility] [place] [facility] [address] [facility] [id number] [place] [address] Sep, [facility] [place] [facility] [address] [id number] [place] [address] Sep, [facility] [place] [facility] [address] [id number] [place] [address] Sep, [facility] [place] [facility] [address] [facility] [id number] [place] [address] Sep, [facility] [place] [facility] [address] [id number] [place] [address] Aug, [facility] [place] [facility] [address] [id number], [place] [address] Aug, [facility] [place] [facility] [address] [id number] [place] [address] Aug, [facility] [place] [facility] [address] [facility] [id number] [place] [address] Aug, [facility] [place] [facility] [address] [id number], [place] [address] Aug, [facility] [place] [facility] [address] [id number], [place] [address] Aug, [facility] [place] [facility] [address] [id number] [place] [address] Jul, [facility] [place] [facility] [address] [facility] [id number], [place] [address] Jul, [facility] [place] [facility] [address] [facility] [id number], [place] [address] Jul, [facility] [place] [facility] [address] [id number] [place] [address] Jul, [facility] [place] [facility] [address] [id number] [place] [address] Jul, [facility] [place] [facility] [address] [id number] [place] [address] Jul, [facility] [place] [facility] [address] [id number] [place] [address] Jul, [facility] [place] [facility] [address] [id number] [place] [address] Jul, [facility] [place] [facility] [address] [id number] [place] [address] Jul, [facility] [place] [facility] [address] [id number] [place] [address] Jul, [facility] [place] [facility] [address] [id number] [place] [address] Jun, [facility] [place] [facility] [address] [id number] [place] [address]- [address] 14 Jun, 2012 [facility] [place] [facility] [address] [id number] [place] [address] Jun, [facility] [place] [facility] [address] [id number] [place] [address] May, [facility] [place] [facility] [address] [id number] [place] [address] May, [facility] [place] [facility] [address] [id number] [place] [address] May, [facility] [place] [facility] [address] [id number] [place] [address] May, [facility] [place] [facility] [address] [id number] [place] [address] Apr, [facility] [place] [facility] [address] [id number] [place] [address] Apr, [facility] [place] [facility] [address] [id number] [place] [address] Apr, [facility] [place] [facility] [address] [id number] [place] [address] Apr, [facility] [place] [facility] [address] [id number] [place] [address] Mar, [facility] [place] [facility] [address] [id number] [place] [address] Mar, [facility] [place] [facility] [address] [id number] [place] [address] Mar, [facility] [place] [facility] [address] [id number] [place] [address] February, [facility] [place] [facility] [address] [id number] [place] [address] February, [facility] [place] [facility] [address] [id number] [place] [address] Jan, [facility] [place] [facility] [address] [id number] [place] [address] Jan, [facility] [place] [facility] [address] [id number] [place] [address] Jan, [facility] [place] [facility] [address] [id number] [place] [address] Dec, [facility] [place] [facility] [address] [id number] [place] [address] Dec, [facility] [place] [facility] [address] [id number] [place] [address]- [address] Dec, [facility] [place] [facility] [address] [id number] [place] [address]- [address] Dec, [facility] [place] [facility] [address] [id number] [place] [address] Nov, [facility] [place] [facility] [address] [id number] [place] [address] Nov, [facility] [address] [id number] [place] [address] 20 Nov, 2011 [facility] [place] [facility] [address] [id number] [place] [address] 16 Nov, 2011 [facility] [place] [facility] [address] [id number] [place] [address] 09 Nov, 2011 [facility] [place] [facility] [address] [id number] [place] [address] 06 Nov, 2011 [facility] [place] [facility] [address] [id number] [place] [address] Nov, [facility] [place] [facility] [address] [id number] [place] [address] Oct, [facility] [address] [id number] [place] [address] Oct, [facility] [address] [id number] [place] [address] Oct, [facility] [place] [facility] [address] [id number] [place] [address] Oct, [facility] [address] [id number] [place] [address] Oct, [facility] [address] [id number] [place] [address] Oct, [facility] [place] [facility] [address] [id number] [place] [address] Oct, [facility] [place] [facility] [address] [id number] [place] [address] Oct, [facility] [place] [facility] [address] [id number] [place] [address] Sep, [facility] [place] [facility] [address] [id number] [place] [address] Sep, [facility] [address] [facility] [id number], [place] [address] Sep, [facility] [address] [facility] [id number], [place] [address] Sep, [facility] [address] [facility] [id number], [place] [address] Aug, [facility] [address] [facility] [id number], [place] [address] Aug, [facility] [address] [facility] [id number], [place] [address] Aug, [facility] [address] [facility] [id number], [place] [address] Jul, [facility] [address] [facility] [id number], [place] [address] Jul, [facility] [address] [id number], [place] [address] Jul, [facility] [address] [facility] [id number], [place] [address] Oct, [facility] [address] [id number], [place] [address] Aug, [facility] [address] [id number], [place] [address] Aug, [facility] [id number], [place] [address] Sep, [facility] [address] [facility] [id number], [place] [address] Sep, [facility] [id number], [place] [address] Sep, [facility] [address] [id number], [place] [address] Jan, IMMUNIZATIONS No Known Immunizations SOCIAL HISTORY [...]
--- OUTSIDE RECORDS SUMMARY | 2018-08-05 08:05 | XMS REPORT ---
Author Author OSVALDO RODRIGUEZ [facility] Address [address] [place] [address] Care Team Providers Care Coach Cleaner Name Role Phone OSVALDO RODRIGUEZ Unavailable PROBLEMS Type Condition ICD9-CM Code XRQ71-DU Code Onset Dates Condition Status SNOMED Code Problem Body mass index (BMI) of 40.0-44.9 in adult Z68.41 Active 964214846 Problem Chronic fatigue R53.82 Active 34729955 Problem Anal fissure K60.2 Active 81977515 Problem Rectal bleed K62.5 Active 70514971 Problem Hypertension I10 Active 38203923 Problem Sleep apnea in adult G47.33 Active 57297191 ALLERGIES No Information ENCOUNTERS Encounter Location Date Diagnosis [facility] [address] [address]- [address] May, [facility] [address] [address]- 0314 Apr, [facility] [address] 41244- 0330 Mar, [facility] [id number] [place] [address] 89498- 1523 Mar, [facility] [address] 75281- 9956 Mar, Generalized anxiety disorder 300.02 [facility] [address] 13843- [address]69 Mar, Acute serous otitis media of left ear, recurrence not specified H65.02 ; Dizziness R42 and BMI 40.0-44.9, adult Z68.41 [facility] [address] 21361- 3264 February, Hypertension I10 [facility] [id number] [place] [address] 88851- 3236 February, Visit for TB skin test Z11.1 ; Encounter for physical examination related to employment Z02.1 ; Hypertension I10 ; Generalized anxiety disorder F41.1 ; BMI 40.0-44.9, adult Z68.41 and Chronic fatigue R53.82 [place] [address] [address]- 71[address] February, Rectal bleeding K62.5 and BMI 40.0-44.9, adult Z68.41 [place] [address] 8[address]28- 5248 Jan, BMI 40.0-44.9, adult Z68.41 and Skin irritation R23.8 [place] [address] 25816- 8304 Jan, Generalized anxiety disorder F41.1 [place] [address] 67117- 2668 Dec, [place] [address] 85840- 6535 Nov, Body mass index (BMI) of 40.0-44.9 in adult Z68.41 ; Hypertension I10 and Seasonal allergic rhinitis, unspecified trigger J30.2 [place] [id number] [place] [address] 40036- 6408 Nov, Hypertension I10 [place] [id number] [place] [address] 06943- 3141 Nov, Generalized anxiety disorder 300.02 [place] [address] 85907- 3441 Nov, [facility] [id number] [place] [address] 09322- 3282 Oct, [place] [address] 57824- 7102 Oct, [facility] [id number] [place] [address] 48988- 5023 Oct, Acute chest wall pain R07.89 [facility] [id number] [place] [address] 48264- 4783 Oct, [facility] [id number] [place] [address] 00834- 4939 Sep, Left breast mass N63.20 [facility] [id number] [place] [address] 72017- 6540 Sep, Left breast mass N63.20 [facility] [address] 21386- 7185 Aug, Hypertension I10 [facility] [address] 40795- 7677 Aug, Generalized anxiety disorder 300.02 [facility] [id number] [place] [address] 42482- 8729 Jul, Generalized anxiety disorder 300.02 [facility] [address] 08837- 3669 Jul, Sleep apnea in adult G47.33 [facility] [id number] [place] [address] 31813- 3595 Jul, Hypertension I10 ; Sleep apnea in adult G47.33 ; Body mass index (BMI) of 40.0-44.9 in adult Z68.41 ; Morbid (severe) obesity due to excess calories E66.01 and Female hirsutism L68.0 [facility] [id number] [place] [address] 76548- 7457 Jul, Generalized anxiety disorder 300.02 [facility] [id number] [place] [address] 20124- 1599 Jul, Generalized anxiety disorder 300.02 [facility] [id number] [place] [address] 55280 -9376 Jun, Chronic fatigue R53.82 [facility] [id number] [place] [address] 74112- 2727 Jun, Generalized anxiety disorder F41.1 [place] [id number] [place] [address] 21579- 9176 May, Generalized anxiety disorder 300.02 [place] [address] 34413- 4497 Apr, Generalized anxiety disorder F41.1 ; Hypertension I10 ; Hyperlipidemia E78.5 ; Female hirsutism L68.0 and Sleep apnea in adult G47.33 [place] [address] 94892- 3434 Mar, Hypertension I10 and Generalized anxiety disorder F41.1 [place] [address] 71407- 6800 Mar, [place] [address] 21411- 4435 February, Hypertension I10 and Generalized anxiety disorder F41.1 [place] [address] 31249- 6888 February, Generalized anxiety disorder 300.02 [facility] [id number] [place] [address] 78223 -1967 February, Pelvic pain R10.2 and Painful bladder spasm R30.1 [place] [id number] [place] [address] 82514- 9736 Jan, Generalized anxiety disorder 300.02 [place] [address] 58412- 8992 Dec, Obesity, unspecified E66.9 ; Generalized anxiety disorder F41.1 and Hypertension I10 [place] [address] 12826- 9301 Nov, Generalized anxiety disorder F41.1 ; Hypertension I10 ; Depression F32.9 and Obesity, unspecified E66.9 [facility] [address] [address]- 3733 Nov, Generalized anxiety disorder 300.02 [facility] [id number] [place] [address] 15172- 7429 Oct, [facility] [id number] [place] [address] 99342- 8271 Sep, History of pneumonia Z87.01 ; Hypokalemia E87.6 ; Hypertension I10 and Encounter for immunization Z23 [place] [id number] [place] [address] 29733- 5693 Jul, [place] [id number] [place] [address] 05250- 5462 Apr, Hypertension I10 ; Hypercholesteremia E78.0 ; Obesity, unspecified E66.9 ; Anxiety F41.9 and Lumbago M54.5 [place] [id number] [place] [address] 92962- 9533 Apr, Depression F32.9 [place] [id number] [place] [address] 96547- 2075 Mar, Essential (primary) hypertension I10 [address] [id number] [place] [address] Jan [facility] [id number] [place] [address] 10758- 8928 Dec, [facility] [id number] [place] [address] 76961- 8677 Dec, Generalized anxiety disorder F41.1 and Hypertension I10 [facility] [id number] [place] [address] 95942- 3628 Dec, [facility] [id number] [place] [address] 30236- 1613 Dec, Abdominal pain R10.9 [place] [id number] [place] [address] 35478- 0843 Dec, Left sided abdominal pain of unknown cause R10.30 [place] [id number] [place] [address] 78976- 2203 Nov, Generalized anxiety disorder 300.02 [place] [id number] [place] [address] 15119- 6302 Nov, Female hirsutism L68.0 ; Hypertension I10 ; Hyperlipidemia E78.5 ; Depression F32.9 and Anxiety F41.9 [place] [id number] [place] [address] 88520- 0489 Oct, [place] [id number] [place] [address] 90959- 7794 Oct, [place] [id number] [place] [address] 29488- 9006 Oct, [place] [id number] [place] [address] 40777- 4915 Oct, [place] [id number] [place] [address] 75194- 6807 Oct, Well woman exam Z01.419 ; Encounter [...] unspecified obesity severity, unspecified obesity type E66.9 [place] [id number] [place] [address] 57050- 3663 16 Jun, 2015 Generalized anxiety disorder 300.02 [place] [id number] [place] [address] 74391- 0299 04 Jun, 2015 Chest pain 786.50 ; Hypertension 401.9 ; Hyperlipemia 272.4 and Obesity 278.[address] [place] [id number] [place] [address] 96262- 7577 Apr, Generalized anxiety disorder 300.02 [facility] [id number] [place] [address] 79776- 4107 Apr, Generalized anxiety disorder 300.02 [facility] [id number] [place] [address] 89378- 4651 Apr, [facility] [address] 80078- 7510 Apr, [facility] [id number] [place] [address] 92137- 7621 Apr, Abdominal pain 789.00 ; Dehydration 276.51 ; Generalized anxiety disorder 300.02 ; Other and unspecified bipolar disorders 296.89 ; Obesity, unspecified 278.00 ; Family history of hypercholesterolemia V18.19 ; Diarrhea 787.91 ; Sleep apnea in adult 327.23 and Essential hypertension 401.9 [facility] [id number] [place] [address] 10022- 5131 Mar, Generalized anxiety disorder 300.02 [facility] [id number] [place] [address] 04071- 8756 February, [facility] [id number] [place] [address] 76650- 0263 Jan, [facility] [id number] [place] [address] 96701- 0950 Jan, [facility] [id number] [place] [address] 17801- 1511 Oct, [facility] [id number] [place] [address] 58373- 7442 Oct, [facility] [id number] [place] [address] 47543- 9353 Oct, [facility] [id number] [place] [address] 94825- 9010 Oct, [facility] [place] [facility] [address] [id number] [place] [address]- 5913 Sep, [facility] [place] [facility] [address] [id number] [place] [address]- 3404 Sep, [facility] [place] [facility] [address] [id number] [place] [address]- 3106 Sep, [facility] [place] [facility] [address] [id number] [place] [address]- 4666 Sep, [facility] [place] [facility] [address] [id number] [place] [address]- 6213 Sep, [facility] [place] [facility] [address] [id number] [place] [address]- 1485 Sep, [facility] [place] [facility] [address] [id number] [place] [address]- 5935 Sep, [facility] [place] [facility] [address] [id number] [place] [address]- 0730 Aug, [facility] [place] [facility] [address] [id number] [place] [address]- 0223 Aug, [facility] [place] [facility] [address] [id number] [place] [address]- 8801 Aug, [facility] [place] [facility] [address] [facility] [id number] [place] [address]- 4765 Aug, [facility] [place] [facility] [address] [id number] [place] [address]- 6774 Jul, [facility] [place] [facility] [address] [id number] [place] [address]- 9816 Jul, [facility] [place] [facility] [address] [id number] [place] [address]- 6976 Jul, [facility] [place] [facility] [address] [id number] [place] [address]- 8056 Jul, [facility] [place] [facility] [address] [id number] [place] [address]- 4041 14 Jul, 2014 [facility] [place] [facility] [address] [id number] [place] [address]- 8703 14 Jul, 2013 [facility] [place] [facility] [address] [id number] [place] [address]- 0194 02 Jul, 2014 [facility] [place] [facility] [address] [id number] [place] [address]- 4360 02 Jul, 2014 [facility] [place] [facility] [address] [id number] [place] [address]- 6147 16 Jun, 2013 [facility] [place] [facility] [address] [id number] [place] [address]- 9923 16 Jun, 2013 [facility] [place] [facility] [address] [id number] [place] [address]- 2070 15 Jun, 2013 [facility] [place] [facility] [address] [id number] [place] [address]- 5769 15 Jun, 2013 [facility] [place] [facility] [address] [id number] [address]- 7049 09 Jun, 2013 [facility] [place] [facility] [address] [id number] [place] [address]- 0318 09 Jun, 2013 [facility] [place] [facility] [address] [id number] [place] [address]- 6980 04 Jun, 2013 [facility] [place] [facility] [address] [id number], [place] [address]- 4644 04 Sep, 2013 [facility] [place] [facility] [address] [id number], [place] [address]- 4012 02 Sep, 2013 [facility] [place] [facility] [address] [id number] [place] [address]- 5499 02 Sep, 2013 [facility] [place] [facility] [address] [id number] [place] [address]- 6474 02 Sep, 2013 [facility] [place] [facility] [address] [id number] [place] [address]- 9506 02 Sep, 2013 [facility] [place] [facility] [address] [id number] [place] [address]- 7273 Jun, 2013 [facility] [place] [facility] [address] [id number] [place] 0517 Jun, [facility] [place] [facility] [address] [id number] [place] 1990 Jun, [facility] [place] [facility] [address] [id number] [place] [address]- 0576 Jun, [facility] [place] [facility] [address] [id number] [place] [address]- 8515 May, [facility] [place] [facility] [address] [id number] [place] [address]- 1874 May, [facility] [place] [facility] [address] [id number] [place] [address]- 2275 Apr, [facility] [place] [facility] [address] [id number] [place] [address]- 2075 Apr, [facility] [place] [facility] [address] [id number] [place] [address]- 3016 Apr, [facility] [place] [facility] [address] [id number] [place] [address]- 3563 Apr, [facility] [place] [facility] [address] [id number] [place] [address]- 3571 Apr, [facility] [place] [facility] [address] [id number] [place] [address]- 8012 Apr, [facility] [place] [facility] [address] [id number] [place] [address]- 4010 Apr, [facility] [place] [facility] [address] [id number] [place] [address]- 0849 Apr, [facility] [place] [facility] [address] [id number] [place] [address]- 7719 Apr, [facility] [place] [facility] [address] [id number] [place] [address]- 9977 Apr, [facility] [place] [facility] [address] [id number] [place] [address]- 8358 Apr, 2013 [facility] [place] [facility] [address] [id number] [place] [address]- 0550 Apr, 2013 [facility] [place] [facility] [address] [id number] [place] [address]- 6057 Apr, 2013 [facility] [place] [facility] [address] [id number] [place] [address]- 7212 Apr, 2013 [facility] [place] [facility] [address] [id number] [place] [address]- 0695 Apr, 2013 [facility] [place] [facility] [address] [id number] [place] [address]- 7410 Apr, 2013 [facility] [place] [facility] [address] [id number] [place] [address]- 4189 Apr, 2013 [facility] [place] [facility] [address] [id number] [place] [address]- 9390 Apr, [facility] [place] [facility] [address] [id number] [place] [address]- 2975 Apr, [facility] [place] [facility] [address] [id number] [place] [address]- 4653 Apr, [facility] [place] [facility] [address] [id number] [place] [address]- 3493 Mar, [facility] [place] [facility] [address] [id number] [place] [address]- 4271 Mar, [facility] [place] [facility] [address] [id number] [place] [address]- 9127 February, [facility] [place] [facility] [address] [id number] [place] [address]- 3331 February, [facility] [place] [facility] [address] [id number] [place] [address]- 3342 Jan, [facility] [place] [facility] [address] [id number], [place] [address]- 5142 Jan, [facility] [place] [facility] [address] [id number] [place] [address]- 1073 Jan, [facility] [place] [facility] [address] [id number] [place] [address]- 9128 Jan, [facility] [place] [facility] [address] [id number] [place] [address]- 8509 Dec, [facility] [place] [facility] [address] [id number], [place] [address]- 6223 Dec, [facility] [place] [facility] [address] [id number] [place] [address]- 1425 Oct, [facility] [place] [facility] [address] [id number] [place] [address]- 0776 Oct, [facility] [place] [facility] [address] [id number] [place] [address]- 2719 Oct, [facility] [place] [facility] [address] [id number], [place] [address]- 7337 Oct, [facility] [place] [facility] [address] [id number], [place] [address]- 0042 Aug, [facility] [place] [facility] [address] [id number], [place] [address]- 5966 Aug, [facility] [place] [facility] [address] [id number], [place] [address]- 1514 Aug, [facility] [place] [facility] [address] [id number], [place] [address]- 9733 Aug, [facility] [place] [facility] [address] [id number], [place] [address]- 2856 Jul, [facility] [place] [facility] [address] [id number], [place] [address]- 9776 Jul, [facility] [place] [facility] [address] [id number], [place] [address]- 2460 Jul, [facility] [place] [facility] [address] [id number] [place] [address]- 5550 Jun, [facility] [address] [id number] [place] [address]- 6870 May, [facility] [address] [id number] [place] [address]- 5636 Apr, [facility] [address] [id number] [place] [address]- 0946 Apr, [facility] [address] [id number] [place] [address]- 0331 Apr, [facility] [address] [id number] [place] [address]- 7061 Apr, [facility] [address] [id number] [place] [address]- 0518 Mar, [facility] [address] [id number] [place] [address]- 5655 Mar, [facility] [address] [id number] [place] [address]- 4492 Mar, [facility] [address] [id number] [place] [address]- 0435 Mar, [facility] [address] [id number] [place] [address]- 4621 February, [facility] [address] [id number] [place] [address]- 0836 February, [facility] [address] [id number] [place] [address]- 2545 February, [facility] [address] [id number] [place] [address]- 5356 February, [facility] [address] [id number] [place] [address]- 2546 February, [facility] [address] [id number] [place] [address]- 2366 Jan, [facility] [address] [id number] [place] [address] Dec, [facility] [address] [id number] [place] [address] Nov, [facility] [address] [id number] [place] [address] Nov, [facility] [address] [id number] [place] [address] Nov, [facility] [address] [id number] [place] [address] Oct, [facility] [address] [id number] [place] [address] Oct, [facility] [address] [id number] [place] [address] Oct, [facility] [address] [id number] [place] [address] Oct, [facility] [address] [id number] [place] [address] Oct, [facility] [address] [id number], [place] [address] Oct, [facility] [address] [id number], [place] [address] Sep, [facility] [place] [facility] [address] [id number], [place] [address] Sep, [facility] [place] [facility] [address] [id number] [place] [address] Sep, [facility] [place] [facility] [address] [id number], [place] [address] Sep, [facility] [place] [facility] [address] [id number] [place] [address] Aug, [facility] [place] [facility] [address] [id number] [place] [address] Aug, [facility] [place] [facility] [address] [id number] [place] [address] Aug, [facility] [place] [facility] [address] [id number] [place] [address] Aug, [facility] [place] [facility] [address] [facility] [id number] [place] [address] Aug, [facility] [place] [facility] [address] [id number] [place] [address] Aug, [facility] [place] [facility] [address] [id number] [place] [address] Jul, [facility] [place] [facility] [address] [id number] [place] [address] Jul, [facility] [place] [facility] [address] [facility] [id number] [place] [address] Jul, [facility] [place] [facility] [address] [id number] [place] [address] Jul, [facility] [place] [facility] [address] [facility] [id number] [place] [address] Jul, [facility] [place] [facility] [address] [facility] [id number] [place] [address] Jul, [facility] [place] [facility] [address] [facility] [id number] [place] [address] Jul, [facility] [place] [facility] [address] [facility] [id number], [place] [address] Jul, [facility] [place] [facility] [address] [id number] [place] [address] Jul, [facility] [place] [facility] [address] [facility] [id number] [place] [address] Jul, [facility] [place] [facility] [address] [facility] [id number] [place] [address] Jun, [facility] [place] [facility] [address] [id number] [place] [address] 14 Jun, 2012 [facility] [place] [facility] [address] [id number] [place] [address] Jun, [facility] [place] [facility] [address] [id number] [place] [address] May, [facility] [place] [facility] [address] [id number] [place] [address] May, [facility] [place] [facility] [address] [id number] [place] [address] May, [facility] [place] [facility] [address] [id number] [place] [address] May, [facility] [place] [facility] [address] [id number] [place] [address] Apr, [facility] [place] [facility] [address] [id number] [place] [address] Apr, [facility] [place] [facility] [address] [id number] [place] [address] Apr, [facility] [place] [facility] [address] [id number] [place] [address] Apr, [facility] [place] [facility] [address] [id number] [place] [address] Mar, [facility] [place] [facility] [address] [id number] [place] [address] Mar, [facility] [place] [facility] [address] [id number] [place] [address] Mar, [facility] [place] [facility] [address] [id number] [place] [address] February, [facility] [place] [facility] [address] [id number] [place] [address] February, [facility] [place] [facility] [address] [id number] [place] [address] Jan, [facility] [address] [id number] [place] [address] Jan, [facility] [place] [facility] [address] [id number] [place] [address] Jan, [facility] [place] [facility] [address] [facility] [id number] [place] [address] Dec, [facility] [place] [facility] [address] [id number] [place] [address] Dec, [facility] [address] [id number] [place] [address] Dec, [facility] [address] [facility] [id number] [place] [address] Dec, [facility] [address] [facility] [id number] [place] [address] Nov, [facility] [place] [facility] [address] [id number] [place] [address] Nov, [facility] [address] [id number] [place] [address] Nov, [facility] [place] [facility] [address] [facility] [id number] [place] [address] 16 Nov, 2011 [facility] [place] [facility] [address] [id number] [place] [address] Nov, [facility] [place] [facility] [address] [id number] [place] [address] Nov, [facility] [place] [facility] [address] [id number] [place] [address] Nov, [facility] [place] [facility] [address] [id number] [place] [address] Oct, [facility] [place] [facility] [address] [facility] [id number] [place] [address] Oct, [facility] [place] [facility] [address] [id number] [place] [address] 17 Oct, 2011 [facility] [place] [facility] [address] [id number] [place] [address] 17 Oct, 2011 [facility] [place] [facility] [address] [id number] [place] [address] Oct, [facility] [place] [facility] [address] [id number] [place] [address] Oct, [facility] [place] [facility] [address] [id number] [place] [address] Oct, [facility] [place] [facility] [address] [id number] [place] [address] Oct, [facility] [place] [facility] [address] [id number] [place] [address] Sep, [facility] [place] [facility] [address] [id number] [place] [address] Sep, [facility] [place] [facility] [address] [id number] [place] [address] Sep, [facility] [place] [facility] [address] [id number] [place] [address] Sep, [facility] [place] [facility] [address] [id number] [place] [address] Aug, [facility] [place] [facility] [address] [id number] [place] [address] Aug, [facility] [place] [facility] [address] [id number] [place] [address] Aug, [facility] [place] [facility] [address] [id number] [place] [address] Jul, [facility] [place] [facility] [address] [id number] [place] [address] Jul, [facility] [place] [facility] [address] [id number] [place] [address] Jul, [facility] [address] [facility] [id number], [place] [address] Oct, [facility] [address] [facility] [id number], [place] [address] Aug, [facility] [address] [id number], [place] [address] Aug, [facility] [address] [id number], [place] [address] Sep, [facility] [address] [id number], [place] [address] Sep, [facility] [address] [id number], [place] [address] Sep, [facility] [address] [id number], [place] [address] Jan, IMMUNIZATIONS No Known Immunizations SOCIAL HISTORY Never Assessed REASON FOR VISIT f/u PLAN OF CARE Activity Details Follow Up prn Reason: VITAL SIGNS MEDICATIONS Unknown Medications RESULTS No Results PROCEDURES Procedure Date Ordered Result Body Site Psychotherapy, patient &/family, 45 minutes, established patient Nov 26, 2017 INSTRUCTIONS MEDICATIONS ADMINISTERED No Known Medications [...]
--- OUTSIDE RECORDS SUMMARY | 2018-08-05 08:06 | XMS REPORT ---
Author Author GAMAL CLARK Organization [facility] Address [address] [place] [address] Care Team Providers Care Deli Worker Name Role Phone GAMAL CLARK Unavailable PROBLEMS Type Condition ICD9-CM Code STK88-PB Code Onset Dates Condition Status SNOMED Code Problem Body mass index (BMI) of 40.0-44.9 in adult Z68.41 Active 094857390 Problem Chronic fatigue R53.82 Active 44308356 Problem Hypertension I10 Active 52363087 Problem Sleep apnea in adult G47.33 Active 37954292 ALLERGIES No Information ENCOUNTERS Encounter Location Date Diagnosis [place] [id number] [address] Mar, [place] [address] [address] February, Hypertension I10 [place] [address] 6[address]- [address] February, Visit for TB skin test Z11.1 ; Encounter for physical examination related to employment Z02.1 ; Hypertension I10 ; Generalized anxiety disorder F41.1 ; BMI 40.0-44.9, adult Z68.41 and Chronic fatigue R53.82 [facility] [address] [address]- [address] February, Rectal bleeding K62.5 and BMI 40.0-44.9, adult Z68.41 [place] [address] 6[address]- 395[address] Jan, BMI 40.0-44.9, adult Z68.41 and Skin irritation R23.8 [place] [address] 8[address]61- 0971 Jan, Generalized anxiety disorder F41.1 [facility] [address] [place] [id number] [place] [address] 77551- 8915 Dec, [facility] [address] [place] [id number] [place] [address] 88605- 9082 Nov, Body mass index (BMI) of 40.0-44.9 in adult Z68.41 ; Hypertension I10 and Seasonal allergic rhinitis, unspecified trigger J30.2 [facility] [address] 11292- [address]26 Nov, Hypertension I10 [facility] [address] 56621- 3314 Nov, Generalized anxiety disorder 300.02 [facility] [address] 35617- 9797 Nov, [facility] [address] 48882- 3379 Oct, [facility] [address] [place] [id number] [place] [address] 73847- 2877 Oct, [facility] [address] [place] [id number] [place] [address] 24073- 3265 Oct, Acute chest wall pain R07.89 [facility] [address] [place] [id number] [place] [address] 87896- 9087 Oct, [facility] [address] [place] [id number] [place] [address] 77378- 2504 Sep, Left breast mass N63.20 [facility] [address] [place] [id number] [place] [address] 27352- 5068 Sep, Left breast mass N63.20 [facility] [address] [place] [id number] [place] [address] 69545- 9761 Aug, Hypertension I10 [facility] [address] [place] [id number] [place] [address] 33377- 2798 07 Aug, 2017 Generalized anxiety disorder 300.02 [facility] [address] [place] [id number] [place] [address] 65322- 2951 Jul, Generalized anxiety disorder 300.02 [facility] [address] [place] [id number] [place] [address] 71175- 4341 Jul, Sleep apnea in adult G47.33 [facility] [address] [place] [id number] [place] [address] 87522- 8618 Jul, Hypertension I10 ; Sleep apnea in adult G47.33 ; Body mass index (BMI) of 40.0-44.9 in adult Z68.41 ; Morbid (severe) obesity due to excess calories E66.01 and Female hirsutism L68.0 [place] [address] [place] [id number] [place] [address] 21085- 1785 Jul, Generalized anxiety disorder 300.02 [place] [address] 19136- 6486 Jul, Generalized anxiety disorder 300.02 [facility] [address] [place] [id number] [place] [address] 01808 -1371 Jun, Chronic fatigue R53.82 [facility] [address] [place] [id number] [place] [address] 01046- 6057 Jun, Generalized anxiety disorder F41.1 [facility] [address] [place] [id number] [place] [address] 22310- 8133 May, Generalized anxiety disorder 300.02 [facility] [address] 68196- 4814 Apr, Generalized anxiety disorder F41.1 ; Hypertension I10 ; Hyperlipidemia E78.5 ; Female hirsutism L68.0 and Sleep apnea in adult G47.33 [facility] [address] [place] [id number] [place] [address] 47382- 0402 Mar, Hypertension I10 and Generalized anxiety disorder F41.1 [facility] [address] 83989- 9646 Mar, [facility] [address] [place] [id number] [place] [address] 43873- 0374 February, Hypertension I10 and Generalized anxiety disorder F41.1 [facility] [address] [place] [id number] [place] [address] 29305- 1959 February, Generalized anxiety disorder 300.02 [facility] [address] 0[address] -6980 February, Pelvic pain R10.2 and Painful bladder spasm R30.1 [place] [address] 67483- 8934 Jan, Generalized anxiety disorder 300.02 [place] [address] 83822- 8800 Dec, Obesity, unspecified E66.9 ; Generalized anxiety disorder F41.1 and Hypertension I10 [place] [address] 72741- 4739 15 Nov, 2016 Generalized anxiety disorder F41.1 ; Hypertension I10 ; Depression F32.9 and Obesity, unspecified E66.9 [place] [address] [place] [id number] [place] [address] 75629- 8279 Nov, Generalized anxiety disorder 300.02 [place] [address] [place] [id number] [place] [address] 42053- 9961 Oct, [place] [address] 49753- 0233 Sep, History of pneumonia Z87.01 ; Hypokalemia E87.6 ; Hypertension I10 and Encounter for immunization Z23 [place] [address] 75077- 8922 Jul, [place] [address] 94285- 5110 Apr, Hypertension I10 ; Hypercholesteremia E78.0 ; Obesity, unspecified E66.9 ; Anxiety F41.9 and Lumbago M54.5 [facility] [address] [place] [address] 21631- 1936 Apr, Depression F32.9 [facility] [address] [place] [id number] [place] [address] 46263- 9698 Mar, Essential (primary) hypertension I10 [address] [address] Jan [facility] [address] [place] [id number] [place] [address] 97015- 2975 Dec, [facility] [address] [place] [id number] [place] [address] 37310- 2309 Dec, Generalized anxiety disorder F41.1 and Hypertension I10 [facility] [address] [place] [id number] [place] [address] 19046- 5051 Dec, [facility] [address] [place] [id number] [place] [address] 93221- 5413 Dec, Abdominal pain R10.9 [facility] [address] [place] [id number] [place] [address] 46444- 4348 Dec, Left sided abdominal pain of unknown cause R10.30 [facility] [address] [place] [id number] [place] [address] 05500- 8200 Nov, Generalized anxiety disorder 300.02 [facility] [address] [place] [id number] [place] [address] 07874- 0411 Nov, Female hirsutism L68.0 ; Hypertension I10 ; Hyperlipidemia E78.5 ; Depression F32.9 and Anxiety F41.9 [facility] [address] [place] [id number] [place] [address] 38406- 4972 Oct, [facility] [address] [place] [id number] [place] [address] 10163- 1492 Oct, [facility] [address] [place] [id number] [place] [address] 03581- 0212 Oct, [place] [address] [place] [id number] [place] [address] 75607- 0762 Oct, [place] [address] [place] [id number] [place] [address] 42647- 0362 Oct, Well woman exam Z01.419 ; Encounter [...] unspecified obesity severity, unspecified obesity type E66.9 [place] [address] [place] [id number] [place] [address] 02698- 0742 Jun, Generalized anxiety disorder 300.02 [place] [id number] [place] [address] 88570- 2807 Jun, Chest pain 786.50 ; Hypertension 401.9 ; Hyperlipemia 272.4 and Obesity 278.00 [place] [id number] [place] [address] 97823- 7376 Apr, Generalized anxiety disorder 300.02 [place] [address] [place] [id number] [place] [address] 12807- 1595 Apr, Generalized anxiety disorder 300.02 [place] [id number] [place] [address] 88071- 4464 Apr, [place] [address] [place] [id number] [place] [address] 36038- 0670 Apr, [address] 69191- 7090 Apr, Abdominal pain 789.00 ; Dehydration 276.51 ; Generalized anxiety disorder 300.02 ; Other and unspecified bipolar disorders 296.89 ; Obesity, unspecified 278.00 ; Family history of hypercholesterolemia V18.19 ; Diarrhea 787.91 ; Sleep apnea in adult 327.23 and Essential hypertension 401.9 [facility] [address] [facility] [id number] [address]- 4204 Mar, Generalized anxiety disorder 300.02 [facility] [address] [facility] [id number] [address]6 February, [facility] [address] [facility] [id number] [address]- 7411 Jan, [facility] [address] [facility] [id number] [address]- 5408 Jan, [facility] [address] [facility] [id number] [place] [address]- 9275 Oct, [facility] [address] [facility] [id number] [place] [address]- 3268 Oct, [facility] [address] [place] [id number] [address]- 8758 Oct, [facility] [address] [facility] [id number] [address]- 2166 Oct, [facility] [address] [place] [id number] [address]- 8037 Sep, [facility] [address] [facility] [id number] [place] [address]- 0872 Sep, [facility] [address] [place] [id number] [address]- 6377 Sep, [facility] [address] [facility] [id number] [place] [address]- 9774 Sep, [facility] [address] [facility] [id number] [place]- 2536 Sep, [facility] [address] [facility] [id number] [place] [address]- 2779 Sep, [facility] [address] [place] [id number] [address]- 2123 Sep, [facility] [address] [facility] [id number] [place] [address]- 5268 Aug, [facility] [place] [facility] [address] [id number] [place] [address]- 9054 Aug, [facility] [place] [facility] [address] [id number] [place] [address]- 9273 Aug, [facility] [place] [facility] [address] [id number] [place] [address]- 7398 Aug, [facility] [place] [facility] [address] [id number] [place] [address]- 0300 Jul, [facility] [place] [facility] [address] [id number] [place] [address]- 7982 Jul, [facility] [place] [facility] [address] [id number] [place] [address]- 6454 Jul, [facility] [place] [facility] [address] [id number] [place] [address]- 3910 Jul, [facility] [place] [facility] [address] [id number] [place] [address]- 6622 Jul, [facility] [place] [facility] [address] [id number] [place] [address]- 9462 Jul, [facility] [place] [facility] [address] [id number] [place] [address]- 9450 Jul, [facility] [place] [facility] [address] [id number] [place] [address]- 5550 02 Jul, 2014 [facility] [place] [facility] [address] [id number] [place] [address]- 3384 16 Jun, 2014 [facility] [place] [facility] [address] [id number] [place] [address]- 9355 16 Jun, 2014 [facility] [place] [facility] [address] [id number] [place] [address]- 0278 15 Jun, 2014 [facility] [place] [facility] [address] [id number] [place] [address]- 3549 15 Jun, 2014 [facility] [place] [facility] [address] [id number] [place] [address]- 3108 09 Sep, 2013 [facility] [place] [facility] [address] [id number] [place] [address]- 3346 09 Jun, 2013 [facility] [place] [facility] [address] [id number] [place] [address]- 0810 04 Sep, 2013 [facility] [place] [facility] [address] [id number] [place] [address]- 4944 04 Jun, 2013 [facility] [place] [facility] [address] [id number] [place] [address]- 5053 Sep, 2013 [facility] [place] [facility] [address] [id number] [place] [address]- 9868 Jun, 2013 [facility] [place] [facility] [address] [id number] [place] [address]- 0064 Jun, 2013 [facility] [place] [facility] [address] [id number] [place] [address]- 0496 Jun, 2013 [facility] [place] [facility] [address] [id number] [place] [address]- 6267 Jun, 2013 [facility] [place] [facility] [address] [id number] [place] [address]- 9403 Jun, 2013 [facility] [place] [facility] [address] [id number] [place] [address]- 3684 Jun, 2013 [facility] [place] [facility] [address] [id number] [place] [address]- 7091 Jun, 2013 [facility] [place] [facility] [address] [id number] [place] [address]- 5663 May, [facility] [place] [facility] [address] [id number] [place] [address]- 0170 May, [facility] [place] [facility] [address] [id number] [place] [address]- 4617 Apr, [facility] [place] [facility] [address] [id number] [place] [address]- 6333 31 Apr, 2013 [facility] [place] [facility] [address] [id number] [place] [address]- 0648 Apr, 2013 [facility] [place] [facility] [address] [id number] [place] [address]- 6365 Apr, 2013 [facility] [place] [facility] [address] [id number] [place] [address]- 1595 17 Apr, 2013 [facility] [place] [facility] [address] [id number] [place] [address]- 9929 17 Apr, 2013 [facility] [place] [facility] [address] [id number] [place] [address]- 2015 16 Apr, 2013 [facility] [place] [facility] [address] [id number] [place] [address]- 5489 16 Apr, 2013 [facility] [place] [facility] [address] [id number] [place] [address]- 7283 16 Apr, 2013 [facility] [place] [facility] [address] [id number] [place] [address]- 2261 16 Apr, 2013 [facility] [place] [facility] [address] [id number] [place] [address]- 6060 14 Apr, 2013 [facility] [place] [facility] [address] [id number] [place] [address]- 8425 14 Apr, 2013 [facility] [place] [facility] [address] [id number] [place] [address]- 4387 Apr, 2013 [facility] [place] [facility] [address] [id number] [place] [address]- 0634 Apr, 2013 [facility] [place] [facility] [address] [id number] [place] [address]- 5486 Apr, 2013 [facility] [place] [facility] [address] [id number] [place] [address]- 9040 Apr, 2013 [facility] [place] [facility] [address] [id number] [place] [address]- 5226 Apr, 2013 [facility] [place] [facility] [address] [id number] [place] [address]- 1846 Apr, [facility] [place] [facility] [address] [id number] [place] [address]- 6717 Apr, [facility] [place] [facility] [address] [id number] [place] [address]- 9436 Apr, [facility] [place] [facility] [address] [id number] [place] [address]- 7649 Mar, [facility] [place] [facility] [address] [id number] [place] [address]- 8973 Mar, [facility] [place] [facility] [address] [id number] [place] [address]- 8771 February, [facility] [place] [facility] [address] [id number] [place] [address]- 3525 February, [facility] [place] [facility] [address] [id number] [place] [address]- 5558 Jan, [facility] [place] [facility] [address] [id number] [place] [address]- 9786 Jan, [facility] [place] [facility] [address] [id number] [place] [address]- 9149 Jan, [facility] [place] [facility] [address] [id number] [place] [address]- 9787 Jan, [facility] [place] [facility] [address] [id number] [place] [address]- 4190 Dec, [facility] [place] [facility] [address] [id number] [place] [address]- 8006 Dec, [facility] [place] [facility] [address] [id number] [place] [address]- 7241 Oct, [facility] [place] [facility] [address] [id number] [place] [address]- 2066 Oct, [facility] [place] [facility] [address] [id number] [place] [address]- 1808 Oct, [facility] [place] [facility] [address] [id number] [place] [address]- 6284 Oct, [facility] [place] [facility] [address] [id number] [place] [address]- 8267 Aug, [facility] [place] [facility] [address] [id number] [place] [address]- 0109 Aug, [facility] [place] [facility] [address] [id number] [place] [address]- 4400 Aug, [facility] [place] [facility] [address] [id number] [place] [address]- 4476 Aug, [facility] [place] [facility] [address] [id number] [place] [address]- 4455 Jul, [facility] [place] [facility] [address] [id number] [place] [address]- 4467 Jul, [facility] [place] [facility] [address] [id number] [place] [address]- 2287 Jul, [facility] [place] [facility] [address] [id number] [place] [address]- 2722 Jun, [facility] [place] [facility] [address] [id number] [place] [address]- 4822 May, [facility] [place] [facility] [address] [id number] [place] [address]- 3227 Apr, [facility] [place] [facility] [address] [id number] [address]- 6285 Apr, [facility] [place] [facility] [address] [id number] [place] [address]- 1070 Apr, [facility] [place] [facility] [address] [id number] [place] [address]- 1992 Apr, [facility] [place] [facility] [address] [id number] [place] [address]- 4908 Mar, [facility] [place] [facility] [address] [id number] [place] [address]- 8089 Mar, [facility] [address] [id number] [place] [address]- 7094 Mar, [facility] [address] [id number] [place] [address]- 9729 Mar, [facility] [address] [id number] [place] [address]- 7050 February, [facility] [address] [id number] [place] [address]- 2005 February, [facility] [address] [id number] [place] [address]- 5563 February, [facility] [address] [id number] [place] [address]- 1236 February, [facility] [address] [id number] [place] [address]- 3896 February, [facility] [address] [id number] [place] [address]- 5968 Jan, [facility] [address] [id number] [place] [address]- 8269 Dec, [facility] [address] [id number] [place] [address]- 7175 Nov, [facility] [address] [id number] [place] [address]- 2687 Nov, [facility] [place] [facility] [address] [id number] [place] [address]- 4770 Nov, [facility] [place] [facility] [address] [id number] [place] [address]- 8946 Oct, [facility] [place] [facility] [address] [id number] [place] [address]- 6242 Oct, [facility] [place] [facility] [address] [id number] [place] [address]- 2780 Oct, [facility] [place] [facility] [address] [id number] [place] [address]- 8689 Oct, [facility] [place] [facility] [address] [id number] [place] [address]- 9598 Oct, [facility] [place] [facility] [address] [id number] [place] [address] Oct, [facility] [place] [facility] [address] [id number] [place] [address] Sep, [facility] [address] [id number] [place] [address] Sep, [facility] [place] [facility] [address] [id number] [place] [address] Sep, [facility] [address] [id number] [place] [address] Sep, [facility] [address] [id number] [place] [address] Aug, [facility] [place] [facility] [address] [id number] [place] [address] Aug, [facility] [place] [facility] [address] [id number] [place] [address] Aug, [facility] [place] [facility] [address] [id number] [place] [address] Aug, [facility] [place] [facility] [address] [id number] [address] Aug, [facility] [place] [facility] [address] [id number] [place] [address] Aug, [facility] [place] [facility] [address] [id number] [place] [address] Jul, [facility] [place] [facility] [address] [id number] [place] [address] Jul, [facility] [place] [facility] [address] [id number] [place] [address] Jul, [facility] [place] [facility] [address] [id number] [place] [address] Jul, [facility] [place] [facility] [address] [id number] [place] [address] Jul, [facility] [place] [facility] [address] [id number] [place] [address] Jul, [facility] [place] [facility] [address] [id number] [place] [address] Jul, [facility] [place] [facility] [address] [id number] [place] [address] Jul, [facility] [place] [facility] [address] [id number] [place] [address] Jul, [facility] [place] [facility] [address] [id number] [place] [address] Jul, [facility] [place] [facility] [address] [id number] [place] [address] Jun, [facility] [place] [facility] [address] [id number] [place] [address]- [address] 14 Jun, 2012 [facility] [place] [facility] [address] [id number] [place] [address] Jun, [facility] [place] [facility] [address] [id number] [place] [address] May, [facility] [place] [facility] [address] [id number] [place] [address] May, [facility] [place] [facility] [address] [id number] [place] [address] May, [facility] [place] [facility] [address] [id number] [place] [address] May, [facility] [place] [facility] [address] [id number] [place] [address] Apr, [facility] [place] [facility] [address] [id number] [place] [address] 30 Apr, 2012 [facility] [address] [id number] [place] [address] Apr, [facility] [address] [id number] [place] [address] Apr, [facility] [address] [id number] [place] [address] Mar, [facility] [address] [id number] [place] [address] Mar, [facility] [address] [id number] [place] [address] Mar, [facility] [address] [id number] [place] [address] February, [facility] [address] [id number] [place] [address] February, [facility] [address] [id number] [place] [address] Jan, [facility] [address] [id number] [place] [address] Jan, [facility] [address] [id number] [place] [address] Jan, [facility] [address] [id number] [place] [address] Dec, [facility] [address] [id number] [place] [address] Dec, [facility] [place] [facility] [address] [id number] [place] [address] 14 Dec, 2011 [facility] [address] [id number] [place] [address] 08 Dec, 2011 [facility] [address] [id number] [place] [address] Nov, [facility] [address] [id number] [place] [address] Nov, [facility] [place] [facility] [address] [id number] [place] [address] Nov, [facility] [place] [facility] [address] [id number] [place] [address] 16 Nov, 2011 [facility] [place] [facility] [address] [id number] [place] [address] Nov, [facility] [place] [facility] [address] [id number] [place] [address] Nov, [facility] [place] [facility] [address] [id number] [place] [address] Nov, [facility] [place] [facility] [address] [id number] [place] [address] Oct, [facility] [place] [facility] [address] [id number] [place] [address] Oct, [facility] [place] [facility] [address] [id number] [place] [address] Oct, [facility] [place] [facility] [address] [id number] [place] [address] Oct, [facility] [place] [facility] [address] [id number] [place] [address] Oct, [facility] [place] [facility] [address] [id number] [place] [address] Oct, [facility] [place] [facility] [address] [id number] [place] [address] Oct, [facility] [place] [facility] [address] [id number] [place] [address] Oct, [facility] [place] [facility] [address] [id number] [place] [address] Sep, [facility] [place] [facility] [address] [id number] [place] [address] Sep, [facility] [address] [id number] [place] [address] Sep, [facility] [address] [id number] [place] [address] Sep, [facility] [address] [id number] [place] [address] Aug, [facility] [address] [id number] [place] [address] Aug, [facility] [address] [id number] [place] [address] Aug, [facility] [address] [facility] [id number] [place] [address] Jul, [facility] [address] [facility] [id number] [place] [address] Jul, [facility] [address] [id number] [place] [address] Jul, [facility] [address] [facility] [id number] [place] [address] Oct, [facility] [address] [facility] [id number] [place] [address] Aug, [facility] [address] [facility] [id number] [place] [address] Aug, [facility] [address] [facility] [id number] [place] [address] Sep, [facility] [address] [facility] [id number] [place] [address] Sep, [facility] [address] [facility] [id number] [place] [address] Sep, [facility] [address] [facility] [id number] [place] [address] Jan, IMMUNIZATIONS No Known Immunizations SOCIAL HISTORY Never Assessed REASON FOR VISIT per x ray results PLAN OF CARE VITAL SIGNS MEDICATIONS Unknown [...]
--- OUTSIDE RECORDS SUMMARY | 2018-08-05 08:06 | XMS REPORT ---
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 Name Role Phone MIGUELITO LEWIS Unavailable PROBLEMS Type Condition ICD9-CM Code BHO39-UF Code Onset Dates Condition Status SNOMED Code Problem Body mass index (BMI) of 40.0-44.9 in adult Z68.41 Active 468404005 Problem Chronic fatigue R53.82 Active 99949943 Problem Anal fissure K60.2 Active 22206663 Problem Rectal bleed K62.5 Active 11799972 Problem Hypertension I10 Active 08217160 Problem Sleep apnea in adult G47.33 Active 30161182 ALLERGIES No Information ENCOUNTERS Encounter Location Date Diagnosis [facility] [address] [address]- [address] May, [facility] [address] [address]- 9503 Apr, [facility] [id number] [place] [address] 74160- 6948 Mar, [facility] [id number] [place] [address] 30307- 4747 Mar, [facility] [address] [address]- 0833 Mar, Generalized anxiety disorder 300.02 [facility] [address] [address]- 6253 Mar, Acute serous otitis media of left ear, recurrence not specified H65.02 ; Dizziness R42 and BMI 40.0-44.9, adult Z68.41 [facility] [id number] [place] [address] 20065- 1746 February, Hypertension I10 [facility] [id number] [place] [address] 89446- 1541 February, Visit for TB skin test Z11.1 ; Encounter for physical examination related to employment Z02.1 ; Hypertension I10 ; Generalized anxiety disorder F41.1 ; BMI 40.0-44.9, adult Z68.41 and Chronic fatigue R53.82 [facility] [facility] [address] [address]- 6307 February, Rectal bleeding K62.5 and BMI 40.0-44.9, adult Z68.41 [facility] [facility] [address] 24223- 8117 Jan, BMI 40.0-44.9, adult Z68.41 and Skin irritation R23.8 [facility] [address] 98180- 1847 Jan, Generalized anxiety disorder F41.1 [facility] [address] 00092- 4897 Dec, [facility] [address] 49031- 8062 Nov, Body mass index (BMI) of 40.0-44.9 in adult Z68.41 ; Hypertension I10 and Seasonal allergic rhinitis, unspecified trigger J30.2 [facility] [id number] [place] [address] 13443- 8494 Nov, Hypertension I10 [facility] [id number] [place] [address] 91822- 3386 Nov, Generalized anxiety disorder 300.02 [facility] [address] 28354- 2680 Nov, [facility] [id number] [place] [address] 70220- 6934 Oct, [facility] [address] 40371- 7376 Oct, [facility] [address] [place] [address] 67219- 2836 Oct, Acute chest wall pain R07.89 [facility] [id number] [place] [address] 92666- 3561 Oct, [facility] [id number] [place] [address] 35475- 2359 Sep, Left breast mass N63.20 [facility] [id number] [place] [address] 42116- 6698 Sep, Left breast mass N63.20 [facility] [id number] [place] [address] 49881- 6908 Aug, Hypertension I10 [facility] [id number] [place] [address] 65067- 0055 Aug, Generalized anxiety disorder 300.02 [facility] [id number] [place] [address] 07923- 6616 Jul, Generalized anxiety disorder 300.02 [facility] [id number] [place] [address] 56740- 3471 Jul, Sleep apnea in adult G47.33 [facility] [id number] [place] [address] 71305- 4603 Jul, Hypertension I10 ; Sleep apnea in adult G47.33 ; Body mass index (BMI) of 40.0-44.9 in adult Z68.41 ; Morbid (severe) obesity due to excess calories E66.01 and Female hirsutism L68.0 [facility] [id number] [place] [address] 41633- 8530 Jul, Generalized anxiety disorder 300.02 [facility] [id number] [place] [address] 87112- 5419 Jul, Generalized anxiety disorder 300.02 [facility] [id number] [place] [address] 22255 -3196 Jun, Chronic fatigue R53.82 [facility] [address] [place] [address] 27401- 2402 Jun, Generalized anxiety disorder F41.1 [facility] [address] [place] [address] 33120- 9157 May, Generalized anxiety disorder 300.02 [facility] [address] [place] [address] 41262- 0326 Apr, Generalized anxiety disorder F41.1 ; Hypertension I10 ; Hyperlipidemia E78.5 ; Female hirsutism L68.0 and Sleep apnea in adult G47.33 [facility] [address] 56181- 3933 Mar, Hypertension I10 and Generalized anxiety disorder F41.1 [facility] [address] [place] [address] 97954- 6814 Mar, [facility] [address] [place] [address] 71702- 3709 February, Hypertension I10 and Generalized anxiety disorder F41.1 [facility] [address] [place] [address] 86513- 6283 February, Generalized anxiety disorder 300.02 [facility] [address] [place] [address] 87332 -2141 February, Pelvic pain R10.2 and Painful bladder spasm R30.1 [facility] [address] [place] [address] 59361- 7126 Jan, Generalized anxiety disorder 300.02 [facility] [address] [place] [address] 56137- 3690 Dec, Obesity, unspecified E66.9 ; Generalized anxiety disorder F41.1 and Hypertension I10 [facility] [facility] [address] [place] [address] 59497- 2096 Nov, Generalized anxiety disorder F41.1 ; Hypertension I10 ; Depression F32.9 and Obesity, unspecified E66.9 [facility] [address] [place] [address] 69753- 1697 Nov, Generalized anxiety disorder 300.02 [facility] [address] [place] [address] 96843- 4001 Oct, [facility] [address] [place] [address] 75288- 9212 Sep, History of pneumonia Z87.01 ; Hypokalemia E87.6 ; Hypertension I10 and Encounter for immunization Z23 [facility] [id number] [place] [address] 71362- 5796 Jul, [facility] [address] [place] [address] 77708- 5435 Apr, Hypertension I10 ; Hypercholesteremia E78.0 ; Obesity, unspecified E66.9 ; Anxiety F41.9 and Lumbago M54.5 [facility] [facility] [address] [place] [address] 23983- 2650 Apr, Depression F32.9 [facility] [facility] [address] [place] [address] 31944- 2627 Mar, Essential (primary) hypertension I10 [facility] [address] [id number] [place] [address] Jan [facility] [address] [place] [address] 58202- 3876 Dec, [facility] [id number] [place] [address] 89230- 2046 Dec, Generalized anxiety disorder F41.1 and Hypertension I10 [facility] [address] [place] [address] 46944- 5831 Dec, [facility] [address] [place] [address] 02058- 3693 Dec, Abdominal pain R10.9 [facility] [facility] [address] [place] [address] 11505- 2768 Dec, Left sided abdominal pain of unknown cause R10.30 [facility] [address] [place] [address] 25976- 4690 Nov, Generalized anxiety disorder 300.02 [facility] [address] [place] [address] 97572- 6308 Nov, Female hirsutism L68.0 ; Hypertension I10 ; Hyperlipidemia E78.5 ; Depression F32.9 and Anxiety F41.9 [facility] [address] [place] [address] 16103- 5150 Oct, [facility] [facility] [address] 33198- 5383 Oct, [facility] [address] [place] [address] 28783- 9148 Oct, [facility] [address] [place] [address] 76680- 4688 Oct, [facility] [address] [place] [address] 76925- 0058 Oct, Well woman exam Z01.419 ; Encounter [...] severity, unspecified obesity type E66.9 [facility] [address] [place] [address] 65563- 2376 16 Jun, 2015 Generalized anxiety disorder 300.02 [place] [address] [place] [address] 43436- 8535 04 Jun, 2015 Chest pain 786.50 ; Hypertension 401.9 ; Hyperlipemia 272.4 and Obesity 278.00 [place] [address] [address] 6754 Apr, Generalized anxiety disorder 300.02 [facility] [address] [place] [address] 45828921- 6539 Apr, Generalized anxiety disorder 300.02 [facility] [address] [address]- 2107 Apr, [facility] [id number] [place] [address] 33489- 3792 Apr, [facility] [address] [place] [address] 60326- 0318 Apr, Abdominal pain 789.00 ; Dehydration 276.51 ; Generalized anxiety disorder 300.02 ; Other and unspecified bipolar disorders 296.89 ; Obesity, unspecified 278.00 ; Family history of hypercholesterolemia V18.19 ; Diarrhea 787.91 ; Sleep apnea in adult 327.23 and Essential hypertension 401.9 [facility] [address] [place] [address] 87246- 0179 Mar, Generalized anxiety disorder 300.02 [facility] [address] [place] [address] 16960- 8123 February, [facility] [address] [place] [address] 79981- 0982 Jan, [facility] [address] [address]- 9968 Jan, [facility] [address] [address]- 1621 Oct, [facility] [address] [address]- 4300 Oct, [facility] [address] [address]- 9378 Oct, [facility] [address] [address]- 9705 Oct, [facility] [address] [place] [address]- 6714 Sep, [facility] [place] [facility] [address] [id number] [place] [address]- 2467 Sep, [facility] [place] [facility] [address] [id number] [place] 1678 Sep, [facility] [place] [facility] [address] [id number] [place] [address]- 3336 Sep, [facility] [place] [facility] [address] [id number] [place] [address]- 8672 Sep, [facility] [place] [facility] [address] [id number] [place] 8766 Sep, [facility] [place] [facility] [address] [id number] [place] [address]- 2392 Sep, [facility] [place] [facility] [address] [id number] [place] [address]- 3683 Aug, [facility] [place] [facility] [address] [id number] [place] [address]- 0525 Aug, [facility] [place] [facility] [address] [id number] [place] [address]- 5547 Aug, [facility] [place] [facility] [address] [facility] [id number] [place] [address]- 6952 Aug, [facility] [place] [facility] [address] [id number] [place] [address]- 3462 Jul, [facility] [place] [facility] [address] [id number] [place] [address]- 2564 Jul, [facility] [place] [facility] [address] [id number] [place] [address]- 9516 30 Jul, 2014 [facility] [place] [facility] [address] [id number] [place] [address]- 9046 30 Jul, 2014 [facility] [place] [facility] [address] [id number] [place] [address]- 8781 14 Jul, 2014 [facility] [place] [facility] [address] [id number] [place] [address]- 3732 14 Jul, 2014 [facility] [place] [facility] [address] [id number] [place] [address]- 4419 02 Jul, 2014 [facility] [place] [facility] [address] [id number] [place] [address]- 8858 02 Jul, 2014 [facility] [place] [facility] [address] [id number] [place] [address]- 8483 16 Jun, 2013 [facility] [place] [facility] [address] [id number] [place] [address]- 4780 16 Jun, 2013 [facility] [place] [facility] [address] [id number] [place] [address]- 7513 15 Jun, 2013 [facility] [place] [facility] [address] [id number] [place] [address]- 5568 15 Jun, 2013 [facility] [place] [facility] [address] [id number], [place] [address]- 3022 09 Jun, 2013 [facility] [place] [facility] [address] [id number] [place] [address]- 9927 09 Jun, 2013 [facility] [place] [facility] [address] [id number], [place] [address]- 0631 04 Jun, 2013 [facility] [place] [facility] [address] [id number], [place] [address]- 3311 04 Jun, 2013 [facility] [place] [facility] [address] [id number], [place] [address]- 8582 02 Sep, 2013 [facility] [place] [facility] [address] [id number] [place] [address]- 1592 02 Sep, 2013 [facility] [place] [facility] [address] [id number] [place] [address]- 9238 02 Sep, 2013 [facility] [place] [facility] [address] [id number], [place] [address]- 6648 02 Sep, 2013 [facility] [place] [facility] [address] [id number], [place] [address]- 7864 Jun, [facility] [place] [facility] [address] [id number] [place] [address]- 8505 Jun, [facility] [place] [facility] [address] [id number] [place] [address]- 7808 Jun, [facility] [place] [facility] [address] [id number] [place] [address]- 8665 Jun, [facility] [place] [facility] [address] [id number] [place] [address]- 2654 May, [facility] [place] [facility] [address] [id number] [place] [address]- 6962 May, [facility] [place] [facility] [address] [id number] [place] [address]- 8935 Apr, [facility] [place] [facility] [address] [id number] [place] [address]- 9867 Apr, [facility] [place] [facility] [address] [id number] [place] [address]- 7156 Apr, [facility] [place] [facility] [address] [id number] [place] [address]- 6042 Apr, [facility] [place] [facility] [address] [id number] [place] [address]- 3852 Apr, [facility] [place] [facility] [address] [id number] [place] [address]- 5333 Apr, [facility] [place] [facility] [address] [id number] [place] [address]- 0087 Apr, [facility] [place] [facility] [address] [id number] [place] [address]- 3745 Apr, [facility] [place] [facility] [address] [id number] [place] [address]- 2905 Apr, [facility] [place] [facility] [address] [id number] [place] [address]- 8993 Apr, [facility] [place] [facility] [address] [id number] [place] [address]- 4836 Apr, 2013 [facility] [place] [facility] [address] [id number] [place] [address]- 2761 Apr, 2013 [facility] [place] [facility] [address] [id number] [place] [address]- 1936 Apr, 2013 [facility] [place] [facility] [address] [id number] [place] [address]- 3425 Apr, 2013 [facility] [place] [facility] [address] [id number] [place] [address]- 4125 Apr, 2013 [facility] [place] [facility] [address] [id number] [place] [address]- 5608 Apr, 2013 [facility] [place] [facility] [address] [id number] [place] [address]- 6649 Apr, 2013 [facility] [place] [facility] [address] [id number] [place] [address]- 8003 Apr, 2013 [facility] [place] [facility] [address] [id number] [place] [address]- 7295 Apr, [facility] [place] [facility] [address] [id number] [place] [address]- 7719 Apr, [facility] [place] [facility] [address] [id number] [place] [address]- 5418 Mar, [facility] [place] [facility] [address] [id number] [place] [address]- 1045 Mar, [facility] [place] [facility] [address] [id number] [place] [address]- 8057 February, [facility] [place] [facility] [address] [id number] [place] [address]- 3811 February, [facility] [place] [facility] [address] [id number] [place] [address]- 9716 Jan, [facility] [place] [facility] [address] [id number] [place] [address]- 1388 Jan, [facility] [place] [facility] [address] [id number] [place] [address]- 4938 Jan, [facility] [place] [facility] [address] [id number] [place] [address]- 2180 Jan, [facility] [place] [facility] [address] [id number] [place] [address]- 8976 Dec, [facility] [place] [facility] [address] [id number] [place] [address]- 2814 Dec, [facility] [place] [facility] [address] [id number] [place] [address]- 5328 Oct, [facility] [place] [facility] [address] [id number] [place] [address]- 1984 Oct, [facility] [place] [facility] [address] [id number] [place] [address]- 2185 Oct, [facility] [place] [facility] [address] [id number] [place] [address]- 0608 Oct, [facility] [place] [facility] [address] [id number] [place] [address]- 4607 Aug, [facility] [place] [facility] [address] [id number], [place] [address]- 2725 Aug, [facility] [place] [facility] [address] [id number], [place] [address]- 4614 Aug, [facility] [place] [facility] [address] [id number], [place] [address]- 7070 Aug, [facility] [place] [facility] [address] [id number] [place] [address]- 7792 Jul, [facility] [place] [facility] [address] [id number], [place] [address]- 1697 Jul, [facility] [place] [facility] [address] [id number] [place] [address]- 8263 Jul, [facility] [place] [facility] [address] [id number] [place] [address]- 5414 Jun, [facility] [address] [id number] [place] [address]- 3224 May, [facility] [address] [id number] [place] [address]- 5086 Apr, [facility] [address] [id number] [place] [address]- 2926 Apr, [facility] [address] [id number] [place] [address]- 7342 Apr, [facility] [address] [id number] [place] [address]- 8056 Apr, [facility] [address] [id number] [place] [address]- 7938 Mar, [facility] [address] [id number] [place] [address]- 5652 Mar, [facility] [address] [id number] [place] [address]- 5215 Mar, [facility] [address] [id number] [place] [address]- 9476 Mar, [facility] [address] [id number] [place] [address]- 7158 February, [facility] [address] [id number] [place] [address]- 9550 February, [facility] [address] [id number] [place] [address]- 2544 February, [facility] [place] [facility] [address] [id number] [place] [address]- 9443 February, [facility] [place] [facility] [address] [id number] [place] [address]- 2546 February, [facility] [address] [id number] [place] [address]- 2772 Jan, [facility] [place] [facility] [address] [id number] [place] [address]- 5142 Dec, [facility] [address] [id number] [place] [address]- 9670 Nov, [facility] [address] [id number] [place] [address]- 7238 Nov, [facility] [address] [id number] [place] [address]- 5395 Nov, [facility] [address] [id number] [place] [address]- 4034 Oct, [facility] [address] [id number] [place] [address]- 8168 Oct, [facility] [address] [id number] [place] [address]- 9588 Oct, [facility] [address] [id number] [place] [address]- 2078 Oct, [facility] [address] [id number] [place] [address]- 9301 Oct, [facility] [address] [id number] [place] [address] Oct, [facility] [address] [id number] [place] [address] Sep, [facility] [address] [id number] [place] [address] Sep, [facility] [place] [facility] [address] [id number] [place] [address] Sep, [facility] [place] [facility] [address] [id number] [place] [address] Sep, [facility] [place] [facility] [address] [id number] [place] [address] Aug, [facility] [address] [id number], [place] [address] Aug, [facility] [place] [facility] [address] [id number] [place] [address] Aug, [facility] [place] [facility] [address] [id number] [place] [address] Aug, [facility] [place] [facility] [address] [facility] [id number] [place] [address] Aug, [facility] [place] [facility] [address] [id number] [place] [address] Aug, [facility] [place] [facility] [address] [id number] [place] [address] Jul, [facility] [place] [facility] [address] [id number] [place] [address] Jul, [facility] [place] [facility] [address] [facility] [id number] [place] [address] Jul, [facility] [place] [facility] [address] [id number] [place] [address] Jul, [facility] [place] [facility] [address] [id number] [place] [address] Jul, [facility] [place] [facility] [address] [facility] [id number] [place] [address] Jul, [facility] [place] [facility] [address] [facility] [id number], [place] [address] Jul, [facility] [place] [facility] [address] [facility] [id number], [place] [address] Jul, [facility] [place] [facility] [address] [id number], [place] [address] Jul, [facility] [place] [facility] [address] [facility] [id number] [address] Jul, [facility] [place] [facility] [address] [facility] [id number] [place] [address] Jun, [facility] [place] [facility] [address] [id number] [place] [address] 14 Jun, 2012 [facility] [place] [facility] [address] [id number] [place] [address] 12 Jun, 2012 [facility] [place] [facility] [address] [id number] [place] [address] May, [facility] [place] [facility] [address] [id number] [place] [address] May, [facility] [place] [facility] [address] [id number] [place] [address] May, [facility] [place] [facility] [address] [id number] [place] [address] May, [facility] [place] [facility] [address] [id number] [place] [address] Apr, [facility] [place] [facility] [address] [id number] [place] [address] Apr, [facility] [place] [facility] [address] [id number] [place] [address] Apr, [facility] [place] [facility] [address] [id number] [place] [address] Apr, [facility] [place] [facility] [address] [id number] [place] [address] Mar, [facility] [place] [facility] [address] [id number] [place] [address] Mar, [facility] [place] [facility] [address] [id number] [place] [address] Mar, [facility] [place] [facility] [address] [id number] [place] [address] February, [facility] [place] [facility] [address] [id number] [place] [address] February, [facility] [place] [facility] [address] [id number] [place] [address] Jan, [facility] [place] [facility] [address] [id number] [place] [address] Jan, [facility] [place] [facility] [address] [id number] [place] [address] Jan, [facility] [place] [facility] [address] [id number] [place] [address] 29 Dec, 2011 [facility] [place] [facility] [address] [id number] [place] [address] Dec, [facility] [place] [facility] [address] [id number] [place] [address] Dec, [facility] [place] [facility] [address] [id number] [place] [address] Dec, [facility] [place] [facility] [address] [id number] [place] [id number] Nov, [facility] [place] [facility] [address] [id number] [place] [address] Nov, [facility] [place] [facility] [address] [id number] [place] [address] Nov, [facility] [place] [facility] [address] [facility] [id number] [place] [address] 16 Nov, 2011 [facility] [place] [facility] [address] [id number] [place] [address] Nov, [facility] [place] [facility] [address] [id number] [place] [address] Nov, [facility] [place] [facility] [address] [id number] [place] [address] Nov, [facility] [place] [facility] [address] [id number] [place] [address] Oct, [facility] [place] [facility] [address] [id number] [place] [address] Oct, [facility] [place] [facility] [address] [id number] [place] [address] 17 Oct, 2011 [facility] [address] [id number] [place] [address] Oct, [facility] [place] [facility] [address] [id number] [place] [address] Oct, [facility] [address] [id number] [place] [address] Oct, [facility] [address] [id number] [place] [address] Oct, [facility] [address] [id number] [place] [address] Oct, [facility] [address] [id number] [place] [address] Sep, [facility] [address] [id number] [place] [address] Sep, [facility] [address] [id number] [place] [address] Sep, [facility] [place] [facility] [address] [id number] [place] [address] Sep, [facility] [address] [id number] [place] [address] Aug, [facility] [place] [facility] [address] [id number] [place] [address] Aug, [facility] [place] [facility] [address] [id number] [place] [address] Aug, [facility] [place] [facility] [address] [id number] [place] [address] Jul, [facility] [place] [facility] [address] [id number] [place] [address] Jul, [facility] [place] [facility] [address] [id number] [place] [address] Jul, [facility] [address] [facility] [id number], [place] [address] Oct, [facility] [address] [facility] [id number], [place] [address] Aug, [facility] [address] [facility] [id number], [place] [address] Aug, [facility] [address] [facility] [id number], [place] [address] Sep, [facility] [address] [facility] [id number], [place] [address] Sep, [facility] [address] [facility] [id number], [place] [address] Sep, [facility] [address] [id number], [place] [address] Jan, IMMUNIZATIONS No Known Immunizations SOCIAL HISTORY Never Assessed REASON FOR VISIT Lab results PLAN OF CARE VITAL SIGNS MEDICATIONS [...]
--- OUTSIDE RECORDS SUMMARY | 2018-08-05 08:07 | XMS REPORT ---
Author Author GAMAL CLARK Organization [facility] Address [address] [place] [address] Care Team Providers Care Traffic Ii Manager Name Role Phone GAMAL CLARK Unavailable PROBLEMS Type Condition ICD9-CM Code VZI13-NA Code Onset Dates Condition Status SNOMED Code Problem Body mass index (BMI) of 40.0-44.9 in adult Z68.41 Active 308599503 Problem Chronic fatigue R53.82 Active 53024254 Problem Anal fissure K60.2 Active 31855139 Problem Rectal bleed K62.5 Active 32028398 Problem Hypertension I10 Active 84970543 Problem Sleep apnea in adult G47.33 Active 69972644 ALLERGIES No Information ENCOUNTERS Encounter Location Date Diagnosis [facility] [id number] [place] [address] 13837- 5880 Apr, [facility] [address] 23027- 7098 Mar, [place] [id number] [place] [address] 57151- 5113 Mar, [place] [id number] [place] [address] 16789- 3587 Mar, Generalized anxiety disorder 300.02 [facility] [id number] [place] [address] 72159- 1763 Mar, Acute serous otitis media of left ear, recurrence not specified H65.02 ; Dizziness R42 and BMI 40.0-44.9, adult Z68.41 [facility] [id number] [place] [address] 06268- 4262 February, Hypertension I10 [place] [address] 44285- 4111 February, Visit for TB skin test Z11.1 ; Encounter for physical examination related to employment Z02.1 ; Hypertension I10 ; Generalized anxiety disorder F41.1 ; BMI 40.0-44.9, adult Z68.41 and Chronic fatigue R53.82 [place] [id number] [place] [address] 88207- 8541 February, Rectal bleeding K62.5 and BMI 40.0-44.9, adult Z68.41 [place] [address] 78656- 6222 Jan, BMI 40.0-44.9, adult Z68.41 and Skin irritation R23.[address] 05163- 1797 Jan, Generalized anxiety disorder F41.1 [place] [address] 04870- 3623 Dec, [place] [address] 24763- 8578 Nov, Body mass index (BMI) of 40.0-44.9 in adult Z68.41 ; Hypertension I10 and Seasonal allergic rhinitis, unspecified trigger J30.2 [facility] [id number] [place] [address] 87401- 9878 Nov, Hypertension I10 [place] [address] 44158- 1980 Nov, Generalized anxiety disorder 300.02 [place] [id number] [place] [address] 49414- 1732 Nov, [place] [address] 12300- 7374 Oct, [place] [id number] [place] [address] 60746- 9940 Oct, [place] [address] 13566- 9491 Oct, Acute chest wall pain R07.89 [facility] [id number] [place] [address] 71159- 6556 Oct, [facility] [id number] [place] [address] 39657- 0022 Sep, Left breast mass N63.20 [facility] [id number] [place] [address] 37760- 4288 Sep, Left breast mass N63.20 [facility] [id number] [place] [address] 72504- 1650 Aug, Hypertension I10 [place] [address] 71630- 3200 Aug, Generalized anxiety disorder 300.02 [place] [address] 94226- 0354 Jul, Generalized anxiety disorder 300.02 [facility] [id number] [place] [address] 30795- 1325 Jul, Sleep apnea in adult G47.33 [place] [id number] [place] [address] 07417- 9816 Jul, Hypertension I10 ; Sleep apnea in adult G47.33 ; Body mass index (BMI) of 40.0-44.9 in adult Z68.41 ; Morbid (severe) obesity due to excess calories E66.01 and Female hirsutism L68.0 [facility] [id number] [place] [address] 65621- 0729 Jul, Generalized anxiety disorder 300.02 [facility] [id number] [place] [address] 04952- 0255 Jul, Generalized anxiety disorder 300.02 [facility] [id number] [place] [address] 02439 -2566 Jun, Chronic fatigue R53.82 [facility] [address] 13580- 2264 Jun, Generalized anxiety disorder F41.1 [facility] [id number] [place] [address] 65024- 9780 May, Generalized anxiety disorder 300.02 [facility] [id number] [place] [address] 80803- 7827 Apr, Generalized anxiety disorder F41.1 ; Hypertension I10 ; Hyperlipidemia E78.5 ; Female hirsutism L68.0 and Sleep apnea in adult G47.33 [facility] [id number] [place] [address] 04537- 3479 Mar, Hypertension I10 and Generalized anxiety disorder F41.1 [place] [id number] [place] [address] 12283- 5602 Mar, [place] [id number] [place] [address] 42922- 1241 February, Hypertension I10 and Generalized anxiety disorder F41.1 [facility] [id number] [place] [address] 28399- 7244 February, Generalized anxiety disorder 300.02 [facility] [id number] [place] [address] 66469 -5667 February, Pelvic pain R10.2 and Painful bladder spasm R30.1 [place] [id number] [place] [address] 16750- 6801 Jan, Generalized anxiety disorder 300.02 [facility] [id number] [place] [address] 66850- 8439 Dec, Obesity, unspecified E66.9 ; Generalized anxiety disorder F41.1 and Hypertension I10 [place] [id number] [place] [address] 81473- 1144 15 Nov, 2016 Generalized anxiety disorder F41.1 ; Hypertension I10 ; Depression F32.9 and Obesity, unspecified E66.9 [facility] [id number] [place] [address] 31113- 9594 Nov, Generalized anxiety disorder 300.02 [facility] [address] [address]- 8195 Oct, [place] [id number] [place] [address] 24558- 6553 Sep, History of pneumonia Z87.01 ; Hypokalemia E87.6 ; Hypertension I10 and Encounter for immunization Z23 [place] [id number] [place] [address] 43904- 5152 Jul, [place] [id number] [place] [address] 16311- 5361 Apr, Hypertension I10 ; Hypercholesteremia E78.0 ; Obesity, unspecified E66.9 ; Anxiety F41.9 and Lumbago M54.5 [place] [id number] [place] [address] 58080- 7524 Apr, Depression F32.9 [place] [id number] [place] [address] 27380- 8532 Mar, Essential (primary) hypertension I10 [facility] [address] [id number] [place] [address] Jan [place] [id number] [place] [address] 22930- 5522 Dec, [place] [id number] [place] [address] 13465- 4868 Dec, Generalized anxiety disorder F41.1 and Hypertension I10 [facility] [address] [address]- 2951 Dec, [place] [id number] [place] [address] 29116- 2421 Dec, Abdominal pain R10.9 [place] [id number] [place] [address] 13243- 7241 15 Dec, 2015 Left sided abdominal pain of unknown cause R10.30 [place] [id number] [place] [address] 01438- 7668 Nov, Generalized anxiety disorder 300.02 [place] [id number] [place] [address] 15803- 9047 Nov, Female hirsutism L68.0 ; Hypertension I10 ; Hyperlipidemia E78.5 ; Depression F32.9 and Anxiety F41.9 [place] [id number] [place] [address] 10013- 4358 Oct, [place] [id number] [place] [address] 78368- 6318 Oct, [place] [id number] [place] [address] 38523- 9471 Oct, [place] [id number] [place] [address] 35468- 3238 Oct, [place] [id number] [place] [address] 53201- 0061 Oct, Well woman exam Z01.419 ; Encounter [...] unspecified obesity severity, unspecified obesity type E66.9 [place] [id number] [place] [address] 56377- 3494 Jun, Generalized anxiety disorder 300.02 [place] [id number] [place] [address] 82667- 3328 04 Jun, 2015 Chest pain 786.50 ; Hypertension 401.9 ; Hyperlipemia 272.4 and Obesity 278.00 [place] [id number] [place] [address] 15583- 7401 Apr, Generalized anxiety disorder 300.02 [place] [address] [address]- 2367 Apr, Generalized anxiety disorder 300.02 [facility] [id number] [place] [address] 68768- 0937 Apr, [facility] [address] [address]- 9941 Apr, [facility] [id number] [place] [address] 12295- 3307 Apr, Abdominal pain 789.00 ; Dehydration 276.51 ; Generalized anxiety disorder 300.02 ; Other and unspecified bipolar disorders 296.89 ; Obesity, unspecified 278.00 ; Family history of hypercholesterolemia V18.19 ; Diarrhea 787.91 ; Sleep apnea in adult 327.23 and Essential hypertension 401.9 [facility] [address] [address]- 0112 Mar, Generalized anxiety disorder 300.02 [facility] [address] [address]- 5673 February, [facility] [id number] [place] [address] 14913- 9208 Jan, [facility] [address] [address]- 8238 Jan, [facility] [address] [address]- 1877 Oct, [facility] [address] [address]- 4843 Oct, [facility] [address] [address]- 8999 Oct, [facility] [address] [address]- 8191 Oct, [facility] [address] [address]- 7976 Sep, [facility] [id number] [place] [address]- 7573 Sep, [facility] [place] [facility] [address] [id number] [place] 0862 Sep, [facility] [place] [facility] [address] [id number] [place] 0156 Sep, [facility] [place] [facility] [address] [id number] [place] [address]- 4169 Sep, [facility] [place] [facility] [address] [id number] [place] 8732 Sep, [facility] [place] [facility] [address] [id number] [place] [address]- 9462 Sep, [facility] [place] [facility] [address] [id number] [place] [address]- 9572 Aug, [facility] [place] [facility] [address] [id number] [place] [address]- 4383 Aug, [facility] [place] [facility] [address] [id number] [place] [address]- 3433 Aug, [facility] [place] [facility] [address] [id number] [place] [address]- 2980 Aug, [facility] [place] [facility] [address] [facility] [id number] [place] [address]- 8897 Jul, [facility] [place] [facility] [address] [id number] [place] [address]- 6103 Jul, [facility] [place] [facility] [address] [id number] [place] [address]- 0817 Jul, [facility] [place] [facility] [address] [id number] [place] [address]- 2487 Jul, [facility] [place] [facility] [address] [id number] [place] [address]- 2737 Jul, [facility] [place] [facility] [address] [id number] [place] [address]- 5147 Jul, [facility] [place] [facility] [address] [id number] [place] [address]- 5193 02 Jul, 2014 [facility] [place] [facility] [address] [id number] [place] [address]- 6939 02 Jul, 2013 [facility] [place] [facility] [address] [id number] [place] [address]- 4209 16 Jun, 2013 [facility] [place] [facility] [address] [id number] [place] [address]- 1183 16 Jun, 2013 [facility] [place] [facility] [address] [id number] [place] [address]- 6527 15 Jun, 2013 [facility] [place] [facility] [address] [id number] [place] [address]- 5400 15 Jun, 2013 [facility] [place] [facility] [address] [id number] [place] [address]- 6338 09 Jun, 2013 [facility] [place] [facility] [address] [id number] [address]- 6964 09 Jun, 2013 [facility] [place] [facility] [address] [id number] [place] [address]- 8418 04 Jun, 2013 [facility] [place] [facility] [address] [id number] [address]- 1976 04 Jun, 2013 [facility] [place] [facility] [address] [id number] [address]- 7960 02 Jun, 2013 [facility] [place] [facility] [address] [id number] [address]- 3814 02 Sep, 2013 [facility] [place] [facility] [address] [id number] [place] [address]- 0654 Sep, 2013 [facility] [place] [facility] [address] [id number] [place] [address]- 5771 Jun, 2013 [facility] [place] [facility] [address] [id number] [address]- 2357 Sep, 2013 [facility] [place] [facility] [address] [id number] [address]- 6122 Jun, [facility] [place] [facility] [address] [id number] [place] [address]- 1869 Jun, [facility] [place] [facility] [address] [id number] [place] [address]- 7714 Jun, [facility] [place] [facility] [address] [id number] [place] [address]- 9413 May, [facility] [place] [facility] [address] [id number] [place] [address]- 3837 May, [facility] [place] [facility] [address] [id number] [place] [address]- 6100 Apr, [facility] [place] [facility] [address] [id number] [place] [address]- 1121 Apr, [facility] [place] [facility] [address] [id number] [place] [address]- 5877 Apr, [facility] [place] [facility] [address] [id number] [place] [address]- 0311 Apr, [facility] [place] [facility] [address] [id number] [place] [address]- 0772 Apr, [facility] [place] [facility] [address] [id number] [place] [address]- 2305 Apr, [facility] [place] [facility] [address] [id number] [place] [address]- 5227 Apr, [facility] [place] [facility] [address] [id number] [place] [address]- 0601 Apr, [facility] [place] [facility] [address] [id number] [place] [address]- 0784 Apr, [facility] [place] [facility] [address] [id number] [place] [address]- 5868 Apr, [facility] [place] [facility] [address] [id number] [place] [address]- 0297 14 Apr, 2014 [facility] [place] [facility] [address] [id number] [place] [address]- 7113 Apr, 2013 [facility] [place] [facility] [address] [id number] [place] [address]- 5608 Apr, 2013 [facility] [place] [facility] [address] [id number] [place] [address]- 9181 Apr, 2013 [facility] [place] [facility] [address] [id number] [place] [address]- 6527 Apr, 2013 [facility] [place] [facility] [address] [id number] [place] [address]- 3847 Apr, 2013 [facility] [place] [facility] [address] [id number] [place] [address]- 4027 Apr, 2013 [facility] [place] [facility] [address] [id number] [place] [address]- 2587 Apr, 2013 [facility] [place] [facility] [address] [id number] [place] [address]- 6671 Apr, [facility] [place] [facility] [address] [id number] [place] [address]- 6646 Apr, [facility] [place] [facility] [address] [id number] [place] [address]- 3395 Mar, [facility] [place] [facility] [address] [id number] [place] [address]- 6209 Mar, [facility] [place] [facility] [address] [id number] [place] [address]- 9073 February, [facility] [place] [facility] [address] [id number] [place] [address]- 3763 February, [facility] [place] [facility] [address] [id number] [place] [address]- 6867 Jan, [facility] [place] [facility] [address] [id number] [place] [address]- 5506 Jan, [facility] [place] [facility] [address] [id number] [place] [address]- 7572 Jan, [facility] [place] [facility] [address] [id number] [place] [address]- 1082 Jan, [facility] [place] [facility] [address] [id number] [place] [address]- 8110 Dec, [facility] [place] [facility] [address] [id number] [place] [address]- 2851 Dec, [facility] [place] [facility] [address] [id number] [place] [address]- 5307 Oct, [facility] [place] [facility] [address] [id number] [place] [address]- 7612 Oct, [facility] [place] [facility] [address] [id number] [place] [address]- 3193 Oct, [facility] [place] [facility] [address] [id number] [place] [address]- 4299 Oct, [facility] [place] [facility] [address] [id number] [address]- 6309 Aug, [facility] [place] [facility] [address] [id number] [place] [address]- 2831 Aug, [facility] [place] [facility] [address] [id number] [place] [address]- 1405 Aug, [facility] [place] [facility] [address] [id number] [place] [address]- 0605 Aug, [facility] [place] [facility] [address] [id number] [address]- 9010 Jul, [facility] [place] [facility] [address] [id number] [place] [address]- 6083 Jul, [facility] [place] [facility] [address] [id number] [place] [address]- 6896 Jul, [facility] [place] [facility] [address] [id number] [place] [address]- 1626 Jun, [facility] [place] [facility] [address] [id number] [place] [address]- 5343 May, [facility] [address] [id number] [place] [address]- 4213 Apr, [facility] [address] [id number] [place] [address]- 9883 Apr, [facility] [address] [id number] [place] [address]- 3283 Apr, [facility] [place] [facility] [address] [id number] [place] [address]- 0494 Apr, [facility] [address] [id number] [place] [address]- 7630 Mar, [facility] [address] [id number] [place] [address]- 5353 Mar, [facility] [address] [id number] [place] [address]- 4985 Mar, [facility] [address] [id number] [place] [address]- 3511 Mar, [facility] [address] [id number] [place] [address]- 2617 February, [facility] [address] [id number] [place] [address]- 1264 February, [facility] [address] [id number] [place] [address]- 3613 February, [facility] [place] [facility] [address] [id number] [place] [address]- 2546 February, [facility] [place] [facility] [address] [id number] [place] [address]- 6700 February, [facility] [place] [facility] [address] [id number] [place] [address]- 2546 Jan, [facility] [place] [facility] [address] [id number] [place] [address]- 7635 Dec, [facility] [place] [facility] [address] [id number] [place] [address]- 1402 Nov, [facility] [address] [id number] [place] [address]- 1386 Nov, [facility] [address] [id number] [place] [address]- 6516 Nov, [facility] [address] [id number] [place] [address]- 0511 Oct, [facility] [address] [id number] [place] [address]- 7147 Oct, [facility] [address] [id number] [place] [address]- 9905 Oct, [facility] [address] [id number] [place] [address]- 8010 Oct, [facility] [address] [id number] [place] [address] Oct, [facility] [address] [id number] [place] [address] Oct, [facility] [address] [id number] [place] [address] Sep, [facility] [address] [id number] [place] [address] Sep, [facility] [address] [id number] [place] [address] Sep, [facility] [place] [facility] [address] [id number] [place] [address] Sep, [facility] [place] [facility] [address] [id number] [place] [address] Aug, [facility] [place] [facility] [address] [id number] [place] [address] Aug, [facility] [address] [id number] [place] [address] Aug, [facility] [place] [facility] [address] [id number] [place] [address] Aug, [facility] [place] [facility] [address] [id number] [place] [address] Aug, [facility] [place] [facility] [address] [id number] [place] [address] Aug, [facility] [place] [facility] [address] [id number] [place] [address] Jul, [facility] [place] [facility] [address] [id number] [place] [address] Jul, [facility] [place] [facility] [address] [id number] [place] [address] Jul, [facility] [place] [facility] [address] [id number] [place] [address] Jul, [facility] [place] [facility] [address] [id number] [place] [address] Jul, [facility] [place] [facility] [address] [id number] [place] [address] Jul, [facility] [place] [facility] [address] [facility] [id number] [place] [address] Jul, [facility] [place] [facility] [address] [id number] [place] [address] Jul, [facility] [place] [facility] [address] [id number] [place] [address] Jul, [facility] [place] [facility] [address] [id number] [place] [address] Jul, [facility] [place] [facility] [address] [facility] [id number] [place] [address] 26 Jun, 2012 [facility] [place] [facility] [address] [id number] [place] [address] 14 Jun, 2012 [facility] [place] [facility] [address] [id number] [place] [address] Jun, [facility] [place] [facility] [address] [id number] [place] [address] May, [facility] [place] [facility] [address] [id number] [place] [address] May, [facility] [place] [facility] [address] [id number] [place] [address] May, [facility] [place] [facility] [address] [id number] [place] [address] May, [facility] [place] [facility] [address] [id number] [place] [address] Apr, [facility] [place] [facility] [address] [id number] [place] [address] Apr, [facility] [place] [facility] [address] [id number] [place] [address] Apr, [facility] [place] [facility] [address] [id number] [place] [address] Apr, [facility] [place] [facility] [address] [id number] [place] [address] Mar, [facility] [place] [facility] [address] [id number] [place] [address] Mar, [facility] [place] [facility] [address] [id number] [place] [address] Mar, [facility] [place] [facility] [address] [id number] [place] [address] February, [facility] [place] [facility] [address] [id number] [place] [address] February, [facility] [place] [facility] [address] [id number] [place] [address] Jan, [facility] [place] [facility] [address] [id number] [place] [address] Jan, [facility] [place] [facility] [address] [id number] [place] [address] Jan, [facility] [place] [facility] [address] [id number] [place] [address] 29 Dec, 2011 [facility] [place] [facility] [address] [id number] [place] [address] 14 Dec, 2011 [facility] [place] [facility] [address] [id number] [place] [address] 14 Dec, 2011 [facility] [place] [facility] [address] [id number] [place] [address] Dec, [facility] [place] [facility] [address] [id number] [place] [address] 29 Nov, 2011 [facility] [place] [facility] [address] [id number] [place] [address] Nov, [facility] [place] [facility] [address] [id number] [place] [address] Nov, [facility] [place] [facility] [address] [id number] [place] [address] 16 Nov, 2011 [facility] [place] [facility] [address] [id number] [place] [address]- [address] Nov, [facility] [place] [facility] [address] [id number] [place] [address] Nov, [facility] [place] [facility] [address] [id number] [place] [address] Nov, [facility] [place] [facility] [address] [id number] [place] [address] Oct, [facility] [place] [facility] [address] [id number] [place] [address] Oct, [facility] [place] [facility] [address] [id number] [place] [address] Oct, [facility] [place] [facility] [address] [id number] [place] [address] 17 Oct, 2011 [facility] [address] [id number] [place] [address] Oct, [facility] [place] [facility] [address] [id number] [place] [address] Oct, [facility] [address] [id number] [place] [address] Oct, [facility] [place] [facility] [address] [id number] [place] [address] Oct, [facility] [address] [id number] [place] [address] Sep, [facility] [address] [id number] [place] [address] Sep, [facility] [address] [id number] [place] [address] Sep, [facility] [address] [id number] [place] [address] Sep, [facility] [place] [facility] [address] [id number] [place] [address] Aug, [facility] [address] [id number] [place] [address] Aug, [facility] [place] [facility] [address] [id number] [place] [address] Aug, [facility] [place] [facility] [address] [id number] [place] [address] Jul, [facility] [place] [facility] [address] [id number] [place] [address] Jul, [facility] [place] [facility] [address] [id number] [place] [address] Jul, [facility] [place] [facility] [address] [id number] [place] [address] Oct, [facility] [address] [facility] [id number] [address] Aug, [facility] [address] [id number] [address] Aug, [facility] [address] [facility] [id number] [place] [address] Sep, [facility] [address] [id number] [address] Sep, [facility] [address] [facility] [id number] [place] [address] Sep, [facility] [address] [id number] [address] Jan, IMMUNIZATIONS No Known Immunizations SOCIAL HISTORY [...]
--- OUTSIDE RECORDS SUMMARY | 2018-08-05 08:08 | XMS REPORT ---
Author Author MIGUELITO LEWIS Organization [facility] Address [address] [place] [address] Care Team Providers Care Sericulture Teacher Name Role Phone MIGUELITO LEWIS Unavailable PROBLEMS Type Condition ICD9-CM Code [id number] Code Onset Dates Condition Status SNOMED Code Problem Body mass index (BMI) of 40.0-44.9 in adult Z68.41 Active 018874359 Problem Chronic fatigue R53.82 Active 77126816 Problem Anal fissure K60.2 Active 66782381 Problem Rectal bleed K62.5 Active 33051262 Problem Hypertension I10 Active 45936852 Problem Sleep apnea in adult G47.33 Active 91493015 ALLERGIES No Information ENCOUNTERS Encounter Location Date Diagnosis [facility] [id number] [place] [address] 65160- 8389 Apr, [facility] [address] 59649- 0635 Mar, [place] [id number] [place] [address] 71356- 2275 Mar, [place] [id number] [place] [address] 67292- 0047 Mar, Generalized anxiety disorder 300.02 [facility] [id number] [place] [address] 17274- 9266 Mar, Acute serous otitis media of left ear, recurrence not specified H65.02 ; Dizziness R42 and BMI 40.0-44.9, adult Z68.41 [facility] [id number] [place] [address] 91975- 3740 February, Hypertension I10 [place] [address] 37683- 2367 February, Visit for TB skin test Z11.1 ; Encounter for physical examination related to employment Z02.1 ; Hypertension I10 ; Generalized anxiety disorder F41.1 ; BMI 40.0-44.9, adult Z68.41 and Chronic fatigue R53.82 [place] [id number] [place] [address] 05628- 0656 February, Rectal bleeding K62.5 and BMI 40.0-44.9, adult Z68.41 [place] [address] 23024- 5202 Jan, BMI 40.0-44.9, adult Z68.41 and Skin irritation R23.[address] 22273- 0379 Jan, Generalized anxiety disorder F41.1 [place] [address] 67756- 0501 Dec, [place] [address] 58270- 7562 Nov, Body mass index (BMI) of 40.0-44.9 in adult Z68.41 ; Hypertension I10 and Seasonal allergic rhinitis, unspecified trigger J30.2 [place] [id number] [place] [address] 11163- 7247 Nov, Hypertension I10 [place] [address] 81410- 8575 Nov, Generalized anxiety disorder 300.02 [place] [id number] [place] [address] 86067- 2514 Nov, [place] [address] 26941- 2600 Oct, [place] [id number] [place] [address] 06093- 8872 Oct, [place] [address] 92743- 4199 Oct, Acute chest wall pain R07.89 [facility] [id number] [place] [address] 20778- 3900 Oct, [facility] [id number] [place] [address] 04560- 3110 Sep, Left breast mass N63.20 [facility] [id number] [place] [address] 53564- 7967 Sep, Left breast mass N63.20 [facility] [id number] [place] [address] 25811- 1393 Aug, Hypertension I10 [place] [address] 06607- 3657 Aug, Generalized anxiety disorder 300.02 [place] [address] 50508- 5473 Jul, Generalized anxiety disorder 300.02 [facility] [id number] [place] [address] 64243- 5975 Jul, Sleep apnea in adult G47.33 [place] [id number] [place] [address] 77038- 9034 Jul, Hypertension I10 ; Sleep apnea in adult G47.33 ; Body mass index (BMI) of 40.0-44.9 in adult Z68.41 ; Morbid (severe) obesity due to excess calories E66.01 and Female hirsutism L68.0 [facility] [id number] [place] [address] 06768- 9292 Jul, Generalized anxiety disorder 300.02 [facility] [id number] [place] [address] 32899- 8600 Jul, Generalized anxiety disorder 300.02 [facility] [id number] [place] [address] 07347 -3824 Jun, Chronic fatigue R53.82 [facility] [address] 61871- 9745 Jun, Generalized anxiety disorder F41.1 [facility] [id number] [place] [address] 39264- 3542 May, Generalized anxiety disorder 300.02 [facility] [id number] [place] [address] 88179- 1304 Apr, Generalized anxiety disorder F41.1 ; Hypertension I10 ; Hyperlipidemia E78.5 ; Female hirsutism L68.0 and Sleep apnea in adult G47.33 [facility] [id number] [place] [address] 32695- 7710 Mar, Hypertension I10 and Generalized anxiety disorder F41.1 [place] [id number] [place] [address] 86592- 9755 Mar, [place] [id number] [place] [address] 19219- 5426 February, Hypertension I10 and Generalized anxiety disorder F41.1 [facility] [id number] [place] [address] 01364- 6868 February, Generalized anxiety disorder 300.02 [facility] [id number] [place] [address] 22669 -1401 February, Pelvic pain R10.2 and Painful bladder spasm R30.1 [place] [id number] [place] [address] 65442- 0523 Jan, Generalized anxiety disorder 300.02 [facility] [id number] [place] [address] 76375- 2079 Dec, Obesity, unspecified E66.9 ; Generalized anxiety disorder F41.1 and Hypertension I10 [place] [id number] [place] [address] 47983- 8053 15 Nov, 2016 Generalized anxiety disorder F41.1 ; Hypertension I10 ; Depression F32.9 and Obesity, unspecified E66.9 [facility] [id number] [place] [address] 56701- 7843 Nov, Generalized anxiety disorder 300.02 [facility] [address] [address]- 5081 Oct, [place] [id number] [place] [address] 22164- 6522 Sep, History of pneumonia Z87.01 ; Hypokalemia E87.6 ; Hypertension I10 and Encounter for immunization Z23 [place] [id number] [place] [address] 87526- 4610 Jul, [place] [id number] [place] [address] 64251- 7605 Apr, Hypertension I10 ; Hypercholesteremia E78.0 ; Obesity, unspecified E66.9 ; Anxiety F41.9 and Lumbago M54.5 [place] [id number] [place] [address] 50946- 2683 Apr, Depression F32.9 [place] [id number] [place] [address] 82792- 0206 Mar, Essential (primary) hypertension I10 [facility] [address] [id number] [place] [address] Jan [place] [id number] [place] [address] 16068- 3588 Dec, [place] [id number] [place] [address] 49129- 7359 Dec, Generalized anxiety disorder F41.1 and Hypertension I10 [facility] [address] [address]- 6788 Dec, [place] [id number] [place] [address] 65062- 5602 Dec, Abdominal pain R10.9 [place] [id number] [place] [address] 80485- 5171 15 Dec, 2015 Left sided abdominal pain of unknown cause R10.30 [place] [id number] [place] [address] 26772- 4827 Nov, Generalized anxiety disorder 300.02 [place] [id number] [place] [address] 82319- 3576 Nov, Female hirsutism L68.0 ; Hypertension I10 ; Hyperlipidemia E78.5 ; Depression F32.9 and Anxiety F41.9 [place] [id number] [place] [address] 22187- 2633 Oct, [place] [id number] [place] [address] 68391- 3980 Oct, [place] [id number] [place] [address] 54893- 2942 Oct, [place] [id number] [place] [address] 80702- 4749 Oct, [place] [id number] [place] [address] 65324- 3471 Oct, Well woman exam Z01.419 ; Encounter [...] unspecified obesity severity, unspecified obesity type E66.9 [place] [id number] [place] [address] 05208- 3019 Jun, Generalized anxiety disorder 300.02 [place] [id number] [place] [address] 20197- 8364 04 Jun, 2015 Chest pain 786.50 ; Hypertension 401.9 ; Hyperlipemia 272.4 and Obesity 278.00 [place] [id number] [place] [address] 05926- 7055 Apr, Generalized anxiety disorder 300.02 [place] [address] [address]- 9815 Apr, Generalized anxiety disorder 300.02 [facility] [id number] [place] [address] 05738- 1145 Apr, [facility] [address] [address]- 7449 Apr, [facility] [id number] [place] [address] 56506- 9008 Apr, Abdominal pain 789.00 ; Dehydration 276.51 ; Generalized anxiety disorder 300.02 ; Other and unspecified bipolar disorders 296.89 ; Obesity, unspecified 278.00 ; Family history of hypercholesterolemia V18.19 ; Diarrhea 787.91 ; Sleep apnea in adult 327.23 and Essential hypertension 401.9 [facility] [address] [address]- 9143 Mar, Generalized anxiety disorder 300.02 [facility] [address] [address]- 6920 February, [facility] [id number] [place] [address] 96588- 9485 Jan, [facility] [address] [address]- 8959 Jan, [facility] [address] [address]- 9514 Oct, [facility] [address] [address]- 3335 Oct, [facility] [address] [address]- 1459 Oct, [facility] [address] [address]- 5207 Oct, [facility] [address] [address]- 4549 Sep, [facility] [id number] [place] [address]- 1090 Sep, [facility] [place] [facility] [address] [id number] [place] 1635 Sep, [facility] [place] [facility] [address] [id number] [place] 6696 Sep, [facility] [place] [facility] [address] [id number] [place] [address]- 9488 Sep, [facility] [place] [facility] [address] [id number] [place] 6581 Sep, [facility] [place] [facility] [address] [id number] [place] [address]- 9751 Sep, [facility] [place] [facility] [address] [id number] [place] [address]- 3599 Aug, [facility] [place] [facility] [address] [id number] [place] [address]- 0215 Aug, [facility] [place] [facility] [address] [id number] [place] [address]- 4356 Aug, [facility] [place] [facility] [address] [id number] [place] [address]- 6758 Aug, [facility] [place] [facility] [address] [facility] [id number] [place] [address]- 2042 Jul, [facility] [place] [facility] [address] [id number] [place] [address]- 1995 Jul, [facility] [place] [facility] [address] [id number] [place] [address]- 1462 Jul, [facility] [place] [facility] [address] [id number] [place] [address]- 5022 Jul, [facility] [place] [facility] [address] [id number] [place] [address]- 2106 Jul, [facility] [place] [facility] [address] [id number] [place] [address]- 4445 Jul, [facility] [place] [facility] [address] [id number] [place] [address]- 3899 02 Jul, 2014 [facility] [place] [facility] [address] [id number] [place] [address]- 2881 02 Jul, 2013 [facility] [place] [facility] [address] [id number] [place] [address]- 5551 16 Jun, 2013 [facility] [place] [facility] [address] [id number] [place] [address]- 1689 16 Jun, 2013 [facility] [place] [facility] [address] [id number] [place] [address]- 3727 15 Jun, 2013 [facility] [place] [facility] [address] [id number] [place] [address]- 9575 15 Jun, 2013 [facility] [place] [facility] [address] [id number] [place] [address]- 9130 09 Jun, 2013 [facility] [place] [facility] [address] [id number] [address]- 7234 09 Jun, 2013 [facility] [place] [facility] [address] [id number] [place] [address]- 3426 04 Jun, 2013 [facility] [place] [facility] [address] [id number] [place] [address]- 9439 04 Jun, 2013 [facility] [place] [facility] [address] [id number] [place] [address]- 1307 02 Jun, 2013 [facility] [place] [facility] [address] [id number] [place] [address]- 5836 02 Sep, 2013 [facility] [place] [facility] [address] [id number] [place] [address]- 6006 Sep, 2013 [facility] [place] [facility] [address] [id number] [place] [address]- 5361 Jun, 2013 [facility] [place] [facility] [address] [id number] [place] [address]- 4395 Sep, 2013 [facility] [place] [facility] [address] [id number] [place] [address]- 2050 Jun, [facility] [place] [facility] [address] [id number] [place] [address]- 3436 Jun, [facility] [place] [facility] [address] [id number] [place] [address]- 2223 Jun, [facility] [place] [facility] [address] [id number] [place] [address]- 8393 May, [facility] [place] [facility] [address] [id number] [place] [address]- 9197 May, [facility] [place] [facility] [address] [id number] [place] [address]- 2502 Apr, [facility] [place] [facility] [address] [id number] [place] [address]- 6887 Apr, [facility] [place] [facility] [address] [id number] [place] [address]- 4341 Apr, [facility] [place] [facility] [address] [id number] [place] [address]- 4572 Apr, [facility] [place] [facility] [address] [id number] [place] [address]- 3882 Apr, [facility] [place] [facility] [address] [id number] [place] [address]- 8121 Apr, [facility] [place] [facility] [address] [id number] [place] [address]- 0714 Apr, [facility] [place] [facility] [address] [id number] [place] [address]- 5284 Apr, [facility] [place] [facility] [address] [id number] [place] [address]- 3040 Apr, [facility] [place] [facility] [address] [id number] [place] [address]- 8177 Apr, [facility] [place] [facility] [address] [id number] [place] [address]- 1043 14 Apr, 2014 [facility] [place] [facility] [address] [id number] [place] [address]- 2875 Apr, 2013 [facility] [place] [facility] [address] [id number] [place] [address]- 4246 Apr, 2013 [facility] [place] [facility] [address] [id number] [place] [address]- 1658 Apr, 2013 [facility] [place] [facility] [address] [id number] [place] [address]- 8877 Apr, 2013 [facility] [place] [facility] [address] [id number] [place] [address]- 9721 Apr, 2013 [facility] [place] [facility] [address] [id number] [place] [address]- 3017 Apr, 2013 [facility] [place] [facility] [address] [id number] [place] [address]- 8589 Apr, 2013 [facility] [place] [facility] [address] [id number] [place] [address]- 1146 Apr, [facility] [place] [facility] [address] [id number] [place] [address]- 1471 Apr, [facility] [place] [facility] [address] [id number] [place] [address]- 1072 Mar, [facility] [place] [facility] [address] [id number] [place] [address]- 4887 Mar, [facility] [place] [facility] [address] [id number] [place] [address]- 3456 February, [facility] [place] [facility] [address] [id number] [place] [address]- 7129 February, [facility] [place] [facility] [address] [id number] [place] [address]- 8538 Jan, [facility] [place] [facility] [address] [id number] [place] [address]- 5506 Jan, [facility] [place] [facility] [address] [id number] [place] [address]- 3662 Jan, [facility] [place] [facility] [address] [id number] [place] [address]- 1011 Jan, [facility] [place] [facility] [address] [id number] [place] [address]- 5819 Dec, [facility] [place] [facility] [address] [id number] [place] [address]- 2554 Dec, [facility] [place] [facility] [address] [id number] [place] [address]- 9706 Oct, [facility] [place] [facility] [address] [id number] [place] [address]- 2737 Oct, [facility] [place] [facility] [address] [id number] [place] [address]- 7319 Oct, [facility] [place] [facility] [address] [id number] [place] [address]- 0473 Oct, [facility] [place] [facility] [address] [id number] [place] [address]- 0877 Aug, [facility] [place] [facility] [address] [id number] [place] [address]- 8736 Aug, [facility] [place] [facility] [address] [id number] [place] [address]- 8867 Aug, [facility] [place] [facility] [address] [id number] [place] [address]- 3231 Aug, [facility] [place] [facility] [address] [id number] [place] [address]- 0243 Jul, [facility] [place] [facility] [address] [id number] [place] [address]- 0424 Jul, [facility] [place] [facility] [address] [id number] [place] [address]- 8113 Jul, [facility] [place] [facility] [address] [id number] [place] [address]- 8045 Jun, [facility] [place] [facility] [address] [id number] [place] [address]- 9443 May, [facility] [address] [id number] [place] [address]- 1268 Apr, [facility] [address] [id number] [place] [address]- 4438 Apr, [facility] [address] [id number] [place] [address]- 5766 Apr, [facility] [place] [facility] [address] [id number] [place] [address]- 1790 Apr, [facility] [address] [id number] [place] [address]- 6499 Mar, [facility] [address] [id number] [place] [address]- 5261 Mar, [facility] [address] [id number] [place] [address]- 3645 Mar, [facility] [address] [id number] [place] [address]- 5515 Mar, [facility] [address] [id number] [place] [address]- 2475 February, [facility] [address] [id number] [place] [address]- 3937 February, [facility] [address] [id number] [place] [address]- 6559 February, [facility] [place] [facility] [address] [id number] [place] [address]- 2546 February, [facility] [place] [facility] [address] [id number] [place] [address]- 8258 February, [facility] [place] [facility] [address] [id number] [place] [address]- 2546 Jan, [facility] [place] [facility] [address] [id number] [place] [address]- 3353 Dec, [facility] [place] [facility] [address] [id number] [place] [address]- 6508 Nov, [facility] [address] [id number] [place] [address]- 5646 Nov, [facility] [address] [id number] [place] [address]- 9498 Nov, [facility] [address] [id number] [place] [address] Oct, [facility] [address] [id number] [place] [address] Oct, [facility] [address] [id number] [place] [address] Oct, [facility] [address] [id number] [place] [address] Oct, [facility] [address] [id number] [place] [address] Oct, [facility] [address] [id number] [place] [address] Oct, [facility] [address] [id number] [place] [address] Sep, [facility] [address] [id number] [place] [address] Sep, [facility] [address] [id number] [place] [address] Sep, [facility] [place] [facility] [address] [id number] [place] [address] Sep, [facility] [place] [facility] [address] [id number] [place] [address] Aug, [facility] [place] [facility] [address] [id number] [place] [address] Aug, [facility] [address] [id number] [place] [address] Aug, [facility] [place] [facility] [address] [id number] [place] [address] Aug, [facility] [place] [facility] [address] [id number] [place] [address]- [address] Aug, [facility] [place] [facility] [address] [id number] [place] [address] Aug, [facility] [place] [facility] [address] [id number] [place] [address] Jul, [facility] [place] [facility] [address] [id number] [place] [address] Jul, [facility] [place] [facility] [address] [id number] [place] [address] Jul, [facility] [place] [facility] [address] [id number] [place] [address] Jul, [facility] [place] [facility] [address] [id number] [place] [address] Jul, [facility] [place] [facility] [address] [id number] [place] [address] Jul, [facility] [place] [facility] [address] [facility] [id number] [place] [address] Jul, [facility] [place] [facility] [address] [id number] [place] [address] Jul, [facility] [place] [facility] [address] [id number] [place] [address] Jul, [facility] [place] [facility] [address] [id number] [place] [address] Jul, [facility] [place] [facility] [address] [facility] [id number] [place] [address] 26 Jun, 2012 [facility] [place] [facility] [address] [id number] [place] [address] 14 Jun, 2012 [facility] [place] [facility] [address] [id number] [place] [address] Jun, [facility] [place] [facility] [address] [id number] [place] [address] May, [facility] [place] [facility] [address] [id number] [place] [address] May, [facility] [place] [facility] [address] [id number] [place] [address] May, [facility] [place] [facility] [address] [id number] [place] [address] May, [facility] [place] [facility] [address] [id number] [place] [address] Apr, [facility] [place] [facility] [address] [id number] [place] [address] Apr, [facility] [place] [facility] [address] [id number] [place] [address] Apr, [facility] [place] [facility] [address] [id number] [place] [address] Apr, [facility] [place] [facility] [address] [id number] [place] [address] Mar, [facility] [place] [facility] [address] [id number] [place] [address] Mar, [facility] [place] [facility] [address] [id number] [place] [address] Mar, [facility] [place] [facility] [address] [id number] [place] [address] February, [facility] [place] [facility] [address] [id number] [place] [address] February, [facility] [place] [facility] [address] [id number] [place] [address] Jan, [facility] [place] [facility] [address] [id number] [place] [address] Jan, [facility] [place] [facility] [address] [id number] [place] [address]- [address] Jan, [facility] [place] [facility] [address] [id number] [place] [address] 29 Dec, 2011 [facility] [place] [facility] [address] [id number] [place] [address]- [address] 14 Dec, 2011 [facility] [place] [facility] [address] [id number] [place] [address]- [address] 14 Dec, 2011 [facility] [place] [facility] [address] [id number] [place] [address]- [address] Dec, [facility] [place] [facility] [address] [id number] [place] [address] 29 Nov, 2011 [facility] [place] [facility] [address] [id number] [place] [address] Nov, [facility] [place] [facility] [address] [id number] [place] [address] Nov, [facility] [place] [facility] [address] [id number] [place] [address] 16 Nov, 2011 [facility] [place] [facility] [address] [id number] [place] [address] Nov, [facility] [place] [facility] [address] [id number] [place] [address] Nov, [facility] [place] [facility] [address] [id number] [place] [address] Nov, [facility] [place] [facility] [address] [id number] [place] [address] Oct, [facility] [place] [facility] [address] [id number] [place] [address] Oct, [facility] [place] [facility] [address] [id number] [place] [address] Oct, [facility] [place] [facility] [address] [id number] [place] [address] 17 Oct, 2011 [facility] [address] [id number] [place] [address] Oct, [facility] [place] [facility] [address] [id number] [place] [address] Oct, [facility] [address] [id number] [place] [address] Oct, [facility] [place] [facility] [address] [id number] [place] [address] Oct, [facility] [address] [id number] [place] [address] Sep, [facility] [address] [id number] [place] [address] Sep, [facility] [address] [id number] [place] [address] Sep, [facility] [address] [id number] [place] [address] Sep, [facility] [place] [facility] [address] [id number] [place] [address] Aug, [facility] [address] [id number] [place] [address] Aug, [facility] [place] [facility] [address] [id number] [place] [address] Aug, [facility] [place] [facility] [address] [id number] [place] [address] Jul, [facility] [place] [facility] [address] [id number] [place] [address] Jul, [facility] [place] [facility] [address] [id number] [place] [address] Jul, [facility] [place] [facility] [address] [id number] [place] [address] Oct, [facility] [address] [facility] [id number] [place] [address] Aug, [facility] [address] [facility] [id number] [place] [address] Aug, [facility] [address] [facility] [id number] [place] [address] Sep, [facility] [address] [facility] [id number] [place] [address] Sep, [facility] [address] [facility] [id number] [place] [address] Sep, [facility] [address] [facility] [id number] [place] [address] Jan, IMMUNIZATIONS No Known Immunizations SOCIAL HISTORY Never Assessed REASON FOR VISIT Lab (walk-in) PLAN OF CARE VITAL SIGNS MEDICATIONS Unknown Medications RESULTS No Results PROCEDURES Procedure Date Ordered Result Body Site COMPREHEN METABOLIC PANEL Nov 15, 2017 LIPID PANEL Nov 15, 2017 INSTRUCTIONS MEDICATIONS ADMINISTERED No Known Medications [...]
--- OUTSIDE RECORDS SUMMARY | 2018-08-05 08:14 | XMS REPORT | Continuity of Care Document ---
Author Author [facility] Address Unknown Phone Unavailable Allergies Active Description Code Type Severity Reaction Onset Reported/Identified Relationship to Patient Clinical Status Yes amoxicillin Drug Allergy 02/04/2009 Yes amoxicillin Drug Allergy N/A N/A 02/04/2009 Yes No Known Drug Allergies [id number] Drug Allergy Unknown N/A 10/30/2011 Yes amoxicillin [id number] Drug Allergy Unknown N/A 05/01/2015 Yes amoxicillin [id number] Drug Allergy Severe RASH/BREATHING 07/11/2018 Medications There is no data. Problems Date Dx Coded Attending Type Code Diagnosis Diagnosed By 06/19/2008 OSVALDO RODRIGUEZ PSYD V70.5 PREEMPLOYMENT/PRESCHOOL EXAM 06/19/2008 TAVON RILEY APRN V70.5 Preemployment/preschool Exam 06/19/2008 ELDA SANCHEZ DO V70.5 Preemployment/preschool Exam 06/19/2008 OSVALDO RODRIGUEZ PSYD V70.5 Preemployment/preschool Exam 06/19/2008 ELDA SANCHEZ DO V70.5 Preemployment/preschool Exam 06/19/2008 OSVALDO RODRIGUEZ PSYD V70.5 Preemployment/preschool Exam 06/19/2008 V70.5 Preemployment/ preschool Exam 06/19/2008 V70.5 Preemployment/ preschool Exam 06/19/2008 V70.5 Preemployment/ preschool Exam 06/19/2008 V70.5 Preemployment/ preschool Exam 06/19/2008 ELDA SANCHEZ DO K V70.5 Preemployment/preschool Exam 06/19/2008 ELDA SANCHEZ DO V70.5 Preemployment/preschool Exam 06/19/2008 ELDA SANCHEZ DO V70.5 Preemployment/preschool Exam 06/19/2008 ROD WU APRN A V70.5 Preemployment/preschool Exam 06/19/2008 OSVALDO RODRIGUEZ PSYD L V70.5 Preemployment/preschool Exam 06/19/2008 SANCHEZ DO ELDA K V70.5 Preemployment/preschool Exam 06/19/2008 OSVALDO RODRIGUEZ PSYD V70.5 Preemployment/preschool Exam 06/19/2008 OSVALDO RODRIGUEZ PSYD L V70.5 Preemployment/preschool Exam 06/19/2008 SANCHEZ DO ELDA K V70.5 Preemployment/preschool Exam 06/19/2008 OSVALDO RODRIGUEZ PSYD V70.5 Preemployment/preschool Exam 06/19/2008 OSVALDO RODRIGUEZ PSYD V70.5 Preemployment/preschool Exam 06/19/2008 SANCHEZ DO, ELDA K V70.5 Preemployment/preschool Exam 06/19/2008 SANCHEZ DO ELDA K V70.5 Preemployment/preschool Exam 06/19/2008 SANCHEZ DO, ELDA K V70.5 Preemployment/preschool Exam 06/19/2008 SANCHEZ DO ELDA K V70.5 Preemployment/preschool Exam 06/19/2008 OSVALDO RODRIGUEZ PSYD L V70.5 Preemployment/preschool Exam 06/19/2008 SANCHEZ DO, ELDA K V70.5 Preemployment/preschool Exam 06/19/2008 SANCHEZ DO ELDA K V70.5 Preemployment/preschool Exam 06/19/2008 OSVALDO RODRIGUEZ PSYD L V70.5 Preemployment/preschool Exam 06/19/2008 SANCHEZ DO ELDA K V70.5 Preemployment/preschool Exam 09/29/2008 OSVALDO RODRIGUEZ PSYD 300.4 MO DYSTHYMIC DIS 09/29/2008 TAVON RILEY [...] ELDA K 300.4 MO DYSTHYMIC DIS 09/29/2008 JAZMINROD DOMINGUEZ APRN 300.4 MO DYSTHYMIC DIS 09/29/2008 OSVALDO RODRIGUEZ [...] DO, ELDA K 300.4 MO DYSTHYMIC DIS 02/04/2009 OSVALDO RODRIGUEZ PSYD V72.31 Pelvic Exam (internal) 02/04/2009 TAVON RILEY APRN V72.31 Pelvic Exam (internal) 02/04/2009 SANCHEZ DO ELDA K V72.31 Pelvic Exam (internal) 02/04/2009 OSVALDO RODRIGUEZ PSYD L V72.31 Pelvic Exam (internal) 02/04/2009 SANCHEZ DO ELDA K V72.31 Pelvic Exam (internal) 02/04/2009 OSVALDO RODRIGUEZ PSYD L V72.31 Pelvic Exam (internal) 02/04/2009 V72.31 Pelvic Exam ( internal) 02/04/2009 V72.31 Pelvic Exam ( internal) 02/04/2009 V72.31 Pelvic Exam ( internal) 02/04/2009 V72.31 Pelvic Exam ( internal) 02/04/2009 SANCHEZ DO, ELDA K V72.31 Pelvic Exam (internal) 02/04/2009 SANHCEZ DO ELDA K V72.31 Pelvic Exam (internal) 02/04/2009 SANCHEZ DO, ELDA K V72.31 Pelvic Exam (internal) 02/04/2009 ROD WU APRN V72.31 Pelvic Exam (internal) 02/04/2009 OSVALDO RODRIGUEZ PSYD L V72.31 Pelvic Exam (internal) 02/04/2009 SANCHEZ DO, ELDA K V72.31 Pelvic Exam (internal) 02/04/2009 OSVALDO RODRIGUEZ PSYD L V72.31 Pelvic Exam (internal) 02/04/2009 OSVALDO RODRIGUEZ PSYD L V72.31 Pelvic Exam (internal) 02/04/2009 SANCHEZ DO ELDA K V72.31 Pelvic Exam (internal) 02/04/2009 OSVALDO RODRIGUEZ PSYD L V72.31 Pelvic Exam (internal) 02/04/2009 OSVALDO RODRIGUEZ PSYD L V72.31 Pelvic Exam (internal) 02/04/2009 SANCHEZ DO ELDA K V72.31 Pelvic Exam (internal) 02/04/2009 SANCHEZ DO ELDA K V72.31 Pelvic Exam (internal) 02/04/2009 SANCHEZ DO ELDA K V72.31 Pelvic Exam (internal) 02/04/2009 SANCHEZ DO, ELDA K V72.31 Pelvic Exam (internal) 02/04/2009 OSVALDO RODRIGUEZ PSYD V72.31 Pelvic Exam (internal) 02/04/2009 SANCHEZ DO, ELDA K V72.31 Pelvic Exam (internal) 02/04/2009 SANCHEZ DO, ELDA K V72.31 Pelvic Exam (internal) 02/04/2009 OSVALDO RODRIGUEZ PSYD V72.31 Pelvic Exam (internal) 02/04/2009 SANCHEZ DO, ELDA K V72.31 Pelvic Exam (internal) 09/20/2009 OSVALDO RODRIGUEZ PSYD L 278.00 OBESITY, UNSPECIFIED 09/20/2009 OSVALDO RODRIGUEZ PSYD L 307.40 INSOMNIA 09/20/2009 OSVALDO RODRIGUEZ PSYD L 709.9 Skin Lesions 09/20/2009 LUIS FERNANDO RILEY APRNA S 278.00 Obesity, Unspecified 09/20/2009 TAVON RILEY APRN S 307.40 Insomnia 09/20/2009 LUIS FERNANDO RILEY APRNA S 709.9 Skin Lesions 09/20/2009 SANCHEZ DO, ELDA K 278.00 Obesity, Unspecified 09/20/2009 SANCHEZ DO, ELDA K 307.40 Insomnia 09/20/2009 SANCHEZ DO, ELDA K 709.9 Skin Lesions 09/20/2009 OSVALDO RODRIGUEZ PSYD L 278.00 Obesity, Unspecified 09/20/2009 OSVALDO RODRIGUEZ PSYD L 307.40 Insomnia 09/20/2009 OSVALDO RODRIGUEZ PSYD L 709.9 Skin Lesions 09/20/2009 SANCHEZ DO, [...] DO, ELDA K 709.9 Skin Lesions 09/20/2009 JAZMINANGELICA INGRAM, ROD A 278.00 Obesity, Unspecified 09/20/2009 JAZMIN FLUME WORKER, ROD A 307.40 Insomnia 09/20/2009 JAZMIN FLUME WORKER, ROD A 709.9 Skin Lesions 09/20/2009 OSVALDO [...] PSYD ANN L 709.9 Skin Lesions 09/20/2009 OSVALDO RODRIGUEZ PSYD ANN L 278.00 Obesity, Unspecified 09/20/2009 MICHAEL DORAN, JEREMIAS L 307.40 Insomnia 09/20/2009 OSVALDO RODRIGUEZ PSYD ANN L 709.9 Skin Lesions 09/20/2009 SANCHEZ DO, ELDA K 278.00 Obesity, Unspecified 09/20/2009 SANCHEZ DO, ELDA K 307.40 Insomnia 09/20/2009 SANCHEZ DO, ELDA K 709.9 Skin Lesions 09/20/2009 OSVALDO RODRIGUEZ PSYD ANN L 278.00 Obesity, Unspecified 09/20/2009 MICHAEL DORAN, JEREMIAS L 307.40 Insomnia 09/20/2009 OSVALDO RODRIGUEZ PSYD ANN L 709.9 Skin Lesions 09/20/2009 OSVALDO RODRIGUEZ PSYD ANN L 278.00 Obesity, Unspecified 09/20/2009 MCCOSVALDO GOTTLIEB PSYD ANN L 307.40 Insomnia 09/20/2009 OSVALDO [...] ELDA K 709.9 Skin Lesions 09/20/2009 MCCLEEARY ABBEYYDOSVALDOJEREMIAS L 278.00 Obesity, Unspecified 09/20/2009 MCCLEEARY OSVALDO DORAN ANN L 307.40 Insomnia 09/20/2009 MCCOSVALDO GOTTLIEB PSYD ANN L 709.9 Skin Lesions 09/20/2009 [...] PSYD ANN L 462 Sore Throat 11/15/2009 OSVALDO FLUME WORKER, TAVON S 380.10 Otitis Externa - Both Ears 11/15/2009 OSVALDO FLUME WORKER, TAVON S 388.70 Earache Both Ears 11/15/2009 OSVALDO FLUME WORKER, TAVON S 462 Sore Throat 11/15/2009 SANCHEZ [...] ELDA K 462 Sore Throat 11/15/2009 JAZMIN FLUME WORKER, ROD A 380.10 Otitis Externa - Both Ears 11/15/2009 JAZMIN FLUME WORKER, ROD A 388.70 Earache Both Ears 11/15/2009 JAZMIN FLUME WORKER, ROD A 462 Sore Throat 11/15/2009 OSVALDO [...] PSYD ANN L 462 Sore Throat 11/15/2009 OSVALDO RODRIGUEZ PSYD ANN L 380.10 Otitis Externa - Both Ears 11/15/2009 OSVALDO RODRIGUEZ PSYD ANN L 388.70 Earache Both Ears 11/15/2009 OSVALDO RODRIGUEZ PSYD ANN L 462 Sore Throat 11/15/2009 SANCHEZ DO, ELDA K 380.10 Otitis Externa - Both Ears 11/15/2009 SANCHEZ DO ELDA K 388.70 Earache Both Ears 11/15/2009 SANCHEZ DO, ELDA K 462 Sore Throat 11/15/2009 OSVALDO RODRIGUEZ PSYD ANN L 380.10 Otitis Externa - Both Ears 11/15/2009 OSVALDO RODRIGUEZ PSYD ANN L 388.70 Earache Both Ears 11/15/2009 OSVALDO RODRIGUEZ PSYD ANN L 462 Sore Throat 11/15/2009 OSVALDO RODRIGUEZ PSYD [...] L 296.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 03/28/2010 OSVALDO RDORIGUEZ PSYD ANN L 780.99 Loss Of Pleasure From Usual Activities (anhedonia) 03/28/2010 TAVON RILEY APRN S 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 03/28/2010 TAVON RILEY APRN S 780.99 Loss Of Pleasure From Usual Activities (anhedonia) 03/28/2010 SANCHEZ DO ELDA K 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 03/28/2010 SANCHZE DO ELDA K 780.99 Loss Of Pleasure From Usual Activities (anhedonia) 03/28/2010 OSVALDO RODRIGUEZ PSYD ANN L 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 03/28/2010 OSVALDO RODRIGUEZ PSYD ANN L 780.99 Loss Of Pleasure From Usual Activities (anhedonia) 03/28/2010 SANCHEZ DO ELDA K 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 03/28/2010 LAURA EMERY ELDA K 780.99 Loss Of Pleasure From [...] Of Pleasure From Usual Activities (anhedonia) 03/28/2010 LAURA EMERY ELDA K 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 03/28/2010 SANCHEZ DO ELDA K 780.99 Loss Of Pleasure From Usual Activities (anhedonia) 03/28/2010 LAURA EMERY ELDA K 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 03/28/2010 LAURA EMERY ELDA K 780.99 Loss Of Pleasure From Usual Activities (anhedonia) 03/28/2010 SANCHEZ DO ELDA K 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 03/28/2010 SANCHEZ DO ELDA K 780.99 Loss Of Pleasure From Usual Activities (anhedonia) 03/28/2010 JAZMIN FLUME WORKER ROD A 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 03/28/2010 JAZMIN FLUME WORKER ROD A 780.99 Loss Of Pleasure From [...] ANN L 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 03/28/2010 MICHAEL DORAN JEREMIAS L 780.99 Loss Of Pleasure From Usual Activities (anhedonia) 03/28/2010 OSVALDO RODRIGUEZ PSYD ANN L 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 03/28/2010 MICHAEL DORAN, JEREMIAS L 780.99 Loss Of Pleasure From [...] ANN L 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 03/28/2010 MICHAEL DORAN JEREMIAS L 780.99 Loss Of Pleasure [...] PSYD L 780.79 Malaise And Fatigue 10/24/2010 VINCENT RILEY APRNNDA S 401.1 HYPERTENSION, BENIGN ESSENTIAL 10/24/2010 OSVALDO INGRAM TAVON S 780.79 Malaise And Fatigue 10/24/2010 JESUS SANCHEZ DOA K 401.1 HYPERTENSION, BENIGN ESSENTIAL 10/24/2010 JESUS SANCHEZ DOA K 780.79 Malaise And Fatigue 10/24/2010 OSVALDO RODRIGUEZ PSYD L 401.1 HYPERTENSION, BENIGN ESSENTIAL 10/24/2010 OSVALDO RODRIGUEZ PSYD L 780.79 Malaise And Fatigue 10/24/2010 ELDA SANCHEZ DO K 401.1 HYPERTENSION, BENIGN ESSENTIAL 10/24/2010 JESUS SANCHEZ DOA K 780.79 Malaise And Fatigue 10/24/2010 OSVALDO [...] K 780.79 Malaise And Fatigue 10/24/2010 JAZMIN FLUME WORKER, ROD A 401.1 HYPERTENSION, BENIGN ESSENTIAL 10/24/2010 JAZMIN FLUME WORKER, ROD A 780.79 Malaise And Fatigue 10/24/2010 OSVALDO RODRIGUEZ PSYD ANN L 401.1 HYPERTENSION, BENIGN ESSENTIAL 10/24/2010 OSVALDO RODRIGUEZ PSYD ANN L 780.79 Malaise And Fatigue 10/24/2010 SANCHEZ DO ELDA K 401.1 HYPERTENSION, BENIGN ESSENTIAL 10/24/2010 SANCHEZ DO, ELDA K 780.79 Malaise And Fatigue 10/24/2010 OSVALDO RODRIGUEZ PSYD ANN L 401.1 HYPERTENSION, BENIGN ESSENTIAL 10/24/2010 OSVALDO RODRIGUEZ PSYD ANN L 780.79 Malaise And Fatigue 10/24/2010 OSVALDO RODRIGUEZ PSYD ANN L 401.1 HYPERTENSION, BENIGN ESSENTIAL 10/24/2010 OSVALDO RODRIGUEZ PSYD ANN L 780.79 Malaise And Fatigue 10/24/2010 SANCHEZ DO ELDA K 401.1 HYPERTENSION, BENIGN ESSENTIAL 10/24/2010 SANCHEZ DO, ELDA K 780.79 Malaise And Fatigue 10/24/2010 OSVALDO RODRIGUEZ PSYD ANN L 401.1 HYPERTENSION, BENIGN ESSENTIAL 10/24/2010 OSVALDO RODRIGUEZ PSYD ANN L 780.79 Malaise And Fatigue 10/24/2010 MICHAEL [...] Conditions Of Skin 11/07/2010 ROD WU APRN A 701.9 Unspecified Hypertrophic And Atrophic Conditions Of Skin 11/07/2010 OSVALDO RODRIGUEZ PSYD ANN L 701.9 Unspecified Hypertrophic And Atrophic Conditions Of Skin 11/07/2010 SANCHEZ DO ELDA K 701.9 Unspecified Hypertrophic And Atrophic Conditions Of Skin 11/07/2010 OSVALDO RDORIGUEZ PSYD ANN L 701.9 Unspecified Hypertrophic And [...] L 465.9 Upper Respiratory Infection 02/12/2011 OSVALDO CHRISTENSENHollie TAVON S 465.9 Upper Respiratory Infection 02/12/2011 SANCHEZ [...] ELDA K 465.9 Upper Respiratory Infection 02/12/2011 JAZMINANGELICA CHRISTENSENN, ROD A 465.9 Upper Respiratory Infection 02/12/2011 [...] ANN L 465.9 Upper Respiratory Infection 02/12/2011 ELDA SANCHEZ DO 465.9 Upper Respiratory Infection 02/12/2011 ELDA SANCHEZ DO K 465.9 Upper Respiratory Infection 02/12/2011 OSVALDO RODRIGUEZ PSYD 465.9 Upper Respiratory Infection 02/12/2011 ELDA SANCHEZ DO K 465.9 Upper Respiratory Infection 08/28/2011 OSVALDO RODRIGUEZ [...] Use Of Other Medications 10/01/2011 SANCHEZ DO ELAD K V58.69 Long-term (current) Use Of Other [...] AN GEN ANXIETY 10/31/2011 ROD WU APRN 300.02 AN GEN ANXIETY 10/31/2011 OSVALDO RODRIGUEZ [...] DO K 300.02 AN GEN ANXIETY 10/31/2011 SANCHEZ DO, ELDA K 300.02 AN GEN ANXIETY 10/31/2011 OSVALDO RODRIGUEZ PSYD 300.02 AN GEN ANXIETY 10/31/2011 ELDA SANCHEZ DO K 300.02 AN GEN ANXIETY 10/31/2011 SANCHEZ ELDA EMERY K 300.02 AN GEN ANXIETY 10/31/2011 OSVALDO RODRIGUEZ PSYD L 300.02 AN GEN ANXIETY 10/31/2011 ELDA SANCHEZ DO K 300.02 AN GEN ANXIETY 12/06/2011 OSVALDO RODRIGUEZ PSYD L 296.32 MO DEPRESSIVE RECURRENT MODERATE 12/06/2011 TAVON RILEY APRN 296.32 MO DEPRESSIVE RECURRENT MODERATE 12/06/2011 ELDA SANCHEZ DO K 296.32 MO DEPRESSIVE RECURRENT MODERATE 12/06/2011 OSVALDO RODRIGUEZ PSYD L 296.32 MO DEPRESSIVE RECURRENT MODERATE 12/06/2011 ELDA SANCHEZ DO K 296.32 MO DEPRESSIVE RECURRENT MODERATE 12/06/2011 OSVALDO RODRIGUEZ PSYD L 296.32 MO DEPRESSIVE RECURRENT MODERATE 12/06/2011 296.32 MO DEPRESSIVE RECURRENT MODERATE 12/06/2011 296.32 MO DEPRESSIVE RECURRENT MODERATE 12/06/2011 296.32 MO DEPRESSIVE RECURRENT MODERATE 12/06/2011 296.32 MO DEPRESSIVE RECURRENT MODERATE 12/06/2011 ELDA SANCHEZ DO K 296.32 MO DEPRESSIVE RECURRENT MODERATE 12/06/2011 ELDA SANCHEZ DO K 296.32 MO DEPRESSIVE RECURRENT MODERATE 12/06/2011 JESUS SANCHEZ DOA K 296.32 MO DEPRESSIVE RECURRENT MODERATE 12/06/2011 ROD WU APRN A 296.32 MO DEPRESSIVE RECURRENT MODERATE 12/06/2011 OSVALDO RODRIGUEZ PSYD L 296.32 MO DEPRESSIVE RECURRENT MODERATE 12/06/2011 ELDA SANCHEZ DO K 296.32 MO DEPRESSIVE RECURRENT MODERATE 12/06/2011 OSVALDO RODRIGUEZ PSYD L 296.32 MO DEPRESSIVE RECURRENT MODERATE 12/06/2011 OSVALDO RODRIGUEZ PSYD L 296.32 MO DEPRESSIVE RECURRENT MODERATE 12/06/2011 ELDA SANCHEZ DO K 296.32 MO DEPRESSIVE RECURRENT MODERATE 12/06/2011 [...] ELDA K 296.32 MO DEPRESSIVE RECURRENT MODERATE 12/10/2011 OSVALDO RODRIGUEZ PSYD L 461.9 Sinusitis Acute 12/10/2011 TAVON RILEY APRN 461.9 Sinusitis Acute 12/10/2011 SANCHEZ JESUS EMERYA K 461.9 Sinusitis Acute 12/10/2011 OSVALDO RODRIGUEZ PSYD ANN L 461.9 Sinusitis Acute 12/10/2011 SANCHEZ DOJESUSA K 461.9 Sinusitis Acute 12/10/2011 OSVALDO RODRIGUEZ PSYD ANN L 461.9 Sinusitis Acute 12/10/2011 461.9 Sinusitis Acute 12/10/2011 461.9 Sinusitis Acute 12/10/2011 461.9 Sinusitis Acute 12/10/2011 461.9 Sinusitis Acute 12/10/2011 JESUS SANCHEZ DOA K 461.9 Sinusitis Acute 12/10/2011 SANCHEZ DOJESUSA K 461.9 Sinusitis Acute 12/10/2011 SANCHEZ DO ELDA K 461.9 Sinusitis Acute 12/10/2011 ROD WU APRN 461.9 Sinusitis Acute 12/10/2011 OSVALDO RODRIGUEZ PSYD ANN L 461.9 Sinusitis Acute 12/10/2011 SANCHEZ DO ELDA K 461.9 Sinusitis Acute 12/10/2011 OSVALDO RODRIGUEZ PSYD ANN L 461.9 Sinusitis Acute 12/10/2011 OSVALDO RODRIGUEZ PSYD ANN L 461.9 Sinusitis Acute 12/10/2011 SANCHEZ DO, ELDA [...] APRN 296.89 MO BIPOLAR II 01/02/2012 SANCHEZ JESUS EMERYA K 296.89 MO BIPOLAR II 01/02/2012 OSVALDO [...] DO ELDA K 296.89 MO BIPOLAR II 02/11/2012 OSVALDO RODIRGUEZ PSYD L 372.00 ACUTE CONJUNCTIVITIS UNSPECIFIED 02/11/2012 TAVON RILEY APRN 372.00 Acute Conjunctivitis Unspecified 02/11/2012 SANCHEZ JESUS EMERYA K 372.00 Acute Conjunctivitis Unspecified 02/11/2012 OSVALDO RODRIGUEZ PSYD L 372.00 Acute Conjunctivitis Unspecified 02/11/2012 ELDA SANCHEZ DO K 372.00 Acute Conjunctivitis Unspecified 02/11/2012 OSVALDO RODRIGUEZ PSYD ANN L 372.00 Acute Conjunctivitis Unspecified 02/11/2012 372.00 Acute Conjunctivitis Unspecified 02/11/2012 372.00 Acute Conjunctivitis Unspecified 02/11/2012 372.00 Acute Conjunctivitis Unspecified 02/11/2012 372.00 Acute Conjunctivitis Unspecified 02/11/2012 SANCHEZ JESUS EMERYA K 372.00 Acute Conjunctivitis Unspecified 02/11/2012 SANCHEZ DO ELDA K 372.00 Acute Conjunctivitis Unspecified 02/11/2012 SANCHEZ JESUS EMERYA K 372.00 Acute Conjunctivitis Unspecified 02/11/2012 JAZMINHollie INGRAM ROD A 372.00 Acute Conjunctivitis Unspecified 02/11/2012 [...] L 276.51 Dehydration 04/21/2012 OSVALDO RODRIGUEZ PSYD V70.0 [...] ROD WU APRN A 276.51 Dehydration 04/21/2012 JAZMIN INGRAM ROD A V70.0 Routine General Medical Examination At [...] L 276.51 Dehydration 04/21/2012 OSVALDO RODRIGUEZ PSYD V70.0 Routine General Medical Examination At A Health Care Facility 04/21/2012 ELDA SANCHEZ DO K 276.51 Dehydration 04/21/2012 ELDA SANCHEZ DO V70.0 Routine General Medical Examination At A [...] DIS W/O AGORA 07/16/2012 ELDA SANCHEZ DO 300.01 AN PANIC DIS W/O AGORA 07/16/2012 ELDA SANCHEZ DO K 300.01 AN PANIC DIS W/O AGORA 07/16/2012 ROD WU APRN 300.01 AN PANIC DIS W/O AGORA [...] AN PANIC DIS W/O AGORA 07/16/2012 SANCHEZ DO ELDA K 300.01 AN PANIC DIS W/O [...] DIS W/O AGORA 08/11/2012 OSVALDO RODRIGUEZ PSYD L 724.5 BACK PAIN, GENERAL 08/11/2012 TAVON RILEY APRN 724.5 BACK PAIN, GENERAL 08/11/2012 SANCHEZ DOJESUSA K 724.5 BACK PAIN, GENERAL 08/11/2012 OSVALDO RODRIGUEZ PSYD L 724.5 BACK PAIN, GENERAL 08/11/2012 LAURA DOELDA K 724.5 BACK PAIN, GENERAL 08/11/2012 OSVALDO RODRIGUEZ PSYD L 724.5 BACK PAIN, GENERAL 08/11/2012 724.5 BACK PAIN, GENERAL 08/11/2012 724.5 BACK PAIN, GENERAL 08/11/2012 724.5 BACK PAIN, GENERAL 08/11/2012 724.5 BACK PAIN, GENERAL 08/11/2012 SANCHEZ DO ELDA K 724.5 BACK PAIN, GENERAL 08/11/2012 SANCHEZ DO ELDA K 724.5 BACK PAIN, GENERAL 08/11/2012 SANCHEZ DO ELDA K 724.5 BACK PAIN, GENERAL 08/11/2012 ROD WU APRN A 724.5 BACK PAIN, GENERAL 08/11/2012 OSVALDO RODRIGUEZ PSYD L 724.5 BACK PAIN, GENERAL 08/11/2012 SANCHEZ DOJESUSA K 724.5 BACK PAIN, GENERAL 08/11/2012 OSVALDO RODRIGUEZ PSYD L 724.5 BACK PAIN, GENERAL 08/11/2012 OSVALDO RODRIGUEZ PSYD L 724.5 BACK PAIN, GENERAL 08/11/2012 SANCHEZ DO ELDA K 724.5 BACK PAIN, GENERAL 08/11/2012 OSVALDO RODRIGUEZ PSYD L 724.5 BACK PAIN, GENERAL 08/11/2012 OSVALDO RODRIGUEZ PSYD L 724.5 BACK PAIN, GENERAL 08/11/2012 SANCHEZ DO ELDA K 724.5 BACK PAIN, GENERAL 08/11/2012 SANCHEZ DO ELDA K 724.5 BACK PAIN, GENERAL 08/11/2012 SANCHEZ DO ELDA K 724.5 BACK PAIN, GENERAL 08/11/2012 SANCHEZ DO ELDA K 724.5 BACK PAIN, GENERAL 08/11/2012 OSVALDO RODRIGUEZ PSYD L 724.5 BACK PAIN, GENERAL 08/11/2012 SANCHEZ DO, ELDA K 724.5 BACK PAIN, GENERAL 08/11/2012 SANCHEZ DO ELDA K 724.5 BACK PAIN, GENERAL 08/11/2012 OSVALDO RODRIGUEZ PSYD L 724.5 BACK PAIN, GENERAL 08/11/2012 SANCHEZ DO ELDA K 724.5 BACK PAIN, GENERAL 11/06/2012 JESUS SANCHEZ DOA K V58.69 LONG-TERM (CURRENT) USE OF OTHER MEDICATIONS 11/06/2012 OSVALDO RODRIGUEZ PSYD V58.69 LONG-TERM (CURRENT) USE OF OTHER MEDICATIONS 11/06/2012 JESUS SANCHEZ DOA K V58.69 LONG-TERM (CURRENT) USE OF OTHER MEDICATIONS 11/06/2012 OSVALDO RODRIGUEZ PSYD V58.69 LONG-TERM (CURRENT) USE OF OTHER MEDICATIONS 11/06/2012 V58.69 LONG-TERM ( CURRENT) USE OF OTHER MEDICATIONS 11/06/2012 V58.69 LONG-TERM ( CURRENT) USE OF OTHER MEDICATIONS 11/06/2012 V58.69 LONG-TERM ( CURRENT) USE OF OTHER MEDICATIONS 11/06/2012 V58.69 LONG-TERM ( CURRENT) USE OF OTHER MEDICATIONS 11/06/2012 SANCHEZ DO [...] LONG-TERM (CURRENT) USE OF OTHER MEDICATIONS 11/06/2012 LAURA EMERY ELDA K V58.69 LONG-TERM (CURRENT) USE OF OTHER MEDICATIONS 11/06/2012 OSVALDO RODRIGUEZ PSYD L V58.69 LONG-TERM (CURRENT) USE OF OTHER MEDICATIONS 11/06/2012 OSVALDO RODRIGUEZ PSYD L V58.69 LONG-TERM (CURRENT) USE OF OTHER MEDICATIONS 11/06/2012 JESUS SANCHEZ DOA K V58.69 LONG-TERM (CURRENT) USE OF OTHER [...] ELDA K V76.10 BREAST CANCER SCREENING 03/10/2013 JESUS SANCHEZ DOA K V76.2 CERVICAL CANCER SCREENING (PAP SMEAR) 03/10/2013 JESUS SANCHEZ DOA K V73.81 HPV SCREENING 03/10/2013 LAURA EMERY ELDA K V76.10 BREAST CANCER SCREENING 03/10/2013 JESUS SANCHEZ DOA K V76.2 CERVICAL CANCER SCREENING (PAP SMEAR) 03/10/2013 JAZMIN FLUME WORKER, ROD A V73.81 HPV SCREENING 03/10/2013 JAZMIN FLUME WORKER, ROD A V76.10 BREAST CANCER SCREENING 03/10/2013 JAZMIN FLUME WORKER, ROD A V76.2 CERVICAL CANCER SCREENING (PAP SMEAR) 03/10/2013 OSVALDO RODRIGUEZ PSYD L V73.81 HPV SCREENING 03/10/2013 OSVALDO RODRIGUEZ PSYD V76.10 BREAST CANCER SCREENING 03/10/2013 OSVALDO RODRIGUEZ PSYD V76.2 CERVICAL CANCER SCREENING (PAP SMEAR) 03/10/2013 ELDA SANCHEZ DO K V73.81 HPV SCREENING 03/10/2013 LAURA EMERY [...] EMERY ELDA K V73.81 HPV SCREENING 03/10/2013 SANCHEZ DO ELDA K V76.10 BREAST CANCER SCREENING 03/10/2013 SANCHEZ DO ELDA K V76.2 CERVICAL CANCER SCREENING (PAP SMEAR) 03/10/2013 SANCHEZ DO ELDA K V73.81 HPV SCREENING 03/10/2013 SANCHEZ DO ELDA K V76.10 BREAST CANCER SCREENING 03/10/2013 SANCHEZ DO ELDA K V76.2 CERVICAL CANCER SCREENING (PAP SMEAR) 03/10/2013 SANCHEZ DO, ELDA K V73.81 HPV SCREENING 03/10/2013 LAURA EMERY, ELDA K V76.10 BREAST CANCER SCREENING 03/10/2013 LAURA EMERY, ELDA K V76.2 CERVICAL CANCER SCREENING (PAP SMEAR) 03/10/2013 LAURA EMERY, ELDA K V73.81 HPV SCREENING 03/10/2013 LAURA [...] SMEAR) 04/14/2013 702.19 OTHER SEBORRHEIC KERATOSIS 04/14/2013 SANCHEZ DO ELDA K 702.19 OTHER SEBORRHEIC KERATOSIS 04/14/2013 SANCHEZ ELDA K 702.19 OTHER SEBORRHEIC KERATOSIS 04/14/2013 [...] PSYD L 702.19 OTHER SEBORRHEIC KERATOSIS 04/14/2013 OSVALDO [...] OTHER SEBORRHEIC KERATOSIS 11/12/2013 ROD WU APRN 724.2 LUMBAGO 11/12/2013 OSVALDO RODRIGUEZ PSYD L 724.2 LUMBAGO 11/12/2013 SANCHEZ JESUS EMERYA K 724.2 LUMBAGO 11/12/2013 OSVALDO RODRIGUEZ PSYD L 724.2 LUMBAGO 11/12/2013 OSVALDO RODRIGUEZ PSYD ANN [...] DO, ELDA K 704.1 HIRSUTISM 04/26/2014 SANCHEZ DO [...] DO, ELDA K 704.1 HIRSUTISM 04/26/2014 SANCHEZ DO [...] 300.00 ANXIETY STATE NOS 06/21/2014 MARI OSORIO FLUME WORKER Ot 401.9 HYPERTENSION NOS 06/21/2014 MARI OSORIO FLUME WORKER Ot V58.69 OTH MED,LT,CURRENT USE 06/24/2014 LAURA EMERYJESUSA Rylee V81.1 HYPERTENSION SCREENING 06/24/2014 SANCHEZ JESUS EMERYA K V81.1 HYPERTENSION SCREENING 06/24/2014 SANCHEZ DOJESUSA K V81.1 HYPERTENSION SCREENING 06/24/2014 OSVALDO RODRIGUEZ PSYD V81.1 HYPERTENSION SCREENING 06/24/2014 SANCHEZ DOJESUSA K V81.1 HYPERTENSION SCREENING 06/24/2014 SANCHEZ JESUS EMERYA K V81.1 HYPERTENSION SCREENING 06/24/2014 OSVALDO RODRIGUEZ PSYD V81.1 HYPERTENSION SCREENING 06/24/2014 SANCHEZ JESUS EMERYA K V81.1 HYPERTENSION SCREENING 06/29/2014 JESUS SANCHEZ DOA K 691.8 ECZEMA- ATOPIC 06/29/2014 SANCHEZ JESUS EMERYA K 691.8 ECZEMA- ATOPIC 06/29/2014 OSVALDO RODRIGUEZ PSYD 691.8 ECZEMA- ATOPIC 06/29/2014 SANCHEZ JESUS EMERYA K 691.8 ECZEMA- ATOPIC 06/29/2014 JESUS SANCHEZ DOA K 691.8 ECZEMA- ATOPIC 06/29/2014 OSVALDO RODRIGUEZ PSYD 691.8 ECZEMA- ATOPIC 06/29/2014 SANCHEZ DO ELDA K 691.8 ECZEMA- ATOPIC 08/31/2014 JESUS SANCHEZ DOA K 473.9 UNSPECIFIED SINUSITIS (CHRONIC) 08/31/2014 JESUS SANCHEZ DOA K 789.09 ABDOMINAL PAIN OTHER SPECIFIED SITE 08/31/2014 JESUS SANCHEZ DOA K 473.9 UNSPECIFIED SINUSITIS (CHRONIC) 08/31/2014 JESUS SANCHEZ DOA K 789.09 ABDOMINAL PAIN OTHER SPECIFIED SITE 08/31/2014 OSVALDO RODRIGUEZ PSYD 473.9 UNSPECIFIED SINUSITIS (CHRONIC) 08/31/2014 OSVALDO RODRIGUEZ PSYD 789.09 ABDOMINAL PAIN OTHER SPECIFIED SITE 08/31/2014 SANCHEZ JESUS EMERYA K 473.9 UNSPECIFIED SINUSITIS (CHRONIC) 08/31/2014 JESUS SANCHEZ DOA K 789.09 ABDOMINAL PAIN OTHER SPECIFIED SITE 05/01/2015 Ot 327.23 05/01/2015 Ot 401.9 05/01/2015 ED OVIDEO DO Ot 599.0 URIN TRACT INFECTION NOS 05/01/2015 [...] Ot I10 10/13/2015 Ot R07.9 01/09/2016 KAITLYNN SALDANA GENERAL STUDIES PROGRAM CHAIR Ot R10.30 02/13/2016 KAITLYNN SALDANA GENERAL STUDIES PROGRAM CHAIR Ot R10.30 LOWER ABDOMINAL PAIN, UNSPECIFIED 02/17/2016 KAITLYNN SALDANA GENERAL STUDIES PROGRAM CHAIR Ot R10.30 LOWER ABDOMINAL PAIN, UNSPECIFIED 08/18/2016 MARTHA HEALY Ot J11.1 FLU DUE TO UNIDENTIFIED INFLUENZA VIRUS 08/18/2016 MARTHA HEALY Ot M79.1 MYALGIA 08/18/2016 BIBIANA DE LA VEGA Ot R07.9 CHEST PAIN, UNSPECIFIED 08/18/2016 Ot E66.9 OBESITY, UNSPECIFIED 08/18/2016 Ot E78.5 HYPERLIPIDEMIA, UNSPECIFIED 08/18/2016 Ot I10 ESSENTIAL ( PRIMARY) HYPERTENSION 08/18/2016 Ot R07.9 CHEST PAIN, UNSPECIFIED 08/18/2016 KAITLYNN SALDANA GENERAL STUDIES PROGRAM CHAIR Ot R10.30 LOWER ABDOMINAL PAIN, UNSPECIFIED 08/20/2016 ED OVIEDO DO Ot I10 ESSENTIAL (PRIMARY) HYPERTENSION 08/20/2016 ED OVIEDO DO Ot J18.9 PNEUMONIA, UNSPECIFIED ORGANISM 08/20/2016 IVELISSE DO, ED K Ot R50.9 FEVER, UNSPECIFIED 08/20/2016 IVELISSE DO, ED K Ot Z79.899 OTHER EXAMINER OF CURRENCY (CURRENT) DRUG THERAPY 08/20/2016 MARTHA HEALYP Ot J11.1 FLU DUE TO UNIDENTIFIED INFLUENZA VIRUS 08/20/2016 MARTHA HEALY GENERAL STUDIES PROGRAM CHAIR Ot M79.1 MYALGIA 08/20/2016 MARTHA HEALY GENERAL STUDIES PROGRAM CHAIR Ot J11.1 FLU DUE TO UNIDENTIFIED INFLUENZA VIRUS 08/20/2016 MARTHA HEALY GENERAL STUDIES PROGRAM CHAIR Ot M79.1 MYALGIA 08/21/2016 IVELISSE DO, ED K Ot I10 ESSENTIAL (PRIMARY) HYPERTENSION 08/21/2016 IVELISSE DO, ED K Ot J18.9 PNEUMONIA, UNSPECIFIED ORGANISM 08/21/2016 IVELISSE DO, ED K Ot R50.9 FEVER, UNSPECIFIED 08/21/2016 IVELISSE DO, ED K Ot Z79.899 OTHER JAIL (CURRENT) DRUG THERAPY 08/24/2016 MARTHA HEALYP Ot J11.1 FLU DUE TO UNIDENTIFIED INFLUENZA VIRUS 08/24/2016 MARTHA HEALY GENERAL STUDIES PROGRAM CHAIR Ot M79.1 MYALGIA 11/27/2016 KAITLYNN SALDANA GENERAL STUDIES PROGRAM CHAIR Ot R10.30 LOWER ABDOMINAL PAIN, UNSPECIFIED 10/17/2017 EDUARDO ONEAL, GAMAL R Ot N63.10 UNSPECIFIED LUMP IN THE RIGHT BREAST, UN 10/17/2017 EDUARDO ONEAL, GAMAL R Ot N63.20 UNSPECIFIED LUMP IN THE LEFT BREAST, UNS 04/01/2018 GAMAL CLARK MD R Ot N63.10 UNSPECIFIED LUMP IN THE RIGHT BREAST, UN 04/01/2018 EDUARDO ONEAL, GAMAL R Ot N63.20 UNSPECIFIED LUMP IN THE LEFT BREAST, UNS 04/01/2018 MARI OSORIO APRN Ot F32.9 MAJOR DEPRESSIVE DISORDER, SINGLE EPISOD 04/01/2018 MARI OSORIO APRN Ot F41.9 ANXIETY DISORDER, UNSPECIFIED 04/01/2018 MARI OSORIO APRN Ot I10 ESSENTIAL (PRIMARY) HYPERTENSION 04/01/2018 MARI OSORIO APRN Ot K21.9 GASTRO-ESOPHAGEAL REFLUX DISEASE WITHOUT 04/01/2018 MARI OSORIO APRN Ot R10.31 RIGHT LOWER QUADRANT PAIN 04/01/2018 MARI OSORIO APRN Ot R11.0 NAUSEA 04/01/2018 MARI OSORIO APRN Ot Z87.19 PERSONAL HISTORY OF OTHER DISEASES OF TH 04/01/2018 MARI OSORIO APRN Ot Z88.0 ALLERGY STATUS TO PENICILLIN 04/01/2018 MARI OSORIO APRN Ot Z90.89 ACQUIRED ABSENCE OF OTHER ORGANS 04/01/2018 MARI OSORIO APRN Ot Z98.51 TUBAL LIGATION STATUS 04/01/2018 GAMAL CLARK MD Ot N63.10 UNSPECIFIED LUMP IN THE RIGHT BREAST, UN 04/01/2018 GAMAL CLARK MD Ot N63.20 UNSPECIFIED LUMP IN THE LEFT BREAST, UNS 04/03/2018 MARI OSORIO APRN Ot F32.9 MAJOR DEPRESSIVE DISORDER, SINGLE EPISOD 04/03/2018 MARI OSORIO APRN Ot F41.9 ANXIETY DISORDER, UNSPECIFIED 04/03/2018 MARI OSORIO APRN Ot I10 ESSENTIAL (PRIMARY) HYPERTENSION 04/03/2018 MARI OSORIO APRN Ot K21.9 GASTRO-ESOPHAGEAL REFLUX DISEASE WITHOUT 04/03/2018 MARI OSORIO APRN Ot R10.31 RIGHT LOWER QUADRANT PAIN 04/03/2018 MARI OSORIO APRN Ot R11.0 NAUSEA 04/03/2018 MARI OSORIO APRN Ot Z87.19 PERSONAL HISTORY OF OTHER DISEASES OF 04/03/2018 MARI OSORIO APRN Ot Z88.0 ALLERGY STATUS TO PENICILLIN 04/03/2018 MARI OSORIO APRN Ot Z90.89 ACQUIRED ABSENCE OF OTHER ORGANS 04/03/2018 MARI OSORIO APRN Ot Z98.51 TUBAL LIGATION STATUS 05/06/2018 GAMAL CLARK MD Ot N63.20 UNSPECIFIED LUMP IN THE LEFT BREAST, UNS 05/10/2018 BARNIALCIDES NAYLOR DO Ot G47.33 OBSTRUCTIVE SLEEP APNEA (ADULT) (PEDIATR 05/12/2018 ALCIDES RAMESH DO Ot G47.33 OBSTRUCTIVE SLEEP APNEA (ADULT) (PEDIATR 07/08/2018 GAMAL CLARK MD Ot N63.10 UNSPECIFIED LUMP IN THE RIGHT BREAST, UN 07/08/2018 GAULT MD, GAMAL R Ot N63.20 UNSPECIFIED LUMP IN THE LEFT BREAST, UNS 07/08/2018 GAMAL CLARK MD R Ot N63.20 UNSPECIFIED LUMP IN THE LEFT BREAST, UNS 07/11/2018 VERONIKA LOBO DO Ot Z01.818 ENCOUNTER FOR OTHER PREPROCEDURAL EXAMIN Procedures Code [place] [address] INDIV PSYTX 45/50 MIN 08/25/2012 65893 INDIV PSYTX 20/30 MIN 10/01/2012 48199 PSYTX PT&/FAMILY 45 MINUTES 11/12/2012 95397 PSYTX PT&/FAMILY 45 MINUTES 12/23/2012 19039 PAP SMEAR 03/12/2013 Q0091 PAP SMEAR OBTAIN SMEAR 03/12/2013 15455 EXCISION BENIGN LEISON > 4.0 cm (specify location in [facility] description) 04/07/2013 J3420 B12 VITAMIN INJECTION 05/07/2013 J3420 B12 VITAMIN INJECTION 08/18/2013 56819 THERAPUTIC INJ SQ/IM 08/18/2013 98720 ROUTINE VENIPUNCTURE 08/31/2013 9694587 GFR CALC (RESULT ONLY) 08/31/2013 72973 CMP 08/31/2013 08604 UA W/ CULTURE IF INDICATED 11/12/2013 80447 PSYCH DIAGNOSTIC EVALUATION 01/08/2014 64938 PSYTX PT&/FAMILY 45 MINUTES 04/19/2014 13167 ROUTINE VENIPUNCTURE 04/26/2014 3012013 GFR CALC (RESULT ONLY) 04/26/2014 95267 CMP 04/26/2014 55137 LIPID PANEL 04/26/2014 35148 PSYTX PT&/FAMILY 45 MINUTES 04/26/2014 16072 PSYTX PT&/FAMILY 45 MINUTES 05/05/2014 40530 PSYTX PT&/FAMILY 30 MINUTES 05/06/2014 79975 PSYTX PT&/FAMILY 45 MINUTES 06/24/2014 BLOOD PRESSURE CHECK 06/24/2014 BLOOD PRESSURE CHECK 07/06/2014 48779 PSYTX PT&/FAMILY 45 MINUTES 08/03/2014 BLOOD PRESSURE CHECK 09/09/2014 09828 PSYTX PT&/FAMILY 45 MINUTES 09/23/2014 Results Test Result Range Influenza virus A and B antigen detection - 08/18/16 14:13 FLU RESULT NEGATIVE FOR INFLUENZA A AND B ANTIGENS BY IA NRG Complete blood count (CBC) with automated white [...] culture - 08/19/16 23:55 Bacterial urine culture [id number] NRG COLONY COUNT 10,000/ML - 100,000/ML NRG [...] 08/06/17 15:10 Testosterone, Total, LC/MS 32 ng/dL [facility] LIPID PANEL - 11/15/17 09:22 CHOLESTEROL, TOTAL 191 mg/dL <200 HDL CHOLESTEROL 51 mg/dL >50 TRIGLYCERIDES 131 mg/dL <150 LDL-CHOLESTEROL 115 mg/dL (calc) NRG CHOL/HDLC RATIO 3.7 (calc) <5.0 NON HDL CHOLESTEROL 140 mg/dL (calc) <130 CMP - 11/15/17 09:22 GLUCOSE 101 mg/dL 65-99 UREA NITROGEN (BUN) 11 mg/dL 7-25 CREATININE 0.66 mg/dL 0.50-1.10 eGFR NON-AFR. POLISH 112 mL/min/1.73m2 > OR=60 eGFR 130 mL/min/1.73m2 [...] 16 U/L 10-30 ALT 15 U/L 6-29 Complete blood count (CBC) with automated white blood cell (WBC) differential - 04/01/18 14:38 Blood leukocytes automated count (number/volume) 9.7 10*3/uL 4.3-11.0 Blood erythrocytes automated count (number/volume) 4.10 10*6/uL 4.35-5.85 Venous blood hemoglobin measurement (mass/volume) 12.4 g/dL 11.5-16.0 Blood hematocrit (volume fraction) 35 % 35-52 Automated erythrocyte mean corpuscular volume 86 [foz_us] 80-99 Automated erythrocyte mean corpuscular hemoglobin (mass per erythrocyte) 30 pg 25-34 Automated erythrocyte mean corpuscular hemoglobin concentration measurement ( mass/volume) 35 g/dL 32-36 Automated erythrocyte distribution width ratio 14.0 % 10.0-14.5 Automated blood platelet count (count/volume) 299 10*3/uL 130-400 Automated blood platelet mean volume measurement 10.9 [foz_us] 7.4-10.4 Automated blood neutrophils/100 leukocytes 79 % 42-75 Automated blood lymphocytes/100 leukocytes 15 % 12-44 Blood monocytes/100 leukocytes 5 % 0-12 Automated blood eosinophils/100 leukocytes 2 % 0-10 Automated blood basophils/100 leukocytes 0 % 0-10 Blood neutrophils automated count (number/volume) 7.6 10*3 1.8-7.8 Blood lymphocytes automated count (number/volume) 1.5 10*3 1.0-4.0 Blood monocytes automated count (number/volume) 0.5 10*3 0.0-1.0 Automated eosinophil count 0.2 10*3/uL 0.0-0.3 Automated blood basophil count (count/volume) 0.0 10*3/uL 0.0-0.1 Comprehensive metabolic panel - 04/01/18 14:38 Serum or plasma sodium measurement (moles/volume) 139 mmol/L 135-145 Serum or plasma potassium measurement (moles/volume) 3.3 mmol/L 3.6-5.0 Serum or plasma chloride measurement (moles/volume) 103 mmol/L 98-107 Carbon dioxide 27 mmol/L 21-32 Serum or plasma anion gap determination (moles/volume) 9 mmol/L 5-14 Serum or plasma urea nitrogen measurement (mass/volume) 14 mg/dL 7-18 Serum or plasma creatinine measurement (mass/volume) 0.78 mg/dL 0.60-1.30 Serum or plasma urea nitrogen/creatinine mass ratio 18 NRG Serum or plasma creatinine measurement with calculation of estimated glomerular filtration rate > NRG Serum or plasma glucose measurement (mass/volume) 133 mg/dL 70-105 Serum or plasma calcium measurement (mass/volume) 9.7 mg/dL 8.5-10.1 Serum or plasma total bilirubin measurement (mass/volume) 0.3 mg/dL 0.1-1.0 Serum or plasma alkaline phosphatase measurement (enzymatic activity/volume) 100 U/L 40-136 Serum or plasma aspartate aminotransferase measurement (enzymatic activity/ volume) 13 U/L 5-34 Serum or plasma alanine aminotransferase measurement (enzymatic activity/volume ) 18 U/L 0-55 Serum or plasma protein measurement (mass/volume) 7.8 g/dL 6.4-8.2 Serum or plasma albumin measurement (mass/volume) 4.3 g/dL 3.2-4.5 Lipase - 04/01/18 14:38 Lipase 31 U/L 8-78 Serum or plasma choriogonadotropin ( test) detection - 04/01/18 14:38 Serum or plasma choriogonadotropin ( test) detection NEGATIVE NEGATIVE Complete urinalysis with reflex to culture - 04/01/18 14:55 Urine color determination YELLOW NRG Urine clarity determination CLEAR NRG Urine pH measurement by test strip 5 5-9 Specific gravity of urine by test strip 1.025 1.016- 1.022 Urine protein assay by test [...] urobilinogen measurement by automated test strip (mass/volume) NORMAL NORMAL Urine leukocyte esterase detection by dipstick 1+ NEGATIVE Automated urine sediment erythrocyte count by microscopy (number/high power field) NONE NRG Automated urine sediment leukocyte count by microscopy (number/high power field ) [HPF] NRG Bacteria detection in urine sediment by light microscopy MODERATE NRG Squamous epithelial cells detection in urine sediment by light microscopy 10-25 NRG Crystals detection in urine sediment by light microscopy PRESENT NRG Casts detection in urine sediment by light microscopy NONE NRG Mucus detection in urine sediment by light microscopy NEGATIVE NRG Complete urinalysis with reflex to culture YES NRG Amorphous sediment detection in urine sediment by light microscopy RARE RICK URATES NRG Bacterial urine culture - 04/01/18 14:55 Bacterial urine culture SEE COMMEN NRG COLONY COUNT . NRG Encounters ACCT No. Visit Date/Time Discharge Status Pt. Type Provider Facility Loc./Unit Complaint [id number] 11/12/2014 14:49:00 11/12/2014 23:59:59 CLS Outpatient ELDA SANCHEZ DO R[place] [id number] 09/23/2014 13:51:00 09/23/2014 23:59:59 CLS Outpatient OSVALDO RODRIGUEZ PSYD [id number] 09/09/2014 12:50:00 09/09/2014 23:59:59 CLS Outpatient JESUS SANCHEZ DOArmando Mckee [id number] 08/31/2014 16:50:00 08/31/2014 23:59:59 CLS Outpatient JESUS SANCHEZ DOArmando Mckee [id number] 08/03/2014 12:55:00 08/03/2014 23:59:59 CLS Outpatient OSVALDO RODRIGUEZ PSYD [id number] 07/06/2014 12:44:00 07/06/2014 23:59:59 CLS Outpatient ELDA SANCHEZ DO [place] [id number] 06/29/2014 14:34:00 06/29/2014 23:59:59 CLS Outpatient ELDA SANCHEZ DO [place] [id number] 06/24/2014 13:02:00 06/24/2014 23:59:59 CLS Outpatient ELDA SANCHEZ DO [place] [id number] 06/22/2014 14:07:00 06/22/2014 23:59:59 CLS Outpatient JESUS SANCHEZ DOArmando Mckee [id number] 05/06/2014 13:25:00 05/06/2014 23:59:59 CLS Outpatient OSVALDO RODRIGUEZ PSYD [id number] 05/05/2014 13:48:00 05/05/2014 23:59:59 CLS Outpatient OSVALDO RODRIGUEZ PSYD [id number] 05/03/2014 11:34:00 05/03/2014 23:59:59 CLS Outpatient ELDA SANCHEZ DO [id number] 04/26/2014 11:10:00 04/26/2014 23:59:59 CLS Outpatient MCCLEEARY PSYD, JEREMIAS L [id number] 04/19/2014 08:58:00 04/19/2014 23:59:59 CLS Outpatient OSVALDO RODRIGUEZ PSYD [id number] 02/02/2014 16:42:00 02/02/2014 23:59:59 CLS Outpatient ELDA SANCHEZ DO [id number] 01/08/2014 11:09:00 01/08/2014 23:59:59 CLS Outpatient OSVALDO RODRIGUEZ PSYD [id number] 11/12/2013 13:25:00 11/12/2013 23:59:59 CLS Outpatient ROD WU APRN [id number] 08/31/2013 13:41:00 08/31/2013 23:59:59 CLS Outpatient ELDA SANCHEZ DO [id number] 08/18/2013 11:42:00 08/18/2013 23:59:59 CLS Outpatient ELDA SANCHEZ DO [id number] 06/10/2013 08:49:00 06/10/2013 23:59:59 CLS Outpatient SANCHEZ DOELDA [id number] 12/22/2012 13:53:00 12/22/2012 23:59:59 CLS Outpatient OSVALDO RODRIGUEZ PSYD [id number] 12/08/2012 10:05:00 12/08/2012 23:59:59 CLS Outpatient ELDA SANCHEZ DO [id number] 11/10/2012 08:53:00 11/10/2012 23:59:59 CLS Outpatient OSVALDO RODRIGUEZ PSYD [id number] 11/06/2012 10:44:00 11/06/2012 23:59:59 CLS Outpatient SANCHEZ DOELDA [id number] 09/25/2012 16:58:00 09/25/2012 23:59:59 CLS Outpatient OSVALDO INGRAM TAVON B[address] 276 08/11/2012 15:57:00 08/11/2012 23:59:59 CLS Outpatient OSVALDO RODRIGUEZ PSYD [id number] 05/07/2013 11:18:00 Document Registration [id number] 04/07/2013 10:55:00 Document Registration [id number] 03/10/2013 16:25:00 Document Registration [id number] 02/25/2013 16:40:00 Document Registration [id number] 08/09/2017 17:08:00 Document Registration [id number] 07/28/2015 10:32:40 ACT Document Registration [id number] 10/10/2016 08:38:00 Document Registration [id number] 05/11/2017 08:06:00 Document Registration [id number] 07/11/2017 08:44:00 Document Registration [id number] 05/21/2018 18:00:00 05/21/2018 23:59:59 CLS Outpatient GAMAL CLARK [facility] [id number] 11/15/2017 10:20:00 Document Registration [id number] 08/06/2017 14:00:00 Document Registration [id number] 07/10/2017 12:45:00 Document Registration [id number] 07/18/2018 13:30:00 07/18/2018 23:59:59 CLS Preadmit VERONIKA LOBO DO [facility] ENDO RECTAL BLEEDING [id number] 07/11/2018 05:34:00 07/11/2018 10:18:00 DIS Outpatient VERONIKA LOBO DO [facility] PREOP COLONOSCOPY [id number] 05/09/2018 21:06:00 05/10/2018 06:48:00 DIS Outpatient ALCIDES RAMESH DO [facility] SLEEP TORO [id number] 05/05/2018 13:16:00 05/05/2018 23:59:59 CLS Outpatient GAMAL CLARK MD [facility] RAD LEFT BREAST MASS [id number] 04/01/2018 14:26:00 04/01/2018 16:48:00 DIS Emergency MARI OSORIO APRN [facility] ER NAUSEA,DIZZY,DRY MOUTHED [id number] 10/11/2017 07:23:00 10/11/2017 23:59:59 CLS Outpatient GAMAL CLARK MD [facility] RAD LT BREAST MASS [id number] 09/17/2017 21:00:00 09/17/2017 23:59:59 CLS Preadmit ALCIDES RAMESH DO [facility] SLEEP G47.33 OBSTRUCTIVE SLEEP APNEA [id number] 08/19/2016 22:50:00 08/20/2016 00:49:00 DIS Emergency ED OVIEDO DO R[place]e [facility] ER HIGH FEVER [id number] 08/18/2016 12:51:00 08/18/2016 16:10:00 DIS Emergency MARTHA HEALY [facility] ER BODY ACHES/COUGH/CHILLS [id number] 01/06/2016 10:13:00 01/06/2016 23:59:59 CLS Outpatient KAITLYNN SALDANA [facility] RAD LT SIDED ABD PAIN [id number] 07/28/2015 10:30:00 07/28/2015 23:59:59 CLS Outpatient BIBIANA DE LA VEGA [facility] CARD CP,HTN.,HLP [id number] 05/01/2015 04:26:00 05/01/2015 05:20:00 DIS Emergency ED OVIEDO DO R[place]e [facility] ER ABD PAIN [id number] 06/21/2014 12:47:00 06/21/2014 14:37:00 DIS Emergency MARI OSORIO APRN [facility] ER LIGHT HEADED HIGH BLOOD PRESSURE [id number] 08/01/2015 08:21:00 Document Registration [id number] 05/01/2015 04:26:00 Document Registration [id number] 05/01/2015 04:26:00 Document Registration
--- NOTE | 2018-08-05 08:20 | Progress Note-Pre Operative ---
Pre-Operative Progress Note H&P Reviewed The H&P was reviewed, patient examined and no changes noted. Time Seen by Provider: 08:17 Date H&P Reviewed: Aug 05, 2018 Time H&P Reviewed: 08:18 Pre-Operative Diagnosis: rectal bleed VERONIKA LOBO DO Aug 05, 2018 08:20
[2018-08-05] MEDS ORDERED: PROPOFOL INJECTION 50 ML IV ONE (08:41)
[2018-08-05] MEDS ORDERED: MIDAZOLAM 2 MG/2 ML (VERSED) VIAL ONE (08:41)
--- NOTE | 2018-08-05 09:28 | Progress Note-Post Operative ---
Post-Operative Progess Note Surgeon (s)/Bilingual Manager (s) Surgeon VERONIKA LOBO DO Bilingual Manager: none Pre-Operative Diagnosis rectal bleed Post-Operative Diagnosis Internal Hemorrhoids Tight anal sphincter Procedure & Operative Findings Date of Procedure 08/05/18 Procedure Performed/Findings colonoscopy Anesthesia Type IV sedation by ROPE LAYING MACHINE OPERATOR Estimated Blood Loss Estimated blood loss (mL): none Specimens/Packing Specimens Removed none VERONIKA LOBO DO Aug 05, 2018 09:28
--- NOTE | 2018-08-05 09:29 | Endoscopy Discharge Instruct ---
Endo Procedure/Findings Findings 1.: Internal Hemorrhoids Discharge Instructions - Activity: You might feel a little sleepy until tomorrow. This is due to the medicine you received to relax you. Until tomorrow, you should: NOT drive a car, operate machinery or power tools. NOT drink any alcoholic beverages. NOT make any important decisions or sign importortant papers. Do not return to work until tomorrow, unless otherwise instructed. Resume previous activities tomorrow. Diet: Start by taking liquids. If you tolerate liquids, advance to solid food. make an appointment for one week. Notify Physician - If you experience excessive bleeding, unusual abdominal pain, fever, or chest pain, contact your doctor immediately. Follow-Up: - I have received and understand the above instructions and will call my doctor if I have any further questions. Patient Signature Date Nurse Signature Other (Relationship) VERONIKA LOBO DO Aug 05, 2018 09:29
[2018-08-05 09:50] VITALS: BP 121/71
[2018-08-05 10:20] VITALS: BP 121/87
[2018-08-05 10:35] VITALS: BP 121/87
--- NOTE | 2018-08-05 13:37 | Anesthesia-General Post-Op ---
MAC Patient Condition Mental Status/LOC: Same as Preop Cardiovascular: Satisfactory Nausea/Vomiting: Absent Respiratory: Satisfactory Pain: Controlled Complications: Absent Post Op Complications Complications None Follow Up Care/Instructions Patient Instructions None needed. Anesthesiology Discharge Order Discharge Order Patient is doing well, no complaints, stable vital signs, no apparent adverse anesthesia problems. No complications reported per nursing. ALY DUMAS CRNA Aug 05, 2018 13:37
--- NOTE | 2018-08-06 00:03 | OPERATIVE REPORT ---
DATE OF SERVICE: PREOPERATIVE DIAGNOSIS: Rectal bleed. POSTOPERATIVE DIAGNOSIS: Internal hemorrhoids. PROCEDURE: Colonoscopy. SURGEON: Connor Gillespie DO MACHINING AND ASSEMBLY SUPERVISOR: None. ANESTHESIA: IV sedation by the COPIER REPAIR TECHNICIAN. SPECIMENS: None. BLOOD LOSS: None. FLUIDS: Per anesthesia. POSTOPERATIVE CONDITION: Stable. INDICATION FOR PROCEDURE: The patient is a 37-year-old female who had been having some rectal bleeding, thought maybe she had a return of her anal fissure, needed a workup. FINDINGS: The patient had some very small internal hemorrhoids and a tight anal sphincter, but did not see any fissure at this time. PROCEDURE NOTE: After informed consent was obtained, the patient was brought to the endoscopy suite, placed in the bed left lateral decubitus position. She was administered IV sedation by the COPIER REPAIR TECHNICIAN who then monitored her vitals the entire time, heart rate, blood pressure and pulse ox and the scope was then inserted, pushed all the way about 140 cm, able to get to the cecum, took a picture of appendiceal orifice and then able to get into the terminal ileum, took a picture and then slowly withdrew the scope insufflating to look circumferentially at the kaur looking at the cecum, up the ascending colon to hepatic flexure, then down the transverse colon, splenic flexure, into the descending colon and down the sigmoid and finally into the rectum, retroflexed in the rectal vault, saw some minimal internal hemorrhoids, took a picture of this and then removed the scope, looked and tried to chino the anus, did not see any anal fissure. She did have a tight anal sphincter, but no obvious pathology. At this point, the patient was then recovered in endoscopy suite. Job ID: [id number] DocumentID: [id number] Dictated Date: 08/05/2018 16:51:54 Ad Operations Associate Date: 08/06/2018 00:02:41 Dictated By: CONNOR GILLESPIE DO
== END 2018-08-05 10:35 | disposition home or self-care (01) ==
LOC: ENDO 07:43
PROVIDERS: ATTEND Surgery
DX: K64.8 Other hemorrhoids (principal); K62.89 Other specified diseases of anus and rectum; I10 Essential (primary) hypertension; G47.33 Obstructive sleep apnea (adult) (pediatric); E66.01 Morbid (severe) obesity due to excess calories; Z68.41 Body mass index [BMI] 40.0-44.9, adult; Z87.891 Personal history of nicotine dependence; Z79.899 Other long term (current) drug therapy
CPT/HCPCS: 84703

== ENCOUNTER → 2018-12-10 | Outpatient (CLI) | payer BC, OTHER ==
--- NOTE | 2018-12-10 08:58 | Diagnostic Imaging Report ---
INDICATION: Bilateral breast densities. Patient presents for six-month followup. Correlation is made with prior mammogram from 05/05/2018 and 10/11/2017. 2-D and 3-D bilateral diagnostic mammography was performed with a Computer Aided Detection (CAD) system. FINDINGS: Scattered fibroglandular densities are identified bilaterally. Benign-appearing nodules in the upper-outer right breast are stable consistent with intramammary lymph nodes. Density in the upper outer left breast is stable. No new mass or malignant appearing microcalcifications are seen. Axillae are unremarkable. IMPRESSION: No mammographic feature suspicious for malignancy. Patient may return to routine annual screening mammography. ACR BI-RADS Category 2: Benign findings. Result letter will be mailed to the patient. Note: At least 10% of breast cancer is not imaged by mammography. Dictated by: Dictated on workstation # [id number]
== END ==
LOC: RAD 08:17
PROVIDERS: ATTEND Family Medicine
DX: R92.2 Inconclusive mammogram (principal)
CPT/HCPCS: 77066

== ENCOUNTER 2019-04-16 09:53 | Outpatient (RCR) | payer BC ==
[~2019-04-16 09:53] MED LIST changes: -DULO30CA48 PO; +DULO30CA49 PO; -DULO60CA58 PO; +DULO60CA59 PO
== END 2019-07-15 | disposition home or self-care (01) ==
LOC: CARD 09:53
PROVIDERS: ATTEND Physician Assistant
DX: R07.9 Chest pain, unspecified (principal); I10 Essential (primary) hypertension; G47.33 Obstructive sleep apnea (adult) (pediatric); R00.2 Palpitations; Z82.49 Family history of ischemic heart disease and other diseases of the circulatory system
CPT/HCPCS: 93270; 93306

== ENCOUNTER → 2020-02-29 | Outpatient (CLI) | payer BC ==
--- NOTE | 2020-02-29 16:24 | Diagnostic Imaging Report ---
INDICATION: Routine screening. COMPARISON: 12/10/2018 and 05/05/2018. TECHNIQUE: 2D and 3D bilateral screening mammography was performed with CAD. FINDINGS: Scattered fibroglandular densities are identified bilaterally. Intraparenchymal lymph nodes in the upper-outer right breast appear stable. No new mass or malignant appearing microcalcifications are seen. The axillae are unremarkable. IMPRESSION: No mammographic features suspicious for malignancy are identified. ACR BI-RADS Category 2: Benign findings. Result letter will be mailed to the patient. Note: At least 10% of breast cancer is not imaged by mammography. Dictated by: Dictated on workstation # [id number]
== END ==
LOC: RAD 14:38
PROVIDERS: ATTEND Family Medicine
DX: Z12.31 Encounter for screening mammogram for malignant neoplasm of breast (principal)
CPT/HCPCS: 77063; 77067

== ENCOUNTER → 2021-04-10 | Outpatient (CLI) | payer BC ==
[~2021-04-10] MED LIST changes: -NADO40TA PO; +NADO40TA2 PO
--- NOTE | 2021-04-11 12:32 | Diagnostic Imaging Report ---
INDICATION: Routine screening. Comparison is made with prior mammogram 02/29/2020 and 12/10/2018. 2-D and 3-D bilateral screening mammography was performed with CAD. Both breasts remain heterogeneously dense, limiting the sensitivity of mammography. Benign circumscribed nodules in the upper and outer aspect of the right breast appear stable. No spiculated mass or malignant-appearing microcalcifications are seen. Axillae are unremarkable. IMPRESSION: BI-RADS Category 2 No mammographic features suspicious for malignancy are identified. ACR BI-RADS Category 2: Benign findings. Result letter will be mailed to the patient. Note: At least 10% of breast cancer is not imaged by mammography. Dictated by: Dictated on workstation # [id number]
== END ==
LOC: RAD 14:30
PROVIDERS: ATTEND Family Medicine
DX: Z12.31 Encounter for screening mammogram for malignant neoplasm of breast (principal)
CPT/HCPCS: 77063; 77067

== ENCOUNTER → 2023-08-02 | Outpatient (CLI) | payer BC | LOC: CANPRECLI → CARD 13:58 | PROVIDERS: ATTEND Internal Medicine Cardiovascular Disease | DX: I10 Essential (primary) hypertension (principal) | CPT/HCPCS: 93306 ==